=== PATIENT | male | born 1960 | race Caucasian/White ===

== ENCOUNTER 2024-07-18 11:30 | Inpatient (IN) ==
--- NOTE | 2024-07-18 11:46 | Emergency Department Note ---
Impression & Plan Syncope, Alcohol abuse, Bed bug bite, Troponin I above reference range, Rhabdomyolysis, Symptomatic anemia, High anion gap metabolic acidosis, Elevated lactic acid level ED Provider Note NAME: BLANCA CLAIRE AGE: 64 SEX: M : 1960 ARRIVES VIA: Ambulance INFORMANT: Patient ED PROVIDER(S): Remigio Atkinson MD CHIEF COMPLAINT: Syncope PLAN: Disposition: Home MEDICAL DECISION MAKING: The patient is a 64 year-old gentleman with a past medical history of alcoholism who presents to the emergency department via EMS after being found down by his friend/roommate was a elderly gentleman where the patient reports she rolled out of bed last night and stepped in between the ground and could not get out. Patient reports he was in his normal state of health until last night and was in an awkward position where he could not get up. EMS was called to the scene for a lift assist but upon getting up the patient became acutely diaphoretic and had syncopized and was noted to have a heart rate in the 160s-170s in suspected a flutter/A-fib versus SVT blood pressure was noted to be 120/70's. Patient has any cough, congestion. Denies any chest pain or shortness of breath. He denies nausea or vomiting. The patient was given 500 cc of normal saline by EMS and 10 mg of diltiazem following my discussion with EMS on medical command consultation. There was some suspicion that there could have been some infiltration of the line but upon arrival emergency department his heart rate had improved to the 100s-120s and sinus tachycardia. Patient admits to drinking hard liquor heavily on a daily basis. He reports he has had no alcohol here over the past several days. He acknowledges he likely is at high risk for withdrawal but has not felt "shaky" in his past several days. On evaluation the patient is ill-appearing, diaphoretic but no distress, afebrile heart rate in the 100s-120s and vital signs otherwise stable. He appears pale, clinically dry. He is moving extremities equally without focal deficit. Of note, bedbugs were identified on the patient and he did go through decontamination. EKG without overt acute ischemia. CXR negative for acute cardiopulmonary process per my personal preliminary review/interpretation. WBC 6.6K w without neutrophil elevation or left shift. H/H is 5.1/16.9 with macrocytic MCV of 105. Platelets normal limits. INR is 1.2. VBG with pH of 7.3 and pCO2 of 31. Chemistry demonstrates metabolic acidosis with bicarbonate of 17 and anion gap of 22 with lactic acid initially 11 subsequently downtrending to 6.2 following initial IV fluid resuscitation. Creatinine is within normal limits however BUN is elevated at 45 consistent patient is clinically dry appearance. Iron is low at 29. Total area within normal limits with AST mildly above normal at 67 and LFTs otherwise unremarkable. Initial CPK is 1078. Initial high sensitive troponin is 50.7 with repeat downtrending to 43.4. Lipase is mildly above normal at 103, nonspecific. Procalcitonin is elevated at 1.1. TSH within normal limits. Medical alcohol was undetectable. Respiratory BioFire was negative. CTA chest negative for PE. Bronchial wall thickening is described which may reflect infectious/inflammatory airway disease. Distal esophageal thickening also is present. Otherwise, CT of the head and C-spine negative for acute normalities. CT of the ab pelvis negative for acute abnormalities. Patient was treated with IV hydration with 2 L of normal saline. He was also consented for blood products and transfused 2 units of PRBCs. 4 mg of IV Protonix also provided the patient denies melena. Given elevated pro calcitonin he was treated empirically with IV ceftriaxone. He is additionally provided with banana bag and IV thiamine and given 2 mg of IV Ativan for prophylaxis against alcohol withdrawal. Case was discussed with Dr. Shen, [facility] hospitalist, who will evaluate the patient for admission. Triage Nursing notes reviewed and agree them. Prior/external medical records reviewed Vital Signs: reviewed Differential diagnosis: Infection, dehydration, metabolic abnormality, hypo/hyperglycemia, electrolyte disturbance, anemia, hypoxia, cardiac sources, intracerebral event, toxicologic, neurologic, as well as other pathologies. ER treatment provided: See below. Diagnostics interpreted by me: ECG: Normal sinus rhythm, 97 bpm, no ectopy, no overt ST elevation or depression, QTc 439, QRS 80. Cardiac Monitoring: An order for continuous cardiac monitoring was placed and demonstrated Normal sinus rhythm, 97 bpm, no ectopy. Laboratory studies: See below Imaging studies: See below Consultation(s): Case was discussed with Dr. Shen, [facility] hospitalist, who will evaluate the patient for admission. HPI: The patient is a 64 year-old gentleman with a past medical history of alcoholism who presents to the emergency department via EMS after being found down by his friend/roommate was a elderly gentleman where the patient reports she rolled out of bed last night and stepped in between the ground and could not get out. Patient reports he was in his normal state of health until last night and was in an awkward position where he could not get up. EMS was called to the scene for a lift assist but upon getting up the patient became acutely diaphoretic and had syncopized and was noted to have a heart rate in the 160s- 170s in suspected a flutter/A-fib versus SVT blood pressure was noted to be 120/70's. Patient has any cough, congestion. Denies any chest pain or shortness of breath. He denies nausea or vomiting. The patient was given 500 cc of normal saline by EMS and 10 mg of diltiazem following my discussion with EMS on medical command consultation. There was some suspicion that there could have been some infiltration of the line but upon arrival emergency department his heart rate had improved to the 100s-120s and sinus tachycardia. Patient admits to drinking hard liquor heavily on a daily basis. He reports he has had no alcohol here over the past several days. He acknowledges he likely is at high risk for withdrawal but has not felt "shaky" in his past several days. ROS: See above HPI for pertinent positives & negatives. A total of 10 systems reviewed and were otherwise negative. VITALS:See Below PHYSICAL EXAMINATION: GENERAL: Awake, alert, ill-appearing, unkempt, in no distress HENT: Normocephalic, atraumatic. Oropharynx with dry mucous membranes and otherwise unremarkable. EYES: Normal conjunctiva. Sclera non-icteric. EOMI. No nystamgus. PEARRL. NECK: Supple. No nuchal rigidity. FROM. No JVD. RESPIRATORY: Clear to auscultation. CARDIAC: Tachycardic rate, normal rhythm. Extremities warm and well perfused. Pulses equal. ABDOMEN: Soft, non-distended. No tenderness to palpation. No rebound or guarding. No masses. MUSCULOSKELETAL: Chest examination reveals no tenderness. The back is symmetrical on inspection without obvious abnormality. There is no CVA tenderness to palpation. No joint edema. LOWER EXTREMITIES: Calves are equal size bilaterally and non-tender. No edema. No discoloration. NEURO: No focal sensory or motor deficits noted. 5/5 strength and SILT x 4 extremities. SKIN: Moderate pallor. Cool and clammy. No rash or jaundice noted. ED COURSE: Critical Care: I have personally spent greater than 115 minutes of critical care time in the direct management of this patient. This includes bedside care, interpretation of diagnostic studies, and testing, discussion with consultants, patient, and family members, and other required patient management activities. This 115 minutes is in excess of all separately billable procedures. Remigio Atkinson MD Past Med/Surg History Problem List (Updated 07/18/24 @ 23:33 by Remigio Atkinson MD) Elevated lactic acid level (Acute) High anion gap metabolic acidosis (Acute) Symptomatic anemia (Acute) Bed bug bite (Acute) Alcohol abuse (Acute) COPD (chronic obstructive pulmonary disease) Macrocytic anemia Transaminitis Coagulopathy Rhabdomyolysis (Acute) Hypotension Troponin I above reference range (Acute) Bedbug bite Alcohol abuse Anemia Syncope (Acute) Medical History Alcohol dependence Social History Smoking Status: Current every day smoker Tobacco Type: Cigarettes Cigarettes Per Day: 20; Do You Dip or Chew Tobacco: No; Tobacco Cessation Education Requested by Patient: Yes Hx Alcohol Use: Yes Alcohol type: hard liquor Hx Substance Use: No (unknown) Preferred Language: [place] Beliefs That Will Affect Care: None Current Living Situation: Other Current Living Situation Comment: pt states lives in home with roommate provided by [employer] Other Information That Helps Us Care for You: No Feels Safe at Home: Yes Safety Concerns: Feels Safe At This Time Assistive Devices: None Allergies Allergies Allergy/AdvReac Type Severity Reaction Status Date / Time [id number] Allergy Unknown Uncoded 09/21/05 12:32 Home Meds Home Medications Medication Instructions Recorded Confirmed No Known Home Medications 07/18/24 07/18/24 Results & Data (ED) Vital Signs Vital Signs - 24 hr 07/18/24 11:50 07/18/24 12:30 07/18/24 12:32 Temperature 37.4 C Temperature Source Oral Pulse Rate 101 H 97 H Pulse Rate [Finger] 113 H Pulse Rate from SpO2 Sensor Respiratory Rate 26 H 24 Respiratory Effort / Characteristics Non-Labored Spontaneous Respiratory Depth Normal Blood Pressure 134/7 L Blood Pressure [Left Arm] 121/57 L Blood Pressure Mean 49 Blood Pressure Mean [Left Arm] 78 Pulse Oximetry 100 99 Oxygen Delivery Method Room Air Room Air Oxygen Flow Rate Sepsis Recent Fever Within 48 Hours No Sepsis New/Unexplained Change in Mental Status No Sepsis Action Taken by Nursing Physician Notified Oxygen Flow Rate - Titration Pulse Oximetry Post Tiitration 07/18/24 13:27 07/18/24 14:00 07/18/24 14:00 Temperature Temperature Source Pulse Rate 234 H 174 H Pulse Rate [Finger] 104 H Pulse Rate from SpO2 Sensor Respiratory Rate 20 25 H Respiratory Effort / Characteristics Respiratory Depth Blood Pressure Blood Pressure [Left Arm] 111/63 Blood Pressure Mean Blood Pressure Mean [Left Arm] 79 Pulse Oximetry 99 Oxygen Delivery Method Room Air Oxygen Flow Rate Sepsis Recent Fever Within 48 Hours Sepsis New/Unexplained Change in Mental Status Sepsis Action Taken by Nursing Oxygen Flow Rate - Titration Pulse Oximetry Post Tiitration 07/18/24 14:00 07/18/24 14:00 07/18/24 14:00 Temperature Temperature Source Pulse Rate Pulse Rate [Finger] Pulse Rate from SpO2 Sensor Respiratory Rate Respiratory Effort / Characteristics Respiratory Depth Blood Pressure 99/70 L 99/70 L 99/70 L Blood Pressure [Left Arm] Blood Pressure Mean 98 98 98 Blood Pressure Mean [Left Arm] Pulse Oximetry Oxygen Delivery Method Oxygen Flow Rate Sepsis Recent Fever Within 48 Hours Sepsis New/Unexplained Change in Mental Status Sepsis Action Taken by Nursing Oxygen Flow Rate - Titration Pulse Oximetry Post Tiitration 07/18/24 14:03 07/18/24 14:04 07/18/24 14:04 Temperature Temperature Source Pulse Rate 113 H Pulse Rate [Finger] Pulse Rate from SpO2 Sensor 116 H Respiratory Rate 24 Respiratory Effort / Characteristics Respiratory Depth Blood Pressure 111/63 111/63 Blood Pressure [Left Arm] Blood Pressure Mean 79 79 Blood Pressure Mean [Left Arm] Pulse Oximetry 94 Oxygen Delivery Method Oxygen Flow Rate Sepsis Recent Fever Within 48 Hours Sepsis New/Unexplained Change in Mental Status Sepsis Action Taken by Nursing Oxygen Flow Rate - Titration Pulse Oximetry Post Tiitration 07/18/24 14:04 07/18/24 14:06 07/18/24 14:07 Temperature Temperature Source Pulse Rate 103 H 96 H Pulse Rate [Finger] Pulse Rate from SpO2 Sensor 103 H Respiratory Rate 23 Respiratory Effort / Characteristics Respiratory Depth Blood Pressure 111/63 Blood Pressure [Left Arm] Blood Pressure Mean 79 Blood Pressure Mean [Left Arm] Pulse Oximetry 100 Oxygen Delivery Method Oxygen Flow Rate Sepsis Recent Fever Within 48 Hours Sepsis New/Unexplained Change in Mental Status Sepsis Action Taken by Nursing Oxygen Flow Rate - Titration Pulse Oximetry Post Tiitration 07/18/24 14:28 07/18/24 14:30 07/18/24 14:30 Temperature Temperature Source Pulse Rate Pulse Rate [Finger] 101 H Pulse Rate from SpO2 Sensor Respiratory Rate 24 Respiratory Effort / Characteristics Respiratory Depth Blood Pressure 113/64 111/71 Blood Pressure [Left Arm] 111/71 Blood Pressure Mean 69 80 Blood Pressure Mean [Left Arm] 84 Pulse Oximetry 99 Oxygen Delivery Method Room Air Oxygen Flow Rate Sepsis Recent Fever Within 48 Hours Sepsis New/Unexplained Change in Mental Status Sepsis Action Taken by Nursing Oxygen Flow Rate - Titration Pulse Oximetry Post Tiitration 07/18/24 14:30 07/18/24 14:45 07/18/24 14:45 Temperature Temperature Source Pulse Rate 101 H Pulse Rate [Finger] Pulse Rate from SpO2 Sensor 96 H Respiratory Rate 18 Respiratory Effort / Characteristics Respiratory Depth Blood Pressure 115/60 115/60 Blood Pressure [Left Arm] Blood Pressure Mean 94 94 Blood Pressure Mean [Left Arm] Pulse Oximetry 97 Oxygen Delivery Method Oxygen Flow Rate Sepsis Recent Fever Within 48 Hours Sepsis New/Unexplained Change in Mental Status Sepsis Action Taken by Nursing Oxygen Flow Rate - Titration Pulse Oximetry Post Tiitration 07/18/24 14:48 07/18/24 14:57 07/18/24 14:59 Temperature Temperature Source Pulse Rate 85 99 H Pulse Rate [Finger] Pulse Rate from SpO2 Sensor 89 100 H Respiratory Rate 23 24 Respiratory Effort / Characteristics Respiratory Depth Blood Pressure 105/65 Blood Pressure [Left Arm] Blood Pressure Mean 67 Blood Pressure Mean [Left Arm] Pulse Oximetry 93 92 Oxygen Delivery Method Oxygen Flow Rate Sepsis Recent Fever Within 48 Hours Sepsis New/Unexplained Change in Mental Status Sepsis Action Taken by Nursing Oxygen Flow Rate - Titration Pulse Oximetry Post Tiitration 07/18/24 15:00 07/18/24 15:00 07/18/24 15:03 Temperature Temperature Source Pulse Rate 98 H Pulse Rate [Finger] Pulse Rate from SpO2 Sensor 97 H Respiratory Rate 25 H Respiratory Effort / Characteristics Respiratory Depth Blood Pressure 106/48 L 106/48 L Blood Pressure [Left Arm] Blood Pressure Mean 71 71 Blood Pressure Mean [Left Arm] Pulse Oximetry 77 L Oxygen Delivery Method Oxygen Flow Rate Sepsis Recent Fever Within 48 Hours Sepsis New/Unexplained Change in Mental Status Sepsis Action Taken by Nursing Oxygen Flow Rate - Titration Pulse Oximetry Post Tiitration 07/18/24 15:04 07/18/24 15:06 07/18/24 15:08 Temperature Temperature Source Pulse Rate 96 H Pulse Rate [Finger] Pulse Rate from SpO2 Sensor 84 Respiratory Rate 27 H Respiratory Effort / Characteristics Respiratory Depth Blood Pressure 115/54 L Blood Pressure [Left Arm] Blood Pressure Mean 83 Blood Pressure Mean [Left Arm] Pulse Oximetry 80 L 94 Oxygen Delivery Method Room Air Nasal Cannula Oxygen Flow Rate 0 Sepsis Recent Fever Within 48 Hours Sepsis New/Unexplained Change in Mental Status Sepsis Action Taken by Nursing Oxygen Flow Rate - Titration 3 Pulse Oximetry Post Tiitration 94 07/18/24 15:08 07/18/24 15:08 07/18/24 15:15 Temperature Temperature Source Pulse Rate 90 Pulse Rate [Finger] Pulse Rate from SpO2 Sensor 93 H Respiratory Rate 28 H Respiratory Effort / Characteristics Respiratory Depth Blood Pressure 115/54 L 115/54 L Blood Pressure [Left Arm] Blood Pressure Mean 83 83 Blood Pressure Mean [Left Arm] Pulse Oximetry 94 Oxygen Delivery Method Oxygen Flow Rate Sepsis Recent Fever Within 48 Hours Sepsis New/Unexplained Change in Mental Status Sepsis Action Taken by Nursing Oxygen Flow Rate - Titration Pulse Oximetry Post Tiitration 07/18/24 15:15 07/18/24 15:15 07/18/24 15:15 Temperature Temperature Source Pulse Rate Pulse Rate [Finger] Pulse Rate from SpO2 Sensor Respiratory Rate Respiratory Effort / Characteristics Respiratory Depth Blood Pressure 120/61 120/61 120/61 Blood Pressure [Left Arm] Blood Pressure Mean 77 77 77 Blood Pressure Mean [Left Arm] Pulse Oximetry Oxygen Delivery Method Oxygen Flow Rate Sepsis Recent Fever Within 48 Hours Sepsis New/Unexplained Change in Mental Status Sepsis Action Taken by Nursing Oxygen Flow Rate - Titration Pulse Oximetry Post Tiitration Laboratory Data 07/18/24 20:54 07/18/24 11:45 Lab Results 07/18/24 07/18/24 07/18/24 Range/Units 11:45 11:47 11:54 WBC 6.69 (4.8-10.8) K/ul RBC 1.61 L (4.70-6.10) M/uL Hgb 5.1 L* (14.0-18.0) g/dl POC Hgb 5.4 L* (14.0-18.0) g/dl Hct 16.9 L* (42.0-52.0) % POC Hct 16 L* (42-52) % MCV 105.0 H (80.0-100.0) fL MCH 31.7 (25.0-34.0) pg MCHC 30.2 L (32.0-36.0) g/dL RDW Std Deviation 52.4 H (36.4-46.3) fL RDW Coeff of Jourdan 14.0 (11.5-14.5) % Plt Count 296 (130-400) K/uL MPV 10.1 (9.4-12.4) fL Immature Gran % (Auto) 1.2 % Neut % (Auto) 68.8 % Lymph % (Auto) 17.9 % Huntington % (Auto) 12.0 % Eos % (Auto) 0.0 % Baso % (Auto) 0.1 % Reticulocyte % (Auto) 6.12 H (0.50-2.00) % Neut # (Auto) 4.60 (1.40-6.50) K/uL Lymph # (Auto) 1.20 (1.20-3.40) K/uL Huntington # (Auto) 0.80 H (0.11-0.59) K/uL Eos # (Auto) 0.00 (0.00-0.50) K/uL Baso # (Auto) 0.01 (0.00-0.20) K/uL Reticulocyte # 0.100 (0.020-0.100) 10^6/uL Immature Gran # (Auto) 0.08 (0.01-0.20) K/uL Absolute Nucleated RBC 0.15 H (0.00-0.12) K/uL Nucleated RBC % (auto) 2.2 % Polychromasia 1+ Peripher Smr Path Cons PT 13.0 H (9.0-12.0) Seconds INR 1.2 H (0.9-1.1) VBG pH (7.36-7.41) VBG pCO2 (38-50) mmHg VBG pO2 mmHg VBG HCO3 mmol/L VBG O2 Saturation % VBG Base Excess mEq/L POC Sodium 134 L (135-144) mmol/L Sodium 136 (136-145) mmol/L POC Potassium 3.0 L (3.3-5.0) mmol/L Potassium 3.1 L (3.5-5.1) mmol/L POC Chloride 98 L (101-112) mmol/L Chloride 97 L (98-107) mmol/L Carbon Dioxide 17 L (21-32) mmol/L POC Total CO2 15 L (24-31) mmol/L Anion Gap 22 H (3-11) POC Anion Gap 25.0 (16-25) mmol/L POC BUN 38 H (7-18) mg/dl BUN 45 H (6-23) mg/dl Creatinine 1.08 (0.6-1.4) mg/dl POC Creatinine 1.0 (0.6-1.3) mg/dl Est Cr Clr Drug Dosing 56.1 ml/min Est GFR ( Amer) 84.8 ml/min Est GFR (Non-Af Amer) 73.2 ml/min BUN/Creatinine Ratio 41.7 H (10-20) Glucose 190 H (70-99(Fasting)) mg/dl POC Glucose (other) 182 H (70-99) mg/dl Osmolality 301 H (280-300) mOsm/kg Lactate 11.0 H* (0.4-2.0) mmol/L Calcium 8.7 (8.6-10.3) mg/dl POC Ioniz Calcium Dorie 1.17 (1.12-1.32) mmol/l Phosphorus 2.7 (2.5-4.9) mg/dl Magnesium 2.3 (1.7-2.4) mg/dl Iron 29 L (35-175) mcg/dl Unsaturated IBC 227 (155-355) mcg/dl Transferrin 201 (200-360) mg/dl Ferritin 134.7 (8-388) ng/ml Total Bilirubin 0.6 (0.2-1.0) mg/dl AST 67 H (13-39) U/L ALT 37 (7-52) U/L Alkaline Phosphatase 33 L (34-104) U/L Total Creatine Kinase 1078 H (30-223) U/L Troponin I High Sens 58.7 H* (0-20) pg/ml Total Protein 5.0 L (6.0-8.3) gm/dl Albumin 3.1 L (3.4-5.0) gm/dl Globulin 1.9 L (2.5-4.0) gm/dl Albumin/Globulin Ratio 1.6 (0.9-2) Lipase 103 H (11-82) U/L Vitamin B12 352 (180-914) pg/ml Folate 3.05 L (>5.38) ng/ml Procalcitonin 1.19 H (0-0.5) ng/ml TSH (0.300-4.500) uIu/ml Salicylates (3.0-30) mg/dl Acetaminophen (10-30) ug/ml Ethyl Alcohol mg/dL < 10.0 (<10.0) mg/dl Adenovirus (PCR) Not Detected (NotDetected) Anaplasma Smear Babesia Smear B. pertussis DNA (PCR) Not Detected (NotDetected) B.parapertussis DNA PCR Not Detected (NotDetected) Lyme Disease Screen (Negative) C. pneumoniae DNA (PCR) Not Detected (NotDetected) Coronavirus OC43 (PCR) Not Detected (NotDetected) Coronavirus HKU1 (PCR) Not Detected (NotDetected) Coronavirus 229E (PCR) Not Detected (NotDetected) SARS-CoV-2 (PCR) Not Detected (NotDetected) Coronavirus NL63 (PCR) Not Detected (NotDetected) HIV 1&2 Ab/P24 Ag 4thGn (Negative) Human Metapneumovir PCR Not Detected (NotDetected) Influenza Type A (PCR) Not Detected (NotDetected) Influenza Type B (PCR) Not Detected (NotDetected) M. pneumoniae (PCR) Not Detected (NotDetected) Parainfluenza 1 (PCR) Not Detected (NotDetected) Parainfluenza 2 (PCR) Not Detected (NotDetected) Parainfluenza 3 (PCR) Not Detected (NotDetected) Parainfluenza 4 (PCR) Not Detected (NotDetected) RSV (PCR) Not Detected (NotDetected) Entero/Rhino (PCR) Not Detected (NotDetected) Blood Type Blood Type Recheck Antibody Screen Crossmatch 07/18/24 07/18/24 07/18/24 Range/Units 11:58 12:18 12:53 WBC (4.8-10.8) K/ul RBC (4.70-6.10) M/uL Hgb (14.0-18.0) g/dl POC Hgb (14.0-18.0) g/dl Hct (42.0-52.0) % POC Hct (42-52) % MCV (80.0-100.0) fL MCH (25.0-34.0) pg MCHC (32.0-36.0) g/dL RDW Std Deviation (36.4-46.3) fL RDW Coeff of Jourdan (11.5-14.5) % Plt Count (130-400) K/uL MPV (9.4-12.4) fL Immature Gran % (Auto) % Neut % (Auto) % Lymph % (Auto) % Huntington % (Auto) % Eos % (Auto) % Baso % (Auto) % Reticulocyte % (Auto) (0.50-2.00) % Neut # (Auto) (1.40-6.50) K/uL Lymph # (Auto) (1.20-3.40) K/uL Huntington # (Auto) (0.11-0.59) K/uL Eos # (Auto) (0.00-0.50) K/uL Baso # (Auto) (0.00-0.20) K/uL Reticulocyte # (0.020-0.100) 10^6/uL Immature Gran # (Auto) (0.01-0.20) K/uL Absolute Nucleated RBC (0.00-0.12) K/uL Nucleated RBC % (auto) % Polychromasia Peripher Smr Path Cons Cancelled PT (9.0-12.0) Seconds INR (0.9-1.1) VBG pH 7.30 L (7.36-7.41) VBG pCO2 31 L (38-50) mmHg VBG pO2 39 mmHg VBG HCO3 15 mmol/L VBG O2 Saturation < 60.0 % VBG Base Excess -9.9 mEq/L POC Sodium (135-144) mmol/L Sodium (136-145) mmol/L POC Potassium (3.3-5.0) mmol/L Potassium (3.5-5.1) mmol/L POC Chloride (101-112) mmol/L Chloride (98-107) mmol/L Carbon Dioxide (21-32) mmol/L POC Total CO2 (24-31) mmol/L Anion Gap (3-11) POC Anion Gap (16-25) mmol/L POC BUN (7-18) mg/dl BUN (6-23) mg/dl Creatinine (0.6-1.4) mg/dl POC Creatinine (0.6-1.3) mg/dl Est Cr Clr Drug Dosing ml/min Est GFR ( Amer) ml/min Est GFR (Non-Af Amer) ml/min BUN/Creatinine Ratio (10-20) Glucose (70-99(Fasting)) mg/dl POC Glucose (other) (70-99) mg/dl Osmolality (280-300) mOsm/kg Lactate (0.4-2.0) mmol/L Calcium (8.6-10.3) mg/dl POC Ioniz Calcium Dorie (1.12-1.32) mmol/l Phosphorus (2.5-4.9) mg/dl Magnesium (1.7-2.4) mg/dl Iron (35-175) mcg/dl Unsaturated IBC (155-355) mcg/dl Transferrin (200-360) mg/dl Ferritin (8-388) ng/ml Total Bilirubin (0.2-1.0) mg/dl AST (13-39) U/L ALT (7-52) U/L Alkaline Phosphatase (34-104) U/L Total Creatine Kinase (30-223) U/L Troponin I High Sens (0-20) pg/ml Total Protein (6.0-8.3) gm/dl Albumin (3.4-5.0) gm/dl Globulin (2.5-4.0) gm/dl Albumin/Globulin Ratio (0.9-2) Lipase (11-82) U/L Vitamin B12 (180-914) pg/ml Folate (>5.38) ng/ml Procalcitonin (0-0.5) ng/ml TSH (0.300-4.500) uIu/ml Salicylates (3.0-30) mg/dl Acetaminophen (10-30) ug/ml Ethyl Alcohol mg/dL (<10.0) mg/dl Adenovirus (PCR) (NotDetected) Anaplasma Smear See Comment Babesia Smear See Comment B. pertussis DNA (PCR) (NotDetected) B.parapertussis DNA PCR (NotDetected) Lyme Disease Screen Negative (Negative) C. pneumoniae DNA (PCR) (NotDetected) Coronavirus OC43 (PCR) (NotDetected) Coronavirus HKU1 (PCR) (NotDetected) Coronavirus 229E (PCR) (NotDetected) SARS-CoV-2 (PCR) (NotDetected) Coronavirus NL63 (PCR) (NotDetected) HIV 1&2 Ab/P24 Ag 4thGn Negative (Negative) Human Metapneumovir PCR (NotDetected) Influenza Type A (PCR) (NotDetected) Influenza Type B (PCR) (NotDetected) M. pneumoniae (PCR) (NotDetected) Parainfluenza 1 (PCR) (NotDetected) Parainfluenza 2 (PCR) (NotDetected) Parainfluenza 3 (PCR) (NotDetected) Parainfluenza 4 (PCR) (NotDetected) RSV (PCR) (NotDetected) Entero/Rhino (PCR) (NotDetected) Blood Type O Positive Blood Type Recheck O Positive Antibody Screen NEGATIVE Crossmatch See Detail 07/18/24 Range/Units 14:59 WBC (4.8-10.8) K/ul RBC (4.70-6.10) M/uL Hgb 4.1 L* (14.0-18.0) g/dl POC Hgb (14.0-18.0) g/dl Hct 13.6 L* (42.0-52.0) % POC Hct (42-52) % MCV (80.0-100.0) fL MCH (25.0-34.0) pg MCHC (32.0-36.0) g/dL RDW Std Deviation (36.4-46.3) fL RDW Coeff of Jourdan (11.5-14.5) % Plt Count (130-400) K/uL MPV (9.4-12.4) fL Immature Gran % (Auto) % Neut % (Auto) % Lymph % (Auto) % Huntington % (Auto) % Eos % (Auto) % Baso % (Auto) % Reticulocyte % (Auto) (0.50-2.00) % Neut # (Auto) (1.40-6.50) K/uL Lymph # (Auto) (1.20-3.40) K/uL Huntington # (Auto) (0.11-0.59) K/uL Eos # (Auto) (0.00-0.50) K/uL Baso # (Auto) (0.00-0.20) K/uL Reticulocyte # (0.020-0.100) 10^6/uL Immature Gran # (Auto) (0.01-0.20) K/uL Absolute Nucleated RBC (0.00-0.12) K/uL Nucleated RBC % (auto) % Polychromasia Peripher Smr Path Cons PT (9.0-12.0) Seconds INR (0.9-1.1) VBG pH (7.36-7.41) VBG pCO2 (38-50) mmHg VBG pO2 mmHg VBG HCO3 mmol/L VBG O2 Saturation % VBG Base Excess mEq/L POC Sodium (135-144) mmol/L Sodium (136-145) mmol/L POC Potassium (3.3-5.0) mmol/L Potassium (3.5-5.1) mmol/L POC Chloride (101-112) mmol/L Chloride (98-107) mmol/L Carbon Dioxide (21-32) mmol/L POC Total CO2 (24-31) mmol/L Anion Gap (3-11) POC Anion Gap (16-25) mmol/L POC BUN (7-18) mg/dl BUN (6-23) mg/dl Creatinine (0.6-1.4) mg/dl POC Creatinine (0.6-1.3) mg/dl Est Cr Clr Drug Dosing ml/min Est GFR ( Amer) ml/min Est GFR (Non-Af Amer) ml/min BUN/Creatinine Ratio (10-20) Glucose (70-99(Fasting)) mg/dl POC Glucose (other) (70-99) mg/dl Osmolality (280-300) mOsm/kg Lactate 6.2 H* (0.4-2.0) mmol/L Calcium (8.6-10.3) mg/dl POC Ioniz Calcium Dorie (1.12-1.32) mmol/l Phosphorus (2.5-4.9) mg/dl Magnesium (1.7-2.4) mg/dl Iron (35-175) mcg/dl Unsaturated IBC (155-355) mcg/dl Transferrin (200-360) mg/dl Ferritin (8-388) ng/ml Total Bilirubin (0.2-1.0) mg/dl AST (13-39) U/L ALT (7-52) U/L Alkaline Phosphatase (34-104) U/L Total Creatine Kinase (30-223) U/L Troponin I High Sens 43.4 H D (0-20) pg/ml Total Protein (6.0-8.3) gm/dl Albumin (3.4-5.0) gm/dl Globulin (2.5-4.0) gm/dl Albumin/Globulin Ratio (0.9-2) Lipase (11-82) U/L Vitamin B12 (180-914) pg/ml Folate (>5.38) ng/ml Procalcitonin (0-0.5) ng/ml TSH 1.539 (0.300-4.500) uIu/ml Salicylates < 3.0 L (3.0-30) mg/dl Acetaminophen < 3 L (10-30) ug/ml Ethyl Alcohol mg/dL (<10.0) mg/dl Adenovirus (PCR) (NotDetected) Anaplasma Smear Babesia Smear B. pertussis DNA (PCR) (NotDetected) B.parapertussis DNA PCR (NotDetected) Lyme Disease Screen (Negative) C. pneumoniae DNA (PCR) (NotDetected) Coronavirus OC43 (PCR) (NotDetected) Coronavirus HKU1 (PCR) (NotDetected) Coronavirus 229E (PCR) (NotDetected) SARS-CoV-2 (PCR) (NotDetected) Coronavirus NL63 (PCR) (NotDetected) HIV 1&2 Ab/P24 Ag 4thGn (Negative) Human Metapneumovir PCR (NotDetected) Influenza Type A (PCR) (NotDetected) Influenza Type B (PCR) (NotDetected) M. pneumoniae (PCR) (NotDetected) Parainfluenza 1 (PCR) (NotDetected) Parainfluenza 2 (PCR) (NotDetected) Parainfluenza 3 (PCR) (NotDetected) Parainfluenza 4 (PCR) (NotDetected) RSV (PCR) (NotDetected) Entero/Rhino (PCR) (NotDetected) Blood Type Blood Type Recheck Antibody Screen Crossmatch Administered Medications Budesonide (Budesonide 0.25 Mg/2 Ml Vial (Pulmicort)) 0.25 mg NEB BIDR JARED Stop: 08/17/24 18:59 Last Admin: 07/18/24 20:14 Dose: 0.25 mg Documented By: ELIOT Formoterol Fumarate (Formoterol 20 Mcg/2 Ml Vial) 20 mcg INH BIDR JARED Stop: 08/17/24 18:59 Last Admin: 07/18/24 20:14 Dose: 20 mcg Documented By: ELIOT Folic Acid 1 mg/ Syringe 10 mls @ 5 mls/min IV QAM JARED Stop: 08/17/24 13:59 Last Admin: 07/18/24 15:23 Dose: 5 mls/min Documented By: GALI Parenteral Electrolytes (Plasma-Lyte A Ph 7.4) 1,000 mls @ 100 mls/hr IV .Q10H JARED Stop: 08/17/24 16:28 Last Infusion: 07/18/24 22:14 Dose: 0 mls/hr Documented By: Admin: 07/18/24 19:50 Dose: 100 mls/hr Documented By: Infusion: 07/18/24 19:50 Dose: Infused Documented By: Admin: 07/18/24 16:46 Dose: 100 mls/hr Documented By: MADELINE Miscellaneous (Icu Protocol For Hyperglycemia) 1 each N/A ACHS JARED Stop: 07/20/24 16:29 Last Admin: 07/18/24 19:52 Dose: 1 each Documented By: Admin: 07/18/24 16:46 Dose: Not Given Documented By: MADELINE Discontinued Medications Sodium Chloride (Nss) 1,000 mls @ 999 mls/hr IV .Q1H1M ONE Stop: 07/18/24 12:46 Last Infusion: 07/18/24 13:25 Dose: Infused Documented By: Admin: 07/18/24 12:20 Dose: 999 mls/hr Documented By: WILFREDO Multivitamins 10 ml/ Thiamine HCl 100 mg/ Folic Acid 1 mg/Sodium Chloride 1,011.2 mls @ 500 mls/hr IV .Q2H2M ONE Stop: 07/18/24 13:47 Last Infusion: 07/18/24 14:39 Dose: Infused Documented By: Admin: 07/18/24 12:20 Dose: 500 mls/hr Documented By: WILFREDO Thiamine HCl 200 mg/ Sodium (Chloride) 52 mls @ 210 mls/hr IV NOW STA Stop: 07/18/24 12:01 Last Infusion: 07/18/24 13:25 Dose: Infused Documented By: Admin: 07/18/24 12:20 Dose: 210 mls/hr Documented By: WILFREDO Pantoprazole Sodium 40 mg/ (Syringe) 10 mls @ 5 mls/min IV NOW ONE Stop: 07/18/24 12:03 Last Admin: 07/18/24 12:23 Dose: 5 mls/min Documented By: WILFREDO Ceftriaxone Sodium (Rocephin) 2,000 mg in 50 mls @ 100 mls/hr IV NOW STA Stop: 07/18/24 13:31 Last Infusion: 07/18/24 15:05 Dose: Infused Documented By: Admin: 07/18/24 14:35 Dose: 100 mls/hr Documented By: WILFREDO Potassium Chloride ([place] / Wtr) 10 meq in 100 mls @ 100 mls/hr IV Q1H JARED Stop: 07/18/24 19:28 Last Infusion: 07/18/24 22:04 Dose: Infused Documented By: Admin: 07/18/24 20:45 Dose: 100 mls/hr Documented By: Infusion: 07/18/24 20:19 Dose: Infused Documented By: Admin: 07/18/24 19:19 Dose: 100 mls/hr Documented By: Infusion: 07/18/24 19:08 Dose: Infused Documented By: Admin: 07/18/24 16:46 Dose: 100 mls/hr Documented By: MADELINE Phytonadione 5 mg/ Dextrose 50.5 mls @ 101 mls/hr IV NOW STA Stop: 07/18/24 17:25 Last Infusion: 07/18/24 19:00 Dose: Infused Documented By: Admin: 07/18/24 17:22 Dose: 101 mls/hr Documented By: MADELINE Ioversol (Optiray 320 100ml) 93 ml IV ONCE ONE Stop: 07/18/24 14:24 Last Admin: 07/18/24 14:23 Dose: 93 ml Documented By: RAMAN Lorazepam (Lorazepam 1 Mg/1 Ml Syr Ed Inj Use) 2 mg IV ONE STA Stop: 07/18/24 13:47 Last Admin: 07/18/24 14:35 Dose: 2 mg Documented By: WILFREDO Imaging Data Radiologist's Impression: Chest X-Ray 07/18/24 11:28 XR chest 1V portable CLINICAL HISTORY: Chest pain, nonspecific TECHNIQUE: Single frontal radiograph of the chest was obtained. Comparison: None available at the time of this dictation. FINDINGS: No lines and tubes are seen. The cardiomediastinal silhouette is normal. The lungs are clear. No evidence of pleural effusion or pneumothorax. IMPRESSION: No acute chest disease. ACT 112: Negative or not required by law. Electronically signed by: Corey Jiménez M.D. 07/18/2024 11:55 AM Abdomen/Pelvis CT 07/18/24 12:47 CT abd pelvis IV con only CLINICAL HISTORY: anemia, syncope, tachy TECHNIQUE: Helical axial images of the abdomen and pelvis were obtained and displayed. Automated dose lowering techniques and/or adjustment according to patient size were utilized for this exam. This exam was performed with intravenous contrast. CT DOSE: 2091.24 mGy.cm COMPARISON: None available at the time of this dictation. FINDINGS: Lower chest: For findings above the diaphragm, please see CT chest performed same day. Liver: Hepatic steatosis is noted. Gallbladder and biliary tree: No calcified gallstones. Normal caliber wall. No intra- or extrahepatic biliary ductal dilation. Pancreas: Unremarkable, no focal lesions. Spleen: Unremarkable. Adrenals: Unremarkable. Kidneys and ureters: Renal cysts are seen. Bladder: Unremarkable. Reproductive organs: Unremarkable. Bowel: Diverticulosis is seen without evidence of diverticulitis. A small hiatal hernia is seen. Lymph nodes Retroperitoneal: Unremarkable. Pelvic: Unremarkable. Mesenteric: Unremarkable. Peritoneum: Normal. Vessels: Atherosclerotic calcifications are seen. Infrarenal aortic aneurysm measures up to 30 mm. Abdominal wall: Unremarkable. Bones: Unremarkable. IMPRESSION: 1. No acute abnormalities and in particular no evidence of acute fracture. 2. Hepatic steatosis. 3. Diverticulosis is seen without diverticulitis. ACT 112: Negative or not required by law. Electronically signed by: Corey Jiménez M.D. 07/18/2024 3:[address] 07/18/24 12:[address] DOSE: HISTORY: fall TECHNIQUE: Multiaxial CT images of the cervical spine were performed and reformatted in the sagittal and coronal plane without the use of contrast. A dose lowering technique was utilized adhering to the principles of ALARA. COMPARISON: None. FINDINGS: No fractures. No subluxation. Prevertebral soft tissues and the C1-C2 interval are intact. No pneumothorax. IMPRESSION: No fractures within the cervical spine. ACT 112: Negative or not required by law. Electronically signed by: Mateus Taveras M.D. 07/18/2024 3:03 PM Chest CTA 07/18/24 12:47 CT angio chest PE protocol CLINICAL HISTORY: hypoxia, tachy, r/o PE TECHNIQUE: Multidetector row helical CT of the chest was performed with angiographic protocol. Coronal and sagittal reformations were obtained. Coronal and sagittal MIPS were obtained from the axial data set and were submitted for review. Automated dose lowering techniques and/or adjustment according to patient size were utilized for this exam. Comparison: Comparison is made to chest radiograph 07/08/2024 FINDINGS: Lungs and pleura: Diffuse centrilobular emphysema is seen most prominent in the upper lobes. Mild bronchial wall thickening is seen. Heart and pericardium: The pulmonary hypertrophy of the interatrial septum is seen. Vessels: No evidence of pulmonary embolism. Mediastinum and matthieu: Thickening of the distal esophagus is seen. Chest wall and lower neck: Unremarkable. Abdomen: For findings below the diaphragm, please refer to CT of the abdomen dated the same. Bones: Degenerative changes in the thoracic spine. IMPRESSION: 1. No acute abnormality and in particular no evidence of pulmonary embolus. 2. Bronchial wall thickening may represent infectious/inflammatory airways disease. 3. Distal esophageal thickening, clinical correlation for esophagitis is recommended. ACT 112: Negative or not required by law. Electronically signed by: Corey Jiménez M.D. 07/18/2024 2:[address] 07/18/24 12:47 CT SCAN OF THE BRAIN WITHOUT IV CONTRAST CLINICAL HISTORY: Fall. Change in mental status. COMPARISON STUDY: No priors. TECHNIQUE: Unenhanced axial CT scan of the brain is performed from the vertex to the skull base. A dose lowering technique was utilized adhering to the principles of ALARA. FINDINGS: Brain parenchyma: There is age-related involutional change noting mild subcortical and periventricular microangiopathic disease. There is no hemorrhage, mass effect, or evidence of acute territorial ischemia by CT criteria. Faith-white matter differentiation is preserved. No extra-axial fluid collection is seen. Ventricles, sulci, cisterns: Prominent secondary to involutional change. Intracranial vasculature: There is atherosclerotic calcification of the cavernous carotid arteries. Calvarium: Unremarkable. Sinuses and mastoids: The visualized paranasal sinuses are clear. The mastoid air cells are well pneumatized. Orbits: The bony orbits are grossly intact. IMPRESSION: No acute intracranial abnormality. ACT 112: Negative or not required by law. Electronically signed by: Vincent Meza M.D. 07/18/2024 2:45 PM Discharge Plan Visit Data Chief Complaint: Cardiac Assessment ED Provider: Remigio Atkinson Discharge Problem: Syncope, Alcohol abuse, Bed bug bite, Troponin I above reference range, Rhabdomyolysis, Symptomatic anemia, High anion gap metabolic acidosis, Elevated lactic acid level Patient Disposition: Admitted As Inpatient Discharge Instructions Interventions: ED Discharge Assessment Last Done: 07/18/24 16:04 Discharge Problem: Syncope Qualifiers: Syncope type: unspecified Qualified Code(s): R55 - Syncope and collapse Bed bug bite Qualifiers: Encounter type: initial encounter Qualified Code(s): W57.XXXA - Bitten or stung by nonvenomous insect and other nonvenomous arthropods, initial encounter Rhabdomyolysis Qualifiers: Rhabdomyolysis type: traumatic Encounter type: initial encounter Qualified Code(s): T79.6XXA - Traumatic ischemia of muscle, initial encounter
--- NOTE | 2024-07-18 11:57 | XRay Report ---
XR chest 1V portable CLINICAL HISTORY: Chest pain, nonspecific TECHNIQUE: Single frontal radiograph of the chest was obtained. Comparison: None available at the time of this dictation. FINDINGS: No lines and tubes are seen. The cardiomediastinal silhouette is normal. The lungs are clear. No evid ence of pleural effusion or pneumothorax. IMPRESSION: No acute chest disease. ACT 112: Negative or not required by law. Electronically signed by: Corey Jiménze M.D. 07/18/2024 11:55 AM
[2024-07-18] MEDS ORDERED: SODIUM CHLORIDE 0.9% 250 ML IV PRN ×3 (12:00→21:55)
[2024-07-18 12:07] LABS: iSTAT Hemoglobin 5.4 g/dl (14.0-18.0); iSTAT Ionized Calcium 1.17 mmol/l (1.12-1.32)
[2024-07-18] MEDS: SODIUM CHLORIDE 0.9% 1,000 ML IV ONE (12:20)
[2024-07-18] MEDS: MULTI-VITAMIN INFUSION 10 ML, THIAMINE HCL 100 MG, FOLIC ACID 1 MG in SODIUM CHLORIDE 0... IV ONE (12:20)
[2024-07-18] MEDS: THIAMINE HCL 200 MG in SODIUM CHLORIDE 0.9% 50 ML IV STA (12:20)
[2024-07-18] MEDS: PANTOprazole 40 MG in SYRINGE 0 ML IV ONE (12:23)
[2024-07-18 12:31] LABS: Base Excess VBG -9.9 mEq/L; HCO3 VBG 15 mmol/L; Oxygen Saturation VBG < 60.0 %; PCO2 VBG 31 mmHg (38-50); PO2 VBG 39 mmHg
[2024-07-18 12:38] LABS: Hematocrit (blood only) 16.9 % (42.0-52.0); Hemoglobin 5.1 g/dl (14.0-18.0); Mean Corpuscular Hemoglobin 31.7 pg (25.0-34.0); Mean Corpuscular Hgb Conc 30.2 g/dL (32.0-36.0); Mean Platelet Volume 10.1 fL (9.4-12.4); Nucleated RBC # (auto) 0.15 K/uL (0.00-0.12); Nucleated RBC % (auto) 2.2 %; Platelet Count 296 K/uL (130-400); RDW Standard Deviation 52.4 fL (36.4-46.3); Red Blood Count 1.61 M/uL (4.70-6.10); White Blood Count 6.69 K/ul (4.8-10.8)
[2024-07-18 12:39] LABS: Albumin Globulin Ratio 1.6 (0.9-2); Albumin Level 3.1 gm/dl (3.4-5.0); BUN Creatinine Ratio 41.7 (10-20); Bilirubin,Total 0.6 mg/dl (0.2-1.0); Calcium 8.7 mg/dl (8.6-10.3); Creatinine Clr Calc Pharmacy 56.1 ml/min; Est GFR (African American) 84.8 ml/min; Est GFR (Non-African American) 73.2 ml/min; Globulin 1.9 gm/dl (2.5-4.0); INR 1.2 (0.9-1.1); Magnesium 2.3 mg/dl (1.7-2.4); Phosphorus 2.7 mg/dl (2.5-4.9); Potassium 3.1 mmol/L (3.5-5.1)
[2024-07-18 12:42] LABS: Basophils # (auto) 0.01 K/uL (0.00-0.20); Basophils % (auto) 0.1 %; Immature Granulocytes # (auto) 0.08 K/uL (0.01-0.20); Immature Granulocytes % (auto) 1.2 %; Lymphocytes % (auto) 17.9 %; Neutrophils % (auto) 68.8 %; Polychromasia 1+
[2024-07-18 12:43] LABS: Reticulocyte % 6.12 % (0.50-2.00)
[2024-07-18 12:57] LABS: Ferritin 134.7 ng/ml (8-388); Troponin I High Sensitivity 58.7 pg/ml (0-20)
[2024-07-18 13:24] LABS: Adenovirus PCR Not Detected (NotDetected); Bordetella parapertussis PCR Not Detected (NotDetected); Bordetella pertussis PCR Not Detected (NotDetected); Chlamydia pneumoniae PCR Not Detected (NotDetected); Coronavirus 229E PCR Not Detected (NotDetected); Coronavirus CoV-2 (COVID19)PCR Not Detected (NotDetected); Coronavirus HKU1 PCR Not Detected (NotDetected); Coronavirus NL63 PCR Not Detected (NotDetected); Coronavirus OC43PCR Not Detected (NotDetected); Human Metapneumovirus PCR Not Detected (NotDetected); Influenza A PCR Not Detected (NotDetected); Influenza B PCR Not Detected (NotDetected); Mycoplasma pneumoniae PCR Not Detected (NotDetected); Parainfluenza Virus 1 PCR Not Detected (NotDetected); Parainfluenza Virus 2 PCR Not Detected (NotDetected); Parainfluenza Virus 3 PCR Not Detected (NotDetected); Parainfluenza Virus 4 PCR Not Detected (NotDetected); Respiratory Syncytial VirusPCR Not Detected (NotDetected); Rhinovirus/Enterovirus PCR Not Detected (NotDetected)
[2024-07-18 13:24] LABS: Folate (Folic Acid),Ser orPlas 3.05 ng/ml (>5.38)
[2024-07-18] MEDS ORDERED: LORazepam 3 MG in SYRINGE 1.5 ML IV PRN (13:46)
[2024-07-18] MEDS ORDERED: Ativan IV Alcohol Withdrawal--Active Protocol IV PRN (13:46)
[2024-07-18] MEDS ORDERED: LORazepam 2 MG in SYRINGE 1 ML IV PRN (13:46)
[2024-07-18] MEDS ORDERED: LORazepam 1 MG in SYRINGE 0.5 ML IV PRN (13:46)
--- NOTE | 2024-07-18 13:57 | History & Physical Report ---
Date of Service July 18, 2024 Assessment & Plan (1) Anemia: Plan: Anemia, hemoglobin 5.1 on admission With fluids patient is normotensive, and minimally tachycardic at bedside assessment. He denies GI bleeding. Likely chronic given relatively normal vitals and good mentation despite profound anemia. DDx includes AOCD, nutritional deficiency versus, alcohol toxic. Repeat H&H 4.1. 2 units transfusion, additional units on hold Ferritin 134, UIBC normal. Folate low at 3.05, B12 normal 352. Folate supplementation continued. Was given 40 mg Protonix IV empirically in the ER. Denies GI bleeding to admitting provider, will keep on daily prophylaxis. CTA of the chest, CTabdomen/pelvis w/ IV contrast, CT head/cervical spine pending CTA chest: No evidence of PE. Bronchial wall thickening. Distal esophageal thickening CThead, CTC-spine: No acute abnormalities CTA/P: No acute abnormalities, no fracture, hepatic steatosis. Diverticulosis without diverticulitis Transfuse to a threshold of 7.0. Repeat H&H after 2 units is pending (2) Alcohol abuse: Plan: Fifth of alcohol a day, last intake 2 days prior to admission (Thursday) Will admit to ICU for risk of accelerating withdrawal, high risk patient PETERSON S. Defer phenobarb load on admission No evidence of aspiration pneumonia on x-ray.? Elevated Pro-[place] from hypotension No evidence of aspiration on CT chest chest/x-ray Received 1 dose of empiric Rocephin (3) Bedbug bite: Plan: Patient taken to decontamination Isolation precautions (4) Troponin I above reference range: Plan: No chest pain Troponin 58.7 on admission, 2-hour repeat pending Clinically is without chest pain EKG sinus, lateral ST depressions Suspect demand ischemia with severe anemia and hypotension Echo pending Prehospital was with rapid rate, narrow suspected to be A-fib/flutter versus SVT versus sinus tach. Did receive 10 mg of diltiazem prehospital. (5) Rhabdomyolysis: Plan: Patient down for several hours. [id number] IV FM approximately 100 cc/h BMP daily, trend CK daily (6) COPD (chronic obstructive pulmonary disease): Plan: Longstanding history of tobacco use Patient reports he was previously on Spiriva, however has not followed up with a physician in a long time and has not been on any inhalers recently May follow-up for PFTs as outpatient BioFire negative Started on formoterol/budesonide inhaled, continued Plan DVT prophylaxis: Pharmacoprophylaxis deferred due to anemia Disposition: ICU CODE STATUS: DNR/DNI Diet: N.p.o. History of Present Illness Primary Care Provider: NO PCP Mich Castellano is a 64-year-old male patient with a past medical history of alcoholism who was found down in his home by his housemate. Per patient patient felt normal last night, but rolled out of bed last night and fell from bed and could not get back up. EMS at the scene helped patient attempted get into bed but was diaphoretic and with an episode of syncope, heart rate in the [id number]. Was brought to the hospital for emergent evaluation. On ER evaluation no leukocytosis, acute anemia with hemoglobin 5.1 macrocytic MCV 105. VBG 7 point 02/27/ Hypokalemic 3.0, creatinine is at its baseline of 1.0 Lactate markedly elevated at 11 CK elevated at 1078 High sensitive troponin 58.7 Procalcitonin elevated 1.19 BioFire pending INR 1.2 EKG: Normal sinus rhythm, nonspecific changes? Anterior lateral ischemia Mich is seen at the bedside. He reports he moved to [place] after he was previously homeless. Has been drinking 1/5 of liquor per day for "as long as I can remember". Reports he ran out of money to buy alcohol and stopped drinking over the weekend, last drink was Thursday evening. He reports he has felt progressively fatigued and shaky. Rolled out of bed last night and felt too weak to get back up. EMS was called, initially was refusing evaluation however had an episode of diaphoresis syncope and tachycardia and ultimately agreed and was brought to the hospital for evaluation. He reports he has had a productive cough in the last couple of days. He has a history of tobacco use at least a pack per day, and he thinks COPD but has not been on any inhaler since he was able to see a long-term physician many years ago. He thinks he was on Spiriva in the past. Denies other history of medical problems. He denies melena, bright red blood per rectum, hemoptysis. Did mention some possible bright red blood in the stool to ER provider however denies this to admitting provider. Denies abdominal pain. Denies fever/chills. Does feel shaky. Denies dysuria. Denies recreational drug use. Endorses alcohol intake as noted in tobacco intake as noted. He reports in the event of a cardiopulmonary arrest he would not want CPR resuscitation, confirms DNR/DNI admission. Reports he has not seen a doctor in "a very long time "and does not take any prescription medications. He denies any history of cardiac disease/TX/arrhythmia, denies history of strokes, denies history of diabetes. Denies history of immunosuppression and denies history of cancer. Allergies Allergy/AdvReac Type Severity Reaction Status Date / Time [id number] Allergy Unknown Uncoded 09/21/05 12:32 Home Medications Medication Instructions Recorded Confirmed Type No Known Home Medications 07/18/24 07/18/24 History Past Med/Surg History Problem List COPD (chronic obstructive pulmonary disease) Macrocytic anemia Transaminitis Coagulopathy Rhabdomyolysis Hypotension Troponin I above reference range Bedbug bite Alcohol abuse Anemia Syncope (Acute) Medical History Alcohol dependence Social History Smoking Status: Current every day smoker Tobacco Type: Cigarettes Preferred Language: French Feels Safe at Home: Yes Physical Exam Physical Exam: General: A&Ox3. NAD. Cooperative. Appears ill but nontoxic. +Pallor HEENT: Atraumatic, normocephalic. Vision and hearing grossly intact Pulm: Diminished, clear. No increase in work of breathing. No respiratory distress. Cardiac: Regular, tachycardic. Radial pulses intact and symmetrical. Abdominal: Nontender, nondistended, soft. BS present. Extremities: No edema Results & Data Results & Data Vital Signs (Past 12 Hours) Vital Signs Temp Pulse Pulse Resp BP BP Pulse Ox 07/18/24 12:32 97 H 07/18/24 12:30 113 H 24 121/57 L 99 07/18/24 11:50 37.4 C 101 H 26 H 134/7 L 100 O2 Del Method 07/18/24 12:32 07/18/24 12:30 Room Air 07/18/24 11:50 Room Air PG Care Time/CCT Total # of Minutes Spent Total Time Spent with Patient: Total time spent is greater than 50% in coordination of care (as documented) at patient's floor/unit and/or counseling patient: Coding Level of Care Code 45112 INT INP/OBS CARE MIN Diagnoses Anemia D64.9 Alcohol abuse F10.10 Bedbug bite W57.XXXA Troponin I above reference range R79.89 Rhabdomyolysis M62.82 COPD (chronic obstructive pulmonary disease) J44.9
--- NOTE | 2024-07-18 14:02 | Critical Care Consultation ---
Date of Consultation July 18, 2024 Assessment & Plan (1) Alcohol abuse: (2) Hypotension: (3) Troponin I above reference range: (4) Syncope: (5) Rhabdomyolysis: (6) Coagulopathy: (7) Transaminitis: (8) Macrocytic anemia: Plan Reason Critically Ill: 64-year-old male past medical history of alcoholism presented to the hospital being found down, also had syncopal episode when the EMS arrived. Transferred to the ICU for further management Neuro - [facility] ICU: Negative --History of alcoholism with alcohol withdrawal Continue with CIWA protocol with IV lorazepam Will consider phenobarbital IV. Precedex if patient gets really agitated Cardiac - -- Elevated troponin Likely type II [place] Continue to trend EKG 07/18/2024 11:38 AM: Sinus rhythm, low voltage QRS, no ST-T wave changes appreciated Respiratory - -- COPD with emphysema Not on any inhalers at home Chest x-ray does not show any pulmonary abnormality Will start the patient on nebulized treatment while in the hospital On discharge he could be given Spiriva or Stiolto to be used on a daily basis GI - -- Mild transaminitis Mild elevation of AST with elevated CPK Likely rhabdo Continue to monitor RENAL/LYTES - --Rhabdomyolysis Likely from laying on the floor for a while -- HAGMA Delta-delta: 1.6, as needed gap metabolic acidosis Likely sec to lactic acidosis Follow up serum osm, urine osm, urine lytes Follow up ABG Monitor Monitor BUNs/creatinine Avoid nephrotoxic medication ENDO - --ICU hypoglycemia protocol HEME - -- Acute blood loss anemia Hemoglobin 5.1 Will get 2 units of PRBC Keep normal globin greater than 7 --Coagulopathy Likely from alcoholism Monitor ID - -- No clear source of infection right now Follow-up CT chest abdomen pelvis Follow-up UA Continue with empiric antibiotics for the time being given elevated procalcitonin of 1.19 --Prophylaxis VTE: IPC GI: Pantoprazole Lines: Peripheral Diet: N.p.o. Plan: Strict in and out I will get pathology to review the peripheral smear Will also get anaplasmosis as well as babesiosis profile Start patient on Brovana and budesonide nebulized for underlying COPD with emphysema I have personally spent 56 minutes of critical care time in the direct management of this patient. This is a life/limb threatening event. This includes time spent evaluating patient, direct bedside care, chart review, placing orders, interpretation of diagnostic studies, discussion with consultants, patient, and family members, as well as other required patient management activities. This time is exclusive of all separately billable procedures, and teaching time and separate from and in addition to any other critical care service time. History of Present Illness History of Present Illness 64-year-old male was brought to the ER by EMS as he was found down Past medical history: Alcoholism Patient had a syncopal episode with change in position when the EMS arrived and lifted him up. Heart rate went up to 160-170s ICU was consulted because of anemia as well as probability of patient going into DTs At the time of examination patient was somnolent and lethargic He is a poor historian He is unkempt. Denies any abdominal pain,No nausea or vomiting No dysuria, no diarrhea. Questionable history of bright red blood in stool Denies any shortness of breath, no chest pain No dizziness while in the hospital Social history: Drinks alcohol on a regular basis, Every day smoker, greater than [id number] smoking history Allergies Allergy/AdvReac Type Severity Reaction Status Date / Time [id number] Allergy Unknown Uncoded 09/21/05 12:32 Home Medications Medication Instructions Recorded Confirmed Type No Known Home Medications 07/18/24 07/18/24 History Patient History Medical History Alcohol dependence Social History Smoking Status: Current every day smoker Tobacco Type: Cigarettes Cigarettes Per Day: 20; Do You Dip or Chew Tobacco: No; Tobacco Cessation Education Requested by Patient: Yes Hx Alcohol Use: Yes Alcohol type: hard liquor Hx Substance Use: No (unknown) Preferred Language: [place] Beliefs That Will Affect Care: None Current Living Situation: Other Current Living Situation Comment: pt states lives in home with roommate provided by [employer] Other Information That Helps Us Care for You: No Feels Safe at Home: Yes Safety Concerns: Feels Safe At This Time Assistive Devices: None Review of Systems 2 Review of Systems: All systems reviewed & are unremarkable except as noted in HPI & below Physical Exam 2 Physical Exam: Constitutional: No acute distress, unkempt, frail-appearing HEENT: EOMI, PERRLA Respiratory system: Decreased air entry laterally, no wheeze, no rhonchi, no crackles CVS: S1-S2 positive, no murmurs or gallops, tachycardia Abdomen: Soft, nontender, nondistended, positive bowel sounds x4 Extremities: +2 pulses bilaterally radialis/ dorsalis pedis, no cyanosis, no edema Neuro: Awake alert oriented self and place Psych: Normal mood and affect G/U: No Sheth Skin: no rashes, warm and dry Lymphatic: no cervical or axillary lymphadenopathy Results & Data Results & Data Vital Signs (Past 12 Hours) Vital Signs Temp Pulse Pulse Resp BP BP Pulse Ox 07/18/24 12:32 97 H 07/18/24 12:30 113 H 24 121/57 L 99 07/18/24 11:50 37.4 C 101 H 26 H 134/7 L 100 O2 Del Method 07/18/24 12:32 07/18/24 12:30 Room Air 07/18/24 11:50 Room Air Laboratory Results 07/18/24 11:45 07/18/24 11:45 Coding Level of Care Code 49125 CRITICAL CARE 1ST 30-74M Diagnoses Alcohol abuse F10.10 Hypotension I95.9 Troponin I above reference range R79.89 Syncope R55 Rhabdomyolysis M62.82 Coagulopathy D68.9 Transaminitis R74.01 Macrocytic anemia D53.9
[2024-07-18] MEDS: OPTIRAY 320 100ml IV ONE (14:23)
[2024-07-18] MEDS: cefTRIAXone SODIUM 2,000 MG/50 ML BAG IV STA (14:35)
[2024-07-18] MEDS: LORazepam 1 MG/1 ML SYR ED Inj Use IV STA (14:35)
--- NOTE | 2024-07-18 14:46 | CT Scan Report ---
CT SCAN OF THE BRAIN WITHOUT IV CONTRAST CLINICAL HISTORY: Fall. Change in mental status. COMPARISON STUDY: No priors. TECHNIQUE: Unenhanced axial CT scan of the brain is performed from the vertex to the skull base. A do se lowering technique was utilized adhering to the principles of ALARA. FINDINGS: Brain parenchyma: There is age-related involutional change noting mild subcortical and periventricula r microangiopathic disease. There is no hemorrhage, mass effect, or evidence of acute territorial isc hemia by CT criteria. Faith-white matter differentiation is preserved. No extra-axial fluid collection is seen. Ventricles, sulci, cisterns: Prominent secondary to involutional change. Intracranial vasculature: There is atherosclerotic calcification of the cavernous carotid arteries. Calvarium: Unremarkable. Sinuses and mastoids: The visualized paranasal sinuses are clear. The mastoid air cells are well pneu matized. Orbits: The bony orbits are grossly intact. IMPRESSION: No acute intracranial abnormality. ACT 112: Negative or not required by law. Electronically signed by: Vincent Meza M.D. 07/18/2024 2:45 PM
--- NOTE | 2024-07-18 14:59 | CT Scan Report ---
CT angio chest PE protocol CLINICAL HISTORY: hypoxia, tachy, r/o PE TECHNIQUE: Multidetector row helical CT of the chest was performed with angiographic protocol. Wilson l and sagittal reformations were obtained. Coronal and sagittal MIPS were obtained from the axial cirilo a set and were submitted for review. Automated dose lowering techniques and/or adjustment according to patient size were utilized for this exam. Comparison: Comparison is made to chest radiograph 07/08/2024 FINDINGS: Lungs and pleura: Diffuse centrilobular emphysema is seen most prominent in the upper lobes. Mild bro nchial wall thickening is seen. Heart and pericardium: The pulmonary hypertrophy of the interatrial septum is seen. Vessels: No evidence of pulmonary embolism. Mediastinum and matthieu: Thickening of the distal esophagus is seen. Chest wall and lower neck: Unremarkable. Abdomen: For findings below the diaphragm, please refer to CT of the abdomen dated the same. Bones: Degenerative changes in the thoracic spine. IMPRESSION: 1. No acute abnormality and in particular no evidence of pulmonary embolus. 2. Bronchial wall thickening may represent infectious/inflammatory airways disease. 3. Distal esophageal thickening, clinical correlation for esophagitis is recommended. ACT 112: Negative or not required by law. Electronically signed by: Corey Jiménez M.D. 07/18/2024 2:58 PM
--- NOTE | 2024-07-18 15:03 | CT Scan Report ---
CT abd pelvis IV con only CLINICAL HISTORY: anemia, syncope, tachy TECHNIQUE: Helical axial images of the abdomen and pelvis were obtained and displayed. Automated dose lowering techniques and/or adjustment according to patient size were utilized for this exam. This e xam was performed with intravenous contrast. CT DOSE: 2091.24 mGy.cm COMPARISON: None available at the time of this dictation. FINDINGS: Lower chest: For findings above the diaphragm, please see CT chest performed same day. Liver: Hepatic steatosis is noted. Gallbladder and biliary tree: No calcified gallstones. Normal caliber wall. No intra- or extrahepatic biliary ductal dilation. Pancreas: Unremarkable, no focal lesions. Spleen: Unremarkable. Adrenals: Unremarkable. Kidneys and ureters: Renal cysts are seen. Bladder: Unremarkable. Reproductive organs: Unremarkable. Bowel: Diverticulosis is seen without evidence of diverticulitis. A small hiatal hernia is seen. Lymph nodes Retroperitoneal: Unremarkable. Pelvic: Unremarkable. Mesenteric: Unremarkable. Peritoneum: Normal. Vessels: Atherosclerotic calcifications are seen. Infrarenal aortic aneurysm measures up to 30 mm. Abdominal wall: Unremarkable. Bones: Unremarkable. IMPRESSION: 1. No acute abnormalities and in particular no evidence of acute fracture. 2. Hepatic steatosis. 3. Diverticulosis is seen without diverticulitis. ACT 112: Negative or not required by law. Electronically signed by: Corey Jiménez M.D. 07/18/2024 3:01 PM
--- NOTE | 2024-07-18 15:04 | CT Scan Report ---
CERVICAL SPINE CT CT DOSE: HISTORY: fall TECHNIQUE: Multiaxial CT images of the cervical spine were performed and reformatted in the sagittal and coronal plane without the use of contrast. A dose lowering technique was utilized adhering to th e principles of ALARA. COMPARISON: None. FINDINGS: No fractures. No subluxation. Prevertebral soft tissues and the C1-C2 interval are intact. No pneumothorax. IMPRESSION: No fractures within the cervical spine. ACT 112: Negative or not required by law. Electronically signed by: Mateus Taveras M.D. 07/18/2024 3:03 PM
[2024-07-18] MEDS: FOLIC ACID 1 MG in SYRINGE 9.8 ML IV SCH (15:23)
[2024-07-18 15:25] LABS: Hematocrit (blood only) 13.6 % (42.0-52.0); Hemoglobin 4.1 g/dl (14.0-18.0)
--- NOTE | 2024-07-18 15:29 | Electrocardiogram Report ---
Test Reason : Blood Pressure : */* mmHG Vent. Rate : 97 BPM Atrial Rate : 97 BPM P-R Int : 146 ms QRS Dur : 80 ms QT Int : 346 ms P-R-T Axes : * -3 59 degrees QTcB Int : 439 ms Poor data quality, interpretation may be adversely affected Normal sinus rhythm Low voltage QRS Limb lead Nonspecific ST abnormality Anterolateral leads Abnormal ECG No previous ECGs available Confirmed by Kendall James ([id number]) on 07/18/2024 3:29:00 PM Referred By: REFERRED SELF Confirmed By: Kendall James
[2024-07-18 15:50] LABS: Acetaminophen < 3 ug/ml (10-30); Salicylate < 3.0 mg/dl (3.0-30); Troponin I High Sensitivity 43.4 pg/ml (0-20)
[2024-07-18 15:53] LABS: Thyroid Stimulating Hormone 1.539 uIu/ml (0.300-4.500)
[2024-07-18] MEDS: POTASSIUM CHLORIDE / WTR 10 MEQ/100 ML PLCT IV SCH (16:46)
[2024-07-18] MEDS: ICU Protocol for HYPERglycemia SCH (16:46)
[2024-07-18] MEDS: PLASMA-LYTE A 1,000 ML IV SCH (16:46)
[2024-07-18 17:08] LABS: Base Excess ABG -1.6 mEq/L (-9-1.8); HCO3 ABG 22 mmol/L (19-24); Oxygen Saturation ABG 99.1 % (90-95); PCO2 ABG 32 mmHg (35-46); PO2 ABG 155 mmHg (80-95); pH ABG 7.44 (7.35-7.45)
[2024-07-18 17:09] LABS: Allen Test Pos (Pos)
[2024-07-18] MEDS: PHYTONADIONE 5 MG in DEXTROSE 5% 50 ML IV STA (17:22)
[2024-07-18] MEDS: BUDESONIDE 0.25 MG/2 ML VIAL (PULMICORT) NEB SCH (20:14)
[2024-07-18] MEDS: FORMOTEROL 20 MCG/2 ML VIAL INH SCH (20:14)
[2024-07-18 21:15] LABS: Appearance Urine Clear (Clear); Bacteria Urine Automated None Seen (None Seen); Bilirubin Urine Negative (Negative); Blood Urine Negative (Negative); Color Urine Dark Yellow; Epithelial Cell Urine Auto 0-2 /hpf (0-2); Glucose Urine UA Negative (Negative); Hyaline Casts Urine Present /lpf (None Presnt); Ketones Urine 1+ (Negative); Leukocyte Esterase Urine Negative (Negative); Nitrite Urine Negative (Negative); Protein Urine 1+ (Negative); RBC Urine Automated 0-2 /hpf (0-2); Specific Gravity Urine > 1.045 (1.000-1.030); Urobilinogen Urine Negative (Negative); WBC Urine Automated 0-5 /hpf (0-5)
[2024-07-18 21:43] LABS: Creatinine Urine Random 97.1 mg/dl; Potassium Random Urine 35.2 mmol/L
[2024-07-18 21:44] LABS: Amphetamines+Metham, Urine Neg (Neg); Barbiturates, Urine Neg (Neg); Benzodiazepine, Urine Neg (Neg); Cocaine, Urine Neg (Neg); Fentanyl, Urine Neg (Neg); MDMA (Ecstacy), Urine Neg (Neg); Marijuana, Urine Neg (Neg); Methadone, Urine Neg (Neg); Opiate, Urine Neg (Neg); Phencyclidine, Urine Neg (Neg)
[2024-07-18 21:48] LABS: Hematocrit (blood only) 21.5 % (42.0-52.0)
[2024-07-19 04:59] LABS: Hematocrit (blood only) 27.4 % (42.0-52.0); Hemoglobin 9.2 g/dl (14.0-18.0); Mean Corpuscular Hemoglobin 30.7 pg (25.0-34.0); Mean Corpuscular Hgb Conc 33.6 g/dL (32.0-36.0); Mean Corpuscular Volume 91.3 fL (80.0-100.0); Mean Platelet Volume 10.1 fL (9.4-12.4); Nucleated RBC # (auto) 0.42 K/uL (0.00-0.12); Nucleated RBC % (auto) 5.6 %; Platelet Count 211 K/uL (130-400); RDW Coefficient of Variation 19.1 % (11.5-14.5); White Blood Count 7.46 K/ul (4.8-10.8)
[2024-07-19 05:23] LABS: Albumin Globulin Ratio 1.5 (0.9-2); Albumin Level 2.8 gm/dl (3.4-5.0); BUN Creatinine Ratio 60.7 (10-20); Bilirubin,Total 0.6 mg/dl (0.2-1.0); Creatinine Clr Calc Pharmacy 108.1 ml/min; Est GFR (African American) 128.5 ml/min; Est GFR (Non-African American) 110.9 ml/min; Globulin 1.9 gm/dl (2.5-4.0); Phosphorus 1.1 mg/dl (2.5-4.9); Potassium 3.1 mmol/L (3.5-5.1); Total Protein 4.7 gm/dl (6.0-8.3)
[2024-07-19 05:39] LABS: A calco-baum cmplx NotReported Not Detected (NotDetected); Bact fragilis Not Reported Not Detected (NotDetected); Blood Culture Id Panel See PCR Comment (NotDetected); C auris Not Reported Not Detected (NotDetected); Calbicans Not Reported Not Detected (NotDetected); Candida glabrata Not Reported Not Detected (NotDetected); Candida krusei Not Reported Not Detected (NotDetected); Cneoformans/gatti Not Reported Not Detected (NotDetected); Cparapsilosis Not Reported Not Detected (NotDetected); E cloacae compx Not Reported Not Detected (NotDetected); Efaecalis Not Reported Not Detected (NotDetected); Efaecium Not Reported Not Detected (NotDetected); Enterobacterales Not Reported Not Detected (NotDetected); Escherichia coli Not Reported Not Detected (NotDetected); H influenzae Not Reported Not Detected (NotDetected); K aerogenes Not Reported Not Detected (NotDetected); Koxytoca Not Reported Not Detected (NotDetected); Kpneumoniae grp Not Reported Not Detected (NotDetected); Lmonocyt Not Reported Not Detected (NotDetected); N meningitidis Not Reported Not Detected (NotDetected); P aeruginosa Not Reported Not Detected (NotDetected); Proteus spp Not Reported Not Detected (NotDetected); Salmonella spp Not Reported Not Detected (NotDetected); Staph lugdunensis Not Reported Not Detected (NotDetected); Staph spp. Not Reported DETECTED (NotDetected); Staphaureus Not Reported Not Detected (NotDetected); Staphepi Not Reported DETECTED (NotDetected); Stenmaltophilia Not Reported Not Detected (NotDetected); Strep agal(GrpB) Not Reported Not Detected (NotDetected); Strep pneum Not Reported Not Detected (NotDetected); Strep pyog (GrpA) Not Reported Not Detected (NotDetected); Strep spp Not Reported Not Detected (NotDetected)
[2024-07-19 05:41] LABS: Basophils # (auto) 0.01 K/uL (0.00-0.20); Basophils % (auto) 0.1 %; Eosinophils # (auto) 0.03 K/uL (0.00-0.50); Eosinophils % (auto) 0.4 %; Immature Granulocytes % (auto) 1.3 %; Lymphocytes # (auto) 1.46 K/uL (1.20-3.40); Lymphocytes % (auto) 19.6 %; Monocytes # (auto) 0.85 K/uL (0.11-0.59); Monocytes % (auto) 11.4 %; Neutrophils # (auto) 5.01 K/uL (1.40-6.50); Neutrophils % (auto) 67.2 %; Ovalocytes 1+; Polychromasia 2+
[2024-07-19] MEDS ORDERED: POTASSIUM PHOS 3 MMOL/1 ML INFUSION IV STA ×2 (05:43→14:33)
[2024-07-19 05:59] LABS: mecAC Resistant Gene DETECTED (NotDetected)
[2024-07-19 06:00] LABS: Staphylococcus epidermidis DETECTED (NotDetected); Staphylococcus spp. DETECTED (NotDetected)
[2024-07-19] MEDS: POTASSIUM PHOSPHATE 18 MMOL in SODIUM CHLORIDE 0.9% 500 ML IV ONE (06:40)
[2024-07-19] MEDS: MAGNESIUM SULFATE / D5W 1 GM/100 ML BAG IV SCH (07:49)
[2024-07-19] MEDS: DOXYCYCLINE HYCLATE 100 MG in DEXTROSE 5% MINI-B 100 ML IV SCH (07:50)
[2024-07-19] MEDS: THIAMINE HCL 100 MG in SYRINGE 9 ML IV SCH (07:50)
--- NOTE | 2024-07-19 08:52 | XCELERA ---
[id number] [id number]
--- NOTE | 2024-07-19 09:32 | Critical Care Progress Note ---
Date of Service July 19, 2024 Assessment & Plan (1) Alcohol abuse: (2) Hypotension: (3) Troponin I above reference range: (4) Syncope: (5) Rhabdomyolysis: (6) Coagulopathy: (7) Transaminitis: (8) Macrocytic anemia: Plan Reason Critically Ill: 64-year-old male past medical history of alcoholism presented to the hospital being found down, also had syncopal episode when the EMS arrived. Transferred to the ICU for further management Neuro - [facility] ICU: Negative --History of alcoholism with alcohol withdrawal Continue with CIWA protocol with IV lorazepam Precedex if patient gets really agitated Toxicology screen negative for everything Cardiac - -- Elevated troponin Likely type II [place] Continue to trend EKG 07/18/2024 11:38 AM: Sinus rhythm, low voltage QRS, no ST-T wave changes appreciated Respiratory - -- COPD with emphysema Not on any inhalers at home Chest x-ray does not show any pulmonary abnormality Will start the patient on nebulized treatment while in the hospital On discharge he could be given Spiriva or Stiolto to be used on a daily basis GI - -- Mild transaminitis Mild elevation of AST with elevated CPK Likely rhabdo Continue to monitor RENAL/LYTES - --Rhabdomyolysis Likely from laying on the floor for a while CPK trending down -- HAGMA --> improving Delta-delta: 1.6, as needed gap metabolic acidosis Likely sec to lactic acidosis Follow up serum osm, urine osm, urine lytes Follow up ABG Monitor Monitor BUNs/creatinine Avoid nephrotoxic medication ENDO - --ICU hypoglycemia protocol HEME - -- Acute blood loss anemia Hemoglobin 5.1 Will get 4 units of PRBC Keep normal globin greater than 7 Peripheral smear was negative for schistocytes, no intracellular bodies ruling out babesiosis as well as anaplasmosis --Coagulopathy Likely from alcoholism Monitor ID - -- Blood culture growing staph epi, MRSA Unsure if it is a contaminant Nasal MRSA negative CT abdomen pelvis does not show any clear signs of infection UA clean Continue with empiric antibiotics for the time being given elevated procalcitonin of 1.19 --Prophylaxis VTE: IPC GI: Pantoprazole Lines: Peripheral Diet: Clear liquid, advance as tolerated Plan: In/out: +3.4 L, urine output 709 Phosphorus, potassium as well as magnesium being replaced Repeat H&H around 12 Peripheral smear was negative. Possibility of patient having lice infestation along with bedbugs. Treatment as per protocol Blood culture is growing staph epi MRSA. Could be contaminant. Hemodynamically stable to be downgrade to the floor. Please note the above document was generated using voice recognition software. It may contain grammatical, syntax or spelling errors.Any formal questions or concerns about the content, text or information contained within the body of this dictation should be directly addressed to the provider for clarification. Admission and Anticipated Discharge Date Admission Date: July 18, 2024 Subjective Patient seen and examined at bedside. No acute distress, no adverse events overnight. Denied any headache, no nausea, no vomiting No abdominal pain He said he is feeling much better since coming to the hospital. Review of Systems Review of Systems: All systems reviewed & are unremarkable except as noted in Subjective Physical Exam Physical Exam: Constitutional: No acute distress, unkempt, frail-appearing HEENT: EOMI, PERRLA Respiratory system: Decreased air entry laterally, no wheeze, no rhonchi, no crackles CVS: S1-S2 positive, no murmurs or gallops Abdomen: Soft, nontender, nondistended, positive bowel sounds x4 Extremities: +2 pulses bilaterally radialis/ dorsalis pedis, no cyanosis, no edema Neuro: Awake alert oriented self and place Psych: Normal mood and affect G/U: No Sheth Skin: no rashes, warm and dry Lymphatic: no cervical or axillary lymphadenopathy Results & Data Results & Data Vital Signs (Past 12 Hours) Vital Signs Temp Pulse Resp BP Pulse Ox O2 Del Method 07/19/24 08:45 Room Air 07/19/24 08:31 36.6 C 07/19/24 08:09 99 H 24 99 07/19/24 08:00 145/77 H 07/19/24 08:00 69 07/19/24 07:57 72 24 100 07/19/24 07:30 83 07/19/24 07:30 136/87 07/19/24 07:00 73 25 H 100 07/19/24 07:00 140/74 07/19/24 06:30 145/84 H 07/19/24 06:27 67 23 100 Room Air 07/19/24 06:24 59 L 21 100 07/19/24 06:00 76 22 151/87 H 97 Room Air 07/19/24 05:00 76 20 141/70 H 99 Room Air 07/19/24 04:00 36.4 C 64 22 144/68 H 98 Room Air 07/19/24 03:00 94 H 22 147/78 H 100 Room Air 07/19/24 02:00 78 22 142/75 H 98 Room Air 07/19/24 01:00 75 20 134/78 99 Room Air 07/19/24 00:25 37.1 C 66 20 115/61 100 07/19/24 00:14 37.2 C 73 20 134/62 100 07/19/24 00:00 37.2 C 66 20 125/76 99 Room Air 07/18/24 23:14 36.8 C 75 20 118/69 97 07/18/24 23:00 72 22 119/69 98 Room Air 07/18/24 23:00 83 07/18/24 23:00 36.8 C 70 20 119/69 98 Room Air 07/18/24 22:45 115/59 L 07/18/24 22:44 78 22 115/59 L 98 07/18/24 22:30 80 121/68 07/18/24 22:29 36.8 C 78 22 121/68 99 07/18/24 22:13 36.6 C 75 20 126/61 99 07/18/24 22:00 79 22 112/59 L 98 Room Air 07/18/24 21:30 73 112/59 L Coding Level of Care Code 57143 SUB INP/OBS CARE 3/50MIN Diagnoses Alcohol abuse F10.10 Hypotension I95.9 Troponin I above reference range R79.89 Syncope R55 Syncope type: unspecified Rhabdomyolysis T79.6XXA Encounter type: initial encounter Rhabdomyolysis type: traumatic Coagulopathy D68.9 Transaminitis R74.01 Macrocytic anemia D53.9 (4) Syncope Syncope type: unspecified Qualified Code(s): R55 - Syncope and collapse (5) Rhabdomyolysis Encounter type: initial encounter Rhabdomyolysis type: traumatic Qualified Code(s): T79.6XXA - Traumatic ischemia of muscle, initial encounter
[2024-07-19] MEDS: PANTOprazole 40 MG in SYRINGE 0 ML IV SCH (09:41)
[2024-07-19] MEDS: PERMETHRIN 59 ML LIQUID BTL TOP ONE (09:41)
[2024-07-19 13:20] LABS: Hematocrit (blood only) 24.7 % (42.0-52.0); Hemoglobin 8.3 g/dl (14.0-18.0)
[2024-07-19 13:40] LABS: Calcium 7.1 mg/dl (8.6-10.3); Creatinine Clr Calc Pharmacy 134.5 ml/min; Est GFR (African American) 139.3 ml/min; Est GFR (Non-African American) 120.2 ml/min; Phosphorus 2.2 mg/dl (2.5-4.9); Potassium 3.1 mmol/L (3.5-5.1)
[2024-07-19] MEDS ORDERED: VANCOMYCIN CONSULT ACTIVE PRN (13:46)
--- NOTE | 2024-07-19 14:21 | Pharmacy Report ---
Pharmacy PK ABX Note - Date of Service July 19, 2024 - Assessment and Plan Assessment 64 year old M receiving Vancomycin for treatment of bacteremia. Pertinent microbiologic data includes: blood culture growing gram positive cocci, + Staphylococcus sp PCR, + mecA/C-Methicil Resistant gene, and + Staph epidermic PCR. Day # 1 of antimicrobial therapy. Plan Vancomycin * Loading dose: 1500 mg IV x 1 * Maintenance dose: 1000 mg IV every 8 hours * Regimen is predicted to achieve target AUC/KELLEN of 400-600 mg/L.hr * Random level ordered for: 07/20/24 @0330 Pharmacy will continue to follow and will adjust dose/frequency as necessary. Thank you. Pharmacy has transitioned to AUC monitoring for vancomycin. AUC/KELLEN is the preferred PK/PD target and is associated with decreased risk of nephrotoxicity compared to traditional trough targets.
[2024-07-19] MEDS ORDERED: cefTRIAXone SODIUM 1,000 MG/50 ML BAG IV SCH (14:30)
[2024-07-19] MEDS: VANCOMYCIN HCL 1,500 MG in SODIUM CHLORIDE 0.9% 500 ML IV ONE (15:07)
[2024-07-19] MEDS: POTASSIUM PHOSPHATE 21 MMOL in SODIUM CHLORIDE 0.9% 500 ML IV ONE (15:07)
--- NOTE | 2024-07-19 15:28 | Hospitalist Progress Note ---
Date of Service July 19, 2024 Assessment & Plan (1) Anemia: Plan: No overt GI blood loss seen. He is iron deficient and parenteral iron replacement will commence. He received 2 units of packed red blood cells for hemoglobin of 5.1 on admission. Hemoglobin improved to 9.2 and has drifted down now to 8.3 today. Will follow. (2) Alcohol abuse: Plan: He apparently consumes 1/5 of hard liquor daily. PETERSON S protocol has been ordered. As needed IV Ativan. Continue folate and thiamine supplementation. (3) Bacteremia: Plan: Gram-positive cocci isolated in the blood. He is now on intravenous vancomycin, day 1. Will await final blood culture results and sensitivities. Hopefully this is just a contaminant (4) Bedbug bite: Plan: He has gone through the decontamination progress. Isolation precautions (5) Troponin I above reference range: Plan: This appears to be demand ischemia. No evidence of acute coronary syndrome. No chest pain. No acute EKG changes. (6) Rhabdomyolysis: Plan: Mild on admission. CK is now down to 596. Will follow (7) COPD (chronic obstructive pulmonary disease): Plan: Longstanding history of tobacco use. Stable. Continue inhalers and as needed nebulizer treatments Plan To be determined. CODE STATUS: DNR/DNI Admission and Anticipated Discharge Date Admission Date: July 18, 2024 Subjective The patient is awake and able to converse. He is somewhat lethargic however. He has received 2 units packed red blood cells and hemoglobin improved to 9.2 and has drifted down to 8.3. Iron levels are low and he will receive parenteral Venofer. Potassium and phosphorus replacement continue. Doxycycline has been switched to vancomycin due to positive blood cultures which are showing gram- positive cocci in clusters which could be MRSA. Chest CTA was negative for PE on admission. Abdomen CT scan reveals evidence of hepatic steatosis. CK has decreased to 596. He has been treated for suspected lice and bedbugs Review of Systems 2 Review of Systems: Constitutionalno fever or chills ENTno blurred vision, no double vision, no epistaxis, no sore throat Respiratoryno cough, no wheezing, no shortness of breath Cardiacno palpitations, no chest pain, no syncope Ermias nausea, vomiting, diarrhea, melena, hematochezia GUno urinary retention, no urinary incontinence, no dysuria, no hematuria Musculoskeletalno joint pain, no muscle tenderness Skinno bruising, no rashes, no pruritus Neurono isolated weakness, no paresthesia. Generalized weakness Psychflat affect Physical Exam 2 Physical Exam: General-awake but lethargic. No fever HEENT-head atraumatic and normocephalic, pupils equal and reactive to light, extraocular muscles intact Neck-no lymphadenopathy or thyromegaly, trachea midline Chest-clear to auscultation anteriorly. No rales, wheezing or rhonchi Cardiac-regular rate and rhythm, normal S1 and S2 Abdomen-normal bowel sounds, no hepatosplenomegaly Extremities-no cyanosis, clubbing, or edema Neuro-cranial nerves II through XII intact, motor and sensory function within normal limits, strength symmetrical with generalized weakness, no focal deficits Psych-flat affect Results & Data Results & Data Vital Signs (Past 12 Hours) Vital Signs Temp Pulse Resp BP Pulse Ox O2 Del Method 07/19/24 11:27 74 21 99 07/19/24 11:27 143/83 H 07/19/24 11:12 69 25 H 99 Room Air 07/19/24 10:00 138/82 07/19/24 09:54 87 26 H 100 07/19/24 09:27 63 19 99 07/19/24 08:45 Room Air 07/19/24 08:31 36.6 C 07/19/24 08:09 99 H 24 99 07/19/24 08:00 145/77 H 07/19/24 08:00 69 07/19/24 07:57 72 24 100 07/19/24 07:30 83 07/19/24 07:30 136/87 07/19/24 07:00 73 25 H 100 07/19/24 07:00 140/74 07/19/24 06:30 145/84 H 07/19/24 06:27 67 23 100 Room Air 07/19/24 06:24 59 L 21 100 07/19/24 06:00 76 22 151/87 H 97 Room Air 07/19/24 05:00 76 20 141/70 H 99 Room Air 07/19/24 04:00 36.4 C 64 22 144/68 H 98 Room Air Laboratory Results 07/19/24 13:02 07/19/24 13:02 PG Care Time/CCT Total # of Minutes Spent Total Time Spent with Patient: Total time spent is greater than 50% in coordination of care (as documented) at patient's floor/unit and/or counseling patient: Coding Level of Care Code 48000 SUB INP/OBS CARE 350MIN Diagnoses Anemia D64.9 Alcohol abuse F10.10 Bacteremia R78.81 Bedbug bite W57.XXXA Troponin I above reference range R79.89 Rhabdomyolysis T79.6XXA Encounter type: initial encounter Rhabdomyolysis type: traumatic COPD (chronic obstructive pulmonary disease) J44.9 (6) Rhabdomyolysis Encounter type: initial encounter Rhabdomyolysis type: traumatic Qualified Code(s): T79.6XXA - Traumatic ischemia of muscle, initial encounter
[2024-07-19] MEDS: IRON SUCROSE 200 MG in 0.9 % SODIUM CHLORIDE 100 ML IV ONE (20:33)
[2024-07-19] MEDS: VANCOMYCIN HCL 1,000 MG in SODIUM CHLORIDE 0.9% 250 ML IV SCH (21:13)
[2024-07-20 04:39] LABS: Cdiff Antigen Positive; Cdiff Toxin A+B Negative Cdiff Toxin (Negative); Cdiff Toxin B Gene (2yr or >) Positive Cdiff Gene (Neg)
[2024-07-20 05:01] LABS: Basophils # (auto) 0.04 K/uL (0.00-0.20); Basophils % (auto) 0.5 %; Eosinophils # (auto) 0.18 K/uL (0.00-0.50); Eosinophils % (auto) 2.3 %; Hematocrit (blood only) 27.6 % (42.0-52.0); Hemoglobin 9.5 g/dl (14.0-18.0); Immature Granulocytes # (auto) 0.31 K/uL (0.01-0.20); Immature Granulocytes % (auto) 3.9 %; Lymphocytes # (auto) 1.52 K/uL (1.20-3.40); Mean Corpuscular Hemoglobin 30.9 pg (25.0-34.0); Mean Corpuscular Hgb Conc 34.4 g/dL (32.0-36.0); Mean Corpuscular Volume 89.9 fL (80.0-100.0); Mean Platelet Volume 9.8 fL (9.4-12.4); Monocytes # (auto) 1.19 K/uL (0.11-0.59); Monocytes % (auto) 14.9 %; Neutrophils # (auto) 4.74 K/uL (1.40-6.50); Neutrophils % (auto) 59.4 %; Nucleated RBC # (auto) 0.71 K/uL (0.00-0.12); Nucleated RBC % (auto) 8.9 %; Platelet Count 218 K/uL (130-400); RDW Coefficient of Variation 19.2 % (11.5-14.5); RDW Standard Deviation 61.9 fL (36.4-46.3); Red Blood Count 3.07 M/uL (4.70-6.10); White Blood Count 7.98 K/ul (4.8-10.8)
[2024-07-20 05:24] LABS: Pappenheimer Bodies 1+; Polychromasia 2+
[2024-07-20 05:27] LABS: BUN Creatinine Ratio 25.5 (10-20); Calcium 6.9 mg/dl (8.6-10.3); Creatinine Clr Calc Pharmacy 131.6 ml/min; Est GFR (African American) 138.1 ml/min; Est GFR (Non-African American) 119.1 ml/min; Potassium 2.5 mmol/L (3.5-5.1)
[2024-07-20] MEDS: VANCOMYCIN LEVEL ONE (05:35)
[2024-07-20] MEDS: POTASSIUM CHLORIDE / WTR 10 MEQ/100 ML PLCT IV SCH (05:48)
[2024-07-20] MEDS: LOPERAMIDE HCL 2 MG CAP PO STA (05:49)
[2024-07-20] MEDS: POTASSIUM CHLORIDE CRTAB 20 MEQ TABCR PO STA (05:49)
[2024-07-20 06:00] LABS: Magnesium 1.7 mg/dl (1.7-2.4); Phosphorus 1.2 mg/dl (2.5-4.9)
[2024-07-20] MEDS ORDERED: POTASSIUM PHOS 3 MMOL/1 ML INFUSION IV STA ×2 (06:08→09:15)
[2024-07-20] MEDS: MAGNESIUM SULFATE / D5W 1 GM/100 ML BAG IV ONE (06:46)
[2024-07-20] MEDS: POTASSIUM PHOSPHATE 21 MMOL in SODIUM CHLORIDE 0.9% 500 ML IV ONE (06:48)
[2024-07-20] MEDS: VANCOMYCIN HCL 750 MG in SODIUM CHLORIDE 0.9% 250 ML IV SCH (08:29)
[2024-07-20] MEDS: POTASSIUM CHLORIDE CRTAB 20 MEQ TABCR PO SCH (09:30)
--- NOTE | 2024-07-20 09:43 | Pharmacy Report ---
Pharmacy PK ABX Note - Date of Service July 20, 2024 - Assessment and Plan Assessment 64 year old M receiving Vancomycin for concern of bacteremia vs. contamination of blood culture. Pertinent microbiologic data includes: blood culture growing gram positive cocci (Staphylococcus epidermidis w/ + mecA/C-Methicil Resistant gene per [employer]). Patient is afebrile, hemodynamically stable, w/ no leukocytosis. May be reasonable to d/c vancomycin and monitor clinically given [employer] results w/ no clear source of infection. Discussed with hospitalist and will await final identification of blood culture. Day #2 of antimicrobial therapy. Plan Vancomycin * Current regimen: 1000 mg IV every 8 hours * Random level obtained 07/20/24 resulted as 21.5 mcg/mL. * Change to 750 mg IV every 8 hours * Predicted AUC at steady state: 512 mg/L.hr * Will repeat level in the next 48-72 hours if therapy is continued and/or change in patient clinical status Pharmacy will continue to follow and will adjust dose/frequency as necessary. Thank you. Pharmacy has transitioned to AUC monitoring for vancomycin. AUC/KELLEN is the preferred PK/PD target and is associated with decreased risk of nephrotoxicity compared to traditional trough targets.
[2024-07-20] MEDS: IRON SUCROSE 200 MG in 0.9 % SODIUM CHLORIDE 100 ML IV ONE (10:32)
[2024-07-20] MEDS: D5NSS + 20MEQ KCL 20 MEQ/1,000 ML BAG IV SCH (11:18)
--- NOTE | 2024-07-20 15:46 | Hospitalist Progress Note ---
Date of Service July 20, 2024 Assessment & Plan (1) Anemia: Plan: No overt GI blood loss seen. He is iron deficient and receiving parenteral iron replacement therapy. Currently day 2 of 3. He received 2 units of packed red blood cells for hemoglobin of 5.1 on admission. Hemoglobin has improved. Will follow. (2) Alcohol abuse: Plan: He apparently consumes a fifth of hard liquor daily. AWSS protocol has been ordered. As needed IV Ativan. Continue folate and thiamine supplementation. (3) Bacteremia: Plan: Gram-positive cocci isolated in the blood. Final identification pending. [employer] has indicated that this is Staph epidermidis however. Continue vancomycin, day 2, until blood culture results are finalized. (4) Bedbug bite: Plan: He has gone through the decontamination progress. Isolation precautions (5) Troponin I above reference range: Plan: This appears to be demand ischemia. No evidence of acute coronary syndrome. No chest pain. No acute EKG changes. (6) Rhabdomyolysis: Plan: Mild on admission. CK downtrending. Will follow (7) COPD (chronic obstructive pulmonary disease): Plan: Longstanding history of tobacco use. Stable. Continue inhalers and as needed nebulizer treatments Plan It appears he will need placement at the time of discharge within the next 24 to 48 hours. CODE STATUS: DNR/DNI Admission and Anticipated Discharge Date Admission Date: July 18, 2024 Subjective Alert and oriented. He appears depressed. Blood cultures growing gram-positive cocci which probably are contaminant. Will continue vancomycin until final blood culture results are known. [employer] however seems to indicate that this is Staph epidermidis contaminant. Potassium and phosphorus replacement continue. Venofer, day 2 for iron deficiency anemia. Review of Systems 2 Review of Systems: Constitutionalno fever or chills ENTno blurred vision, no double vision, no epistaxis, no sore throat Respiratoryno cough, no wheezing, no shortness of breath Cardiacno palpitations, no chest pain, no syncope Ermias nausea, vomiting, diarrhea, melena, hematochezia GUno urinary retention, no urinary incontinence, no dysuria, no hematuria Musculoskeletalno joint pain, no muscle tenderness Skinno bruising, no rashes, no pruritus Neurono isolated weakness, no paresthesia. Generalized weakness Psychdepressed affect Physical Exam 2 Physical Exam: General-awake. He appears to be oriented x 3. No fever HEENT-head atraumatic and normocephalic, pupils equal and reactive to light, extraocular muscles intact Neck-no lymphadenopathy or thyromegaly, trachea midline Chest-clear to auscultation anteriorly. No rales, wheezing or rhonchi Cardiac-regular rate and rhythm, normal S1 and S2 Abdomen-normal bowel sounds, no hepatosplenomegaly Extremities-no cyanosis, clubbing, or edema Neuro-cranial nerves II through XII intact, motor and sensory function within normal limits, strength symmetrical with generalized weakness, no focal deficits Psych-depressed affect Results & Data Results & Data Vital Signs (Past 12 Hours) Vital Signs Temp Pulse Pulse Resp BP Pulse Ox O2 Del Method 07/20/24 14:53 80 07/20/24 12:36 36.7 C 87 18 126/74 94 Room Air 07/20/24 08:35 36.7 C 86 18 144/73 H 98 Room Air 07/20/24 07:35 Room Air 07/20/24 07:26 83 Laboratory Results 07/20/24 04:32 07/20/24 04:32 PG Care Time/CCT Total # of Minutes Spent Total Time Spent with Patient: Total time spent is greater than 50% in coordination of care (as documented) at patient's floor/unit and/or counseling patient: Coding Level of Care Code 69630 SUB INP/OBS CARE 3/50MIN Diagnoses Anemia D64.9 Alcohol abuse F10.10 Bacteremia R78.81 Bedbug bite W57.XXXA Troponin I above reference range R79.89 Rhabdomyolysis T79.6XXA Encounter type: initial encounter Rhabdomyolysis type: traumatic COPD (chronic obstructive pulmonary disease) J44.9 (6) Rhabdomyolysis Encounter type: initial encounter Rhabdomyolysis type: traumatic Qualified Code(s): T79.6XXA - Traumatic ischemia of muscle, initial encounter
[2024-07-21 08:30] LABS: Basophils # (auto) 0.02 K/uL (0.00-0.20); Basophils % (auto) 0.3 %; Eosinophils # (auto) 0.18 K/uL (0.00-0.50); Eosinophils % (auto) 2.4 %; Hemoglobin 8.9 g/dl (14.0-18.0); Immature Granulocytes # (auto) 0.17 K/uL (0.01-0.20); Immature Granulocytes % (auto) 2.3 %; Lymphocytes # (auto) 1.96 K/uL (1.20-3.40); Lymphocytes % (auto) 26.4 %; Mean Corpuscular Hemoglobin 30.5 pg (25.0-34.0); Mean Corpuscular Volume 92.5 fL (80.0-100.0); Monocytes # (auto) 1.62 K/uL (0.11-0.59); Monocytes % (auto) 21.8 %; Neutrophils # (auto) 3.48 K/uL (1.40-6.50); Neutrophils % (auto) 46.8 %; Nucleated RBC # (auto) 0.19 K/uL (0.00-0.12); Nucleated RBC % (auto) 2.6 %; Platelet Count 208 K/uL (130-400); RDW Coefficient of Variation 18.9 % (11.5-14.5); RDW Standard Deviation 61.1 fL (36.4-46.3); Red Blood Count 2.92 M/uL (4.70-6.10); White Blood Count 7.43 K/ul (4.8-10.8)
[2024-07-21 08:49] LABS: Anion Gap 3 (3-11); BUN Creatinine Ratio 12.9 (10-20); Blood Urea Nitrogen 4 mg/dl (6-23); Calcium 6.4 mg/dl (8.6-10.3); Carbon Dioxide 28 mmol/L (21-32); Chloride 105 mmol/L (98-107); Creatine Kinase 205 U/L (30-223); Creatinine Clr Calc Pharmacy 198.8 ml/min; Est GFR (African American) > 150.0 ml/min; Est GFR (Non-African American) 141.4 ml/min; Glucose 285 mg/dl (70-99(Fasting)); Magnesium 1.3 mg/dl (1.7-2.4); Phosphorus 1.7 mg/dl (2.5-4.9); Potassium 4.3 mmol/L (3.5-5.1); Sodium 136 mmol/L (136-145)
[2024-07-21 08:50] LABS: Polychromasia 2+
[2024-07-21] MEDS: IRON SUCROSE 200 MG in 0.9 % SODIUM CHLORIDE 100 ML IV ONE (10:14)
[2024-07-21] MEDS: MAGNESIUM SULFATE / D5W 1 GM/100 ML BAG IV SCH (10:16)
[2024-07-21] MEDS: MAGNESIUM OXIDE 400 MG TAB PO SCH (11:11)
--- NOTE | 2024-07-21 15:08 | Hospitalist Progress Note ---
Date of Service July 21, 2024 Assessment & Plan (1) Anemia: Plan: No overt GI blood loss seen. He is iron deficient and receiving parenteral iron replacement therapy. Currently day 3 of 3. Will start oral ferrous sulfate tomorrow, July 22. He received 2 units of packed red blood cells for hemoglobin of 5.1 on admission. Hemoglobin has improved. Will follow. (2) Alcohol abuse: Plan: He apparently consumes a fifth of hard liquor daily. AWSS protocol has been ordered. As needed IV Ativan. Continue folate and thiamine supplementation. (3) Bacteremia: Plan: Gram-positive cocci isolated in the blood. Appears to be contaminant. Vancomycin has been discontinued. (4) Bedbug bite: Plan: He has gone through the decontamination progress. Isolation precautions (5) Troponin I above reference range: Plan: This appears to be demand ischemia. No evidence of acute coronary syndrome. No chest pain. No acute EKG changes. (6) Rhabdomyolysis: Plan: Mild on admission. CK now normalized. Resolved (7) COPD (chronic obstructive pulmonary disease): Plan: Longstanding history of tobacco use. Stable. Continue inhalers and as needed nebulizer treatments Plan Hopeful discharge to [facility] within the next 24 to 48 hours Admission and Anticipated Discharge Date Admission Date: July 18, 2024 Subjective Awake and alert. Positive blood cultures appear to be contaminant. Vancomycin has been discontinued. Today will be day 3 of parenteral iron replacement. Oral potassium supplementation has been decreased. Potassium is now 4.3. Magnesium is low and oral and IV replacement ordered. Phosphorus is improved but still a little on the low side. Review of Systems 2 Review of Systems: Constitutionalno fever or chills ENTno blurred vision, no double vision, no epistaxis, no sore throat Respiratoryno cough, no wheezing, no shortness of breath Cardiacno palpitations, no chest pain, no syncope Ermias nausea, vomiting, diarrhea, melena, hematochezia GUno urinary retention, no urinary incontinence, no dysuria, no hematuria Musculoskeletalno joint pain, no muscle tenderness Skinno bruising, no rashes, no pruritus Neurono isolated weakness, no paresthesia. Generalized weakness Psychdepressed affect Physical Exam 2 Physical Exam: General-awake. He appears to be oriented x 3. No fever HEENT-head atraumatic and normocephalic, pupils equal and reactive to light, extraocular muscles intact Neck-no lymphadenopathy or thyromegaly, trachea midline Chest-clear to auscultation anteriorly. No rales, wheezing or rhonchi Cardiac-regular rate and rhythm, normal S1 and S2 Abdomen-normal bowel sounds, no hepatosplenomegaly Extremities-no cyanosis, clubbing, or edema Neuro-cranial nerves II through XII intact, motor and sensory function within normal limits, strength symmetrical with generalized weakness, no focal deficits Psych-depressed affect Results & Data Results & Data Vital Signs (Past 12 Hours) Vital Signs Temp Pulse Pulse Resp BP Pulse Ox O2 Del Method 07/21/24 15:06 36.8 C 84 15 126/73 94 Room Air 07/21/24 14:02 78 07/21/24 11:14 36.7 C 88 16 122/72 95 Room Air 07/21/24 08:20 36.7 C 86 16 151/84 H 94 Room Air 07/21/24 08:11 Room Air 07/21/24 07:26 88 16 95 Room Air 07/21/24 07:05 87 Laboratory Results 07/21/24 08:08 07/21/24 08:08 PG Care Time/CCT Total # of Minutes Spent Total Time Spent with Patient: Total time spent is greater than 50% in coordination of care (as documented) at patient's floor/unit and/or counseling patient: Coding Level of Care Code 57993 SUB INP/OBS CARE 3/50MIN Diagnoses Anemia D64.9 Alcohol abuse F10.10 Bacteremia R78.81 Bedbug bite W57.XXXA Troponin I above reference range R79.89 Rhabdomyolysis T79.6XXA Encounter type: initial encounter Rhabdomyolysis type: traumatic COPD (chronic obstructive pulmonary disease) J44.9 (6) Rhabdomyolysis Encounter type: initial encounter Rhabdomyolysis type: traumatic Qualified Code(s): T79.6XXA - Traumatic ischemia of muscle, initial encounter
[2024-07-21] MEDS: POTASSIUM CHLORIDE 10 MEQ TABCR PO SCH (22:19)
[2024-07-22 09:31] LABS: Basophils # (auto) 0.03 K/uL (0.00-0.20); Basophils % (auto) 0.4 %; Eosinophils # (auto) 0.12 K/uL (0.00-0.50); Eosinophils % (auto) 1.4 %; Hematocrit (blood only) 32.5 % (42.0-52.0); Hemoglobin 10.5 g/dl (14.0-18.0); Immature Granulocytes # (auto) 0.15 K/uL (0.01-0.20); Immature Granulocytes % (auto) 1.8 %; Lymphocytes # (auto) 1.51 K/uL (1.20-3.40); Lymphocytes % (auto) 18.1 %; Mean Corpuscular Hemoglobin 30.4 pg (25.0-34.0); Mean Corpuscular Hgb Conc 32.3 g/dL (32.0-36.0); Mean Corpuscular Volume 94.2 fL (80.0-100.0); Mean Platelet Volume 10.6 fL (9.4-12.4); Monocytes # (auto) 2.08 K/uL (0.11-0.59); Monocytes % (auto) 24.9 %; Neutrophils # (auto) 4.45 K/uL (1.40-6.50); Neutrophils % (auto) 53.4 %; Nucleated RBC # (auto) 0.09 K/uL (0.00-0.12); Nucleated RBC % (auto) 1.1 %; Platelet Count 235 K/uL (130-400); RDW Coefficient of Variation 19.3 % (11.5-14.5); RDW Standard Deviation 62.7 fL (36.4-46.3); Red Blood Count 3.45 M/uL (4.70-6.10); White Blood Count 8.34 K/ul (4.8-10.8)
[2024-07-22 09:49] LABS: Anion Gap 7 (3-11); Calcium 7.6 mg/dl (8.6-10.3); Carbon Dioxide 25 mmol/L (21-32); Chloride 100 mmol/L (98-107); Magnesium 1.8 mg/dl (1.7-2.4); Potassium 3.9 mmol/L (3.5-5.1); Sodium 132 mmol/L (136-145)
[2024-07-22 09:55] LABS: BUN Creatinine Ratio 16.1 (10-20); Blood Urea Nitrogen 5 mg/dl (6-23); Creatinine Clr Calc Pharmacy 199.2 ml/min; Est GFR (African American) > 150.0 ml/min; Est GFR (Non-African American) 141.4 ml/min; Glucose 90 mg/dl (70-99(Fasting)); Phosphorus 2.3 mg/dl (2.5-4.9)
[2024-07-22] MEDS: FERROUS SULFATE 325 MG TAB PO SCH (10:09)
--- NOTE | 2024-07-22 12:39 | Discharge Summary ---
Discharge Summary Date of Service July 22, 2024 Principal Dx & Hospital Course #1 = Principal Diagnosis (1) Anemia: No overt GI blood loss seen. He is iron deficient and received 3 days of parenteral iron replacement therapy. He is now on oral iron replacement. He received 2 units of packed red blood cells for hemoglobin of 5.1 on admission. Hemoglobin has improved. Will follow. (2) Alcohol abuse: He apparently consumes a fifth of hard liquor daily. He was treated with the AWSS protocol while hospitalized. Alcohol cessation has been recommended. (3) Bacteremia: Gram-positive cocci isolated in the blood. This appears to be Staph epidermidis contaminant. Vancomycin has been discontinued. (4) Bedbug bite: He has gone through the decontamination progress. Isolation precautions while hospitalized (5) Troponin I above reference range: This appears to be demand ischemia. No evidence of acute coronary syndrome. No chest pain. No acute EKG changes. (6) Rhabdomyolysis: Mild on admission. CK now normalized. Resolved (7) COPD (chronic obstructive pulmonary disease): Longstanding history of tobacco use. Stable. Continue inhalers and as needed nebulizer treatments Plan Home today, July 22. He will follow-up with a physician in the residents clinic Admission HPI Per Admitting Provider Mich Castellano is a 64-year-old male patient with a past medical history of alcoholism who was found down in his home by his housemate. Per patient patient felt normal last night, but rolled out of bed last night and fell from bed and could not get back up. EMS at the scene helped patient attempted get into bed but was diaphoretic and with an episode of syncope, heart rate in the [id number]. Was brought to the hospital for emergent evaluation. On ER evaluation no leukocytosis, acute anemia with hemoglobin 5.1 macrocytic MCV 105. VBG 7 point 02/27/39/15 Hypokalemic 3.0, creatinine is at its baseline of 1.0 Lactate markedly elevated at 11 CK elevated at 1078 High sensitive troponin 58.7 Procalcitonin elevated 1.19 [employer] pending INR 1.2 EKG: Normal sinus rhythm, nonspecific changes? Anterior lateral ischemia Mich is seen at the bedside. He reports he moved to [place] after he was previously homeless. Has been drinking 1/5 of liquor per day for "as long as I can remember". Reports he ran out of money to buy alcohol and stopped drinking over the weekend, last drink was Thursday evening. He reports he has felt progressively fatigued and shaky. Rolled out of bed last night and felt too weak to get back up. EMS was called, initially was refusing evaluation however had an episode of diaphoresis syncope and tachycardia and ultimately agreed and was brought to the hospital for evaluation. He reports he has had a productive cough in the last couple of days. He has a history of tobacco use at least a pack per day, and he thinks COPD but has not been on any inhaler since he was able to see a [facility] physician many years ago. He thinks he was on Spiriva in the past. Denies other history of medical problems. He denies melena, bright red blood per rectum, hemoptysis. Did mention some possible bright red blood in the stool to ER provider however denies this to admitting provider. Denies abdominal pain. Denies fever/chills. Does feel shaky. Denies dysuria. Denies recreational drug use. Endorses alcohol intake as noted in tobacco intake as noted. He reports in the event of a cardiopulmonary arrest he would not want CPR resuscitation, confirms DNR/DNI admission. Reports he has not seen a doctor in "a very long time "and does not take any prescription medications. He denies any history of cardiac disease/TX/arrhythmia, denies history of strokes, denies history of diabetes. Denies history of immunosuppression and denies history of cancer. Discharge Exam General-awake. He appears to be oriented x 3. No fever HEENT-head atraumatic and normocephalic, pupils equal and reactive to light, extraocular muscles intact Neck-no lymphadenopathy or thyromegaly, trachea midline Chest-clear to auscultation anteriorly. No rales, wheezing or rhonchi Cardiac-regular rate and rhythm, normal S1 and S2 Abdomen-normal bowel sounds, no hepatosplenomegaly Extremities-no cyanosis, clubbing, or edema Neuro-cranial nerves II through XII intact, motor and sensory function within normal limits, strength symmetrical with generalized weakness, no focal deficits Psych-depressed affect Discharge Plan Discharge Items Patient Disposition: Home - Self-Care Reason For Visit: ANEMIA, ETOH WITHDRAWAL Discharge Diagnosis: Acute alcohol intoxication with syncope, infestation with lice and bedbugs, iron deficiency anemia Activity: Resume your previous activity Non-emergency contact: Primary Care Provider Call non-emergency contact if: your symptoms worsen Follow-up/Referrals: PCP,NO [Primary Care Provider] - Diet: Regular Addtl Attending Provider Instructions: Continue to take magnesium, iron, and potassium supplementation. Prescriptions have been sent to [facility] on [facility] Pending Studies at Discharge: No Stand-Alone Forms: My [facility], Smoking Cessation Medications and DC Order Prescriptions: New magnesium oxide 400 mg (241.3 mg magnesium) Tablet 400 mg PO BID Qty: 60 0RF ferrous sulfate 325 mg (65 mg iron) Tablet,Delayed Release (Dr/Ec) 325 mg PO BIDM Qty: 60 0RF potassium chloride 10 mEq Tablet,Er Particles/Crystals 10 meq PO BID Qty: 60 0RF Discharge Orders: Discharge Order (Routine); Ordered 07/22/24 Ordered By: Osvaldo Holliday Admission Data Admit Date/Time: 07/18/24 15:21 Attending Provider: Osvaldo Holliday Admit Provider: Ricardo Shen Primary Care Provider: PCP,NO Other Providers: Ricardo Shen Hospital Stay Data Consultations 07/18/24 14:17 ED Decision to Admit Stat Diagnostic Imagining Performed 07/18/24 12:47 CT abd pelvis IV con only Stat CT angio chest PE protocol Stat CT cervical spine wo con Stat CT head/brain wo con Stat Pending Results Patient Have Any Pending Studies at Discharge: No Discharge Instructions Given to Patient (Per Discharging Provider) Continue to take magnesium, iron, and potassium supplementation. Prescriptions have been sent to [facility] on [address] Total Time Total Time Spent Total Time Spent (In Minutes): 45 minutes Coding Level of Care Code 18870 INP/OBS DISCH >30 MIN Diagnoses Anemia D64.9 Alcohol abuse F10.10 Bacteremia R78.81 Bedbug bite W57.XXXA Troponin I above reference range R79.89 Rhabdomyolysis T79.6XXA Encounter type: initial encounter Rhabdomyolysis type: traumatic COPD (chronic obstructive pulmonary disease) J44.9
[2024-07-22 13:17] LABS: Babesia microti DNA Not Detected (Not Detected)
--- NOTE | 2024-07-22 16:06 | Hospitalist Progress Note ---
Date of Service July 22, 2024 Assessment & Plan (1) Aspiration into lower respiratory tract: Plan: Suspected. Resulting in code purple situation. Fortunately, he is not hypotensive and oxygen saturation is satisfactory. Nevertheless, he will be placed on 2 L of fluid and kept n.p.o. with IV fluids ordered. Stat portable chest x-ray is pending. (2) Anemia: Plan: No overt GI blood loss seen. He is iron deficient and received 3 days of parenteral iron replacement therapy. He is now on oral iron replacement. He received 2 units of packed red blood cells for hemoglobin of 5.1 on admission. Hemoglobin has improved. Will follow. (3) Alcohol abuse: Plan: He apparently consumes a fifth of hard liquor daily. He was treated with the AWSS protocol while hospitalized. Alcohol cessation has been recommended. (4) Bacteremia: Plan: Gram-positive cocci isolated in the blood. This appears to be Staph epidermidis contaminant. Vancomycin has been discontinued. (5) Bedbug bite: Plan: He has gone through the decontamination progress. Isolation precautions while hospitalized (6) Troponin I above reference range: Plan: This appears to be demand ischemia. No evidence of acute coronary syndrome. No chest pain. No acute EKG changes. (7) Rhabdomyolysis: Plan: Mild on admission. CK now normalized. Resolved (8) COPD (chronic obstructive pulmonary disease): Plan: Longstanding history of tobacco use. Stable. Continue inhalers and as needed nebulizer treatments Plan Anticipated discharge today has been canceled due to suspected aspiration of gastric contents resulting in code purple situation. Admission and Anticipated Discharge Date Admission Date: July 18, 2024 Subjective The patient was ready for discharge when he was found to be unresponsive. Code purple was called. Blood pressure stable and oxygen saturation are stable but he appears to have aspirated. He is moving all 4 extremities so I do not think he had a CVA. Glucose is greater than 100. Blood pressure satisfactory. Anticipated discharge has been canceled. He is a DNR patient Review of Systems 2 Review of Systems: The patient is unable to answer any questions regarding review of systems at this time Physical Exam 2 Physical Exam: General-semiconscious. Nonverbal. He is able to squeeze upon command with both hands and move both lower extremities randomly. HEENT-head atraumatic and normocephalic, pupils equal and reactive to light, extraocular muscles intact Neck-no lymphadenopathy or thyromegaly, trachea midline Chest-bilateral rhonchi from anterior approach. No wheezing. Breath sounds are equal Cardiac-regular rate and rhythm, normal S1 and S2 Abdomen-normal bowel sounds, no hepatosplenomegaly Extremities-no cyanosis, clubbing, or edema Skindiaphoretic Neuro-he is able to grasp with both hands and is moving both lower extremities equally. Psych-cannot assess Results & Data Results & Data Vital Signs (Past 12 Hours) Vital Signs Temp Pulse Pulse Resp BP BP Pulse Ox 07/22/24 13:39 36.6 C 85 16 144/76 H 127/65 98 07/22/24 11:25 36.6 C 85 16 127/65 98 07/22/24 09:09 07/22/24 08:19 76 07/22/24 08:04 36.8 C 87 16 158/82 H 97 07/22/24 07:31 77 14 98 O2 Del Method 07/22/24 13:39 07/22/24 11:25 Room Air 07/22/24 09:09 Room Air 07/22/24 08:19 07/22/24 08:04 Room Air 07/22/24 07:31 Room Air Laboratory Results 07/22/24 08:45 07/22/24 08:45 PG Care Time/CCT Total # of Minutes Spent Total Time Spent with Patient: Total time spent is greater than 50% in coordination of care (as documented) at patient's floor/unit and/or counseling patient: Coding Level of Care Code 00414 SUB INP/OBS CARE 3/50MIN Diagnoses Aspiration into lower respiratory tract T17.800A Anemia D64.9 Alcohol abuse F10.10 Bacteremia R78.81 Bedbug bite W57.XXXA Troponin I above reference range R79.89 Rhabdomyolysis T79.6XXA Encounter type: initial encounter Rhabdomyolysis type: traumatic COPD (chronic obstructive pulmonary disease) J44.9 (7) Rhabdomyolysis Encounter type: initial encounter Rhabdomyolysis type: traumatic Qualified Code(s): T79.6XXA - Traumatic ischemia of muscle, initial encounter
[2024-07-22] MEDS ORDERED: methylPREDNISolone 10 mg/mL (For Ped Dose < 7mg) IV SCH (16:15)
[2024-07-22] MEDS: SODIUM CHLORIDE 0.9% 1,000 ML IV SCH (16:18)
--- NOTE | 2024-07-22 16:28 | XRay Report ---
SINGLE VIEW CHEST CLINICAL HISTORY: Dyspnea. "Rapid response". FINDINGS: 2 AP, portable, upright chest radiographs are compared to chest x-ray and chest CT dated . The examination is degraded by portable technique and patient rotation. The cardiomediastina l silhouette is top normal for projection. Emphysema and chronic interstitial thickening is similar t o previous. There is airspace consolidation at the left lung base and a small left pleural effusion. This is new from 07/18/2024. The right lung appears clear. No pneumothorax is seen. The skeletal struc tures appear osteopenic. The bony thorax is grossly intact. IMPRESSION: 1. There is airspace consolidation and a small left pleural effusion. This is new from 07/18/2024, and typical for pneumonia/aspiration pneumonitis. Clinical correlation will be required and radiographic follow-up to resolution is recommended. 2. Emphysema. 3. The right lung appears clear. ACT 112: Negative or not required by law. Electronically signed by: Vincent Meza M.D. 07/22/2024 4:26 PM
--- NOTE | 2024-07-22 16:33 | Electrocardiogram Report ---
Test Reason : Blood Pressure : */* mmHG Vent. Rate : 95 BPM Atrial Rate : 95 BPM P-R Int : 136 ms QRS Dur : 78 ms QT Int : 360 ms P-R-T Axes : 79 67 87 degrees QTcB Int : 452 ms Poor data quality, interpretation may be adversely affected Normal sinus rhythm Minor Nonspecific ST abnormality Abnormal ECG When compared with ECG of 18-Jul-2024 11:38, No significant change Confirmed by Kendall James ([id number]) on 07/22/2024 4:33:05 PM Referred By: REFERRED SELF Confirmed By: Kendall James
[2024-07-22] MEDS: AMPICILLIN/SULBACTAM SOD 3,000 MG/100 ML BAG IV SCH (16:34)
[2024-07-22] MEDS: methylPREDNISolone 40 MG in SYRINGE 0 ML IV SCH (17:30)
[2024-07-22] MEDS: ALBUT/IPRATROP 3MG/0.5MG NEB 3 ML VIAL NEB SCH (20:32)
[2024-07-23 06:42] LABS: Basophils # (auto) 0.01 K/uL (0.00-0.20); Basophils % (auto) 0.1 %; Hemoglobin 9.1 g/dl (14.0-18.0); Immature Granulocytes # (auto) 0.11 K/uL (0.01-0.20); Immature Granulocytes % (auto) 1.5 %; Lymphocytes # (auto) 0.41 K/uL (1.20-3.40); Lymphocytes % (auto) 5.7 %; Mean Corpuscular Hemoglobin 30.3 pg (25.0-34.0); Mean Corpuscular Hgb Conc 32.5 g/dL (32.0-36.0); Mean Corpuscular Volume 93.3 fL (80.0-100.0); Monocytes # (auto) 0.45 K/uL (0.11-0.59); Monocytes % (auto) 6.3 %; Neutrophils # (auto) 6.16 K/uL (1.40-6.50); Neutrophils % (auto) 86.4 %; Nucleated RBC # (auto) 0.02 K/uL (0.00-0.12); Nucleated RBC % (auto) 0.3 %; Platelet Count 329 K/uL (130-400); RDW Coefficient of Variation 18.6 % (11.5-14.5); RDW Standard Deviation 61.6 fL (36.4-46.3); White Blood Count 7.14 K/ul (4.8-10.8)
[2024-07-23 06:57] LABS: Anion Gap 8 (3-11); BUN Creatinine Ratio 19.4 (10-20); Blood Urea Nitrogen 6 mg/dl (6-23); Calcium 7.4 mg/dl (8.6-10.3); Carbon Dioxide 22 mmol/L (21-32); Chloride 103 mmol/L (98-107); Creatinine Clr Calc Pharmacy 199.2 ml/min; Est GFR (African American) > 150.0 ml/min; Est GFR (Non-African American) 141.4 ml/min; Glucose 138 mg/dl (70-99(Fasting)); Magnesium 1.7 mg/dl (1.7-2.4); Phosphorus 2.4 mg/dl (2.5-4.9); Potassium 3.9 mmol/L (3.5-5.1); Sodium 133 mmol/L (136-145)
--- NOTE | 2024-07-23 10:40 | XRay Report ---
SINGLE VIEW CHEST CLINICAL HISTORY: Follow-up pleural effusion. FINDINGS: An AP, portable, upright chest radiograph is compared to study dated 07/22/2024 and correlat ed with chest CT dated 07/18/2024. . The cardiomediastinal silhouette is top normal for projection. Em physema and chronic interstitial thickening is similar to previous. There is airspace consolidation a t the left lung base and a small left pleural effusion. The right lung appears clear. No pneumothorax is seen. The skeletal structures appear osteopenic. The bony thorax is grossly intact. IMPRESSION: 1. A small left pleural effusion with left basilar consolidation is unchanged from yesterday. 2. Emphysema. ACT 112: Negative or not required by law. Electronically signed by: Vincent Meza M.D. 07/23/2024 10:38 AM
--- NOTE | 2024-07-23 12:08 | Hospitalist Progress Note ---
Date of Service July 23, 2024 Assessment & Plan (1) Aspiration into lower respiratory tract: Plan: Suspected. Result an code purple situation July 22 in the afternoon right before he was going to be discharged. He is back on room air and his chest x- ray done today, July 23, looks better to me. He remains on Solu-Medrol, Unasyn, and DuoNebs. (2) Anemia: Plan: No overt GI blood loss seen. He is iron deficient and received 3 days of parenteral iron replacement therapy. He is now on oral iron replacement. He received 2 units of packed red blood cells for hemoglobin of 5.1 on admission. Hemoglobin has improved. Will follow. (3) Alcohol abuse: Plan: He apparently consumes a fifth of hard liquor daily. He was treated with the AWSS protocol while hospitalized. Alcohol cessation has been recommended. (4) Bacteremia: Plan: Gram-positive cocci isolated in the blood. This appears to be Staph epidermidis contaminant. Vancomycin has been discontinued. (5) Bedbug bite: Plan: He has gone through the decontamination progress. Isolation precautions while hospitalized (6) Troponin I above reference range: Plan: This appears to be demand ischemia. No evidence of acute coronary syndrome. No chest pain. No acute EKG changes. (7) Rhabdomyolysis: Plan: Mild on admission. CK now normalized. Resolved (8) COPD (chronic obstructive pulmonary disease): Plan: Longstanding history of tobacco use. Stable. Continue inhalers and as needed nebulizer treatments Plan Hopeful discharge back to his previous living arrangements on July 25 Admission and Anticipated Discharge Date Admission Date: July 18, 2024 Subjective Alert and oriented. No recurrent episodes of aspiration. Portable chest x-ray done today, July 23, looks better to me despite radiology report. Phosphorus corrected to 2.4 and magnesium 1.7. He remains on intravenous Solu-Medrol, Unasyn, and is receiving DuoNebs. Hemoglobin low but acceptable at 9.1. Potassium stable at 3.9. Positive blood culture appears to be a contaminant. He states he will simply go back home to his previous living arrangements probably on Thursday if he remains stable over the weekend. Review of Systems 2 Review of Systems: Constitutionalno fever or chills ENTno blurred vision, no double vision, no epistaxis, no sore throat Respiratoryno cough, no wheezing, no shortness of breath Cardiacno palpitations, no chest pain, no syncope Ermias nausea, vomiting, diarrhea, melena, hematochezia GUno urinary retention, no urinary incontinence, no dysuria, no hematuria Musculoskeletalno joint pain, no muscle tenderness Skinno bruising, no rashes, no pruritus Neurono isolated weakness, no paresthesia, no weakness Psychno depression, no anxiety Physical Exam 2 Physical Exam: General-alert and oriented x3, no fever, no chills HEENT-head atraumatic and normocephalic, pupils equal and reactive to light, extraocular muscles intact Neck-no lymphadenopathy or thyromegaly, trachea midline Chest-clear to auscultation. No rales, wheezing or rhonchi Cardiac-regular rate and rhythm, normal S1 and S2 Abdomen-normal bowel sounds, no hepatosplenomegaly Extremities-no cyanosis, clubbing, or edema Neuro-cranial nerves II through XII intact, motor and sensory function within normal limits, strength symmetrical, no focal deficits Psych-depressed affect Results & Data Results & Data Vital Signs (Past 12 Hours) Vital Signs Temp Pulse Pulse Resp BP BP Pulse Ox 07/23/24 11:22 83 18 96 07/23/24 10:10 07/23/24 08:25 36.8 C 85 20 145/75 H 93 07/23/24 07:38 68 07/23/24 07:18 79 18 96 07/23/24 02:43 36.7 C 83 16 159/87 H 94 O2 Del Method 07/23/24 11:22 Room Air 07/23/24 10:10 Room Air 07/23/24 08:25 Room Air 07/23/24 07:38 07/23/24 07:18 Room Air 07/23/24 02:43 Room Air Laboratory Results 07/23/24 05:57 07/23/24 05:57 PG Care Time/CCT Total # of Minutes Spent Total Time Spent with Patient: Total time spent is greater than 50% in coordination of care (as documented) at patient's floor/unit and/or counseling patient: Coding Level of Care Code 79852 SUB INP/OBS CARE 3/50MIN Diagnoses Aspiration into lower respiratory tract T17.800A Anemia D64.9 Alcohol abuse F10.10 Bacteremia R78.81 Bedbug bite W57.XXXA Troponin I above reference range R79.89 Rhabdomyolysis T79.6XXA Encounter type: initial encounter Rhabdomyolysis type: traumatic COPD (chronic obstructive pulmonary disease) J44.9 (7) Rhabdomyolysis Encounter type: initial encounter Rhabdomyolysis type: traumatic Qualified Code(s): T79.6XXA - Traumatic ischemia of muscle, initial encounter
[2024-07-23] MEDS: MAGNESIUM SULFATE / D5W 1 GM/100 ML BAG IV SCH (21:35)
[2024-07-24 08:17] LABS: Basophils # (auto) 0.02 K/uL (0.00-0.20); Basophils % (auto) 0.1 %; Hematocrit (blood only) 29.5 % (42.0-52.0); Hemoglobin 9.5 g/dl (14.0-18.0); Immature Granulocytes % (auto) 0.7 %; Lymphocytes # (auto) 0.97 K/uL (1.20-3.40); Lymphocytes % (auto) 7.1 %; Mean Corpuscular Hemoglobin 30.5 pg (25.0-34.0); Mean Corpuscular Hgb Conc 32.2 g/dL (32.0-36.0); Mean Corpuscular Volume 94.9 fL (80.0-100.0); Mean Platelet Volume 9.9 fL (9.4-12.4); Monocytes % (auto) 14.6 %; Neutrophils # (auto) 10.63 K/uL (1.40-6.50); Neutrophils % (auto) 77.5 %; Platelet Count 441 K/uL (130-400); RDW Coefficient of Variation 18.7 % (11.5-14.5); RDW Standard Deviation 63.7 fL (36.4-46.3); Red Blood Count 3.11 M/uL (4.70-6.10); White Blood Count 13.72 K/ul (4.8-10.8)
[2024-07-24 10:44] LABS: Anion Gap 11 (3-11); BUN Creatinine Ratio 17.1 (10-20); Blood Urea Nitrogen 7 mg/dl (6-23); Calcium 7.7 mg/dl (8.6-10.3); Carbon Dioxide 18 mmol/L (21-32); Chloride 104 mmol/L (98-107); Creatinine Clr Calc Pharmacy 150.6 ml/min; Est GFR (African American) 146.1 ml/min; Glucose 157 mg/dl (70-99(Fasting)); Sodium 133 mmol/L (136-145)
[2024-07-24] MEDS: dilTIAZem HCl 60 MG TAB PO SCH (13:59)
--- NOTE | 2024-07-24 14:37 | Hospitalist Progress Note ---
Date of Service July 24, 2024 Assessment & Plan (1) Aspiration into lower respiratory tract: Plan: Suspected. Result an code purple situation July 22 in the afternoon right before he was going to be discharged. Now stable. Solu-Medrol discontinued. Unasyn switched to Augmentin today, July 24. He is now on room air. (2) Anemia: Plan: No overt GI blood loss seen. He is iron deficient and received 3 days of parenteral iron replacement therapy. He is now on oral iron replacement. He received 2 units of packed red blood cells for hemoglobin of 5.1 on admission. Hemoglobin has improved. Will follow. (3) Alcohol abuse: Plan: He apparently consumes a fifth of hard liquor daily. He was treated with the AWSS protocol while hospitalized. Alcohol cessation has been recommended. (4) PSVT (paroxysmal supraventricular tachycardia): Plan: Asymptomatic and recurrent. Diltiazem has been started. Telemetry. This can be switched to the long-acting CD formulation tomorrow, July 25 (5) Bacteremia: Plan: Gram-positive cocci isolated in the blood. This appears to be Staph epidermidis contaminant. Vancomycin has been discontinued. (6) Bedbug bite: Plan: And lice. He has gone through the decontamination progress. Resolved (7) Troponin I above reference range: Plan: This appears to be demand ischemia. No evidence of acute coronary syndrome. No chest pain. No acute EKG changes. (8) Rhabdomyolysis: Plan: Mild on admission. CK now normalized. Resolved (9) COPD (chronic obstructive pulmonary disease): Plan: Longstanding history of tobacco use. Stable. Continue inhalers and as needed nebulizer treatments Plan Hopeful discharge back to his previous living arrangements on July 25 Admission and Anticipated Discharge Date Admission Date: July 18, 2024 Subjective Alert and oriented. No complaints. He had another episode of nonsustained asymptomatic SVT last evening. Diltiazem has been started 60 mg 3 times a day. This can be switched to the long-acting formulation tomorrow, July 25, if well-tolerated. Unasyn has been switched to oral Augmentin. Solu-Medrol discontinued. IV fluids discontinued. Will repeat portable chest x-ray again tomorrow, July 25. Review of Systems 2 Review of Systems: Constitutionalno fever or chills ENTno blurred vision, no double vision, no epistaxis, no sore throat Respiratoryno cough, no wheezing, no shortness of breath Cardiacno palpitations, no chest pain, no syncope Ermias nausea, vomiting, diarrhea, melena, hematochezia GUno urinary retention, no urinary incontinence, no dysuria, no hematuria Musculoskeletalno joint pain, no muscle tenderness Skinno bruising, no rashes, no pruritus Neurono isolated weakness, no paresthesia, no weakness Psychno depression, no anxiety Physical Exam 2 Physical Exam: General-alert and oriented x3, no fever, no chills HEENT-head atraumatic and normocephalic, pupils equal and reactive to light, extraocular muscles intact Neck-no lymphadenopathy or thyromegaly, trachea midline Chest-clear to auscultation. No rales, wheezing or rhonchi Cardiac-regular rate and rhythm, normal S1 and S2 Abdomen-normal bowel sounds, no hepatosplenomegaly Extremities-no cyanosis, clubbing, or edema Neuro-cranial nerves II through XII intact, motor and sensory function within normal limits, strength symmetrical, no focal deficits Psych-depressed affect Results & Data Results & Data Vital Signs (Past 12 Hours) Vital Signs Temp Pulse Pulse Resp BP BP Pulse Ox 07/24/24 14:13 106 H 07/24/24 11:44 90 18 97 07/24/24 08:04 36.8 C 79 16 173/75 H 97 07/24/24 07:26 80 07/24/24 07:24 78 18 95 07/24/24 04:17 36.8 C 81 18 173/74 H 97 O2 Del Method 07/24/24 14:13 07/24/24 11:44 Room Air 07/24/24 08:04 Room Air 07/24/24 07:26 07/24/24 07:24 Room Air 07/24/24 04:17 Room Air Laboratory Results 07/24/24 07:36 07/24/24 11:24 PG Care Time/CCT Total # of Minutes Spent Total Time Spent with Patient: Total time spent is greater than 50% in coordination of care (as documented) at patient's floor/unit and/or counseling patient: Coding Level of Care Code 99715 SUB INP/OBS CARE 3/50MIN Diagnoses Aspiration into lower respiratory tract T17.800A Anemia D64.9 Alcohol abuse F10.10 PSVT (paroxysmal supraventricular tachycardia) I47.10 Bacteremia R78.81 Bedbug bite W57.XXXA Troponin I above reference range R79.89 Rhabdomyolysis T79.6XXA Encounter type: initial encounter Rhabdomyolysis type: traumatic COPD (chronic obstructive pulmonary disease) J44.9 (8) Rhabdomyolysis Encounter type: initial encounter Rhabdomyolysis type: traumatic Qualified Code(s): T79.6XXA - Traumatic ischemia of muscle, initial encounter
[2024-07-24] MEDS: AMOXICILLIN/CLAVULANATE 875 MG TAB PO SCH (16:32)
[2024-07-25 06:35] LABS: Basophils # (auto) 0.02 K/uL (0.00-0.20); Basophils % (auto) 0.1 %; Eosinophils # (auto) 0.08 K/uL (0.00-0.50); Eosinophils % (auto) 0.5 %; Hematocrit (blood only) 28.9 % (42.0-52.0); Hemoglobin 9.2 g/dl (14.0-18.0); Immature Granulocytes # (auto) 0.17 K/uL (0.01-0.20); Lymphocytes % (auto) 11.6 %; Mean Corpuscular Hemoglobin 30.6 pg (25.0-34.0); Mean Corpuscular Hgb Conc 31.8 g/dL (32.0-36.0); Mean Platelet Volume 9.7 fL (9.4-12.4); Monocytes # (auto) 2.29 K/uL (0.11-0.59); Neutrophils # (auto) 11.91 K/uL (1.40-6.50); Neutrophils % (auto) 72.8 %; Platelet Count 540 K/uL (130-400); RDW Coefficient of Variation 18.3 % (11.5-14.5); RDW Standard Deviation 63.5 fL (36.4-46.3); Red Blood Count 3.01 M/uL (4.70-6.10); White Blood Count 16.37 K/ul (4.8-10.8)
[2024-07-25 06:37] LABS: BUN Creatinine Ratio 20.8 (10-20); Creatinine Clr Calc Pharmacy 116.5 ml/min; Est GFR (African American) 131.4 ml/min; Est GFR (Non-African American) 113.4 ml/min; Phosphorus 1.8 mg/dl (2.5-4.9); Potassium 3.9 mmol/L (3.5-5.1)
--- NOTE | 2024-07-25 07:13 | XRay Report ---
SINGLE VIEW CHEST CLINICAL HISTORY: Aspiration FINDINGS: An AP, portable, upright chest radiograph is compared to study dated 07/23/2024 and correlat ed with chest CT dated 07/18/2024. . The cardiomediastinal silhouette is top normal for projection. Em physema and chronic interstitial thickening is similar to previous. Airspace consolidation and pleura l effusion at the left lung base seen previously have almost completely resolved. Scarring/atelectasi s is noted at both lung bases. No pneumothorax is seen. The skeletal structures appear osteopenic. Th e bony thorax is grossly intact. IMPRESSION: 1. Left pleural effusion and left basilar consolidation seen on 07/23/2024 have almost completely reso lved. 2. Emphysema. ACT 112: Negative or not required by law. Electronically signed by: Vincent Meza M.D. 07/25/2024 7:11 AM
[2024-07-25] MEDS: dilTIAZem HCL 180 MG CAPCR PO SCH (08:25)
[2024-07-25] MEDS: POT PHOSPHATE MONOBASIC W/ SOD TAB PO SCH (08:25)
[2024-07-25] MEDS ORDERED: ALBUT/IPRATROP 3MG/0.5MG NEB 3 ML VIAL NEB PRN (10:23)
--- NOTE | 2024-07-25 14:11 | Hospitalist Progress Note ---
Date of Service July 25, 2024 Assessment & Plan (1) Aspiration into lower respiratory tract: Plan: -Suspected. -Result an code purple July 22 -Improving -Solu-Medrol now discontinued. -Unasyn switched to Augmentin July 24- will complete course of oral abx -He is now on room air. -Continue to monitor closely -Repeat CXR 07/25: Almost complete resolution of left pleural effusion and left basilar consolidation (2) Anemia: Plan: -No overt GI blood loss seen. -Patient is iron deficient and received 3 days of parenteral iron replacement therapy. He is now on oral iron replacement. -He received 2 units of packed red blood cells for hemoglobin of 5.1 on admission. -Folic acid- slightly decreased will start supplementation -B12- normal but in low normal range, given hx of alcohol use will start po supplementation -Continue to monitor (3) Alcohol abuse: Plan: -He apparently consumes hard liquor daily. -He was treated with the AWSS protocol while hospitalized. -Alcohol cessation has been counseled (4) PSVT (paroxysmal supraventricular tachycardia): Plan: -Asymptomatic and recurrent. -Diltiazem has been started. -Monitor on Telemetry. -Cardizem switched to long acting formulation this AM -Echo: interpretation as normal -Patient will require outpatient cardiology follow up- we discussed the importance of this at length (5) Bacteremia: Plan: -Gram-positive cocci isolated in the blood earlier on admission. -This appears to be Staph epidermidis contaminant. -Vancomycin has been discontinued. -Monitor for signs of infection (6) Bedbug bite: Plan: -And lice. -He has gone through the decontamination progress -Continue isolation protocol (7) Troponin I above reference range: Plan: -Likely demand ischemia. -No evidence of acute coronary syndrome. No chest pain. No acute EKG changes. (8) Rhabdomyolysis: Plan: -Mild on admission. -CK now normalized. -Resolved (9) COPD (chronic obstructive pulmonary disease): Plan: -Longstanding history of tobacco use. -Continue inhalers and as needed nebulizer treatments Plan Planning possible Dc to prior living arrangement in the AM Admission and Anticipated Discharge Date Admission Date: July 18, 2024 Subjective Patient seen and evaluated bedside Patient is currently in NAD Reports continuing to improve HR better controlled now- now on long acting Cardizem CXR improved this AM- this was discussed at length Review of Systems Review of Systems: As indicated in HPI Physical Exam Physical Exam: General-alert and oriented x3, no fever, no chills HEENT-head atraumatic and normocephalic, extraocular muscles intact Neck-no lymphadenopathy or thyromegaly, trachea midline Chest-clear to auscultation. No rales, wheezing or rhonchi Cardiac-regular rate and rhythm, normal S1 and S2 Abdomen-normal bowel sounds, no hepatosplenomegaly Extremities-no cyanosis, clubbing, or edema Neuro-cranial nerves II through XII intact, motor and sensory function within normal limits, strength symmetrical, no focal deficits Psych-depressed affect Results & Data Results & Data Vital Signs (Past 12 Hours) Vital Signs Temp Pulse Pulse Resp BP BP Pulse Ox 07/25/24 11:47 36.6 C 89 16 149/72 H 98 07/25/24 07:46 36.9 C 70 16 187/77 H 100 07/25/24 07:25 77 18 97 07/25/24 06:16 78 07/25/24 02:20 36.8 C 87 16 180/81 H 95 O2 Del Method 07/25/24 11:47 Room Air 07/25/24 07:46 Nebulizer 07/25/24 07:25 Room Air 07/25/24 06:16 07/25/24 02:20 Room Air PG Care Time/CCT Total # of Minutes Spent Total Time Spent with Patient: Total time spent is greater than 50% in coordination of care (as documented) at patient's floor/unit and/or counseling patient: Coding Level of Care Code 06861 SUB INP/OBS CARE 2/35MIN Diagnoses Aspiration into lower respiratory tract T17.800A Anemia D64.9 Alcohol abuse F10.10 PSVT (paroxysmal supraventricular tachycardia) I47.10 Bacteremia R78.81 Bedbug bite W57.XXXA Troponin I above reference range R79.89 Rhabdomyolysis T79.6XXA Encounter type: initial encounter Rhabdomyolysis type: traumatic COPD (chronic obstructive pulmonary disease) J44.9 (8) Rhabdomyolysis Encounter type: initial encounter Rhabdomyolysis type: traumatic Qualified Code(s): T79.6XXA - Traumatic ischemia of muscle, initial encounter
[2024-07-25] MEDS: CYANOCOBALAMIN (B-12) 100 MCG TABLET PO SCH (16:05)
[2024-07-25] MEDS: FOLIC ACID 1 MG TAB PO SCH (16:05)
[2024-07-25 20:36] VITALS: RESP 18
[2024-07-26 08:54] VITALS: PULSE 95; TEMP 98.7; O2SAT 94
--- NOTE | 2024-07-26 11:00 | Discharge Summary ---
Discharge Summary Date of Service July 26, 2024 Principal Dx & Hospital Course #1 = Principal Diagnosis (1) Aspiration into lower respiratory tract: -Suspected. -Resulted in a code purple July 22 -Improved -Solu-Medrol now discontinued. -Unasyn switched to Augmentin July 24- will complete course of oral abx- discharged on 3 more days of po antibiotics. -He is now on room air. -Continue to monitor closely -Repeat CXR 07/25: Almost complete resolution of left pleural effusion and left basilar consolidation (2) Anemia: -No overt GI blood loss seen. -Patient is iron deficient and received 3 days of parenteral iron replacement therapy. He is now on oral iron replacement- this was continued at discharge. -He received 2 units of packed red blood cells for hemoglobin of 5.1 on admission. -Folic acid- slightly decreased will start supplementation -B12- normal but in low normal range, given hx of alcohol use will start po supplementation -Patient is aware that he needs to continue supplements at home- discussed picking up over the counter for cost purposes for some of the vitamins. -Continue to monitor (3) Alcohol abuse: -He apparently consumes hard liquor daily. -He was treated with the AWSS protocol while hospitalized. -Alcohol cessation has been counseled (4) PSVT (paroxysmal supraventricular tachycardia): -Asymptomatic and recurrent. -Diltiazem has been started. -Monitor on Telemetry. -Cardizem switched to long acting formulation- tolerating well. -Echo: interpretation as normal -Patient will require outpatient cardiology follow up- we discussed the importance of this at length (5) Bacteremia: -Gram-positive cocci isolated in the blood earlier on admission. -This appears to be Staph epidermidis contaminant. -Vancomycin has been discontinued. -Monitor for signs of infection (6) Bedbug bite: -And lice. -He has gone through the decontamination progress -Continue isolation protocol (7) Troponin I above reference range: -Likely demand ischemia. -No evidence of acute coronary syndrome. No chest pain. No acute EKG changes. (8) Rhabdomyolysis: -Mild on admission. -CK now normalized. -Resolved (9) COPD (chronic obstructive pulmonary disease): -Longstanding history of tobacco use. -Continue inhalers and as needed nebulizer treatments Plan Planning possible Dc to prior living arrangement in the AM Notes For Next Care Provider Patient presenting with alcohol use disorder. Treated inpatient with [facility] protocol. Was nearing discharge but then had an aspiration event. Improved with IV abx and steroids. Transitioned to po abx upon DC. Patient also found to have anemia on presentation. Received 2 units of PRBCs, started on Iron IV and then transitioned to po. Patient also given folic acid repletion. Patient noted to have episodes of paroxysmal-VT improved with cardizem. Medication Changes From Visit Cardizem, Augmentin-3 more days, Po iron, po folic acid Admission HPI Per Admitting Provider Mich Castellano is a 64-year-old male patient with a past medical history of alcoholism who was found down in his home by his housemate. Per patient patient felt normal last night, but rolled out of bed last night and fell from bed and could not get back up. EMS at the scene helped patient attempted get into bed but was diaphoretic and with an episode of syncope, heart rate in the [id number]. Was brought to the hospital for emergent evaluation. On ER evaluation no leukocytosis, acute anemia with hemoglobin 5.1 macrocytic MCV 105. VBG 7 point 02/27//15 Hypokalemic 3.0, creatinine is at its baseline of 1.0 Lactate markedly elevated at 11 CK elevated at 1078 High sensitive troponin 58.7 Procalcitonin elevated 1.19 Bio[employer] pending INR 1.2 EKG: Normal sinus rhythm, nonspecific changes? Anterior lateral ischemia Mich is seen at the bedside. He reports he moved to [place] after he was previously homeless. Has been drinking 1/5 of liquor per day for "as long as I can remember". Reports he ran out of money to buy alcohol and stopped drinking over the weekend, last drink was Thursday evening. He reports he has felt progressively fatigued and shaky. Rolled out of bed last night and felt too weak to get back up. EMS was called, initially was refusing evaluation however had an episode of diaphoresis syncope and tachycardia and ultimately agreed and was brought to the hospital for evaluation. He reports he has had a productive cough in the last couple of days. He has a history of tobacco use at least a pack per day, and he thinks COPD but has not been on any inhaler since he was able to see a [facility] physician many years ago. He thinks he was on Spiriva in the past. Denies other history of medical problems. He denies melena, bright red blood per rectum, hemoptysis. Did mention some possible bright red blood in the stool to ER provider however denies this to admitting provider. Denies abdominal pain. Denies fever/chills. Does feel shaky. Denies dysuria. Denies recreational drug use. Endorses alcohol intake as noted in tobacco intake as noted. He reports in the event of a cardiopulmonary arrest he would not want CPR resuscitation, confirms DNR/DNI admission. Reports he has not seen a doctor in "a very long time "and does not take any prescription medications. He denies any history of cardiac disease/[place]/arrhythmia, denies history of strokes, denies history of diabetes. Denies history of immunosuppression and denies history of cancer. Discharge Exam General-alert and oriented x3, no fever, no chills HEENT-head atraumatic and normocephalic, extraocular muscles intact Neck-no lymphadenopathy or thyromegaly, trachea midline Chest-clear to auscultation. No rales, wheezing or rhonchi Cardiac-regular rate and rhythm, normal S1 and S2 Abdomen-normal bowel sounds, no hepatosplenomegaly Extremities-no cyanosis, clubbing, or edema Neuro-cranial nerves II through XII intact, motor and sensory function within normal limits, strength symmetrical, no focal deficits Psych-depressed affect Discharge Plan Discharge Items Patient Disposition: Home - Self-Care Reason For Visit: ANEMIA, ETOH WITHDRAWAL Discharge Diagnosis: Acute alcohol intoxication with syncope, infestation with lice and bedbugs, iron deficiency anemia Activity: Resume your previous activity Non-emergency contact: Primary Care Provider and Accounting Consultant Call non-emergency contact if: your symptoms worsen Follow-up/Referrals: PCP,NO [Primary Care Provider] - Diet: Regular Addtl Attending Provider Instructions: Continue to take magnesium, iron, folic acid and potassium supplementation. Prescriptions have been sent to [facility] on [address] Pending Studies at Discharge: No Stand-Alone Forms: My [employer], Smoking Cessation Medications and DC Order Prescriptions: New magnesium oxide 400 mg (241.3 mg magnesium) Tablet 400 mg PO BID Qty: 60 0RF ferrous sulfate 325 mg (65 mg iron) Tablet,Delayed Release (Dr/Ec) 325 mg PO BIDM Qty: 60 0RF potassium chloride 10 mEq Tablet,Er Particles/Crystals 10 meq PO BID Qty: 60 0RF amoxicillin-pot clavulanate 875-125 mg tablet 1 tab PO BID Qty: 6 0RF diltiazem HCl [Cardizem LA] 180 mg tablet extended release 24 hr 180 mg PO DAILY Qty: 30 0RF folic acid 1 mg tablet 1 mg PO DAILY Qty: 30 0RF Discharge Orders: Discharge Order (Routine); Ordered 07/26/24 Ordered By: Sheldon Trujillo/Other Patient Handouts: Supraventricular Tachycardia, Anemia, Alcohol Addiction, Alcoholism: Getting Help, Supraventricular Tachycardia Tx Admission Data Admit Date/Time: 07/18/24 15:21 Attending Provider: Sheldon Linton Admit Provider: Ricardo Shen Primary Care Provider: PCP,NO Other Providers: Ricardo Shen Other Interventions: Discharge Summary Assessment (RN) Last Done: 07/26/24 12:47 Hospital Stay Data Consultations 07/18/24 14:17 ED Decision to Admit Stat Diagnostic Imagining Performed 07/18/24 12:47 CT abd pelvis IV con only Stat CT angio chest PE protocol Stat CT cervical spine wo con Stat CT head/brain wo con Stat Pending Results Patient Have Any Pending Studies at Discharge: No Discharge Instructions Given to Patient (Per Discharging Provider) Continue to take magnesium, iron, folic acid and potassium supplementation. Prescriptions have been sent to [facility] on [address] Total Time Total Time Spent Total Time Spent (In Minutes): >45 minutes Coding Level of Care Code 73296 INP/OBS DISCH >30 MIN Diagnoses Aspiration into lower respiratory tract T17.800A Anemia D64.9 Alcohol abuse F10.10 PSVT (paroxysmal supraventricular tachycardia) I47.10 Bacteremia R78.81 Bedbug bite W57.XXXA Troponin I above reference range R79.89 Rhabdomyolysis T79.6XXA Encounter type: initial encounter Rhabdomyolysis type: traumatic COPD (chronic obstructive pulmonary disease) J44.9
[2024-07-26 11:04] VITALS: BP 160/71
[2024-07-26] MEDS ORDERED: LORazepam 2 MG/1 ML VIAL IV PRN ×2 (14:10→14:13)
== END 2024-07-26 15:47 | disposition home or self-care (01) | DRG 813 ==
LOC: ED 11:30 → SUATTDRO 15:21 → 1E 15:21 → 2W 07-19 18:29

== ENCOUNTER 2024-11-27 13:35 | Inpatient (IN) ==
--- NOTE | 2024-11-27 14:11 | Emergency Department Note ---
Impression & Plan Anemia, Alcohol abuse, Bed bug bite, Abdominal pain, GIB (gastrointestinal bleeding), Pleural effusion, Abdominal ascites, Hypoxia ED Provider Note NAME: BLANCA CLAIRE AGE: 64 SEX: M : 1960 ARRIVES VIA: Ambulance INFORMANT: Patient, EMS ED PROVIDER(S): Mario Randall DO CHIEF COMPLAINT: Abdominal pain HPI: The patient is a 64-year-old male who presented to the emergency department by ambulance for an evaluation of abdominal pain. The patient denies having any nausea or vomiting. The patient denies having any back pain or chest pain. He has a history of alcohol abuse. He also has a history of bedbug bites causing anemia. The patient states he continues to use tobacco as well as alcohol products. He arrived via ambulance. The prehospital personnel noted the patient as well as the household was very unkempt. The patient's been having diarrhea and not changing his close. ROS: See above HPI for pertinent positives & negatives. A total of 10 systems reviewed and were otherwise negative. PAST MEDICAL HISTORY: See Below PAST SURGICAL HISTORY: See Below FAMILY HISTORY: See Below SOCIAL HISTORY: See Below HOME MEDICATIONS: See Below ALLERGIES: See Below VITALS: See Below PHYSICAL EXAMINATION: GENERAL: The patient is awake and alert. The patient is anxious.. EYES: The conjunctivae are clear. The pupils are round and reactive. EARS, NOSE, MOUTH AND THROAT: The nose is without any evidence of any deformity. Mucous membranes are dry. NECK: The neck is nontender and supple. RESPIRATORY: Diminished breath sounds are noted throughout. There is no tachypnea or conversational dyspnea. CARDIOVASCULAR: Regular rate and rhythm noted there no murmurs rubs or gallops normal S1 normal S2. GASTROINTESTINAL: The abdomen is distended. The abdomen is diffusely tender. Rectal exam revealed light brown stool that was strongly heme positive. MUSCULOSKELETAL/EXTREMITIES: There is no evidence of gross deformity full range of motion is noted in the hips and shoulders. SKIN: Pedal edema was noted bilaterally. Skin is warm and dry. They were insect bites noted on both lower and upper extremities. NEUROLOGIC: Patient is awake alert and oriented x3 MEDICAL DECISION MAKING: The patient is a 64-year-old male who presented to the emergency department. The patient called 911. He was having trouble with extreme weakness. He has a history of alcohol abuse. He also has a history of tobacco abuse. The patient was describing diarrhea. The diarrhea was light brown but on exam he was heme positive. I discussed the patient's laboratory and radiographic studies with him. He was treated with IV fluids as well as blood transfusion. The patient was reevaluated multiple times. The patient's vital signs did show episodes of hypotension. He was also tachycardic. Given the patient's amount of pleural effusion as well as ascites it is possible that he is starting the third space. I discussed his condition with the on-call [facility] hospitalist. They have agreed to evaluate the patient in the emergency department for further management and disposition. I did consent the patient for blood products. Triage Nursing notes reviewed. Prior medical records reviewed Vital Signs: reviewed and remarkable for tachycardia and episodes of hypotension. Differential diagnosis: Etiologies such as appendicitis, diverticulitis, obstruction, inflammatory bowel disease, renal colic, PUD, biliary pathology, pancreatitis, mesenteric ischemia, aortic pathology, infections, genitourinary, UTI, perforated viscus, as well as others were entertained. ER treatment provided: See below Diagnostics interpreted by me: ECG: EKG was obtained in the emergency department. My interpretation is sinus tachycardia at 105 bpm. There is no ectopy. Nonspecific T wave abnormalities were noted. This was compared to a tracing from July 22, 2024. The T wave flattening is new compared to the previous tracing otherwise no significant changes were noted. A second EKG was obtained in the emergency department. My interpretation is sinus tachycardia at 151 bpm. No PVCs were noted. Poor R wave progression was noted. Compared to the earlier tracing the rate has increased. Cardiac Monitoring: An order was placed for continuous cardiac monitoring. The monitor shows a rate of 130 bpm with sinus tachycardia. Laboratory studies: As stated above and show below. Imaging studies: See below. Radiographic imaging was reviewed by myself Consultation(s): I discussed this case with Dr. Pandya who is on-call for the [facility]ist group. ED COURSE: Procedures: none Critical Care: I have personally spent greater than 45 minutes of critical care time in the direct management of this patient. This includes bedside care, interpretation of diagnostic studies, and testing, discussion with consultants, patient, and family members, and other required patient management activities. This 45 minutes is in excess of all separately billable procedures. Past Med/Surg History Problem List (Updated 11/27/24 @ 16:16 by Mario Randall DO) Hypoxia (Acute) Abdominal ascites (Acute) Pleural effusion (Acute) GIB (gastrointestinal bleeding) (Acute) Abdominal pain (Acute) Anemia (Acute) PSVT (paroxysmal supraventricular tachycardia) Aspiration into lower respiratory tract Symptomatic anemia (Acute) Bed bug bite (Acute) Alcohol abuse (Acute) Transaminitis Rhabdomyolysis (Acute) Hypotension Troponin I above reference range (Acute) Bedbug bite Alcohol abuse Syncope (Acute) Medical History COPD (chronic obstructive pulmonary disease) Macrocytic anemia Coagulopathy Anemia Alcohol dependence Social History Smoking Status: Current every day smoker Tobacco Type: Cigarettes Cigarettes Per Day: 20; Do You Dip or Chew Tobacco: No; Hx Alcohol Use: Yes Alcohol type: hard liquor Hx Substance Use: No (unknown) Preferred Language: Malay Communication Ability: Unable Beliefs That Will Affect Care: None Current Living Situation: Other Current Living Situation Comment: pt states lives in home with roommate provided by [employer] Feels Safe at Home: Yes Assistive Devices: None Allergies Allergies Allergy/AdvReac Type Severity Reaction Status Date / Time No Known Drug Allergies Allergy Unknown Verified 07/19/24 18:46 Home Meds Previous Rx's Medication Instructions Recorded ferrous sulfate 325 mg (65 mg 325 mg PO BIDM #60 tabs 07/22/24 iron) tablet,delayed release magnesium oxide 400 mg (241.3 mg 400 mg PO BID #60 tabs 07/22/24 magnesium) tablet potassium chloride 10 mEq 10 meq PO BID #60 tabs 07/22/24 tablet,extended release(part/cryst) amoxicillin 875 mg-potassium 1 tab PO BID #6 tabs 07/26/24 clavulanate 125 mg tablet diltiazem HCl 180 mg 180 mg PO DAILY #30 tabs 07/26/24 tablet,extended release 24 hr (Cardizem LA) folic acid 1 mg tablet 1 mg PO DAILY #30 tabs 07/26/24 Results & Data (ED) Vital Signs Vital Signs - 24 hr 11/27/24 14:08 11/27/24 14:13 11/27/24 14:13 Temperature 36.5 C Temperature Source Oral Pulse Rate 111 H 108 H Respiratory Rate 23 Blood Pressure 110/55 L Blood Pressure Mean 73 Pulse Oximetry 99 99 Oxygen Delivery Method Room Air Room Air Oxygen Flow Rate Sepsis Recent Fever Within 48 Hours No Sepsis New/Unexplained Change in Mental Status N/A Sepsis Action Taken by Nursing Physician Notified Oxygen Flow Rate - Titration Pulse Oximetry Post Tiitration 11/27/24 15:51 11/27/24 16:25 11/27/24 16:45 Temperature 36.6 C 36.6 C Temperature Source Oral Oral Pulse Rate 146 H 106 H Respiratory Rate 26 H 20 Blood Pressure 105/63 86/54 L Blood Pressure Mean 77 64 Pulse Oximetry 86 L 94 100 Oxygen Delivery Method Room Air Oxygen Flow Rate 0 3 3 Sepsis Recent Fever Within 48 Hours Sepsis New/Unexplained Change in Mental Status Sepsis Action Taken by Nursing Oxygen Flow Rate - Titration 2 Pulse Oximetry Post Tiitration 94 11/27/24 17:00 11/27/24 17:15 Temperature 36.6 C Temperature Source Oral Pulse Rate 93 H 149 H Respiratory Rate 10 L 16 Blood Pressure 83/43 L 116/64 Blood Pressure Mean 56 81 Pulse Oximetry 99 100 Oxygen Delivery Method Oxygen Flow Rate 3 3 Sepsis Recent Fever Within 48 Hours Sepsis New/Unexplained Change in Mental Status Sepsis Action Taken by Nursing Oxygen Flow Rate - Titration Pulse Oximetry Post Tiitration Home Medications Current Medication List: was personally reviewed by me Laboratory Data Attestation: I reviewed the patient's lab results. 11/27/24 14:33 11/27/24 14:33 Lab Results 11/27/24 11/27/24 11/27/24 Range/Units 14:33 14:36 14:38 WBC 2.46 L (4.8-10.8) K/ul RBC 3.69 L (4.70-6.10) M/uL Hgb 5.8 L* (14.0-18.0) g/dl POC Hgb 8.5 L (14.0-18.0) g/dl Hct 23.7 L (42.0-52.0) % POC Hct 25 L (42-52) % MCV 64.2 L (80.0-100.0) fL MCH 15.7 L (25.0-34.0) pg MCHC 24.5 L (32.0-36.0) g/dL RDW Std Deviation 55.1 H (36.4-46.3) fL RDW Coeff of Jourdan 26.3 H (11.5-14.5) % Plt Count 540 H (130-400) K/uL MPV 9.6 (9.4-12.4) fL Immature Gran % (Auto) 0.4 % Neut % (Auto) 83.3 % Lymph % (Auto) 11.8 % Schoolcraft % (Auto) 4.1 % Eos % (Auto) 0.0 % Baso % (Auto) 0.4 % Neut # (Auto) 2.05 (1.40-6.50) K/uL Lymph # (Auto) 0.29 L (1.20-3.40) K/uL Schoolcraft # (Auto) 0.10 L (0.11-0.59) K/uL Eos # (Auto) 0.00 (0.00-0.50) K/uL Baso # (Auto) 0.01 (0.00-0.20) K/uL Immature Gran # (Auto) 0.01 (0.01-0.20) K/uL Absolute Nucleated RBC 1.04 H (0.00-0.12) K/uL Nucleated RBC % (auto) 42.3 % Polychromasia 1+ Poikilocytosis Present Anisocytosis Present Microcytosis Present Ovalocytes 1+ PT 14.9 H (9.0-12.0) Seconds INR 1.4 H (0.9-1.1) APTT 21 (21-31) Seconds PTT Ratio 0.8 POC Sodium 148 H (135-144) mmol/L Sodium 146 H (136-145) mmol/L POC Potassium 3.7 (3.3-5.0) mmol/L Potassium 3.8 (3.5-5.1) mmol/L POC Chloride 112 (101-112) mmol/L Chloride 115 H (98-107) mmol/L Carbon Dioxide 22 (21-32) mmol/L POC Total CO2 21 L (24-31) mmol/L Anion Gap 9 (3-11) POC Anion Gap 20.0 (16-25) mmol/L POC BUN 30 H (7-18) mg/dl BUN 33 H (6-23) mg/dl Creatinine 0.93 (0.6-1.4) mg/dl POC Creatinine 1.0 (0.6-1.3) mg/dl Est Cr Clr Drug Dosing 78.5 ml/min eGFR 92.84 BUN/Creatinine Ratio 35.5 H (10-20) Glucose 128 H (70-99(Fasting)) mg/dl POC Glucose (other) 119 H (70-99) mg/dl Calcium 8.0 L (8.6-10.3) mg/dl POC Ioniz Calcium Dorie 1.17 (1.12-1.32) mmol/l Magnesium 1.9 (1.7-2.4) mg/dl Total Bilirubin 1.2 H (0.2-1.0) mg/dl AST 14 (13-39) U/L ALT 58 H (7-52) U/L Alkaline Phosphatase 67 (34-104) U/L Troponin I High Sens 20.7 H (0-20) pg/ml Total Protein 5.5 L (6.0-8.3) gm/dl Albumin 3.0 L (3.4-5.0) gm/dl Globulin 2.5 (2.5-4.0) gm/dl Albumin/Globulin Ratio 1.2 (0.9-2) Lipase 34 (11-82) U/L Ethyl Alcohol mg/dL < 10.0 (<10.0) mg/dl Blood Type O Positive Antibody Screen NEGATIVE Crossmatch See Detail 11/27/24 Range/Units 16:17 WBC (4.8-10.8) K/ul RBC (4.70-6.10) M/uL Hgb (14.0-18.0) g/dl POC Hgb (14.0-18.0) g/dl Hct (42.0-52.0) % POC Hct (42-52) % MCV (80.0-100.0) fL MCH (25.0-34.0) pg MCHC (32.0-36.0) g/dL RDW Std Deviation (36.4-46.3) fL RDW Coeff of Jourdan (11.5-14.5) % Plt Count (130-400) K/uL MPV (9.4-12.4) fL Immature Gran % (Auto) % Neut % (Auto) % Lymph % (Auto) % Schoolcraft % (Auto) % Eos % (Auto) % Baso % (Auto) % Neut # (Auto) (1.40-6.50) K/uL Lymph # (Auto) (1.20-3.40) K/uL Schoolcraft # (Auto) (0.11-0.59) K/uL Eos # (Auto) (0.00-0.50) K/uL Baso # (Auto) (0.00-0.20) K/uL Immature Gran # (Auto) (0.01-0.20) K/uL Absolute Nucleated RBC (0.00-0.12) K/uL Nucleated RBC % (auto) % Polychromasia Poikilocytosis Anisocytosis Microcytosis Ovalocytes PT (9.0-12.0) Seconds INR (0.9-1.1) APTT (21-31) Seconds PTT Ratio POC Sodium (135-144) mmol/L Sodium (136-145) mmol/L POC Potassium (3.3-5.0) mmol/L Potassium (3.5-5.1) mmol/L POC Chloride (101-112) mmol/L Chloride (98-107) mmol/L Carbon Dioxide (21-32) mmol/L POC Total CO2 (24-31) mmol/L Anion Gap (3-11) POC Anion Gap (16-25) mmol/L POC BUN (7-18) mg/dl BUN (6-23) mg/dl Creatinine (0.6-1.4) mg/dl POC Creatinine (0.6-1.3) mg/dl Est Cr Clr Drug Dosing ml/min eGFR BUN/Creatinine Ratio (10-20) Glucose (70-99(Fasting)) mg/dl POC Glucose (other) (70-99) mg/dl Calcium (8.6-10.3) mg/dl POC Ioniz Calcium Dorie (1.12-1.32) mmol/l Magnesium (1.7-2.4) mg/dl Total Bilirubin (0.2-1.0) mg/dl AST (13-39) U/L ALT (7-52) U/L Alkaline Phosphatase (34-104) U/L Troponin I High Sens 20.5 H (0-20) pg/ml Total Protein (6.0-8.3) gm/dl Albumin (3.4-5.0) gm/dl Globulin (2.5-4.0) gm/dl Albumin/Globulin Ratio (0.9-2) Lipase (11-82) U/L Ethyl Alcohol mg/dL (<10.0) mg/dl Blood Type Antibody Screen Crossmatch Administered Medications Hydromorphone HCl (Hydromorphone Inj 0.5 Mg/0.5 Ml Syr) 0.5 mg IV Q15M PRN PRN Reason: Pain Stop: 12/11/24 15:12 Last Admin: 11/27/24 15:29 Dose: 0.5 mg Documented By: EVA Sodium Chloride (Nss) 500 mls @ 999 mls/hr IV .Q31M ONE Stop: 11/27/24 17:37 Last Admin: 11/27/24 17:09 Dose: 999 mls/hr Documented By: EVA Discontinued Medications Thiamine HCl 200 mg/ Sodium (Chloride) 52 mls @ 210 mls/hr IV NOW STA Stop: 11/27/24 14:15 Last Infusion: 11/27/24 15:00 Dose: Infused Documented By: Admin: 11/27/24 14:43 Dose: 210 mls/hr Documented By: KAREN Pantoprazole Sodium (Protonix) 40 mg in 10 mls @ 5 mls/min IV NOW ONE Stop: 11/27/24 15:14 Last Admin: 11/27/24 15:29 Dose: 5 mls/min Documented By: EVA Sodium Chloride (Nss) 500 mls @ 999 mls/hr IV .Q31M ONE Stop: 11/27/24 15:43 Last Infusion: 11/27/24 16:35 Dose: Infused Documented By: Admin: 11/27/24 15:30 Dose: 999 mls/hr Documented By: EVA Sodium Chloride (Nss) 500 mls @ 999 mls/hr IV .Q31M ONE Stop: 11/27/24 15:46 Last Infusion: 11/27/24 16:35 Dose: Infused Documented By: Admin: 11/27/24 15:30 Dose: 999 mls/hr Documented By: EVA Ioversol (Optiray 320 125ml) 117 ml IV ONCE ONE Stop: 11/27/24 14:59 Last Admin: 11/27/24 14:59 Dose: 117 ml Documented By: LEÓN Ondansetron HCl (Ondansetron Inj 2 Mg/Ml 2 Ml Vial) 4 mg IV NOW STA Stop: 11/27/24 15:14 Last Admin: 11/27/24 15:29 Dose: 4 mg Documented By: EVA Imaging Data Attestation: I personally reviewed and interpreted this imaging study as follows: My Impression: CT of the chest was obtained in the emergency department. My interpretation is large right pleural effusion, final report below. CT of the abdomen and pelvis was obtained in the emergency department. My interpretation is ascites, no free air, final report below. Radiologist's Impression: Abdomen/Pelvis CT 11/27/24 14:09 EXAM: CT Abdomen and Pelvis With Intravenous Contrast INDICATION: Abdominal pain and diarrhea. TECHNIQUE: Axial computed tomography images of the abdomen and pelvis with intravenous contrast. Sagittal and coronal reformatted images were created and reviewed. This CT exam was performed using one or more of the following dose reduction techniques: automated exposure control, adjustment of the mA and/or kV according to patient size, and/or use of iterative reconstruction technique. CONTRAST: 117ml of Optiray 320 was administered intravenously. COMPARISON: 07/18/2024 FINDINGS: Limitations: None. Lung bases: There is airway thickening and atelectasis in the right middle and lower lobes. Pleural space: Small to moderate right pleural effusion layers posteriorly. No pneumothorax. Heart: No abnormality noted. Mediastinum: No abnormality noted. ABDOMEN: Liver: Significantly improved hypodensity of the liver which now is similar in density to the spleen. Smooth contour. No ductal dilatation or mass. Gallbladder and bile ducts: No calcified stones or surrounding fluid. Pancreas: Homogeneous enhancement. No mass, inflammation or ductal dilation. Spleen: Normal size. Adrenals: No significant abnormality noted. Kidneys and ureters: Bilateral renal scarring stable. Simple left renal cyst unchanged for which no further assessment required. No hydronephrosis or stone. Stomach and bowel: Scattered segments of thickened small bowel as well as the duodenal C-loop noted without obstruction. PELVIS: Appendix: No findings to suggest acute appendicitis. Bladder: No filling defects to suggest mass or large stone. No inflammation. Reproductive: No abnormalities noted. ABDOMEN and PELVIS: Intraperitoneal space: There is now a moderate amount of ascitic fluid throughout the abdomen and pelvis. No loculation. No free air. Bones/joints: No acute changes. Soft tissues: Bilateral inguinal hernias containing fat and ascites. Diffuse moderate body wall edema noted. Vasculature: Atherosclerotic calcification of the aorta and branches. No aneurysm. Lymph nodes: No pathologically enlarged lymph nodes. IMPRESSION: 1. Anasarca with moderate ascites and right pleural effusion. Impression duodenal and scattered segments of small bowel thickening. Consider gastroenteritis. Thickening secondary to chronic ascites is also considered. 2. Right middle and lower lobe bronchitis and atelectasis. ACT 112: Negative or not required by law. Electronically signed by Quiana Isidro 11-27-2024 3:41 PM Chest CTA 11/27/24 14:09 EXAM: CT Angiography Chest With Intravenous Contrast INDICATION: Upper abdominal pain and diarrhea. TECHNIQUE: Axial computed tomographic angiography images of the chest with intravenous contrast. Sagittal and coronal reformatted images were created and reviewed. This CT exam was performed using one or more of the following dose reduction techniques: automated exposure control, adjustment of the mA and/or kV according to patient size, and/or use of iterative reconstruction technique. MIP reconstructed images were created and reviewed. CONTRAST: 117 ml of Optiray 320 was administered intravenously. COMPARISON: 07/18/2024 FINDINGS: Pulmonary arteries: No abnormality noted. No pulmonary embolism. Aorta: No acute change noted. No thoracic aortic aneurysm or dissection. Superior mesenteric artery: There is predominantly soft plaque at the origin of the superior mesenteric artery with roughly 75% stenosis. Lungs and pleural spaces: There is a small to moderate layering right pleural effusion. Centrilobular emphysematous changes stable. Airway thickening and atelectasis noted in the right middle and lower lobes. No bronchiectasis or honeycombing. No pneumothorax. No mass. Heart: Cardiomegaly. Small pericardial effusion. No evidence of right heart strain. Bones/joints: No acute or atypical chronic changes. Soft tissues: No abnormality noted. Lymph nodes: No abnormality noted. No enlarged lymph nodes. Intraperitoneal space: Small amounts of free fluid noted in the upper abdomen. IMPRESSION: 1. No pulmonary embolus or aortic dissection. 2. Bronchitis and atelectasis in the right middle and lower lobes. 3. Small to moderate right pleural effusion. 4. Mild ascites. 5. 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 ACT 112: Negative or not required by law. Electronically signed by Quiana Isidro 11-27-2024 3:35 PM Discharge Plan Visit Data Chief Complaint: Abdominal Pain Stated Complaint: ABD PAIN ED Provider: Mario Randall Discharge Problem: Anemia, Alcohol abuse, Bed bug bite, Abdominal pain, GIB (gastrointestinal bleeding), Pleural effusion, Abdominal ascites, Hypoxia Patient Disposition: Being Evaluated by Hospitalist Forms Stand Alone Forms: [facility] Prescriptions Prescriptions: No Action magnesium oxide 400 mg (241.3 mg magnesium) Tablet 400 mg PO BID Qty: 60 0RF ferrous sulfate 325 mg (65 mg iron) Tablet,Delayed Release (Dr/Ec) 325 mg PO BIDM Qty: 60 0RF potassium chloride 10 mEq Tablet,Er Particles/Crystals 10 meq PO BID Qty: 60 0RF amoxicillin-pot clavulanate 875-125 mg tablet 1 tab PO BID Qty: 6 0RF diltiazem HCl [Cardizem LA] 180 mg tablet extended release 24 hr 180 mg PO DAILY Qty: 30 0RF folic acid 1 mg tablet 1 mg PO DAILY Qty: 30 0RF Referrals Referrals: PCP,NO [Primary Care Provider] - Discharge Problem: Anemia Qualifiers: Anemia type: unspecified type Qualified Code(s): D64.9 - Anemia, unspecified Bed bug bite Qualifiers: Encounter type: initial encounter Qualified Code(s): W57.XXXA - Bitten or stung by nonvenomous insect and other nonvenomous arthropods, initial encounter Abdominal pain Qualifiers: Abdominal location: generalized Qualified Code(s): R10.84 - Generalized abdominal pain GIB (gastrointestinal bleeding) Qualifiers: GI bleed type/associated pathology: unspecified gastrointestinal hemorrhage type Qualified Code(s): K92.2 - Gastrointestinal hemorrhage, unspecified Abdominal ascites Qualifiers: Ascites type: due to alcoholic cirrhosis Qualified Code(s): K70.31 - Alcoholic cirrhosis of liver with ascites
[2024-11-27] MEDS: THIAMINE HCL 200 MG in SODIUM CHLORIDE 0.9% 50 ML IV STA (14:43)
[2024-11-27 14:52] LABS: Hematocrit (blood only) 23.7 % (42.0-52.0); Hemoglobin 5.8 g/dl (14.0-18.0); Mean Corpuscular Hemoglobin 15.7 pg (25.0-34.0); Mean Corpuscular Hgb Conc 24.5 g/dL (32.0-36.0); Mean Corpuscular Volume 64.2 fL (80.0-100.0); Mean Platelet Volume 9.6 fL (9.4-12.4); Nucleated RBC # (auto) 1.04 K/uL (0.00-0.12); Nucleated RBC % (auto) 42.3 %; Platelet Count 540 K/uL (130-400); RDW Coefficient of Variation 26.3 % (11.5-14.5); RDW Standard Deviation 55.1 fL (36.4-46.3); Red Blood Count 3.69 M/uL (4.70-6.10); White Blood Count 2.46 K/ul (4.8-10.8)
[2024-11-27] MEDS: OPTIRAY 320 125ml IV ONE (14:59)
[2024-11-27 15:03] LABS: Alanine Aminotransferase 58 U/L (7-52); Albumin Globulin Ratio 1.2 (0.9-2); Alkaline Phosphatase 67 U/L (34-104); Anion Gap 9 (3-11); Aspartate Aminotransferase 14 U/L (13-39); BUN Creatinine Ratio 35.5 (10-20); Bilirubin,Total 1.2 mg/dl (0.2-1.0); Blood Urea Nitrogen 33 mg/dl (6-23); Carbon Dioxide 22 mmol/L (21-32); Chloride 115 mmol/L (98-107); Creatinine Clr Calc Pharmacy 78.5 ml/min; Globulin 2.5 gm/dl (2.5-4.0); Glucose 128 mg/dl (70-99(Fasting)); Lipase 34 U/L (11-82); Magnesium 1.9 mg/dl (1.7-2.4); Potassium 3.8 mmol/L (3.5-5.1); Sodium 146 mmol/L (136-145); Total Protein 5.5 gm/dl (6.0-8.3)
[2024-11-27 15:09] LABS: Troponin I High Sensitivity 20.7 pg/ml (0-20)
[2024-11-27] MEDS ORDERED: SODIUM CHLORIDE 0.9% 50 ML IV PRN (15:13)
[2024-11-27] MEDS ORDERED: SODIUM CHLORIDE 0.9% 100 ML IV PRN (15:13)
[2024-11-27 15:17] LABS: Anisocytosis Present; Basophils # (auto) 0.01 K/uL (0.00-0.20); Basophils % (auto) 0.4 %; INR 1.4 (0.9-1.1); Immature Granulocytes # (auto) 0.01 K/uL (0.01-0.20); Immature Granulocytes % (auto) 0.4 %; Lymphocytes # (auto) 0.29 K/uL (1.20-3.40); Lymphocytes % (auto) 11.8 %; Microcytosis Present; Monocytes % (auto) 4.1 %; Neutrophils # (auto) 2.05 K/uL (1.40-6.50); Neutrophils % (auto) 83.3 %; Ovalocytes 1+; Partial Thromboplastin Ratio 0.8; Partial Thromboplastin Time 21 Seconds (21-31); Poikilocytosis Present; Polychromasia 1+; Prothrombin Time 14.9 Seconds (9.0-12.0)
[2024-11-27] MEDS: ONDANSETRON INJ 2 MG/ML 2 ML VIAL IV STA (15:29)
[2024-11-27] MEDS: HYDROmorphone INJ 0.5 MG/0.5 ML SYR IV PRN (15:29)
[2024-11-27] MEDS: PANTOprazole 40 MG/10 ML SYR IV ONE (15:29)
[2024-11-27] MEDS: SODIUM CHLORIDE 0.9% 500 ML IV ONE ×4 (15:30→18:50)
--- NOTE | 2024-11-27 15:40 | CT Scan Report ---
EXAM: CT Angiography Chest With Intravenous Contrast INDICATION: Upper abdominal pain and diarrhea. TECHNIQUE: Axial computed tomographic angiography images of the chest with intravenous contrast. Sagittal and coronal reformatted images were created and reviewed. This CT exam was performed using one or more of the following dose reduction techniques: automated exposure control, adjustment of the mA and/or kV according to patient size, and/or use of iterative reconstruction technique. MIP reconstructed images were created and reviewed. CONTRAST: 117 ml of Optiray 320 was administered intravenously. COMPARISON: 07/18/2024 FINDINGS: Pulmonary arteries: No abnormality noted. No pulmonary embolism. Aorta: No acute change noted. No thoracic aortic aneurysm or dissection. Superior mesenteric artery: There is predominantly soft plaque at the origin of the superior mesenteric artery with roughly 75% stenosis. Lungs and pleural spaces: There is a small to moderate layering right pleural effusion. Centrilobular emphysematous changes stable. Airway thickening and atelectasis noted in the right middle and lower lobes. No bronchiectasis or honeycombing. No pneumothorax. No mass. Heart: Cardiomegaly. Small pericardial effusion. No evidence of right heart strain. Bones/joints: No acute or atypical chronic changes. Soft tissues: No abnormality noted. Lymph nodes: No abnormality noted. No enlarged lymph nodes. Intraperitoneal space: Small amounts of free fluid noted in the upper abdomen. IMPRESSION: 1. No pulmonary embolus or aortic dissection. 2. Bronchitis and atelectasis in the right middle and lower lobes. 3. Small to moderate right pleural effusion. 4. Mild ascites. 5. 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 ACT 112: Negative or not required by law. Electronically signed by Quiana Isidro 11-27-2024 3:35 PM
--- NOTE | 2024-11-27 15:41 | CT Scan Report ---
EXAM: CT Abdomen and Pelvis With Intravenous Contrast INDICATION: Abdominal pain and diarrhea. TECHNIQUE: Axial computed tomography images of the abdomen and pelvis with intravenous contrast. Sagittal and coronal reformatted images were created and reviewed. This CT exam was performed using one or more of the following dose reduction techniques: automated exposure control, adjustment of the mA and/or kV according to patient size, and/or use of iterative reconstruction technique. CONTRAST: 117ml of Optiray 320 was administered intravenously. COMPARISON: 07/18/2024 FINDINGS: Limitations: None. Lung bases: There is airway thickening and atelectasis in the right middle and lower lobes. Pleural space: Small to moderate right pleural effusion layers posteriorly. No pneumothorax. Heart: No abnormality noted. Mediastinum: No abnormality noted. ABDOMEN: Liver: Significantly improved hypodensity of the liver which now is similar in density to the spleen. Smooth contour. No ductal dilatation or mass. Gallbladder and bile ducts: No calcified stones or surrounding fluid. Pancreas: Homogeneous enhancement. No mass, inflammation or ductal dilation. Spleen: Normal size. Adrenals: No significant abnormality noted. Kidneys and ureters: Bilateral renal scarring stable. Simple left renal cyst unchanged for which no further assessment required. No hydronephrosis or stone. Stomach and bowel: Scattered segments of thickened small bowel as well as the duodenal C-loop noted without obstruction. PELVIS: Appendix: No findings to suggest acute appendicitis. Bladder: No filling defects to suggest mass or large stone. No inflammation. Reproductive: No abnormalities noted. ABDOMEN and PELVIS: Intraperitoneal space: There is now a moderate amount of ascitic fluid throughout the abdomen and pelvis. No loculation. No free air. Bones/joints: No acute changes. Soft tissues: Bilateral inguinal hernias containing fat and ascites. Diffuse moderate body wall edema noted. Vasculature: Atherosclerotic calcification of the aorta and branches. No aneurysm. Lymph nodes: No pathologically enlarged lymph nodes. IMPRESSION: 1. Anasarca with moderate ascites and right pleural effusion. Impression duodenal and scattered segments of small bowel thickening. Consider gastroenteritis. Thickening secondary to chronic ascites is also considered. 2. Right middle and lower lobe bronchitis and atelectasis. ACT 112: Negative or not required by law. Electronically signed by Quiana Isidro 11-27-2024 3:41 PM
[2024-11-27 17:07] LABS: iSTAT Hemoglobin 8.5 g/dl (14.0-18.0); iSTAT Ionized Calcium 1.17 mmol/l (1.12-1.32); iSTAT Potassium 3.7 mmol/L (3.3-5.0)
--- NOTE | 2024-11-27 18:00 | History & Physical Report ---
Date of Service November 27, 2024 Assessment & Plan (1) Anemia: (2) GIB (gastrointestinal bleeding): (3) Alcohol abuse: (4) Abdominal ascites: Plan This patient is a 64-year-old male with a history of alcohol use disorder, severe anemia, bedbug infestation, COPD, and SVT who does not follow regularly with a physician who presents via ambulance with abdominal pain. The prehospital personnel noted that the patient was lying in filthy clothing with diarrhea around him likely for days and there were bedbugs infested throughout the house. The patient denies N/V, but reports he has had very poor appetite for a couple of weeks. His abdominal pain is mostly mid and left sided and is mild in nature. He denies any blood in the stool or black tarry stools. He reports being extremely weak and lightheaded and he called 911. He was found to have brown stool but it was heme positive on exam. He had severe anemia with a hemoglobin of 5.8. He had hypernatremia, mild non anion gap metabolic acidosis, mildly elevated LFTs, mildly elevated troponin, was hypotensive and tachycardic. His alcohol level was undetectable and he reports that he is only been drinking 1 beer a day for the last couple of months. 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 A CT abdomen/pelvis showed moderate ascites, moderate body wall edema, bilateral inguinal hernias and scattered small bowel thickening consistent with gastroenteritis or secondary to chronic ascites. In the ER, he was given IV fluid resuscitation, IV Protonix, IV thiamine, and started on a blood transfusion. #Abdominal pain/diarrhea/dehydration/mesenteric artery stenosis/ascites Likely secondary to ascites, enteritis, not likely due to mesenteric artery stenosis of the SMA. Pain is not severe, no leukocytosis, fever, low suspicion for SBP but is possible. Could be infectious diarrhea versus loose stools from poor absorption from gut wall edema from anasarca. With hypotension and tachycardia-intravascularly volume depleted despite anasarca -Admit to telemetry for arrhythmia monitoring given dehydration and SVT -Consult gastroenterology for severe anemia and heme positive stool-will keep n. p.o. after midnight in case of need for EGD on Thursday -Check stool PCR and C. difficile -Give gentle normal saline bolus, albumin low-consider IV albumin if persistent hypotension -Will order for paracentesis on Thursday for diagnostic purposes given new onset ascites in the absence of cirrhosis and treat empirically for SBP with ceftriaxone and add Flagyl in case of infectious enteritis as well -Follow CBC, CMP, magnesium #Severe anemia/Hemoccult positive stool Hemoglobin has been as low as 4.1 in 06/2024 and he was admitted that time for blood and iron transfusions. He has not had a GI evaluation. Hemoglobin here low at 5.8 and Hemoccult positive stool but no gross melena or hematochezia. He is an alcohol abuser and could very well have PUD versus gastritis. Could have GI malignancy as well. No obvious tumor or bleeding on CT A/P. He could also have anemia from chronic bedbug bites WBC count low and platelets elevated in the 500s secondary to reactive thrombocytosis. Severely microcytic with MCV 64-iron panel shows severe iron deficiency -Transfused 2 units PRBCs in the ER, transfuse further to get hemoglobin above 7 -Follow CBC in the morning after 2 units transfused -Consult GI for possible EGD and will keep n.p.o. after midnight -Consider IV iron infusions after PRBC transfusion completed -Check folate, B12 in the morning as well #Alcohol use disorder/elevated LFTs/ascites Previously drank 1/5 of liquor every day but now states that he is only drinking 1 beer per day-unclear if this is true. Denies history of previous withdrawal or seizures. LFTs mildly elevated here and with moderate ascites which is new. No obvious cirrhosis on CT A/P. -Consult to GI appreciated, paracentesis to be performed -AWSS protocol and IV Ativan as needed withdrawal -Start multivitamin, p.o. thiamine and folate daily and encourage cessation #Pleural effusions/acute respiratory failure with hypoxemia/COPD/current smoker Pleural effusions likely secondary to hypoalbuminemia and possibly cirrhosis. Requiring 3L NC O2 here but also with known COPD and chronic cough, not currently on maintenance inhalers -Start Incruse Ellipta, give Xopenex nebs as needed given paroxysmal SVT -Continue supplemental O2 to keep pulse ox greater than 90% -Cannot give diuresis at this time due to hypotension and volume depletion intravascularly -Encourage smoking cessation #Paroxysmal SVT With a history of such during previous admission and was started on diltiazem however he never filled this after discharge. -Give 1 g IV magnesium to keep magnesium optimal at 2.0 -Giving volume resuscitation and IV albumin, add on IV Lopressor low-dose if needed for persistent tachycardia -Treating possible underlying infection as above -Monitor on telemetry #Bedbug infestation-decontaminated in the ER DVT prophylaxis-SCDs only due to heme positive stool and severe anemia Disposition-admit to PCU, will need to get established with PCP after discharge. History of Present Illness Chief Complaint: Abdominal pain, diarrhea Primary Care Provider: NO PCP This patient is a 64-year-old male with a history of alcohol use disorder, severe anemia, bedbug infestation, COPD, and SVT who does not follow regularly with a physician who presents via ambulance with abdominal pain. The prehospital personnel noted that the patient was lying in filthy clothing with diarrhea around him likely for days and there were bedbugs infested throughout the house. The patient denies N/V, but reports he has had very poor appetite for a couple of weeks. His abdominal pain is mostly mid and left sided and is mild in nature. He denies any blood in the stool or black tarry stools. He reports being extremely weak and lightheaded and he called 911. In the ER, he was found to have brown stool but it was heme positive on exam. He had severe anemia with a hemoglobin of 5.8. He had hypernatremia, mild non anion gap metabolic acidosis, mildly elevated LFTs, mildly elevated troponin, was hypotensive and tachycardic. His alcohol level was undetectable and he reports that he is only been drinking 1 beer a day for the last couple of months. 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 A CT abdomen/pelvis showed moderate ascites, moderate body wall edema, bilateral inguinal hernias and scattered small bowel thickening consistent with gastroenteritis or secondary to chronic ascites. In the ER, he was given IV fluid resuscitation, IV Protonix, IV thiamine, and started on a blood transfusion. Allergies Allergy/AdvReac Type Severity Reaction Status Date / Time No Known Drug Allergies Allergy Unknown Verified 07/19/24 18:46 Past Med/Surg History Problem List (Updated 11/27/24 @ 16:16 by Mario Randall DO) Hypoxia (Acute) Abdominal ascites (Acute) Pleural effusion (Acute) GIB (gastrointestinal bleeding) (Acute) Abdominal pain (Acute) Anemia (Acute) PSVT (paroxysmal supraventricular tachycardia) Aspiration into lower respiratory tract Symptomatic anemia (Acute) Bed bug bite (Acute) Alcohol abuse (Acute) Transaminitis Rhabdomyolysis (Acute) Hypotension Troponin I above reference range (Acute) Bedbug bite Alcohol abuse Syncope (Acute) Medical History COPD (chronic obstructive pulmonary disease) Macrocytic anemia Coagulopathy Anemia Alcohol dependence Social History Smoking Status: Current every day smoker Tobacco Type: Cigarettes Cigarettes Per Day: 20; Do You Dip or Chew Tobacco: No; Hx Alcohol Use: Yes Alcohol type: hard liquor Hx Substance Use: No (unknown) Preferred Language: Mohawk Communication Ability: Unable Beliefs That Will Affect Care: None Current Living Situation: Other Current Living Situation Comment: pt states lives in home with roommate provided by [employer] Feels Safe at Home: Yes Assistive Devices: None Review of Systems Review of Systems: All systems reviewed & are unremarkable except as noted in HPI & below Physical Exam Constitutional: + ill appearing and + disheveled Eyes: + anicteric sclerae Neck: trachea midline, no thyromegaly Respiratory: normal respiratory effort and + cough (Frequent) Auscultation: + diminished lung sounds (At bases bilaterally); no crackles, no rhonchi and no wheezes Cardiovascular: Rate/Rhythm: regular rhythm and + tachycardic Heart Sounds: no murmur Extremities: + edema (2+ pitting edema bilateral LEs to the abdomen, 1+ edema hands and arms) Gastrointestinal (Abdomen): Inspection/Auscultation: abdomen normal to inspection, normal bowel sounds and + abdominal edema (Pitting edema of abdomen) Percussion/Palpation: abdomen soft; abdomen nontender and no guarding Musculoskeletal: Extremities: no cyanosis Skin: Multiple 2 to 3 mm circular scabs on arms, legs, scalp and sides of face Erythema in groin folds Neurologic: moves all extremities and awake; no focal motor deficits Psychiatric: Orientation: oriented x 3 and cooperative; + not alert (Drowsy after receiving Dilaudid but wakes up easily) Genitourinary: no penis abnormality and no scrotum abnormality Results & Data Results & Data Vital Signs (Past 12 Hours) Vital Signs Temp Pulse Resp BP Pulse Ox O2 Del Method O2 Flow Rate 11/27/24 17:45 145 H 18 112/54 L 100 Nasal Cannula 3 11/27/24 17:36 146 H 10 L 90/74 L 100 Nasal Cannula 3 11/27/24 17:30 36.5 C 148 H 16 90/74 L 100 3 11/27/24 17:15 149 H 16 116/64 100 3 11/27/24 17:00 36.6 C 93 H 10 L 83/43 L 99 3 11/27/24 16:45 36.6 C 106 H 20 86/54 L 100 3 11/27/24 16:30 147 H 28 H 78/53 L 93 11/27/24 16:25 36.6 C 146 H 26 H 105/63 94 3 11/27/24 16:21 148 H 32 H 95 11/27/24 16:12 148 H 30 H 105/63 98 11/27/24 16:09 148 H 32 H 99 11/27/24 16:00 148 H 32 H 124/76 99 11/27/24 16:00 124/76 11/27/24 15:57 149 H 40 H 94 11/27/24 15:51 152 H 33 H 95 11/27/24 15:51 86 L Room Air 0 11/27/24 15:30 150 H 22 123/74 94 11/27/24 15:24 155 H 25 H 94 11/27/24 15:18 152 H 28 H 95 11/27/24 15:06 151 H 22 96 11/27/24 14:45 97 H 22 99 11/27/24 14:13 99 Room Air 11/27/24 14:13 36.5 C 108 H 23 110/55 L 99 Room Air 11/27/24 14:08 111 H Laboratory Results CBC, CMP, troponin, coags, ionized calcium, magnesium, lipase, alcohol level reviewed Diagnostic Findings CT A/P, CTA chest reviewed ECG Additional Comments: ECG on 11/27/2024 at 1413 with sinus tachycardia, rate 105, flattening of T waves in lateral leads which is slightly different from previous Telemetry with SVT in the 140s briefly while I was seeing him Code Status & VTE Plan Code Status DNR/DNI VTE Prophylaxis Plan VTE Prophylaxis will be ordered: Yes PG Care Time/CCT Total # of Minutes Spent Total Time Spent with Patient: Total time spent is greater than 50% in coordination of care (as documented) at patient's floor/unit and/or counseling patient: Coding Level of Care Code 55595 INT INP/OBS CARE 3/75MIN Diagnoses Anemia D64.9 Anemia type: unspecified type GIB (gastrointestinal bleeding) K92.2 GI bleed type/associated pathology: unspecified gastrointestinal hemorrhage type Alcohol abuse F10.10 Abdominal ascites K70.31 Ascites type: due to alcoholic cirrhosis (1) Anemia Anemia type: unspecified type Qualified Code(s): D64.9 - Anemia, unspecified (2) GIB (gastrointestinal bleeding) GI bleed type/associated pathology: unspecified gastrointestinal hemorrhage type Qualified Code(s): K92.2 - Gastrointestinal hemorrhage, unspecified (4) Abdominal ascites Ascites type: due to alcoholic cirrhosis Qualified Code(s): K70.31 - Alcoholic cirrhosis of liver with ascites
[2024-11-27 18:33] LABS: Iron < 10 mcg/dl (35-175); Total Iron Binding Cap Calc 477 mcg/dl (250-450); Transferrin 341 mg/dl (200-360)
[2024-11-27] MEDS ORDERED: ONDANSETRON INJ 2 MG/ML 2 ML VIAL IV PRN (19:22)
[2024-11-27] MEDS ORDERED: ACETAMINOPHEN 325 MG TAB PO PRN (19:22)
[2024-11-27] MEDS: PANTOprazole 40 MG/10 ML SYR IV SCH (20:19)
[2024-11-27] MEDS: ALBUMIN 25% 25 GM/100 ML VIAL IV SCH (20:20)
[2024-11-27] MEDS ORDERED: LEVALBUTEROL HCL 0.63 MG/3 ML NEB NEB PRN (20:25)
[2024-11-27] MEDS: cefTRIAXone SODIUM 2,000 MG/50 ML BAG IV SCH (22:20)
[2024-11-27] MEDS: metroNIDAZOLE 500 MG/100 ML BAG IV SCH (22:25)
[2024-11-27] MEDS: MAGNESIUM SULFATE / D5W 1 GM/100 ML BAG IV ONE (23:11)
[2024-11-27 23:16] LABS: Hematocrit (blood only) 28.5 % (42.0-52.0); Hemoglobin 7.6 g/dl (14.0-18.0); Mean Corpuscular Hgb Conc 26.7 g/dL (32.0-36.0); Mean Corpuscular Volume 71.4 fL (80.0-100.0); Mean Platelet Volume 9.2 fL (9.4-12.4); Nucleated RBC # (auto) 1.08 K/uL (0.00-0.12); Nucleated RBC % (auto) 26.5 %; Platelet Count 331 K/uL (130-400); RDW Coefficient of Variation 29.2 % (11.5-14.5); RDW Standard Deviation 70.7 fL (36.4-46.3); Red Blood Count 3.99 M/uL (4.70-6.10); White Blood Count 4.08 K/ul (4.8-10.8)
[2024-11-27] MEDS: METOPROLOL TARTRATE 1 MG/ML VIAL IV STA (23:40)
[2024-11-28 01:31] LABS: Adenovirus PCR Not Detected (NotDetected); Bordetella parapertussis PCR Not Detected (NotDetected); Bordetella pertussis PCR Not Detected (NotDetected); Chlamydia pneumoniae PCR Not Detected (NotDetected); Coronavirus 229E PCR Not Detected (NotDetected); Coronavirus CoV-2 (COVID19)PCR Not Detected (NotDetected); Coronavirus HKU1 PCR Not Detected (NotDetected); Coronavirus NL63 PCR Not Detected (NotDetected); Coronavirus OC43PCR Not Detected (NotDetected); Human Metapneumovirus PCR Not Detected (NotDetected); Influenza A PCR Not Detected (NotDetected); Influenza B PCR Not Detected (NotDetected); Mycoplasma pneumoniae PCR Not Detected (NotDetected); Parainfluenza Virus 1 PCR Not Detected (NotDetected); Parainfluenza Virus 2 PCR Not Detected (NotDetected); Parainfluenza Virus 3 PCR Not Detected (NotDetected); Parainfluenza Virus 4 PCR Not Detected (NotDetected); Respiratory Syncytial VirusPCR Not Detected (NotDetected); Rhinovirus/Enterovirus PCR Not Detected (NotDetected)
[2024-11-28 01:45] LABS: Appearance Urine Clear (Clear); Bacteria Urine Automated None Seen (None Seen); Bilirubin Urine Negative (Negative); Blood Urine Negative (Negative); Color Urine Yellow; Epithelial Cell Urine Auto 0-2 /hpf (0-2); Glucose Urine UA Negative (Negative); Ketones Urine Trace (Negative); Leukocyte Esterase Urine Negative (Negative); Nitrite Urine Negative (Negative); Protein Urine 1+ (Negative); RBC Urine Automated 0-2 /hpf (0-2); Urobilinogen Urine Negative (Negative); WBC Urine Automated 0-5 /hpf (0-5); pH Urine 5.5 (4.5-7.5)
[2024-11-28] MEDS: SODIUM CHLORIDE 0.9% 250 ML IV ONE (02:53)
[2024-11-28] MEDS: ALBUMIN 25% 25 GM/100 ML VIAL IV SCH ×2 (02:53→20:00)
[2024-11-28 06:27] LABS: Hemoglobin 6.8 g/dl (14.0-18.0); Mean Corpuscular Hemoglobin 19.4 pg (25.0-34.0); Mean Corpuscular Hgb Conc 27.2 g/dL (32.0-36.0); Mean Corpuscular Volume 71.4 fL (80.0-100.0); Mean Platelet Volume 9.4 fL (9.4-12.4); Nucleated RBC # (auto) 0.73 K/uL (0.00-0.12); Nucleated RBC % (auto) 11.8 %; Platelet Count 280 K/uL (130-400); RDW Coefficient of Variation 28.5 % (11.5-14.5); RDW Standard Deviation 68.7 fL (36.4-46.3); White Blood Count 6.18 K/ul (4.8-10.8)
[2024-11-28] MEDS ORDERED: SODIUM CHLORIDE 0.9% 100 ML IV PRN ×3 (06:30→09:00)
[2024-11-28] MEDS ORDERED: SODIUM CHLORIDE 0.9% 50 ML IV PRN ×3 (06:30→09:00)
[2024-11-28 06:49] LABS: Albumin Globulin Ratio 2.1 (0.9-2); Albumin Level 3.6 gm/dl (3.4-5.0); BUN Creatinine Ratio 28.7 (10-20); Bilirubin,Total 2.1 mg/dl (0.2-1.0); Calcium 7.9 mg/dl (8.6-10.3); Creatinine Clr Calc Pharmacy 59.1 ml/min; Globulin 1.7 gm/dl (2.5-4.0); Magnesium 2.1 mg/dl (1.7-2.4); Potassium 3.8 mmol/L (3.5-5.1); Total Protein 5.3 gm/dl (6.0-8.3)
[2024-11-28 06:55] LABS: INR 1.6 (0.9-1.1); Prothrombin Time 16.8 Seconds (9.0-12.0)
[2024-11-28 07:03] LABS: Folate (Folic Acid),Ser orPlas 6.95 ng/ml (>5.38)
[2024-11-28 07:25] LABS: ANC (manual) 4.64 K/uL (1.4-6.5); Anisocytosis Present; Basophils # (manual) 0.06 K/uL (0-0.2); Basophils % (manual) 1 %; Hypochromasia Present; Lymphocytes % (manual) 13 %; Metamyelocytes # (manual) 0.43 K/uL (0-0); Metamyelocytes % (manual) 7 %; Microcytosis Present; Monocytes # (manual) 0.19 K/uL (0.11-0.59); Monocytes % (manual) 3 %; Myelocytes # (manual) 0.06 K/uL (0-0); Myelocytes % (manual) 1 %; Neutrophils # (manual) 4.64 K/uL (1.40-6.50); Neutrophils % (manual) 75 %; Ovalocytes 1+; Polychromasia 1+; Tear Drop Cells 1+; Toxic Vacuolation 1+
[2024-11-28] MEDS: UMECLIDINIUM BROMIDE 62.5MCG/BLISTER 7 PUFFS/INHALER INH SCH (08:25)
[2024-11-28] MEDS: FOLIC ACID 1 MG TAB PO SCH (08:25)
[2024-11-28] MEDS: THIAMINE HCL 100 MG TAB PO SCH (08:25)
[2024-11-28] MEDS: MULTIVITAMIN TAB PO SCH (08:25)
--- NOTE | 2024-11-28 09:13 | Electrocardiogram Report ---
Test Reason : Blood Pressure : */* mmHG Vent. Rate : 105 BPM Atrial Rate : 105 BPM P-R Int : 168 ms QRS Dur : 76 ms QT Int : 312 ms P-R-T Axes : * 79 139 degrees QTcB Int : 412 ms Sinus tachycardia Nonspecific ST and T wave abnormality Abnormal ECG When compared with ECG of 22-Jul-2024 15:59, Nonspecific T wave abnormality, worse in Inferior leads Nonspecific T wave abnormality now evident in Anterior leads Confirmed by Jacqueline Marshall (Diana) on 11/28/2024 9:12:56 AM Referred By: REFERRED SELF Confirmed By: Jacqueline Marshall
[2024-11-28] MEDS: CALCIUM GLUCONATE 1,000 MG/60 ML BAG IV ONE (10:24)
[2024-11-28 10:31] LABS: Albumin Peritoneal Fluid < 1.5 gm/dl
[2024-11-28 10:36] LABS: LDH Peritoneal Fluid 501 U/L; Total Protein Peritoneal Fluid < 3.0 gm/dl
[2024-11-28 10:40] LABS: Appearance Peritoneal Fluid Turbid; Color Peritoneal Fluid Yellow; RBC Peritoneal Fluid Auto 2000 /uL; WBC Peritoneal Fluid Auto 14635 /ul (0-300)
[2024-11-28 11:06] LABS: Lymphocytes, Fluid 1 %; Mono,Macrophage,Mesothelial 1 %; Neutrophils, Fluid 98 %
[2024-11-28] MEDS: SODIUM CHLORIDE 0.9% 1,000 ML IV ONE (12:25)
--- NOTE | 2024-11-28 12:25 | Gastrointestinal Consultation ---
Date of Consultation November 28, 2024 Assessment & Plan (1) Anemia: -Continue to monitor H/H. -Treatment of anemia per primary team. -Continue to monitor for overt GI bleeding -Continue to optimize from pulm standpoint and plan for eventual endoscopic evaluation when able. Can have diet today if no other plans from other services. Supervising Physician Co-Signing Physician Notes Severe iron deficiency no active GI hemorrhage. Patient receiving blood transfusions and iron. Similar episode about a year ago I do not believe he had endoscopic evaluation. Patient would benefit from that once stabilized. Patient also has ascites and abdominal tenderness. Potential SBP. Paracentesis results not available. He is covered with ceftriaxone at present.. Patient has a history of nicotine and alcohol abuse. Was found at home in feces and bedbugs. He has normal platelets and a normal INR. Suspect that he does not have cirrhosis of the liver however he does have ascites which could be nutritional. Cardiac ascites also could be considered. Analyze ascitic fluid results when available. Patient is currently NPO. I think he can have liquids we will keep him n.p.o. after midnight in case there is evidence of hemorrhage or persistent following H&H which case he might benefit from EGD pulmonary and respiratory status allowing. Agree with nurse practitioners assessment History of Present Illness Reason for Consultation: Anemia Attending Physician: Oswald Hough, DO History of Present Illness Patient is a 64 yo male with alcohol abuse, severe anemia, COPD, SVT, and bedbug infestation. He presented via ambulance to the ED due to abdominal pain. He was reportedly found lying in feces and bedbugs were throughout the house. He is a poor historian. He notes that he has had a bad appetite for several weeks and noticed LLQ pain. No GI bleeding. He had a hemoglobin of 5.8 upon presentation to the ED. H/H now 6.8/25.0. He is being transfused supportively. He had heme positive stool in the ED. He was hypernatremic with mild non anion gap metabolic acidosis, elevated LFTs, elevated troponin, hypotension and tachycardia. Alcohol level negative. He notes he has been drinking 1 beer per day for months at this point. 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 CT abdomen/pelvis indicated moderate ascites, moderate body wall edema, bilateral inguinal hernias and scattered small bowel thickening consistent with gastroenteritis vs chronic ascites. CT abdomen showed a smooth contour of the liver without notable ascites. He has been initiated on IV Thiamine in the ED with daily supplementation thereafter. INR 1.6. He underwent an US paracentesis this AM and results are pending from that. Patient decontaminated in the ED due to bed bugs. Patient notes to me that he is feeling very short of breath and has a cough that is persistent. He is currently on 2L O2 via NC saturating at 100%. 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: No Beliefs That Will Affect Care: None Current Living Situation: Other Current Living Situation Comment: with a friend/owner/operator of home Other Information That Helps Us Care for You: No Feels Safe at Home: Yes Safety Concerns: Feels Safe At This Time Assistive Devices: None Review of Systems Constitutional: no fever and no chills Gastrointestinal: no abdominal pain Psychiatric: + substance abuse Physical Exam Constitutional: well developed Respiratory: coughing throughout exam Gastrointestinal (Abdomen): Inspection/Auscultation: + abdomen distended and normal bowel sounds Percussion/Palpation: + abdomen tender Psychiatric: Orientation: alert and oriented x 3 Results & Data Vital Signs (Past 12 Hours) Vital Signs Temp Pulse Pulse Resp BP BP BP 11/28/24 11:06 37 C 130 H 16 88/52 L 11/28/24 10:37 36.8 C 129 H 18 86/49 L 11/28/24 07:40 36.9 C 132 H 18 91/57 L 11/28/24 06:03 140 H 11/28/24 05:00 11/28/24 03:00 36.3 C L 131 H 16 96/66 L 11/28/24 01:28 99/67 L 12/30/24 01:05 11/28/24 00:51 84/57 L 11/28/24 00:24 79/51 L 11/27/24 23:59 127 H 88/60 L 11/27/24 23:50 90/57 L 92/63 L 11/27/24 23:35 108/71 11/27/24 23:22 Pulse Ox Pulse Ox O2 Del Method O2 Del Method O2 Flow Rate O2 Flow Rate 11/28/24 11:06 96 11/28/24 10:37 97 2 11/28/24 07:40 96 Nasal Cannula 2.0 11/28/24 06:03 11/28/24 05:00 96 Nasal Cannula 2 11/28/24 03:00 11/28/24 01:28 11/28/24 01:05 97 Oxymask 2 11/28/24 00:51 11/28/24 00:24 11/27/24 23:59 11/27/24 23:50 11/27/24 23:35 11/27/24 23:22 Nasal Cannula 2 PG Care Time/CCT Total # of Minutes Spent Total Time Spent with Patient: Total time spent is greater than 50% in coordination of care (as documented) at patient's floor/unit and/or counseling patient: Coding Level of Care Code 06447 IN/OBS CONSULT LVL 4,60M Diagnoses Anemia D64.9 Anemia type: unspecified type (1) Anemia Anemia type: unspecified type Qualified Code(s): D64.9 - Anemia, unspecified
--- NOTE | 2024-11-28 12:40 | Hospitalist Progress Note ---
Date of Service November 28, 2024 Assessment & Plan (1) Anemia: (2) GIB (gastrointestinal bleeding): (3) Alcohol abuse: (4) Abdominal ascites: (5) History of Clostridioides difficile infection: Plan SBP/Ascites/Hx of C. diff - Pain not severe, no leukocytosis initially, now WBC: 12.70 - Hypotensive with tachycardia, BP steady but soft after 3rd unit of PRBC and 1L NSS bolus; 99/61 - CT abdomen/pelvis showed moderate ascites, moderate body wall edema, potential gastritis vs chronic ascites - GI consult placed, recs appreciated - IV protonix, IV thiamine - Vancomycin prophylaxis pre-treat for C.diff coverage - IV Ceftriaxone, IV Metronidazole for SBP coverage - random cortisol, EKG, albumin ordered for potential hepatorenal syndrome - CBC/CMP/Mg QAM Severe anemia/Hemoccult positive stool - Hemoglobin has been as low as 4.1 in 06/2024 admitted for blood and iron transfusions - GI consult placed, overt GI bleed unlikely - Hemoccult stool pending, no gross melena or hematochezia. - No obvious bleeding on CT AP, potential anemia from chronic bedbug bites - 3 units PRBC given since admit, Hgb: 8.2 - Severe iron deficiency anemia, consider iron infusions - Folate/B12 wnl - CBC QAM, transfuse <7 #Alcohol use disorder/elevated LFTs Previously drank 1/5 of liquor every day but now states that he is only drinking 1 beer per day-unclear if this is true. Denies history of previous withdrawal or seizures. LFTs mildly elevated here and with moderate ascites which is new. -AWSS protocol and IV Ativan as needed withdrawal #Pleural effusions/acute respiratory failure with hypoxemia/COPD/current smoker Pleural effusions likely secondary to hypoalbuminemia and possibly cirrhosis. Requiring 3L NC O2 here but also with known COPD and chronic cough, not currently on maintenance inhalers -Start Incruse Ellipta, give Xopenex nebs as needed given paroxysmal SVT -Continue supplemental O2 to keep pulse ox greater than 90% -Cannot give diuresis at this time due to hypotension and volume depletion intravascularly -Encourage smoking cessation #Paroxysmal SVT With a history of such during previous admission and was started on diltiazem however he never filled this after discharge. -Give 1 g IV magnesium to keep magnesium optimal at 2.0 -Giving volume resuscitation and IV albumin, add on IV Lopressor low-dose if needed for persistent tachycardia -Treating possible underlying infection as above -Monitor on telemetry #Bedbug infestation-decontaminated in the ER DVT prophylaxis-SCDs only due to heme positive stool and severe anemia Disposition-admit to PCU, will need to get established with PCP after discharge. Admission and Anticipated Discharge Date Admission Date: November 27, 2024 Supervising Physician Co-Signing Physician Notes I personally examined the patient and verified all vásquez points of history and exam, discussed case, and agree with decision making with Dr Rizzo seen multiple times today. Generally his only complaint is feeling tired. Denies any weak or lightheadedness of any significance (although he is in bed every time I see him), denies palpitations/chest tightness or pain. Minimal abdominal pain. Feels hungry. No diarrhea. Vitals noted, in general he is very fatigued appears mildly pale. No distress. He is quite tachycardic. Lungs are unlabored without accessory muscle use good effort. Abdomen is soft very mild diffuse tenderness no guarding rebound or rigidity. Diffuse edema. Bite junior consistent with bedbug bites noted. Hypotensionprobably a combination of hypovolemia and sepsis (hypovolemia from malnutrition/dehydration as well as anemia, sepsis from SBP)has been given 3 units of blood as well as isotonic fluidshis blood pressure now has a much more reasonable mean arterial pressure, but he is still quite tachycardic. Reassuringly he is mentating and relatively asymptomatic outside of fatigue. At the same time, case discussed with ICU given how much fluids/antibiotics he has been givencurrently they are recommending albumin. Anemiatransfused. Concerning for GI blood losses/occult malignancy, could also be peptic ulcer disease or angioectasia. No overt bleeding. No coagulopathy or meds to reverse. Continue to follow. Has been transfused 3 units of packed red cells. SBP with probable sepsis present on admissionshock is probably multifactorial, but at least to a degree septic in addition to hypovolemic. paracentesis donequite significant white count. On ceftriaxone. Prior positive C. difficilegiven how frail he is and being on antibiotics for other causesinitiated vancomycin for prophylaxis EtOH abuse - thiamine/folate, no significant signs of withdrawal pharmacologic DVT prophylaxis relative contraindication due to anemia with uncertain source and concern on GI bleeding. SCDs have been ordered. Subjective Mich Castellano is a 64 y/o M with a past medical history of alcohol use disorder, severe anemia, COPD, and SVT admitted to [facility] due to abdominal pain. Patient was found by EMS lying in dirty clothing and stool, likely there for days with a bed bug infestation throughout the house. Patient's hemoglobin was found to be 5.8 and was transfused with 2x PRBCs in ED and 1x PRBC in morning by admitting team as Hgb was still low at 6.8. This morning patient is endorsing 6-7/10 abdominal pain at rest; however his abdomen was non-tender on palpation aside from mild abdominal soreness. Patient was alert and oriented on exam and his main concern was to be given a diet. Patient denies chest pain, palpitations, SOB, cough, wheeze, nausea, or vomiting. Physical Exam Physical Exam: General: patient resting comfortably, NAD, non-toxic in appearance, answers questions appropriately. Skin: warm, dry, intact HEENT: NC/AT, anicteric sclera, conjunctiva without injection, moist mucus membranes. Heart: +S1/S2, regular, no m/r/g Lungs: equal air entry bilaterally, no rales/rhonchi/wheezes Abd: +BS, soft, NT/ND Ext: warm, no clubbing/cyanosis or edema Neuro: nonfocal, speech intact, no facial droop, moving all extremities. Results & Data Results & Data Vital Signs (Past 12 Hours) Vital Signs Temp Pulse Pulse Resp BP BP BP 11/28/24 12:23 91/56 L 11/28/24 11:54 11/28/24 11:51 36.9 C 132 H 16 78/45 L 11/28/24 11:21 36.9 C 131 H 16 80/45 L 11/28/24 11:06 37 C 130 H 16 88/52 L 11/28/24 10:37 36.8 C 129 H 18 86/49 L 11/28/24 07:40 36.9 C 132 H 18 91/57 L 11/28/24 06:03 140 H 11/28/24 05:00 11/28/24 03:00 36.3 C L 131 H 16 96/66 L 11/28/24 01:28 99/67 L 11/28/24 01:05 11/28/24 00:51 84/57 L Pulse Ox Pulse Ox O2 Del Method O2 Del Method O2 Flow Rate O2 Flow Rate 11/28/24 12:23 11/28/24 11:54 Nasal Cannula 2 11/28/24 11:51 100 11/28/24 11:21 100 2 11/28/24 11:06 96 11/28/24 10:37 97 2 11/28/24 07:40 96 Nasal Cannula 2.0 11/28/24 06:03 11/28/24 05:00 96 Nasal Cannula 2 11/28/24 03:00 11/28/24 01:28 11/28/24 01:05 97 Oxymask 2 11/28/24 00:51 (1) Anemia Anemia type: unspecified type Qualified Code(s): D64.9 - Anemia, unspecified (2) GIB (gastrointestinal bleeding) GI bleed type/associated pathology: unspecified gastrointestinal hemorrhage type Qualified Code(s): K92.2 - Gastrointestinal hemorrhage, unspecified (4) Abdominal ascites Ascites type: due to alcoholic cirrhosis Qualified Code(s): K70.31 - Alcoholic cirrhosis of liver with ascites
[2024-11-28] MEDS: CHERRY SYRUP 5 ML UDP PO ONE (13:53)
[2024-11-28] MEDS: VANCOMYCIN HCL 125 MG/2.5ML SOLN PO ONE (13:54)
--- NOTE | 2024-11-28 17:06 | Ultrasound Report ---
ULTRASOUND-GUIDED PARACENTESIS CLINICAL HISTORY: Ascites PROCEDURE: Procedure and risks were explained. Informed consent was obtained. A final timeout was com pleted. The abdomen was prepped and draped in sterile fashion. 1% lidocaine was utilized for skin ane sthesia. Utilizing ultrasound guidance, a 5 Yoruba safety centesis catheter was advanced into the left lower q uadrant pocket of ascites. Ultrasound images were obtained. 2.8 L of ascites fluid was removed with 1 L sent to lab for analysis. The catheter was removed and Band-Aid applied. The patient tolerated the procedure well. Vital signs will be monitored postprocedure. IMPRESSION: Ultrasound-guided paracentesis as above. Performed, dictated, and signed by Henrik Arellano PA-C; to be co-signed by Dr. German Perkins. Electronically signed by: German Perkins M.D. 11/29/2024 7:42 AM
[2024-11-28 17:09] LABS: Hematocrit (blood only) 29.5 % (42.0-52.0); Hemoglobin 8.2 g/dl (14.0-18.0); Mean Corpuscular Hemoglobin 20.7 pg (25.0-34.0); Mean Corpuscular Hgb Conc 27.8 g/dL (32.0-36.0); Mean Corpuscular Volume 74.3 fL (80.0-100.0); Mean Platelet Volume 9.8 fL (9.4-12.4); Nucleated RBC # (auto) 0.74 K/uL (0.00-0.12); Nucleated RBC % (auto) 5.8 %; Platelet Count 265 K/uL (130-400); RDW Coefficient of Variation 28.5 % (11.5-14.5); RDW Standard Deviation 73.2 fL (36.4-46.3); Red Blood Count 3.97 M/uL (4.70-6.10)
--- NOTE | 2024-11-28 18:12 | Billing Data ---
Date of Service November 28, 2024 Coding Level of Care Code 55770 SUB INP/OBS CARE MIN
[2024-11-28 21:05] LABS: Hematocrit (blood only) 26.5 % (42.0-52.0); Hemoglobin 7.6 g/dl (14.0-18.0); Mean Corpuscular Hemoglobin 21.9 pg (25.0-34.0); Mean Corpuscular Hgb Conc 28.7 g/dL (32.0-36.0); Mean Corpuscular Volume 76.4 fL (80.0-100.0); Mean Platelet Volume 10.2 fL (9.4-12.4); Nucleated RBC # (auto) 0.96 K/uL (0.00-0.12); Nucleated RBC % (auto) 6.5 %; Platelet Count 254 K/uL (130-400); Red Blood Count 3.47 M/uL (4.70-6.10); White Blood Count 14.88 K/ul (4.8-10.8)
[2024-11-29 01:16] LABS: Hematocrit (blood only) 25.7 % (42.0-52.0); Hemoglobin 7.3 g/dl (14.0-18.0); Mean Corpuscular Hemoglobin 21.7 pg (25.0-34.0); Mean Corpuscular Hgb Conc 28.4 g/dL (32.0-36.0); Mean Corpuscular Volume 76.3 fL (80.0-100.0); Mean Platelet Volume 9.8 fL (9.4-12.4); Platelet Count 229 K/uL (130-400); RDW Coefficient of Variation 29.1 % (11.5-14.5); RDW Standard Deviation 76.1 fL (36.4-46.3); Red Blood Count 3.37 M/uL (4.70-6.10)
[2024-11-29 01:33] LABS: Nucleated RBC # (auto) 4.05 K/uL (0.00-0.12); Nucleated RBC % (auto) 23.5 %; White Blood Count 17.23 K/ul (4.8-10.8)
[2024-11-29 04:54] LABS: BUN Creatinine Ratio 23.4 (10-20); Calcium 7.9 mg/dl (8.6-10.3); Creatinine Clr Calc Pharmacy 35.8 ml/min; Potassium 4.8 mmol/L (3.5-5.1)
[2024-11-29 04:58] LABS: Anisocytosis Present; Basophils # (auto) 0.14 K/uL (0.00-0.20); Basophils % (auto) 0.7 %; Hematocrit (blood only) 26.3 % (42.0-52.0); Hemoglobin 7.3 g/dl (14.0-18.0); Hypochromasia Present; Immature Granulocytes # (auto) 0.41 K/uL (0.01-0.20); Immature Granulocytes % (auto) 2.2 %; Lymphocytes % (auto) 6.9 %; Mean Corpuscular Hemoglobin 20.9 pg (25.0-34.0); Mean Corpuscular Hgb Conc 27.8 g/dL (32.0-36.0); Mean Corpuscular Volume 75.1 fL (80.0-100.0); Mean Platelet Volume 10.3 fL (9.4-12.4); Monocytes # (auto) 0.89 K/uL (0.11-0.59); Monocytes % (auto) 4.7 %; Neutrophils # (auto) 16.05 K/uL (1.40-6.50); Neutrophils % (auto) 85.5 %; Nucleated RBC # (auto) 2.99 K/uL (0.00-0.12); Nucleated RBC % (auto) 15.9 %; Platelet Count 236 K/uL (130-400); Poikilocytosis Present; Polychromasia 1+; RDW Coefficient of Variation 28.8 % (11.5-14.5); RDW Standard Deviation 74.9 fL (36.4-46.3); White Blood Count 18.79 K/ul (4.8-10.8)
[2024-11-29] MEDS ORDERED: SODIUM CHLORIDE 0.9% 100 ML IV PRN (08:13)
[2024-11-29] MEDS ORDERED: SODIUM CHLORIDE 0.9% 50 ML IV PRN (08:13)
[2024-11-29 09:34] LABS: Hematocrit (blood only) 29.9 % (42.0-52.0); Hemoglobin 8.3 g/dl (14.0-18.0); Mean Corpuscular Hemoglobin 20.8 pg (25.0-34.0); Mean Corpuscular Hgb Conc 27.8 g/dL (32.0-36.0); Mean Corpuscular Volume 74.8 fL (80.0-100.0); Mean Platelet Volume 10.1 fL (9.4-12.4); Nucleated RBC % (auto) 6.3 %; Platelet Count 220 K/uL (130-400); RDW Coefficient of Variation 29.2 % (11.5-14.5); RDW Standard Deviation 76.1 fL (36.4-46.3); White Blood Count 25.54 K/ul (4.8-10.8)
[2024-11-29] MEDS: CALCIUM GLUCONATE 1,000 MG/60 ML BAG IV ONE (09:36)
--- NOTE | 2024-11-29 10:01 | Electrocardiogram Report ---
Test Reason : Blood Pressure : */* mmHG Vent. Rate : 137 BPM Atrial Rate : 137 BPM P-R Int : 122 ms QRS Dur : 84 ms QT Int : 290 ms P-R-T Axes : * 74 64 degrees QTcB Int : 437 ms Sinus tachycardia Low voltage QRS Nonspecific ST and T wave abnormality Abnormal ECG When compared with ECG of 27-Nov-2024 15:22, (unconfirmed) ST no longer depressed in Inferior leads Confirmed by Mario Lemos ([id number]) on 11/29/2024 10:01:25 AM Referred By: REFERRED SELF Confirmed By: Mario Lemos
--- NOTE | 2024-11-29 10:04 | Electrocardiogram Report ---
Test Reason : Blood Pressure : */* mmHG Vent. Rate : 136 BPM Atrial Rate : 136 BPM P-R Int : 120 ms QRS Dur : 84 ms QT Int : 304 ms P-R-T Axes : * 74 73 degrees QTcB Int : 457 ms Sinus tachycardia Low voltage QRS in limb leads Nonspecific ST and T wave abnormality Abnormal ECG When compared with ECG of 28-Nov-2024 18:02, (unconfirmed) No significant change was found Confirmed by Mario Lemos ([id number]) on 11/29/2024 10:04:30 AM Referred By: REFERRED SELF Confirmed By: Mario Lemos
--- NOTE | 2024-11-29 11:24 | Gastroenterology Progress Note ---
Date of Service November 29, 2024 Assessment & Plan (1) Anemia: Plan: -Agree with treatment of chronic iron deficiency anemia as per primary team -Continue to treat underlying bronchitis -Continue to monitor H/H -Discussed with primary team that given stability of H/H and lack of overt GI bleeding, would optimize his respiratory status prior to considering endoscopic evaluation. Admission and Anticipated Discharge Date Admission Date: November 27, 2024 Supervising Physician Co-Signing Physician Notes Patient with iron deficiency anasarca, ascitic fluid today comes back with white count of 14,000. Follow-up CT scan shows probably perforated viscus. I suspect this accounts for his elevated white count. Patient scheduled for OR. He is on broad-spectrum antibiotics we will follow-up postoperation Subjective Patient is a 64 yo male with anemia. H/H this AM 8.3/29.9. He is currently receiving blood products. He has no overt GI bleeding. He denies abdominal pain. He notes persistent cough and difficulty clearing his chest. No new complaints at present. Review of Systems Gastrointestinal: no abdominal pain, no coffee ground emesis, no hematemesis and no melena Physical Exam Constitutional: well developed Respiratory: + cough Gastrointestinal (Abdomen): normal bowel sounds, soft, nontender, no hepatosplenomegaly Psychiatric: Orientation: alert and oriented x 3 Results & Data Results & Data Vital Signs (Past 12 Hours) Vital Signs Temp Pulse Pulse Resp BP BP Pulse Ox 11/29/24 10:29 36.7 C 108 H 18 108/70 93 11/29/24 09:59 36.6 C 105 H 18 116/69 95 11/29/24 09:44 36.6 C 103 H 18 113/70 94 11/29/24 09:24 36.6 C 138 H 18 102/60 92 11/29/24 08:13 36.7 C 107 H 18 93/56 L 95 11/29/24 07:30 136 H 11/29/24 03:18 36.5 C 129 H 16 107/68 92 11/28/24 23:36 36.7 C 132 H 20 105/69 94 11/28/24 23:33 130 H O2 Del Method O2 Flow Rate 11/29/24 10:29 3 11/29/24 09:59 3 11/29/24 09:44 3 11/29/24 09:24 3 11/29/24 08:13 Nasal Cannula 3 11/29/24 07:30 11/29/24 03:18 Nasal Cannula 3 11/28/24 23:36 Nasal Cannula 3 11/28/24 23:33 PG Care Time/CCT Total # of Minutes Spent Total Time Spent with Patient: Total time spent is greater than 50% in coordination of care (as documented) at patient's floor/unit and/or counseling patient: Coding Level of Care Code 13845 SUB INP/OBS CARE 3/50MIN Diagnoses Anemia D64.9 Anemia type: unspecified type (1) Anemia Anemia type: unspecified type Qualified Code(s): D64.9 - Anemia, unspecified
[2024-11-29] MEDS: CHERRY SYRUP 5 ML UDP PO SCH (11:33)
[2024-11-29] MEDS: VANCOMYCIN HCL 125 MG/2.5ML SOLN PO SCH (11:34)
[2024-11-29 11:59] LABS: Bilirubin Direct 1.6 mg/dl (0-0.2); Bilirubin,Total 2.5 mg/dl (0.2-1.0); Total Protein 5.8 gm/dl (6.0-8.3)
--- NOTE | 2024-11-29 12:52 | Hospitalist Progress Note ---
Date of Service November 29, 2024 Assessment & Plan (1) Anemia: (2) GIB (gastrointestinal bleeding): (3) Alcohol abuse: (4) Abdominal ascites: (5) History of Clostridioides difficile infection: (6) Pneumoperitoneum: Plan SBP/Ascites/Hx of C. diff - Pain not severe, no leukocytosis initially, now WBC: 12.70 - Hypotensive with tachycardia, BP steady but soft after 3rd unit of PRBC and 1L NSS bolus; 99/61 - CT abdomen/pelvis showed moderate ascites, moderate body wall edema, potential gastritis vs chronic ascites - GI consult placed, recs appreciated - IV protonix, IV thiamine - Vancomycin prophylaxis pre-treat for C.diff coverage - IV Ceftriaxone, IV Metronidazole for SBP coverage - random cortisol, EKG, albumin ordered for potential hepatorenal syndrome - CBC/CMP/ QAM Pneumoperitoneum/BL pleural effusions - CT AP: pneumoperitoneum and ascites significantly increased - CT chest: Moderately sized L. and R. pleural effusions, increased in size - Surgery consult placed, and ICU transfer - Large 2 cm perforation in proximal jejunum, resected small bowel and primary anastomosis; 3 liters of feculent ascites removed - NGT, Giancarlo drain, Intubated Severe anemia/Hemoccult positive stool - Hemoglobin has been as low as 4.1 in 06/2024 admitted for blood and iron transfusions - GI consult placed, overt GI bleed unlikely - Hemoccult stool pending, no gross melena or hematochezia. - No obvious bleeding on CT AP, potential anemia from chronic bedbug bites - 4 units PRBC given since admit, Hgb: 8.3 - Severe iron deficiency anemia, consider iron infusions - Folate/B12 wnl - CBC QAM, transfuse <7 #Alcohol use disorder/elevated LFTs Previously drank 1/5 of liquor every day but now states that he is only drinking 1 beer per day-unclear if this is true. Denies history of previous withdrawal or seizures. LFTs mildly elevated here and with moderate ascites which is new. -AWSS protocol and IV Ativan as needed withdrawal #Pleural effusions/acute respiratory failure with hypoxemia/COPD/current smoker Pleural effusions likely secondary to hypoalbuminemia and possibly cirrhosis. Requiring 3L NC O2 here but also with known COPD and chronic cough, not currently on maintenance inhalers -Start Incruse Ellipta, give Xopenex nebs as needed given paroxysmal SVT -Continue supplemental O2 to keep pulse ox greater than 90% -Cannot give diuresis at this time due to hypotension and volume depletion intravascularly -Encourage smoking cessation #Paroxysmal SVT With a history of such during previous admission and was started on diltiazem however he never filled this after discharge. -Give 1 g IV magnesium to keep magnesium optimal at 2.0 -Giving volume resuscitation and IV albumin, add on IV Lopressor low-dose if needed for persistent tachycardia -Treating possible underlying infection as above -Monitor on telemetry #Bedbug infestation-decontaminated in the ER DVT prophylaxis-SCDs only due to heme positive stool and severe anemia Disposition-admit to PCU, will need to get established with PCP after discharge. Admission and Anticipated Discharge Date Admission Date: November 27, 2024 Supervising Physician Co-Signing Physician Notes I personally examined the patient and verified all vásquez points of history and ex am, discussed case, and agree with decision making with Dr Rizzo feeling vaguely worse, may be worse abdominal pain. No shortness of breath. No overt bleeding. Later did have some blood in his urine. Some difficulties with Arana.Vitals noted, in general he is very fatigued appears mildly pale. Technically oriented x 3, but pulling at Arana catheter some and seems to be mildly confused. No distress. Still tachycardic but a little less than yesterday. Lungs are coarse and diminished without focal findings but diffusely rhonchorous. Abdomen is moderately distendedand certainly more so than yesterday, diffusely vaguely tender and mildly firm but without true guarding/rebound/rigidity. Hypotensionprobably a combination of hypovolemia and sepsis (hypovolemia from malnutrition/dehydration as well as anemia, sepsis from SBP)has been given 3 units of blood as well as isotonic [id number] unit ordered this AM. his blood pressure showing overall better/more stable mean arterial pressure, still tachycardic but less so. continue to manage hemodynamics and follow closely Anemiatransfused. Concerning for GI blood losses/occult malignancy, could also be peptic ulcer disease or angioectasia. No overt bleeding. At the same time, he seems to not be responding as well as would be expected for the transfusionscould possibly all be prior anemia combined with dilution from IV fluidsbut at the same time concerned that there is an occult process such as retroperitoneal bleed at playrepeat CT abdomen pelvis SBP with probable sepsis present on admissionshock is probably multifactorial, but at least to a degree septic in addition to hypovolemic. paracentesis donequite significant white count. On ceftriaxone. his sepsis also seems disproportionate to what we are seeing with his SBPCT abdomen pelvis as above, and given his lung exam findings, CT chest as well Prior positive C. difficile (carrier)given how frail he is and being on antibiotics for other causesinitiated vancomycin for prophylaxis EtOH abuse - thiamine/folate, no significant signs of withdrawal pharmacologic DVT prophylaxis relative contraindication due to anemia with uncertain source and concern on GI bleeding. SCDs have been ordered. as a late addendum, CT abdomen pelvis surprisingly came back with a large amount of pneumoperitoneum, concern on perforated viscusmoving to ICU, surgery consulted/contacted. Fortunately he is actually more hemodynamically stable than he has been since assuming his care. Subjective Patient was seen resting this morning. Endorses increased abdominal pain 7-8/10, and very tender on palpation. Patient also reports that his arana is not draining properly and notes lower abdominal and groin pain. Patient notes that his SOB has remained constant, but in general he feels worse than the day before post PRBC transfusions. Patient has received 4 units of PRBCs and his Hgb has gone from 5.8 on admission to 8.3 and has been holding steady. Patient denies hematochezia or melena. Patient denies palpitations, cough, wheeze, nausea, and vomiting. Physical Exam Physical Exam: General: patient resting comfortably, NAD, non-toxic in appearance, answers questions appropriately. Skin: warm, dry, intact HEENT: NC/AT, anicteric sclera, conjunctiva without injection, moist mucus membranes. Heart: +S1/S2, regular, no m/r/g Lungs: equal air entry bilaterally, no rales/rhonchi/wheezes Abd: +BS, distended, diffuse abdominal tenderness Ext: warm, no clubbing/cyanosis or edema Neuro: nonfocal, speech intact, no facial droop, moving all extremities. Results & Data Results & Data Vital Signs (Past 12 Hours) Vital Signs Temp Pulse Pulse Resp BP BP Pulse Ox 11/29/24 11:29 36.7 C 110 H 18 111/68 92 11/29/24 10:29 36.7 C 108 H 18 108/70 93 11/29/24 09:59 36.6 C 105 H 18 116/69 95 11/29/24 09:44 36.6 C 103 H 18 113/70 94 11/29/24 09:24 36.6 C 138 H 18 102/60 92 11/29/24 08:13 36.7 C 107 H 18 93/56 L 95 11/29/24 07:30 136 H 11/29/24 03:18 36.5 C 129 H 16 107/68 92 O2 Del Method O2 Flow Rate 11/29/24 11:29 3 11/29/24 10:29 3 11/29/24 09:59 3 11/29/24 09:44 3 11/29/24 09:24 3 11/29/24 08:13 Nasal Cannula 3 11/29/24 07:30 11/29/24 03:18 Nasal Cannula 3 Resident Activity Tracking Resident Involvement: Resident Care Provided Care Provided: Adult Hospital Medicine (1) Anemia Anemia type: unspecified type Qualified Code(s): D64.9 - Anemia, unspecified (2) GIB (gastrointestinal bleeding) GI bleed type/associated pathology: unspecified gastrointestinal hemorrhage type Qualified Code(s): K92.2 - Gastrointestinal hemorrhage, unspecified (4) Abdominal ascites Ascites type: due to alcoholic cirrhosis Qualified Code(s): K70.31 - Alcoholic cirrhosis of liver with ascites
--- NOTE | 2024-11-29 13:58 | CT Scan Report ---
CT OF THE CHEST WITHOUT IV CONTRAST CLINICAL HISTORY: Rhonchi/rales. COMPARISON STUDY: Chest radiograph July 25, 2024. Chest CT November 27, 2024. TECHNIQUE: Axial images of the chest were obtained without IV contrast. Images were reviewed in the axial, sagittal, and coronal planes. IV contrast was not administered for this examination. Automat ed exposure control was utilized for the study. A dose lowering technique was utilized adhering to t he principles of ALARA. FINDINGS: Moderate right and small left pleural effusions have increased in size since chest CT of D ec2023. Extensive right lower lobe airspace opacity with volume loss favors compressive ate lectasis. There is also segmental atelectasis within the right upper and right lower lobes. There are secretions within the airways. There is no pneumothorax. Lungs are suboptimally assessed due to resp iratory motion. Severe emphysema. The heart is moderately enlarged. There is no pericardial effusion. There is no thoracic lymphadenopathy. The abdomen and pelvis CT will be reported separately. Large v olume pneumoperitoneum and upper abdominal ascites is present. There is body wall anasarca. IMPRESSION: 1. Large volume pneumoperitoneum consistent with a perforated hollow viscus. Findings better depicted on CT of the abdomen and pelvis which will be reported separately. Surgical consultation is recommen ded. Findings discussed with Dr. Almonte at time of dictation. 2. Ascites and anasarca. 3. Moderate right and small left pleural effusions which have increased in size since prior exam. Pos sible mild interstitial pulmonary edema. Extensive right lower lobe airspace opacities with volume lo ss favors compressive atelectasis. 4. Emphysema. 5. Cardiomegaly. ACT 112: Negative or not required by law. Electronically signed by: German Perkins M.D. 11/29/2024 1:56 PM
--- NOTE | 2024-11-29 14:10 | Billing Data ---
Date of Service November 29, 2024 Coding Level of Care Code 99060 SUB INP/OBS CARE
--- NOTE | 2024-11-29 14:37 | CT Scan Report ---
CT abd pelvis wo con CLINICAL HISTORY: r/o retroperitoneal bleed, increased TTP TECHNIQUE: Helical axial images of the abdomen and pelvis were obtained. Automated dose lowering tech niques and/or adjustment according to patient size were utilized for this exam. This exam was perfor med without intravenous contrast. CT DOSE: 814.09 mGy.cm COMPARISON: Comparison is made to CT abdomen pelvis 11/27/2024 FINDINGS: Lower chest: For findings above the diaphragm, please see CT chest performed same day. Liver: Unremarkable. No focal lesions are seen. Gallbladder and biliary tree: Cholelithiasis is seen without evidence of cholecystitis. No intra- or extrahepatic biliary ductal dilation. Pancreas: Unremarkable, no focal lesions. Spleen: Unremarkable. Adrenals: Unremarkable. Kidneys and ureters: Left renal cyst is seen. Bladder: Sheth catheter is seen. Reproductive organs: Unremarkable. Bowel: Diverticulosis is seen without evidence of diverticulitis. There is a small hiatal hernia. Dif fuse small bowel wall thickening may be reactive however enteritis cannot be excluded. Lymph nodes Retroperitoneal: Unremarkable. Pelvic: Unremarkable. Mesenteric: Unremarkable. Peritoneum: There is prominent ascites and pneumoperitoneum, both of which have increased from the pr ior exam. Vessels: Atherosclerotic calcifications are seen. Abdominal wall: Unremarkable. Bones: Degenerative changes in the visualized spine. IMPRESSION: 1. Significant increase in ascites and pneumoperitoneum from the prior exam. This may represent an u nderlying bowel perforation. 2. Bilateral pleural effusions, the left is significantly enlarged from prior exam. ACT 112: Negative or not required by law. Electronically signed by: Corey Jiménez M.D. 11/29/2024 2:36 PM
--- NOTE | 2024-11-29 15:03 | Critical Care Consultation ---
Date of Consultation November 29, 2024 Assessment & Plan (1) Pneumoperitoneum: (2) History of Clostridioides difficile infection: (3) Abdominal ascites: (4) Pleural effusion: (5) GIB (gastrointestinal bleeding): (6) PSVT (paroxysmal supraventricular tachycardia): (7) Aspiration into lower respiratory tract: (8) Bed bug bite: (9) Alcohol abuse: (10) Transaminitis: (11) ISA (acute kidney injury): (12) COPD (chronic obstructive pulmonary disease): (13) High anion gap metabolic acidosis: Plan Reason Critically Ill: 64-year-old male was admitted to the hospital for GI bleed. Patient was found to have pneumoperitoneum as well as ISA and was transferred to ICU for further management Past medical history: Alcohol abuse, COPD, ascites Neuro - [facility] ICU: Unable to assess Sedation with fentanyl Given the history of liver cirrhosis avoid benzodiazepines Cardiac - -- Shock Likely combination of sepsis as well as anesthesia Continue vasopressor support to keep MAP greater than 65 Respiratory - --Intubated for the OR Aspiration episode during intubation Continue with ventilatory support Keep RASS -1 Daily sedation holidays and SBT's Chlorhexidine mouthwash -- Bilateral pleural effusion R>L Etiology is likely ascitic fluid Will try to diurese if possible if no improvement then thoracentesis will be considered --Active smoker with probable COPD Does not seem to be bronchospastic GI - -- Pneumoperitoneum secondary to jejunal perforation Patient did have paracentesis done 11/28/2024 S/p surgery 11/29/2024, surgery following Continue with antibiotics -- History of C. difficile On prophylactic vancomycin RENAL/LYTES - -- ISA Probability of hepatorenal syndrome Also was hypotensive on 11/28/2024 Urine sodium 34 - -Continue with Sheth catheter- ENDO - -- ICU hypoglycemia protocol HEME - -- Acute blood loss anemia S/p 2 units PRBC Monitor H&H GI on board ID - -- SBP with perforation of jejunum Continue with antibiotics for anaerobic as well as gram-negative coverage --Prophylaxis VTE: IPC GI: Pantoprazole Lines: Right IJ, right radial, positive ETT, positive Sheth Diet: N.p.o. Plan: ABG 7.21/45/274 on 100% FiO2 PEEP of 8 Chest x-ray to be done now to look at the positioning of the ET tube Try to keep the MAP around 70 Fentanyl for sedation Given that the sodium in the urine is >20 the probability of patient having hepatorenal syndrome is high. Given that he is already on vasopressor support. No need to start octreotide or midodrine. I will give him albumin 37.5 g on a daily basis for the next 5 days Overall prognosis is guarded If there is no improvement in the next 24-48 hours then palliative approach would be appropriate I have personally spent 63 minutes of critical care time in the direct management of this patient. This is a life/limb threatening event. This includes time spent evaluating patient, direct bedside care, chart review, placing orders, interpretation of diagnostic studies, discussion with consultants, patient, and family members, as well as other required patient management activities. This time is exclusive of all separately billable procedures, and teaching time and separate from and in addition to any other critical care service time. History of Present Illness Attending Physician: Oswald Hough DO History of Present Illness 64-year-old male was admitted to the hospital for GI bleed. Patient was found to have pneumoperitoneum as well as ISA and was transferred to ICU for further management Past medical history: Alcohol abuse, COPD, ascites At the time of examination patient just came back from the OR He was intubated but he was on 0.14 of Levophed MAP was in the 90s. We gradually titrated down to 0.10. As per the signout from anesthesia, patient aspirated during intubation > 2 L IV fluid was drained and the OR which was replaced by 750 cc of albumin and 1.5 L of LR The pH in the OR was 7.2 for which she was given 1 amp of bicarb and 1 g of calcium He was breathing with the vent. Afebrile Saturation was 100% on the forehead. It did fluctuate and went into 65-66%. Likely falsely low as the ABG showed PaO2 of 274 Patient had perforation of the jejunum as per the OR note. History was obtained from the previous chart Social history: Greater than [id number] smoking history, current smoker, heavy alcohol use Allergies Allergy/AdvReac Type Severity Reaction Status Date / Time No Known Drug Allergies Allergy Unknown Verified 07/19/24 18:46 Patient History Medical History COPD (chronic obstructive pulmonary disease) Macrocytic anemia Coagulopathy Anemia Alcohol dependence Social History Smoking Status: Current every day smoker Tobacco Type: Cigarettes Cigarettes Per Day: 20; Do You Dip or Chew Tobacco: No; Hx Alcohol Use: Yes Alcohol type: beer Hx Substance Use: No Preferred Language: Albanian Communication Ability: Effective Card Player Required: No Beliefs That Will Affect Care: None Current Living Situation: Other Current Living Situation Comment: with a friend/jailer/training officer of home Feels Safe at Home: Yes Assistive Devices: None Review of Systems 2 Review of Systems: All systems reviewed & are unremarkable except as noted in HPI & below and Unobtainable due to endotracheal tube Physical Exam 2 Physical Exam: Constitutional: No acute distress, frail-appearing HEENT: PERRLA Respiratory system: Decreased air entry bilaterally, more decreased on the right side, no wheeze, no rhonchi, positive crackles bilaterally CVS: S1-S2 positive, no murmurs or gallops, tachycardia Abdomen: Soft, nontender, nondistended, decreased bowel sounds x4, dressing with ESTRELLITA drain in place Extremities: +2 pulses bilaterally radialis/ dorsalis pedis, no cyanosis, +2 pitting edema bilateral lower extremity Neuro: Intubated and sedated Psych: Unable to assess G/U: Positive Sheth Skin: no rashes, warm and dry Lymphatic: no cervical or axillary lymphadenopathy Results & Data Results & Data Vital Signs (Past 12 Hours) Vital Signs Temp Pulse Pulse Resp BP BP Pulse Ox 11/29/24 14:52 142 H 11/29/24 12:55 36.6 C 105 H 18 134/76 94 11/29/24 12:55 36.6 C 110 H 18 134/76 94 11/29/24 11:29 36.7 C 110 H 18 111/68 92 11/29/24 10:29 36.7 C 108 H 18 108/70 93 11/29/24 09:59 36.6 C 105 H 18 116/69 95 11/29/24 09:44 36.6 C 103 H 18 113/70 94 11/29/24 09:24 36.6 C 138 H 18 102/60 92 11/29/24 08:13 36.7 C 107 H 18 93/56 L 95 11/29/24 08:10 11/29/24 07:30 136 H 11/29/24 03:18 36.5 C 129 H 16 107/68 92 O2 Del Method O2 Flow Rate 11/29/24 14:52 11/29/24 12:55 3 11/29/24 12:55 3 11/29/24 11:29 3 11/29/24 10:29 3 11/29/24 09:59 3 11/29/24 09:44 3 11/29/24 09:24 3 11/29/24 08:13 Nasal Cannula 3 11/29/24 08:10 Nasal Cannula 3 11/29/24 07:30 11/29/24 03:18 Nasal Cannula 3 Laboratory Results 11/29/24 09:03 11/29/24 03:36 Coding Level of Care Code 39560 CRITICAL CARE 1ST 30-74M Diagnoses Pneumoperitoneum K66.8 History of Clostridioides difficile infection Z86.19 Abdominal ascites K70.31 Ascites type: due to alcoholic cirrhosis Pleural effusion J90 GIB (gastrointestinal bleeding) K92.2 GI bleed type/associated pathology: unspecified gastrointestinal hemorrhage type PSVT (paroxysmal supraventricular tachycardia) I47.10 Aspiration into lower respiratory tract T17.800A Bed bug bite W57.XXXA Encounter type: initial encounter Alcohol abuse F10.10 Transaminitis R74.01 ISA (acute kidney injury) N17.9 COPD (chronic obstructive pulmonary disease) J44.9 High anion gap metabolic acidosis E87.29 (3) Abdominal ascites Ascites type: due to alcoholic cirrhosis Qualified Code(s): K70.31 - Alcoholic cirrhosis of liver with ascites (5) GIB (gastrointestinal bleeding) GI bleed type/associated pathology: unspecified gastrointestinal hemorrhage type Qualified Code(s): K92.2 - Gastrointestinal hemorrhage, unspecified (8) Bed bug bite Encounter type: initial encounter Qualified Code(s): W57.XXXA - Bitten or stung by nonvenomous insect and other nonvenomous arthropods, initial encounter
--- NOTE | 2024-11-29 15:12 | Surgery Consultation ---
Date of Consultation November 29, 2024 Assessment & Plan (1) Abdominal ascites: (2) Pneumoperitoneum: (3) Symptomatic anemia: Plan This patient is a 64-year-old male with a history of alcohol use disorder, severe anemia, bedbug infestation, COPD, and SVT who does not follow regularly with a physician who presents via ambulance with abdominal pain, found to have ascites and severe anemia s/p transfusion and paracentesis yesterday 11/28/2024 now with increasing abdominal pain, distention and repeat CT scan of abd/pelvis with pneumoperitoneum and ascites consistent with perforated viscous. Exam with distention and peritonitis. Leukocytosis of 25k and now tachycardic. Creatin ine up to 2 with minimal urine output. Plan: Will need to proceed to operating room for exploratory laparotomy possible bowel resection possible ostomy. Will need to go to ICU postoperatively. No family or friends available to provide consent and patient is confused. Will need to obtain doctor to doctor consent for OR and anesthesia. Proceed to OR emergently for ex lap. Dr. Caal has seen and examined patient, agrees with above. History of Present Illness Reason for Consultation: Pneumoperitoneum Requesting Physician: Oswald Hough DO Attending Physician: Oswald Hough DO History of Present Illness HISTORY OBTAINED FROM CHART AND NURSING STAFF PATIENT IS CONFUSED AND UNABLE TO GIVE HISTORY This patient is a 64-year-old male with a history of alcohol use disorder, severe anemia, bedbug infestation, COPD, and SVT who does not follow regularly with a physician who presents via ambulance with abdominal pain. The prehospital personnel noted that the patient was lying in filthy clothing with diarrhea around him likely for days and there were bedbugs infested throughout the house. The patient denies N/V, but reports he has had very poor appetite for a couple of weeks. His abdominal pain is mostly mid and left sided and is mild in nature. He denies any blood in the stool or black tarry stools. He reports being extremely weak and lightheaded and he called 911. He was found to have brown stool but it was heme positive on exam. He had severe anemia with a hemoglobin of 5.8. He had hypernatremia, mild non anion gap metabolic acidosis, mildly elevated LFTs, mildly elevated troponin, was hypotensive and tachycardic. His alcohol level was undetectable and he reports that he is only been drinking 1 beer a day for the last couple of months. 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 A CT abdomen/pelvis showed moderate ascites, moderate body wall edema, bilateral inguinal hernias and scattered small bowel thickening consistent with gastroenteritis or secondary to chronic ascites. He underwent paracentesis yesterday in which 2.1 liters of fluid was removed. Per nurse he started complaining of more abdominal pain with distention today and repeat imaging showing signficant pneumoperitoneum and increased ascites concerning for perforated viscous. Allergies Allergy/AdvReac Type Severity Reaction Status Date / Time No Known Drug Allergies Allergy Unknown Verified 07/19/24 18:46 Patient History Medical History COPD (chronic obstructive pulmonary disease) Macrocytic anemia Coagulopathy Anemia Alcohol dependence Social History Smoking Status: Current every day smoker Tobacco Type: Cigarettes Cigarettes Per Day: 20; Do You Dip or Chew Tobacco: No; Hx Alcohol Use: Yes Alcohol type: beer Hx Substance Use: No Preferred Language: Venezuelan Communication Ability: Effective Dye Weigher Helper Required: No Beliefs That Will Affect Care: None Current Living Situation: Other Current Living Situation Comment: with a friend/manometer technician of home Feels Safe at Home: Yes Assistive Devices: None Physical Exam Constitutional: + ill appearing, + frail appearing, + le thargic and + malnourished; + not well developed, + not well nourished and no acute distress Respiratory: normal respiratory effort; no respiratory distress and no retractions Cardiovascular: Rate/Rhythm: + tachycardic Heart Sounds: normal S1 and normal S2 Gastrointestinal (Abdomen): Inspection/Auscultation: + abdomen distended; + abdomen abnormal to inspection Percussion/Palpation: + abdomen tender, + guarding, + abdomen rigid and + tympanic to percussion; + abdomen not soft + peritonitis Skin: no rashes, warm and dry Psychiatric: Orientation: + not alert and + not oriented x 3 Results & Data Vital Signs (Past 12 Hours) Vital Signs Temp Pulse Pulse Resp BP BP Pulse Ox 11/29/24 14:52 142 H 11/29/24 12:55 36.6 C 105 H 18 134/76 94 11/29/24 12:55 36.6 C 110 H 18 134/76 94 11/29/24 11:29 36.7 C 110 H 18 111/68 92 11/29/24 10:29 36.7 C 108 H 18 108/70 93 11/29/24 09:59 36.6 C 105 H 18 116/69 95 11/29/24 09:44 36.6 C 103 H 18 113/70 94 11/29/24 09:24 36.6 C 138 H 18 102/60 92 11/29/24 08:13 36.7 C 107 H 18 93/56 L 95 11/29/24 08:10 11/29/24 07:30 136 H 11/29/24 03:18 36.5 C 129 H 16 107/68 92 O2 Del Method O2 Flow Rate 11/29/24 14:52 11/29/24 12:55 3 11/29/24 12:55 3 11/29/24 11:29 3 11/29/24 10:29 3 11/29/24 09:59 3 11/29/24 09:44 3 11/29/24 09:24 3 11/29/24 08:13 Nasal Cannula 3 11/29/24 08:10 Nasal Cannula 3 11/29/24 07:30 11/29/24 03:18 Nasal Cannula 3 Laboratory Results 11/29/24 11/29/24 11/29/24 Range/Units 09:03 03:36 03:36 WBC 25.54 H (4.8-10.8) K/ul RBC 4.00 L (4.70-6.10) M/uL Hgb 8.3 L (14.0-18.0) g/dl Hct 29.9 L (42.0-52.0) % MCV 74.8 L (80.0-100.0) fL MCH 20.8 L (25.0-34.0) pg MCHC 27.8 L (32.0-36.0) g/dL RDW Std Deviation 76.1 H (36.4-46.3) fL RDW Coeff of Jourdan 29.2 H (11.5-14.5) % Plt Count 220 (130-400) K/uL MPV 10.1 (9.4-12.4) fL Immature Gran % (Auto) % Neut % (Auto) % Lymph % (Auto) % [place] % (Auto) % Eos % (Auto) % Baso % (Auto) % Neut # (Auto) (1.40-6.50) K/uL Lymph # (Auto) (1.20-3.40) K/uL [place] # (Auto) (0.11-0.59) K/uL Eos # (Auto) (0.00-0.50) K/uL Baso # (Auto) (0.00-0.20) K/uL Immature Gran # (Auto) (0.01-0.20) K/uL Absolute Nucleated RBC 1.60 H (0.00-0.12) K/uL Nucleated RBC % (auto) 6.3 % Polychromasia Hypochromasia Poikilocytosis Anisocytosis Sodium (136-145) mmol/L Potassium (3.5-5.1) mmol/L Chloride (98-107) mmol/L Carbon Dioxide (21-32) mmol/L Anion Gap (3-11) BUN (6-23) mg/dl Creatinine (0.6-1.4) mg/dl Est Cr Clr Drug Dosing ml/min eGFR BUN/Creatinine Ratio (10-20) Glucose (70-99(Fasting)) mg/dl Calcium (8.6-10.3) mg/dl Total Bilirubin (0.2-1.0) mg/dl Direct Bilirubin (0-0.2) mg/dl AST (13-39) U/L ALT (7-52) U/L Alkaline Phosphatase (34-104) U/L Total Protein Cancelled (6.0-8.3) gm/dl Albumin Cancelled 4.0 (3.4-5.0) gm/dl Random Cortisol mcg/dl Blood Type Antibody Screen Crossmatch 11/29/24 11/29/24 11/29/24 Range/Units 03:36 03:36 03:36 WBC (4.8-10.8) K/ul RBC (4.70-6.10) M/uL Hgb (14.0-18.0) g/dl Hct (42.0-52.0) % MCV (80.0-100.0) fL MCH (25.0-34.0) pg MCHC (32.0-36.0) g/dL RDW Std Deviation (36.4-46.3) fL RDW Coeff of Jourdan (11.5-14.5) % Plt Count (130-400) K/uL MPV (9.4-12.4) fL Immature Gran % (Auto) % Neut % (Auto) % Lymph % (Auto) % [place] % (Auto) % Eos % (Auto) % Baso % (Auto) % Neut # (Auto) (1.40-6.50) K/uL Lymph # (Auto) (1.20-3.40) K/uL [place] # (Auto) (0.11-0.59) K/uL Eos # (Auto) (0.00-0.50) K/uL Baso # (Auto) (0.00-0.20) K/uL Immature Gran # (Auto) (0.01-0.20) K/uL Absolute Nucleated RBC (0.00-0.12) K/uL Nucleated RBC % (auto) % Polychromasia Hypochromasia Poikilocytosis Anisocytosis Sodium (136-145) mmol/L Potassium (3.5-5.1) mmol/L Chloride (98-107) mmol/L Carbon Dioxide (21-32) mmol/L Anion Gap (3-11) BUN (6-23) mg/dl Creatinine (0.6-1.4) mg/dl Est Cr Clr Drug Dosing ml/min eGFR BUN/Creatinine Ratio (10-20) Glucose (70-99(Fasting)) mg/dl Calcium (8.6-10.3) mg/dl Total Bilirubin (0.2-1.0) mg/dl Direct Bilirubin (0-0.2) mg/dl AST Cancelled (13-39) U/L ALT Cancelled 28 (7-52) U/L Alkaline Phosphatase Cancelled 30 L (34-104) U/L Total Protein 5.8 L (6.0-8.3) gm/dl Albumin (3.4-5.0) gm/dl Random Cortisol mcg/dl Blood Type Antibody Screen Crossmatch 11/29/24 11/29/24 11/29/24 Range/Units 03:36 03:36 03:36 WBC 18.79 H (4.8-10.8) K/ul RBC 3.50 L (4.70-6.10) M/uL Hgb 7.3 L (14.0-18.0) g/dl Hct 26.3 L (42.0-52.0) % MCV 75.1 L (80.0-100.0) fL MCH 20.9 L (25.0-34.0) pg MCHC 27.8 L (32.0-36.0) g/dL RDW Std Deviation 74.9 H (36.4-46.3) fL RDW Coeff of Jourdan 28.8 H (11.5-14.5) % Plt Count 236 (130-400) K/uL MPV 10.3 (9.4-12.4) fL Immature Gran % (Auto) 2.2 % Neut % (Auto) 85.5 % Lymph % (Auto) 6.9 % [place] % (Auto) 4.7 % Eos % (Auto) 0.0 % Baso % (Auto) 0.7 % Neut # (Auto) 16.05 H (1.40-6.50) K/uL Lymph # (Auto) 1.30 (1.20-3.40) K/uL [place] # (Auto) 0.89 H (0.11-0.59) K/uL Eos # (Auto) 0.00 (0.00-0.50) K/uL Baso # (Auto) 0.14 (0.00-0.20) K/uL Immature Gran # (Auto) 0.41 H (0.01-0.20) K/uL Absolute Nucleated RBC 2.99 H (0.00-0.12) K/uL Nucleated RBC % (auto) 15.9 % Polychromasia 1+ Hypochromasia Present Poikilocytosis Present Anisocytosis Present Sodium 144 (136-145) mmol/L Potassium 4.8 D (3.5-5.1) mmol/L Chloride 115 H (98-107) mmol/L Carbon Dioxide 19 L (21-32) mmol/L Anion Gap 10 (3-11) BUN 47 H (6-23) mg/dl Creatinine 2.01 H D (0.6-1.4) mg/dl Est Cr Clr Drug Dosing 35.8 ml/min eGFR 36.82 BUN/Creatinine Ratio 23.4 H (10-20) Glucose 88 (70-99(Fasting)) mg/dl Calcium 7.9 L (8.6-10.3) mg/dl Total Bilirubin Cancelled 2.5 H (0.2-1.0) mg/dl Direct Bilirubin Cancelled 1.6 H (0-0.2) mg/dl AST 33 (13-39) U/L ALT (7-52) U/L Alkaline Phosphatase (34-104) U/L Total Protein (6.0-8.3) gm/dl Albumin (3.4-5.0) gm/dl Random Cortisol mcg/dl Blood Type Antibody Screen Crossmatch 11/29/24 11/28/24 11/28/24 Range/Units 01:01 20:29 16:29 WBC 17.23 H 14.88 H 12.70 H (4.8-10.8) K/ul RBC 3.37 L 3.47 L 3.97 L (4.70-6.10) M/uL Hgb 7.3 L 7.6 L 8.2 L (14.0-18.0) g/dl Hct 25.7 L 26.5 L 29.5 L (42.0-52.0) % MCV 76.3 L 76.4 L 74.3 L (80.0-100.0) fL MCH 21.7 L 21.9 L 20.7 L (25.0-34.0) pg MCHC 28.4 L 28.7 L 27.8 L (32.0-36.0) g/dL RDW Std Deviation 76.1 H 73.2 H (36.4-46.3) fL RDW Coeff of Jourdan 29.1 H 28.5 H (11.5-14.5) % Plt Count 229 254 265 (130-400) K/uL MPV 9.8 10.2 9.8 (9.4-12.4) fL Immature Gran % (Auto) % Neut % (Auto) % Lymph % (Auto) % [place] % (Auto) % Eos % (Auto) % Baso % (Auto) % Neut # (Auto) (1.40-6.50) K/uL Lymph # (Auto) (1.20-3.40) K/uL [place] # (Auto) (0.11-0.59) K/uL Eos # (Auto) (0.00-0.50) K/uL Baso # (Auto) (0.00-0.20) K/uL Immature Gran # (Auto) (0.01-0.20) K/uL Absolute Nucleated RBC 4.05 H 0.96 H 0.74 H (0.00-0.12) K/uL Nucleated RBC % (auto) 23.5 6.5 5.8 % Polychromasia Hypochromasia Poikilocytosis Anisocytosis Sodium (136-145) mmol/L Potassium (3.5-5.1) mmol/L Chloride (98-107) mmol/L Carbon Dioxide (21-32) mmol/L Anion Gap (3-11) BUN (6-23) mg/dl Creatinine (0.6-1.4) mg/dl Est Cr Clr Drug Dosing ml/min eGFR BUN/Creatinine Ratio (10-20) Glucose (70-99(Fasting)) mg/dl Calcium (8.6-10.3) mg/dl Total Bilirubin (0.2-1.0) mg/dl Direct Bilirubin (0-0.2) mg/dl AST (13-39) U/L ALT (7-52) U/L Alkaline Phosphatase (34-104) U/L Total Protein (6.0-8.3) gm/dl Albumin (3.4-5.0) gm/dl Random Cortisol > 60.00 mcg/dl Blood Type Antibody Screen Crossmatch 11/27/24 Range/Units 14:38 WBC (4.8-10.8) K/ul RBC (4.70-6.10) M/uL Hgb (14.0-18.0) g/dl Hct (42.0-52.0) % MCV (80.0-100.0) fL MCH (25.0-34.0) pg MCHC (32.0-36.0) g/dL RDW Std Deviation (36.4-46.3) fL RDW Coeff of Jourdan (11.5-14.5) % Plt Count (130-400) K/uL MPV (9.4-12.4) fL Immature Gran % (Auto) % Neut % (Auto) % Lymph % (Auto) % [place] % (Auto) % Eos % (Auto) % Baso % (Auto) % Neut # (Auto) (1.40-6.50) K/uL Lymph # (Auto) (1.20-3.40) K/uL [place] # (Auto) (0.11-0.59) K/uL Eos # (Auto) (0.00-0.50) K/uL Baso # (Auto) (0.00-0.20) K/uL Immature Gran # (Auto) (0.01-0.20) K/uL Absolute Nucleated RBC (0.00-0.12) K/uL Nucleated RBC % (auto) % Polychromasia Hypochromasia Poikilocytosis Anisocytosis Sodium (136-145) mmol/L Potassium (3.5-5.1) mmol/L Chloride (98-107) mmol/L Carbon Dioxide (21-32) mmol/L Anion Gap (3-11) BUN (6-23) mg/dl Creatinine (0.6-1.4) mg/dl Est Cr Clr Drug Dosing ml/min eGFR BUN/Creatinine Ratio (10-20) Glucose (70-99(Fasting)) mg/dl Calcium (8.6-10.3) mg/dl Total Bilirubin (0.2-1.0) mg/dl Direct Bilirubin (0-0.2) mg/dl AST (13-39) U/L ALT (7-52) U/L Alkaline Phosphatase (34-104) U/L Total Protein (6.0-8.3) gm/dl Albumin (3.4-5.0) gm/dl Random Cortisol mcg/dl Blood Type O Positive Antibody Screen NEGATIVE Crossmatch See Detail Diagnostic Findings CT abd pelvis wo con CLINICAL HISTORY: r/o retroperitoneal bleed, increased TTP TECHNIQUE: Helical axial images of the abdomen and pelvis were obtained. Automated dose lowering techniques and/or adjustment according to patient size were utilized for this exam. This exam was performed without intravenous contrast. CT DOSE: 814.09 mGy.cm COMPARISON: Comparison is made to CT abdomen pelvis 11/27/2024 FINDINGS: Lower chest: For findings above the diaphragm, please see CT chest performed same day. Liver: Unremarkable. No focal lesions are seen. Gallbladder and biliary tree: Cholelithiasis is seen without evidence of cholecystitis. No intra- or extrahepatic biliary ductal dilation. Pancreas: Unremarkable, no focal lesions. Spleen: Unremarkable. Adrenals: Unremarkable. Kidneys and ureters: Left renal cyst is seen. Bladder: Sheth catheter is seen. Reproductive organs: Unremarkable. Bowel: Diverticulosis is seen without evidence of diverticulitis. There is a small hiatal hernia. Diffuse small bowel wall thickening may be reactive however enteritis cannot be excluded. Lymph nodes Retroperitoneal: Unremarkable. Pelvic: Unremarkable. Mesenteric: Unremarkable. Peritoneum: There is prominent ascites and pneumoperitoneum, both of which have increased from the prior exam. Vessels: Atherosclerotic calcifications are seen. Abdominal wall: Unremarkable. Bones: Degenerative changes in the visualized spine. IMPRESSION: 1. Significant increase in ascites and pneumoperitoneum from the prior exam. This may represent an underlying bowel perforation. 2. Bilateral pleural effusions, the left is significantly enlarged from prior exam. CT OF THE CHEST WITHOUT IV CONTRAST CLINICAL HISTORY: Rhonchi/rales. COMPARISON STUDY: Chest radiograph July 25, 2024. Chest CT November 27, 2024. TECHNIQUE: Axial images of the chest were obtained without IV contrast. Images were reviewed in the axial, sagittal, and coronal planes. IV contrast was not administered for this examination. Automated exposure control was utilized for the study. A dose lowering technique was utilized adhering to the principles of ALARA. FINDINGS: Moderate right and small left pleural effusions have increased in size since chest CT of November 27, 2024. Extensive right lower lobe airspace opacity with volume loss favors compressive atelectasis. There is also segmental atelectasis within the right upper and right lower lobes. There are secretions within the airways. There is no pneumothorax. Lungs are suboptimally assessed due to respiratory motion. Severe emphysema. The heart is moderately enlarged. There is no pericardial effusion. There is no thoracic lymphadenopathy. The abdomen and pelvis CT will be reported separately. Large volume pneumoperitoneum and upper abdominal ascites is present. There is body wall anasarca. IMPRESSION: 1. Large volume pneumoperitoneum consistent with a perforated hollow viscus. Findings better depicted on CT of the abdomen and pelvis which will be reported separately. Surgical consultation is recommended. Findings discussed with Dr. Almonte at time of dictation. 2. Ascites and anasarca. 3. Moderate right and small left pleural effusions which have increased in size since prior exam. Possible mild interstitial pulmonary edema. Extensive right lower lobe airspace opacities with volume loss favors compressive atelectasis. 4. Emphysema. 5. Cardiomegaly. ACT 112: Negative or not required by law. Electronically signed by: German Perkins M.D. 11/29/2024 1:56 PM (1) Abdominal ascites Ascites type: due to alcoholic cirrhosis Qualified Code(s): K70.31 - Alcoholic cirrhosis of liver with ascites
[2024-11-29 15:16] LABS: Appearance Urine Cloudy (Clear); Color Urine Orange; Protein Urine 1+ (Negative); Specific Gravity Urine 1.004 (1.000-1.030); pH Urine 5.5 (4.5-7.5)
[2024-11-29] MEDS ORDERED: PROPOFOL IV EMULSION 10 MG/ML 20 ML VIAL IV ONE (15:16)
[2024-11-29] MEDS ORDERED: ROCURONIUM BROMIDE 10 MG/ML 5 ML VIAL IV ONE ×3 (15:16→17:09)
[2024-11-29] MEDS ORDERED: LIDOCAINE 2% 2 ML VIAL/AMP(20MG/ML) INFIL ONE (15:16)
[2024-11-29 15:17] LABS: Bacteria Urine Automated None Seen (None Seen); Bilirubin Urine Negative (Negative); Blood Urine 3+ (Negative); Glucose Urine UA Negative (Negative); Ketones Urine Negative (Negative); Leukocyte Esterase Urine 1+ (Negative); Nitrite Urine Negative (Negative); Urobilinogen Urine Negative (Negative)
[2024-11-29] MEDS ORDERED: PHENYLEPHRINE HCL 10 MG/ML VIAL ONE (15:17)
[2024-11-29] MEDS ORDERED: fentaNYL citrate PF 100 MCG/2 ML VIAL ONE (15:17)
[2024-11-29] MEDS ORDERED: PHENYLEPHRINE 100MCG/ML 5ML SYR ONE (15:18)
[2024-11-29] MEDS ORDERED: ALBUMIN HUMAN 5% 12.5 GM/250 ML VIAL IV ONE (15:23)
[2024-11-29] MEDS ORDERED: NOREPINEPHRINE BITARTRATE 1 MG/ML 4 ML VIAL IV ONE ×2 (15:23→17:40)
--- NOTE | 2024-11-29 15:39 | Communication Note ---
Date of Service: November 29, 2024 emergency consent pt delirious due to medical illness/does not have capacity to consent no contacts listed no family has been present no friends/family at bedside since i assumed his care; when he was more lucid yesterday he did not mention any family/give any contact information/ask for contact with anyone perforation requiring emergency surgery case d/w dr estes (general surgery) dr navarro (anesthesia) and myself -all in agreement that proceeding is best risk/benefit option -pt himself unable to consent but in our discussions yesterday he seemed to want all done to manage his medical conditions (when we discussed possible ICU transfer he was more than willing) and seems to have no clearly known terminal conditions/was not hospice-palliative or end of life goals - therefore risk/benefit/prudent decision making all line up that surgery and emergency consent are best option (autonomy - he is unable to speak for himself, but seems to have been in a position where he would want to proceed given risk /high mortality without proceeding; beneficence / nonmaleficence both suggest risk/benefit obviously worrisome either way but much higher risk without surgery) proceed with surgery, ICU after
[2024-11-29] MEDS ORDERED: ETOMIDATE 2 MG/ML 20 ML VIAL IV ONE (15:45)
--- NOTE | 2024-11-29 15:50 | Anesthesiology Consultation ---
Date of Service November 29, 2024 Assessment & Plan Chart Review Chart Review: Acceptable Risk for Surgery and Patient NOT seen in Pre Admission Testing Consults Requested none ASA [id number] Proposed Anesthesia Anesthesia Type: General Anesthesia Line Insertion: Arterial line and Central Venous Catheter Risk / Benefits Reviewed With: PT / POA / Parent / Guardian, Accepts Plan and Informed Consent Obtained Additional Comments: doc to doc consent obtained for emergency surgery under GA with central line and a-line. s/p 4u rbc. clinical picture worsening. normal blood pressure and tachycardic on presentation. History Surgery Operation Date: 11/29/24 15:50 Proposed Procedures p Exploratory Laparotomy, Free Air - Winston Caal MD Height/Weight Height: 5 ft 8 in Weight: 66 kg Allergies Allergy/AdvReac Type Severity Reaction Status Date / Time No Known Drug Allergies Allergy Unknown Verified 07/19/24 18:46 Medications Active Medications Generic Name Dose Route Start Last Admin Trade Name Freq PRN Reason Stop Dose Admin Stout Syrup 5 ml 11/29/24 09:00 11/29/24 11:33 Stout Syrup 5 Ml Udp PO 12/09/24 08:59 5 ml DAILY JARED Administration Folic Acid 1 mg 11/28/24 09:00 11/29/24 11:32 Folic Acid 1 Mg Tab PO 12/28/24 08:59 1 mg DAILY JARED Administration Pantoprazole Sodium 40 mg in 10 mls @ 5 mls/min 11/27/24 21:00 11/29/24 08:07 Protonix IV 12/27/24 20:59 5 mls/min BID JARED Administration Ceftriaxone Sodium 2,000 mg in 50 mls @ 100 mls/hr 11/27/24 21:00 11/28/24 20:55 Rocephin IV 12/07/24 20:59 Infused Q24H JARED Infusion Metronidazole 500 mg in 100 mls @ 100 mls/hr 11/27/24 21:00 11/29/24 14:23 Flagyl IV 12/07/24 20:59 Infused Q8H JARED Infusion Protocol Multivitamins 1 tab 11/28/24 09:00 11/29/24 11:32 Multivitamin Tab PO 12/28/24 08:59 1 tab QAM JARED Administration Thiamine HCl 100 mg 11/28/24 09:00 11/29/24 11:32 Thiamine Hcl 100 Mg Tab PO 12/28/24 08:59 100 mg QAM JARED Administration Umeclidinium [place] 1 puffs 11/28/24 09:00 11/29/24 08:04 Umeclidinium [place] 62.5mcg/Blister 7 Puffs/Inhaler INH 12/28/24 08:59 1 puffs DAILY JARED Administration Vancomycin HCl 125 mg 11/29/24 09:00 11/29/24 11:34 Vancomycin Hcl 125 Mg/2.5ml Soln PO 12/09/24 08:59 125 mg DAILY JARED Administration NPO Date Last Intake of Fluids: 11/28/24 Time Last Intake of Fluids: 08:00 Date Last Intake of Solids: 11/27/24 Time Last Intake of Solids: 08:00 Past Medical History Medical History COPD (chronic obstructive pulmonary disease) Macrocytic anemia Coagulopathy Anemia Alcohol dependence Exercise / Class Metabolic Activity III < 4 Walking/Shop/Light housework Past Anesthesia History Other (No known issues, patient obtunded) History of PONV No Hx of PONV Social History Smoking Status: Current every day smoker Smoking cigarettes per day: 20 Do You Dip or Chew Tobacco: No Hx Alcohol Use: Yes Alcohol type: beer alcohol intake frequency: 0-2 drinks per day Alcohol Intake Frequency Comment: last drink 11/26/2024 Hx Substance Use: No substance use type: does not use Last Used Substance Other:: pt will not answer questions Review of Systems ROS Unobtainable: All systems reviewed & are unremarkable except as noted in HPI & below Physical Exam Vital Signs Last Vital Signs Temp 37 C 11/29/24 15:30 Pulse 140 H 11/29/24 15:30 Resp 24 11/29/24 15:30 BP 126/84 11/29/24 15:30 Pulse Ox 92 11/29/24 15:30 O2 Del Method Nasal Cannula 11/29/24 15:30 O2 Flow Rate 3 11/29/24 15:30 ENMT Mouth: no TMJ abnormality Thyromental Distance: > or= 3.5 Finger Breadths Mallampati Class: II Neck normal visual inspection and trachea midline; neck extension not limited Respiratory normal respiratory effort Auscultation: lungs clear to auscultation bilaterally Cardiovascular Rate/Rhythm: regular rate and regular rhythm Heart Sounds: no murmur Musculoskeletal Spine: normal cervical ROM Extremities: full ROM of extremities Neurologic moves all extremities Psychiatric Orientation: alert and oriented x 3 Testing Laboratory Results 11/29/24 09:03 11/29/24 03:36 PT 16.8 Seconds (9.0-12.0) H 11/28/24 05:47 INR 1.6 (0.9-1.1) H 11/28/24 05:47 APTT 21 Seconds (21-31) 11/27/24 14:33 Urine Color [place] 11/29/24 15:01 Urine Appearance Cloudy (Clear) A 11/29/24 15:01 Urine pH 5.5 (4.5-7.5) 11/29/24 15:01 Ur Specific [place] 1.004 (1.000-1.030) 11/29/24 15:01 Urine Protein 1+ (Negative) H 11/29/24 15:01 Urine Glucose (UA) Negative (Negative) 11/29/24 15:01 Urine Ketones Negative (Negative) 11/29/24 15:01 Urine Nitrite Negative (Negative) 11/29/24 15:01 Ur Leukocyte Esterase 1+ (Negative) H 11/29/24 15:01 Urine WBC (Auto) 11-20 /hpf (0-5) H 11/29/24 15:01 Urine RBC (Auto) 6-10 /hpf (0-2) H 11/29/24 15:01 U Hyaline Cast (Auto) 3-5 /lpf (0-2) H 11/29/24 15:01 U Epithel Cells (Auto) 6-10 /hpf (0-2) H 11/29/24 15:01 Urine Bacteria (Auto) None Seen (None Seen) 11/29/24 15:01 Blood Type O Positive 11/27/24 14:38 Antibody Screen NEGATIVE 11/27/24 14:38 11/28/24 Unknown Gram Stain - Final Peritoneal Fluid Aerobic and Anaerobic Culture - Preliminary No growth to date.
--- NOTE | 2024-11-29 15:54 | Urology Consultation ---
<Statement entered by Efe Garcia MD - 11/29/24 16:31> I agree with the documentation by MEI Hou. Maintain arana catheter for now and monitor output. Would avoid bladder scan as it is going to be unreliable in the setting of ascites. Urology will follow along. Date of Consultation November 29, 2024 Assessment & Plan (1) Arana catheter in place: (2) Abdominal ascites: Plan 64 yo/M with a history of alcohol use disorder, severe anemia, bedbug infestation, and COPD who presented via ambulance for evaluation of abdominal pain. He was found to have ascites and severe anemia s/p transfusion and paracentesis yesterday 11/28/2024. He developed worsening abdominal pain and distention today, leukocytosis of 25.[address] scan of abd/pelvis showed pneumoperitoneum and ascites consistent with perforated bowel and is pending exploratory laparotomy with general surgery. Urology consulted for minimal urinary output. Arana catheter was irrigated by nursing and then exchanged. CT imaging shows catheter within the bladder, no significant bladder distention or clot. Creatinine increased to 2.01 today. Bladder scan will not be accurate in the setting of ascites. Suspect that he may have low urine output at present in the setting of acute abdomen. Maintain Arana catheter and continue to monitor. Patient is uncircumcised and did have a paraphimosis on exam which was reduced at bedside. Continue to monitor and ensure that his foreskin is replaced after catheter care. will follow, please contact our service with any additional questions or concerns. History of Present Illness Attending Physician: Oswald Hough DO History of Present Illness This is a 64-year-old male with history of alcohol use disorder, severe anemia, bedbug infestation, and COPD who presented to the emergency department on 11/27/2024 via ambulance for evaluation of abdominal pain. He was reportedly found lying in feces and bedbugs infestation throughout the house. Hemoglobin on arrival was 5.8, stool was heme positive. He had hypernatremia, mildly elevated LFTs, mildly elevated troponin and he was hypotensive and tachycardic. CT abdomen pelvis showed moderate ascites, moderate body wall edema, bilateral inguinal hernias and scattered small bowel thickening consistent with gastroenteritis or secondary to chronic ascites. He has been transfused since arrival and underwent paracentesis on 11/28. Per nursing, he had increased abdominal pain with distention today and repeat CT imaging showed significant pneumoperitoneum and increased ascites concerning for bowel perforation. General surgery is proceeding to the operating room for exploratory laparotomy and possible bowel resection, possible ostomy. Urology is consulted today for Arana catheter not draining. History obtained from chart and nursing due to patient confusion. Per RN, patient's Arana catheter has had low output today. He had small amount of mariel urine this morning. Catheter was irrigated. Bladder scan was ~300mL. Catheter was then exchanged. Bladder scan ~350 mL. Mild pink tinged urine after catheter exchange. No significant hematuria or clots with irrigation. CT imaging today was obtained after catheter exchange per RN. Lab work todaycreatinine 2.01 (previously 1.22) see, WBC 25.54, hemoglobin 8.3. Urinalysis /301+ protein, trace ketones. Urinalysis /311+ protein, 3+ blood, 1+ LE, 11-20 WBC, 6-10 RBC, 6-10 epithelial cells and negative for bacteria. Urine culture pending. Allergies Allergy/AdvReac Type Severity Reaction Status Date / Time No Known Drug Allergies Allergy Unknown Verified 07/19/24 18:46 Patient History Medical History COPD (chronic obstructive pulmonary disease) Macrocytic anemia Coagulopathy Anemia Alcohol dependence Social History Smoking Status: Current every day smoker Tobacco Type: Cigarettes Cigarettes Per Day: 20; Do You Dip or Chew Tobacco: No; Hx Alcohol Use: Yes Alcohol type: beer Hx Substance Use: No Preferred Language: [place] Communication Ability: Effective Resident Service Coordinator Required: No Beliefs That Will Affect Care: None Current Living Situation: Other Current Living Situation Comment: with a friend/civil engineer in training of home Feels Safe at Home: Yes Assistive Devices: None Review of Systems Review of Systems: Unobtainable due to cognitive status Physical Exam Constitutional: + ill appearing and + lethargic; no acut e distress Respiratory: + cough; no respiratory distress supplemental oxygen Gastrointestinal (Abdomen): Inspection/Auscultation: + abdomen distended Percussion/Palpation: + abdomen tender and + abdomen rigid Neurologic: moves all extremities Psychiatric: Orientation: oriented to person Genitourinary: Arana draining small amount of yellow urine in tubing. On exam, patient has penile swelling distal to the glans consistent with paraphimosis. Patient reports he is uncircumcised. Circumferential pressure applied to penis to reduce swelling. Foreskin was replaced to anatomic position. Erythema noted to bilateral inguinal folds. Results & Data Vital Signs (Past 12 Hours) Vital Signs Temp Pulse Pulse Resp BP BP Pulse Ox 11/29/24 15:30 37 C 140 H 24 126/84 92 11/29/24 14:52 142 H 11/29/24 12:55 36.6 C 105 H 18 134/76 94 11/29/24 12:55 36.6 C 110 H 18 134/76 94 11/29/24 11:29 36.7 C 110 H 18 111/68 92 11/29/24 10:29 36.7 C 108 H 18 108/70 93 11/29/24 09:59 36.6 C 105 H 18 116/69 95 11/29/24 09:44 36.6 C 103 H 18 113/70 94 11/29/24 09:24 36.6 C 138 H 18 102/60 92 11/29/24 08:13 36.7 C 107 H 18 93/56 L 95 11/29/24 08:10 11/29/24 07:30 136 H O2 Del Method O2 Flow Rate 11/29/24 15:30 Nasal Cannula 3 11/29/24 14:52 11/29/24 12:55 3 11/29/24 12:55 3 11/29/24 11:29 3 11/29/24 10:29 3 11/29/24 09:59 3 11/29/24 09:44 3 11/29/24 09:24 3 11/29/24 08:13 Nasal Cannula 3 11/29/24 08:10 Nasal Cannula 3 11/29/24 07:30 PG Care Time/CCT Total # of Minutes Spent Total Time Spent with Patient: Total time spent is greater than 50% in coordination of care (as documented) at patient's floor/unit and/or counseling patient: Coding Level of Care Code 70114 IN/OBS CONSULT LVL 5,80M Diagnoses Arana catheter in place Z97.8 Abdominal ascites K70.31 Ascites type: due to alcoholic cirrhosis (2) Abdominal ascites Ascites type: due to alcoholic cirrhosis Qualified Code(s): K70.31 - Alcoholic cirrhosis of liver with ascites
[2024-11-29 16:31] LABS: Chloride Random Urine 36 mmol/L; Creatinine Urine Random 3.9 mg/dl; Potassium Random Urine < 2.0 mmol/L; Sodium Random Urine 36 mmol/L
[2024-11-29] MEDS ORDERED: SODIUM BICARB 8.4% INJ 50 MEQ/50 ML SYR IV ONE (16:43)
[2024-11-29] MEDS ORDERED: CALCIUM CHLORIDE 10% 10 ML SYR IV ONE (16:43)
[2024-11-29] MEDS ORDERED: MIDAZOLAM HCL 1 MG/ML 2ML VIAL ONE (17:07)
--- NOTE | 2024-11-29 17:24 | Operative Report ---
Post Operative Report Pre & Post Diagnosis Operation Date: 11/29/24 15:50 Perforated proximal jejunum I identified the patient and participated in the time-out.: Yes Procedure Operation Date: 11/29/24 15:50 Exploratory laparotomy with proximal jejunal resection and primary side to side anastomosis Surgeon Winston Caal MD Vegetable Picker Lilia Oquendo PA-C Estimated Blood Loss 50 Findings Consistent with Post-Op Diagnosis Proximal jejunal perforation, 2 cm in diameter Specimens Proximal jejunum Drains Giancarlo drain placed near the anastomosis Anesthesia Type General Complications None Indications This is a 64-year-old left-handed male who is seen to recall about a CT scan which showed free air and marginal fluid in his abdomen. On exam he had peritoneal signs he was not communicative. We were able to discuss options with him. We had a discussion with anesthesia, hospitalist and me; it was determined to proceed with exploratory laparotomy. Description of Procedure The patient was taken to the OR and underwent excellent general endotracheal anesthesia. They received antibiotics preoperatively. Their abdomen was then prepped and draped normal sterile fashion. A midline incision was made and dissection was taken down to identify the fascia. The fascia was excised in the midline. The peritoneal cavity was entered easily and a large amount of turbid green fluid was suctioned, approximately 3L was suctioned. Exploration was done and there was a large 2 cm perforation of the proximal jejunum just distal to the Ligament of Treitz. The ligament was mobilized sharply and bleeding controlled with clips. A SIM stapler was used to transect the ulcer proximally and distally. The mesentery was clamped with ties. The distal and proximal ends were approximated and a [id number] stapled anastomosis was created with a SIM stapler. The defect was also closed with a SIM stapler. Suture lines were reinforced with silks. The ileocecal valve was then identified and the bowel was run from the ileocecal valve to the ligament of Treitz with no adhesive bands and no sign no obstructive issues. The abdomen was then irrigated out and suctioned to clear. Small bowel was once again run from ileocecal valve to ligament of Treitz with no bands or issues. The colon was normal and the stomach and duodenum was also normal. An NG tube was placed into the distal stomach under guidance. Small bowel was replaced and the omentum was placed on top of the small bowel. A Giancarlo drain was placed near the anastomosis. The fascia was then closed with a running PDS suture. Ashley used to close the skin. A sterile dressing was applied. Patient tolerated the procedure without complications. They will remain intubated and taken to ICU for his care. Lilia Oquendo PA-C was present and participated in the entire procedure. She was integral in skin closure, retraction, and the performance of the operation. There was no qualified resident available to assist. I attest to the content of the Intraoperative Record and any orders documented therein. Any exceptions are noted below.
[2024-11-29] MEDS ORDERED: VASOPRESSIN 20 UNIT/ML VIAL ONE (17:40)
[2024-11-29] MEDS ORDERED: STAT IV Infusion **Titration per Protocol STA (17:43)
[2024-11-29 17:55] LABS: iSTAT Arterial Blood Gas HCO3 16 meg/L (19-24); iSTAT Arterial Blood Gas pCO2 41 mmHg (35-46); iSTAT Arterial Blood Gas pO2 132 mmHg (80-95); iSTAT Carbon Dioxide 17 mmol/L (24-31); iSTAT Hematocrit 31 % (42-52); iSTAT Hemoglobin 10.5 g/dl (14.0-18.0); iSTAT Potassium 4.7 mmol/L (3.3-5.0); iSTAT Sample Type Arterial; iSTAT Sodium 145 mmol/L (135-144)
[2024-11-29 18:00] LABS: iSTAT Art Bld Gas pCO2 Correct 44 mmHg (35-46); iSTAT Art Bld Gas pH Corrected 7.222 (7.35-7.45); iSTAT Arterial Blood Gas HCO3 18 meg/L (19-24); iSTAT Arterial Blood Gas pCO2 46 mmHg (35-46); iSTAT Arterial Blood Gas pH 7.21 (7.35-7.45); iSTAT Arterial Blood Gas pO2 274 mmHg (80-95); iSTAT Arterial Blood Gas pO2 C 270; iSTAT Carbon Dioxide 20 mmol/L (24-31); iSTAT FiO2 100 %; iSTAT Hematocrit 27 % (42-52); iSTAT Hemoglobin 9.2 g/dl (14.0-18.0); iSTAT Potassium 4.3 mmol/L (3.3-5.0); iSTAT Sample Type Arterial; iSTAT Site Art Line; iSTAT Sodium 147 mmol/L (135-144)
--- NOTE | 2024-11-29 18:00 | Anesthesiology Progress Note ---
Date of Service November 29, 2024 Anesthesia Post Procedure Vital Signs Vital Signs: Temp Pulse Pulse Resp BP BP Pulse Ox 11/29/24 17:42 36.3 C L 133 H 16 150/78 H 100 11/29/24 17:39 11/29/24 17:32 126 H 11/29/24 17:32 36.8 C 135 H 16 167/62 H 96 11/29/24 17:22 36.7 C 133 H 16 134/63 69 L 11/29/24 15:30 37 C 140 H 24 126/84 92 11/29/24 14:52 142 H 11/29/24 12:55 36.6 C 105 H 18 134/76 94 11/29/24 12:55 36.6 C 110 H 18 134/76 94 11/29/24 11:29 36.7 C 110 H 18 111/68 92 11/29/24 10:29 36.7 C 108 H 18 108/70 93 11/29/24 09:59 36.6 C 105 H 18 116/69 95 11/29/24 09:44 36.6 C 103 H 18 113/70 94 11/29/24 09:24 36.6 C 138 H 18 102/60 92 11/29/24 08:13 36.7 C 107 H 18 93/56 L 95 11/29/24 08:10 11/29/24 07:30 136 H 11/29/24 03:18 36.5 C 129 H 16 107/68 92 11/28/24 23:36 36.7 C 132 H 20 105/69 94 11/28/24 23:33 130 H 11/28/24 21:18 11/28/24 19:55 36.8 C 135 H 20 102/66 97 O2 Del Method O2 Flow Rate FiO2 11/29/24 17:42 Mechanical Vent 100 11/29/24 17:39 100 11/29/24 17:32 11/29/24 17:32 Mechanical Vent 100 11/29/24 17:22 Mechanical Vent 50 11/29/24 15:30 Nasal Cannula 3 11/29/24 14:52 11/29/24 12:55 3 11/29/24 12:55 3 11/29/24 11:29 3 11/29/24 10:29 3 11/29/24 09:59 3 11/29/24 09:44 3 11/29/24 09:24 3 11/29/24 08:13 Nasal Cannula 3 11/29/24 08:10 Nasal Cannula 3 11/29/24 07:30 11/29/24 03:18 Nasal Cannula 3 11/28/24 23:36 Nasal Cannula 3 11/28/24 23:33 11/28/24 21:18 Nasal Cannula 3 11/28/24 19:55 Nasal Cannula 3 Pain Intensity Upper Abdomen: Pain Intensity: 8 Transfer of Care Handoff Completed per policy Notes Mental Status: alert / awake / arousable Patient Amnestic to Procedure: Yes Nausea / Vomiting: adequately controlled Pain: adequately controlled Airway Patency, RR, SpO2: see Notes below BP & HR: see Notes below Hydration State: see Notes below Anesthetic Complications: no major complications apparent and see Notes below Notes: Patient was emergently taken to OR. Pre induction right radial a-line placed. Upon induction of anesthesia, emesis noted in oropharynx. Immediate suction applied and patient subsequently intubated. Bilateral breath sounds, rhonchorus on left. Patient hemodynamics required vasopressor support post-induction, Right IJ and left EJ placed. Upon incision, >2L ascitic fluid drained. Replaced with 750 cc of albumin as well as 1.5 L LR total in case. Surgeon resected bowel in s/o small bowel perforation. i-Stat intraop revealed pH 7.2, treated with bicarb. 1 g calcium given. Hb stable at 10. Patient transported to ICU intubated and on 0.2 mcg/kg/min norepi. Handoff to ICU and signed off care.
--- NOTE | 2024-11-29 18:03 | Anesthesia Procedure Note ---
Anesthesia Procedure Note Arterial Line Note Patient medical history, medications, allergies and vitals reviewed Date of procedure: 11/29/24 Consent: Risk / Benefits Reviewed With: Emergency Monitors attached: Blood Pressure, CO2, EKG and Pulse Oximetry Oxygen delivery method: Mask Time out completed: Yes Premedication: Fentanyl (mcg) Hand hygeine: Soap and water and Alcohol based hand rub Equipment/Supplies: Cap, Mask, Sterile gown, Sterile gloves, Sterile drapes and Sterile procedures used Skin prep: Chloraprep Local medication: 1% Lidocaine (ml) Ultrasound used: Yes Attempts: 1 Procedure Summary: 20 gauge angiocath advanced until return of bright red blood and needle was advanced beyond the artery using a through and through technique. Needle was removed and catheter withdrawn until return of pulsatile red blood. An arterial wire was advanced through the catheter and into the artery and the catheter was then treaded into place over the wire. The wire was removed and the catheter secured with tape and covered with occlusive dressing. Waveform consistent with correct arterial placement. After placement, normal perfusion was observed distal to the site of catheter placement. Post-Procedure: Pt hemodynamically stable, Pt tolerates well and No complication Central Line Note Last set of vitals: Patient medical history, medications, allergies and vitals reviewed. Indication: Central intravenous access Consent: Risk / Benefits Reviewed With: Emergency Monitors attached: Blood Pressure, CO2, EKG and Pulse Oximetry Time out completed: Yes Premedication: General anesthesia Laterality: Right Location: Internal Jugular Surgical Prep: Hand hygeine: Soap and water and Alcohol based hand rub Equipment/Supplies: Cap, Mask, Sterile gown, Sterile gloves, Sterile drapes and Sterile procedures used Skin prep: Chloraprep Ultrasound Guidance: Ultrasound used: Yes US equipment and supplies: Sterile Gel and Sterile Probe Cover Central line lumen: Triple Catheter sutured at: CM (16) Attempts: 1 Procedure Summary: Patient was positioned with cannulated vein in dependent position. Good return of dark, nonpulsatile blood after needle placement. Guidewire threaded easily and was verified in the vein by ultrasound. Accessed vessel was transduced prior to dilation. After dilation, the catheter advanced easily over the guide wire. Guide wire was removed and the catheter was sutured in place. Antibiotic disc placed and site covered with occlusive dressing. All ports aspirated and flushed. Post-Procedure: Pt hemodynamically stable, Pt tolerates well, No complication and Post placement CXR ordered
[2024-11-29] MEDS ORDERED: MoRPHine SULFATE 2 MG/ML CARP IV PRN (18:05)
[2024-11-29] MEDS ORDERED: MoRPHine SULFATE 4 MG/ML 1 ML CARP\\VIAL IV PRN (18:05)
[2024-11-29] MEDS: fentaNYL citrate 2,500 MCG/250 ML BAG IV SCH (18:07)
[2024-11-29] MEDS: fentaNYL citrate 2,500 MCG/250 ML BAG IV ONE (18:07)
--- NOTE | 2024-11-29 18:07 | XRay Report ---
EXAM: Radiograph of the Chest 1 View INDICATION: Intubation. TECHNIQUE: Frontal view of the chest. COMPARISON: 11/27/2024 FINDINGS: Lungs and pleural spaces: Small bilateral pleural effusions present. No definite pneumothorax. Increased bilateral basilar airspace consolidation. Mild pulmonary edema present. Heart: Stable large cardiac shadow. Mediastinum: Normal contour. Bones/joints: No fracture, erosion or dislocation. Soft tissues: Moderate christiano of free air noted in the upper abdomen with recent laparotomy skin manjit present. Tubes, lines and devices: The endotracheal tube terminates 6.7 cm above the aurea. Right internal jugular central venous catheter tip in the mid superior vena cava. Nasogastric tube tip in the gastric fundus. There is a catheter projecting in the left upper quadrant. Upper abdomen: No abnormality noted. IMPRESSION: 1. Bilateral pleural effusions and bilateral airspace consolidation. Consider mucous plugging. Component of CHF not excluded. 2. Moderate christiano of free air noted in the upper abdomen with recent laparotomy skin manjit present. Free air is not unusual following laparotomy. Correlate clinically. 3. Lines and tubes as above. ACT 112: Negative or not required by law. Electronically signed by Quiana Isidro 11-29-2024 6:06 PM
[2024-11-29] MEDS: SODIUM BICARB 8.4% INJ 50 MEQ/50 ML SYR IV STA (18:13)
[2024-11-29] MEDS: SODIUM BICARB 8.4% INJ 50 MEQ/50 ML SYR IV ONE (18:15)
[2024-11-29] MEDS: ALBUMIN 25% 12.5 GM/50 ML VIAL IV SCH (18:34)
[2024-11-29] MEDS: INFLUENZA VACC TS2024-25(6m+)/PF (IIV3) 0.5mL Syr IM ONE (18:40)
[2024-11-29 18:45] LABS: Hematocrit (blood only) 29.3 % (42.0-52.0); Hemoglobin 8.4 g/dl (14.0-18.0); Mean Corpuscular Hemoglobin 22.1 pg (25.0-34.0); Mean Corpuscular Hgb Conc 28.7 g/dL (32.0-36.0); Mean Corpuscular Volume 77.1 fL (80.0-100.0); Nucleated RBC # (auto) 0.66 K/uL (0.00-0.12); Nucleated RBC % (auto) 3.1 %; Platelet Count 169 K/uL (130-400); RDW Coefficient of Variation 28.4 % (11.5-14.5); RDW Standard Deviation 76.4 fL (36.4-46.3); White Blood Count 20.99 K/ul (4.8-10.8)
[2024-11-29 18:50] LABS: Albumin Globulin Ratio 2.6 (0.9-2); Albumin Level 3.4 gm/dl (3.4-5.0); BUN Creatinine Ratio 23.6 (10-20); Bilirubin,Total 2.6 mg/dl (0.2-1.0); Calcium 8.2 mg/dl (8.6-10.3); Creatinine Clr Calc Pharmacy 30.2 ml/min; Globulin 1.3 gm/dl (2.5-4.0); Potassium 4.5 mmol/L (3.5-5.1); Total Protein 4.7 gm/dl (6.0-8.3)
--- NOTE | 2024-11-29 20:17 | Electrocardiogram Report ---
Test Reason : Blood Pressure : */* mmHG Vent. Rate : 151 BPM Atrial Rate : * BPM P-R Int : * ms QRS Dur : 76 ms QT Int : 298 ms P-R-T Axes : * 90 73 degrees QTcB Int : 472 ms Supraventricular tachycardia vs sinus tachycardia Rightward axis Septal infarct , age undetermined Abnormal ECG When compared with ECG of 27-Nov-2024 14:13, Nonspecific T wave abnormality, improved in Lateral leads Confirmed by Gregorio Landrum ([id number]) on 11/29/2024 8:16:50 PM Referred By: REFERRED SELF Confirmed By: Gregorio Landrum
[2024-11-29 20:53] LABS: Hematocrit (blood only) 27.4 % (42.0-52.0); Hemoglobin 8.2 g/dl (14.0-18.0); Mean Corpuscular Hemoglobin 22.4 pg (25.0-34.0); Mean Corpuscular Hgb Conc 29.9 g/dL (32.0-36.0); Mean Corpuscular Volume 74.9 fL (80.0-100.0); Nucleated RBC # (auto) 0.46 K/uL (0.00-0.12); Nucleated RBC % (auto) 2.6 %; Platelet Count 146 K/uL (130-400); RDW Coefficient of Variation 28.8 % (11.5-14.5); RDW Standard Deviation 74.7 fL (36.4-46.3); Red Blood Count 3.66 M/uL (4.70-6.10); White Blood Count 17.69 K/ul (4.8-10.8)
[2024-11-29] MEDS: ICU Protocol for HYPERglycemia SCH (22:39)
[2024-11-30] MEDS: NOREPINEPHRINE/D5W 4 MG/250 ML IV ONE (03:48)
[2024-11-30] MEDS: MIDAZOLAM HCL 5 MG/ML 2ML VIAL IV STA (04:25)
[2024-11-30] MEDS: NOREPINEPHRINE/D5W 4 MG/250 ML PLCT IV SCH (04:30)
[2024-11-30 04:32] LABS: Hematocrit (blood only) 26.5 % (42.0-52.0); Hemoglobin 7.7 g/dl (14.0-18.0); Mean Corpuscular Hemoglobin 21.8 pg (25.0-34.0); Mean Corpuscular Hgb Conc 29.1 g/dL (32.0-36.0); Mean Corpuscular Volume 75.1 fL (80.0-100.0); Nucleated RBC # (auto) 0.31 K/uL (0.00-0.12); Nucleated RBC % (auto) 1.7 %; Platelet Count 118 K/uL (130-400); Red Blood Count 3.53 M/uL (4.70-6.10); White Blood Count 18.39 K/ul (4.8-10.8)
[2024-11-30 04:40] LABS: BUN Creatinine Ratio 25.3 (10-20); Creatinine Clr Calc Pharmacy 30.7 ml/min; Magnesium 2.3 mg/dl (1.7-2.4); Phosphorus 5.8 mg/dl (2.5-4.9); Potassium 4.1 mmol/L (3.5-5.1)
[2024-11-30 04:41] LABS: iSTAT Allen Test Pass; iSTAT Art Bld Gas pCO2 Correct 41 mmHg (35-46); iSTAT Art Bld Gas pH Corrected 7.311 (7.35-7.45); iSTAT Arterial Blood Gas HCO3 21 meg/L (19-24); iSTAT Arterial Blood Gas pCO2 41 mmHg (35-46); iSTAT Arterial Blood Gas pH 7.31 (7.35-7.45); iSTAT Arterial Blood Gas pO2 110 mmHg (80-95); iSTAT Arterial Blood Gas pO2 C 109; iSTAT Carbon Dioxide 22 mmol/L (24-31); iSTAT FiO2 45 %; iSTAT Hematocrit 25 % (42-52); iSTAT Hemoglobin 8.5 g/dl (14.0-18.0); iSTAT Sample Type Arterial; iSTAT Site L Radial; iSTAT Sodium 150 mmol/L (135-144); iSTAT SpO2 99
[2024-11-30 04:47] LABS: Anisocytosis Present; Basophils # (auto) 0.12 K/uL (0.00-0.20); Basophils % (auto) 0.7 %; Hypochromasia Present; Immature Granulocytes # (auto) 0.12 K/uL (0.01-0.20); Immature Granulocytes % (auto) 0.7 %; Lymphocytes # (auto) 1.19 K/uL (1.20-3.40); Lymphocytes % (auto) 6.5 %; Monocytes # (auto) 0.79 K/uL (0.11-0.59); Monocytes % (auto) 4.3 %; Neutrophils # (auto) 16.17 K/uL (1.40-6.50); Neutrophils % (auto) 87.8 %; Poikilocytosis Present; Polychromasia 2+
[2024-11-30 04:56] LABS: INR 1.8 (0.9-1.1); Prothrombin Time 18.3 Seconds (9.0-12.0)
[2024-11-30] MEDS ORDERED: STAT IV Infusion **Titration per Protocol STA ×2 (06:24→18:38)
--- NOTE | 2024-11-30 07:45 | XRay Report ---
EXAM: XR chest 1V portable CLINICAL HISTORY: RESPIRATORY FAILURE. TECHNIQUE: An X-ray image of the chest was obtained in 1 view: AP projection. COMPARISON: X-ray dated 11/29/2024. FINDINGS: Rotated patient. Pulmonary Parenchyma: Redemonstration of inhomogeneous airspace opacification of right lung lower zone with obscuration of costophrenic angle, suggestion of small pleural effusion with subsegmental collapse/consolidation. Bilateral prominent bronchovascular markings (unchanged). Heart and Mediastinum: Cardiomegaly. No hilar lymphadenopathy Bony Thorax: Bony thorax appears intact without fractures or deformities. Soft Tissues: Soft tissues overlying the chest wall are unremarkable. Lines: ETT in situ with distal tip 5.8 cm above aurea (satisfactory). Right subclavian approach venous line in place with distal tip seen in superior vena cava (satisfactory). NG tube in place with the distal tip not seen, however below hemidiaphragm. IMPRESSION: 1. Redemonstration of inhomogeneous airspace opacification of right lung lower zone with obscuration of costophrenic angle, suggestion of small pleural effusion with subsegmental collapse/consolidation. 2. Cardiomegaly. 3. ETT in situ with distal tip 5.8 cm above aurea (satisfactory).. 4. Right subclavian approach venous line in place with distal tip seen in superior vena cava (satisfactory). 5. NG tube in place with the distal tip not seen, however below hemidiaphragm. Electronically signed by Fifi Mace 11-30-2024 07:45 AM
--- NOTE | 2024-11-30 08:15 | Critical Care Progress Note ---
Date of Service November 30, 2024 Assessment & Plan (1) Pneumoperitoneum: (2) History of Clostridioides difficile infection: (3) Abdominal ascites: (4) Pleural effusion: (5) GIB (gastrointestinal bleeding): (6) PSVT (paroxysmal supraventricular tachycardia): (7) Aspiration into lower respiratory tract: (8) Bed bug bite: (9) Alcohol abuse: (10) Transaminitis: (11) ISA (acute kidney injury): (12) COPD (chronic obstructive pulmonary disease): (13) High anion gap metabolic acidosis: Plan Reason Critically Ill: 64-year-old male was admitted to the hospital for GI bleed. Patient was found to have pneumoperitoneum as well as ISA and was transferred to ICU for further management Past medical history: Alcohol abuse, COPD, ascites Neuro - [facility] ICU: Unable to assess Sedation with fentanyl Given the history of liver cirrhosis avoid benzodiazepines Cardiac - -- Shock Likely combination of sepsis as well as anesthesia Continue vasopressor support to keep MAP greater than 65 Respiratory - --Intubated for the OR Aspiration episode during intubation Continue with ventilatory support Keep RASS -1 Daily sedation holidays and SBT's Chlorhexidine mouthwash -- Bilateral pleural effusion R>L Etiology is likely ascitic fluid Will try to diurese if possible if no improvement then thoracentesis will be considered --Active smoker with probable COPD Does not seem to be bronchospastic GI - -- Pneumoperitoneum secondary to jejunal perforation Patient did have paracentesis done 11/28/2024 S/p surgery 11/29/2024, surgery following Continue with antibiotics -- History of C. difficile On prophylactic vancomycin RENAL/LYTES - -- ISA Probability of hepatorenal syndrome Also was hypotensive on 11/28/2024 Urine sodium 34 Nephrology on board --Hypernatremia Free water deficit around 3.2 L on 11/30/2024 - -Continue with Sheth catheter- ENDO - -- ICU hypoglycemia protocol HEME - -- Acute blood loss anemia S/p 2 units PRBC Monitor H&H GI on board ID - -- SBP with perforation of jejunum Continue with antibiotics for anaerobic as well as gram-negative coverage --Prophylaxis VTE: IPC GI: Pantoprazole Lines: Right IJ, right radial, positive ETT, positive Sheth Diet: N.p.o. Plan: In/out: +556, urine output 400 mL ABG 7.31/41/110 on 60% FiO2 PEEP of 8 Free water deficit is 3.2 L, I will start the patient on D5 water 125 mL an hour for total of 3 L Try to keep the MAP around 70 Given that he is already on vasopressor support. No need to start octreotide or midodrine. Continue with albumin 37.5 g on a daily basis for the next 4 days Will try to do thoracentesis today Overall prognosis is guarded If there is no improvement in the next 24-48 hours then palliative approach would be appropriate I have personally spent 46 minutes of critical care time in the direct management of this patient. This is a life/limb threatening event. This includes time spent evaluating patient, direct bedside care, chart review, placing orders, interpretation of diagnostic studies, discussion with consultants, patient, and family members, as well as other required patient management activities. This time is exclusive of all separately billable procedures, and teaching time and separate from and in addition to any other critical care service time. Admission and Anticipated Discharge Date Admission Date: November 27, 2024 Subjective Patient seen and examined at bedside. No acute distress, no adverse events overnight He was on 75 cm at time of examination, 0.09 on Levophed Saturating well on 35% FiO2 He was not following any commands, he was breathing with the vent. Has been afebrile Review of Systems 2 Review of Systems: Unobtainable due to endotracheal tube Physical Exam 2 Physical Exam: Constitutional: No acute distress, frail-appearing HEENT: PERRLA Respiratory system: Decreased air entry bilaterally, more decreased on the right side, no wheeze, no rhonchi, positive crackles bilaterally CVS: S1-S2 positive, no murmurs or gallops, tachycardia Abdomen: Soft, nontender, nondistended, decreased bowel sounds x4, dressing with ESTRELLITA drain in place Extremities: +2 pulses bilaterally radialis/ dorsalis pedis, no cyanosis, +2 pitting edema bilateral lower extremity Neuro: Intubated and sedated, breathing with the vent Psych: Unable to assess G/U: Positive Sheth Skin: no rashes, warm and dry Lymphatic: no cervical or axillary lymphadenopathy Results & Data Results & Data Vital Signs (Past 12 Hours) Vital Signs Pulse Resp BP Pulse Ox FiO2 11/30/24 07:10 130 H 24 96 35 11/30/24 06:15 134 H 24 97 11/30/24 06:15 110/58 L 11/30/24 06:15 110/58 L 11/30/24 06:15 110/58 L 11/30/24 06:09 130 H 24 98 11/30/24 05:30 108/58 L 11/30/24 05:21 137 H 24 95 11/30/24 05:03 137 H 24 94 11/30/24 05:00 104/56 L 11/30/24 05:00 104/56 L 11/30/24 04:54 135 H 24 95 11/30/24 04:45 137 H 24 95 11/30/24 04:45 99/54 L 11/30/24 04:45 99/54 L 11/30/24 04:36 84/49 L 11/30/24 04:36 139 H 24 95 11/30/24 04:35 75/47 L 11/30/24 04:05 89 22 96 45 11/30/24 04:00 60 11/30/24 03:54 83 22 97 11/30/24 03:45 96/53 L 11/30/24 03:45 96/53 L 11/30/24 03:45 88 22 94 11/30/24 03:15 94/55 L 11/30/24 03:15 94/55 L 11/30/24 03:00 86 22 95 11/30/24 03:00 89/51 L 11/30/24 03:00 89/51 L 11/30/24 02:45 87 22 94 11/30/24 02:45 92/55 L 11/30/24 02:45 92/55 L 11/30/24 02:45 92/55 L 11/30/24 02:30 85 22 93 11/30/24 02:30 95/52 L 11/30/24 02:15 131 H 22 97 11/30/24 02:15 99/55 L 11/30/24 02:15 99/55 L 11/30/24 02:15 99/55 L 11/30/24 02:09 132 H 22 98 11/30/24 02:00 100/57 L 11/30/24 01:45 102/58 L 11/30/24 01:39 131 H 22 98 11/30/24 01:30 106/59 L 11/30/24 01:30 106/59 L 11/30/24 01:18 132 H 22 96 11/30/24 01:15 130 H 22 96 11/30/24 01:15 107/57 L 11/30/24 01:15 107/57 L 11/30/24 01:15 107/57 L 11/30/24 01:00 133 H 22 97 11/30/24 01:00 101/57 L 11/30/24 01:00 101/57 L 11/30/24 00:00 60 11/29/24 23:38 73 22 100 60 Laboratory Results 11/30/24 03:53 11/30/24 03:53 Coding Level of Care Code 93478 CRITICAL CARE 1ST 30-74M Diagnoses Pneumoperitoneum K66.8 History of Clostridioides difficile infection Z86.19 Abdominal ascites K70.31 Ascites type: due to alcoholic cirrhosis Pleural effusion J90 GIB (gastrointestinal bleeding) K92.2 GI bleed type/associated pathology: unspecified gastrointestinal hemorrhage type PSVT (paroxysmal supraventricular tachycardia) I47.10 Aspiration into lower respiratory tract T17.800A Bed bug bite W57.XXXA Encounter type: initial encounter Alcohol abuse F10.10 Transaminitis R74.01 ISA (acute kidney injury) N17.9 COPD (chronic obstructive pulmonary disease) J44.9 High anion gap metabolic acidosis E87.29 (3) Abdominal ascites Ascites type: due to alcoholic cirrhosis Qualified Code(s): K70.31 - Alcoholic cirrhosis of liver with ascites (5) GIB (gastrointestinal bleeding) GI bleed type/associated pathology: unspecified gastrointestinal hemorrhage type Qualified Code(s): K92.2 - Gastrointestinal hemorrhage, unspecified (8) Bed bug bite Encounter type: initial encounter Qualified Code(s): W57.XXXA - Bitten or stung by nonvenomous insect and other nonvenomous arthropods, initial encounter
--- NOTE | 2024-11-30 09:07 | Surgery Progress Note ---
Date of Service November 30, 2024 Assessment & Plan (1) Small bowel perforation: Plan: con't NG await bowel function prior to tube feeds, 2-3 days IV abx wean vent per ICU team Admission and Anticipated Discharge Date Admission Date: November 27, 2024 Subjective POD#1 ex lap with large proximal jejunal perforation requiring resection intubated, sedated Review of Systems Constitutional: no fever and no chills Psychiatric: + behavioral changes Physical Exam Constitutional: WD/WN, vitals as above Eyes: + anicteric sclerae Respiratory: no labored breathing Cardiovascular: Rate/Rhythm: + tachycardic Gastrointestinal (Abdomen): Inspection/Auscultation: abdomen normal to inspection, + abdomen distended and + abdominal surgical incision; + abnormal bowel sounds Percussion/Palpation: + abdomen tender and abdomen soft; no guarding and abdomen not rigid Giancarlo with serosanguinous drainage Musculoskeletal: Head/Neck/Chest: normocephalic and head atraumatic Skin: no rashes, warm and dry Results & Data Vital Signs (Past 12 Hours) Vital Signs Pulse Resp BP Pulse Ox FiO2 11/30/24 08:00 35 11/30/24 08:00 140 H 11/30/24 07:10 130 H 24 96 35 11/30/24 06:15 134 H 24 97 11/30/24 06:15 110/58 L 11/30/24 06:15 110/58 L 11/30/24 06:15 110/58 L 11/30/24 06:09 130 H 24 98 11/30/24 05:30 108/58 L 11/30/24 05:21 137 H 24 95 11/30/24 05:03 137 H 24 94 11/30/24 05:00 104/56 L 11/30/24 05:00 104/56 L 11/30/24 04:54 135 H 24 95 11/30/24 04:45 137 H 24 95 11/30/24 04:45 99/54 L 11/30/24 04:45 99/54 L 11/30/24 04:36 84/49 L 11/30/24 04:36 139 H 24 95 11/30/24 04:35 75/47 L 11/30/24 04:05 89 22 96 45 11/30/24 04:00 60 11/30/24 03:54 83 22 97 11/30/24 03:45 96/53 L 11/30/24 03:45 96/53 L 11/30/24 03:45 88 22 94 11/30/24 03:15 94/55 L 11/30/24 03:15 94/55 L 11/30/24 03:00 86 22 95 11/30/24 03:00 89/51 L 11/30/24 03:00 89/51 L 11/30/24 02:45 87 22 94 11/30/24 02:45 92/55 L 11/30/24 02:45 92/55 L 11/30/24 02:45 92/55 L 11/30/24 02:30 85 22 93 11/30/24 02:30 95/52 L 11/30/24 02:15 131 H 22 97 11/30/24 02:15 99/55 L 11/30/24 02:15 99/55 L 11/30/24 02:15 99/55 L 11/30/24 02:09 132 H 22 98 11/30/24 02:00 100/57 L 11/30/24 01:45 102/58 L 11/30/24 01:39 131 H 22 98 11/30/24 01:30 106/59 L 11/30/24 01:30 106/59 L 11/30/24 01:18 132 H 22 96 11/30/24 01:15 130 H 22 96 11/30/24 01:15 107/57 L 11/30/24 01:15 107/57 L 11/30/24 01:15 107/57 L 11/30/24 01:00 133 H 22 97 11/30/24 01:00 101/57 L 11/30/24 01:00 101/57 L 11/30/24 00:00 60 11/29/24 23:38 73 22 100 60
[2024-11-30] MEDS: DEXTROSE 5% 1,000 ML IV SCH (09:50)
[2024-11-30] MEDS: 4.5GM X1 IV SCH (10:05)
--- NOTE | 2024-11-30 10:41 | Urology Progress Note ---
Date of Service November 30, 2024 Assessment & Plan (1) Sheth catheter in place: Plan: Sheth catheter appears to be in good position and is draining well without any hematuria. Would continue this in place until he is extubated and more alert. Voiding trial could be attempted at that point. With history of ascites, bladder scan will be unreliable. Continue to monitor urine output. No plan for further urologic intervention at this point. Would defer to primary team and ICU team for ongoing care. Urology will sign off, please call with any questions or concerns. Admission and Anticipated Discharge Date Admission Date: November 27, 2024 Subjective Patient intubated, unable to provide any additional history this morning No issues with Sheth catheter overnight, has been draining well although output may be somewhat low. No hematuria. Underwent surgical exploration/exploratory laparotomy and found to have perforated jejunum on 11/29 Physical Exam Physical Exam: Intubated, sedated Sheth catheter in place draining concentrated appearing urine Results & Data Vital Signs (Past 12 Hours) Vital Signs Pulse Resp BP Pulse Ox FiO2 11/30/24 08:00 35 11/30/24 08:00 140 H 11/30/24 07:10 130 H 24 96 35 11/30/24 06:15 134 H 24 97 11/30/24 06:15 110/58 L 11/30/24 06:15 110/58 L 11/30/24 06:15 110/58 L 11/30/24 06:09 130 H 24 98 11/30/24 05:30 108/58 L 11/30/24 05:21 137 H 24 95 11/30/24 05:03 137 H 24 94 11/30/24 05:00 104/56 L 11/30/24 05:00 104/56 L 11/30/24 04:54 135 H 24 95 11/30/24 04:45 137 H 24 95 11/30/24 04:45 99/54 L 11/30/24 04:45 99/54 L 11/30/24 04:36 84/49 L 11/30/24 04:36 139 H 24 95 11/30/24 04:35 75/47 L 11/30/24 04:05 89 22 96 45 11/30/24 04:00 60 11/30/24 03:54 83 22 97 11/30/24 03:45 96/53 L 11/30/24 03:45 96/53 L 11/30/24 03:45 88 22 94 11/30/24 03:15 94/55 L 11/30/24 03:15 94/55 L 11/30/24 03:00 86 22 95 11/30/24 03:00 89/51 L 11/30/24 03:00 89/51 L 11/30/24 02:45 87 22 94 11/30/24 02:45 92/55 L 11/30/24 02:45 92/55 L 11/30/24 02:45 92/55 L 11/30/24 02:30 85 22 93 11/30/24 02:30 95/52 L 11/30/24 02:15 131 H 22 97 11/30/24 02:15 99/55 L 11/30/24 02:15 99/55 L 11/30/24 02:15 99/55 L 11/30/24 02:09 132 H 22 98 11/30/24 02:00 100/57 L 11/30/24 01:45 102/58 L 11/30/24 01:39 131 H 22 98 11/30/24 01:30 106/59 L 11/30/24 01:30 106/59 L 11/30/24 01:18 132 H 22 96 11/30/24 01:15 130 H 22 96 11/30/24 01:15 107/57 L 11/30/24 01:15 107/57 L 11/30/24 01:15 107/57 L 11/30/24 01:00 133 H 22 97 11/30/24 01:00 101/57 L 11/30/24 01:00 101/57 L 11/30/24 00:00 60 11/29/24 23:38 73 22 100 60 PG Care Time/CCT Total # of Minutes Spent Total Time Spent with Patient: Total time spent is greater than 50% in coordination of care (as documented) at patient's floor/unit and/or counseling patient: Coding Level of Care Code 83785 SUB INP/OBS CARE 12/24MIN Diagnoses Sheth catheter in place Z97.8
--- NOTE | 2024-11-30 11:28 | Nephrology Consultation ---
Date of Consultation November 30, 2024 Assessment & Plan (1) ISA (acute kidney injury): * ISA, likely ATN due to septic shock * Volume status and electrolyte balance are acceptable (SaO2 97% on FiO2 35%). UO was 400 cc last shift. No acute indication for HD at this time * Monitor BMP, UO (2) Hypernatremia: * Free water deficit is 3.2 L * Agree w/ starting D5W at 125 cc/hr (3) Small bowel perforation: * s/p proximal jejunal resection w/ primary side to side anastomosis 11/29/24 (4) Septic shock: * Levophed to maintain MAP 65-70 (5) Anemia: * Consider transfusion to maintain Hgb > 8.0 History of Present Illness Reason for Consultation: ISA Attending Physician: Callie Pandya MD History of Present Illness Mr. Castellano is a 64 year old white male who is seen at the request of [facility] ICU staff for evaluation of ISA. Patient is currently sedated, mechanically ventilated and unable to provide any medical history. History is obtained from discussion w/ ICU staff and review of the medical record. Mr. Castellano has a known h/o alcohol use disorder, COPD and SVT. He has not maintained regular outpatient follow up w/ a PCP. He called EMS 11/27/24 due to weakness and abdominal pain. He was found to be disheveled and infested w/ bed bugs. EMD evaluation revealed SBP 70's, Hgb 5.8 and guaiac + stool, Cr 0.93. He was transfused 2 units PRBC. 11/29/24 chest, abdomen & pelvis CT without IV contrast revealed ascites and pneumoperitoneum. No hydronephrosis/stone or renal mass. Exploratory laparotomy 11/29/24 revealed perforated jejunum. Patient underwent proximal jejunal resection w/ primary side to side anastomosis. Post-op Mr. Castellano has been admitted to the ICU. He remains on levophed for pressor support. Broad spectrum antibiotics have been started for treatment of peritonitis and probable aspiration pneumonia. Allergies Allergy/AdvReac Type Severity Reaction Status Date / Time No Known Drug Allergies Allergy Unknown Verified 07/19/24 18:46 Patient History Medical History COPD (chronic obstructive pulmonary disease) Macrocytic anemia Coagulopathy Anemia Alcohol dependence Social History Smoking Status: Current every day smoker Tobacco Type: Cigarettes Cigarettes Per Day: 20; Do You Dip or Chew Tobacco: No; Hx Alcohol Use: Yes Alcohol type: beer Hx Substance Use: No Preferred Language: Korean Communication Ability: Effective Private Branch Exchange Operator Required: No Beliefs That Will Affect Care: None Current Living Situation: Other Current Living Situation Comment: with a friend/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 Collection bag w/ 200 cc yellow urine Results & Data Vital Signs (Past 12 Hours) Vital Signs Pulse Resp BP Pulse Ox FiO2 11/30/24 10:38 86 24 97 35 11/30/24 08:00 35 11/30/24 08:00 140 H 11/30/24 07:10 130 H 24 96 35 11/30/24 06:15 134 H 24 97 11/30/24 06:15 110/58 L 11/30/24 06:15 110/58 L 11/30/24 06:15 110/58 L 11/30/24 06:09 130 H 24 98 11/30/24 05:30 108/58 L 11/30/24 05:21 137 H 24 95 11/30/24 05:03 137 H 24 94 11/30/24 05:00 104/56 L 11/30/24 05:00 104/56 L 11/30/24 04:54 135 H 24 95 11/30/24 04:45 137 H 24 95 11/30/24 04:45 99/54 L 11/30/24 04:45 99/54 L 11/30/24 04:36 84/49 L 11/30/24 04:36 139 H 24 95 11/30/24 04:35 75/47 L 11/30/24 04:05 89 22 96 45 11/30/24 04:00 60 11/30/24 03:54 83 22 97 11/30/24 03:45 96/53 L 11/30/24 03:45 96/53 L 11/30/24 03:45 88 22 94 11/30/24 03:15 94/55 L 11/30/24 03:15 94/55 L 11/30/24 03:00 86 22 95 11/30/24 03:00 89/51 L 11/30/24 03:00 89/51 L 11/30/24 02:45 87 22 94 11/30/24 02:45 92/55 L 11/30/24 02:45 92/55 L 11/30/24 02:45 92/55 L 11/30/24 02:30 85 22 93 11/30/24 02:30 95/52 L 11/30/24 02:15 131 H 22 97 11/30/24 02:15 99/55 L 11/30/24 02:15 99/55 L 11/30/24 02:15 99/55 L 11/30/24 02:09 132 H 22 98 11/30/24 02:00 100/57 L 11/30/24 01:45 102/58 L 11/30/24 01:39 131 H 22 98 11/30/24 01:30 106/59 L 11/30/24 01:30 106/59 L 11/30/24 01:18 132 H 22 96 11/30/24 01:15 130 H 22 96 11/30/24 01:15 107/57 L 11/30/24 01:15 107/57 L 11/30/24 01:15 107/57 L 11/30/24 01:00 133 H 22 97 11/30/24 01:00 101/57 L 11/30/24 01:00 101/57 L 11/30/24 00:00 60 11/29/24 23:38 73 22 100 60 Laboratory Results Laboratory Results WBC 18.39 K/ul (4.8-10.8) H 11/30/24 03:53 RBC 3.53 M/uL (4.70-6.10) L 11/30/24 03:53 Hgb 7.7 g/dl (14.0-18.0) L 11/30/24 03:53 POC Hgb 8.5 g/dl (14.0-18.0) L 11/30/24 04:26 Hct 26.5 % (42.0-52.0) L 11/30/24 03:53 POC Hct 25 % (42-52) L 11/30/24 04:26 MCV 75.1 fL (80.0-100.0) L 11/30/24 03:53 MCH 21.8 pg (25.0-34.0) L 11/30/24 03:53 MCHC 29.1 g/dL (32.0-36.0) L 11/30/24 03:53 RDW Std Deviation 74.7 fL (36.4-46.3) H 11/29/24 20:24 RDW Coeff of Jourdan 28.8 % (11.5-14.5) H 11/29/24 20:24 Plt Count 118 K/uL (130-400) L 11/30/24 03:53 MPV 10.1 fL (9.4-12.4) 11/29/24 09:03 Immature Gran % (Auto) 0.7 % 11/30/24 03:53 Neut % (Auto) 87.8 % 11/30/24 03:53 Lymph % (Auto) 6.5 % 11/30/24 03:53 [place] % (Auto) 4.3 % 11/30/24 03:53 Eos % (Auto) 0.0 % 11/30/24 03:53 Baso % (Auto) 0.7 % 11/30/24 03:53 Neut # (Auto) 16.17 K/uL (1.40-6.50) H 11/30/24 03:53 Lymph # (Auto) 1.19 K/uL (1.20-3.40) L 11/30/24 03:53 [place] # (Auto) 0.79 K/uL (0.11-0.59) H 11/30/24 03:53 Eos # (Auto) 0.00 K/uL (0.00-0.50) 11/30/24 03:53 Baso # (Auto) 0.12 K/uL (0.00-0.20) 11/30/24 03:53 Immature Gran # (Auto) 0.12 K/uL (0.01-0.20) 11/30/24 03:53 Absolute Nucleated RBC 0.31 K/uL (0.00-0.12) H 11/30/24 03:53 Nucleated RBC % (auto) 1.7 % 11/30/24 03:53 Neutrophils % (Manual) 75 % 11/28/24 05:47 Lymphocytes % (Manual) 13 % 11/28/24 05:47 Monocytes % (Manual) 3 % 11/28/24 05:47 Basophils % (Manual) 1 % 11/28/24 05:47 Metamyelocytes % (Man) 7 % 11/28/24 05:47 Myelocytes % (Man) 1 % 11/28/24 05:47 Neutrophils # (Manual) 4.64 K/uL (1.40-6.50) 11/28/24 05:47 Total Absolute Neuts 4.64 K/uL (1.4-6.5) 11/28/24 05:47 Lymphocytes # (Manual) 0.80 K/uL (1.2-3.4) L 11/28/24 05:47 Total Abs Lymphocytes 0.80 K/uL (1.2-3.4) L 11/28/24 05:47 Monocytes # (Manual) 0.19 K/uL (0.11-0.59) 11/28/24 05:47 Basophils # (Manual) 0.06 K/uL (0-0.2) 11/28/24 05:47 Metamyelocytes # (Man) 0.43 K/uL (0-0) H 11/28/24 05:47 Myelocytes # (Manual) 0.06 K/uL (0-0) H 11/28/24 05:47 Toxic Vacuolation 1+ 11/28/24 05:47 Polychromasia 2+ 11/30/24 03:53 Hypochromasia Present 11/30/24 03:53 Poikilocytosis Present 11/30/24 03:53 Anisocytosis Present 11/30/24 03:53 Microcytosis Present 11/28/24 05:47 Tear Drop Cells 1+ 11/28/24 05:47 Ovalocytes 1+ 11/28/24 05:47 PT 18.3 Seconds (9.0-12.0) H 11/30/24 03:53 INR 1.8 (0.9-1.1) H 11/30/24 03:53 APTT 21 Seconds (21-31) 11/27/24 14:33 PTT Ratio 0.8 11/27/24 14:33 Specimen Type Arterial 11/30/24 04:26 Sample Site L Radial 11/30/24 04:26 POC pH 7.31 (7.35-7.45) L 11/30/24 04:26 POC pCO2 41 mmHg (35-46) 11/30/24 04:26 POC pO2 110 mmHg (80-95) H 11/30/24 04:26 POC HCO3 21 deidra/L (19-24) 11/30/24 04:26 POC Total CO2 22 mmol/L (24-31) L 11/30/24 04:26 POC Base Excess -5.0 deidra/L (-9-1.8) 11/30/24 04:26 O2 Sat Pulse Oximetry 99 11/30/24 04:26 ABG pH (Temp Correct) 7.311 (7.35-7.45) L 11/30/24 04:26 ABG pCO2 (Temp Corrct 41 mmHg (35-46) 11/30/24 04:26 POC ABG pO2 at Pt Temp 109 11/30/24 04:26 POC ABG O2 Sat 98.0 % (90-95) H 11/30/24 04:26 Rocael Test Pass 11/30/24 04:26 O2 Delivery Device Ventilator 11/30/24 04:26 Vent Mode AC 11/30/24 04:26 POC FiO2 45 % 11/30/24 04:26 End Tidal CO2 27 11/30/24 04:26 POC Sodium 150 mmol/L (135-144) H 11/30/24 04:26 Sodium 150 mmol/L (136-145) H 11/30/24 03:53 POC Potassium 4.0 mmol/L (3.3-5.0) 11/30/24 04:26 Potassium 4.1 mmol/L (3.5-5.1) 11/30/24 03:53 POC Chloride 112 mmol/L (101-112) 11/27/24 14:36 Chloride 118 mmol/L (98-107) H 11/30/24 03:53 Carbon Dioxide 22 mmol/L (21-32) 11/30/24 03:53 POC Total CO2 21 mmol/L (24-31) L 11/27/24 14:36 Anion Gap 10 (3-11) 11/30/24 03:53 POC Anion Gap 20.0 mmol/L (16-25) 11/27/24 14:36 POC BUN 30 mg/dl (7-18) H 11/27/24 14:36 BUN 59 mg/dl (6-23) H 11/30/24 03:53 Creatinine 2.33 mg/dl (0.6-1.4) H 11/30/24 03:53 POC Creatinine 1.0 mg/dl (0.6-1.3) 11/27/24 14:36 Est Cr Clr Drug Dosing 30.7 ml/min 11/30/24 03:53 eGFR 30.84 11/30/24 03:53 BUN/Creatinine Ratio 25.3 (10-20) H 11/30/24 03:53 Glucose 96 mg/dl (70-99(Fasting)) 11/30/24 03:53 POC Glucose (other) 119 mg/dl (70-99) H 11/27/24 14:36 Lactate 1.3 mmol/L (0.4-2.0) 11/29/24 18:14 Calcium 8.0 mg/dl (8.6-10.3) L 11/30/24 03:53 POC Ioniz Calcium Dorie 1.17 mmol/l (1.12-1.32) 11/27/24 14:36 Phosphorus 5.8 mg/dl (2.5-4.9) H 11/30/24 03:53 Magnesium 2.3 mg/dl (1.7-2.4) 11/30/24 03:53 Iron < 10 mcg/dl (35-175) L 11/27/24 14:33 TIBC 477 mcg/dl (250-450) H 11/27/24 14:33 Transferrin 341 mg/dl (200-360) 11/27/24 14:33 Transferrin % Sat TNP 11/27/24 14:33 Total Bilirubin 2.6 mg/dl (0.2-1.0) H 11/29/24 17:48 Direct Bilirubin 1.6 mg/dl (0-0.2) H 11/29/24 03:36 Direct Bilirubin Cancelled 11/29/24 03:36 AST 25 U/L (13-39) 11/29/24 17:48 ALT 22 U/L (7-52) 11/29/24 17:48 Alkaline Phosphatase 32 U/L (34-104) L 11/29/24 17:48 Ammonia 35.0 umol/L (18-72) 11/29/24 18:14 Troponin I High Sens 20.5 pg/ml (0-20) H 11/27/24 16:17 Total Protein 4.7 gm/dl (6.0-8.3) L D 11/29/24 17:48 Albumin 3.4 gm/dl (3.4-5.0) 11/29/24 17:48 Globulin 1.3 gm/dl (2.5-4.0) L 11/29/24 17:48 Albumin/Globulin Ratio 2.6 (0.9-2) H 11/29/24 17:48 Lipase 34 U/L (11-82) 11/27/24 14:33 Vitamin B12 880 pg/ml (180-914) 11/28/24 05:47 Folate 6.95 ng/ml (>5.38) 11/28/24 05:47 Random Cortisol > 60.00 mcg/dl 11/28/24 20:29 Urine Color [place] 11/29/24 15:01 Urine Appearance Cloudy (Clear) A 11/29/24 15:01 Urine pH 5.5 (4.5-7.5) 11/29/24 15:01 Ur Specific [place] 1.004 (1.000-1.030) 11/29/24 15:01 Urine Protein 1+ (Negative) H 11/29/24 15:01 Urine Glucose (UA) Negative (Negative) 11/29/24 15:01 Urine Ketones Negative (Negative) 11/29/24 15:01 Urine Blood 3+ (Negative) H 11/29/24 15:01 Urine Nitrite Negative (Negative) 11/29/24 15:01 Urine Bilirubin Negative (Negative) 11/29/24 15:01 Urine Urobilinogen Negative (Negative) 11/29/24 15:01 Ur Leukocyte Esterase 1+ (Negative) H 11/29/24 15:01 Urine WBC (Auto) 11-20 /hpf (0-5) H 11/29/24 15:01 Urine RBC (Auto) 6-10 /hpf (0-2) H 11/29/24 15:01 U Hyaline Cast (Auto) 3-5 /lpf (0-2) H 11/29/24 15:01 U Epithel Cells (Auto) 6-10 /hpf (0-2) H 11/29/24 15:01 Urine Bacteria (Auto) None Seen (None Seen) 11/29/24 15:01 Urine Osmolality 83 mOsm/kg (500-800) L 11/29/24 15:01 Ur Random Creatinine 3.9 mg/dl 11/29/24 15:01 Ur Random Sodium 36 mmol/L 11/29/24 15:01 Ur Random Potassium < 2.0 mmol/L 11/29/24 15:01 Ur Random Chloride 36 mmol/L 11/29/24 15:01 Fluid Neutrophils % 98 % 11/28/24 Unknown Fluid Lymphocytes % 1 % 11/28/24 Unknown Fluid [place] % 1 % 11/28/24 Unknown Fluid Comment 11/28/24 Unknown Peritoneal Color Yellow 11/28/24 Unknown Peritoneal Appearance Turbid 11/28/24 Unknown Peritoneal WBC (Auto) 75137 /ul (0-300) H 11/28/24 Unknown Peritoneal RBC (Auto) 2000 /uL 11/28/24 Unknown Peritoneal Tot Protein < 3.0 gm/dl 11/28/24 Unknown Peritoneal Albumin < 1.5 gm/dl 11/28/24 Unknown Peritoneal LDH 501 U/L 11/28/24 Unknown Nasal Screen MRSA (PCR) Uninterpretable (Negative) 11/29/24 Unknown Ethyl Alcohol mg/dL < 10.0 mg/dl (<10.0) 11/27/24 14:33 Adenovirus (PCR) Not Detected (NotDetected) 11/28/24 Unknown B. pertussis DNA (PCR) Not Detected (NotDetected) 11/28/24 Unknown B.parapertussis DNA PCR Not Detected (NotDetected) 11/28/24 Unknown C. pneumoniae DNA (PCR) Not Detected (NotDetected) 11/28/24 Unknown Coronavirus OC43 (PCR) Not Detected (NotDetected) 11/28/24 Unknown Coronavirus HKU1 (PCR) Not Detected (NotDetected) 11/28/24 Unknown Coronavirus 229E (PCR) Not Detected (NotDetected) 11/28/24 Unknown SARS-CoV-2 (PCR) Not Detected (NotDetected) 11/28/24 Unknown Coronavirus NL63 (PCR) Not Detected (NotDetected) 11/28/24 Unknown Human Metapneumovir PCR Not Detected (NotDetected) 11/28/24 Unknown Influenza Type A (PCR) Not Detected (NotDetected) 11/28/24 Unknown Influenza Type B (PCR) Not Detected (NotDetected) 11/28/24 Unknown M. pneumoniae (PCR) Not Detected (NotDetected) 11/28/24 Unknown Parainfluenza 1 (PCR) Not Detected (NotDetected) 11/28/24 Unknown Parainfluenza 2 (PCR) Not Detected (NotDetected) 11/28/24 Unknown Parainfluenza 3 (PCR) Not Detected (NotDetected) 11/28/24 Unknown Parainfluenza 4 (PCR) Not Detected (NotDetected) 11/28/24 Unknown RSV (PCR) Not Detected (NotDetected) 11/28/24 Unknown Entero/Rhino (PCR) Not Detected (NotDetected) 11/28/24 Unknown Blood Type O Positive 11/27/24 14:38 Antibody Screen NEGATIVE 11/27/24 14:38 Crossmatch See Detail 11/27/24 14:38 Impressions Chest CTA 11/27/24 14:09 EXAM: CT Angiography Chest With Intravenous Contrast INDICATION: Upper abdominal pain and diarrhea. TECHNIQUE: Axial computed tomographic angiography images of the chest with intravenous contrast. Sagittal and coronal reformatted images were created and reviewed. This CT exam was performed using one or more of the following dose reduction techniques: automated exposure control, adjustment of the mA and/or kV according to patient size, and/or use of iterative reconstruction technique. MIP reconstructed images were created and reviewed. CONTRAST: 117 ml of Optiray 320 was administered intravenously. COMPARISON: 07/18/2024 FINDINGS: Pulmonary arteries: No abnormality noted. No pulmonary embolism. Aorta: No acute change noted. No thoracic aortic aneurysm or dissection. Superior mesenteric artery: There is predominantly soft plaque at the origin of the superior mesenteric artery with roughly 75% stenosis. Lungs and pleural spaces: There is a small to moderate layering right pleural effusion. Centrilobular emphysematous changes stable. Airway thickening and atelectasis noted in the right middle and lower lobes. No bronchiectasis or honeycombing. No pneumothorax. No mass. Heart: Cardiomegaly. Small pericardial effusion. No evidence of right heart strain. Bones/joints: No acute or atypical chronic changes. Soft tissues: No abnormality noted. Lymph nodes: No abnormality noted. No enlarged lymph nodes. Intraperitoneal space: Small amounts of free fluid noted in the upper abdomen. IMPRESSION: 1. No pulmonary embolus or aortic dissection. 2. Bronchitis and atelectasis in the right middle and lower lobes. 3. Small to moderate right pleural effusion. 4. Mild ascites. 5. 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 ACT 112: Negative or not required by law. Electronically signed by Quiana Isidro 11-27-2024 3:35 PM Paracentesis Ultrasound 11/28/24 07:00 ULTRASOUND-GUIDED PARACENTESIS CLINICAL HISTORY: Ascites PROCEDURE: Procedure and risks were explained. Informed consent was obtained. A final timeout was completed. The abdomen was prepped and draped in sterile fashion. 1% lidocaine was utilized for skin anesthesia. Utilizing ultrasound guidance, a 5 [place] safety centesis catheter was advanced into the left lower quadrant pocket of ascites. Ultrasound images were obtained. 2.8 L of ascites fluid was removed with 1 L sent to lab for analysis. The catheter was removed and Band-Aid applied. The patient tolerated the procedure well. Vital signs will be monitored postprocedure. IMPRESSION: Ultrasound-guided paracentesis as above. Performed, dictated, and signed by Henrik Arellano PA-C; to be co-signed by Dr. German Perkins. Electronically signed by: German Perkins M.D. 11/29/2024 7:42 AM Abdomen/Pelvis CT 11/29/24 12:05 CT abd pelvis wo con CLINICAL HISTORY: r/o retroperitoneal bleed, increased TTP TECHNIQUE: Helical axial images of the abdomen and pelvis were obtained. Automated dose lowering techniques and/or adjustment according to patient size were utilized for this exam. This exam was performed without intravenous contrast. CT DOSE: 814.09 mGy.cm COMPARISON: Comparison is made to CT abdomen pelvis 11/27/2024 FINDINGS: Lower chest: For findings above the diaphragm, please see CT chest performed same day. Liver: Unremarkable. No focal lesions are seen. Gallbladder and biliary tree: Cholelithiasis is seen without evidence of cholecystitis. No intra- or extrahepatic biliary ductal dilation. Pancreas: Unremarkable, no focal lesions. Spleen: Unremarkable. Adrenals: Unremarkable. Kidneys and ureters: Left renal cyst is seen. Bladder: Sheth catheter is seen. Reproductive organs: Unremarkable. Bowel: Diverticulosis is seen without evidence of diverticulitis. There is a small hiatal hernia. Diffuse small bowel wall thickening may be reactive however enteritis cannot be excluded. Lymph nodes Retroperitoneal: Unremarkable. Pelvic: Unremarkable. Mesenteric: Unremarkable. Peritoneum: There is prominent ascites and pneumoperitoneum, both of which have increased from the prior exam. Vessels: Atherosclerotic calcifications are seen. Abdominal wall: Unremarkable. Bones: Degenerative changes in the visualized spine. IMPRESSION: 1. Significant increase in ascites and pneumoperitoneum from the prior exam. This may represent an underlying bowel perforation. 2. Bilateral pleural effusions, the left is significantly enlarged from prior exam. ACT 112: Negative or not required by law. Electronically signed by: Corey Jiménez M.D. 11/29/2024 2:[address] 11/29/24 12:05 CT OF THE CHEST WITHOUT IV CONTRAST CLINICAL HISTORY: Rhonchi/rales. COMPARISON STUDY: Chest radiograph July 25, 2024. Chest CT November 27, 2024. TECHNIQUE: Axial images of the chest were obtained without IV contrast. Images were reviewed in the axial, sagittal, and coronal planes. IV contrast was not administered for this examination. Automated exposure control was utilized for the study. A dose lowering technique was utilized adhering to the principles of ALARA. FINDINGS: Moderate right and small left pleural effusions have increased in size since chest CT of November 27, 2024. Extensive right lower lobe airspace opacity with volume loss favors compressive atelectasis. There is also segmental atelectasis within the right upper and right lower lobes. There are secretions within the airways. There is no pneumothorax. Lungs are suboptimally assessed due to respiratory motion. Severe emphysema. The heart is moderately enlarged. There is no pericardial effusion. There is no thoracic lymphadenopathy. The abdomen and pelvis CT will be reported separately. Large volume pneumoperitoneum and upper abdominal ascites is present. There is body wall anasarca. IMPRESSION: 1. Large volume pneumoperitoneum consistent with a perforated hollow viscus. Findings better depicted on CT of the abdomen and pelvis which will be reported separately. Surgical consultation is recommended. Findings discussed with Dr. Almonte at time of dictation. 2. Ascites and anasarca. 3. Moderate right and small left pleural effusions which have increased in size since prior exam. Possible mild interstitial pulmonary edema. Extensive right lower lobe airspace opacities with volume loss favors compressive atelectasis. 4. Emphysema. 5. Cardiomegaly. ACT 112: Negative or not required by law. Electronically signed by: German Perkins M.D. 11/29/2024 1:56 PM Chest X-Ray 11/30/24 07:00 EXAM: XR chest 1V portable CLINICAL HISTORY: RESPIRATORY FAILURE. TECHNIQUE: An X-ray image of the chest was obtained in 1 view: AP projection. COMPARISON: X-ray dated 11/29/2024. FINDINGS: Rotated patient. Pulmonary Parenchyma: Redemonstration of inhomogeneous airspace opacification of right lung lower zone with obscuration of costophrenic angle, suggestion of small pleural effusion with subsegmental collapse/consolidation. Bilateral prominent bronchovascular markings (unchanged). Heart and Mediastinum: Cardiomegaly. No hilar lymphadenopathy Bony Thorax: Bony thorax appears intact without fractures or deformities. Soft Tissues: Soft tissues overlying the chest wall are unremarkable. Lines: ETT in situ with distal tip 5.8 cm above aurea (satisfactory). Right subclavian approach venous line in place with distal tip seen in superior vena cava (satisfactory). NG tube in place with the distal tip not seen, however below hemidiaphragm. IMPRESSION: 1. Redemonstration of inhomogeneous airspace opacification of right lung lower zone with obscuration of costophrenic angle, suggestion of small pleural effusion with subsegmental collapse/consolidation. 2. Cardiomegaly. 3. ETT in situ with distal tip 5.8 cm above aurea (satisfactory).. 4. Right subclavian approach venous line in place with distal tip seen in superior vena cava (satisfactory). 5. NG tube in place with the distal tip not seen, however below hemidiaphragm. Electronically signed by Fifi Mace 11-30-2024 07:45 AM PG Care Time/CCT Total # of Minutes Spent Total Time Spent with Patient: Total time spent is greater than 50% in coordination of care (as documented) at patient's floor/unit and/or counseling patient: Coding Level of Care Code 32594 IN/OBS CONSULT LVL 5,80M Diagnoses ISA (acute kidney injury) N17.9 Hypernatremia E87.0 Small bowel perforation K63.1 Septic shock A41.9; R65.21 Anemia D64.9 Anemia type: unspecified type (5) Anemia Anemia type: unspecified type Qualified Code(s): D64.9 - Anemia, unspecified
--- NOTE | 2024-11-30 11:49 | Hospitalist Progress Note ---
Date of Service November 30, 2024 Assessment & Plan (1) Anemia: (2) GIB (gastrointestinal bleeding): (3) Alcohol abuse: (4) Abdominal ascites: (5) History of Clostridioides difficile infection: (6) Pneumoperitoneum: (7) Septic shock: (8) Small bowel perforation: (9) ISA (acute kidney injury): Plan Septic Shock/Pneumoperitoneum/Bowel Perforation - Pain not severe, no leukocytosis initially, now WBC: 18 - Hypotensive with tachycardia, BP steady but soft after 4th unit of PRBC and 1L NSS bolus; 99/61 - CT abdomen/pelvis showed moderate ascites, moderate body wall edema, potential gastritis vs chronic ascites - Repeat CT: pneumoperitoneum and ascites significantly increased - Large 2 cm perforation in proximal jejunum, resected small bowel and primary anastomosis; 3 liters of feculent ascites removed - NGT, Giancarlo drain, Intubated - Abx regimen modified to IV Zosyn for broad coverage - Random cortisol > 60 - Continue pressor support with Levophed - Follow blood, urine, and peritoneal cultures - CBC/CMP/ QAM BL pleural effusions - CT AP: pneumoperitoneum and ascites significantly increased - CT chest: Moderately sized L. and R. pleural effusions, increased in size - CXR 11/30: Right sided small pleural effusion - Plan for R. thoracocentesis today -Check echo Severe anemia/Hemoccult positive stool - Hemoglobin has been as low as 4.1 in 06/2024 admitted for blood and iron transfusions - GI consult placed - Hemoccult stool pending, no gross melena or hematochezia. - No obvious bleeding on CT AP, potential anemia from chronic bedbug bites versus GI malignancy or PUD/gastritis from alcohol use - 4 units PRBC given since admit, Hgb: 8.3 - Severe iron deficiency anemia, consider iron infusions after stabilizes and if no bacteremia - Folate/B12 wnl, Iron <10 - Consider EGD/colonoscopy once stable - CBC QAM, transfuse <7 ISA/ATN/Hypernatremia - Nephrology consulted: urine output 400 last shift, acute HD not necessary at this time - Na: 146 Free water deficit 1.7L - Continue D5W; received 2L - Monitor BMP, urine output DVT prophylaxis- SCDs only due to anemia Disposition- ICU Admission and Anticipated Discharge Date Admission Date: November 27, 2024 Supervising Physician Co-Signing Physician Notes I personally examined the patient and verified all vásquez points of history and exam, discussed case, and agree with decision making with Dr. Rizzo with the following additions/exceptions: S-patient remains intubated and sedated, on Levophed, no bowel movement, postop day #1 s/p exploratory laparotomy with proximal jejunal resection and anastomosis after bowel perforation Telemetry with sinus tachycardia in the 120s 130s and normal sinus rhythm in the 70s, occasional tachycardia in the 150s that may be atrial tachycardia O- Vitals Reviewed Gen: Sedated, mechanically ventilated, NAD HEENT: Anicteric sclerae CV: Regular rhythm, tachycardic, no mgr nl S1S2 Pulm: CTAB no wcr Abd: Hypoactive bowel sounds, laparotomy wound covered with dressing clean dry and intact, abdomen soft Ext: 1+ pitting edema all 4 extremities Skin: Multiple 2 to 3 mm macular erythematous excoriated lesions on extremities CBC, BMP, LFTs, UA, blood cultures reviewed A/P: This patient is a 64-year-old male with a history of alcohol use disorder, severe anemia, bedbug infestation, COPD, and SVT who does not follow regularly with a physician who presents with abdominal pain, ascites, and severe anemia. Developed into worsening abdominal pain and found to have perforated viscus. Here with septic shock and peritonitis. Status post exploratory laparotomy and remains intubated and on vasopressors in the ICU -Continue broad-spectrum antibiotics with changed to Zosyn today, continue vasopressors, IV albumin, follow peritoneal ascites cultures, blood cultures drawn, urine culture -Acute kidney injury but urine output is picking up-expect this will improve- this is secondary to ATN from sepsis. Giving D5W for hyper natremia --With ongoing severe anemia but improved from previous now s/p 4 units PRBCs- continue to follow CBC, transfuse as needed and eventually could give IV iron -EGD and colonoscopy when stabilized is recommended and needs nut packer for severe bedbug infestation in house Appreciate ICU management At the time of admission, the patient told me that he would want his sister, Marcy Buitrago to be his decision-maker if he could make decisions. We have searched for her name online and he told me she lives in [place]. We think we have located her as she is a fiscal agent-will attempt to call Subjective Patient was seen this morning after recent transfer to the ICU. Patient is intubated and sedated, thus unable to get complete history from patient. Patient was recently transferred after a jejunal bowel perforation was found and corrected s/p exploratory laparotomy and jejunal resection/anastomoses by surgery. Patient was initially admitted due to septic shock, severe anemia, and dehydration/poor oral intake. Patient will continue to receive critical care in the ICU. Physical Exam Physical Exam: General: patient resting comfortably, NAD, non-toxic in appearance, answers questions appropriately. Skin: warm, dry, intact HEENT: NC/AT, anicteric sclera, conjunctiva without injection, moist mucus membranes. Heart: +S1/S2, regular, no m/r/g Lungs: equal air entry bilaterally, no rales/rhonchi/wheezes Abd: +BS, distended Ext: warm, no clubbing/cyanosis or edema Neuro: nonfocal, speech intact, no facial droop, moving all extremities. Results & Data Results & Data Vital Signs (Past 12 Hours) Vital Signs Pulse Resp BP Pulse Ox FiO2 11/30/24 10:38 86 24 97 35 11/30/24 08:00 35 11/30/24 08:00 140 H 11/30/24 07:10 130 H 24 96 35 11/30/24 06:15 134 H 24 97 11/30/24 06:15 110/58 L 11/30/24 06:15 110/58 L 11/30/24 06:15 110/58 L 11/30/24 06:09 130 H 24 98 11/30/24 05:30 108/58 L 11/30/24 05:21 137 H 24 95 11/30/24 05:03 137 H 24 94 11/30/24 05:00 104/56 L 11/30/24 05:00 104/56 L 11/30/24 04:54 135 H 24 95 11/30/24 04:45 137 H 24 95 11/30/24 04:45 99/54 L 11/30/24 04:45 99/54 L 11/30/24 04:36 84/49 L 11/30/24 04:36 139 H 24 95 11/30/24 04:35 75/47 L 11/30/24 04:05 89 22 96 45 11/30/24 04:00 60 11/30/24 03:54 83 22 97 11/30/24 03:45 96/53 L 11/30/24 03:45 96/53 L 11/30/24 03:45 88 22 94 11/30/24 03:15 94/55 L 11/30/24 03:15 94/55 L 11/30/24 03:00 86 22 95 11/30/24 03:00 89/51 L 11/30/24 03:00 89/51 L 11/30/24 02:45 87 22 94 11/30/24 02:45 92/55 L 11/30/24 02:45 92/55 L 11/30/24 02:45 92/55 L 11/30/24 02:30 85 22 93 11/30/24 02:30 95/52 L 11/30/24 02:15 131 H 22 97 11/30/24 02:15 99/55 L 11/30/24 02:15 99/55 L 11/30/24 02:15 99/55 L 11/30/24 02:09 132 H 22 98 11/30/24 02:00 100/57 L 11/30/24 01:45 102/58 L 11/30/24 01:39 131 H 22 98 11/30/24 01:30 106/59 L 11/30/24 01:30 106/59 L 11/30/24 01:18 132 H 22 96 11/30/24 01:15 130 H 22 96 11/30/24 01:15 107/57 L 11/30/24 01:15 107/57 L 11/30/24 01:15 107/57 L 11/30/24 01:00 133 H 22 97 11/30/24 01:00 101/57 L 11/30/24 01:00 101/57 L 11/30/24 00:00 60 Resident Activity Tracking Resident Involvement: Resident Care Provided Care Provided: Adult Hospital Medicine (1) Anemia Anemia type: unspecified type Qualified Code(s): D64.9 - Anemia, unspecified (2) GIB (gastrointestinal bleeding) GI bleed type/associated pathology: unspecified gastrointestinal hemorrhage type Qualified Code(s): K92.2 - Gastrointestinal hemorrhage, unspecified (4) Abdominal ascites Ascites type: due to alcoholic cirrhosis Qualified Code(s): K70.31 - Alcoholic cirrhosis of liver with ascites
[2024-11-30] MEDS: fentaNYL BOLUS from BAG IV PRN (12:06)
[2024-11-30] MEDS: 4.5GM EXT INFUSION IV SCH (14:17)
[2024-11-30 14:44] LABS: Hematocrit (blood only) 24.7 % (42.0-52.0); Hemoglobin 7.4 g/dl (14.0-18.0)
[2024-11-30 14:50] LABS: BUN Creatinine Ratio 26.9 (10-20); Calcium 7.6 mg/dl (8.6-10.3); Creatinine Clr Calc Pharmacy 32.2 ml/min; Potassium 3.8 mmol/L (3.5-5.1)
[2024-11-30] MEDS ORDERED: GLUCOSE 10 TAB/TUBE PO PRN (18:01)
[2024-11-30] MEDS ORDERED: GLUCAGON FOR INJ 1 MG VIAL SQ PRN (18:01)
[2024-11-30] MEDS ORDERED: DEXTROSE 50% 50 ML SYRINGE IV PRN (18:01)
[2024-11-30] MEDS ORDERED: CARBOHYDRATES FOR HYPOGLYCEMIA PO PRN (18:01)
[2024-11-30] MEDS ORDERED: GLUCOSE 40% GEL 15 GM TUBE PO PRN (18:01)
--- NOTE | 2024-11-30 18:36 | Billing Data ---
Date of Service November 30, 2024 Coding Level of Care Code 40708 SUB INP/OBS CARE MIN
--- NOTE | 2024-11-30 18:40 | Procedure Note ---
Procedure Note Date of Service November 30, 2024 Procedure: Diagnostic therapeutic ultrasound-guided catheter thoracentesis Cancer Registry Manager: Dr. Man Bullard Indication: Right-sided pleural effusion Consent: Emergent consent was applied as patient is not able to consent and there is no family member Anesthesia: 1% lidocaine without epinephrine local. Procedure: Consent was verified and timeout performed. Appropriate imaging studies were reviewed prior to the procedure. Patient was placed in a seated position and limited thoracic ultrasound was performed of the right chest. See separate imaging. Appropriate site above the diaphragm for thoracentesis was selected. The skin was prepped and draped in no rmal sterile fashion. Lidocaine was used for local analgesia. Fluid was aspirated via the finder needle. A small skin eligio was made with the scalpel and the catheter over the needle apparatus was advanced over the rib into the pleural space. Using the syringe one-way valve system, a total of 1250 mL's of serous fluid was removed. The catheter was removed and observed to be intact. A sterile dressing was applied. Post procedure chest x-ray was ordered. Fluid was sent for labs, culture and cytology. Complications: None Blood loss: Less than 1 cc [facility] [place] Procedure Codes (Charges) Pulmonary/Thoracic Procedure 1: Pulmonary and Thoracic: 28972 Thoracentesis w imaging Coding CPT Codes Pulmonary/Thoracic - Pulmonary and Thoracic: 98891 Thoracentesis w imaging ([id number]) Additional Codes Date of Service ([facility].SURGERY)
[2024-11-30 19:49] LABS: Albumin Level 2.8 gm/dl (3.4-5.0); Bilirubin,Total 1.6 mg/dl (0.2-1.0); Total Protein 4.3 gm/dl (6.0-8.3)
[2024-11-30 19:52] LABS: Amylase Pleural Fluid 168 U/L; Glucose Pleural Fluid 167 mg/dl; LDH Pleural Fluid 132 U/L; Total Protein Pleural Fluid < 3.0 gm/dl
[2024-11-30 20:06] LABS: Appearance Pleural Fluid Clear; Basophils, Fluid 5 %; Color Pleural Fluid Yellow; Lymphocytes, Fluid 9 %; Mono,Macrophage,Mesothelial 42 %; Neutrophils, Fluid 44 %; RBC Pleural Fluid Auto < 2000 /uL; Source Pleural Fluid Right Lung; WBC Pleural Fluid Auto 73 /uL
[2024-11-30] MEDS: VASOPRESSIN 20 UNITS in SODIUM CHLORIDE 0.9% 100 ML IV SCH (20:09)
--- NOTE | 2024-11-30 21:43 | Electrocardiogram Report ---
Test Reason : Blood Pressure : */* mmHG Vent. Rate : 133 BPM Atrial Rate : 133 BPM P-R Int : 142 ms QRS Dur : 82 ms QT Int : 302 ms P-R-T Axes : -16 57 66 degrees QTcB Int : 449 ms Sinus tachycardia Nonspecific T wave abnormality Abnormal ECG When compared with ECG of 29-Nov-2024 04:28, T wave amplitude has decreased in Anterior leads Confirmed by Gregorio Landrum ([id number]) on 11/30/2024 9:43:26 PM Referred By: REFERRED SELF Confirmed By: Gregorio Landrum
--- NOTE | 2024-11-30 23:48 | XRay Report ---
Exam(s): XR CXR 1 VIEW EXAM: XR Chest, 1 View CLINICAL HISTORY: Reason for exam: S/P Thoracentesis. TECHNIQUE: Frontal view of the chest. COMPARISON: Chest x-ray November 30, 2024 at 6:40 AM FINDINGS: Lungs: Basilar atelectasis. Pleural space: Status post thoracentesis on the right. Decreased size of the pleural effusion. No radiographically evident pneumothorax. Heart: Unremarkable. No cardiomegaly. Tubes, lines and devices: Endotracheal tube terminates 6.9 cm above the aurea. Right IJ central line terminates within the SVC. Esophagogastric tube terminates within the stomach. IMPRESSION: Status post thoracentesis on the right. Decreased size of the pleural effusion. No radiographically evident pneumothorax. Electronically signed by: Donnie Romeo MD 11/30/24 23:47 PM
[2024-12-01] MEDS: INSULIN ASPART PER UNIT CHARGE SC SCH (01:11)
[2024-12-01] MEDS: LORazepam 2 MG/1 ML VIAL IV PRN (01:13)
[2024-12-01 03:34] LABS: iSTAT Allen Test Pass; iSTAT Art Bld Gas pCO2 Correct 31 mmHg (35-46); iSTAT Art Bld Gas pH Corrected 7.399 (7.35-7.45); iSTAT Arterial Blood Gas HCO3 19 meg/L (19-24); iSTAT Arterial Blood Gas pCO2 31 mmHg (35-46); iSTAT Arterial Blood Gas pO2 102 mmHg (80-95); iSTAT Arterial Blood Gas pO2 C 102; iSTAT Carbon Dioxide 20 mmol/L (24-31); iSTAT FiO2 30 %; iSTAT Hematocrit 22 % (42-52); iSTAT Hemoglobin 7.5 g/dl (14.0-18.0); iSTAT Potassium 3.3 mmol/L (3.3-5.0); iSTAT Sample Type Arterial; iSTAT Site L Radial; iSTAT Sodium 141 mmol/L (135-144); iSTAT SpO2 91
[2024-12-01 04:47] LABS: Hematocrit (blood only) 22.5 % (42.0-52.0); Hemoglobin 6.8 g/dl (14.0-18.0); Mean Corpuscular Hgb Conc 30.2 g/dL (32.0-36.0); Mean Corpuscular Volume 72.8 fL (80.0-100.0); Nucleated RBC # (auto) 0.25 K/uL (0.00-0.12); Nucleated RBC % (auto) 1.4 %; Platelet Count 60 K/uL (130-400); Red Blood Count 3.09 M/uL (4.70-6.10); White Blood Count 17.45 K/ul (4.8-10.8)
[2024-12-01] MEDS ORDERED: SODIUM CHLORIDE 0.9% 50 ML IV PRN (04:47)
[2024-12-01] MEDS ORDERED: SODIUM CHLORIDE 0.9% 100 ML IV PRN (04:47)
[2024-12-01 04:50] LABS: Basophils # (auto) 0.04 K/uL (0.00-0.20); Basophils % (auto) 0.2 %; Dohle Bodies 1+; Eosinophils # (auto) 0.05 K/uL (0.00-0.50); Eosinophils % (auto) 0.3 %; Hypochromasia Present; Immature Granulocytes # (auto) 0.16 K/uL (0.01-0.20); Immature Granulocytes % (auto) 0.9 %; Lymphocytes # (auto) 1.48 K/uL (1.20-3.40); Lymphocytes % (auto) 8.5 %; Monocytes # (auto) 1.22 K/uL (0.11-0.59); Neutrophils % (auto) 83.1 %; Target Cells 1+; Tear Drop Cells 1+
[2024-12-01 04:55] LABS: INR 1.8 (0.9-1.1); Prothrombin Time 18.1 Seconds (9.0-12.0)
[2024-12-01 04:58] LABS: BUN Creatinine Ratio 29.8 (10-20); Calcium 7.3 mg/dl (8.6-10.3); Creatinine Clr Calc Pharmacy 37.5 ml/min; Phosphorus 3.2 mg/dl (2.5-4.9); Potassium 3.5 mmol/L (3.5-5.1)
--- NOTE | 2024-12-01 08:18 | XRay Report ---
EXAM: XR chest 1V portable CLINICAL HISTORY: Follow up TECHNIQUE: An X-ray image of the chest is obtained in 1 AP projection. COMPARISON: 11/30/2024 CR. FINDINGS: Pulmonary Parenchyma: Near resolved the previously noted inhomogeneous airspace opacification of right lung lower zone with still noted obscuration of costophrenic angle, suggestion of small pleural effusion. Bilateral prominent bronchovascular markings (unchanged). Heart and Mediastinum: Cardiomegaly. No hilar lymphadenopathy Bony Thorax: Bony thorax appears intact without fractures or deformities. Soft Tissues: Soft tissues overlying the chest wall are unremarkable. Lines: ETT in situ with distal tip 6.1 cm above aurea (satisfactory). Right subclavian approach venous line in place with distal tip seen in superior vena cava (satisfactory). NG tube in place with the distal tip not seen, however below hemidiaphragm. IMPRESSION: 1. Near resolved the previously noted inhomogeneous airspace opacification of right lung lower zone with still noted obscuration of right costophrenic angle, suggestion of small right pleural effusion. 2. Cardiomegaly. 3. ETT in situ with distal tip 6.1 cm above aurea (satisfactory). 4. Right subclavian approach venous line in place with distal tip seen in superior vena cava (satisfactory). 5. NG tube in place with the distal tip not seen, however below hemidiaphragm. 6. No other time interval changes. Electronically signed by Fifi Mace 12-01-2024 08:18 AM
--- NOTE | 2024-12-01 08:27 | Nephrology Progress Note ---
Date of Service December 01, 2024 Assessment & Plan (1) ISA (acute kidney injury): Plan: * ISA, likely ATN due to septic shock * Volume status and electrolyte balance are acceptable (SaO2 99% on FiO2 30%). Patient is nonoliguric. UO was 1455 yesterday. No acute indication for HD at this time * Monitor BMP, UO (2) Hypernatremia: Plan: * Corrected. D5W stopped. Monitor BMP. Will likely have 1 L insensible losses/day (3) Small bowel perforation: Plan: * s/p proximal jejunal resection w/ primary side to side anastomosis 11/29/24 (4) Septic shock: Plan: * Levophed to maintain MAP 65-70 (5) Anemia: Plan: * Recommend transfusion to maintain Hgb > 8.0 Admission and Anticipated Discharge Date Admission Date: November 27, 2024 Subjective Sedated, mechanically ventillated Review of Systems Review of Systems: Unobtainable due to endotracheal tube Physical Exam Constitutional: + ill appearing Eyes: PERRL, conjunctivae normal, anicteric sclerae Neck: trachea midline, no thyromegaly Cardiovascular: RRR, no murmur, no edema Gastrointestinal (Abdomen): Inspection/Auscultation: + hypoactive bowel sounds (ESTRELLITA drain in place) Results & Data Vital Signs (Past 12 Hours) Vital Signs Temp Pulse Resp BP BP Pulse Ox FiO2 12/01/24 08:00 30 12/01/24 08:00 125 H 106/61 12/01/24 08:00 88 12/01/24 07:28 92/44 L 12/01/24 07:23 92/43 L 12/01/24 06:51 94/48 L 12/01/24 06:22 36.7 C 125 H 20 106/61 97 12/01/24 04:00 114/72 12/01/24 04:00 35 12/01/24 04:00 92/44 L 12/01/24 03:48 123 H 20 90 12/01/24 03:45 86 24 92 30 12/01/24 03:30 95/58 L 12/01/24 03:18 87 24 90 12/01/24 02:30 92/62 L 12/01/24 02:24 83 24 93 12/01/24 02:00 83 24 92 12/01/24 02:00 105/12/01/24 02:00 105/62 12/01/24 02:00 105/62 12/01/24 02:00 10512/01/24 01:00 10612/01/24 01:00 106/62 12/01/24 01:00 10612/01/24 01:00 106/62 12/01/24 01:00 83 24 96 12/01/24 00:33 82 24 96 12/01/24 00:30 113/65 12/01/24 00:30 113/65 12/01/24 00:30 113/65 12/01/24 00:00 109/65 12/01/24 00:00 35 12/01/24 00:00 115/51 L 11/30/24 23:45 84 24 96 11/30/24 23:30 115/64 11/30/24 23:30 115/64 11/30/24 23:30 115/64 11/30/24 23:27 85 24 97 11/30/24 23:15 85 24 99 30 11/30/24 23:03 86 24 97 11/30/24 23:00 121/69 11/30/24 23:00 121/69 11/30/24 22:42 86 24 97 11/30/24 22:30 106/64 11/30/24 22:30 106/64 11/30/24 22:30 106/64 11/30/24 22:18 87 24 98 11/30/24 22:00 87 24 96 11/30/24 22:00 117/66 11/30/24 21:37 95/51 L 11/30/24 21:37 95/51 L 11/30/24 21:35 92/52 L 11/30/24 21:27 135 H 24 95 11/30/24 21:25 91/67 L 11/30/24 21:24 142 H 24 95 11/30/24 21:22 111/55 L 11/30/24 21:20 103/64 11/30/24 21:15 89 24 100 11/30/24 21:15 101/57 L 11/30/24 21:15 101/57 L 11/30/24 21:10 109/56 L 11/30/24 21:10 109/56 L 11/30/24 21:07 99/58 L Laboratory Results Laboratory Results - last 24 hr 11/27/24 11/30/24 11/30/24 14:38 12:20 14:15 WBC RBC Hgb 7.4 L POC Hgb Hct 24.7 L POC Hct MCV MCH MCHC Plt Count Immature Gran % (Auto) Neut % (Auto) Lymph % (Auto) [place] % (Auto) Eos % (Auto) Baso % (Auto) Neut # (Auto) Lymph # (Auto) [place] # (Auto) Eos # (Auto) Baso # (Auto) Immature Gran # (Auto) Absolute Nucleated RBC Nucleated RBC % (auto) Dohle Bodies Hypochromasia Target Cells Tear Drop Cells PT INR Specimen Type Sample Site POC pH POC pCO2 POC pO2 POC HCO3 POC Total CO2 POC Base Excess O2 Sat Pulse Oximetry ABG pH (Temp Correct) ABG pCO2 (Temp Corrct POC ABG pO2 at Pt Temp POC ABG O2 Sat Rocael Test O2 Delivery Device Vent Mode POC FiO2 End Tidal CO2 POC Sodium Sodium 146 H POC Potassium Potassium 3.8 Chloride 116 H Carbon Dioxide 23 Anion Gap 7 BUN 59 H Creatinine 2.19 H Est Cr Clr Drug Dosing 32.2 eGFR 33.22 BUN/Creatinine Ratio 26.9 H Glucose 173 H POC Glucose (other) 140 H Calcium 7.6 L Phosphorus Magnesium Total Bilirubin Lactate Dehydrogenase Total Protein Albumin Fluid Neutrophils % Fluid Lymphocytes % Fluid Basophils % Fluid Meso/Macro/[place] % Fluid Comment Pleural Fluid Source Pleural Color Pleural Appearance Pleural pH Pleural WBC (Auto) Pleural RBC (Auto) Pleural Total Protein Pleural LDH Pleural Glucose Pleural Amylase Blood Type O Positive Antibody Screen NEGATIVE Crossmatch See Detail 11/30/24 11/30/24 11/30/24 17:29 18:20 19:01 WBC RBC Hgb POC Hgb Hct POC Hct MCV MCH MCHC Plt Count Immature Gran % (Auto) Neut % (Auto) Lymph % (Auto) [place] % (Auto) Eos % (Auto) Baso % (Auto) Neut # (Auto) Lymph # (Auto) [place] # (Auto) Eos # (Auto) Baso # (Auto) Immature Gran # (Auto) Absolute Nucleated RBC Nucleated RBC % (auto) Dohle Bodies Hypochromasia Target Cells Tear Drop Cells PT INR Specimen Type Sample Site POC pH POC pCO2 POC pO2 POC HCO3 POC Total CO2 POC Base Excess O2 Sat Pulse Oximetry ABG pH (Temp Correct) ABG pCO2 (Temp Corrct POC ABG pO2 at Pt Temp POC ABG O2 Sat Rocael Test O2 Delivery Device Vent Mode POC FiO2 End Tidal CO2 POC Sodium Sodium POC Potassium Potassium Chloride Carbon Dioxide Anion Gap BUN Creatinine Est Cr Clr Drug Dosing eGFR BUN/Creatinine Ratio Glucose POC Glucose (other) 184 H Calcium Phosphorus Magnesium Total Bilirubin 1.6 H Lactate Dehydrogenase 156 Total Protein 4.3 L Albumin 2.8 L Fluid Neutrophils % 44 Fluid Lymphocytes % 9 Fluid Basophils % 5 Fluid Meso/Macro/[place] % 42 Fluid Comment Pleural Fluid Source Right Lung Pleural Color Yellow Pleural Appearance Clear Pleural pH 7.41 H Pleural WBC (Auto) 73 Pleural RBC (Auto) < 2000 Pleural Total Protein < 3.0 Pleural LDH 132 Pleural Glucose 167 Pleural Amylase 168 Blood Type Antibody Screen Crossmatch 12/01/24 12/01/24 12/01/24 00:53 03:21 04:05 WBC 17.45 H RBC 3.09 L Hgb 6.8 L* POC Hgb 7.5 L Hct 22.5 L POC Hct 22 L MCV 72.8 L MCH 22.0 L MCHC 30.2 L Plt Count 60 L Immature Gran % (Auto) 0.9 Neut % (Auto) 83.1 Lymph % (Auto) 8.5 [place] % (Auto) 7.0 Eos % (Auto) 0.3 Baso % (Auto) 0.2 Neut # (Auto) 14.50 H Lymph # (Auto) 1.48 [place] # (Auto) 1.22 H Eos # (Auto) 0.05 Baso # (Auto) 0.04 Immature Gran # (Auto) 0.16 Absolute Nucleated RBC 0.25 H Nucleated RBC % (auto) 1.4 Dohle Bodies 1+ Hypochromasia Present Target Cells 1+ Tear Drop Cells 1+ PT 18.1 H INR 1.8 H Specimen Type Arterial Sample Site L Radial POC pH 7.40 POC pCO2 31 L POC pO2 102 H POC HCO3 19 POC Total CO2 20 L POC Base Excess -6.0 O2 Sat Pulse Oximetry 91 ABG pH (Temp Correct) 7.399 ABG pCO2 (Temp Corrct 31 L POC ABG pO2 at Pt Temp 102 POC ABG O2 Sat 98.0 H Rocael Test Pass O2 Delivery Device Ventilator Vent Mode AC POC FiO2 30 End Tidal CO2 24 POC Sodium 141 Sodium 140 POC Potassium 3.3 Potassium 3.5 Chloride 110 H Carbon Dioxide 22 Anion Gap 8 BUN 56 H Creatinine 1.88 H D Est Cr Clr Drug Dosing 37.5 eGFR 39.90 BUN/Creatinine Ratio 29.8 H Glucose 207 H POC Glucose (other) 232 H Calcium 7.3 L Phosphorus 3.2 D Magnesium 2.0 Total Bilirubin Lactate Dehydrogenase Total Protein Albumin Fluid Neutrophils % Fluid Lymphocytes % Fluid Basophils % Fluid Meso/Macro/[place] % Fluid Comment Pleural Fluid Source Pleural Color Pleural Appearance Pleural pH Pleural WBC (Auto) Pleural RBC (Auto) Pleural Total Protein Pleural LDH Pleural Glucose Pleural Amylase Blood Type O Positive Antibody Screen NEGATIVE Crossmatch See Detail PG Care Time/CCT Total # of Minutes Spent Total Time Spent with Patient: Total time spent is greater than 50% in coordination of care (as documented) at patient's floor/unit and/or counseling patient: Coding Level of Care Code 48213 SUB INP/OBS CARE 3/50MIN Diagnoses ISA (acute kidney injury) N17.9 Hypernatremia E87.0 Small bowel perforation K63.1 Septic shock A41.9; R65.21 Anemia D64.9 Anemia type: unspecified type (5) Anemia Anemia type: unspecified type Qualified Code(s): D64.9 - Anemia, unspecified
--- NOTE | 2024-12-01 08:28 | Critical Care Progress Note ---
Date of Service December 01, 2024 Assessment & Plan (1) Pneumoperitoneum: (2) History of Clostridioides difficile infection: (3) Abdominal ascites: (4) Pleural effusion: (5) GIB (gastrointestinal bleeding): (6) PSVT (paroxysmal supraventricular tachycardia): (7) Aspiration into lower respiratory tract: (8) Bed bug bite: (9) Alcohol abuse: (10) Transaminitis: (11) ISA (acute kidney injury): (12) COPD (chronic obstructive pulmonary disease): (13) High anion gap metabolic acidosis: (14) CHF (congestive heart failure): Plan Reason Critically Ill: 64-year-old male was admitted to the hospital for GI bleed. Patient was found to have pneumoperitoneum as well as ISA and was transferred to ICU for further management Past medical history: Alcohol abuse, COPD, ascites Neuro - [facility] ICU: Unable to assess Sedation with fentanyl Given the history of liver problems avoid benzodiazepines Cardiac - -- Shock Likely combination of sepsis as well as anesthesia Continue vasopressor support to keep MAP greater than 65 Random cortisol 21, 12/01/2024 -- New onset CHF Will get cardiology involved Ascites could have been because of new onset CHF 2D echo 12/01/2024: EF 25-30%, moderate to severe global hypokinesis Respiratory - --Intubated for the OR Aspiration episode during intubation Continue with ventilatory support Keep RASS -1 Daily sedation holidays and SBT's Chlorhexidine mouthwash -- Bilateral pleural effusion R>L Etiology is likely ascitic fluid Status post right-sided thoracentesis 11/30/2024, 1250 serous fluid removed Culture negative to date --Active smoker with probable COPD Does not seem to be bronchospastic GI - -- Pneumoperitoneum secondary to jejunal perforation Patient did have paracentesis done 11/28/2024 S/p surgery 11/29/2024, surgery following Continue with antibiotics -- History of C. difficile On prophylactic vancomycin RENAL/LYTES - -- ISA Probability of hepatorenal syndrome Also was hypotensive on 11/28/2024 Urine sodium 34 Nephrology on board --S/p hypernatremia Reason she came - -Continue with Sheth catheter- ENDO - -- ICU hypoglycemia protocol HEME - -- Acute blood loss anemia S/p 2 units PRBC, another 1 unit given 12/01/2024 Monitor H&H GI on board ID - -- SBP with perforation of jejunum Continue with antibiotics for anaerobic as well as gram-negative coverage --Prophylaxis VTE: IPC GI: Pantoprazole Lines: Right IJ, right radial, positive ETT, positive Sheth Diet: N.p.o. Plan: In/out: +2.4 L, urine output 875, ESTRELLITA drain output 740 mL 2D echo shows EF of only 25-30%, which is new compared to previous echo done in 06/2024 That could be one of the reason why patient came in with ascites on top of the perforation Cardiology will be consulted and patient will be started on dobutamine Will try to wean off Levophed Complete the course of albumin 37.5 g on a daily basis Patient is still requiring very high vasopressor support. Overall prognosis is guarded I have personally spent 42 minutes of critical care time in the direct management of this patient. This is a life/limb threatening event. This includes time spent evaluating patient, direct bedside care, chart review, placing orders, interpretation of diagnostic studies, discussion with consultants, patient, and family members, as well as other required patient management activities. This time is exclusive of all separately billable procedures, and teaching time and separate from and in addition to any other critical care service time. Admission and Anticipated Discharge Date Admission Date: November 27, 2024 Subjective Patient seen and examined at bedside. No acute distress, no adverse events overnight He was on 50 of fentanyl, 0.22 of Levophed and 0.04 of vasopressin at the time of examination He was RASS -1, he did open his eyes on calling his name but does not follow any commands Has been breathing over the vent. Urine output unfortunately is not that good. Review of Systems 2 Review of Systems: All systems reviewed & are unremarkable except as noted in Subjective and Unobtainable due to endotracheal tube Physical Exam 2 Physical Exam: Constitutional: No acute distress, frail-appearing HEENT: PERRLA Respiratory system: Decreased air entry bilaterally, more decreased on the right side, no wheeze, no rhonchi, positive crackles bilaterally CVS: S1-S2 positive, no murmurs or gallops, tachycardia Abdomen: Soft, nontender, nondistended, decreased bowel sounds x4, dressing with ESTRELLITA drain in place Extremities: +2 pulses bilaterally radialis/ dorsalis pedis, no cyanosis, +2 pitting edema bilateral lower extremity Neuro: Intubated and sedated, breathing with the vent Psych: Unable to assess G/U: Positive Sheth Skin: no rashes, warm and dry Lymphatic: no cervical or axillary lymphadenopathy Results & Data Results & Data Vital Signs (Past 12 Hours) Vital Signs Temp Pulse Resp BP BP Pulse Ox FiO2 12/01/24 08:00 30 12/01/24 08:00 125 H 106/61 12/01/24 08:00 88 12/01/24 07:28 92/44 L 12/01/24 07:23 92/43 L 12/01/24 06:51 94/48 L 12/01/24 06:22 36.7 C 125 H 20 106/61 97 12/01/24 04:00 114/72 12/01/24 04:00 35 12/01/24 04:00 92/44 L 12/01/24 03:48 123 H 20 90 12/01/24 03:45 86 24 92 30 12/01/24 03:30 95/58 L 12/01/24 03:18 87 24 90 12/01/24 02:30 92/62 L 12/01/24 02:24 83 24 93 12/01/24 02:00 83 24 92 12/01/24 02:00 105/62 12/01/24 02:00 105/62 12/01/24 02:00 105/62 12/01/24 02:00 105/62 12/01/24 01:00 106/62 12/01/24 01:00 106/62 12/01/24 01:00 106/62 12/01/24 01:00 106/62 12/01/24 01:00 83 24 96 12/01/24 00:33 82 24 96 12/01/24 00:30 113/65 12/01/24 00:30 113/65 12/01/24 00:30 113/65 12/01/24 00:00 109/65 12/01/24 00:00 35 12/01/24 00:00 115/51 L 11/30/24 23:45 84 24 96 11/30/24 23:30 115/64 11/30/24 23:30 115/64 11/30/24 23:30 115/64 11/30/24 23:27 85 24 97 11/30/24 23:15 85 24 99 30 11/30/24 23:03 86 24 97 11/30/24 23:00 121/69 11/30/24 23:00 121/69 11/30/24 22:42 86 24 97 11/30/24 22:30 106/64 11/30/24 22:30 106/64 11/30/24 22:30 106/64 11/30/24 22:18 87 24 98 11/30/24 22:00 87 24 96 11/30/24 22:00 117/66 11/30/24 21:37 95/51 L 11/30/24 21:37 95/51 L 11/30/24 21:35 92/52 L 11/30/24 21:27 135 H 24 95 11/30/24 21:25 91/67 L 11/30/24 21:24 142 H 24 95 11/30/24 21:22 111/55 L 11/30/24 21:20 103/64 11/30/24 21:15 89 24 100 11/30/24 21:15 101/57 L 11/30/24 21:15 101/57 L 11/30/24 21:10 109/56 L 11/30/24 21:10 109/56 L 11/30/24 21:07 99/58 L Laboratory Results 12/01/24 04:05 12/01/24 04:05 Coding Level of Care Code 56426 CRITICAL CARE 1ST 30-74M Diagnoses Pneumoperitoneum K66.8 History of Clostridioides difficile infection Z86.19 Abdominal ascites K70.31 Ascites type: due to alcoholic cirrhosis Pleural effusion J90 GIB (gastrointestinal bleeding) K92.2 GI bleed type/associated pathology: unspecified gastrointestinal hemorrhage type PSVT (paroxysmal supraventricular tachycardia) I47.10 Aspiration into lower respiratory tract T17.800A Bed bug bite W57.XXXA Encounter type: initial encounter Alcohol abuse F10.10 Transaminitis R74.01 ISA (acute kidney injury) N17.9 COPD (chronic obstructive pulmonary disease) J44.9 High anion gap metabolic acidosis E87.29 CHF (congestive heart failure) I50.9 (3) Abdominal ascites Ascites type: due to alcoholic cirrhosis Qualified Code(s): K70.31 - Alcoholic cirrhosis of liver with ascites (5) GIB (gastrointestinal bleeding) GI bleed type/associated pathology: unspecified gastrointestinal hemorrhage type Qualified Code(s): K92.2 - Gastrointestinal hemorrhage, unspecified (8) Bed bug bite Encounter type: initial encounter Qualified Code(s): W57.XXXA - Bitten or stung by nonvenomous insect and other nonvenomous arthropods, initial encounter
--- NOTE | 2024-12-01 10:36 | Communication Note ---
Date of Service: December 01, 2024 GI has been following this patient due to anemia, however do note that he has had other medical issues arise since initial consult. No current plan for e ndoscopic evaluation given his overall medical status. Continue to monitor for GI bleeding. Consider vitamin K given his INR is increasing, however would defer this decision to hospitalist/CC team as they are currently managing his global plan of care.
--- NOTE | 2024-12-01 10:43 | Surgery Progress Note ---
Date of Service December 01, 2024 Assessment & Plan (1) Small bowel perforation: Plan: poor prognosis poor reserve and may not be able extubate wait at least 2-3 days prior to tube feeds con't abx Admission and Anticipated Discharge Date Admission Date: November 27, 2024 Subjective intubated and sedated Review of Systems Constitutional: + chills; no fever Physical Exam Constitutional: WD/WN, vitals as above Respiratory: Auscultation: + diminished lung sounds Cardiovascular: Rate/Rhythm: + tachycardic Gastrointestinal (Abdomen): Inspection/Auscultation: + abdominal surgical incision; abdomen not distended and + abnormal bowel sounds Percussion/Palpation: + abdomen tender and abdomen soft; no guarding and abdomen not rigid Musculoskeletal: Head/Neck/Chest: normocephalic and head atraumatic Results & Data Vital Signs (Past 12 Hours) Vital Signs Temp Pulse Resp BP BP Pulse Ox O2 Del Method 12/01/24 09:00 89 20 99 12/01/24 09:00 118/61 12/01/24 08:12 90 20 100 12/01/24 08:00 109/59 L 12/01/24 08:00 37.0 C 91 H 20 109/59 L 97 12/01/24 08:00 Mechanical Vent 12/01/24 08:00 12/01/24 08:00 125 H 106/61 12/01/24 08:00 88 12/01/24 07:57 93 H 20 96 12/01/24 07:28 92/44 L 12/01/24 07:26 37.0 C 86 20 98/56 L 99 12/01/24 07:23 92/43 L 12/01/24 07:00 122 H 20 99 Mechanical Vent 12/01/24 07:00 111/64 12/01/24 06:56 37.0 C 122 H 20 111/64 99 12/01/24 06:51 94/48 L 12/01/24 06:41 37.0 C 20 99/55 L 98 12/01/24 06:22 36.7 C 125 H 20 106/61 97 12/01/24 04:00 114/72 12/01/24 04:00 12/01/24 04:00 92/44 L 12/01/24 03:48 123 H 20 90 12/01/24 03:45 86 24 92 12/01/24 03:30 95/58 L 12/01/24 03:18 87 24 90 12/01/24 02:30 92/62 L 12/01/24 02:24 83 24 93 12/01/24 02:00 83 24 92 12/01/24 02:00 12/01/24 02:00 12/01/24 02:00 12/01/24 02:00 12/01/24 01:00 12/01/24 01:00 10612/01/24 01:00 10612/01/24 01:00 10612/01/24 01:00 83 24 96 12/01/24 00:33 82 24 96 12/01/24 00:30 113/65 12/01/24 00:30 113/65 12/01/24 00:30 113/65 12/01/24 00:00 109/65 12/01/24 00:00 12/01/24 00:00 115/51 L 11/30/24 23:45 84 24 96 11/30/24 23:30 115/64 11/30/24 23:30 115/64 11/30/24 23:30 115/64 11/30/24 23:27 85 24 97 11/30/24 23:15 85 24 99 11/30/24 23:03 86 24 97 11/30/24 23:00 121/69 11/30/24 23:00 121/69 11/30/24 22:42 86 24 97 FiO2 12/01/24 09:00 12/01/24 09:00 12/01/24 08:12 30 12/01/24 08:00 12/01/24 08:00 12/01/24 08:00 30 12/01/24 08:00 12/01/24 08:00 12/01/24 08:00 12/01/24 07:57 12/01/24 07:28 12/01/24 07:26 12/01/24 07:23 12/01/24 07:00 30 12/01/24 07:00 12/01/24 06:56 12/01/24 06:51 12/01/24 06:41 12/01/24 06:22 12/01/24 04:00 12/01/24 04:00 35 12/01/24 04:00 12/01/24 03:48 12/01/24 03:45 30 12/01/24 03:30 12/01/24 03:18 12/01/24 02:30 12/01/24 02:24 12/01/24 02:00 12/01/24 02:00 12/01/24 02:00 12/01/24 02:00 12/01/24 02:00 12/01/24 01:00 12/01/24 01:00 12/01/24 01:00 12/01/24 01:00 12/01/24 01:00 12/01/24 00:33 12/01/24 00:30 12/01/24 00:30 12/01/24 00:30 12/01/24 00:00 12/01/24 00:00 35 12/01/24 00:00 11/30/24 23:45 11/30/24 23:30 11/30/24 23:30 11/30/24 23:30 11/30/24 23:27 11/30/24 23:15 30 11/30/24 23:03 11/30/24 23:00 11/30/24 23:00 11/30/24 22:42
--- NOTE | 2024-12-01 11:00 | XCELERA ---
[id number] [id number].[email or web address]
--- NOTE | 2024-12-01 13:11 | Hospitalist Progress Note ---
Date of Service December 01, 2024 Assessment & Plan (1) Anemia: (2) GIB (gastrointestinal bleeding): (3) Alcohol abuse: (4) Abdominal ascites: (5) History of Clostridioides difficile infection: (6) Pneumoperitoneum: (7) Septic shock: (8) Small bowel perforation: (9) ISA (acute kidney injury): Plan Septic Shock/Pneumoperitoneum/Bowel Perforation - Pain not severe, no leukocytosis initially, now WBC: 12.70 - Hypotensive with tachycardia, BP steady but soft after 4th unit of PRBC and 1L NSS bolus; 99/61 - CT abdomen/pelvis showed moderate ascites, moderate body wall edema, potential gastritis vs chronic ascites - Repeat CT: pneumoperitoneum and ascites significantly increased - Large 2 cm perforation in proximal jejunum, resected small bowel and primary anastomosis; 3 liters of feculent ascites removed - NGT, Giancarlo drain, Intubated - Abx regimen modified to IV Zosyn for broad coverage - Random cortisol > 60 - Continue pressor support with Levophed - Follow blood, urine, and peritoneal cultures - Appreciate coat padder recs BL pleural effusions - CT AP: pneumoperitoneum and ascites significantly increased - CT chest: Moderately sized L. and R. pleural effusions, increased in size - CXR 11/30: Right sided small pleural effusion - R. thoracocentesis completed; 1.5 L drained - Echo (12/01/24): EF: 25-30%, previous echo (06/2024) largely unremarkable - Cardiology consult placed Severe anemia/Hemoccult positive stool - Hemoglobin has been as low as 4.1 in 06/2024 admitted for blood and iron transfusions - GI consult placed - Hemoccult stool pending, no gross melena or hematochezia. - No obvious bleeding on CT AP, potential anemia from chronic bedbug bites - 4 units PRBC given since admit, Hgb: 8.3 - Severe iron deficiency anemia, consider iron infusions - Folate/B12 wnl, Iron <10 - Consider EGD/colonoscopy once stable - CBC QAM, transfuse <8 ISA/ATN/Hypernatremia - Nephrology consulted: urine output 400 last shift, acute HD not necessary at this time - Na: 146 Free water deficit 1.7L - Continue D5W; received 2L - Monitor BMP, urine output DVT prophylaxis- SCDs only due to anemia Disposition- ICU Admission and Anticipated Discharge Date Admission Date: November 27, 2024 Supervising Physician Co-Signing Physician Notes I personally examined the patient and verified all vásquez points of history and exam, discussed case, and agree with decision making with Dr. Rizzo intubated, sedated, ICU management appreciated, echo noted vitals noted sedated on vent ETT in place no focal neuro deficits, skin with excoriations as before A/P: This patient is a 64-year-old male with a history of alcohol use disorder, severe anemia, bedbug infestation, COPD, and SVT who does not follow regularly with a physician who presents with abdominal pain, ascites, and severe anemia. Developed into worsening abdominal pain and found to have perforated viscus. Here with septic shock and peritonitis. Status post exploratory laparotomy and remains intubated and on vasopressors in the ICU -Continue broad-spectrum antibiotics, continue vasopressors, IV albumin, follow peritoneal ascites cultures, blood cultures drawn, urine culture -Acute kidney injury -this is secondary to ATN from sepsis. --With ongoing severe anemia but improved from previous now s/p 4 units PRBCs- continue to follow CBC, transfuse as needed and eventually could give IV iron -EGD and colonoscopy when stabilized is recommended and needs furnace repairer helper for severe bedbug infestation in house Appreciate ICU management attempting to reach out to family Subjective Sedated, mechanically ventilated. Physical Exam Physical Exam: General: patient resting comfortably, NAD, non-toxic in appearance, answers questions appropriately. Skin: warm, dry, intact HEENT: NC/AT, anicteric sclera, conjunctiva without injection, moist mucus membranes. Heart: +S1/S2, regular, no m/r/g Lungs: equal air entry bilaterally, no rales/rhonchi/wheezes Abd: +BS, distended Ext: warm, no clubbing/cyanosis or edema Neuro: nonfocal, speech intact, no facial droop, moving all extremities. Results & Data Results & Data Vital Signs (Past 12 Hours) Vital Signs Temp Pulse Resp BP BP Pulse Ox O2 Del Method 12/01/24 12:00 12/01/24 12:00 88 12/01/24 10:49 88 20 100 12/01/24 09:00 89 20 99 12/01/24 09:00 118/61 12/01/24 08:12 90 20 100 12/01/24 08:00 109/59 L 12/01/24 08:00 37.0 C 91 H 20 109/59 L 97 12/01/24 08:00 Mechanical Vent 12/01/24 08:00 12/01/24 08:00 125 H 106/61 12/01/24 08:00 88 12/01/24 07:57 93 H 20 96 12/01/24 07:28 92/44 L 12/01/24 07:26 37.0 C 86 20 98/56 L 99 12/01/24 07:23 92/43 L 12/01/24 07:00 122 H 20 99 Mechanical Vent 12/01/24 07:00 111/64 12/01/24 06:56 37.0 C 122 H 20 111/64 99 12/01/24 06:51 94/48 L 12/01/24 06:41 37.0 C 20 99/55 L 98 12/01/24 06:22 36.7 C 125 H 20 106/61 97 12/01/24 04:00 114/72 12/01/24 04:00 12/01/24 04:00 92/44 L 12/01/24 03:48 123 H 20 90 12/01/24 03:45 86 24 92 12/01/24 03:30 95/58 L 12/01/24 03:18 87 24 90 12/01/24 02:30 92/62 L 12/01/24 02:24 83 24 93 12/01/24 02:00 83 24 92 12/01/24 02:00 105/62 12/01/24 02:00 105/62 12/01/24 02:00 105/62 12/01/24 02:00 105/62 FiO2 12/01/24 12:00 30 12/01/24 12:00 12/01/24 10:49 30 12/01/24 09:00 12/01/24 09:00 12/01/24 08:12 30 12/01/24 08:00 12/01/24 08:00 12/01/24 08:00 30 12/01/24 08:00 30 12/01/24 08:00 12/01/24 08:00 12/01/24 07:57 12/01/24 07:28 12/01/24 07:26 12/01/24 07:23 12/01/24 07:00 30 12/01/24 07:00 12/01/24 06:56 12/01/24 06:51 12/01/24 06:41 12/01/24 06:22 12/01/24 04:00 12/01/24 04:00 35 12/01/24 04:00 12/01/24 03:48 12/01/24 03:45 30 12/01/24 03:30 12/01/24 03:18 12/01/24 02:30 12/01/24 02:24 12/01/24 02:00 12/01/24 02:00 12/01/24 02:00 12/01/24 02:00 12/01/24 02:00 Resident Activity Tracking Resident Involvement: Resident Care Provided Care Provided: Adult Hospital Medicine (1) Anemia Anemia type: unspecified type Qualified Code(s): D64.9 - Anemia, unspecified (2) GIB (gastrointestinal bleeding) GI bleed type/associated pathology: unspecified gastrointestinal hemorrhage type Qualified Code(s): K92.2 - Gastrointestinal hemorrhage, unspecified (4) Abdominal ascites Ascites type: due to alcoholic cirrhosis Qualified Code(s): K70.31 - Alcoholic cirrhosis of liver with ascites
[2024-12-01 14:15] LABS: Hematocrit (blood only) 27.3 % (42.0-52.0); Hemoglobin 8.5 g/dl (14.0-18.0)
[2024-12-01] MEDS ORDERED: STAT IV Infusion **Titration per Protocol STA (15:00)
[2024-12-01] MEDS: DOBUTamine / D5W 1,000 MG/250 ML BAG IV SCH (15:23)
--- NOTE | 2024-12-01 16:41 | Billing Data ---
Date of Service December 01, 2024 Coding Level of Care Code 12928 SUB INP/OBS CARE
[2024-12-02 05:50] LABS: BUN Creatinine Ratio 31.6 (10-20); Calcium 7.6 mg/dl (8.6-10.3); Creatinine Clr Calc Pharmacy 46.9 ml/min; Phosphorus 3.2 mg/dl (2.5-4.9); Potassium 3.8 mmol/L (3.5-5.1)
[2024-12-02 06:07] LABS: INR 1.8 (0.9-1.1); Prothrombin Time 18.1 Seconds (9.0-12.0)
[2024-12-02 06:09] LABS: Basophils # (auto) 0.03 K/uL (0.00-0.20); Basophils % (auto) 0.2 %; Eosinophils # (auto) 0.03 K/uL (0.00-0.50); Eosinophils % (auto) 0.2 %; Hematocrit (blood only) 24.8 % (42.0-52.0); Hemoglobin 7.3 g/dl (14.0-18.0); Hypochromasia Present; Immature Granulocytes # (auto) 0.15 K/uL (0.01-0.20); Lymphocytes # (auto) 1.31 K/uL (1.20-3.40); Lymphocytes % (auto) 8.4 %; Mean Corpuscular Hemoglobin 22.4 pg (25.0-34.0); Mean Corpuscular Hgb Conc 29.4 g/dL (32.0-36.0); Mean Corpuscular Volume 76.1 fL (80.0-100.0); Monocytes # (auto) 1.48 K/uL (0.11-0.59); Monocytes % (auto) 9.5 %; Neutrophils # (auto) 12.51 K/uL (1.40-6.50); Neutrophils % (auto) 80.7 %; Nucleated RBC # (auto) 0.24 K/uL (0.00-0.12); Nucleated RBC % (auto) 1.5 %; Platelet Count 42 K/uL (130-400); Polychromasia 1+; Red Blood Count 3.26 M/uL (4.70-6.10); White Blood Count 15.51 K/ul (4.8-10.8)
[2024-12-02 07:12] LABS: Estimated Average Glucose 111 mg/dl; Hemoglobin A1C 5.5 % (4.5-5.6)
--- NOTE | 2024-12-02 08:36 | Nephrology Progress Note ---
Date of Service December 02, 2024 Assessment & Plan (1) ISA (acute kidney injury): Plan: * ISA, likely ATN due to septic shock * Nonoliguric. UO 605 cc yesterday * 685 cc drainage from ESTRELLITA drain yesterday * Patient is net 8.5 L volume + but remains on dobutamine and pressor support * CXR 12/01/24 without significant pulmonary edema, SaO2 99% on FiO2 30% * Creatinine has improved from 1.88 to 1.58 * staff development educator plans transfusion 1 unit PRBC and wean dobutamine to off * Will start furosemide 40 mg IV BID to promote diuresis * Monitor BMP, UO (2) Hypernatremia: Plan: * Corrected. D5W stopped. Monitor BMP. Will likely have 1 L insensible losses/day (3) Small bowel perforation: Plan: * s/p proximal jejunal resection w/ primary side to side anastomosis 11/29/24 (4) Septic shock: Plan: * Levophed to maintain MAP 65-70 (5) Anemia: Plan: * Recommend transfusion to maintain Hgb > 8.0 Admission and Anticipated Discharge Date Admission Date: November 27, 2024 Subjective Mr. Castellano was evaluated in the ICU this morning. He remains sedated, mechanically ventilated. Review of Systems Review of Systems: Unobtainable due to endotracheal tube Physical Exam Constitutional: + ill appearing Eyes: PERRL, conjunctivae normal, anicteric sclerae Neck: trachea midline, no thyromegaly Cardiovascular: RRR, no murmur, no edema Gastrointestinal (Abdomen): Inspection/Auscultation: + hypoactive bowel sounds (ESTRELLITA drain in place) Results & Data Vital Signs (Past 12 Hours) Vital Signs Temp Pulse Resp BP Pulse Ox FiO2 12/02/24 08:00 87 20 99 30 12/02/24 06:00 107/60 12/02/24 06:00 37.7 C H 79 20 100 12/02/24 05:30 102/57 L 12/02/24 05:27 37.8 C H 77 20 100 12/02/24 05:06 37.8 C H 95 H 20 98 12/02/24 05:01 104/49 L 12/02/24 04:48 37.9 C H 85 20 98 12/02/24 04:32 117/66 12/02/24 04:24 138 H 20 98 12/02/24 04:18 132 H 23 100 12/02/24 04:00 120/64 12/02/24 04:00 30 12/02/24 03:57 79 20 100 12/02/24 03:50 80 20 100 30 12/02/24 03:30 81 20 100 12/02/24 03:30 110/58 L 12/02/24 03:06 92 H 20 98 12/02/24 03:00 124/65 12/02/24 03:00 124/65 12/02/24 03:00 124/65 12/02/24 02:48 80 20 100 12/02/24 02:30 117/66 12/02/24 02:21 80 20 100 12/02/24 02:15 103 H 18 99 12/02/24 01:45 80 20 100 12/02/24 01:30 114/66 12/02/24 01:27 80 20 100 12/02/24 01:03 83 24 100 12/02/24 01:00 106/57 L 12/02/24 00:36 82 20 100 12/02/24 00:30 117/65 12/02/24 00:30 117/65 12/02/24 00:30 117/65 12/02/24 00:21 79 20 100 12/02/24 00:09 80 20 100 12/02/24 00:00 30 12/02/24 00:00 80 109/60 12/02/24 00:00 87 12/01/24 23:30 105/55 L 12/01/24 23:30 82 20 100 12/01/24 23:00 36.9 C 80 20 100 12/01/24 23:00 111/63 12/01/24 22:40 78 22 98 30 12/01/24 22:30 110/62 12/01/24 22:21 85 20 100 12/01/24 22:12 94 H 21 95 12/01/24 21:30 93 H 29 H 100 12/01/24 21:30 96/64 L 12/01/24 21:06 78 20 100 12/01/24 21:00 114/64 12/01/24 21:00 114/64 12/01/24 20:48 82 20 100 Laboratory Results Laboratory Results - last 24 hr 12/01/24 12/01/24 12/01/24 04:05 13:07 13:56 WBC RBC Hgb 8.5 L Hct 27.3 L MCV MCH MCHC Plt Count Immature Gran % (Auto) Neut % (Auto) Lymph % (Auto) [place] % (Auto) Eos % (Auto) Baso % (Auto) Neut # (Auto) Lymph # (Auto) [place] # (Auto) Eos # (Auto) Baso # (Auto) Immature Gran # (Auto) Absolute Nucleated RBC Nucleated RBC % (auto) Polychromasia Hypochromasia PT INR Sodium Potassium Chloride Carbon Dioxide Anion Gap BUN Creatinine Est Cr Clr Drug Dosing eGFR BUN/Creatinine Ratio Glucose POC Glucose POC Glucose (other) 72 Estimat Average Glucose Hemoglobin A1c Calcium Phosphorus Magnesium Unsaturated IBC 116 L Random Cortisol 20.60 Crossmatch See Detail 12/01/24 12/02/24 12/02/24 18:24 00:41 05:09 WBC RBC Hgb Hct MCV MCH MCHC Plt Count Immature Gran % (Auto) Neut % (Auto) Lymph % (Auto) [place] % (Auto) Eos % (Auto) Baso % (Auto) Neut # (Auto) Lymph # (Auto) [place] # (Auto) Eos # (Auto) Baso # (Auto) Immature Gran # (Auto) Absolute Nucleated RBC Nucleated RBC % (auto) Polychromasia Hypochromasia PT INR Sodium Potassium Chloride Carbon Dioxide Anion Gap BUN Creatinine Est Cr Clr Drug Dosing eGFR BUN/Creatinine Ratio Glucose POC Glucose 129 H POC Glucose (other) 98 107 H Estimat Average Glucose Hemoglobin A1c Calcium Phosphorus Magnesium Unsaturated IBC Random Cortisol Crossmatch 12/02/24 05:18 WBC 15.51 H RBC 3.26 L Hgb 7.3 L Hct 24.8 L MCV 76.1 L MCH 22.4 L MCHC 29.4 L Plt Count 42 L Immature Gran % (Auto) 1.0 Neut % (Auto) 80.7 Lymph % (Auto) 8.4 [place] % (Auto) 9.5 Eos % (Auto) 0.2 Baso % (Auto) 0.2 Neut # (Auto) 12.51 H Lymph # (Auto) 1.31 [place] # (Auto) 1.48 H Eos # (Auto) 0.03 Baso # (Auto) 0.03 Immature Gran # (Auto) 0.15 Absolute Nucleated RBC 0.24 H Nucleated RBC % (auto) 1.5 Polychromasia 1+ Hypochromasia Present PT 18.1 H INR 1.8 H Sodium 136 Potassium 3.8 Chloride 106 Carbon Dioxide 23 Anion Gap 7 BUN 50 H Creatinine 1.58 H D Est Cr Clr Drug Dosing 46.9 eGFR 49.15 BUN/Creatinine Ratio 31.6 H Glucose 121 H POC Glucose POC Glucose (other) Estimat Average Glucose 111 Hemoglobin A1c 5.5 Calcium 7.6 L Phosphorus 3.2 Magnesium 2.0 Unsaturated IBC Random Cortisol Crossmatch PG Care Time/CCT Total # of Minutes Spent Total Time Spent with Patient: Total time spent is greater than 50% in coordination of care (as documented) at patient's floor/unit and/or counseling patient: Coding Level of Care Code 27191 SUB INP/OBS CARE 3/50MIN Diagnoses ISA (acute kidney injury) N17.9 Hypernatremia E87.0 Small bowel perforation K63.1 Septic shock A41.9; R65.21 Anemia D64.9 Anemia type: unspecified type (5) Anemia Anemia type: unspecified type Qualified Code(s): D64.9 - Anemia, unspecified
[2024-12-02] MEDS ORDERED: SODIUM CHLORIDE 0.9% 100 ML IV PRN (08:42)
[2024-12-02] MEDS ORDERED: SODIUM CHLORIDE 0.9% 50 ML IV PRN (08:42)
--- NOTE | 2024-12-02 08:42 | Critical Care Progress Note ---
Date of Service December 02, 2024 Assessment & Plan (1) Pneumoperitoneum: (2) History of Clostridioides difficile infection: (3) Abdominal ascites: (4) Pleural effusion: (5) GIB (gastrointestinal bleeding): (6) PSVT (paroxysmal supraventricular tachycardia): (7) Aspiration into lower respiratory tract: (8) Bed bug bite: (9) Alcohol abuse: (10) Transaminitis: (11) ISA (acute kidney injury): (12) COPD (chronic obstructive pulmonary disease): (13) High anion gap metabolic acidosis: (14) CHF (congestive heart failure): Plan Reason Critically Ill: 64-year-old male was admitted to the hospital for GI bleed. Patient was found to have pneumoperitoneum as well as ISA and was transferred to ICU for further management Past medical history: Alcohol abuse, COPD, ascites Neuro - [facility] ICU: Unable to assess Sedation with fentanyl Given the history of liver problems avoid benzodiazepines Cardiac - -- Shock Likely combination of sepsis as well as anesthesia Continue vasopressor support to keep MAP greater than 65 Random cortisol 21, 12/01/2024 -- New onset CHF Cardiology has been consulted Ascites could have been because of new onset CHF 2D echo 12/01/2024: EF 25-30%, moderate to severe global hypokinesis Respiratory - --Intubated for the OR Aspiration episode during intubation Continue with ventilatory support Keep RASS -1 Daily sedation holidays and SBT's Chlorhexidine mouthwash -- Bilateral pleural effusion R>L Etiology is likely ascitic fluid Status post right-sided thoracentesis 11/30/2024, 1250 serous fluid removed Culture negative to date --Active smoker with probable COPD Does not seem to be bronchospastic GI - -- Pneumoperitoneum secondary to jejunal perforation Patient did have paracentesis done 11/28/2024 S/p surgery 11/29/2024, surgery following Continue with antibiotics -- History of C. difficile On prophylactic vancomycin RENAL/LYTES - -- ISA Probability of hepatorenal syndrome Also was hypotensive on 11/28/2024 Urine sodium 34 Nephrology on board --S/p hypernatremia Reason she came - -Continue with Sheth catheter- ENDO - -- ICU hypoglycemia protocol HEME - -- Acute blood loss anemia S/p 2 units PRBC, another 1 unit given 12/01/2024 Monitor H&H GI on board --Thrombocytopenia Could be secondary to sepsis DIC cannot be ruled out ID - -- SBP with perforation of jejunum Continue with antibiotics for anaerobic as well as gram-negative coverage --Prophylaxis VTE: IPC GI: Pantoprazole Lines: Right IJ, right radial, positive ETT, positive Sheth Diet: N.p.o. Plan: In/out: +682, urine output 555, ESTRELLITA drain output 585 mL Continue with dobutamine, try to titrate down Levophed and Tylenol vasopressin if feasible If you are not able to go down on the vasopressor support then I will add hydrocortisone to the regimen as his repeat random cortisol was only 21 Will give another unit of PRBC today. I will also order autoimmune workup Vitamin K will be given to the patient as his INR is 1.8 today. The patient's platelets are trending down, INR is increasing. DIC is in the differential. I will order fibrinogen level and if it is low then I will give him cryo. Complete the course of albumin 37.5 g on a daily basis Overall prognosis is guarded Patient's sister Marcy Buitrago [phone], was updated regarding patient's critical condition I have personally spent 42 minutes of critical care time in the direct management of this patient. This is a life/limb threatening event. This includes time spent evaluating patient, direct bedside care, chart review, placing orders, interpretation of diagnostic studies, discussion with consultants, patient, and family members, as well as other required patient management activities. This time is exclusive of all separately billable procedures, and teaching time and separate from and in addition to any other critical care service time. Admission and Anticipated Discharge Date Admission Date: November 27, 2024 Subjective Patient seen and examined at bedside. No acute distress, no adverse events overnight He was on 200 of fentanyl MAP was in the 80s while being on 2.5 of dobutamine, 0.07 of Levophed and 0.04 of vasopressin He has been starting to make urine. He wakes up on voice but is not follow any commands Review of Systems 2 Review of Systems: All systems reviewed & are unremarkable except as noted in Subjective Physical Exam 2 Physical Exam: Constitutional: No acute distress, frail-appearing HEENT: PERRLA Respiratory system: Decreased air entry bilaterally, more decreased on the right side, no wheeze, no rhonchi, positive crackles bilaterally CVS: S1-S2 positive, no murmurs or gallops, tachycardia Abdomen: Soft, nontender, nondistended, decreased bowel sounds x4, dressing with ESTRELLITA drain in place Extremities: +2 pulses bilaterally radialis/ dorsalis pedis, no cyanosis, +2 pitting edema bilateral lower extremity Neuro: Intubated and sedated, breathing with the vent Psych: Unable to assess G/U: Positive Sheth Skin: no rashes, warm and dry Lymphatic: no cervical or axillary lymphadenopathy Results & Data Results & Data Vital Signs (Past 12 Hours) Vital Signs Temp Pulse Resp BP Pulse Ox FiO2 12/02/24 08:00 87 20 99 30 12/02/24 06:00 107/60 12/02/24 06:00 37.7 C H 79 20 100 12/02/24 05:30 102/57 L 12/02/24 05:27 37.8 C H 77 20 100 12/02/24 05:06 37.8 C H 95 H 20 98 12/02/24 05:01 104/49 L 12/02/24 04:48 37.9 C H 85 20 98 12/02/24 04:32 117/66 12/02/24 04:24 138 H 20 98 12/02/24 04:18 132 H 23 100 12/02/24 04:00 120/64 12/02/24 04:00 30 12/02/24 03:57 79 20 100 12/02/24 03:50 80 20 100 30 12/02/24 03:30 81 20 100 12/02/24 03:30 110/58 L 12/02/24 03:06 92 H 20 98 12/02/24 03:00 124/65 12/02/24 03:00 124/65 12/02/24 03:00 124/65 12/02/24 02:48 80 20 100 12/02/24 02:30 117/66 12/02/24 02:21 80 20 100 12/02/24 02:15 103 H 18 99 12/02/24 01:45 80 20 100 12/02/24 01:30 114/66 12/02/24 01:27 80 20 100 12/02/24 01:03 83 24 100 12/02/24 01:00 106/57 L 12/02/24 00:36 82 20 100 12/02/24 00:30 117/65 12/02/24 00:30 117/65 12/02/24 00:30 117/65 12/02/24 00:21 79 20 100 12/02/24 00:09 80 20 100 12/02/24 00:00 30 12/02/24 00:00 80 109/60 12/02/24 00:00 87 12/01/24 23:30 105/55 L 12/01/24 23:30 82 20 100 12/01/24 23:00 36.9 C 80 20 100 12/01/24 23:00 111/63 12/01/24 22:40 78 22 98 30 12/01/24 22:30 110/62 12/01/24 22:21 85 20 100 12/01/24 22:12 94 H 21 95 12/01/24 21:30 93 H 29 H 100 12/01/24 21:30 96/64 L 12/01/24 21:06 78 20 100 12/01/24 21:00 114/64 12/01/24 21:00 114/64 12/01/24 20:48 82 20 100 Laboratory Results 12/02/24 05:18 12/02/24 05:18 Coding Level of Care Code 55988 CRITICAL CARE 1ST 30-74M Diagnoses Pneumoperitoneum K66.8 History of Clostridioides difficile infection Z86.19 Abdominal ascites K70.31 Ascites type: due to alcoholic cirrhosis Pleural effusion J90 GIB (gastrointestinal bleeding) K92.2 GI bleed type/associated pathology: unspecified gastrointestinal hemorrhage type PSVT (paroxysmal supraventricular tachycardia) I47.10 Aspiration into lower respiratory tract T17.800A Bed bug bite W57.XXXA Encounter type: initial encounter Alcohol abuse F10.10 Transaminitis R74.01 ISA (acute kidney injury) N17.9 COPD (chronic obstructive pulmonary disease) J44.9 High anion gap metabolic acidosis E87.29 CHF (congestive heart failure) I50.9 (3) Abdominal ascites Ascites type: due to alcoholic cirrhosis Qualified Code(s): K70.31 - Alcoholic cirrhosis of liver with ascites (5) GIB (gastrointestinal bleeding) GI bleed type/associated pathology: unspecified gastrointestinal hemorrhage type Qualified Code(s): K92.2 - Gastrointestinal hemorrhage, unspecified (8) Bed bug bite Encounter type: initial encounter Qualified Code(s): W57.XXXA - Bitten or stung by nonvenomous insect and other nonvenomous arthropods, initial encounter
[2024-12-02 09:44] LABS: Fibrinogen 282 mg/dl (184-400)
--- NOTE | 2024-12-02 11:02 | Surgery Progress Note ---
Date of Service December 02, 2024 Assessment & Plan (1) Small bowel perforation: Plan: POD # 3 ex lap small bowel resection with primary anastomosis for large proximal jejunal perforation poor prognosis wait at least 2 days prior to tube feeds con't abx continue benito drain to bulb suction continue ICU management [facility] covering weekend Dr. Caal has seen and examined patient, agrees with above Admission and Anticipated Discharge Date Admission Date: November 27, 2024 Subjective unable to obtain due to mechanical vent opens eyes but does not follow commands Physical Exam Constitutional: + ill appearing; no acute distress ENMT: + ETT Neck: trachea midline Respiratory: no respiratory distress Gastrointestinal (Abdomen): Inspection/Auscultation: abdomen normal to inspection, + abdominal surgical incision (dressing c/d/i), + abdominal surgical drain present (serosanguineous) and + hypoactive bowel sounds; abdomen not distended and + abnormal bowel sounds Percussion/Palpation: abdomen soft; abdomen nontender and abdomen not firm Skin: no jaundice Results & Data Vital Signs (Past 12 Hours) Vital Signs Temp Pulse Resp BP Pulse Ox O2 Del Method FiO2 12/02/24 10:34 Mechanical Vent 30 12/02/24 10:15 37.9 C H 96 H 21 106/51 L 99 12/02/24 09:45 37.9 C H 76 20 118/64 99 12/02/24 09:30 37.9 C H 82 20 118/60 99 12/02/24 09:30 37.9 C H 109 H 20 100 12/02/24 09:30 114/60 12/02/24 09:30 114/60 12/02/24 09:25 37.9 C H 86 24 100/55 L 99 12/02/24 09:15 37.9 C H 82 20 100 12/02/24 09:15 100/55 L 12/02/24 09:15 100/55 L 12/02/24 09:13 37.9 C H 83 20 110/59 L 99 12/02/24 09:00 37.9 C H 82 20 100 12/02/24 09:00 110/59 L 12/02/24 08:48 37.9 C H 75 20 100 12/02/24 08:45 103/58 L 12/02/24 08:42 37.9 C H 79 20 100 12/02/24 08:36 37.9 C H 79 20 100 12/02/24 08:18 37.9 C H 78 20 100 12/02/24 08:15 109/56 L 12/02/24 08:15 109/56 L 12/02/24 08:06 37.9 C H 125 H 20 94 12/02/24 08:00 101/72 12/02/24 08:00 37.9 C H 88 20 97 12/02/24 08:00 30 12/02/24 08:00 86 12/02/24 08:00 87 20 99 30 12/02/24 07:45 37.9 C H 95 H 23 97 12/02/24 07:45 94/51 L 12/02/24 07:45 94/51 L 12/02/24 07:45 94/51 L 12/02/24 07:45 94/51 L 12/02/24 07:30 37.8 C H 102 H 20 94 12/02/24 07:27 98/56 L 12/02/24 07:27 98/56 L 12/02/24 07:27 98/56 L 12/02/24 07:09 37.8 C H 82 17 100 12/02/24 07:01 102/56 L 12/02/24 07:00 37.8 C H 95 H 22 94 12/02/24 06:51 37.8 C H 83 18 100 12/02/24 06:33 37.8 C H 78 20 100 12/02/24 06:30 112/63 12/02/24 06:30 112/63 12/02/24 06:30 112/63 12/02/24 06:27 37.8 C H 78 20 100 12/02/24 06:15 37.8 C H 81 20 100 12/02/24 06:00 107/60 12/02/24 06:00 37.7 C H 79 20 100 12/02/24 05:30 102/57 L 12/02/24 05:27 37.8 C H 77 20 100 12/02/24 05:06 37.8 C H 95 H 20 98 12/02/24 05:01 104/49 L 12/02/24 04:48 37.9 C H 85 20 98 12/02/24 04:32 117/66 12/02/24 04:24 138 H 20 98 12/02/24 04:18 132 H 23 100 12/02/24 04:00 120/64 12/02/24 04:00 30 12/02/24 03:57 79 20 100 12/02/24 03:50 80 20 100 30 12/02/24 03:30 81 20 100 12/02/24 03:30 110/58 L 12/02/24 03:06 92 H 20 98 12/02/24 03:00 12465 12/02/24 03:00 124/65 12/02/24 03:00 12412/02/24 02:48 80 20 100 12/02/24 02:30 117/66 12/02/24 02:21 80 20 100 12/02/24 02:15 103 H 18 99 12/02/24 01:45 80 20 100 12/02/24 01:30 114/66 12/02/24 01:27 80 20 100 12/02/24 01:03 83 24 100 12/02/24 01:00 106/57 L 12/02/24 00:36 82 20 100 12/02/24 00:30 117/65 12/02/24 00:30 117/65 12/02/24 00:30 117/65 12/02/24 00:21 79 20 100 12/02/24 00:09 80 20 100 12/02/24 00:00 30 12/02/24 00:00 80 109/60 12/02/24 00:00 87 12/01/24 23:30 105/55 L 12/01/24 23:30 82 20 100 12/01/24 23:00 36.9 C 80 20 100 12/01/24 23:00 111/63 Laboratory Results 12/02/24 12/02/24 12/02/24 Range/Units 09:00 08:51 05:18 WBC 15.51 H (4.8-10.8) K/ul RBC 3.26 L (4.70-6.10) M/uL Hgb 7.3 L (14.0-18.0) g/dl Hct 24.8 L (42.0-52.0) % MCV 76.1 L (80.0-100.0) fL MCH 22.4 L (25.0-34.0) pg MCHC 29.4 L (32.0-36.0) g/dL Plt Count 42 L (130-400) K/uL Immature Gran % (Auto) 1.0 % Neut % (Auto) 80.7 % Lymph % (Auto) 8.4 % Daggett % (Auto) 9.5 % Eos % (Auto) 0.2 % Baso % (Auto) 0.2 % Neut # (Auto) 12.51 H (1.40-6.50) K/uL Lymph # (Auto) 1.31 (1.20-3.40) K/uL Daggett # (Auto) 1.48 H (0.11-0.59) K/uL Eos # (Auto) 0.03 (0.00-0.50) K/uL Baso # (Auto) 0.03 (0.00-0.20) K/uL Immature Gran # (Auto) 0.15 (0.01-0.20) K/uL Absolute Nucleated RBC 0.24 H (0.00-0.12) K/uL Nucleated RBC % (auto) 1.5 % Polychromasia 1+ Hypochromasia Present Haptoglobin Pending PT 18.1 H (9.0-12.0) Seconds INR 1.8 H (0.9-1.1) Fibrinogen 282 (184-400) mg/dl Factor VIII Activity Pending Sodium 136 (136-145) mmol/L Potassium 3.8 (3.5-5.1) mmol/L Chloride 106 (98-107) mmol/L Carbon Dioxide 23 (21-32) mmol/L Anion Gap 7 (3-11) BUN 50 H (6-23) mg/dl Creatinine 1.58 H D (0.6-1.4) mg/dl Est Cr Clr Drug Dosing 46.9 ml/min eGFR 49.15 BUN/Creatinine Ratio 31.6 H (10-20) Glucose 121 H (70-99(Fasting)) mg/dl POC Glucose (70-99) mg/dl POC Glucose (other) (70-99) mg/dl Estimat Average Glucose 111 mg/dl Hemoglobin A1c 5.5 (4.5-5.6) % Calcium 7.6 L (8.6-10.3) mg/dl Phosphorus 3.2 (2.5-4.9) mg/dl Magnesium 2.0 (1.7-2.4) mg/dl Unsaturated IBC (155-355) mcg/dl Lactate Dehydrogenase 120 (86-244) U/L Random Cortisol mcg/dl YAQUELIN Screen Pending SS-A/Ro Antibody Pending SS-B/La Antibody Pending Sm ([place]) Antibody Pending PR[employer]OR Antibody Pending Scl-70 Scleroderma Ab Pending Anti-ds DNA (Crithidia) Pending Chromatin Antibody Pending Anti-Centromere Ab Pending Thyroid Antimicrosomal Pending Anti-Cardiolipin IgG Ab Pending Anti-Cardiolipin IgA Ab Pending Anti-Cardiolipin IgM Ab Pending Complement C3 Pending Complement C4 Pending Blood Type Antibody Screen Crossmatch 12/02/24 12/02/24 12/01/24 Range/Units 05:09 00:41 18:24 WBC (4.8-10.8) K/ul RBC (4.70-6.10) M/uL Hgb (14.0-18.0) g/dl Hct (42.0-52.0) % MCV (80.0-100.0) fL MCH (25.0-34.0) pg MCHC (32.0-36.0) g/dL Plt Count (130-400) K/uL Immature Gran % (Auto) % Neut % (Auto) % Lymph % (Auto) % Daggett % (Auto) % Eos % (Auto) % Baso % (Auto) % Neut # (Auto) (1.40-6.50) K/uL Lymph # (Auto) (1.20-3.40) K/uL Daggett # (Auto) (0.11-0.59) K/uL Eos # (Auto) (0.00-0.50) K/uL Baso # (Auto) (0.00-0.20) K/uL Immature Gran # (Auto) (0.01-0.20) K/uL Absolute Nucleated RBC (0.00-0.12) K/uL Nucleated RBC % (auto) % Polychromasia Hypochromasia Haptoglobin PT (9.0-12.0) Seconds INR (0.9-1.1) Fibrinogen (184-400) mg/dl Factor VIII Activity Sodium (136-145) mmol/L Potassium (3.5-5.1) mmol/L Chloride (98-107) mmol/L Carbon Dioxide (21-32) mmol/L Anion Gap (3-11) BUN (6-23) mg/dl Creatinine (0.6-1.4) mg/dl Est Cr Clr Drug Dosing ml/min eGFR BUN/Creatinine Ratio (10-20) Glucose (70-99(Fasting)) mg/dl POC Glucose 129 H (70-99) mg/dl POC Glucose (other) 107 H 98 (70-99) mg/dl Estimat Average Glucose mg/dl Hemoglobin A1c (4.5-5.6) % Calcium (8.6-10.3) mg/dl Phosphorus (2.5-4.9) mg/dl Magnesium (1.7-2.4) mg/dl Unsaturated IBC (155-355) mcg/dl Lactate Dehydrogenase (86-244) U/L Random Cortisol mcg/dl YAQUELIN Screen SS-A/Ro Antibody SS-B/La Antibody Sm ([place]) Antibody [employer]OR Antibody Scl-70 Scleroderma Ab Anti-ds DNA (Crithidia) Chromatin Antibody Anti-Centromere Ab Thyroid Antimicrosomal Anti-Cardiolipin IgG Ab Anti-Cardiolipin IgA Ab Anti-Cardiolipin IgM Ab Complement C3 Complement C4 Blood Type Antibody Screen Crossmatch 12/01/24 12/01/24 12/01/24 Range/Units 13:56 13:07 04:05 WBC (4.8-10.8) K/ul RBC (4.70-6.10) M/uL Hgb 8.5 L (14.0-18.0) g/dl Hct 27.3 L (42.0-52.0) % MCV (80.0-100.0) fL MCH (25.0-34.0) pg MCHC (32.0-36.0) g/dL Plt Count (130-400) K/uL Immature Gran % (Auto) % Neut % (Auto) % Lymph % (Auto) % Daggett % (Auto) % Eos % (Auto) % Baso % (Auto) % Neut # (Auto) (1.40-6.50) K/uL Lymph # (Auto) (1.20-3.40) K/uL Daggett # (Auto) (0.11-0.59) K/uL Eos # (Auto) (0.00-0.50) K/uL Baso # (Auto) (0.00-0.20) K/uL Immature Gran # (Auto) (0.01-0.20) K/uL Absolute Nucleated RBC (0.00-0.12) K/uL Nucleated RBC % (auto) % Polychromasia Hypochromasia Haptoglobin PT (9.0-12.0) Seconds INR (0.9-1.1) Fibrinogen (184-400) mg/dl Factor VIII Activity Sodium (136-145) mmol/L Potassium (3.5-5.1) mmol/L Chloride (98-107) mmol/L Carbon Dioxide (21-32) mmol/L Anion Gap (3-11) BUN (6-23) mg/dl Creatinine (0.6-1.4) mg/dl Est Cr Clr Drug Dosing ml/min eGFR BUN/Creatinine Ratio (10-20) Glucose (70-99(Fasting)) mg/dl POC Glucose (70-99) mg/dl POC Glucose (other) 72 (70-99) mg/dl Estimat Average Glucose mg/dl Hemoglobin A1c (4.5-5.6) % Calcium (8.6-10.3) mg/dl Phosphorus (2.5-4.9) mg/dl Magnesium (1.7-2.4) mg/dl Unsaturated IBC 116 L (155-355) mcg/dl Lactate Dehydrogenase (86-244) U/L Random Cortisol 20.60 mcg/dl YAQUELIN Screen SS-A/Ro Antibody SS-B/La Antibody Sm ([place]) Antibody [employer]OR Antibody Scl-70 Scleroderma Ab Anti-ds DNA (Crithidia) Chromatin Antibody Anti-Centromere Ab Thyroid Antimicrosomal Anti-Cardiolipin IgG Ab Anti-Cardiolipin IgA Ab Anti-Cardiolipin IgM Ab Complement C3 Complement C4 Blood Type O Positive Antibody Screen NEGATIVE Crossmatch See Detail
[2024-12-02] MEDS: FUROSEMIDE 40 MG/4 ML VIAL IV SCH (11:23)
[2024-12-02] MEDS: CASPOFUNGIN 70 MG in SODIUM CHLORIDE 0.9% 250 ML IV ONE (11:23)
--- NOTE | 2024-12-02 11:40 | Cardiology Consultation ---
Date of Consultation December 02, 2024 Assessment & Plan (1) Left ventricular dysfunction: -Moderate to severe with an ejection fraction of 25 to 30%. -Suspect this is secondary to his acute presentation and resultant septic shock. -Essentially normal high-sensitivity troponins makes coronary ischemia unlikely. -Continues to require pressor support. -s/p right sided thoracentesis, transudate. -Further recommendations depending on his clinical course. (2) Septic shock: -Likely from acute peritonitis. -Continues antibiotic support. -Continues on norepinephrine and dobutamine. (3) PSVT (paroxysmal supraventricular tachycardia): -Continue to monitor. History of Present Illness Attending Physician: Oswald Hough DO History of Present Illness Mr. Castellano is a 64-year-old male admitted on November 27 with abdominal pain, ascites, and a severe anemia (5.8 g/dl). The patient was found to have new onset left ventricular dysfunction, and therefore, this consultation was ordered. Of note, the patient has never seen a public health physician previously. The patient called 911 on the day of presentation as he felt extremely weak and lightheaded. The rail equipment operator found the patient to be lying in filthy clothes with diarrhea all around him. There was also an infestation of bedbugs throughout the house. On arrival here, his hemoglobin was 5.8. He was hypotensive and tachycardic. He was eventually found to have a perforated proximal jejunum at the time of an exploratory laparotomy. He was also found to have pneumoperitoneum and feculent ascites. This resulted in peritonitis and septic shock. He has been in the ICU on the ventilator and has required pressor support. His hemoglobin has dropped as low as 4.1 and he has experienced acute renal failure. His prognosis is guarded. An echocardiogram performed yesterday noted moderate to severe left ventricular dysfunction with an ejection fraction of 25 to 30%. There was moderate to severe global hypokinesis. There is mild mitral regurgitation. Compared with an echocardiogram performed on July 19, 2024, moderate to severe left ventricular dysfunction now present. He was also found to bilateral pleural effusions with the right side much larger than the left. He had a thoracentesis performed which removed 1.5 L of pleural fluid. The patient remains sedated and intubated in the ICU. Past medical and surgical history 1. Paroxysmal SVT 2. COPD 3. Chronic anemia 4. Chronic bedbug bites Social history Single, lives with a roommate. Smokes 1 pack of cigarettes daily according to the record. Apparently an alcoholic. Family history Unobtainable Review of systems A 10 point review of systems was undertaken and negative except that described above. Allergies Allergy/AdvReac Type Severity Reaction Status Date / Time No Known Drug Allergies Allergy Unknown Verified 07/19/24 18:46 Patient History Medical History (Updated 12/02/24 @ 11:34 by Mario Lemos MD) Septic shock COPD (chronic obstructive pulmonary disease) Macrocytic anemia Coagulopathy Anemia Alcohol dependence Social History Smoking Status: Current every day smoker Tobacco Type: Cigarettes Cigarettes Per Day: 20; Do You Dip or Chew Tobacco: No; Hx Alcohol Use: Yes Alcohol type: beer Hx Substance Use: No Preferred Language: [place] Communication Ability: Effective Scribing Machine Operator Required: No Beliefs That Will Affect Care: None Current Living Situation: Other Current Living Situation Comment: with a friend/pharmacist in charge owner of home Feels Safe at Home: Yes Assistive Devices: None Physical Exam Physical Exam: In general is a thin male lying supine in bed. HEENT exam notes an ET tube in place. Neck is supple with full carotid upstrokes. Could not assess jugular venous pressure. Cardiovascular exam reveals a regular rhythm with distant heart sounds. No obvious murmurs. Lungs no coarse breath sounds anteriorly. Abdomen is soft without bowel sounds. Extremities reveal intact radial artery pulses bilaterally. No peripheral edema. Results & Data Vital Signs (Past 12 Hours) Vital Signs Temp Pulse Resp BP Pulse Ox O2 Del Method FiO2 12/02/24 11:15 37.9 C H 91 H 22 102/45 L 95 12/02/24 10:34 Mechanical Vent 30 12/02/24 10:15 37.9 C H 96 H 21 106/51 L 99 12/02/24 09:45 37.9 C H 76 20 118/64 99 12/02/24 09:30 37.9 C H 82 20 118/60 99 12/02/24 09:30 37.9 C H 109 H 20 100 12/02/24 09:30 114/60 12/02/24 09:30 114/60 12/02/24 09:25 37.9 C H 86 24 100/55 L 99 12/02/24 09:15 37.9 C H 82 20 100 12/02/24 09:15 100/55 L 12/02/24 09:15 100/55 L 12/02/24 09:13 37.9 C H 83 20 110/59 L 99 12/02/24 09:00 37.9 C H 82 20 100 12/02/24 09:00 110/59 L 12/02/24 08:48 37.9 C H 75 20 100 12/02/24 08:45 103/58 L 12/02/24 08:42 37.9 C H 79 20 100 12/02/24 08:36 37.9 C H 79 20 100 12/02/24 08:18 37.9 C H 78 20 100 12/02/24 08:15 109/56 L 12/02/24 08:15 109/56 L 12/02/24 08:06 37.9 C H 125 H 20 94 12/02/24 08:00 101/72 12/02/24 08:00 37.9 C H 88 20 97 12/02/24 08:00 30 12/02/24 08:00 86 12/02/24 08:00 87 20 99 30 12/02/24 07:45 37.9 C H 95 H 23 97 12/02/24 07:45 94/51 L 12/02/24 07:45 94/51 L 12/02/24 07:45 94/51 L 12/02/24 07:45 94/51 L 12/02/24 07:30 37.8 C H 102 H 20 94 12/02/24 07:27 98/56 L 12/02/24 07:27 98/56 L 12/02/24 07:27 98/56 L 12/02/24 07:09 37.8 C H 82 17 100 12/02/24 07:01 102/56 L 12/02/24 07:00 37.8 C H 95 H 22 94 12/02/24 06:51 37.8 C H 83 18 100 12/02/24 06:33 37.8 C H 78 20 100 12/02/24 06:30 112/63 12/02/24 06:30 112/63 12/02/24 06:30 112/63 12/02/24 06:27 37.8 C H 78 20 100 12/02/24 06:15 37.8 C H 81 20 100 12/02/24 06:00 107/60 12/02/24 06:00 37.7 C H 79 20 100 12/02/24 05:30 102/57 L 12/02/24 05:27 37.8 C H 77 20 100 12/02/24 05:06 37.8 C H 95 H 20 98 12/02/24 05:01 104/49 L 12/02/24 04:48 37.9 C H 85 20 98 12/02/24 04:32 117/66 12/02/24 04:24 138 H 20 98 12/02/24 04:18 132 H 23 100 12/02/24 04:00 120/64 12/02/24 04:00 30 12/02/24 03:57 79 20 100 12/02/24 03:50 80 20 100 30 12/02/24 03:30 81 20 100 12/02/24 03:30 110/58 L 12/02/24 03:06 92 H 20 98 12/02/24 03:00 124/65 12/02/24 03:00 124/65 12/02/24 03:00 124/65 12/02/24 02:48 80 20 100 12/02/24 02:30 117/66 12/02/24 02:21 80 20 100 12/02/24 02:15 103 H 18 99 12/02/24 01:45 80 20 100 12/02/24 01:30 114/66 12/02/24 01:27 80 20 100 12/02/24 01:03 83 24 100 12/02/24 01:00 106/57 L 12/02/24 00:36 82 20 100 12/02/24 00:30 117/65 12/02/24 00:30 117/65 12/02/24 00:30 117/65 12/02/24 00:21 79 20 100 12/02/24 00:09 80 20 100 12/02/24 00:00 30 12/02/24 00:00 80 109/60 12/02/24 00:00 87 12/01/24 23:30 105/55 L 12/01/24 23:30 82 20 100 Laboratory Results CBC notes hemoglobin of 7.3, hematocrit 24.8, white count 15.5, and platelet count of 42,000. Electrolytes noted sodium of 136, potassium 3.8, chloride 106, bicarb 23, BUN 50, creatinine 1.58, and a glucose of 121. High-sensitivity troponins essentially normal at 20.7, and 28.5. Diagnostic Findings Echocardiogram described above. EKG notes sinus tachycardia with nonspecific T wave abnormality. Chest x-ray notes cardiomegaly and bilateral pleural effusions, right greater than left. PG Care Time/CCT Total # of Minutes Spent Total Time Spent with Patient: Total time spent is greater than 50% in coordination of care (as documented) at patient's floor/unit and/or counseling patient: Coding Level of Care Code 54801 IN/OBS CONSULT LVL 4,60M Diagnoses Left ventricular dysfunction I51.9 Septic shock A41.9; R65.21 PSVT (paroxysmal supraventricular tachycardia) I47.10
[2024-12-02] MEDS: PHYTONADIONE 5 MG in DEXTROSE 5% 50 ML IV ONE (11:44)
--- NOTE | 2024-12-02 12:01 | Hospitalist Progress Note ---
Date of Service December 02, 2024 Assessment & Plan (1) Anemia: (2) GIB (gastrointestinal bleeding): (3) Alcohol abuse: (4) Abdominal ascites: (5) History of Clostridioides difficile infection: (6) Pneumoperitoneum: (7) Septic shock: (8) Small bowel perforation: (9) ISA (acute kidney injury): Plan Septic Shock/Pneumoperitoneum/Bowel Perforation - Pain not severe, no leukocytosis initially, now WBC: 12.70 - Hypotensive with tachycardia, BP steady but soft after 4th unit of PRBC and 1L NSS bolus; 99/61 - CT abdomen/pelvis showed moderate ascites, moderate body wall edema, potential gastritis vs chronic ascites - Repeat CT: pneumoperitoneum and ascites significantly increased - Large 2 cm perforation in proximal jejunum, resected small bowel and primary anastomosis; 3 liters of feculent ascites removed - NGT, Giancarlo drain, Intubated - Abx regimen modified to IV Zosyn for broad coverage - Random cortisol > 60 - Continue pressor support with Levophed - Follow blood, urine, and peritoneal cultures - Appreciate medical care manager recs BL pleural effusions - CT AP: pneumoperitoneum and ascites significantly increased - CT chest: Moderately sized L. and R. pleural effusions, increased in size - CXR 11/30: Right sided small pleural effusion - R. thoracocentesis completed; 1.5 L drained - Echo (12/01/24): EF: 25-30%, previous echo (06/2024) largely unremarkable - Cardiology consult placed Severe anemia/Hemoccult positive stool - Hemoglobin has been as low as 4.1 in 06/2024 admitted for blood and iron transfusions - GI consult placed - Hemoccult stool pending, no gross melena or hematochezia. - No obvious bleeding on CT AP, potential anemia from chronic bedbug bites - 6 units PRBC given since admit, Hgb continues to drop: 7.3 - Severe iron deficiency anemia, consider iron infusions - Folate/B12 wnl, Iron <10 - Consider EGD/colonoscopy once stable - CBC QAM, transfuse <8 ISA/ATN/Hypernatremia - Nephrology consulted: urine output 400 last shift, acute HD not necessary at this time - Na: 146 Free water deficit 1.7L - Continue D5W; received 2L - Monitor BMP, urine output DVT prophylaxis- SCDs only due to anemia Disposition- ICU Admission and Anticipated Discharge Date Admission Date: November 27, 2024 Supervising Physician Co-Signing Physician Notes I personally examined the patient and verified all vásquez points of history and exam, discussed case, and agree with decision making with Dr. Rizzo intubated, sedated, ICU management and gis consultant input appreciated vitals noted sedated on vent ETT in place no focal neuro deficits, skin with excoriations as before A/P: This patient is a 64-year-old male with a history of alcohol use disorder, severe anemia, bedbug infestation, COPD, and SVT who does not follow regularly with a physician who presents with abdominal pain, ascites, and severe anemia. Developed into worsening abdominal pain and found to have perforated viscus. Here with septic shock and peritonitis. Status post exploratory laparotomy and remains intubated and on vasopressors in the ICU -ongoing abx, supportive care -Acute kidney injury -this is secondary to ATN from sepsis. --With ongoing severe anemia but improved from previous now s/p 6 units PRBCs- continue to follow CBC, transfuse as needed and eventually could give IV iron -EGD and colonoscopy when stabilized is recommended and needs wood room hand for severe bedbug infestation in house Appreciate ICU management While we had been unable to reach family, ICU apparently was, appreciated. Subjective Patient sedated and mechanically ventilated. Physical Exam Physical Exam: General: patient resting comfortably, NAD, non-toxic in appearance, answers questions appropriately. Skin: warm, dry, intact HEENT: NC/AT, anicteric sclera, conjunctiva without injection, moist mucus membranes. Heart: +S1/S2, regular, no m/r/g Lungs: equal air entry bilaterally, no rales/rhonchi/wheezes Abd: +BS, distended Ext: warm, no clubbing/cyanosis or edema Neuro: nonfocal, speech intact, no facial droop, moving all extremities. Results & Data Results & Data Vital Signs (Past 12 Hours) Vital Signs Temp Pulse Resp BP Pulse Ox O2 Del Method FiO2 12/02/24 11:33 83 20 99 30 12/02/24 11:15 37.9 C H 91 H 22 102/45 L 95 12/02/24 10:34 Mechanical Vent 30 12/02/24 10:15 37.9 C H 96 H 21 106/51 L 99 12/02/24 09:45 37.9 C H 76 20 118/64 99 12/02/24 09:30 37.9 C H 82 20 118/60 99 12/02/24 09:30 37.9 C H 109 H 20 100 12/02/24 09:30 114/60 12/02/24 09:30 114/60 12/02/24 09:25 37.9 C H 86 24 100/55 L 99 12/02/24 09:15 37.9 C H 82 20 100 12/02/24 09:15 100/55 L 12/02/24 09:15 100/55 L 12/02/24 09:13 37.9 C H 83 20 110/59 L 99 12/02/24 09:00 37.9 C H 82 20 100 12/02/24 09:00 110/59 L 12/02/24 08:48 37.9 C H 75 20 100 12/02/24 08:45 103/58 L 12/02/24 08:42 37.9 C H 79 20 100 12/02/24 08:36 37.9 C H 79 20 100 12/02/24 08:18 37.9 C H 78 20 100 12/02/24 08:15 109/56 L 12/02/24 08:15 109/56 L 12/02/24 08:06 37.9 C H 125 H 20 94 12/02/24 08:00 101/72 12/02/24 08:00 37.9 C H 88 20 97 12/02/24 08:00 30 12/02/24 08:00 86 12/02/24 08:00 87 20 99 30 12/02/24 07:45 37.9 C H 95 H 23 97 12/02/24 07:45 94/51 L 12/02/24 07:45 94/51 L 12/02/24 07:45 94/51 L 12/02/24 07:45 94/51 L 12/02/24 07:30 37.8 C H 102 H 20 94 12/02/24 07:27 98/56 L 12/02/24 07:27 98/56 L 12/02/24 07:27 98/56 L 12/02/24 07:09 37.8 C H 82 17 100 12/02/24 07:01 102/56 L 12/02/24 07:00 37.8 C H 95 H 22 94 12/02/24 06:51 37.8 C H 83 18 100 12/02/24 06:33 37.8 C H 78 20 100 12/02/24 06:30 112/63 12/02/24 06:30 112/63 12/02/24 06:30 112/63 12/02/24 06:27 37.8 C H 78 20 100 12/02/24 06:15 37.8 C H 81 20 100 12/02/24 06:00 107/60 12/02/24 06:00 37.7 C H 79 20 100 12/02/24 05:30 102/57 L 12/02/24 05:27 37.8 C H 77 20 100 12/02/24 05:06 37.8 C H 95 H 20 98 12/02/24 05:01 104/49 L 12/02/24 04:48 37.9 C H 85 20 98 12/02/24 04:32 117/66 12/02/24 04:24 138 H 20 98 12/02/24 04:18 132 H 23 100 12/02/24 04:00 120/64 12/02/24 04:00 30 12/02/24 03:57 79 20 100 12/02/24 03:50 80 20 100 30 12/02/24 03:30 81 20 100 12/02/24 03:30 110/58 L 12/02/24 03:06 92 H 20 98 12/02/24 03:00 124/65 12/02/24 03:00 124/65 12/02/24 03:00 124/65 12/02/24 02:48 80 20 100 12/02/24 02:30 117/66 12/02/24 02:21 80 20 100 12/02/24 02:15 103 H 18 99 12/02/24 01:45 80 20 100 12/02/24 01:30 114/66 12/02/24 01:27 80 20 100 12/02/24 01:03 83 24 100 12/02/24 01:00 106/57 L 12/02/24 00:36 82 20 100 12/02/24 00:30 117/65 12/02/24 00:30 117/65 12/02/24 00:30 117/65 12/02/24 00:21 79 20 100 12/02/24 00:09 80 20 100 Resident Activity Tracking Resident Involvement: Resident Care Provided Care Provided: Adult Hospital Medicine (1) Anemia Anemia type: unspecified type Qualified Code(s): D64.9 - Anemia, unspecified (2) GIB (gastrointestinal bleeding) GI bleed type/associated pathology: unspecified gastrointestinal hemorrhage type Qualified Code(s): K92.2 - Gastrointestinal hemorrhage, unspecified (4) Abdominal ascites Ascites type: due to alcoholic cirrhosis Qualified Code(s): K70.31 - Alcoholic cirrhosis of liver with ascites
[2024-12-02] MEDS: ACETAMINOPHEN 1,000 MG/100 ML VIAL IV PRN (16:45)
--- NOTE | 2024-12-02 17:02 | Billing Data ---
Date of Service December 02, 2024 Coding Level of Care Code 67482 SUB INP/OBS CARE
[2024-12-02] MEDS: HYDROCORTISONE SOD 100 MG in SYRINGE 0 ML IV STA (19:35)
[2024-12-03] MEDS: HYDROCORTISONE SOD 50 MG in SYRINGE 0 ML IV SCH (01:00)
[2024-12-03 05:23] LABS: BUN Creatinine Ratio 31.6 (10-20); Calcium 7.5 mg/dl (8.6-10.3); Creatinine Clr Calc Pharmacy 48.8 ml/min; Potassium 3.5 mmol/L (3.5-5.1)
[2024-12-03 05:25] LABS: Hematocrit (blood only) 26.6 % (42.0-52.0); Mean Corpuscular Hemoglobin 23.1 pg (25.0-34.0); Mean Corpuscular Hgb Conc 30.1 g/dL (32.0-36.0); Mean Corpuscular Volume 76.9 fL (80.0-100.0); Nucleated RBC # (auto) 0.23 K/uL (0.00-0.12); Nucleated RBC % (auto) 1.3 %; Platelet Count 48 K/uL (130-400); Red Blood Count 3.46 M/uL (4.70-6.10); White Blood Count 17.58 K/ul (4.8-10.8)
[2024-12-03] MEDS ORDERED: STAT IV Infusion **Titration per Protocol STA (07:18)
--- NOTE | 2024-12-03 07:25 | Hospitalist Progress Note ---
Date of Service December 03, 2024 Assessment & Plan (1) Anemia: (2) GIB (gastrointestinal bleeding): (3) Alcohol abuse: (4) Abdominal ascites: (5) History of Clostridioides difficile infection: (6) Pneumoperitoneum: (7) Septic shock: (8) Small bowel perforation: (9) ISA (acute kidney injury): Plan This patient is a 64-year-old male with a history of alcohol use disorder, severe anemia, bedbug infestation, COPD, and SVT who does not follow regularly with a physician who presents with abdominal pain, ascites, and severe anemia. Developed into worsening abdominal pain and found to have perforated viscus. Here with septic shock and peritonitis. Status post exploratory laparotomy and remains intubated and on vasopressors in the ICU Septic Shock/Pneumoperitoneum/Bowel Perforation s/p exploratory laparotomy -WBC (12/03)- 17.58 - CT abdomen/pelvis (11/19) showed moderate ascites, moderate body wall edema, potential gastritis vs chronic ascites - Repeat CT(11/29): pneumoperitoneum and ascites significantly increased. Suspect bowel perforation - Underwent Exploratory laparotomy with small bowel resection with primary anastomosis for large proximal jejunal perforation on 11/29. POD #4 . Has poor prognosis. -Mechanical Ventilation with ETT. -Continue Zosyn for broad spectrum antibiotics coverage - Large 2 cm perforation in proximal jejunum, resected small bowel and primary anastomosis; 3 liters of feculent ascites removed - Random cortisol : 21(12/01/2024) - Continue pressor support with Levophed to maintain MAP>65 - Follow blood, urine, and peritoneal cultures - Appreciate house moving supervisor recs BL pleural effusions - CT chest: Moderately sized L. and R. pleural effusions, increased in size - CXR (11/30): Right sided small pleural effusion - R. thoracocentesis completed; 1.5 L drained - Echo (12/01/24): EF: 25-30%, previous echo (06/2024) largely unremarkable - Cardiology onboard -Etiology is likely ascitic fluid Severe anemia/Hemoccult positive stool - Hemoglobin has been as low as 4.1 in 06/2024 admitted for blood and iron transfusions - no gross melena or hematochezia. - No obvious bleeding on CT AP, potential anemia from chronic bedbug bites - 6 units PRBC given since admit, Hgb continues to drop: 7.3 - Severe iron deficiency anemia, consider iron infusions - Folate/B12 wnl, Iron <10 - Consider EGD/colonoscopy once stable -GI on board - CBC QAM, transfuse <8 ISA/ATN/Hypernatremia - Nephrology on board: urine output 400 last shift, acute HD not necessary at this time - Na: 146 Free water deficit 1.7L - Continue D5W; received 2L - Monitor BMP, urine output -Continue diuretics as per nephrology H/O clostridium Difficile - Vancomycin prophylactic given Thrombocytopenia -Could be secondary to sepsis -Fibrinogen within normal limit, unlikely to be DIC -Doppler bilateral lower extremity-negative for DVT DVT prophylaxis- SCDs only due to anemia Disposition- ICU Admission and Anticipated Discharge Date Admission Date: November 27, 2024 Supervising Physician Co-Signing Physician Notes I personally examined the patient and verified all vásquez points of history and exam, discussed case, and agree with decision making with Dr. Pastor still intubated, sedated. ICU management and wellness consultant input appreciated vitals noted sedated on vent ETT in place no focal neuro deficits, skin with excoriations as before A/P: This patient is a 64-year-old male with a history of alcohol use disorder, severe anemia, bedbug infestation, COPD, and SVT who does not follow regularly with a physician who presents with abdominal pain, ascites, and severe anemia. Developed into worsening abdominal pain and found to have perforated viscus. Here with septic shock and peritonitis. Status post exploratory laparotomy and remains intubated and on vasopressors in the ICU -ongoing abx, supportive care -Acute kidney injury -this is secondary to ATN from sepsis. --With ongoing severe anemia but improved from previous now s/p 6 units PRBCs-continue to follow CBC, vitals, clinical status -EGD and colonoscopy when stabilized is recommended and needs lockstitch front edge tape sewer for severe bedbug infestation in house otherwise as above / as per ICU and consultants Subjective Patient seen and examined at bedside. No acute distress, no adverse events overnight He was on 200 of fentanyl MAP was in the 80s while being on 2.5 of dobutamine, 0.07 of Levophed and 0.04 of vasopressin He has been starting to make urine. He wakes up on voice but is not follow any commands Physical Exam Constitutional: Febrile o/n, decreasing pressor requirement Respiratory: Mechanical ventillation Cardiovascular: b/l pedal edema Gastrointestinal (Abdomen): Distended somewhat firm Midline incision with manjit is c/d/i No drainage from incision Intermittent non-obstructive bowel sounds present RLQ ESTRELLITA drain present with serous drainage that is decreasing. NGT with scant green bilious drainage. Sheth catheter with good urine output Results & Data Results & Data Vital Signs (Past 12 Hours) Vital Signs Temp Pulse Resp BP Pulse Ox O2 Del Method FiO2 12/03/24 05:30 37.7 C H 92 H 20 95 12/03/24 05:24 37.7 C H 96 H 20 93 12/03/24 05:00 117/63 12/03/24 05:00 117/63 12/03/24 05:00 37.6 C H 118 H 20 95 12/03/24 04:51 37.6 C H 128 H 21 95 12/03/24 04:45 107/54 L 12/03/24 04:45 107/54 L 12/03/24 04:30 110/54 L 12/03/24 04:30 110/54 L 12/03/24 04:30 37.6 C H 98 H 25 H 92 12/03/24 04:21 37.7 C H 88 20 91 12/03/24 04:15 108/55 L 12/03/24 04:12 37.6 C H 95 H 20 93 12/03/24 04:09 37.6 C H 96 H 20 98 12/03/24 04:00 30 12/03/24 03:48 37.6 C H 93 H 21 97 12/03/24 03:45 100/54 L 12/03/24 03:45 100/54 L 12/03/24 03:44 92 H 20 93 30 12/03/24 03:42 37.6 C H 95 H 20 92 12/03/24 03:30 119/57 L 12/03/24 03:30 37.6 C H 127 H 17 92 12/03/24 03:15 116/59 L 12/03/24 03:15 116/59 L 12/03/24 03:15 116/59 L 12/03/24 03:15 37.5 C 79 20 100 12/03/24 03:00 126/62 12/03/24 03:00 126/62 12/03/24 03:00 126/62 12/03/24 03:00 37.5 C 94 H 20 100 12/03/24 02:45 115/60 12/03/24 02:45 37.6 C H 81 20 100 12/03/24 02:30 113/59 L 12/03/24 02:30 37.6 C H 79 20 100 12/03/24 02:18 37.7 C H 79 20 98 12/03/24 02:15 106/57 L 12/03/24 02:15 106/57 L 12/03/24 02:12 37.7 C H 79 20 99 12/03/24 02:03 37.7 C H 85 20 97 12/03/24 02:00 109/55 L 12/03/24 02:00 109/55 L 12/03/24 01:48 37.7 C H 124 H 20 93 12/03/24 01:45 98/52 L 12/03/24 01:45 98/52 L 12/03/24 01:39 37.7 C H 95 H 20 94 12/03/24 01:30 37.7 C H 124 H 20 97 12/03/24 01:30 110/56 L 12/03/24 01:30 110/56 L 12/03/24 01:15 95/53 L 12/03/24 01:15 95/53 L 12/03/24 01:15 37.7 C H 85 20 95 12/03/24 01:06 37.7 C H 78 20 99 12/03/24 01:00 133/65 12/03/24 01:00 133/65 12/03/24 01:00 133/65 12/03/24 00:45 96/56 L 12/03/24 00:45 37.7 C H 87 20 97 12/03/24 00:40 Mechanical Vent 30 12/03/24 00:36 37.7 C H 86 20 97 12/03/24 00:35 88 20 95 30 12/03/24 00:30 93/56 L 12/03/24 00:30 93/56 L 12/03/24 00:30 93/56 L 12/03/24 00:27 37.6 C H 83 20 96 12/03/24 00:24 37.6 C H 119 H 20 95 12/03/24 00:00 104/53 L 12/03/24 00:00 104/53 L 12/03/24 00:00 30 12/03/24 00:00 93 H 12/02/24 23:57 37.6 C H 81 21 100 12/02/24 23:45 101/52 L 12/02/24 23:45 101/52 L 12/02/24 23:45 101/52 L 12/02/24 23:45 37.6 C H 78 21 100 12/02/24 23:30 37.7 C H 78 21 100 12/02/24 23:15 37.7 C H 120 H 20 100 12/02/24 23:15 116/57 L 12/02/24 23:15 116/57 L 12/02/24 23:06 37.8 C H 87 20 99 12/02/24 22:30 97/52 L 12/02/24 22:27 37.9 C H 90 20 94 12/02/24 22:18 37.8 C H 86 20 89 L 12/02/24 22:15 100/52 L 12/02/24 22:15 100/52 L 12/02/24 22:15 100/52 L 12/02/24 22:12 37.9 C H 80 20 92 12/02/24 22:00 116/67 12/02/24 21:51 37.8 C H 85 20 88 L 12/02/24 21:45 101/55 L 12/02/24 21:42 37.8 C H 89 20 87 L 12/02/24 21:30 37.7 C H 77 20 95 12/02/24 21:30 101/59 L 12/02/24 21:30 101/59 L 12/02/24 21:18 37.7 C H 76 20 100 12/02/24 21:15 104/54 L 12/02/24 21:15 104/54 L 12/02/24 21:00 111 H 20 94 30 12/02/24 20:45 37.7 C H 76 20 100 12/02/24 20:30 37.7 C H 83 20 100 12/02/24 20:18 37.8 C H 85 20 98 12/02/24 20:15 99/78 L 12/02/24 20:15 99/78 L 12/02/24 20:15 99/78 L 12/02/24 20:03 37.9 C H 84 20 96 12/02/24 20:00 30 12/02/24 20:00 87/60 L 12/02/24 19:45 97/46 L 12/02/24 19:45 37.9 C H 85 20 93 12/02/24 19:31 96/69 L 12/02/24 19:31 96/69 L 12/02/24 19:31 96/69 L 12/02/24 19:31 96/69 L 12/02/24 19:30 37.9 C H 96 H 20 90 12/02/24 19:24 37.8 C H 92 H 21 100 (1) Anemia Anemia type: unspecified type Qualified Code(s): D64.9 - Anemia, unspecified (2) GIB (gastrointestinal bleeding) GI bleed type/associated pathology: unspecified gastrointestinal hemorrhage type Qualified Code(s): K92.2 - Gastrointestinal hemorrhage, unspecified (4) Abdominal ascites Ascites type: due to alcoholic cirrhosis Qualified Code(s): K70.31 - Alcoholic cirrhosis of liver with ascites
[2024-12-03] MEDS: dexMEDEtomidine 200 MCG/50 ML BAG IV SCH (08:04)
[2024-12-03] MEDS: MULTI VIT W/MINERALS LIQUID 15 ML UDC PO SCH (08:05)
--- NOTE | 2024-12-03 08:24 | XRay Report ---
XR chest 1V portable CLINICAL HISTORY: eval lines/tubes/lung garcia COMPARISON STUDY: Chest CT November 29, 2024. Chest radiograph December 01, 2024. FINDINGS: The tip of the endotracheal tube is 3.8 cm above the aurea. Tip of nasogastric tube is bel ow the lower aspect of this image but at least within the proximal stomach. Right subclavian central line remains in place. There is no pneumothorax. Cardiomegaly is again noted. Mediastinal contours ar e stable. Interstitial thickening has progressed. Moderate right and small left pleural effusions hav e also progressed. There are associated airspace opacities. IMPRESSION: 1. Satisfactory positioning of lines and tubes. 2. No pneumothorax. 3. Progression of pulmonary edema and bilateral pleural effusions, right larger left. Associated airs pace opacities could reflect atelectasis or pneumonia. ACT 112: Negative or not required by law. Electronically signed by: German Perkins M.D. 12/03/2024 8:23 AM
--- NOTE | 2024-12-03 08:59 | Critical Care Progress Note ---
Date of Service December 03, 2024 Assessment & Plan (1) Pneumoperitoneum: (2) History of Clostridioides difficile infection: (3) Abdominal ascites: (4) Pleural effusion: (5) GIB (gastrointestinal bleeding): (6) PSVT (paroxysmal supraventricular tachycardia): (7) Aspiration into lower respiratory tract: (8) Bed bug bite: (9) Alcohol abuse: (10) Transaminitis: (11) ISA (acute kidney injury): (12) COPD (chronic obstructive pulmonary disease): (13) High anion gap metabolic acidosis: (14) CHF (congestive heart failure): Plan Reason Critically Ill: 64-year-old male was admitted to the hospital for GI bleed. Patient was found to have pneumoperitoneum as well as ISA and was transferred to ICU for further management Past medical history: Alcohol abuse, COPD, ascites Neuro - [facility] ICU: Unable to assess Sedation with fentanyl Given the history of liver problems avoid benzodiazepines Cardiac - -- Shock Likely combination of sepsis as well as anesthesia Continue vasopressor support to keep MAP greater than 65 Random cortisol 21, 12/01/2024 -- New onset CHF Cardiology has been consulted Ascites could have been because of new onset CHF 2D echo 12/01/2024: EF 25-30%, moderate to severe global hypokinesis Respiratory - --Intubated for the OR Aspiration episode during intubation Continue with ventilatory support Keep RASS -1 Daily sedation holidays and SBT's Chlorhexidine mouthwash -- Bilateral pleural effusion R>L Etiology is likely ascitic fluid Status post right-sided thoracentesis 11/30/2024, 1250 serous fluid removed Culture negative to date --Active smoker with probable COPD Does not seem to be bronchospastic GI - -- Pneumoperitoneum secondary to jejunal perforation Patient did have paracentesis done 11/28/2024 S/p surgery 11/29/2024, surgery following Continue with antibiotics -- History of C. difficile On prophylactic vancomycin RENAL/LYTES - -- ISA Probability of hepatorenal syndrome Also was hypotensive on 11/28/2024 Urine sodium 34 Nephrology on board --S/p hypernatremia Reason she came - -Continue with Sheth catheter- ENDO - -- ICU hypoglycemia protocol HEME - -- Acute blood loss anemia S/p 2 units PRBC, another 1 unit given 12/01/2024 Monitor H&H GI on board --Thrombocytopenia Could be secondary to sepsis Fibrinogen within normal limit, unlikely to be DIC Doppler bilateral lower extremity negative for DVT on 12/03/2024 ID - -- SBP with perforation of jejunum Continue with antibiotics for anaerobic as well as gram-negative coverage --Prophylaxis VTE: IPC GI: Pantoprazole Lines: Right IJ, right radial, positive ETT, positive Sheth Diet: N.p.o. Plan: In/out: -134, urine output 2165 Chest x-ray from today does show reaccumulation of pleural effusion on the right side with pulmonary vascular congestion. His thrombocytopenia is getting worse, I did order Doppler bilateral lower extremity rule out DVT and it was negative. I will try to transition off fentanyl and put the patient on Precedex. Continue with dobutamine, try to titrate down Levophed and Tylenol vasopressin if feasible Continue with diuretics as per nephrology Patient's sister Marcy Buitrago [phone], was updated regarding patient's critical condition I have personally spent 36 minutes of critical care time in the direct management of this patient. This is a life/limb threatening event. This includes time spent evaluating patient, direct bedside care, chart review, placing orders, interpretation of diagnostic studies, discussion with consultants, patient, and family members, as well as other required patient management activities. This time is exclusive of all separately billable procedures, and teaching time and separate from and in addition to any other critical care service time. Admission and Anticipated Discharge Date Admission Date: November 27, 2024 Subjective Patient seen and examined at bedside. No acute distress, no adverse events overnight He was on 100 of fentanyl and 0.9 on Precedex at the time of examination He was RASS -2 MAP was 82, 2.5 dobutamine Afebrile Review of Systems 2 Review of Systems: All systems reviewed & are unremarkable except as noted in Subjective Physical Exam 2 Physical Exam: Constitutional: No acute distress, frail-appearing HEENT: PERRLA Respiratory system: Decreased air entry bilaterally, more decreased on the right side, no wheeze, no rhonchi, positive crackles bilaterally CVS: S1-S2 positive, no murmurs or gallops, tachycardia Abdomen: Soft, nontender, nondistended, decreased bowel sounds x4, dressing with ESTRELLITA drain in place Extremities: +2 pulses bilaterally radialis/ dorsalis pedis, no cyanosis, +2 pitting edema bilateral lower extremity Neuro: Intubated and sedated, breathing with the vent Psych: Unable to assess G/U: Positive Sheth Skin: no rashes, warm and dry Lymphatic: no cervical or axillary lymphadenopathy Results & Data Results & Data Vital Signs (Past 12 Hours) Vital Signs Temp Pulse Resp BP Pulse Ox O2 Del Method FiO2 12/03/24 08:03 135 H 20 92 30 12/03/24 05:30 37.7 C H 92 H 20 95 12/03/24 05:24 37.7 C H 96 H 20 93 12/03/24 05:00 117/63 12/03/24 05:00 117/63 12/03/24 05:00 37.6 C H 118 H 20 12/03/24 04:51 37.6 C H 128 H 21 95 12/03/24 04:45 107/54 L 12/03/24 04:45 107/54 L 12/03/24 04:30 110/54 L 12/03/24 04:30 110/54 L 12/03/24 04:30 37.6 C H 98 H 25 H 92 12/03/24 04:21 37.7 C H 88 20 91 12/03/24 04:15 108/55 L 12/03/24 04:12 37.6 C H 95 H 20 93 12/03/24 04:09 37.6 C H 96 H 20 98 12/03/24 04:00 30 12/03/24 03:48 37.6 C H 93 H 21 97 12/03/24 03:45 100/54 L 12/03/24 03:45 100/54 L 12/03/24 03:44 92 H 20 93 30 12/03/24 03:42 37.6 C H 95 H 20 92 12/03/24 03:30 119/57 L 12/03/24 03:30 37.6 C H 127 H 17 92 12/03/24 03:15 116/59 L 12/03/24 03:15 116/59 L 12/03/24 03:15 116/59 L 12/03/24 03:15 37.5 C 79 20 100 12/03/24 03:00 126/62 12/03/24 03:00 126/62 12/03/24 03:00 126/62 12/03/24 03:00 37.5 C 94 H 20 100 12/03/24 02:45 115/60 12/03/24 02:45 37.6 C H 81 20 100 12/03/24 02:30 113/59 L 12/03/24 02:30 37.6 C H 79 20 100 12/03/24 02:18 37.7 C H 79 20 98 12/03/24 02:15 106/57 L 12/03/24 02:15 106/57 L 12/03/24 02:12 37.7 C H 79 20 99 12/03/24 02:03 37.7 C H 85 20 97 12/03/24 02:00 109/55 L 12/03/24 02:00 109/55 L 12/03/24 01:48 37.7 C H 124 H 20 93 12/03/24 01:45 98/52 L 12/03/24 01:45 98/52 L 12/03/24 01:39 37.7 C H 95 H 20 94 12/03/24 01:30 37.7 C H 124 H 20 97 12/03/24 01:30 110/56 L 12/03/24 01:30 110/56 L 12/03/24 01:15 95/53 L 12/03/24 01:15 95/53 L 12/03/24 01:15 37.7 C H 85 20 95 12/03/24 01:06 37.7 C H 78 20 99 12/03/24 01:00 133/65 12/03/24 01:00 133/65 12/03/24 01:00 133/65 12/03/24 00:45 96/56 L 12/03/24 00:45 37.7 C H 87 20 97 12/03/24 00:40 Mechanical Vent 30 12/03/24 00:36 37.7 C H 86 20 97 12/03/24 00:35 88 20 95 30 12/03/24 00:30 93/56 L 12/03/24 00:30 93/56 L 12/03/24 00:30 93/56 L 12/03/24 00:27 37.6 C H 83 20 96 12/03/24 00:24 37.6 C H 119 H 20 95 12/03/24 00:00 104/53 L 01/04/25 00:00 104/53 L 12/03/24 00:00 30 12/03/24 00:00 93 H 12/02/24 23:57 37.6 C H 81 21 100 12/02/24 23:45 101/52 L 12/02/24 23:45 101/52 L 12/02/24 23:45 101/52 L 12/02/24 23:45 37.6 C H 78 21 100 12/02/24 23:30 37.7 C H 78 21 100 12/02/24 23:15 37.7 C H 120 H 20 100 12/02/24 23:15 116/57 L 12/02/24 23:15 116/57 L 12/02/24 23:06 37.8 C H 87 20 99 12/02/24 22:30 97/52 L 12/02/24 22:27 37.9 C H 90 20 94 12/02/24 22:18 37.8 C H 86 20 89 L 12/02/24 22:15 100/52 L 12/02/24 22:15 100/52 L 12/02/24 22:15 100/52 L 12/02/24 22:12 37.9 C H 80 20 92 12/02/24 22:00 116/67 12/02/24 21:51 37.8 C H 85 20 88 L 12/02/24 21:45 101/55 L 12/02/24 21:42 37.8 C H 89 20 87 L 12/02/24 21:30 37.7 C H 77 20 95 12/02/24 21:30 101/59 L 12/02/24 21:30 101/59 L 12/02/24 21:18 37.7 C H 76 20 100 12/02/24 21:15 104/54 L 12/02/24 21:15 104/54 L 12/02/24 21:00 111 H 20 94 30 Laboratory Results 12/03/24 04:16 12/03/24 04:16 Coding Level of Care Code 00781 CRITICAL CARE 1ST 30-74M Diagnoses Pneumoperitoneum K66.8 History of Clostridioides difficile infection Z86.19 Abdominal ascites K70.31 Ascites type: due to alcoholic cirrhosis Pleural effusion J90 GIB (gastrointestinal bleeding) K92.2 GI bleed type/associated pathology: unspecified gastrointestinal hemorrhage type PSVT (paroxysmal supraventricular tachycardia) I47.10 Aspiration into lower respiratory tract T17.800A Bed bug bite W57.XXXA Encounter type: initial encounter Alcohol abuse F10.10 Transaminitis R74.01 ISA (acute kidney injury) N17.9 COPD (chronic obstructive pulmonary disease) J44.9 High anion gap metabolic acidosis E87.29 CHF (congestive heart failure) I50.9 (3) Abdominal ascites Ascites type: due to alcoholic cirrhosis Qualified Code(s): K70.31 - Alcoholic cirrhosis of liver with ascites (5) GIB (gastrointestinal bleeding) GI bleed type/associated pathology: unspecified gastrointestinal hemorrhage type Qualified Code(s): K92.2 - Gastrointestinal hemorrhage, unspecified (8) Bed bug bite Encounter type: initial encounter Qualified Code(s): W57.XXXA - Bitten or stung by nonvenomous insect and other nonvenomous arthropods, initial encounter
--- NOTE | 2024-12-03 09:00 | Nephrology Progress Note ---
Date of Service December 03, 2024 Assessment & Plan (1) ISA (acute kidney injury): Plan: * ISA, likely ATN due to septic shock * Nonoliguric. UO 1720 cc yesterday * 685 cc drainage from ESTRELLITA drain yesterday * Patient is net 8.5 L volume + but remains on dobutamine and pressor support * CXR 12/03/24 shows mild pulmonary edema * Creatinine is stable at 1.52 * Will increase furosemide to 40 mg IV TID to promote diuresis * Monitor BMP, UO (2) Hypernatremia: Plan: * Corrected. D5W stopped. Monitor BMP. Will likely have 1 L insensible losses/day (3) Small bowel perforation: Plan: * s/p proximal jejunal resection w/ primary side to side anastomosis 11/29/24 (4) Septic shock: Plan: * Levophed to maintain MAP 65-70 (5) Anemia: Plan: * Hgb has improved to 8.0 * s/p 6 units PRBC this hospitalization. Last transfused 1 unit PRBC 12/02/24 Admission and Anticipated Discharge Date Admission Date: November 27, 2024 Subjective Mr. Castellano was evaluated in the ICU this morning. He remains sedated, mechanically ventilated. Review of Systems Review of Systems: Unobtainable due to endotracheal tube Physical Exam Constitutional: + ill appearing Eyes: PERRL, conjunctivae normal, anicteric sclerae Neck: trachea midline, no thyromegaly Respiratory: coarse BS bilaterally Cardiovascular: RRR, no murmur, no edema Gastrointestinal (Abdomen): Inspection/Auscultation: + hypoactive bowel sounds (ESTRELLITA drain in place) Skin: no rashes, warm and dry Neurologic: sedated Results & Data Vital Signs (Past 12 Hours) Vital Signs Temp Pulse Resp BP Pulse Ox O2 Del Method FiO2 12/03/24 08:03 135 H 20 92 30 12/03/24 05:30 37.7 C H 92 H 20 95 12/03/24 05:24 37.7 C H 96 H 20 93 12/03/24 05:00 117/63 12/03/24 05:00 117/63 12/03/24 05:00 37.6 C H 118 H 20 95 12/03/24 04:51 37.6 C H 128 H 21 95 12/03/24 04:45 107/54 L 12/03/24 04:45 107/54 L 12/03/24 04:30 110/54 L 12/03/24 04:30 110/54 L 12/03/24 04:30 37.6 C H 98 H 25 H 92 12/03/24 04:21 37.7 C H 88 20 91 12/03/24 04:15 108/55 L 12/03/24 04:12 37.6 C H 95 H 20 93 12/03/24 04:09 37.6 C H 96 H 20 98 12/03/24 04:00 30 12/03/24 03:48 37.6 C H 93 H 21 97 12/03/24 03:45 100/54 L 12/03/24 03:45 100/54 L 12/03/24 03:44 92 H 20 93 30 12/03/24 03:42 37.6 C H 95 H 20 92 12/03/24 03:30 119/57 L 12/03/24 03:30 37.6 C H 127 H 17 92 12/03/24 03:15 116/59 L 12/03/24 03:15 116/59 L 12/03/24 03:15 116/59 L 12/03/24 03:15 37.5 C 79 20 100 12/03/24 03:00 126/62 12/03/24 03:00 126/62 12/03/24 03:00 126/62 12/03/24 03:00 37.5 C 94 H 20 100 12/03/24 02:45 115/60 12/03/24 02:45 37.6 C H 81 20 100 12/03/24 02:30 113/59 L 12/03/24 02:30 37.6 C H 79 20 100 12/03/24 02:18 37.7 C H 79 20 98 12/03/24 02:15 106/57 L 12/03/24 02:15 106/57 L 12/03/24 02:12 37.7 C H 79 20 99 12/03/24 02:03 37.7 C H 85 20 97 12/03/24 02:00 109/55 L 12/03/24 02:00 109/55 L 12/03/24 01:48 37.7 C H 124 H 20 93 12/03/24 01:45 98/52 L 12/03/24 01:45 98/52 L 12/03/24 01:39 37.7 C H 95 H 20 94 12/03/24 01:30 37.7 C H 124 H 20 97 12/03/24 01:30 110/56 L 12/03/24 01:30 110/56 L 12/03/24 01:15 95/53 L 12/03/24 01:15 95/53 L 12/03/24 01:15 37.7 C H 85 20 95 12/03/24 01:06 37.7 C H 78 20 99 12/03/24 01:00 133/65 12/03/24 01:00 133/65 12/03/24 01:00 133/65 12/03/24 00:45 96/56 L 12/03/24 00:45 37.7 C H 87 20 97 12/03/24 00:40 Mechanical Vent 30 12/03/24 00:36 37.7 C H 86 20 97 12/03/24 00:35 88 20 95 30 12/03/24 00:30 93/56 L 12/03/24 00:30 93/56 L 12/03/24 00:30 93/56 L 12/03/24 00:27 37.6 C H 83 20 96 12/03/24 00:24 37.6 C H 119 H 20 95 12/03/24 00:00 104/53 L 12/03/24 00:00 104/53 L 12/03/24 00:00 30 12/03/24 00:00 93 H 12/02/24 23:57 37.6 C H 81 21 100 12/02/24 23:45 101/52 L 12/02/24 23:45 101/52 L 12/02/24 23:45 101/52 L 12/02/24 23:45 37.6 C H 78 21 100 12/02/24 23:30 37.7 C H 78 21 100 12/02/24 23:15 37.7 C H 120 H 20 100 12/02/24 23:15 116/57 L 12/02/24 23:15 116/57 L 12/02/24 23:06 37.8 C H 87 20 99 12/02/24 22:30 97/52 L 12/02/24 22:27 37.9 C H 90 20 94 12/02/24 22:18 37.8 C H 86 20 89 L 12/02/24 22:15 100/52 L 12/02/24 22:15 100/52 L 12/02/24 22:15 100/52 L 12/02/24 22:12 37.9 C H 80 20 92 12/02/24 22:00 116/67 12/02/24 21:51 37.8 C H 85 20 88 L 12/02/24 21:45 101/55 L 12/02/24 21:42 37.8 C H 89 20 87 L 12/02/24 21:30 37.7 C H 77 20 95 12/02/24 21:30 101/59 L 12/02/24 21:30 101/59 L 12/02/24 21:18 37.7 C H 76 20 100 12/02/24 21:15 104/54 L 12/02/24 21:15 104/54 L 12/02/24 21:00 111 H 20 94 30 Laboratory Results Laboratory Results - last 24 hr 12/01/24 12/02/24 12/02/24 04:05 08:51 09:00 WBC RBC Hgb Hct MCV MCH MCHC Plt Count Absolute Nucleated RBC Nucleated RBC % (auto) Haptoglobin Pending Fibrinogen 282 Factor VIII Activity Pending Sodium Potassium Chloride Carbon Dioxide Anion Gap BUN Creatinine Est Cr Clr Drug Dosing eGFR BUN/Creatinine Ratio Glucose POC Glucose Calcium Lactate Dehydrogenase 120 YAQUELIN Screen Pending SS-A/Ro Antibody Pending SS-B/La Antibody Pending Sm ([place]) Antibody Pending GANG MINER Antibody Pending Scl-70 Scleroderma Ab Pending Anti-ds DNA (Crithidia) Pending Chromatin Antibody Pending Anti-Centromere Ab Pending Thyroid Antimicrosomal Pending Anti-Cardiolipin IgG Ab Pending Anti-Cardiolipin IgA Ab Pending Anti-Cardiolipin IgM Ab Pending Complement C3 Pending Complement C4 Pending Blood Type O Positive Antibody Screen NEGATIVE Crossmatch See Detail 12/02/24 12/02/24 12/03/24 11:51 16:51 00:57 WBC RBC Hgb Hct MCV MCH MCHC Plt Count Absolute Nucleated RBC Nucleated RBC % (auto) Haptoglobin Fibrinogen Factor VIII Activity Sodium Potassium Chloride Carbon Dioxide Anion Gap BUN Creatinine Est Cr Clr Drug Dosing eGFR BUN/Creatinine Ratio Glucose POC Glucose 149 H 105 H 95 Calcium Lactate Dehydrogenase YAQUELIN Screen SS-A/Ro Antibody SS-B/La Antibody Sm ([place]) Antibody GANG MINER Antibody Scl-70 Scleroderma Ab Anti-ds DNA (Crithidia) Chromatin Antibody Anti-Centromere Ab Thyroid Antimicrosomal Anti-Cardiolipin IgG Ab Anti-Cardiolipin IgA Ab Anti-Cardiolipin IgM Ab Complement C3 Complement C4 Blood Type Antibody Screen Crossmatch 12/03/24 04:16 WBC 17.58 H RBC 3.46 L Hgb 8.0 L Hct 26.6 L MCV 76.9 L MCH 23.1 L MCHC 30.1 L Plt Count 48 L Absolute Nucleated RBC 0.23 H Nucleated RBC % (auto) 1.3 Haptoglobin Fibrinogen Factor VIII Activity Sodium 141 Potassium 3.5 Chloride 109 H Carbon Dioxide 24 Anion Gap 8 BUN 48 H Creatinine 1.52 H Est Cr Clr Drug Dosing 48.8 eGFR 51.49 BUN/Creatinine Ratio 31.6 H Glucose 91 POC Glucose Calcium 7.5 L Lactate Dehydrogenase YAQUELIN Screen SS-A/Ro Antibody SS-B/La Antibody Sm ([place]) Antibody GANG MINER Antibody Scl-70 Scleroderma Ab Anti-ds DNA (Crithidia) Chromatin Antibody Anti-Centromere Ab Thyroid Antimicrosomal Anti-Cardiolipin IgG Ab Anti-Cardiolipin IgA Ab Anti-Cardiolipin IgM Ab Complement C3 Complement C4 Blood Type Antibody Screen Crossmatch PG Care Time/CCT Total # of Minutes Spent Total Time Spent with Patient: Total time spent is greater than 50% in coordination of care (as documented) at patient's floor/unit and/or counseling patient: Coding Level of Care Code 55986 SUB INP/OBS CARE 3/50MIN Diagnoses ISA (acute kidney injury) N17.9 Hypernatremia E87.0 Small bowel perforation K63.1 Septic shock A41.9; R65.21 Anemia D64.9 Anemia type: unspecified type (5) Anemia Anemia type: unspecified type Qualified Code(s): D64.9 - Anemia, unspecified
--- NOTE | 2024-12-03 09:25 | Surgery Progress Note ---
Date of Service December 03, 2024 Assessment & Plan (1) Small bowel perforation: (2) CHF (congestive heart failure): (3) Abdominal ascites: (4) Alcohol abuse: Plan 64-year-old male with PMHx of alcohol abuse, COPD and liver disease was admitted to the hospital for GI bleed. Patient was found to have pneumoperitoneum as well as ISA and was transferred to ICU for further management POD 4 from exploratory laparotomy with partial jejunal resection and and anastomosis. Persistent and increased leukocytosis, sepsis seems to be improving with improving hemodynamics. Febrile o/n with a normal temp this am. Continues on Caspofungin, Zosyn and Vancomycin. CHF with EF 25-30%, cardiology on board. H/H drifted down to 7.3/24.8 yesterday, patient is s/p 1U PRBCs and follow up H/H this am 07/25.6. Patient with minimal pressor requirement, remains on mechanical ventilation this am and ICU team with plans for trial extubation. May leave midline incision open to air. There are no signs of infection involving the surgical site. Would not begin feeds as of yet. Surgery will follow up in the am. Admission and Anticipated Discharge Date Admission Date: November 27, 2024 Subjective Patient is intubated, awake and agitated. Physical Exam Constitutional: Febrile o/n, decreasing pressor requirement Respiratory: Mechanical ventillation Cardiovascular: b/l pedal edema Gastrointestinal (Abdomen): Distended somewhat firm Midline incision with manjit is c/d/i No drainage from incision Intermittent non-obstructive bowel sounds present RLQ ESTRELLITA drain present with serous drainage that is decreasing. NGT with scant green bilious drainage. Sheth catheter with good urine output Results & Data Vital Signs (Past 12 Hours) Vital Signs Temp Pulse Resp BP Pulse Ox O2 Del Method FiO2 12/03/24 08:30 37.5 C 92 H 21 93 12/03/24 08:15 110/56 L 12/03/24 08:15 37.6 C H 96 H 20 89 L 12/03/24 08:03 135 H 20 92 30 12/03/24 07:45 111/58 L 12/03/24 07:39 37.6 C H 103 H 26 H 94 12/03/24 07:33 37.6 C H 101 H 24 94 12/03/24 07:30 111/58 L 12/03/24 07:21 37.6 C H 122 H 20 92 12/03/24 07:15 102/80 12/03/24 07:12 37.6 C H 124 H 17 90 12/03/24 07:06 37.6 C H 88 20 90 12/03/24 07:00 114/60 12/03/24 05:30 37.7 C H 92 H 20 95 12/03/24 05:24 37.7 C H 96 H 20 93 12/03/24 05:00 117/63 12/03/24 05:00 117/63 12/03/24 05:00 37.6 C H 118 H 20 95 12/03/24 04:51 37.6 C H 128 H 21 95 12/03/24 04:45 107/54 L 12/03/24 04:45 107/54 L 12/03/24 04:30 110/54 L 12/03/24 04:30 110/54 L 12/03/24 04:30 37.6 C H 98 H 25 H 92 12/03/24 04:21 37.7 C H 88 20 91 12/03/24 04:15 108/55 L 12/03/24 04:12 37.6 C H 95 H 20 93 12/03/24 04:09 37.6 C H 96 H 20 98 12/03/24 04:00 30 12/03/24 03:48 37.6 C H 93 H 21 97 12/03/24 03:45 100/54 L 12/03/24 03:45 100/54 L 12/03/24 03:44 92 H 20 93 30 12/03/24 03:42 37.6 C H 95 H 20 92 12/03/24 03:30 119/57 L 12/03/24 03:30 37.6 C H 127 H 17 92 12/03/24 03:15 116/59 L 12/03/24 03:15 116/59 L 12/03/24 03:15 116/59 L 12/03/24 03:15 37.5 C 79 20 100 12/03/24 03:00 126/62 12/03/24 03:00 126/62 12/03/24 03:00 126/62 12/03/24 03:00 37.5 C 94 H 20 100 12/03/24 02:45 115/60 12/03/24 02:45 37.6 C H 81 20 100 12/03/24 02:30 113/59 L 12/03/24 02:30 37.6 C H 79 20 100 12/03/24 02:18 37.7 C H 79 20 98 12/03/24 02:15 106/57 L 12/03/24 02:15 106/57 L 12/03/24 02:12 37.7 C H 79 20 99 12/03/24 02:03 37.7 C H 85 20 97 12/03/24 02:00 109/55 L 12/03/24 02:00 109/55 L 12/03/24 01:48 37.7 C H 124 H 20 93 12/03/24 01:45 98/52 L 12/03/24 01:45 98/52 L 12/03/24 01:39 37.7 C H 95 H 20 94 12/03/24 01:30 37.7 C H 124 H 20 97 12/03/24 01:30 110/56 L 12/03/24 01:30 110/56 L 12/03/24 01:15 95/53 L 12/03/24 01:15 95/53 L 12/03/24 01:15 37.7 C H 85 20 95 12/03/24 01:06 37.7 C H 78 20 99 12/03/24 01:00 133/65 12/03/24 01:00 133/65 12/03/24 01:00 133/65 12/03/24 00:45 96/56 L 12/03/24 00:45 37.7 C H 87 20 97 12/03/24 00:40 Mechanical Vent 30 12/03/24 00:36 37.7 C H 86 20 97 12/03/24 00:35 88 20 95 30 12/03/24 00:30 93/56 L 12/03/24 00:30 93/56 L 12/03/24 00:30 93/56 L 12/03/24 00:27 37.6 C H 83 20 96 12/03/24 00:24 37.6 C H 119 H 20 95 12/03/24 00:00 104/53 L 12/03/24 00:00 104/53 L 12/03/24 00:00 30 12/03/24 00:00 93 H 12/02/24 23:57 37.6 C H 81 21 100 12/02/24 23:45 101/52 L 12/02/24 23:45 101/52 L 12/02/24 23:45 101/52 L 12/02/24 23:45 37.6 C H 78 21 100 12/02/24 23:30 37.7 C H 78 21 100 12/02/24 23:15 37.7 C H 120 H 20 100 12/02/24 23:15 116/57 L 12/02/24 23:15 116/57 L 12/02/24 23:06 37.8 C H 87 20 99 12/02/24 22:30 97/52 L 12/02/24 22:27 37.9 C H 90 20 94 12/02/24 22:18 37.8 C H 86 20 89 L 12/02/24 22:15 100/52 L 12/02/24 22:15 100/52 L 12/02/24 22:15 100/52 L 12/02/24 22:12 37.9 C H 80 20 92 12/02/24 22:00 116/67 12/02/24 21:51 37.8 C H 85 20 88 L 12/02/24 21:45 101/55 L 12/02/24 21:42 37.8 C H 89 20 87 L 12/02/24 21:30 37.7 C H 77 20 95 12/02/24 21:30 101/59 L 12/02/24 21:30 101/59 L 12/02/24 21:18 37.7 C H 76 20 100 12/02/24 21:15 104/54 L 12/02/24 21:15 104/54 L PG Care Time/CCT Total # of Minutes Spent Total Time Spent with Patient: Total time spent is greater than 50% in coordination of care (as documented) at patient's floor/unit and/or counseling patient: Coding Level of Care Code 70250 Post Operative Follow-Up Diagnoses Small bowel perforation K63.1 CHF (congestive heart failure) I50.9 Abdominal ascites K70.31 Ascites type: due to alcoholic cirrhosis Alcohol abuse F10.10 (3) Abdominal ascites Ascites type: due to alcoholic cirrhosis Qualified Code(s): K70.31 - Alcoholic cirrhosis of liver with ascites
[2024-12-03 09:28] LABS: Phosphorus 2.9 mg/dl (2.5-4.9)
--- NOTE | 2024-12-03 12:02 | Ultrasound Report ---
BILATERAL LOWER EXTREMITY VENOUS DOPPLER CLINICAL HISTORY: Recent surgery. Lower extremity edema. Evaluate for deep venous thrombus. COMPARISON STUDY: No previous studies for comparison. TECHNIQUE: Sonography of the deep venous system of the bilateral lower extremities was performed. Co mpression and augmentation were evaluated. FINDINGS: The bilateral common femoral, superficial femoral and popliteal veins were compressible. A ugmentation was normal. Flow was shown within the deep calf vessels. IMPRESSION: No evidence of deep venous thrombus within the bilateral lower extremities. ACT 112: Negative or not required by law. Electronically signed by: German Perkins M.D. 12/03/2024 12:01 PM
[2024-12-03] MEDS: CASPOFUNGIN 50 MG in SODIUM CHLORIDE 0.9% 250 ML IV SCH (12:14)
[2024-12-03] MEDS: FUROSEMIDE 40 MG/4 ML VIAL IV SCH (12:14)
--- NOTE | 2024-12-03 12:33 | Billing Data ---
Date of Service December 03, 2024 Coding Level of Care Code 59890 SUB INP/OBS CARE
--- NOTE | 2024-12-03 22:41 | Communication Note ---
Date of Service: December 03, 2024 Patient pulled out NGT, attempt was made by nursing staff to replace however secondary to patient's agitation as well as inability to follow commands, we were unsuccessful at replacing this. He does have some bleeding from his nares. As he is with platelet count in the 40s, will hold on other attempts at replacing as to not cause any further trauma and risk a brisk nose bleed that could compromise his respiratory status at this time. May require sedation for replacement if the NGT remains pertinent. Follow clinically overnight. Db HURLEY ([facility]-)
[2024-12-04 05:29] LABS: BUN Creatinine Ratio 31.7 (10-20); Calcium 8.1 mg/dl (8.6-10.3); Creatinine Clr Calc Pharmacy 60.2 ml/min; Potassium 2.4 mmol/L (3.5-5.1)
[2024-12-04] MEDS: POTASSIUM CHLORIDE / WTR 10 MEQ/100 ML PLCT IV SCH ×2 (05:44→17:46)
[2024-12-04 06:04] LABS: Hematocrit (blood only) 31.2 % (42.0-52.0); Hemoglobin 9.7 g/dl (14.0-18.0); Mean Corpuscular Hemoglobin 23.8 pg (25.0-34.0); Mean Corpuscular Hgb Conc 31.1 g/dL (32.0-36.0); Mean Corpuscular Volume 76.5 fL (80.0-100.0); Nucleated RBC # (auto) 0.12 K/uL (0.00-0.12); Nucleated RBC % (auto) 0.5 %; Platelet Count 68 K/uL (130-400); Red Blood Count 4.08 M/uL (4.70-6.10); White Blood Count 24.01 K/ul (4.8-10.8)
--- NOTE | 2024-12-04 09:07 | Critical Care Progress Note ---
Date of Service December 04, 2024 Assessment & Plan (1) Pneumoperitoneum: (2) History of Clostridioides difficile infection: (3) Abdominal ascites: (4) Pleural effusion: (5) GIB (gastrointestinal bleeding): (6) PSVT (paroxysmal supraventricular tachycardia): (7) Aspiration into lower respiratory tract: (8) Bed bug bite: (9) Alcohol abuse: (10) Transaminitis: (11) ISA (acute kidney injury): (12) COPD (chronic obstructive pulmonary disease): (13) High anion gap metabolic acidosis: (14) CHF (congestive heart failure): Plan Reason Critically Ill: 64-year-old male was admitted to the hospital for GI bleed. Patient was found to have pneumoperitoneum as well as ISA and was transferred to ICU for further management Past medical history: Alcohol abuse, COPD, ascites Neuro - [facility] ICU: Unable to assess Sedation with fentanyl Given the history of liver problems avoid benzodiazepines Cardiac - -- S/p shock Likely combination of sepsis as well as anesthesia Off vasopressors as of 12/03/2024 Random cortisol 21, 12/01/2024 -- New onset CHF Cardiology has been consulted Ascites could have been because of new onset CHF 2D echo 12/01/2024: EF 25-30%, moderate to severe global hypokinesis Respiratory - --Intubated for the OR Aspiration episode during intubation Extubated 12/03/2024 Continue with ventilatory support Keep RASS -1 Daily sedation holidays and SBT's Chlorhexidine mouthwash -- Bilateral pleural effusion R>L Etiology is likely ascitic fluid Status post right-sided thoracentesis 11/30/2024, 1250 serous fluid removed Culture negative to date Cytology negative --Active smoker with probable COPD Does not seem to be bronchospastic GI - -- Pneumoperitoneum secondary to jejunal perforation Patient did have paracentesis done 11/28/2024 S/p surgery 11/29/2024, surgery following Continue with antibiotics -- History of C. difficile On prophylactic vancomycin RENAL/LYTES - -- ISA Probability of hepatorenal syndrome Also was hypotensive on 11/28/2024 Urine sodium 34 Nephrology on board --S/p hypernatremia Reason she came - -Continue with Sheth catheter- ENDO - -- ICU hypoglycemia protocol HEME - -- Acute blood loss anemia S/p 2 units PRBC, another 1 unit given 12/01/2024 Monitor H&H GI on board --Thrombocytopenia Could be secondary to sepsis Fibrinogen within normal limit, unlikely to be DIC Doppler bilateral lower extremity negative for DVT on 12/03/2024 ID - -- SBP with perforation of jejunum Continue with antibiotics for anaerobic as well as gram-negative coverage --Prophylaxis VTE: IPC GI: Pantoprazole Lines: Peripheral, positive Sheth Diet: N.p.o. Plan: In/out: Negative 2 L, urine output 3481 Potassium being replaced Chest x-ray from today still shows bilateral pleural effusion, right>L. He is making good amount of urine. He is hyponatremic and hyperchloremic today. Likely from diuresis. Will give him D5 water total for 100 mL. Repeat BMP later today Potassium being replaced Has been off vasopressors. Goal is to get the patient off Precedex, I will give him morphine and Ativan as needed. Haloperidol could also be thought of Patient's sister Marcy Buitrago [phone] I have personally spent 33 minutes of critical care time in the direct management of this patient. This is a life/limb threatening event. This includes time spent evaluating patient, direct bedside care, chart review, placing orders, interpretation of diagnostic studies, discussion with consultants, patient, and family members, as well as other required patient management activities. This time is exclusive of all separately billable procedures, and teaching time and separate from and in addition to any other critical care service time. Admission and Anticipated Discharge Date Admission Date: November 27, 2024 Subjective Patient seen and examined at bedside. Overnight patient was restless and he pulled his NGT out They tried to put it back in but there was resistance and he started to bleed so they stopped trying it. He was on 0.8 of Precedex at the time of examination. He was oriented to self but he was restless and moaning. Denied any chest pain, no abdominal pain but on palpation he was grimacing. Systolic blood pressure was in the 120s with MAP in the low 70s Has been afebrile Review of Systems 2 Review of Systems: All systems reviewed & are unremarkable except as noted in Subjective Physical Exam 2 Physical Exam: Constitutional: No acute distress, frail-appearing HEENT: PERRLA, EOMI Respiratory system: Decreased air entry bilaterally, more decreased on the right side, no wheeze, no rhonchi, positive crackles bilaterally CVS: S1-S2 positive, no murmurs or gallops Abdomen: Soft, nontender, nondistended, decreased bowel sounds x4, dressing with ESTRELLITA drain in place Extremities: +2 pulses bilaterally radialis/ dorsalis pedis, no cyanosis, +2 pitting edema bilateral lower extremity Neuro: Awake alert oriented to only self Psych: Restless G/U: Positive Sheth Skin: no rashes, warm and dry Lymphatic: no cervical or axillary lymphadenopathy Results & Data Results & Data Vital Signs (Past 12 Hours) Vital Signs Temp Pulse Pulse Resp BP Pulse Ox O2 Del Method 12/04/24 06:00 36.4 C L 84 24 100 12/04/24 06:00 142/73 H 12/04/24 06:00 142/73 H 12/04/24 06:00 142/73 H 12/04/24 05:48 36.4 C L 87 30 H 100 12/04/24 05:42 36.4 C L 66 17 96 12/04/24 05:30 138/74 12/04/24 05:21 36.4 C L 86 25 H 100 12/04/24 05:15 36.4 C L 85 20 100 12/04/24 05:00 36.4 C L 87 28 H 99 12/04/24 05:00 132/79 12/04/24 05:00 132/79 12/04/24 04:33 36.4 C L 84 23 100 12/04/24 04:30 128/72 12/04/24 04:30 128/72 12/04/24 04:30 128/72 12/04/24 04:21 36.4 C L 79 20 98 12/04/24 04:15 36.4 C L 74 18 100 12/04/24 04:10 71 15 98 Oxymask 12/04/24 04:09 36.4 C L 75 19 99 12/04/24 03:51 36.5 C 77 17 100 12/04/24 03:42 36.2 C L 77 22 100 12/04/24 03:30 127/61 12/04/24 03:30 127/61 12/04/24 03:00 132/64 12/04/24 02:57 36.9 C 74 18 100 12/04/24 02:54 36.9 C 01/05/25 02:30 36.8 C 86 19 100 12/04/24 02:30 131/77 12/04/24 02:06 37.0 C 74 15 100 12/04/24 01:45 36.9 C 81 25 H 93 12/04/24 01:30 130/61 12/04/24 01:30 130/61 12/04/24 01:12 37.0 C 85 35 H 98 12/04/24 01:00 127/61 12/04/24 01:00 127/61 12/04/24 01:00 37.0 C 79 19 88 L 12/04/24 00:51 37.0 C 85 19 84 L 12/04/24 00:33 37.1 C 85 22 95 12/04/24 00:30 129/62 12/04/24 00:30 129/62 12/04/24 00:09 36.9 C 106 H 25 H 97 12/04/24 00:03 37.0 C 105 H 18 91 12/04/24 00:00 132/70 12/04/24 00:00 132/70 12/03/24 23:57 37.0 C 102 H 25 H 88 L 12/03/24 23:48 37.0 C 95 12/03/24 23:35 108 H 12/03/24 23:34 100 H 26 H 99 Oxymask 12/03/24 23:33 37.0 C 104 H 24 98 12/03/24 23:30 141/71 H 12/03/24 23:30 141/71 H 12/03/24 23:30 141/71 H 12/03/24 23:24 37.0 C 102 H 25 H 89 L 12/03/24 23:15 36.9 C 101 H 21 12/03/24 23:03 36.9 C 102 H 22 97 12/03/24 23:01 142/73 H 12/03/24 23:01 142/73 H 12/03/24 22:54 36.9 C 111 H 25 H 99 12/03/24 22:45 36.8 C 111 H 22 99 12/03/24 22:15 36.7 C 102 H 24 95 12/03/24 22:00 36.7 C 130 H 24 97 12/03/24 21:45 36.7 C 102 H 23 96 12/03/24 21:36 36.7 C 109 H 21 100 12/03/24 21:18 36.6 C 104 H 19 91 O2 Flow Rate 12/04/24 06:00 12/04/24 06:00 12/04/24 06:00 12/04/24 06:00 12/04/24 05:48 12/04/24 05:42 12/04/24 05:30 12/04/24 05:21 12/04/24 05:15 12/04/24 05:00 12/04/24 05:00 12/04/24 05:00 12/04/24 04:33 12/04/24 04:30 12/04/24 04:30 12/04/24 04:30 12/04/24 04:21 12/04/24 04:15 12/04/24 04:10 2 12/04/24 04:09 12/04/24 03:51 12/04/24 03:42 12/04/24 03:30 12/04/24 03:30 12/04/24 03:00 12/04/24 02:57 12/04/24 02:54 12/04/24 02:30 12/04/24 02:30 12/04/24 02:06 12/04/24 01:45 12/04/24 01:30 12/04/24 01:30 12/04/24 01:12 12/04/24 01:00 12/04/24 01:00 12/04/24 01:00 12/04/24 00:51 12/04/24 00:33 12/04/24 00:30 12/04/24 00:30 12/04/24 00:09 12/04/24 00:03 12/04/24 00:00 12/04/24 00:00 12/03/24 23:57 12/03/24 23:48 12/03/24 23:35 12/03/24 23:34 2 12/03/24 23:33 12/03/24 23:30 12/03/24 23:30 12/03/24 23:30 12/03/24 23:24 12/03/24 23:15 12/03/24 23:03 12/03/24 23:01 12/03/24 23:01 12/03/24 22:54 12/03/24 22:45 12/03/24 22:15 12/03/24 22:00 12/03/24 21:45 12/03/24 21:36 12/03/24 21:18 Laboratory Results 12/04/24 04:46 12/04/24 04:46 Coding Level of Care Code 35243 CRITICAL CARE 1ST 30-74M Diagnoses Pneumoperitoneum K66.8 History of Clostridioides difficile infection Z86.19 Abdominal ascites K70.31 Ascites type: due to alcoholic cirrhosis Pleural effusion J90 GIB (gastrointestinal bleeding) K92.2 GI bleed type/associated pathology: unspecified gastrointestinal hemorrhage type PSVT (paroxysmal supraventricular tachycardia) I47.10 Aspiration into lower respiratory tract T17.800A Bed bug bite W57.XXXA Encounter type: initial encounter Alcohol abuse F10.10 Transaminitis R74.01 ISA (acute kidney injury) N17.9 COPD (chronic obstructive pulmonary disease) J44.9 High anion gap metabolic acidosis E87.29 CHF (congestive heart failure) I50.9 (3) Abdominal ascites Ascites type: due to alcoholic cirrhosis Qualified Code(s): K70.31 - Alcoholic cirrhosis of liver with ascites (5) GIB (gastrointestinal bleeding) GI bleed type/associated pathology: unspecified gastrointestinal hemorrhage type Qualified Code(s): K92.2 - Gastrointestinal hemorrhage, unspecified (8) Bed bug bite Encounter type: initial encounter Qualified Code(s): W57.XXXA - Bitten or stung by nonvenomous insect and other nonvenomous arthropods, initial encounter
--- NOTE | 2024-12-04 09:25 | Nephrology Progress Note ---
Date of Service December 04, 2024 Assessment & Plan (1) ISA (acute kidney injury): Plan: * ISA, likely ATN due to septic shock * Brisk diuresis in response to scheduled furosemide yesterday. Neg 3.5 L last 24 hours * Now with mild hypernatremia and moderate hypokalemia * Primary service has provided IV KCl replacement * Will hold diuretics today and reassess in am * Levophed has been weaned off. Patient remains on dobutamine (LVEF 25-30%) * CXR 12/04/24 shows persistent pulmonary edema w/ bilateral pleural effusion, R>L and possible pneumonia * Creatinine improved to 1.2. Baseline 0.5-0.8. * Monitor BMP, UO. Will obtain serum Mg w/ am labs (2) Hypernatremia: Plan: * Free water deficit ~1.6 L * ICU service has ordered IV D5W * Patient pulled out NGT unable to give enteral free water at this time (3) Small bowel perforation: Plan: * s/p proximal jejunal resection w/ primary side to side anastomosis 11/29/24 (4) Septic shock: Plan: * Now off levophed * Remains on dobutamine therapy (5) Anemia: Plan: * Hgb has improved to 9.7 * s/p 6 units PRBC this hospitalization. Last transfused 1 unit PRBC 12/02/24 Admission and Anticipated Discharge Date Admission Date: November 27, 2024 Subjective Mr. Castellano was evaluated in the ICU this morning. He remains has been extubated and receiving oxygen via 2 L/min oxymask. Mr. Castellano is lethargic and did not answer questions Review of Systems Review of Systems: Unobtainable due to cognitive status Physical Exam Constitutional: + ill appearing Eyes: PERRL, conjunctivae normal, anicteric sclerae ENMT: not examined due to oxymask Neck: trachea midline, no thyromegaly Respiratory: diminished BS at R base Cardiovascular: Rate/Rhythm: regular rate and regular rhythm Extremities: + edema (1+ pretibial edema) Gastrointestinal (Abdomen): Inspection/Auscultation: + hypoactive bowel sounds (ESTRELLITA drain in place) Skin: no rashes, warm and dry Results & Data Vital Signs (Past 12 Hours) Vital Signs Temp Pulse Pulse Resp BP Pulse Ox O2 Del Method 12/04/24 09:00 128/69 12/04/24 08:57 36.7 C 75 23 100 12/04/24 08:30 131/66 12/04/24 08:06 36.7 C 76 19 100 12/04/24 08:03 36.7 C 72 16 100 12/04/24 08:00 131/70 12/04/24 08:00 Oxymask 12/04/24 07:51 36.7 C 79 15 100 12/04/24 07:21 36.6 C 80 21 100 12/04/24 07:00 134/76 12/04/24 06:00 36.4 C L 84 24 100 12/04/24 06:00 142/73 H 12/04/24 06:00 142/73 H 12/04/24 06:00 142/73 H 12/04/24 05:48 36.4 C L 87 30 H 100 12/04/24 05:42 36.4 C L 66 17 96 12/04/24 05:30 138/74 12/04/24 05:21 36.4 C L 86 25 H 100 12/04/24 05:15 36.4 C L 85 20 100 12/04/24 05:00 36.4 C L 87 28 H 99 12/04/24 05:00 132/79 12/04/24 05:00 132/79 12/04/24 04:33 36.4 C L 84 23 100 12/04/24 04:30 128/72 12/04/24 04:30 128/72 12/04/24 04:30 128/72 12/04/24 04:21 36.4 C L 79 20 98 12/04/24 04:15 36.4 C L 74 18 100 12/04/24 04:10 71 15 98 Oxymask 12/04/24 04:09 36.4 C L 75 19 99 12/04/24 03:51 36.5 C 77 17 100 12/04/24 03:42 36.2 C L 77 22 100 12/04/24 03:30 127/61 12/04/24 03:30 127/61 12/04/24 03:00 132/64 12/04/24 02:57 36.9 C 74 18 100 12/04/24 02:54 36.9 C 12/04/24 02:30 36.8 C 86 19 100 01/05/25 02:30 131/77 12/04/24 02:06 37.0 C 74 15 100 12/04/24 01:45 36.9 C 81 25 H 93 12/04/24 01:30 130/61 12/04/24 01:30 130/61 12/04/24 01:12 37.0 C 85 35 H 98 12/04/24 01:00 127/61 12/04/24 01:00 127/61 12/04/24 01:00 37.0 C 79 19 88 L 12/04/24 00:51 37.0 C 85 19 84 L 12/04/24 00:33 37.1 C 85 22 95 12/04/24 00:30 129/62 12/04/24 00:30 129/62 12/04/24 00:09 36.9 C 106 H 25 H 97 12/04/24 00:03 37.0 C 105 H 18 91 12/04/24 00:00 132/70 12/04/24 00:00 132/70 12/03/24 23:57 37.0 C 102 H 25 H 88 L 12/03/24 23:48 37.0 C 95 12/03/24 23:35 108 H 12/03/24 23:34 100 H 26 H 99 Oxymask 12/03/24 23:33 37.0 C 104 H 24 98 12/03/24 23:30 141/71 H 12/03/24 23:30 141/71 H 12/03/24 23:30 141/71 H 12/03/24 23:24 37.0 C 102 H 25 H 89 L 12/03/24 23:15 36.9 C 101 H 21 12/03/24 23:03 36.9 C 102 H 22 97 12/03/24 23:01 142/73 H 12/03/24 23:01 142/73 H 12/03/24 22:54 36.9 C 111 H 25 H 99 12/03/24 22:45 36.8 C 111 H 22 99 12/03/24 22:15 36.7 C 102 H 24 95 12/03/24 22:00 36.7 C 130 H 24 97 12/03/24 21:45 36.7 C 102 H 23 96 12/03/24 21:36 36.7 C 109 H 21 100 O2 Flow Rate 12/04/24 09:00 12/04/24 08:57 12/04/24 08:30 12/04/24 08:06 12/04/24 08:03 12/04/24 08:00 12/04/24 08:00 2 12/04/24 07:51 12/04/24 07:21 12/04/24 07:00 12/04/24 06:00 12/04/24 06:00 12/04/24 06:00 12/04/24 06:00 12/04/24 05:48 12/04/24 05:42 12/04/24 05:30 12/04/24 05:21 12/04/24 05:15 12/04/24 05:00 12/04/24 05:00 12/04/24 05:00 12/04/24 04:33 12/04/24 04:30 12/04/24 04:30 12/04/24 04:30 12/04/24 04:21 12/04/24 04:15 12/04/24 04:10 2 12/04/24 04:09 12/04/24 03:51 12/04/24 03:42 12/04/24 03:30 12/04/24 03:30 12/04/24 03:00 12/04/24 02:57 12/04/24 02:54 12/04/24 02:30 12/04/24 02:30 12/04/24 02:06 12/04/24 01:45 12/04/24 01:30 12/04/24 01:30 12/04/24 01:12 12/04/24 01:00 12/04/24 01:00 12/04/24 01:00 12/04/24 00:51 12/04/24 00:33 12/04/24 00:30 12/04/24 00:30 12/04/24 00:09 12/04/24 00:03 12/04/24 00:00 12/04/24 00:00 12/03/24 23:57 12/03/24 23:48 12/03/24 23:35 12/03/24 23:34 2 12/03/24 23:33 12/03/24 23:30 12/03/24 23:30 12/03/24 23:30 12/03/24 23:24 12/03/24 23:15 12/03/24 23:03 12/03/24 23:01 12/03/24 23:01 12/03/24 22:54 12/03/24 22:45 12/03/24 22:15 12/03/24 22:00 12/03/24 21:45 12/03/24 21:36 Laboratory Results Laboratory Results - last 24 hr 12/03/24 12/03/24 12/03/24 04:16 11:09 17:51 WBC RBC Hgb Hct MCV MCH MCHC Plt Count Absolute Nucleated RBC Nucleated RBC % (auto) Sodium Potassium Chloride Carbon Dioxide Anion Gap BUN Creatinine Est Cr Clr Drug Dosing eGFR BUN/Creatinine Ratio Glucose POC Glucose 104 H 140 H Calcium Phosphorus 2.9 Magnesium 2.0 12/03/24 12/04/24 23:41 04:46 WBC 24.01 H RBC 4.08 L Hgb 9.7 L Hct 31.2 L MCV 76.5 L MCH 23.8 L MCHC 31.1 L Plt Count 68 L Absolute Nucleated RBC 0.12 Nucleated RBC % (auto) 0.5 Sodium 146 H Potassium 2.4 L* D Chloride 109 H Carbon Dioxide 26 Anion Gap 11 BUN 39 H Creatinine 1.23 Est Cr Clr Drug Dosing 60.2 eGFR 66.38 BUN/Creatinine Ratio 31.7 H Glucose 137 H POC Glucose 152 H Calcium 8.1 L Phosphorus Pending Magnesium Pending PG Care Time/CCT Total # of Minutes Spent Total Time Spent with Patient: Total time spent is greater than 50% in coordination of care (as documented) at patient's floor/unit and/or counseling patient: Coding Level of Care Code 54879 SUB INP/OBS CARE 3/50MIN Diagnoses ISA (acute kidney injury) N17.9 Hypernatremia E87.0 Small bowel perforation K63.1 Septic shock A41.9; R65.21 Anemia D64.9 Anemia type: unspecified type (5) Anemia Anemia type: unspecified type Qualified Code(s): D64.9 - Anemia, unspecified
[2024-12-04 09:28] LABS: Magnesium 1.8 mg/dl (1.7-2.4); Phosphorus 3.4 mg/dl (2.5-4.9)
--- NOTE | 2024-12-04 09:35 | XRay Report ---
XR chest 1V portable CLINICAL HISTORY: f/u COMPARISON STUDY: Chest CT November 29, 2024. Chest radiograph December 03, 2024. FINDINGS: The lines and tubes have been removed. There is no pneumothorax. Moderate right and small l eft pleural effusions with associated airspace opacities are unchanged. Pulmonary edema persists. Car diomediastinal silhouette is stable. IMPRESSION: 1. Interval removal of lines and tubes. 2. Persistent pulmonary edema with bilateral pleural effusions, right larger left, with associated ai rspace opacities which could reflect atelectasis or pneumonia. ACT 112: Negative or not required by law. Electronically signed by: German Perkins M.D. 12/04/2024 9:34 AM
[2024-12-04] MEDS: DEXTROSE 5% 500 ML IV SCH (10:54)
--- NOTE | 2024-12-04 11:25 | Hospitalist Progress Note ---
Date of Service December 04, 2024 Assessment & Plan (1) Anemia: (2) GIB (gastrointestinal bleeding): (3) Alcohol abuse: (4) Abdominal ascites: (5) History of Clostridioides difficile infection: (6) Pneumoperitoneum: (7) Septic shock: (8) Small bowel perforation: (9) ISA (acute kidney injury): Plan This patient is a 64-year-old male with a history of alcohol use disorder, severe anemia, bedbug infestation, COPD, and SVT who does not follow regularly with a physician who presents with abdominal pain, ascites, and severe anemia. Developed into worsening abdominal pain and found to have perforated viscus. Here with septic shock and peritonitis. Status post exploratory laparotomy for bowel perforation. Was on MV with ETT. Patient tolerated well and Extubated on12/03/2024. Septic Shock/Pneumoperitoneum/ S/P exploratory laparotomy for bowel perforation - CT abdomen/pelvis (11/19) showed moderate ascites, moderate body wall edema, potential gastritis vs chronic ascites - Repeat CT(11/29): pneumoperitoneum and ascites significantly increased. Suspect bowel perforation - Underwent Exploratory laparotomy with small bowel resection with primary anastomosis for large proximal jejunal perforation on 11/29. POD #5 .Large 2 cm perforation in proximal jejunum, resected small bowel and primary anastomosis; 3 liters of feculent ascites removed Has poor prognosis. -Continue Zosyn for broad spectrum antibiotics coverage - Random cortisol : 21(12/01/2024) -Patient was under mechanical ventilation with ETT. Extubated on 12/03/2024 -Weaned off from Levophed. Patient remains on Dobutamine(LVEF:25 to 30%) -Blood culture(11/30/2023)- Shows no growth of organism after 24 hour -Peritonela culture- Many WBCs seen, no organism seen -WBC (12/03)- 17.58 (12/04)- 24.01 BL pleural effusions - R. thoracocentesis completed(11/30/24) ; 1.5 L drained; Pleural fluid culture negative; Cytology negative - Chest Xray(12/04): significant pulmonary edema with bilateral pleural effusion R>L and possible pneumonia - Echo (12/01/24): EF: 25-30%, previous echo (06/2024) largely unremarkable - Cardiology onboard -Etiology is likely ascitic fluid Severe anemia/Hemoccult positive stool - Hemoglobin has been as low as 4.1 in 06/2024 admitted for blood and iron transfusions - no gross melena or hematochezia. - No obvious bleeding on CT AP, potential anemia from chronic bedbug bites - 6 units PRBC given since admit,last infusion was on 12/02/2024, Hgb today:9.7 - Folate/B12 wnl, Iron <10 - Consider EGD/colonoscopy once stable -GI on board - CBC QAM, transfuse <8 ISA/ATN/Hypernatremia - Nephrology on board -Na >143 -Free water deficit~1.6 L -Patient pulled out NGT . Unable to give him enteral free water this time H/O clostridium Difficile - Vancomycin prophylactic given Thrombocytopenia -Could be secondary to sepsis -Fibrinogen within normal limit, unlikely to be DIC -Doppler bilateral lower extremity-negative for DVT DVT prophylaxis- SCDs only due to anemia Disposition- ICU Admission and Anticipated Discharge Date Admission Date: November 27, 2024 Supervising Physician Co-Signing Physician Notes I personally examined the patient and verified all vásquez points of history and exam, discussed case, and agree with decision making with Dr. Pastor Extubated. Still not really much meaningful HPI review of systems. Rim Turning Machine Operator and color consultant input appreciated. vitals noted Fatigued but on mask oxygen. Breathing unlabored no accessory muscle use. exam otherwise as above A/P: This patient is a 64-year-old male with a history of alcohol use disorder, severe anemia, bedbug infestation, COPD, and SVT who does not follow regularly with a physician who presents with abdominal pain, ascites, and severe anemia. Developed into worsening abdominal pain and found to have perforated viscus. Here with septic shock and peritonitis. Status post exploratory laparotomy now extubated and off pressors -ongoing abx, supportive care - appears to be slowly improving. Continue aggressive medical management and aggressive supportive care --With ongoing severe anemia but improved from previous now s/p 6 units PRBCs- continue to follow CBC, vitals, clinical status -EGD and colonoscopy when stabilized is recommended and needs thermostat machine tender for severe bedbug infestation in house otherwise as above / as per ICU and consultants Subjective Mr. Castellano was evaluated in the ICU this morning. He remains has been extubated and receiving oxygen via 2 L/min oxymask. Mr. Castellano is lethargic and did not answer questions Review of Systems Review of Systems: As per HPI Physical Exam Constitutional: + ill appearing Eyes: PERRL, conjunctivae normal, anicteric sclerae ENMT: not examined due to oxymask Neck: trachea midline, no thyromegaly Respiratory: diminished BS at R base Cardiovascular: Rate/Rhythm: regular rate and regular rhythm Extremities: + edema (1+ pretibial edema) Gastrointestinal (Abdomen): Inspection/Auscultation: + hypoactive bowel sounds (ESTRELLITA drain in place) Skin: no rashes, warm and dry Results & Data Results & Data Vital Signs (Past 12 Hours) Vital Signs Temp Pulse Pulse Resp BP Pulse Ox O2 Del Method 12/04/24 09:00 128/69 12/04/24 08:57 36.7 C 75 23 100 12/04/24 08:30 131/66 12/04/24 08:06 36.7 C 76 19 100 12/04/24 08:03 36.7 C 72 16 100 12/04/24 08:00 131/70 12/04/24 08:00 Oxymask 12/04/24 07:51 36.7 C 79 15 100 12/04/24 07:21 36.6 C 80 21 100 12/04/24 07:00 134/76 12/04/24 06:00 36.4 C L 84 24 100 12/04/24 06:00 142/73 H 12/04/24 06:00 142/73 H 12/04/24 06:00 142/73 H 12/04/24 05:48 36.4 C L 87 30 H 100 12/04/24 05:42 36.4 C L 66 17 96 12/04/24 05:30 138/74 12/04/24 05:21 36.4 C L 86 25 H 100 12/04/24 05:15 36.4 C L 85 20 100 12/04/24 05:00 36.4 C L 87 28 H 99 12/04/24 05:00 132/79 12/04/24 05:00 132/79 12/04/24 04:33 36.4 C L 84 23 100 12/04/24 04:30 128/72 12/04/24 04:30 128/72 12/04/24 04:30 128/72 12/04/24 04:21 36.4 C L 79 20 98 12/04/24 04:15 36.4 C L 74 18 100 12/04/24 04:10 71 15 98 Oxymask 12/04/24 04:09 36.4 C L 75 19 99 12/04/24 03:51 36.5 C 77 17 100 12/04/24 03:42 36.2 C L 77 22 100 12/04/24 03:30 127/61 12/04/24 03:30 127/61 12/04/24 03:00 132/64 12/04/24 02:57 36.9 C 74 18 100 12/04/24 02:54 36.9 C 12/04/24 02:30 36.8 C 86 19 100 12/04/24 02:30 131/77 12/04/24 02:06 37.0 C 74 15 100 12/04/24 01:45 36.9 C 81 25 H 93 12/04/24 01:30 130/61 12/04/24 01:30 130/61 12/04/24 01:12 37.0 C 85 35 H 98 12/04/24 01:00 127/61 12/04/24 01:00 127/61 12/04/24 01:00 37.0 C 79 19 88 L 12/04/24 00:51 37.0 C 85 19 84 L 12/04/24 00:33 37.1 C 85 22 95 12/04/24 00:30 129/62 12/04/24 00:30 129/62 12/04/24 00:09 36.9 C 106 H 25 H 97 12/04/24 00:03 37.0 C 105 H 18 91 12/04/24 00:00 132/70 12/04/24 00:00 132/70 12/03/24 23:57 37.0 C 102 H 25 H 88 L 12/03/24 23:48 37.0 C 95 12/03/24 23:35 108 H 12/03/24 23:34 100 H 26 H 99 Oxymask 12/03/24 23:33 37.0 C 104 H 24 98 12/03/24 23:30 141/71 H 12/03/24 23:30 141/71 H 12/03/24 23:30 141/71 H 12/03/24 23:24 37.0 C 102 H 25 H 89 L O2 Flow Rate 12/04/24 09:00 12/04/24 08:57 12/04/24 08:30 12/04/24 08:06 12/04/24 08:03 12/04/24 08:00 12/04/24 08:00 2 12/04/24 07:51 12/04/24 07:21 12/04/24 07:00 12/04/24 06:00 12/04/24 06:00 12/04/24 06:00 12/04/24 06:00 12/04/24 05:48 12/04/24 05:42 12/04/24 05:30 12/04/24 05:21 12/04/24 05:15 12/04/24 05:00 12/04/24 05:00 12/04/24 05:00 12/04/24 04:33 12/04/24 04:30 12/04/24 04:30 12/04/24 04:30 12/04/24 04:21 12/04/24 04:15 12/04/24 04:10 2 12/04/24 04:09 12/04/24 03:51 12/04/24 03:42 12/04/24 03:30 12/04/24 03:30 12/04/24 03:00 12/04/24 02:57 12/04/24 02:54 12/04/24 02:30 12/04/24 02:30 12/04/24 02:06 12/04/24 01:45 12/04/24 01:30 12/04/24 01:30 12/04/24 01:12 12/04/24 01:00 12/04/24 01:00 12/04/24 01:00 12/04/24 00:51 12/04/24 00:33 12/04/24 00:30 12/04/24 00:30 12/04/24 00:09 12/04/24 00:03 12/04/24 00:00 12/04/24 00:00 12/03/24 23:57 12/03/24 23:48 12/03/24 23:35 12/03/24 23:34 2 12/03/24 23:33 12/03/24 23:30 12/03/24 23:30 12/03/24 23:30 12/03/24 23:24 (1) Anemia Anemia type: unspecified type Qualified Code(s): D64.9 - Anemia, unspecified (2) GIB (gastrointestinal bleeding) GI bleed type/associated pathology: unspecified gastrointestinal hemorrhage type Qualified Code(s): K92.2 - Gastrointestinal hemorrhage, unspecified (4) Abdominal ascites Ascites type: due to alcoholic cirrhosis Qualified Code(s): K70.31 - Alcoholic cirrhosis of liver with ascites
[2024-12-04] MEDS: MAGNESIUM SULFATE / D5W 1 GM/100 ML BAG IV SCH ×2 (11:50→19:08)
[2024-12-04] MEDS: MoRPHine SULFATE 2 MG/ML CARP IV PRN (12:01)
--- NOTE | 2024-12-04 13:04 | Surgery Progress Note ---
Date of Service December 04, 2024 Assessment & Plan (1) CHF (congestive heart failure): (2) Small bowel perforation: (3) Abdominal pain: (4) Alcohol abuse: Plan 64-year-old male with PMHx of alcohol abuse, COPD and liver disease was admitted to the hospital for GI bleed. Patient was found to have pneumoperitoneum as well as ISA and was transferred to ICU for further management POD 5 from exploratory laparotomy with partial jejunal resection and and anastomosis. Persistent and increased leukocytosis, sepsis seems to be improving with improving hemodynamics. Febrile o/n with a normal temp this am. Continues on Caspofungin, Zosyn and Vancomycin. CHF with EF 25-30%, cardiology on board. H/H drifted down to 7.3/24.8 yesterday, patient is s/p 1U PRBCs and follow up H/H this am 07/25.6. Patient was extubated, on facemask, tachypnic this am. Critical care management per ICU team. May leave midline incision open to air. There are no signs of infection involving the surgical site. Surgery will follow up in the am. Admission and Anticipated Discharge Date Admission Date: November 27, 2024 Subjective Patient pulled out his NGT o/n. Was extubated, awake but lethargic. BM reported by nursing o/n without mention of flatus. Physical Exam Respiratory: Facemask in place Appears with difficulty breathing while SpO2 is 100% Gastrointestinal (Abdomen): Abdomen appears less distended than yesterday Midline manjit at incision remain intact and clean/dry without evidence for infection NGT removed by patient o/n RLQ ESTRELLITA with murky robledo tinged sediment in mostly serous fluid Sheth catheter in place, dark urine with good urine output Results & Data Vital Signs (Past 12 Hours) Vital Signs Temp Pulse Pulse Resp BP Pulse Ox O2 Del Method 12/04/24 11:00 127/68 12/04/24 10:45 36.8 C 94 H 30 H 100 12/04/24 10:00 129/83 12/04/24 10:00 36.7 C 87 20 100 12/04/24 09:39 36.7 C 87 32 H 99 12/04/24 09:00 128/69 12/04/24 08:57 36.7 C 75 23 100 12/04/24 08:30 131/66 12/04/24 08:06 36.7 C 76 19 100 12/04/24 08:03 36.7 C 72 16 100 12/04/24 08:00 131/70 12/04/24 08:00 Oxymask 12/04/24 07:51 36.7 C 79 15 100 12/04/24 07:21 36.6 C 80 21 100 12/04/24 07:00 134/76 12/04/24 06:00 36.4 C L 84 24 100 12/04/24 06:00 142/73 H 12/04/24 06:00 142/73 H 12/04/24 06:00 142/73 H 12/04/24 05:48 36.4 C L 87 30 H 100 12/04/24 05:42 36.4 C L 66 17 96 12/04/24 05:30 138/74 12/04/24 05:21 36.4 C L 86 25 H 100 12/04/24 05:15 36.4 C L 85 20 100 12/04/24 05:00 36.4 C L 87 28 H 99 12/04/24 05:00 132/79 12/04/24 05:00 132/79 12/04/24 04:33 36.4 C L 84 23 100 12/04/24 04:30 128/72 12/04/24 04:30 128/72 12/04/24 04:30 128/72 12/04/24 04:21 36.4 C L 79 20 98 12/04/24 04:15 36.4 C L 74 18 100 12/04/24 04:10 71 15 98 Oxymask 12/04/24 04:09 36.4 C L 75 19 99 12/04/24 03:51 36.5 C 77 17 100 12/04/24 03:42 36.2 C L 77 22 100 12/04/24 03:30 127/61 12/04/24 03:30 127/61 12/04/24 03:00 132/64 12/04/24 02:57 36.9 C 74 18 100 12/04/24 02:54 36.9 C 12/04/24 02:30 36.8 C 86 19 100 12/04/24 02:30 131/77 12/04/24 02:06 37.0 C 74 15 100 12/04/24 01:45 36.9 C 81 25 H 93 12/04/24 01:30 130/61 12/04/24 01:30 130/61 12/04/24 01:12 37.0 C 85 35 H 98 O2 Flow Rate 12/04/24 11:00 12/04/24 10:45 12/04/24 10:00 12/04/24 10:00 12/04/24 09:39 12/04/24 09:00 12/04/24 08:57 12/04/24 08:30 12/04/24 08:06 12/04/24 08:03 12/04/24 08:00 12/04/24 08:00 2 12/04/24 07:51 12/04/24 07:21 12/04/24 07:00 12/04/24 06:00 12/04/24 06:00 12/04/24 06:00 12/04/24 06:00 12/04/24 05:48 12/04/24 05:42 12/04/24 05:30 12/04/24 05:21 12/04/24 05:15 12/04/24 05:00 12/04/24 05:00 12/04/24 05:00 12/04/24 04:33 12/04/24 04:30 12/04/24 04:30 12/04/24 04:30 12/04/24 04:21 12/04/24 04:15 12/04/24 04:10 2 12/04/24 04:09 12/04/24 03:51 12/04/24 03:42 12/04/24 03:30 12/04/24 03:30 12/04/24 03:00 12/04/24 02:57 12/04/24 02:54 12/04/24 02:30 12/04/24 02:30 12/04/24 02:06 12/04/24 01:45 12/04/24 01:30 12/04/24 01:30 12/04/24 01:12 PG Care Time/CCT Total # of Minutes Spent Total Time Spent with Patient: Total time spent is greater than 50% in coordination of care (as documented) at patient's floor/unit and/or counseling patient: Coding Level of Care Code 47440 Post Operative Follow-Up Diagnoses CHF (congestive heart failure) I50.9 Small bowel perforation K63.1 Abdominal pain R10.84 Abdominal location: generalized Alcohol abuse F10.10 (3) Abdominal pain Abdominal location: generalized Qualified Code(s): R10.84 - Generalized abdominal pain
[2024-12-04 13:15] LABS: Anion Gap 9 (3-11); Calcium 7.5 mg/dl (8.6-10.3); Carbon Dioxide 26 mmol/L (21-32); Chloride 108 mmol/L (98-107); Sodium 143 mmol/L (136-145)
[2024-12-04 13:20] LABS: BUN Creatinine Ratio 34.2 (10-20); Blood Urea Nitrogen 38 mg/dl (6-23); Creatinine Clr Calc Pharmacy 62.4 ml/min; Glucose 179 mg/dl (70-99(Fasting))
[2024-12-04] MEDS: LORazepam 2 MG/1 ML VIAL IV PRN (13:46)
--- NOTE | 2024-12-04 16:51 | Billing Data ---
Date of Service December 04, 2024 Coding Level of Care Code 70448 SUB INP/OBS CARE
[2024-12-04] MEDS ORDERED: POTASSIUM CHLORIDE / WTR 10 MEQ/100 ML PLCT IV SCH (17:00)
[2024-12-04] MEDS: HYDROCORTISONE SOD 50 MG in SYRINGE 0 ML IV SCH (17:47)
[2024-12-05 05:10] LABS: BUN Creatinine Ratio 34.9 (10-20); Creatinine Clr Calc Pharmacy 65.3 ml/min; Magnesium 2.1 mg/dl (1.7-2.4); Potassium 2.8 mmol/L (3.5-5.1)
[2024-12-05 05:16] LABS: Hematocrit (blood only) 31.6 % (42.0-52.0); Hemoglobin 9.5 g/dl (14.0-18.0); Mean Corpuscular Hemoglobin 23.5 pg (25.0-34.0); Mean Corpuscular Hgb Conc 30.1 g/dL (32.0-36.0); Mean Corpuscular Volume 78.2 fL (80.0-100.0); Nucleated RBC # (auto) 0.13 K/uL (0.00-0.12); Nucleated RBC % (auto) 0.4 %; Platelet Count 105 K/uL (130-400); Red Blood Count 4.04 M/uL (4.70-6.10); White Blood Count 33.08 K/ul (4.8-10.8)
[2024-12-05] MEDS: POTASSIUM CHLORIDE / WTR 10 MEQ/100 ML PLCT IV SCH (06:28)
--- NOTE | 2024-12-05 06:28 | Communication Note ---
<Statement entered by Ivette Hankins, DO - 12/05/24 13:28> This information has been communicated to the operating surgical team who has begun further evaluation and assessment of the patient. Date of Service: December 05, 2024 This patient underwent an exploratory laparotomy with proximal jejunum resection with primary anastomosis on 11/29/2024. He has been in the intensive care unit since his surgery. Patient previously had a ESTRELLITA drain placed at time of surgery which was draining serous fluid. This morning I was notified by nursing staff the patient had his ESTRELLITA drain emptied for greenish colored fluid. The patient has been febrile throughout the night with a Tmax of 38.0. He is receiving antibiotics in form of intravenous Zosyn as well as oral vancomycin. He is also on intravenous caspofungin. A.m. labs this morning show white blood cell count of 33.8 (this is increased from 24.0). His hemoglobin and hematocrit are 9.5 and 31.6 (these values are stable from yesterday's levels). Platelet count is 105,000. Chemistry profile shows sodium is 145 with a potassium of 2.8. BUN and creatinine are 37 and 1.0. I discussed with the general office dispatcher service and they are in the process of repleating patient's electrolytes. The change in characteristic of patient's ESTRELLITA drain output raises concern for possible anastomotic leak or intra-abdominal abscess. I discussed with my attending physician, Dr. Slater. She notes that she will discuss with primary surgical team to determine next best course of action.
--- NOTE | 2024-12-05 06:50 | Hospitalist Progress Note ---
Date of Service December 05, 2024 Assessment & Plan (1) Anemia: (2) GIB (gastrointestinal bleeding): (3) Alcohol abuse: (4) Abdominal ascites: (5) History of Clostridioides difficile infection: (6) Pneumoperitoneum: (7) Septic shock: (8) Small bowel perforation: (9) ISA (acute kidney injury): Plan This patient is a 64-year-old male with a history of alcohol use disorder, severe anemia, bedbug infestation, COPD, and SVT who does not follow regularly with a physician who presents with abdominal pain, ascites, and severe anemia. He developed into worsening abdominal pain and found to have perforated viscus on 11/29/24. This was complicated by septic shock and peritonitis. Status post exploratory laparotomy with small bowel resection and primary anastomosis of large proximal jejunum for bowel perforation. He remained intubated and has a ESTRELLITA tube. Was on MV with ETT. Patient tolerated well and extubated on 12/03/2024. Septic Shock/Pneumoperitoneum/ S/P exploratory laparotomy for bowel perforation - CT abdomen/pelvis (11/19) showed moderate ascites, moderate body wall edema, potential gastritis vs chronic ascites - Repeat CT (11/29): pneumoperitoneum and ascites significantly increased. Suspect bowel perforation - Underwent exploratory laparotomy with small bowel resection with primary anastomosis for large proximal jejunal perforation on 11/29. POD #5 Large 2 cm perforation in proximal jejunum, resected small bowel and primary anastomosis; 3 liters of feculent ascites removed. Has poor prognosis. - Continue Piperacillin-Tazobactam for broad spectrum antibiotics coverage - Random cortisol : 21 (12/01/2024) - Patient was under mechanical ventilation with ETT. Extubated on 12/03/2024 - Weaned off Norepinephrine - Patient discontinued Dobutamine (LVEF:25 to 30%) on 12/04/2024 - Blood culture (11/30/2023): Shows no growth of organism after 24 hour - Peritoneal culture- Many WBCs seen, no organism seen - WBC (12/03)- 17.58 (12/04)- 24.01----33.8 - Repeat CT Abd/Pelvic (12/05/24) indicated ascititc fluid, small pneumoperitoneum, and a possible anastomotic leak Drainage from ESTRELLITA drain - Serosanguineous with green colored drainage since (12/04) - Plan for CT AP repeat - Surgery consulted and following - WBC elevated from 24 to 33.8 during evaluation BL pleural effusions - R. thoracocentesis completed (11/30/24); 1.5 L drained; Pleural fluid culture negative; Cytology negative - Chest Xray(12/04): significant pulmonary edema with bilateral pleural effusion R>L and possible pneumonia - Echo (12/01/24): EF: 25-30%, previous echo (06/2024) largely unremarkable - Cardiology onboard - Etiology is likely ascitic fluid Severe anemia/Hemoccult positive stool - Hemoglobin has been as low as 4.1 in 06/2024 admitted for blood and iron t ransfusions - No gross melena or hematochezia. - No obvious bleeding on CT AP, potential anemia from chronic bedbug bites - 6 units PRBC given since admit,last infusion was on 12/02/2024, Hgb today: 9.7--9.5 - Folate/B12 wnl, Iron <10 - Consider EGD and colonoscopy once stable (GI on board) - CBC QAM, transfuse <8 - Needs buffing line set up worker for severe bedbug infestation in house ISA/ATN/Hypernatremia resolved - Nephrology on board -- Requested D5 12/05/24 - Na >143---145 - Cr: 2.88---1.06 - Free water deficit~1.6 L - Patient pulled out NGT. Unable to give him enteral free water this time. Soft hand restraints in place. H/O clostridium Difficile - Vancomycin prophylactic given -- Held for now (12/05/24) Thrombocytopenia - Could be secondary to sepsis, Plt: 105 today (as low as 42 before) - Fibrinogen within normal limit, unlikely to be DIC - Doppler bilateral lower extremity-negative for DVT Hypokalemia: - Ongoing KCL supplementation. 20 MeQ in 1000 ml; 60 ml/ hour. DVT prophylaxis- SCDs only due to anemia Disposition- ICU Admission and Anticipated Discharge Date Admission Date: November 27, 2024 Supervising Physician Co-Signing Physician Notes Attending Physician Supervision Note: I independently interviewed and examined the patient and verified the vásquez history and physical, reviewed labs and image studies and agree with findings and care plan noted above. Restless in bed. Sister at bedside. Due to bilious ESTRELLITA drainage - CT abdomen done today. Patient unable to provide any history. On oxymask. Restless, No resp distress. RRR, CTA, no BS, abdomen distended. Sheth in place. A/P: This patient is a 64-year-old male with a history of alcohol use disorder, severe anemia, bedbug infestation, COPD, and SVT who does not follow regularly with a physician who presents with abdominal pain, ascites, and severe anemia. Developed into worsening abdominal pain and found to have perforated viscus. Here with septic shock and peritonitis. Status post exploratory laparotomy now extubated and off pressors Septic shock/peritonitis - now with ileus. Off pressors. -ESTRELLITA drainage bilious - CT abdomen with post-op changes/ileus. -ID consult placed. -Palliative care consulted. -weaning hydrocortisone. Delirum - supportive care. High risk of alc withdrawal. Prn BZD. Thiamine +. New onset - HFrEF - 25%. Per cardio- secondary to septic shock. Bilateral pleural effusion - s/p thoracentesis 11/30. Effusion persistent on today's imaging - unable to do repeat thoracentesis due to patient being restless. Presumed copd - continue bronchodilators. Severe anemia on admission - s/p 6 U PRBC. h/h stable. ISA on CKD - per nephro HyperNa- resolved otherwise as above / as per ICU and consultants Subjective Mr. Castellano was seen at bedside this morning. He was unresponsive and unable to give an HPI. Nursing indicated his ESTRELLITA drain was producing a greenish fluid with a 10K WBC bump with a max temperature overnight of 38 C. Surgery is aware and following. His next of kin is his sister who was contacted over the weekend indicating she did not want escalating treatment, but did not define the parameters of this. Palliative was consulted and is following - she will be contacted - to determine continued care vs. withdrawal of care vs. comfort measure, and the parameters of no escalation of treatment. Possibly need to correct the caspofungin dosage due to liver insufficiency. He has not been given PO vancomycin as he is non- responsive and is held. Met his sister at bedside this afternoon (12/05/24) and updated her on the medical expectations and management. She has also been given the contact information for Palliative. She expressed understanding and will ask questions as needed. She traveled from the [facility] and will be returning 12/06/24. She provided social history indicating that Mr. Castellano has been staying with his friend Elmer for the past few years, and he struggled with stable housing and maintaining careers. She also indicated that he used alcohol and tobacco excessively throughout his life, and does not know the last time he had preventative/primary health care. Review of Systems Review of Systems: Per HPI Physical Exam Constitutional: Patient was seen lying in bed Eyes: Eyes were closed for the entire examination ENMT: Oxygen mask in place. Neck: Trachea midline. No thyromegaly. Respiratory: Lungs are clear to ascultation in the anterior lung garcia Cardiovascular: Regular rate and rhythm. No mumurs, rubs, or gallops. S1 and S2 appreciated. Gastrointestinal (Abdomen): Normal bowel sounds. ESTRELLITA tube in place draining a serosanguinis/greenish fluid. Musculoskeletal: Right forearm size > Left form arm size. Soft bilaterally. Hands are in soft braces and positioned on the abdomen. Forelegs wrapped in compression stockings. Feet are cool to the touch. Results & Data Results & Data Vital Signs (Past 12 Hours) Vital Signs Temp Pulse Resp BP Pulse Ox O2 Del Method O2 Flow Rate 12/05/24 05:03 37.9 C H 107 H 22 96 12/05/24 05:00 133/69 12/05/24 05:00 133/69 12/05/24 04:42 38.0 C H 113 H 22 95 12/05/24 04:12 38.0 C H 133 H 22 96 12/05/24 04:00 139/81 12/05/24 03:51 38.0 C H 137 H 22 95 12/05/24 03:11 37.7 C H 137 H 22 94 12/05/24 02:29 37.3 C 116 H 22 94 12/05/24 02:00 147/87 H 12/05/24 02:00 147/87 H 12/05/24 01:44 37.1 C 115 H 22 94 12/05/24 01:02 37.0 C 108 H 22 87 L 12/05/24 01:00 151/79 H 12/05/24 01:00 151/79 H 12/05/24 01:00 151/79 H 12/05/24 01:00 151/79 H 12/05/24 01:00 151/79 H 12/05/24 00:50 36.9 C 108 H 22 90 12/05/24 00:06 36.9 C 104 H 22 94 12/05/24 00:01 140/81 12/05/24 00:01 140/81 12/05/24 00:01 140/81 12/04/24 23:57 36.8 C 105 H 22 99 12/04/24 23:49 102 H 12/04/24 23:00 36.6 C 103 H 29 H 99 12/04/24 23:00 145/78 H 12/04/24 23:00 145/78 H 12/04/24 23:00 145/78 H 12/04/24 22:12 36.5 C 99 H 28 H 98 12/04/24 22:00 132/86 12/04/24 21:54 36.4 C L 97 H 26 H 100 12/04/24 21:09 36.4 C L 92 H 32 H 97 12/04/24 21:00 133/69 12/04/24 21:00 133/69 12/04/24 20:57 36.4 C L 94 H 28 H 97 12/04/24 20:09 36.3 C L 92 H 25 H 100 12/04/24 20:00 Oxymask 2 12/04/24 20:00 121/72 12/04/24 20:00 121/72 12/04/24 20:00 121/72 12/04/24 19:48 36.3 C L 83 23 98 12/04/24 19:03 36.3 C L 87 28 H 98 12/04/24 19:00 120/64 12/04/24 19:00 120/64 12/04/24 19:00 120/64 12/04/24 19:00 120/64 12/04/24 18:51 36.3 C L 83 27 H 97 (1) Anemia Anemia type: unspecified type Qualified Code(s): D64.9 - Anemia, unspecified (2) GIB (gastrointestinal bleeding) GI bleed type/associated pathology: unspecified gastrointestinal hemorrhage type Qualified Code(s): K92.2 - Gastrointestinal hemorrhage, unspecified (4) Abdominal ascites Ascites type: due to alcoholic cirrhosis Qualified Code(s): K70.31 - Alcoholic cirrhosis of liver with ascites
--- NOTE | 2024-12-05 09:35 | Nephrology Progress Note ---
Date of Service December 05, 2024 Assessment & Plan (1) ISA (acute kidney injury): (2) Hypernatremia: Plan 64 year old M white male admitted on 11/27/24 due to weakness and abdominal pain. In ER SBP 70's, Hgb 5.8 and guaiac + stool, Cr 0.93. He was transfused [address] A/P without IV contrast revealed ascites and pneumoperitoneum. No hydronephrosis/stone or renal mass. Exploratory laparotomy 11/29/24 revealed perforated jejunum s/p proximal jejunal resection w/ primary side to side anastomosis. has PMH of alcohol use disorder, COPD and SVT. Kidney function normal but has multiple electrolyte abnormality including hypokalemia and mild hyponatremia with n.p.o., poor p.o. intake. --recommend starting on D5W @75 ml/h for hypernatremia with free wtaer deficit while NPO --Has been getting IV potassium replacement. Admission and Anticipated Discharge Date Admission Date: November 27, 2024 Marylou Epps was seen and evaluated this morning. He was noted to be lethargic, did not answer any question. Has been NPO. Lab was notable for mild hyponatremia, sodium 145 and potassium was 2.8. Kidney function normal. Urine output decent, Sheth catheter dark-colored urine. Review of Systems Review of Systems: Detailed review of system was not possible due to reduced responsiveness. Physical Exam Constitutional: WD/WN, vitals as above Respiratory: Auscultation: lungs clear to auscultation bilaterally Cardiovascular: Rate/Rhythm: regular rate and regular rhythm Heart Sounds: normal S1 and normal S2 Extremities: no edema Results & Data Vital Signs (Past 12 Hours) Vital Signs Temp Pulse Resp BP Pulse Ox 12/05/24 05:03 37.9 C H 107 H 22 96 12/05/24 05:00 133/69 12/05/24 05:00 133/69 12/05/24 04:42 38.0 C H 113 H 22 95 12/05/24 04:12 38.0 C H 133 H 22 96 12/05/24 04:00 139/81 12/05/24 03:51 38.0 C H 137 H 22 95 12/05/24 03:11 37.7 C H 137 H 22 94 12/05/24 02:29 37.3 C 116 H 22 94 12/05/24 02:00 147/87 H 12/05/24 02:00 147/87 H 12/05/24 01:44 37.1 C 115 H 22 94 12/05/24 01:02 37.0 C 108 H 22 87 L 12/05/24 01:00 151/79 H 12/05/24 01:00 151/79 H 12/05/24 01:00 151/79 H 12/05/24 01:00 151/79 H 12/05/24 01:00 151/79 H 12/05/24 00:50 36.9 C 108 H 22 90 12/05/24 00:06 36.9 C 104 H 22 94 12/05/24 00:01 140/81 12/05/24 00:01 140/81 12/05/24 00:01 140/81 12/04/24 23:57 36.8 C 105 H 22 99 12/04/24 23:49 102 H 12/04/24 23:00 36.6 C 103 H 29 H 99 12/04/24 23:00 145/78 H 12/04/24 23:00 145/78 H 12/04/24 23:00 145/78 H 12/04/24 22:12 36.5 C 99 H 28 H 98 12/04/24 22:00 132/86 12/04/24 21:54 36.4 C L 97 H 26 H 100 PG Care Time/CCT Total # of Minutes Spent Total Time Spent with Patient: Total time spent is greater than 50% in coordination of care (as documented) at patient's floor/unit and/or counseling patient: Coding Level of Care Code 08213 SUB INP/OBS CARE 2/35MIN Diagnoses ISA (acute kidney injury) N17.9 Hypernatremia E87.0
--- NOTE | 2024-12-05 11:33 | Surgery Progress Note ---
Date of Service December 05, 2024 Assessment & Plan (1) Small bowel perforation: Plan: POD # 6 ex lap small bowel resection with primary anastomosis for large proximal jejunal perforation now extubated off pressors febrile tmax 38 overnight leukocytosis of 33K today ritesh drain with greenish/light brown output overnight, more serosanguineous after ritesh drain stripped multiple times, abdomen is soft nondistended, no rigidity or peritonitis but patient unable to verbalize if having pain Plan: will order CT scan abd/pelvis with IV contrast to eval given elevated wbc to 33 (18k two days ago) and now febrile and tachycardic. Could be more intra- abdominal abscess vs leak as drain is right near anastomosis and no ancelmo bile on stripping ritesh drain multiple times. continue IV abx and drain to bulb suction con't abx continue benito drain to bulb suction continue ICU management await palliative consult and discussion with sister on goals of care. Discussed with Dr. Caal who agrees with above will evaluate patient later today. Admission and Anticipated Discharge Date Admission Date: November 27, 2024 Subjective unable to obtain as patient lethargic Updated by nurse on overnight events, ritesh drain looked more green/light brown output last evening tachycardic febrile not on pressors and on IV zosyn and capsofungin palliative care consulted for goals of care, sister Marcy Buitrago to be contacted today for palliative consult and goals of care Physical Exam Constitutional: + ill appearing, + frail appearing and + lethargic; not in distress and not diaphoretic Respiratory: normal respiratory effort; no respiratory distress, no labored breathing and no retractions oxymask present Cardiovascular: Rate/Rhythm: + tachycardic Gastrointestinal (Abdomen): Inspection/Auscultation: abdomen normal to inspection, + abdominal surgical incision (c/d/i with manjit) and + abdominal surgical drain present (greenish tinged tubing with serosanguineous slight green tinge); abdomen not distended Percussion/Palpation: abdomen soft; abdomen nontender, no guarding, abdomen not rigid and abdomen not firm RITESH drain was striped multiple times, more serosanguineous with slight green tinge after striping Psychiatric: Orientation: + not alert and + not oriented x 3 Results & Data Vital Signs (Past 12 Hours) Vital Signs Temp Pulse Resp BP Pulse Ox 12/05/24 08:00 103 H 12/05/24 05:03 37.9 C H 107 H 22 96 12/05/24 05:00 133/69 12/05/24 05:00 133/69 12/05/24 04:42 38.0 C H 113 H 22 95 12/05/24 04:12 38.0 C H 133 H 22 96 12/05/24 04:00 139/81 12/05/24 03:51 38.0 C H 137 H 22 95 12/05/24 03:11 37.7 C H 137 H 22 94 12/05/24 02:29 37.3 C 116 H 22 94 12/05/24 02:00 147/87 H 12/05/24 02:00 147/87 H 12/05/24 01:44 37.1 C 115 H 22 94 12/05/24 01:02 37.0 C 108 H 22 87 L 12/05/24 01:00 151/79 H 12/05/24 01:00 151/79 H 12/05/24 01:00 151/79 H 12/05/24 01:00 151/79 H 12/05/24 01:00 151/79 H 12/05/24 00:50 36.9 C 108 H 22 90 12/05/24 00:06 36.9 C 104 H 22 94 12/05/24 00:01 140/81 12/05/24 00:01 140/81 12/05/24 00:01 140/81 12/04/24 23:57 36.8 C 105 H 22 99 12/04/24 23:49 102 H Laboratory Results 12/05/24 12/05/24 12/04/24 Range/Units 06:07 04:37 23:19 WBC 33.08 H* (4.8-10.8) K/ul RBC 4.04 L (4.70-6.10) M/uL Hgb 9.5 L (14.0-18.0) g/dl Hct 31.6 L (42.0-52.0) % MCV 78.2 L (80.0-100.0) fL MCH 23.5 L (25.0-34.0) pg MCHC 30.1 L (32.0-36.0) g/dL Plt Count 105 L D (130-400) K/uL Absolute Nucleated RBC 0.13 H (0.00-0.12) K/uL Nucleated RBC % (auto) 0.4 % Sodium 145 (136-145) mmol/L Potassium 2.8 L Chloride 107 (98-107) mmol/L Carbon Dioxide 29 (21-32) mmol/L Anion Gap 9 (3-11) BUN 37 H (6-23) mg/dl Creatinine 1.06 (0.6-1.4) mg/dl Est Cr Clr Drug Dosing 65.3 ml/min eGFR 79.35 BUN/Creatinine Ratio 34.9 H (10-20) Glucose 163 H (70-99(Fasting)) mg/dl POC Glucose 158 H 170 H (70-99) mg/dl Calcium 8.0 L (8.6-10.3) mg/dl Magnesium 2.1 (1.7-2.4) mg/dl 12/04/24 12/04/24 12/04/24 Range/Units 17:53 15:17 14:28 WBC (4.8-10.8) K/ul RBC (4.70-6.10) M/uL Hgb (14.0-18.0) g/dl Hct (42.0-52.0) % MCV (80.0-100.0) fL MCH (25.0-34.0) pg MCHC (32.0-36.0) g/dL Plt Count (130-400) K/uL Absolute Nucleated RBC (0.00-0.12) K/uL Nucleated RBC % (auto) % Sodium (136-145) mmol/L Potassium 2.9 L D TNP Chloride (98-107) mmol/L Carbon Dioxide (21-32) mmol/L Anion Gap (3-11) BUN (6-23) mg/dl Creatinine (0.6-1.4) mg/dl Est Cr Clr Drug Dosing ml/min eGFR BUN/Creatinine Ratio (10-20) Glucose (70-99(Fasting)) mg/dl POC Glucose 171 H (70-99) mg/dl Calcium (8.6-10.3) mg/dl Magnesium (1.7-2.4) mg/dl 12/04/24 12/04/24 12/04/24 Range/Units 13:32 12:51 11:45 WBC (4.8-10.8) K/ul RBC (4.70-6.10) M/uL Hgb (14.0-18.0) g/dl Hct (42.0-52.0) % MCV (80.0-100.0) fL MCH (25.0-34.0) pg MCHC (32.0-36.0) g/dL Plt Count (130-400) K/uL Absolute Nucleated RBC (0.00-0.12) K/uL Nucleated RBC % (auto) % Sodium 143 (136-145) mmol/L Potassium Cancelled TNP Chloride 108 H (98-107) mmol/L Carbon Dioxide 26 (21-32) mmol/L Anion Gap 9 (3-11) BUN 38 H (6-23) mg/dl Creatinine 1.11 (0.6-1.4) mg/dl Est Cr Clr Drug Dosing 62.4 ml/min eGFR 75.08 BUN/Creatinine Ratio 34.2 H (10-20) Glucose 179 H (70-99(Fasting)) mg/dl POC Glucose 157 H (70-99) mg/dl Calcium 7.5 L (8.6-10.3) mg/dl Magnesium (1.7-2.4) mg/dl
[2024-12-05] MEDS: OPTIRAY 320 100ml IV ONE (12:57)
[2024-12-05] MEDS: DEXTROSE 5% 500 ML IV SCH (13:29)
--- NOTE | 2024-12-05 13:54 | CT Scan Report ---
ABDOMEN AND PELVIS CT WITH IV CONTRAST CT DOSE: 1278.62 mGy.cm HISTORY: febrile, wbc 33k, eval intra-abd abscess vs leak TECHNIQUE: Multiaxial CT images of the abdomen and pelvis were performed following the IV administrat ion of 93 cc of Optiray, A dose lowering technique was utilized adhering to the principles of ALARA. COMPARISON STUDY: 11/29/2024 FINDINGS: There are moderate bilateral pleural effusions with adjacent lung base consolidation, stabl e. ABDOMEN: Stable lobular contour of the liver, normal variation versus early cirrhosis.. No focal live r abnormality seen. There is a possible small amount of gallbladder sludge. No evidence of acute chol ecystitis. Spleen, pancreas, and adrenal glands are unremarkable. Kidneys show no hydronephrosis or c alculi. There is an interval well positioned jejunostomy tube. There are scattered atherosclerotic ca lcifications. No abdominal aortic aneurysm. Pelvis: Sheth catheter is present. Urinary bladder is decompressed. There is interval partial small b owel resection with anastomosis at the proximal jejunum. There is a small to moderate amount of diffu se free fluid in the abdomen and pelvis with thin enhancing rim at the fluid adjacent to the inferior right liver and in the right paracolic gutter. There is a small amount of free air. There are multip le dilated small bowel loops at the central and upper abdomen measuring up to 4 cm. No colonic disten tion. Osseous structures: No acute osseous findings. IMPRESSION: 1. Small to moderate amount of free fluid at the abdomen and pelvis with thin enhancing rim at the fl uid adjacent to the liver and in the right paracolic gutter, could represent infected fluid. There is a small amount of free air which could be due to the prior surgery. However, anastomotic leak is als o a possibility. 2. Mildly dilated small bowel loops at the central and upper abdomen, ileus versus early small bowel obstruction. 3. Otherwise as described. ACT 112: Positive. There are findings on this exam that require communication between the performing entity and the patient following Patient Test Result Information Act ([place] Act 112) guidelines. The above report was generated using voice recognition software. It may contain grammatical, syntax o r spelling errors. Electronically signed by: Sravan Garcia M.D. 12/05/2024 1:52 PM
--- NOTE | 2024-12-05 15:05 | Critical Care Progress Note ---
Date of Service December 05, 2024 Assessment & Plan (1) Pneumoperitoneum: (2) History of Clostridioides difficile infection: (3) Abdominal ascites: (4) Pleural effusion: (5) GIB (gastrointestinal bleeding): (6) PSVT (paroxysmal supraventricular tachycardia): (7) Aspiration into lower respiratory tract: (8) Bed bug bite: (9) Alcohol abuse: (10) Transaminitis: (11) ISA (acute kidney injury): (12) COPD (chronic obstructive pulmonary disease): (13) High anion gap metabolic acidosis: (14) CHF (congestive heart failure): Plan Reason Critically Ill: 64-year-old male was admitted to the hospital for GI bleed. Patient was found to have pneumoperitoneum as well as ISA and was transferred to ICU for further management Past medical history: Alcohol abuse, COPD, ascites 24-hour events: Patient developed increasing encephalopathy. ESTRELLITA drain changed to is somewhat bilious. Surgery obtained repeat CT scan which demonstrated a fluid collection with an air-fluid level possibly postoperative but cannot exclude infection. Infectious disease consultation has been requested. Palliative care meeting with family. Recommendations: Neuro -encephalopathy likely secondary to underlying medical issues. At risk for alcohol withdrawal. Holding benzodiazepines currently. Cardiac -septic shock now off vasopressor agents. Remains tachycardic. Cardiology consultation noted. Depressed EF with moderate to severe global hypokinesis of unclear etiology although alcoholic cardiomyopathy would be on the differential. Appears adequately fluid resuscitated currently Respiratory - Liberated from the ventilator but now with poor pulmonary toilet. According to the patient's sister, the patient is not going to participate in activities designed to improve his functional status to include deep breathing, exercising, or adhering to a medical regiment. She definitely states that he does not want to be reintubated and would not want tracheostomy. Would not want PEG tube. Bilateral pleural effusions noted on CT of the abdomen and pelvis today. Could consider thoracentesis but the patient is not able to be compliant with sitting still for invasive procedures. Continue to wean oxygen as tolerated. No indication for steroids. Continue bronchodilators as needed for presumed COPD GI -jejunal perforation status post abdominal surgery. Discussed extensively with surgical PA and reviewed imaging. Fluid collection certainly concerning for potential infectious etiology but surgery does not feel reexploration warranted currently. The patient is at high risk for surgical complications. These were discussed extensively with the family at bedside. See comments below. Keep n.p.o. for now. See below regarding antibiotics RENAL/LYTES -acute on chronic kidney injury. Creatinine now improving and back to baseline. Electrolytes and acid-base status are acceptable. Appears mildly fluid overloaded. Judicious diuretics as tolerated. Additional management per nephrology. -Sheth catheter in place ENDO - glycemic control per protocol. Random cortisol appropriate HEME -marked leukocytosis today. See comments under ID. Hemoglobin and hematocrit are stable and platelet count is improving. Continue to follow currently ID -secondary peritonitis secondary to bowel perforation. Currently on broad- spectrum antibiotics with antifungals added. Day #6 Zosyn after 3 days of Flagyl. Day #4 caspofungin. Given use of antifungals, will obtain infectious disease consultation. Discussed extensively with the family. Ideally would like to sample the fluid collection which may require additional sedation. Family is unclear whether they want to pursue additional interventions at this point in time and have taken it under advisement. They are meeting with palliative care today to discuss options moving forward. --Prophylaxis VTE: IPC GI: Pantoprazole Lines: Peripheral, positive Sheth Diet: N.p.o. Patient is critically ill with multiorgan system dysfunction. Total of 57 mi nutes in critical care time was spent in evaluation management and coordination of care for this patient including end-of-life discussions with patient's family. The patient reportedly had a longstanding history of avoiding medical care and medical noncompliance. Family is quite sure he would not participate in rehab necessary to recover from this acute illness. Advised them that in light of that, it may make sense to not pursue aggressive interventions if the patient is not going to be willing to participate in care leading to his recovery. They confirm DNR/DNI status and no ACLS in the event of cardiopulmonary arrest. They will discuss amongst themselves as well as with palliative care and make a decision regarding future care. Admission and Anticipated Discharge Date Admission Date: November 27, 2024 Subjective Patient seen and examined. EMR reviewed. Discussed with surgery at bedside as well as with the off going automotive brake specialist and overnight critical care AMITA. Discussed on multidisciplinary rounds and with bedside critical care nurse. The patient is obtunded and encephalopathic. Review of Systems Review of Systems: Unobtainable due to reduced consciousness Physical Exam Constitutional: + ill appearing and + disheveled Neck: trachea midline, no thyromegaly Respiratory: no respiratory distress Auscultation: + rhonchi Cardiovascular: RRR, no murmur, no edema Gastrointestinal (Abdomen): normal bowel sounds, soft, nontender, no hepatosplenomegaly Musculoskeletal: Extremities: extremities normal to inspection Skin: no rashes, warm and dry Neurologic: Obtunded Lymphatic: no cervical lymphadenopathy Results & Data Results & Data Vital Signs (Past 12 Hours) Vital Signs Temp Pulse Resp BP Pulse Ox 12/05/24 08:00 103 H 12/05/24 05:03 37.9 C H 107 H 22 96 12/05/24 05:00 133/69 12/05/24 05:00 133/69 12/05/24 04:42 38.0 C H 113 H 22 95 12/05/24 04:12 38.0 C H 133 H 22 96 12/05/24 04:00 139/81 12/05/24 03:51 38.0 C H 137 H 22 95 12/05/24 03:11 37.7 C H 137 H 22 94 Critical Care Results & Data Vital Signs (Past 12 Hours) Vital Signs Temp Pulse Resp BP Pulse Ox 12/05/24 08:00 103 H 12/05/24 05:03 37.9 C H 107 H 22 96 12/05/24 05:00 133/69 12/05/24 05:00 133/69 12/05/24 04:42 38.0 C H 113 H 22 95 12/05/24 04:12 38.0 C H 133 H 22 96 12/05/24 04:00 139/81 12/05/24 03:51 38.0 C H 137 H 22 95 Lab & Micro Results (Past 24 Hours) RBC 4.04 M/uL (4.70-6.10) L 12/05/24 WBC 33.08 K/ul (4.8-10.8) H* 12/05/24 Hgb 9.5 g/dl (14.0-18.0) L 12/05/24 Hct 31.6 % (42.0-52.0) L 12/05/24 MCV 78.2 fL (80.0-100.0) L 12/05/24 MCH 23.5 pg (25.0-34.0) L 12/05/24 MCHC 30.1 g/dL (32.0-36.0) L 12/05/24 Plt Count 105 K/uL (130-400) L 12/05/24 Nucleated Red Blood Cells % (auto) 0.4 % 12/05 Nucleated RBC Absolute Count (auto) 0.13 K/uL (0.00-0.12) H 12/05/24 Na 145 mmol/L (136-145) 12/05/24 K 2.8 mmol/L (3.5-5.1) L 12/05/24 Cl 107 mmol/L (98-107) 12/05/24 CO2 29 mmol/L (21-32) 12/05/24 Anion Gap 9 (3-11) 12/05/24 BUN 37 mg/dl (6-23) H 12/05/24 Creatinine 1.06 mg/dl (0.6-1.4) 12/05/24 BUN/Creatinine Ratio 34.9 (10-20) H 12/05/24 Glu 163 mg/dl (70-99(Fasting)) H 12/05/24 Ca 8.0 mg/dl (8.6-10.3) L 12/05/24 Mg 2.1 mg/dl (1.7-2.4) 12/05/24 04:37 Calcium Level 8.0 mg/dl (8.6-10.3) L 12/05/24 04:37 Microbiology 11/30/24 09:57 Aerobic Blood Culture - Final Blood No growth in Aerobic bottle after 5 days. Anaerobic Blood Culture - Final No growth in Anaerobic bottle after 5 days. 11/30/24 09:48 Aerobic Blood Culture - Final Blood No growth in Aerobic bottle after 5 days. Anaerobic Blood Culture - Final No growth in Anaerobic bottle after 5 days. 11/30/24 18:20 Gram Stain - Final Pleural Fluid Aerobic and Anaerobic Culture - Final No growth Diagnostic Findings (Past 24 Hours) Abdomen/Pelvis CT 12/05/24 11:[address] WITH IV CONTRAST CT DOSE: 1278.62 mGy.cm HISTORY: febrile, wbc 33k, eval intra-abd abscess vs leak TECHNIQUE: Multiaxial CT images of the abdomen and pelvis were performed following the IV administration of 93 cc of Optiray, A dose lowering technique was utilized adhering to the principles of ALARA. COMPARISON STUDY: 11/29/2024 FINDINGS: There are moderate bilateral pleural effusions with adjacent lung base consolidation, stable. ABDOMEN: Stable lobular contour of the liver, normal variation versus early cirrhosis.. No focal liver abnormality seen. There is a possible small amount of gallbladder sludge. No evidence of acute cholecystitis. Spleen, pancreas, and adrenal glands are unremarkable. Kidneys show no hydronephrosis or calculi. There is an interval well positioned jejunostomy tube. There are scattered atherosclerotic calcifications. No abdominal aortic aneurysm. Pelvis: Sheth catheter is present. Urinary bladder is decompressed. There is interval partial small bowel resection with anastomosis at the proximal jejunum. There is a small to moderate amount of diffuse free fluid in the abdomen and pelvis with thin enhancing rim at the fluid adjacent to the inferior right liver and in the right paracolic gutter. There is a small amount of free air. There are multiple dilated small bowel loops at the central and upper abdomen measuring up to 4 cm. No colonic distention. Osseous structures: No acute osseous findings. IMPRESSION: 1. Small to moderate amount of free fluid at the abdomen and pelvis with thin enhancing rim at the fluid adjacent to the liver and in the right paracolic gutter, could represent infected fluid. There is a small amount of free air which could be due to the prior surgery. However, anastomotic leak is also a possibility. 2. Mildly dilated small bowel loops at the central and upper abdomen, ileus versus early small bowel obstruction. 3. Otherwise as described. ACT 112: Positive. There are findings on this exam that require communication between the performing entity and the patient following Patient Test Result Information Act ([place] Act 112) guidelines. The above report was generated using voice recognition software. It may contain grammatical, syntax or spelling errors. Electronically signed by: Sravan Garcia M.D. 12/05/2024 1:52 PM I & O Totals 24 Hours 12/04/24 12/05/24 12/06/24 06:59 06:59 06:59 Intake Total 1223.354 / 7932.442 3086.320 / 2701.320 760 / 760 Output Total 3711 / 3711 3251 / 3251 Balance -2487.646 / -2487.646 -549.680 / -549.680 760 / 760 Cumulative 11/27/24 13:27 thru 12/05/24 13:31 Intake Total 01722.697 Output Total 13964 Balance 6307.697 RT Ventilator Mngmt (Last Documented) Ventilator Ordered Settings Ventilator Support Mode Assist Control 12/03/24 16:00 Respiratory Rate 22 12/05/24 05:03 Ventilator Tidal Volume 410 12/03/24 16:00 Setting Minute Ventilation 8 12/03/24 12:03 Positive End Expiratory 5 12/03/24 16:00 Pressure Fraction of Inspired Oxygen 30 12/03/24 20:04 Peak Inspiratory Flow 47 12/01/24 15:48 Machine Comment fio2 titrated to 45% 11/29/24 23:38 Ventilator - PT Measurements Respiratory Rate 22 Exhaled Tidal Volume 412 Minute Ventilation 8 Peak Inspiratory Airway 22 Pressure Plateau Pressure 12 Respiratory Cycle Inspiratory: 1:3.3 Expiratory Ratio Inspiratory Phase Time 0.7 End-Tidal CO2 32 Static Lung Compliance 58.86 Dynamic Lung Compliance 24.24 Normal Static Lung Compliance 46.00 Patient Measurements Comment RR turned to 20 after [facility] Coding Level of Care Code 95926 CRITICAL CARE 1ST 30-74M Diagnoses Pneumoperitoneum K66.8 History of Clostridioides difficile infection Z86.19 Abdominal ascites K70.31 Ascites type: due to alcoholic cirrhosis Pleural effusion J90 GIB (gastrointestinal bleeding) K92.2 GI bleed type/associated pathology: unspecified gastrointestinal hemorrhage type PSVT (paroxysmal supraventricular tachycardia) I47.10 Aspiration into lower respiratory tract T17.800A Bed bug bite W57.XXXA Encounter type: initial encounter Alcohol abuse F10.10 Transaminitis R74.01 ISA (acute kidney injury) N17.9 COPD (chronic obstructive pulmonary disease) J44.9 High anion gap metabolic acidosis E87.29 CHF (congestive heart failure) I50.9 (3) Abdominal ascites Ascites type: due to alcoholic cirrhosis Qualified Code(s): K70.31 - Alcoholic cirrhosis of liver with ascites (5) GIB (gastrointestinal bleeding) GI bleed type/associated pathology: unspecified gastrointestinal hemorrhage type Qualified Code(s): K92.2 - Gastrointestinal hemorrhage, unspecified (8) Bed bug bite Encounter type: initial encounter Qualified Code(s): W57.XXXA - Bitten or stung by nonvenomous insect and other nonvenomous arthropods, initial encounter
--- NOTE | 2024-12-05 18:43 | Palliative Care Consultation ---
Date of Consultation December 05, 2024 Assessment & Plan (1) Altered mental status: (2) Weakness generalized: (3) Discussion about advance care planning held with family member: A 30 min ACP discussion was held with sister of Mr Castellano. She and have to head back to [place] tomorrow afternoon, and we agreed to meet in person, at bedside tomorrow at 10am. After discussion tonight and review of his overall situation, his known preferences and prior expressed wishes, we agreed on the following plan: continue current care for another 48hr, NO escalation of care beyond current. Code status reaffirmed DNR/DNI. If he has any acute worsening, transition to comfort care and assure relief of suffering. We agreed I would write some PRN orders for symptom mgt needs, to be used if needed. Nursing and medical teams updated. (4) Palliative care by specialist: Introduced Palliative Medicine and explained our role in patient's care. Patient and/or family were receptive to palliative services for goals of care discussions. Reviewed we are different from hospice, a home health nurse visiti service. (5) MSOF (multiple systems organ failure): Plan As above Thank you for allowing us to participate in the ongoing care of this patient. Please page with any additional concerns. Leila Smiley DNP Director, Palliative Medicine History of Present Illness Reason for Consultation: sx mgt, goals of care, worsening esld, sister is POA and does not want escalation Attending Physician: Laure Flores MD History of Present Illness Mich is a 64yo male with cirrhosis, [facility]D [facility]p surgery now complicated by rising WBC and worsening AMS. Discussed at AM ICU huddle CT today: 1. Small to moderate amount of free fluid at the abdomen and pelvis with thin enhancing rim at the fluid adjacent to the liver and in the right paracolic gutter, could represent infected fluid. There is a small amount of free air which could be due to the prior surgery. However, anastomotic leak is also a possibility. 2. Mildly dilated small bowel loops at the central and upper abdomen, ileus versus early small bowel obstruction. 3. Otherwise as described. Allergies Allergy/AdvReac Type Severity Reaction Status Date / Time No Known Drug Allergies Allergy Unknown Verified 07/19/24 18:46 Patient History Medical History (Updated 12/05/24 @ 19:17 by Tammy Smiley DNP) Septic shock COPD (chronic obstructive pulmonary disease) Macrocytic anemia Coagulopathy Anemia Alcohol dependence Social History Smoking Status: Current every day smoker Tobacco Type: Cigarettes Cigarettes Per Day: 20; Do You Dip or Chew Tobacco: No; Hx Alcohol Use: Yes Alcohol type: beer Hx Substance Use: No Preferred Language: Ukrainian Communication Ability: Effective Student Services Counselor Required: No Beliefs That Will Affect Care: None Current Living Situation: Other Current Living Situation Comment: 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 Feels Safe at Home: Yes Assistive Devices: None Review of Systems Review of Systems: Unobtainable due to cognitive status Physical Exam Physical Exam: critically ill appearing male +AMS, lethargy, unable to participate in exam Bitemp wasting tachy diaphoretic inc resp effort at times with use of accessory muscles abd distended surgical drain in place gen weakness pallor+ unable to follow commands Results & Data Vital Signs (Past 12 Hours) Vital Signs Pulse O2 Del Method O2 Flow Rate 12/05/24 08:00 Oxymask 2 12/05/24 08:00 103 H Laboratory Results 12/05/24 12/05/24 12/05/24 Range/Units 12:16 06:07 04:37 WBC 33.08 H* (4.8-10.8) K/ul RBC 4.04 L (4.70-6.10) M/uL Hgb 9.5 L (14.0-18.0) g/dl POC Hgb (14.0-18.0) g/dl Hct 31.6 L (42.0-52.0) % POC Hct (42-52) % MCV 78.2 L (80.0-100.0) fL MCH 23.5 L (25.0-34.0) pg MCHC 30.1 L (32.0-36.0) g/dL RDW Std Deviation (36.4-46.3) fL RDW Coeff of Jourdan (11.5-14.5) % Plt Count 105 L D (130-400) K/uL MPV (9.4-12.4) fL Immature Gran % (Auto) % Neut % (Auto) % Lymph % (Auto) % Gregg % (Auto) % Eos % (Auto) % Baso % (Auto) % Neut # (Auto) (1.40-6.50) K/uL Lymph # (Auto) (1.20-3.40) K/uL Gregg # (Auto) (0.11-0.59) K/uL Eos # (Auto) (0.00-0.50) K/uL Baso # (Auto) (0.00-0.20) K/uL Immature Gran # (Auto) (0.01-0.20) K/uL Absolute Nucleated RBC 0.13 H (0.00-0.12) K/uL Nucleated RBC % (auto) 0.4 % Dohle Bodies Polychromasia Hypochromasia Poikilocytosis Anisocytosis Target Cells Tear Drop Cells Haptoglobin PT (9.0-12.0) Seconds INR (0.9-1.1) Fibrinogen (184-400) mg/dl Factor VIII Activity (55 - 145) % Specimen Type Sample Site POC pH (7.35-7.45) POC pCO2 (35-46) mmHg POC pO2 (80-95) mmHg POC HCO3 (19-24) deidra/L POC Total CO2 (24-31) mmol/L POC Base Excess (-9-1.8) deidra/L O2 Sat Pulse Oximetry ABG pH (Temp Correct) (7.35-7.45) ABG pCO2 (Temp Corrct (35-46) mmHg POC ABG pO2 at Pt Temp POC ABG O2 Sat (90-95) % Rocael Test O2 Delivery Device Vent Mode POC FiO2 % End Tidal CO2 POC Sodium (135-144) mmol/L Sodium 145 (136-145) mmol/L POC Potassium (3.3-5.0) mmol/L Potassium 2.8 L (3.5-5.1) mmol/L Chloride 107 (98-107) mmol/L Carbon Dioxide 29 (21-32) mmol/L Anion Gap 9 (3-11) BUN 37 H (6-23) mg/dl Creatinine 1.06 (0.6-1.4) mg/dl Est Cr Clr Drug Dosing 65.3 ml/min eGFR 79.35 BUN/Creatinine Ratio 34.9 H (10-20) Glucose 163 H (70-99(Fasting)) mg/dl POC Glucose 145 H 158 H (70-99) mg/dl POC Glucose (other) (70-99) mg/dl Estimat Average Glucose mg/dl Hemoglobin A1c (4.5-5.6) % Lactate (0.4-2.0) mmol/L Calcium 8.0 L (8.6-10.3) mg/dl Phosphorus (2.5-4.9) mg/dl Magnesium 2.1 (1.7-2.4) mg/dl Unsaturated IBC (155-355) mcg/dl Total Bilirubin (0.2-1.0) mg/dl Direct Bilirubin (0-0.2) mg/dl AST (13-39) U/L ALT (7-52) U/L Alkaline Phosphatase (34-104) U/L Ammonia (18-72) umol/L Lactate Dehydrogenase (86-244) U/L Total Protein (6.0-8.3) gm/dl Albumin (3.4-5.0) gm/dl Globulin (2.5-4.0) gm/dl Albumin/Globulin Ratio (0.9-2) Random Cortisol mcg/dl Urine Color Urine Appearance (Clear) Urine pH (4.5-7.5) Ur Specific [place] (1.000-1.030) Urine Protein (Negative) Urine Glucose (UA) (Negative) Urine Ketones (Negative) Urine Blood (Negative) Urine Nitrite (Negative) Urine Bilirubin (Negative) Urine Urobilinogen (Negative) Ur Leukocyte Esterase (Negative) Urine WBC (Auto) (0-5) /hpf Urine RBC (Auto) (0-2) /hpf U Hyaline Cast (Auto) (0-2) /lpf U Epithel Cells (Auto) (0-2) /hpf Urine Bacteria (Auto) (None Seen) Urine Osmolality (500-800) mOsm/kg Ur Random Creatinine mg/dl Ur Random Sodium mmol/L Ur Random Potassium mmol/L Ur Random Chloride mmol/L Fluid Neutrophils % % Fluid Lymphocytes % % Fluid Basophils % % Fluid Meso/Macro/Gregg % % Fluid Comment Pleural Fluid Source Pleural Color Pleural Appearance Pleural pH (7.3-7.4) Pleural WBC (Auto) /uL Pleural RBC (Auto) /uL Pleural Total Protein gm/dl Pleural LDH U/L Pleural Glucose mg/dl Pleural Amylase U/L Nasal Screen MRSA (PCR) (Negative) YAQUELIN Screen SS-A/Ro Antibody SS-B/La Antibody Sm ([place]) Antibody EMPLOYEE RELATIONS REPRESENTATIVE Antibody Scl-70 Scleroderma Ab Anti-ds DNA (Crithidia) Chromatin Antibody Anti-Centromere Ab Thyroid Antimicrosomal Anti-Cardiolipin IgG Ab Anti-Cardiolipin IgA Ab Anti-Cardiolipin IgM Ab Complement C3 Complement C4 Blood Type Antibody Screen Crossmatch 12/04/24 12/04/24 12/04/24 Range/Units 23:19 17:53 15:17 WBC (4.8-10.8) K/ul RBC (4.70-6.10) M/uL Hgb (14.0-18.0) g/dl POC Hgb (14.0-18.0) g/dl Hct (42.0-52.0) % POC Hct (42-52) % MCV (80.0-100.0) fL MCH (25.0-34.0) pg MCHC (32.0-36.0) g/dL RDW Std Deviation (36.4-46.3) fL RDW Coeff of Jourdan (11.5-14.5) % Plt Count (130-400) K/uL MPV (9.4-12.4) fL Immature Gran % (Auto) % Neut % (Auto) % Lymph % (Auto) % Gregg % (Auto) % Eos % (Auto) % Baso % (Auto) % Neut # (Auto) (1.40-6.50) K/uL Lymph # (Auto) (1.20-3.40) K/uL Gregg # (Auto) (0.11-0.59) K/uL Eos # (Auto) (0.00-0.50) K/uL Baso # (Auto) (0.00-0.20) K/uL Immature Gran # (Auto) (0.01-0.20) K/uL Absolute Nucleated RBC (0.00-0.12) K/uL Nucleated RBC % (auto) % Dohle Bodies Polychromasia Hypochromasia Poikilocytosis Anisocytosis Target Cells Tear Drop Cells Haptoglobin PT (9.0-12.0) Seconds INR (0.9-1.1) Fibrinogen (184-400) mg/dl Factor VIII Activity (55 - 145) % Specimen Type Sample Site POC pH (7.35-7.45) POC pCO2 (35-46) mmHg POC pO2 (80-95) mmHg POC HCO3 (19-24) deidra/L POC Total CO2 (24-31) mmol/L POC Base Excess (-9-1.8) deidra/L O2 Sat Pulse Oximetry ABG pH (Temp Correct) (7.35-7.45) ABG pCO2 (Temp Corrct (35-46) mmHg POC ABG pO2 at Pt Temp POC ABG O2 Sat (90-95) % Rocael Test O2 Delivery Device Vent Mode POC FiO2 % End Tidal CO2 POC Sodium (135-144) mmol/L Sodium (136-145) mmol/L POC Potassium (3.3-5.0) mmol/L Potassium 2.9 L D (3.5-5.1) mmol/L Chloride (98-107) mmol/L Carbon Dioxide (21-32) mmol/L Anion Gap (3-11) BUN (6-23) mg/dl Creatinine (0.6-1.4) mg/dl Est Cr Clr Drug Dosing ml/min eGFR BUN/Creatinine Ratio (10-20) Glucose (70-99(Fasting)) mg/dl POC Glucose 170 H 171 H (70-99) mg/dl POC Glucose (other) (70-99) mg/dl Estimat Average Glucose mg/dl Hemoglobin A1c (4.5-5.6) % Lactate (0.4-2.0) mmol/L Calcium (8.6-10.3) mg/dl Phosphorus (2.5-4.9) mg/dl Magnesium (1.7-2.4) mg/dl Unsaturated IBC (155-355) mcg/dl Total Bilirubin (0.2-1.0) mg/dl Direct Bilirubin (0-0.2) mg/dl AST (13-39) U/L ALT (7-52) U/L Alkaline Phosphatase (34-104) U/L Ammonia (18-72) umol/L Lactate Dehydrogenase (86-244) U/L Total Protein (6.0-8.3) gm/dl Albumin (3.4-5.0) gm/dl Globulin (2.5-4.0) gm/dl Albumin/Globulin Ratio (0.9-2) Random Cortisol mcg/dl Urine Color Urine Appearance (Clear) Urine pH (4.5-7.5) Ur Specific [place] (1.000-1.030) Urine Protein (Negative) Urine Glucose (UA) (Negative) Urine Ketones (Negative) Urine Blood (Negative) Urine Nitrite (Negative) Urine Bilirubin (Negative) Urine Urobilinogen (Negative) Ur Leukocyte Esterase (Negative) Urine WBC (Auto) (0-5) /hpf Urine RBC (Auto) (0-2) /hpf U Hyaline Cast (Auto) (0-2) /lpf U Epithel Cells (Auto) (0-2) /hpf Urine Bacteria (Auto) (None Seen) Urine Osmolality (500-800) mOsm/kg Ur Random Creatinine mg/dl Ur Random Sodium mmol/L Ur Random Potassium mmol/L Ur Random Chloride mmol/L Fluid Neutrophils % % Fluid Lymphocytes % % Fluid Basophils % % Fluid Meso/Macro/Gregg % % Fluid Comment Pleural Fluid Source Pleural Color Pleural Appearance Pleural pH (7.3-7.4) Pleural WBC (Auto) /uL Pleural RBC (Auto) /uL Pleural Total Protein gm/dl Pleural LDH U/L Pleural Glucose mg/dl Pleural Amylase U/L Nasal Screen MRSA (PCR) (Negative) YAQUELIN Screen SS-A/Ro Antibody SS-B/La Antibody Sm ([place]) Antibody EMPLOYEE RELATIONS REPRESENTATIVE Antibody Scl-70 Scleroderma Ab Anti-ds DNA (Crithidia) Chromatin Antibody Anti-Centromere Ab Thyroid Antimicrosomal Anti-Cardiolipin IgG Ab Anti-Cardiolipin IgA Ab Anti-Cardiolipin IgM Ab Complement C3 Complement C4 Blood Type Antibody Screen Crossmatch 12/04/24 12/04/24 12/04/24 Range/Units 14:28 13:32 12:51 WBC (4.8-10.8) K/ul RBC (4.70-6.10) M/uL Hgb (14.0-18.0) g/dl POC Hgb (14.0-18.0) g/dl Hct (42.0-52.0) % POC Hct (42-52) % MCV (80.0-100.0) fL MCH (25.0-34.0) pg MCHC (32.0-36.0) g/dL RDW Std Deviation (36.4-46.3) fL RDW Coeff of Jourdan (11.5-14.5) % Plt Count (130-400) K/uL MPV (9.4-12.4) fL Immature Gran % (Auto) % Neut % (Auto) % Lymph % (Auto) % Gregg % (Auto) % Eos % (Auto) % Baso % (Auto) % Neut # (Auto) (1.40-6.50) K/uL Lymph # (Auto) (1.20-3.40) K/uL Gregg # (Auto) (0.11-0.59) K/uL Eos # (Auto) (0.00-0.50) K/uL Baso # (Auto) (0.00-0.20) K/uL Immature Gran # (Auto) (0.01-0.20) K/uL Absolute Nucleated RBC (0.00-0.12) K/uL Nucleated RBC % (auto) % Dohle Bodies Polychromasia Hypochromasia Poikilocytosis Anisocytosis Target Cells Tear Drop Cells Haptoglobin PT (9.0-12.0) Seconds INR (0.9-1.1) Fibrinogen (184-400) mg/dl Factor VIII Activity (55 - 145) % Specimen Type Sample Site POC pH (7.35-7.45) POC pCO2 (35-46) mmHg POC pO2 (80-95) mmHg POC HCO3 (19-24) deidra/L POC Total CO2 (24-31) mmol/L POC Base Excess (-9-1.8) deidra/L O2 Sat Pulse Oximetry ABG pH (Temp Correct) (7.35-7.45) ABG pCO2 (Temp Corrct (35-46) mmHg POC ABG pO2 at Pt Temp POC ABG O2 Sat (90-95) % Rocael Test O2 Delivery Device Vent Mode POC FiO2 % End Tidal CO2 POC Sodium (135-144) mmol/L Sodium 143 (136-145) mmol/L POC Potassium (3.3-5.0) mmol/L Potassium TNP Cancelled TNP (3.5-5.1) mmol/L Chloride 108 H (98-107) mmol/L Carbon Dioxide 26 (21-32) mmol/L Anion Gap 9 (3-11) BUN 38 H (6-23) mg/dl Creatinine 1.11 (0.6-1.4) mg/dl Est Cr Clr Drug Dosing 62.4 ml/min eGFR 75.08 BUN/Creatinine Ratio 34.2 H (10-20) Glucose 179 H (70-99(Fasting)) mg/dl POC Glucose (70-99) mg/dl POC Glucose (other) (70-99) mg/dl Estimat Average Glucose mg/dl Hemoglobin A1c (4.5-5.6) % Lactate (0.4-2.0) mmol/L Calcium 7.5 L (8.6-10.3) mg/dl Phosphorus (2.5-4.9) mg/dl Magnesium (1.7-2.4) mg/dl Unsaturated IBC (155-355) mcg/dl Total Bilirubin (0.2-1.0) mg/dl Direct Bilirubin (0-0.2) mg/dl AST (13-39) U/L ALT (7-52) U/L Alkaline Phosphatase (34-104) U/L Ammonia (18-72) umol/L Lactate Dehydrogenase (86-244) U/L Total Protein (6.0-8.3) gm/dl Albumin (3.4-5.0) gm/dl Globulin (2.5-4.0) gm/dl Albumin/Globulin Ratio (0.9-2) Random Cortisol mcg/dl Urine Color Urine Appearance (Clear) Urine pH (4.5-7.5) Ur Specific [place] (1.000-1.030) Urine Protein (Negative) Urine Glucose (UA) (Negative) Urine Ketones (Negative) Urine Blood (Negative) Urine Nitrite (Negative) Urine Bilirubin (Negative) Urine Urobilinogen (Negative) Ur Leukocyte Esterase (Negative) Urine WBC (Auto) (0-5) /hpf Urine RBC (Auto) (0-2) /hpf U Hyaline Cast (Auto) (0-2) /lpf U Epithel Cells (Auto) (0-2) /hpf Urine Bacteria (Auto) (None Seen) Urine Osmolality (500-800) mOsm/kg Ur Random Creatinine mg/dl Ur Random Sodium mmol/L Ur Random Potassium mmol/L Ur Random Chloride mmol/L Fluid Neutrophils % % Fluid Lymphocytes % % Fluid Basophils % % Fluid Meso/Macro/Gregg % % Fluid Comment Pleural Fluid Source Pleural Color Pleural Appearance Pleural pH (7.3-7.4) Pleural WBC (Auto) /uL Pleural RBC (Auto) /uL Pleural Total Protein gm/dl Pleural LDH U/L Pleural Glucose mg/dl Pleural Amylase U/L Nasal Screen MRSA (PCR) (Negative) YAQUELIN Screen SS-A/Ro Antibody SS-B/La Antibody Sm ([place]) Antibody EMPLOYEE RELATIONS REPRESENTATIVE Antibody Scl-70 Scleroderma Ab Anti-ds DNA (Crithidia) Chromatin Antibody Anti-Centromere Ab Thyroid Antimicrosomal Anti-Cardiolipin IgG Ab Anti-Cardiolipin IgA Ab Anti-Cardiolipin IgM Ab Complement C3 Complement C4 Blood Type Antibody Screen Crossmatch 12/04/24 12/04/24 12/03/24 Range/Units 11:45 04:46 23:41 WBC 24.01 H (4.8-10.8) K/ul RBC 4.08 L (4.70-6.10) M/uL Hgb 9.7 L (14.0-18.0) g/dl POC Hgb (14.0-18.0) g/dl Hct 31.2 L (42.0-52.0) % POC Hct (42-52) % MCV 76.5 L (80.0-100.0) fL MCH 23.8 L (25.0-34.0) pg MCHC 31.1 L (32.0-36.0) g/dL RDW Std Deviation (36.4-46.3) fL RDW Coeff of Jourdan (11.5-14.5) % Plt Count 68 L (130-400) K/uL MPV (9.4-12.4) fL Immature Gran % (Auto) % Neut % (Auto) % Lymph % (Auto) % Gregg % (Auto) % Eos % (Auto) % Baso % (Auto) % Neut # (Auto) (1.40-6.50) K/uL Lymph # (Auto) (1.20-3.40) K/uL Gregg # (Auto) (0.11-0.59) K/uL Eos # (Auto) (0.00-0.50) K/uL Baso # (Auto) (0.00-0.20) K/uL Immature Gran # (Auto) (0.01-0.20) K/uL Absolute Nucleated RBC 0.12 (0.00-0.12) K/uL Nucleated RBC % (auto) 0.5 % Dohle Bodies Polychromasia Hypochromasia Poikilocytosis Anisocytosis Target Cells Tear Drop Cells Haptoglobin PT (9.0-12.0) Seconds INR (0.9-1.1) Fibrinogen (184-400) mg/dl Factor VIII Activity (55 - 145) % Specimen Type Sample Site POC pH (7.35-7.45) POC pCO2 (35-46) mmHg POC pO2 (80-95) mmHg POC HCO3 (19-24) deidra/L POC Total CO2 (24-31) mmol/L POC Base Excess (-9-1.8) deidra/L O2 Sat Pulse Oximetry ABG pH (Temp Correct) (7.35-7.45) ABG pCO2 (Temp Corrct (35-46) mmHg POC ABG pO2 at Pt Temp POC ABG O2 Sat (90-95) % Rocael Test O2 Delivery Device Vent Mode POC FiO2 % End Tidal CO2 POC Sodium (135-144) mmol/L Sodium 146 H (136-145) mmol/L POC Potassium (3.3-5.0) mmol/L Potassium 2.4 L* D (3.5-5.1) mmol/L Chloride 109 H (98-107) mmol/L Carbon Dioxide 26 (21-32) mmol/L Anion Gap 11 (3-11) BUN 39 H (6-23) mg/dl Creatinine 1.23 (0.6-1.4) mg/dl Est Cr Clr Drug Dosing 60.2 ml/min eGFR 66.38 BUN/Creatinine Ratio 31.7 H (10-20) Glucose 137 H (70-99(Fasting)) mg/dl POC Glucose 157 H 152 H (70-99) mg/dl POC Glucose (other) (70-99) mg/dl Estimat Average Glucose mg/dl Hemoglobin A1c (4.5-5.6) % Lactate (0.4-2.0) mmol/L Calcium 8.1 L (8.6-10.3) mg/dl Phosphorus 3.4 (2.5-4.9) mg/dl Magnesium 1.8 (1.7-2.4) mg/dl Unsaturated IBC (155-355) mcg/dl Total Bilirubin (0.2-1.0) mg/dl Direct Bilirubin (0-0.2) mg/dl AST (13-39) U/L ALT (7-52) U/L Alkaline Phosphatase (34-104) U/L Ammonia (18-72) umol/L Lactate Dehydrogenase (86-244) U/L Total Protein (6.0-8.3) gm/dl Albumin (3.4-5.0) gm/dl Globulin (2.5-4.0) gm/dl Albumin/Globulin Ratio (0.9-2) Random Cortisol mcg/dl Urine Color Urine Appearance (Clear) Urine pH (4.5-7.5) Ur Specific [place] (1.000-1.030) Urine Protein (Negative) Urine Glucose (UA) (Negative) Urine Ketones (Negative) Urine Blood (Negative) Urine Nitrite (Negative) Urine Bilirubin (Negative) Urine Urobilinogen (Negative) Ur Leukocyte Esterase (Negative) Urine WBC (Auto) (0-5) /hpf Urine RBC (Auto) (0-2) /hpf U Hyaline Cast (Auto) (0-2) /lpf U Epithel Cells (Auto) (0-2) /hpf Urine Bacteria (Auto) (None Seen) Urine Osmolality (500-800) mOsm/kg Ur Random Creatinine mg/dl Ur Random Sodium mmol/L Ur Random Potassium mmol/L Ur Random Chloride mmol/L Fluid Neutrophils % % Fluid Lymphocytes % % Fluid Basophils % % Fluid Meso/Macro/Gregg % % Fluid Comment Pleural Fluid Source Pleural Color Pleural Appearance Pleural pH (7.3-7.4) Pleural WBC (Auto) /uL Pleural RBC (Auto) /uL Pleural Total Protein gm/dl Pleural LDH U/L Pleural Glucose mg/dl Pleural Amylase U/L Nasal Screen MRSA (PCR) (Negative) YAQUELIN Screen SS-A/Ro Antibody SS-B/La Antibody Sm ([place]) Antibody EMPLOYEE RELATIONS REPRESENTATIVE Antibody Scl-70 Scleroderma Ab Anti-ds DNA (Crithidia) Chromatin Antibody Anti-Centromere Ab Thyroid Antimicrosomal Anti-Cardiolipin IgG Ab Anti-Cardiolipin IgA Ab Anti-Cardiolipin IgM Ab Complement C3 Complement C4 Blood Type Antibody Screen Crossmatch 12/03/24 12/03/24 12/03/24 Range/Units 17:51 11:09 04:16 WBC 17.58 H (4.8-10.8) K/ul RBC 3.46 L (4.70-6.10) M/uL Hgb 8.0 L (14.0-18.0) g/dl POC Hgb (14.0-18.0) g/dl Hct 26.6 L (42.0-52.0) % POC Hct (42-52) % MCV 76.9 L (80.0-100.0) fL MCH 23.1 L (25.0-34.0) pg MCHC 30.1 L (32.0-36.0) g/dL RDW Std Deviation (36.4-46.3) fL RDW Coeff of Jourdan (11.5-14.5) % Plt Count 48 L (130-400) K/uL MPV (9.4-12.4) fL Immature Gran % (Auto) % Neut % (Auto) % Lymph % (Auto) % Gregg % (Auto) % Eos % (Auto) % Baso % (Auto) % Neut # (Auto) (1.40-6.50) K/uL Lymph # (Auto) (1.20-3.40) K/uL Gregg # (Auto) (0.11-0.59) K/uL Eos # (Auto) (0.00-0.50) K/uL Baso # (Auto) (0.00-0.20) K/uL Immature Gran # (Auto) (0.01-0.20) K/uL Absolute Nucleated RBC 0.23 H (0.00-0.12) K/uL Nucleated RBC % (auto) 1.3 % Dohle Bodies Polychromasia Hypochromasia Poikilocytosis Anisocytosis Target Cells Tear Drop Cells Haptoglobin PT (9.0-12.0) Seconds INR (0.9-1.1) Fibrinogen (184-400) mg/dl Factor VIII Activity (55 - 145) % Specimen Type Sample Site POC pH (7.35-7.45) POC pCO2 (35-46) mmHg POC pO2 (80-95) mmHg POC HCO3 (19-24) deidra/L POC Total CO2 (24-31) mmol/L POC Base Excess (-9-1.8) deidra/L O2 Sat Pulse Oximetry ABG pH (Temp Correct) (7.35-7.45) ABG pCO2 (Temp Corrct (35-46) mmHg POC ABG pO2 at Pt Temp POC ABG O2 Sat (90-95) % Rocael Test O2 Delivery Device Vent Mode POC FiO2 % End Tidal CO2 POC Sodium (135-144) mmol/L Sodium 141 (136-145) mmol/L POC Potassium (3.3-5.0) mmol/L Potassium 3.5 (3.5-5.1) mmol/L Chloride 109 H (98-107) mmol/L Carbon Dioxide 24 (21-32) mmol/L Anion Gap 8 (3-11) BUN 48 H (6-23) mg/dl Creatinine 1.52 H (0.6-1.4) mg/dl Est Cr Clr Drug Dosing 48.8 ml/min eGFR 51.49 BUN/Creatinine Ratio 31.6 H (10-20) Glucose 91 (70-99(Fasting)) mg/dl POC Glucose 140 H 104 H (70-99) mg/dl POC Glucose (other) (70-99) mg/dl Estimat Average Glucose mg/dl Hemoglobin A1c (4.5-5.6) % Lactate (0.4-2.0) mmol/L Calcium 7.5 L (8.6-10.3) mg/dl Phosphorus 2.9 (2.5-4.9) mg/dl Magnesium 2.0 (1.7-2.4) mg/dl Unsaturated IBC (155-355) mcg/dl Total Bilirubin (0.2-1.0) mg/dl Direct Bilirubin (0-0.2) mg/dl AST (13-39) U/L ALT (7-52) U/L Alkaline Phosphatase (34-104) U/L Ammonia (18-72) umol/L Lactate Dehydrogenase (86-244) U/L Total Protein (6.0-8.3) gm/dl Albumin (3.4-5.0) gm/dl Globulin (2.5-4.0) gm/dl Albumin/Globulin Ratio (0.9-2) Random Cortisol mcg/dl Urine Color Urine Appearance (Clear) Urine pH (4.5-7.5) Ur Specific [place] (1.000-1.030) Urine Protein (Negative) Urine Glucose (UA) (Negative) Urine Ketones (Negative) Urine Blood (Negative) Urine Nitrite (Negative) Urine Bilirubin (Negative) Urine Urobilinogen (Negative) Ur Leukocyte Esterase (Negative) Urine WBC (Auto) (0-5) /hpf Urine RBC (Auto) (0-2) /hpf U Hyaline Cast (Auto) (0-2) /lpf U Epithel Cells (Auto) (0-2) /hpf Urine Bacteria (Auto) (None Seen) Urine Osmolality (500-800) mOsm/kg Ur Random Creatinine mg/dl Ur Random Sodium mmol/L Ur Random Potassium mmol/L Ur Random Chloride mmol/L Fluid Neutrophils % % Fluid Lymphocytes % % Fluid Basophils % % Fluid Meso/Macro/Gregg % % Fluid Comment Pleural Fluid Source Pleural Color Pleural Appearance Pleural pH (7.3-7.4) Pleural WBC (Auto) /uL Pleural RBC (Auto) /uL Pleural Total Protein gm/dl Pleural LDH U/L Pleural Glucose mg/dl Pleural Amylase U/L Nasal Screen MRSA (PCR) (Negative) YAQUELIN Screen SS-A/Ro Antibody SS-B/La Antibody Sm ([place]) Antibody EMPLOYEE RELATIONS REPRESENTATIVE Antibody Scl-70 Scleroderma Ab Anti-ds DNA (Crithidia) Chromatin Antibody Anti-Centromere Ab Thyroid Antimicrosomal Anti-Cardiolipin IgG Ab Anti-Cardiolipin IgA Ab Anti-Cardiolipin IgM Ab Complement C3 Complement C4 Blood Type Antibody Screen Crossmatch 12/03/24 12/02/24 12/02/24 Range/Units 00:57 16:51 11:51 WBC (4.8-10.8) K/ul RBC (4.70-6.10) M/uL Hgb (14.0-18.0) g/dl POC Hgb (14.0-18.0) g/dl Hct (42.0-52.0) % POC Hct (42-52) % MCV (80.0-100.0) fL MCH (25.0-34.0) pg MCHC (32.0-36.0) g/dL RDW Std Deviation (36.4-46.3) fL RDW Coeff of Jourdan (11.5-14.5) % Plt Count (130-400) K/uL MPV (9.4-12.4) fL Immature Gran % (Auto) % Neut % (Auto) % Lymph % (Auto) % [place] % (Auto) % Eos % (Auto) % Baso % (Auto) % Neut # (Auto) (1.40-6.50) K/uL Lymph # (Auto) (1.20-3.40) K/uL [place]gg # (Auto) (0.11-0.59) K/uL Eos # (Auto) (0.00-0.50) K/uL Baso # (Auto) (0.00-0.20) K/uL Immature Gran # (Auto) (0.01-0.20) K/uL Absolute Nucleated RBC (0.00-0.12) K/uL Nucleated RBC % (auto) % Dohle Bodies Polychromasia Hypochromasia Poikilocytosis Anisocytosis Target Cells Tear Drop Cells Haptoglobin PT (9.0-12.0) Seconds INR (0.9-1.1) Fibrinogen (184-400) mg/dl Factor VIII Activity (55 - 145) % Specimen Type Sample Site POC pH (7.35-7.45) POC pCO2 (35-46) mmHg POC pO2 (80-95) mmHg POC HCO3 (19-24) deidra/L POC Total CO2 (24-31) mmol/L POC Base Excess (-9-1.8) deidra/L O2 Sat Pulse Oximetry ABG pH (Temp Correct) (7.35-7.45) ABG pCO2 (Temp Corrct (35-46) mmHg POC ABG pO2 at Pt Temp POC ABG O2 Sat (90-95) % Rocael Test O2 Delivery Device Vent Mode POC FiO2 % End Tidal CO2 POC Sodium (135-144) mmol/L Sodium (136-145) mmol/L POC Potassium (3.3-5.0) mmol/L Potassium (3.5-5.1) mmol/L Chloride (98-107) mmol/L Carbon Dioxide (21-32) mmol/L Anion Gap (3-11) BUN (6-23) mg/dl Creatinine (0.6-1.4) mg/dl Est Cr Clr Drug Dosing ml/min eGFR BUN/Creatinine Ratio (10-20) Glucose (70-99(Fasting)) mg/dl POC Glucose 95 105 H 149 H (70-99) mg/dl POC Glucose (other) (70-99) mg/dl Estimat Average Glucose mg/dl Hemoglobin A1c (4.5-5.6) % Lactate (0.4-2.0) mmol/L Calcium (8.6-10.3) mg/dl Phosphorus (2.5-4.9) mg/dl Magnesium (1.7-2.4) mg/dl Unsaturated IBC (155-355) mcg/dl Total Bilirubin (0.2-1.0) mg/dl Direct Bilirubin (0-0.2) mg/dl AST (13-39) U/L ALT (7-52) U/L Alkaline Phosphatase (34-104) U/L Ammonia (18-72) umol/L Lactate Dehydrogenase (86-244) U/L Total Protein (6.0-8.3) gm/dl Albumin (3.4-5.0) gm/dl Globulin (2.5-4.0) gm/dl Albumin/Globulin Ratio (0.9-2) Random Cortisol mcg/dl Urine Color Urine Appearance (Clear) Urine pH (4.5-7.5) Ur Specific [place] (1.000-1.030) Urine Protein (Negative) Urine Glucose (UA) (Negative) Urine Ketones (Negative) Urine Blood (Negative) Urine Nitrite (Negative) Urine Bilirubin (Negative) Urine Urobilinogen (Negative) Ur Leukocyte Esterase (Negative) Urine WBC (Auto) (0-5) /hpf Urine RBC (Auto) (0-2) /hpf U Hyaline Cast (Auto) (0-2) /lpf U Epithel Cells (Auto) (0-2) /hpf Urine Bacteria (Auto) (None Seen) Urine Osmolality (500-800) mOsm/kg Ur Random Creatinine mg/dl Ur Random Sodium mmol/L Ur Random Potassium mmol/L Ur Random Chloride mmol/L Fluid Neutrophils % % Fluid Lymphocytes % % Fluid Basophils % % Fluid Meso/Macro/Gregg % % Fluid Comment Pleural Fluid Source Pleural Color Pleural Appearance Pleural pH (7.3-7.4) Pleural WBC (Auto) /uL Pleural RBC (Auto) /uL Pleural Total Protein gm/dl Pleural LDH U/L Pleural Glucose mg/dl Pleural Amylase U/L Nasal Screen MRSA (PCR) (Negative) [place] Screen SS-A/Ro Antibody SS-B/La Antibody Sm ([place]) Antibody EMPLOYEE RELATIONS REPRESENTATIVE Antibody Scl-70 Scleroderma Ab Anti-ds DNA (Crithidia) Chromatin Antibody Anti-Centromere Ab Thyroid Antimicrosomal Anti-Cardiolipin IgG Ab Anti-Cardiolipin IgA Ab Anti-Cardiolipin IgM Ab Complement C3 Complement C4 Blood Type Antibody Screen Crossmatch 12/02/24 12/02/24 12/02/24 Range/Units 09:00 08:51 05:18 WBC 15.51 H (4.8-10.8) K/ul RBC 3.26 L (4.70-6.10) M/uL Hgb 7.3 L (14.0-18.0) g/dl POC Hgb (14.0-18.0) g/dl Hct 24.8 L (42.0-52.0) % POC Hct (42-52) % MCV 76.1 L (80.0-100.0) fL MCH 22.4 L (25.0-34.0) pg MCHC 29.4 L (32.0-36.0) g/dL RDW Std Deviation (36.4-46.3) fL RDW Coeff of Jourdan (11.5-14.5) % Plt Count 42 L (130-400) K/uL MPV (9.4-12.4) fL Immature Gran % (Auto) 1.0 % Neut % (Auto) 80.7 % Lymph % (Auto) 8.4 % Gregg % (Auto) 9.5 % Eos % (Auto) 0.2 % Baso % (Auto) 0.2 % Neut # (Auto) 12.51 H (1.40-6.50) K/uL Lymph # (Auto) 1.31 (1.20-3.40) K/uL Gregg # (Auto) 1.48 H (0.11-0.59) K/uL Eos # (Auto) 0.03 (0.00-0.50) K/uL Baso # (Auto) 0.03 (0.00-0.20) K/uL Immature Gran # (Auto) 0.15 (0.01-0.20) K/uL Absolute Nucleated RBC 0.24 H (0.00-0.12) K/uL Nucleated RBC % (auto) 1.5 % Dohle Bodies Polychromasia 1+ Hypochromasia Present Poikilocytosis Anisocytosis Target Cells Tear Drop Cells Haptoglobin Pending PT 18.1 H (9.0-12.0) Seconds INR 1.8 H (0.9-1.1) Fibrinogen 282 (184-400) mg/dl Factor VIII Activity See Scanned Report (55 - 145) % Specimen Type Sample Site POC pH (7.35-7.45) POC pCO2 (35-46) mmHg POC pO2 (80-95) mmHg POC HCO3 (19-24) deidra/L POC Total CO2 (24-31) mmol/L POC Base Excess (-9-1.8) deidra/L O2 Sat Pulse Oximetry ABG pH (Temp Correct) (7.35-7.45) ABG pCO2 (Temp Corrct (35-46) mmHg POC ABG pO2 at Pt Temp POC ABG O2 Sat (90-95) % Rocael Test O2 Delivery Device Vent Mode POC FiO2 % End Tidal CO2 POC Sodium (135-144) mmol/L Sodium 136 (136-145) mmol/L POC Potassium (3.3-5.0) mmol/L Potassium 3.8 (3.5-5.1) mmol/L Chloride 106 (98-107) mmol/L Carbon Dioxide 23 (21-32) mmol/L Anion Gap 7 (3-11) BUN 50 H (6-23) mg/dl Creatinine 1.58 H D (0.6-1.4) mg/dl Est Cr Clr Drug Dosing 46.9 ml/min eGFR 49.15 BUN/Creatinine Ratio 31.6 H (10-20) Glucose 121 H (70-99(Fasting)) mg/dl POC Glucose (70-99) mg/dl POC Glucose (other) (70-99) mg/dl Estimat Average Glucose 111 mg/dl Hemoglobin A1c 5.5 (4.5-5.6) % Lactate (0.4-2.0) mmol/L Calcium 7.6 L (8.6-10.3) mg/dl Phosphorus 3.2 (2.5-4.9) mg/dl Magnesium 2.0 (1.7-2.4) mg/dl Unsaturated IBC (155-355) mcg/dl Total Bilirubin (0.2-1.0) mg/dl Direct Bilirubin (0-0.2) mg/dl AST (13-39) U/L ALT (7-52) U/L Alkaline Phosphatase (34-104) U/L Ammonia (18-72) umol/L Lactate Dehydrogenase 120 (86-244) U/L Total Protein (6.0-8.3) gm/dl Albumin (3.4-5.0) gm/dl Globulin (2.5-4.0) gm/dl Albumin/Globulin Ratio (0.9-2) Random Cortisol mcg/dl Urine Color Urine Appearance (Clear) Urine pH (4.5-7.5) Ur Specific [place] (1.000-1.030) Urine Protein (Negative) Urine Glucose (UA) (Negative) Urine Ketones (Negative) Urine Blood (Negative) Urine Nitrite (Negative) Urine Bilirubin (Negative) Urine Urobilinogen (Negative) Ur Leukocyte Esterase (Negative) Urine WBC (Auto) (0-5) /hpf Urine RBC (Auto) (0-2) /hpf U Hyaline Cast (Auto) (0-2) /lpf U Epithel Cells (Auto) (0-2) /hpf Urine Bacteria (Auto) (None Seen) Urine Osmolality (500-800) mOsm/kg Ur Random Creatinine mg/dl Ur Random Sodium mmol/L Ur Random Potassium mmol/L Ur Random Chloride mmol/L Fluid Neutrophils % % Fluid Lymphocytes % % Fluid Basophils % % Fluid Meso/Macro/Gregg % % Fluid Comment Pleural Fluid Source Pleural Color Pleural Appearance Pleural pH (7.3-7.4) Pleural WBC (Auto) /uL Pleural RBC (Auto) /uL Pleural Total Protein gm/dl Pleural LDH U/L Pleural Glucose mg/dl Pleural Amylase U/L Nasal Screen MRSA (PCR) (Negative) [place] Screen Pending SS-A/Ro Antibody Pending SS-B/La Antibody Pending Sm ([place]) Antibody Pending EMPLOYEE RELATIONS REPRESENTATIVE Antibody Pending Scl-70 Scleroderma Ab Pending Anti-ds DNA (Crithidia) Pending Chromatin Antibody Pending Anti-Centromere Ab Pending Thyroid Antimicrosomal Pending Anti-Cardiolipin IgG Ab Pending Anti-Cardiolipin IgA Ab Pending Anti-Cardiolipin IgM Ab Pending Complement C3 Pending Complement C4 Pending Blood Type Antibody Screen Crossmatch 12/02/24 12/02/24 12/01/24 Range/Units 05:09 00:41 18:24 WBC (4.8-10.8) K/ul RBC (4.70-6.10) M/uL Hgb (14.0-18.0) g/dl POC Hgb (14.0-18.0) g/dl Hct (42.0-52.0) % POC Hct (42-52) % MCV (80.0-100.0) fL MCH (25.0-34.0) pg MCHC (32.0-36.0) g/dL RDW Std Deviation (36.4-46.3) fL RDW Coeff of Jourdan (11.5-14.5) % Plt Count (130-400) K/uL MPV (9.4-12.4) fL Immature Gran % (Auto) % Neut % (Auto) % Lymph % (Auto) % Gregg % (Auto) % Eos % (Auto) % Baso % (Auto) % Neut # (Auto) (1.40-6.50) K/uL Lymph # (Auto) (1.20-3.40) K/uL Gregg # (Auto) (0.11-0.59) K/uL Eos # (Auto) (0.00-0.50) K/uL Baso # (Auto) (0.00-0.20) K/uL Immature Gran # (Auto) (0.01-0.20) K/uL Absolute Nucleated RBC (0.00-0.12) K/uL Nucleated RBC % (auto) % Dohle Bodies Polychromasia Hypochromasia Poikilocytosis Anisocytosis Target Cells Tear Drop Cells Haptoglobin PT (9.0-12.0) Seconds INR (0.9-1.1) Fibrinogen (184-400) mg/dl Factor VIII Activity (55 - 145) % Specimen Type Sample Site POC pH (7.35-7.45) POC pCO2 (35-46) mmHg POC pO2 (80-95) mmHg POC HCO3 (19-24) deidra/L POC Total CO2 (24-31) mmol/L POC Base Excess (-9-1.8) deidra/L O2 Sat Pulse Oximetry ABG pH (Temp Correct) (7.35-7.45) ABG pCO2 (Temp Corrct (35-46) mmHg POC ABG pO2 at Pt Temp POC ABG O2 Sat (90-95) % Rocael Test O2 Delivery Device Vent Mode POC FiO2 % End Tidal CO2 POC Sodium (135-144) mmol/L Sodium (136-145) mmol/L POC Potassium (3.3-5.0) mmol/L Potassium (3.5-5.1) mmol/L Chloride (98-107) mmol/L Carbon Dioxide (21-32) mmol/L Anion Gap (3-11) BUN (6-23) mg/dl Creatinine (0.6-1.4) mg/dl Est Cr Clr Drug Dosing ml/min eGFR BUN/Creatinine Ratio (10-20) Glucose (70-99(Fasting)) mg/dl POC Glucose 129 H (70-99) mg/dl POC Glucose (other) 107 H 98 (70-99) mg/dl Estimat Average Glucose mg/dl Hemoglobin A1c (4.5-5.6) % Lactate (0.4-2.0) mmol/L Calcium (8.6-10.3) mg/dl Phosphorus (2.5-4.9) mg/dl Magnesium (1.7-2.4) mg/dl Unsaturated IBC (155-355) mcg/dl Total Bilirubin (0.2-1.0) mg/dl Direct Bilirubin (0-0.2) mg/dl AST (13-39) U/L ALT (7-52) U/L Alkaline Phosphatase (34-104) U/L Ammonia (18-72) umol/L Lactate Dehydrogenase (86-244) U/L Total Protein (6.0-8.3) gm/dl Albumin (3.4-5.0) gm/dl Globulin (2.5-4.0) gm/dl Albumin/Globulin Ratio (0.9-2) Random Cortisol mcg/dl Urine Color Urine Appearance (Clear) Urine pH (4.5-7.5) Ur Specific [place] (1.000-1.030) Urine Protein (Negative) Urine Glucose (UA) (Negative) Urine Ketones (Negative) Urine Blood (Negative) Urine Nitrite (Negative) Urine Bilirubin (Negative) Urine Urobilinogen (Negative) Ur Leukocyte Esterase (Negative) Urine WBC (Auto) (0-5) /hpf Urine RBC (Auto) (0-2) /hpf U Hyaline Cast (Auto) (0-2) /lpf U Epithel Cells (Auto) (0-2) /hpf Urine Bacteria (Auto) (None Seen) Urine Osmolality (500-800) mOsm/kg Ur Random Creatinine mg/dl Ur Random Sodium mmol/L Ur Random Potassium mmol/L Ur Random Chloride mmol/L Fluid Neutrophils % % Fluid Lymphocytes % % Fluid Basophils % % Fluid Meso/Macro/Gregg % % Fluid Comment Pleural Fluid Source Pleural Color Pleural Appearance Pleural pH (7.3-7.4) Pleural WBC (Auto) /uL Pleural RBC (Auto) /uL Pleural Total Protein gm/dl Pleural LDH U/L Pleural Glucose mg/dl Pleural Amylase U/L Nasal Screen MRSA (PCR) (Negative) [place] Screen SS-A/Ro Antibody SS-B/La Antibody Sm ([place]) Antibody EMPLOYEE RELATIONS REPRESENTATIVE Antibody Scl-70 Scleroderma Ab Anti-ds DNA (Crithidia) Chromatin Antibody Anti-Centromere Ab Thyroid Antimicrosomal Anti-Cardiolipin IgG Ab Anti-Cardiolipin IgA Ab Anti-Cardiolipin IgM Ab Complement C3 Complement C4 Blood Type Antibody Screen Crossmatch 12/01/24 12/01/24 12/01/24 Range/Units 13:56 13:07 04:05 WBC 17.45 H (4.8-10.8) K/ul RBC 3.09 L (4.70-6.10) M/uL Hgb 8.5 L 6.8 L* (14.0-18.0) g/dl POC Hgb (14.0-18.0) g/dl Hct 27.3 L 22.5 L (42.0-52.0) % POC Hct (42-52) % MCV 72.8 L (80.0-100.0) fL MCH 22.0 L (25.0-34.0) pg MCHC 30.2 L (32.0-36.0) g/dL RDW Std Deviation (36.4-46.3) fL RDW Coeff of Jourdan (11.5-14.5) % Plt Count 60 L (130-400) K/uL MPV (9.4-12.4) fL Immature Gran % (Auto) 0.9 % Neut % (Auto) 83.1 % Lymph % (Auto) 8.5 % Gregg % (Auto) 7.0 % Eos % (Auto) 0.3 % Baso % (Auto) 0.2 % Neut # (Auto) 14.50 H (1.40-6.50) K/uL Lymph # (Auto) 1.48 (1.20-3.40) K/uL Gregg # (Auto) 1.22 H (0.11-0.59) K/uL Eos # (Auto) 0.05 (0.00-0.50) K/uL Baso # (Auto) 0.04 (0.00-0.20) K/uL Immature Gran # (Auto) 0.16 (0.01-0.20) K/uL Absolute Nucleated RBC 0.25 H (0.00-0.12) K/uL Nucleated RBC % (auto) 1.4 % Dohle Bodies 1+ Polychromasia Hypochromasia Present Poikilocytosis Anisocytosis Target Cells 1+ Tear Drop Cells 1+ Haptoglobin PT 18.1 H (9.0-12.0) Seconds INR 1.8 H (0.9-1.1) Fibrinogen (184-400) mg/dl Factor VIII Activity (55 - 145) % Specimen Type Sample Site POC pH (7.35-7.45) POC pCO2 (35-46) mmHg POC pO2 (80-95) mmHg POC HCO3 (19-24) deidra/L POC Total CO2 (24-31) mmol/L POC Base Excess (-9-1.8) deidra/L O2 Sat Pulse Oximetry ABG pH (Temp Correct) (7.35-7.45) ABG pCO2 (Temp Corrct (35-46) mmHg POC ABG pO2 at Pt Temp POC ABG O2 Sat (90-95) % Rocael Test O2 Delivery Device Vent Mode POC FiO2 % End Tidal CO2 POC Sodium (135-144) mmol/L Sodium 140 (136-145) mmol/L POC Potassium (3.3-5.0) mmol/L Potassium 3.5 (3.5-5.1) mmol/L Chloride 110 H (98-107) mmol/L Carbon Dioxide 22 (21-32) mmol/L Anion Gap 8 (3-11) BUN 56 H (6-23) mg/dl Creatinine 1.88 H D (0.6-1.4) mg/dl Est Cr Clr Drug Dosing 37.5 ml/min eGFR 39.90 BUN/Creatinine Ratio 29.8 H (10-20) Glucose 207 H (70-99(Fasting)) mg/dl POC Glucose (70-99) mg/dl POC Glucose (other) 72 (70-99) mg/dl Estimat Average Glucose mg/dl Hemoglobin A1c (4.5-5.6) % Lactate (0.4-2.0) mmol/L Calcium 7.3 L (8.6-10.3) mg/dl Phosphorus 3.2 D (2.5-4.9) mg/dl Magnesium 2.0 (1.7-2.4) mg/dl Unsaturated IBC 116 L (155-355) mcg/dl Total Bilirubin (0.2-1.0) mg/dl Direct Bilirubin (0-0.2) mg/dl AST (13-39) U/L ALT (7-52) U/L Alkaline Phosphatase (34-104) U/L Ammonia (18-72) umol/L Lactate Dehydrogenase (86-244) U/L Total Protein (6.0-8.3) gm/dl Albumin (3.4-5.0) gm/dl Globulin (2.5-4.0) gm/dl Albumin/Globulin Ratio (0.9-2) Random Cortisol 20.60 mcg/dl Urine Color Urine Appearance (Clear) Urine pH (4.5-7.5) Ur Specific [place] (1.000-1.030) Urine Protein (Negative) Urine Glucose (UA) (Negative) Urine Ketones (Negative) Urine Blood (Negative) Urine Nitrite (Negative) Urine Bilirubin (Negative) Urine Urobilinogen (Negative) Ur Leukocyte Esterase (Negative) Urine WBC (Auto) (0-5) /hpf Urine RBC (Auto) (0-2) /hpf U Hyaline Cast (Auto) (0-2) /lpf U Epithel Cells (Auto) (0-2) /hpf Urine Bacteria (Auto) (None Seen) Urine Osmolality (500-800) mOsm/kg Ur Random Creatinine mg/dl Ur Random Sodium mmol/L Ur Random Potassium mmol/L Ur Random Chloride mmol/L Fluid Neutrophils % % Fluid Lymphocytes % % Fluid Basophils % % Fluid Meso/Macro/Gregg % % Fluid Comment Pleural Fluid Source Pleural Color Pleural Appearance Pleural pH (7.3-7.4) Pleural WBC (Auto) /uL Pleural RBC (Auto) /uL Pleural Total Protein gm/dl Pleural LDH U/L Pleural Glucose mg/dl Pleural Amylase U/L Nasal Screen MRSA (PCR) (Negative) [place] Screen SS-A/Ro Antibody SS-B/La Antibody Sm ([place]) Antibody EMPLOYEE RELATIONS REPRESENTATIVE Antibody Scl-70 Scleroderma Ab Anti-ds DNA (Crithidia) Chromatin Antibody Anti-Centromere Ab Thyroid Antimicrosomal Anti-Cardiolipin IgG Ab Anti-Cardiolipin IgA Ab Anti-Cardiolipin IgM Ab Complement C3 Complement C4 Blood Type O Positive Antibody Screen NEGATIVE Crossmatch See Detail 12/01/24 12/01/24 11/30/24 Range/Units 03:21 00:53 19:01 WBC (4.8-10.8) K/ul RBC (4.70-6.10) M/uL Hgb (14.0-18.0) g/dl POC Hgb 7.5 L (14.0-18.0) g/dl Hct (42.0-52.0) % POC Hct 22 L (42-52) % MCV (80.0-100.0) fL MCH (25.0-34.0) pg MCHC (32.0-36.0) g/dL RDW Std Deviation (36.4-46.3) fL RDW Coeff of Jourdan (11.5-14.5) % Plt Count (130-400) K/uL MPV (9.4-12.4) fL Immature Gran % (Auto) % Neut % (Auto) % Lymph % (Auto) % Gregg % (Auto) % Eos % (Auto) % Baso % (Auto) % Neut # (Auto) (1.40-6.50) K/uL Lymph # (Auto) (1.20-3.40) K/uL Gregg # (Auto) (0.11-0.59) K/uL Eos # (Auto) (0.00-0.50) K/uL Baso # (Auto) (0.00-0.20) K/uL Immature Gran # (Auto) (0.01-0.20) K/uL Absolute Nucleated RBC (0.00-0.12) K/uL Nucleated RBC % (auto) % Dohle Bodies Polychromasia Hypochromasia Poikilocytosis Anisocytosis Target Cells Tear Drop Cells Haptoglobin PT (9.0-12.0) Seconds INR (0.9-1.1) Fibrinogen (184-400) mg/dl Factor VIII Activity (55 - 145) % Specimen Type Arterial Sample Site L Radial POC pH 7.40 (7.35-7.45) POC pCO2 31 L (35-46) mmHg POC pO2 102 H (80-95) mmHg POC HCO3 19 (19-24) deidra/L POC Total CO2 20 L (24-31) mmol/L POC Base Excess -6.0 (-9-1.8) deidra/L O2 Sat Pulse Oximetry 91 ABG pH (Temp Correct) 7.399 (7.35-7.45) ABG pCO2 (Temp Corrct 31 L (35-46) mmHg POC ABG pO2 at Pt Temp 102 POC ABG O2 Sat 98.0 H (90-95) % Rocael Test Pass O2 Delivery Device Ventilator Vent Mode AC POC FiO2 30 % End Tidal CO2 24 POC Sodium 141 (135-144) mmol/L Sodium (136-145) mmol/L POC Potassium 3.3 (3.3-5.0) mmol/L Potassium (3.5-5.1) mmol/L Chloride (98-107) mmol/L Carbon Dioxide (21-32) mmol/L Anion Gap (3-11) BUN (6-23) mg/dl Creatinine (0.6-1.4) mg/dl Est Cr Clr Drug Dosing ml/min eGFR BUN/Creatinine Ratio (10-20) Glucose (70-99(Fasting)) mg/dl POC Glucose (70-99) mg/dl POC Glucose (other) 232 H (70-99) mg/dl Estimat Average Glucose mg/dl Hemoglobin A1c (4.5-5.6) % Lactate (0.4-2.0) mmol/L Calcium (8.6-10.3) mg/dl Phosphorus (2.5-4.9) mg/dl Magnesium (1.7-2.4) mg/dl Unsaturated IBC (155-355) mcg/dl Total Bilirubin 1.6 H (0.2-1.0) mg/dl Direct Bilirubin (0-0.2) mg/dl AST (13-39) U/L ALT (7-52) U/L Alkaline Phosphatase (34-104) U/L Ammonia (18-72) umol/L Lactate Dehydrogenase 156 (86-244) U/L Total Protein 4.3 L (6.0-8.3) gm/dl Albumin 2.8 L (3.4-5.0) gm/dl Globulin (2.5-4.0) gm/dl Albumin/Globulin Ratio (0.9-2) Random Cortisol mcg/dl Urine Color Urine Appearance (Clear) Urine pH (4.5-7.5) Ur Specific [place] (1.000-1.030) Urine Protein (Negative) Urine Glucose (UA) (Negative) Urine Ketones (Negative) Urine Blood (Negative) Urine Nitrite (Negative) Urine Bilirubin (Negative) Urine Urobilinogen (Negative) Ur Leukocyte Esterase (Negative) Urine WBC (Auto) (0-5) /hpf Urine RBC (Auto) (0-2) /hpf U Hyaline Cast (Auto) (0-2) /lpf U Epithel Cells (Auto) (0-2) /hpf Urine Bacteria (Auto) (None Seen) Urine Osmolality (500-800) mOsm/kg Ur Random Creatinine mg/dl Ur Random Sodium mmol/L Ur Random Potassium mmol/L Ur Random Chloride mmol/L Fluid Neutrophils % % Fluid Lymphocytes % % Fluid Basophils % % Fluid Meso/Macro/Gregg % % Fluid Comment Pleural Fluid Source Pleural Color Pleural Appearance Pleural pH (7.3-7.4) Pleural WBC (Auto) /uL Pleural RBC (Auto) /uL Pleural Total Protein gm/dl Pleural LDH U/L Pleural Glucose mg/dl Pleural Amylase U/L Nasal Screen MRSA (PCR) (Negative) [place] Screen SS-A/Ro Antibody SS-B/La Antibody Sm ([place]) Antibody EMPLOYEE RELATIONS REPRESENTATIVE Antibody Scl-70 Scleroderma Ab Anti-ds DNA (Crithidia) Chromatin Antibody Anti-Centromere Ab Thyroid Antimicrosomal Anti-Cardiolipin IgG Ab Anti-Cardiolipin IgA Ab Anti-Cardiolipin IgM Ab Complement C3 Complement C4 Blood Type Antibody Screen Crossmatch 11/30/24 11/30/24 11/30/24 Range/Units 18:20 17:29 14:15 WBC (4.8-10.8) K/ul RBC (4.70-6.10) M/uL Hgb 7.4 L (14.0-18.0) g/dl POC Hgb (14.0-18.0) g/dl Hct 24.7 L (42.0-52.0) % POC Hct (42-52) % MCV (80.0-100.0) fL MCH (25.0-34.0) pg MCHC (32.0-36.0) g/dL RDW Std Deviation (36.4-46.3) fL RDW Coeff of Jourdan (11.5-14.5) % Plt Count (130-400) K/uL MPV (9.4-12.4) fL Immature Gran % (Auto) % Neut % (Auto) % Lymph % (Auto) % Gregg % (Auto) % Eos % (Auto) % Baso % (Auto) % Neut # (Auto) (1.40-6.50) K/uL Lymph # (Auto) (1.20-3.40) K/uL Gregg # (Auto) (0.11-0.59) K/uL Eos # (Auto) (0.00-0.50) K/uL Baso # (Auto) (0.00-0.20) K/uL Immature Gran # (Auto) (0.01-0.20) K/uL Absolute Nucleated RBC (0.00-0.12) K/uL Nucleated RBC % (auto) % Dohle Bodies Polychromasia Hypochromasia Poikilocytosis Anisocytosis Target Cells Tear Drop Cells Haptoglobin PT (9.0-12.0) Seconds INR (0.9-1.1) Fibrinogen (184-400) mg/dl Factor VIII Activity (55 - 145) % Specimen Type Sample Site POC pH (7.35-7.45) POC pCO2 (35-46) mmHg POC pO2 (80-95) mmHg POC HCO3 (19-24) deidra/L POC Total CO2 (24-31) mmol/L POC Base Excess (-9-1.8) deidra/L O2 Sat Pulse Oximetry ABG pH (Temp Correct) (7.35-7.45) ABG pCO2 (Temp Corrct (35-46) mmHg POC ABG pO2 at Pt Temp POC ABG O2 Sat (90-95) % Rocael Test O2 Delivery Device Vent Mode POC FiO2 % End Tidal CO2 POC Sodium (135-144) mmol/L Sodium 146 H (136-145) mmol/L POC Potassium (3.3-5.0) mmol/L Potassium 3.8 (3.5-5.1) mmol/L Chloride 116 H (98-107) mmol/L Carbon Dioxide 23 (21-32) mmol/L Anion Gap 7 (3-11) BUN 59 H (6-23) mg/dl Creatinine 2.19 H (0.6-1.4) mg/dl Est Cr Clr Drug Dosing 32.2 ml/min eGFR 33.22 BUN/Creatinine Ratio 26.9 H (10-20) Glucose 173 H (70-99(Fasting)) mg/dl POC Glucose (70-99) mg/dl POC Glucose (other) 184 H (70-99) mg/dl Estimat Average Glucose mg/dl Hemoglobin A1c (4.5-5.6) % Lactate (0.4-2.0) mmol/L Calcium 7.6 L (8.6-10.3) mg/dl Phosphorus (2.5-4.9) mg/dl Magnesium (1.7-2.4) mg/dl Unsaturated IBC (155-355) mcg/dl Total Bilirubin (0.2-1.0) mg/dl Direct Bilirubin (0-0.2) mg/dl AST (13-39) U/L ALT (7-52) U/L Alkaline Phosphatase (34-104) U/L Ammonia (18-72) umol/L Lactate Dehydrogenase (86-244) U/L Total Protein (6.0-8.3) gm/dl Albumin (3.4-5.0) gm/dl Globulin (2.5-4.0) gm/dl Albumin/Globulin Ratio (0.9-2) Random Cortisol mcg/dl Urine Color Urine Appearance (Clear) Urine pH (4.5-7.5) Ur Specific [place] (1.000-1.030) Urine Protein (Negative) Urine Glucose (UA) (Negative) Urine Ketones (Negative) Urine Blood (Negative) Urine Nitrite (Negative) Urine Bilirubin (Negative) Urine Urobilinogen (Negative) Ur Leukocyte Esterase (Negative) Urine WBC (Auto) (0-5) /hpf Urine RBC (Auto) (0-2) /hpf U Hyaline Cast (Auto) (0-2) /lpf U Epithel Cells (Auto) (0-2) /hpf Urine Bacteria (Auto) (None Seen) Urine Osmolality (500-800) mOsm/kg Ur Random Creatinine mg/dl Ur Random Sodium mmol/L Ur Random Potassium mmol/L Ur Random Chloride mmol/L Fluid Neutrophils % 44 % Fluid Lymphocytes % 9 % Fluid Basophils % 5 % Fluid Meso/Macro/Gregg % 42 % Fluid Comment Pleural Fluid Source Right Lung Pleural Color Yellow Pleural Appearance Clear Pleural pH 7.41 H (7.3-7.4) Pleural WBC (Auto) 73 /uL Pleural RBC (Auto) < 2000 /uL Pleural Total Protein < 3.0 gm/dl Pleural LDH 132 U/L Pleural Glucose 167 mg/dl Pleural Amylase 168 U/L Nasal Screen MRSA (PCR) (Negative) Y[place]QUELIN Screen SS-A/Ro Antibody SS-B/La Antibody Sm ([place]) Antibody EMPLOYEE RELATIONS REPRESENTATIVE Antibody Scl-70 Scleroderma Ab Anti-ds DNA (Crithidia) Chromatin Antibody Anti-Centromere Ab Thyroid Antimicrosomal Anti-Cardiolipin IgG Ab Anti-Cardiolipin IgA Ab Anti-Cardiolipin IgM Ab Complement C3 Complement C4 Blood Type Antibody Screen Crossmatch 11/30/24 11/30/24 11/30/24 Range/Units 12:20 04:26 03:53 WBC 18.39 H (4.8-10.8) K/ul RBC 3.53 L (4.70-6.10) M/uL Hgb 7.7 L (14.0-18.0) g/dl POC Hgb 8.5 L (14.0-18.0) g/dl Hct 26.5 L (42.0-52.0) % POC Hct 25 L (42-52) % MCV 75.1 L (80.0-100.0) fL MCH 21.8 L (25.0-34.0) pg MCHC 29.1 L (32.0-36.0) g/dL RDW Std Deviation (36.4-46.3) fL RDW Coeff of Jourdan (11.5-14.5) % Plt Count 118 L (130-400) K/uL MPV (9.4-12.4) fL Immature Gran % (Auto) 0.7 % Neut % (Auto) 87.8 % Lymph % (Auto) 6.5 % Gregg % (Auto) 4.3 % Eos % (Auto) 0.0 % Baso % (Auto) 0.7 % Neut # (Auto) 16.17 H (1.40-6.50) K/uL Lymph # (Auto) 1.19 L (1.20-3.40) K/uL Gregg # (Auto) 0.79 H (0.11-0.59) K/uL Eos # (Auto) 0.00 (0.00-0.50) K/uL Baso # (Auto) 0.12 (0.00-0.20) K/uL Immature Gran # (Auto) 0.12 (0.01-0.20) K/uL Absolute Nucleated RBC 0.31 H (0.00-0.12) K/uL Nucleated RBC % (auto) 1.7 % Dohle Bodies Polychromasia 2+ Hypochromasia Present Poikilocytosis Present Anisocytosis Present Target Cells Tear Drop Cells Haptoglobin PT 18.3 H (9.0-12.0) Seconds INR 1.8 H (0.9-1.1) Fibrinogen (184-400) mg/dl Factor VIII Activity (55 - 145) % Specimen Type Arterial Sample Site L Radial POC pH 7.31 L (7.35-7.45) POC pCO2 41 (35-46) mmHg POC pO2 110 H (80-95) mmHg POC HCO3 21 (19-24) deidra/L POC Total CO2 22 L (24-31) mmol/L POC Base Excess -5.0 (-9-1.8) deidra/L O2 Sat Pulse Oximetry 99 ABG pH (Temp Correct) 7.311 L (7.35-7.45) ABG pCO2 (Temp Corrct 41 (35-46) mmHg POC ABG pO2 at Pt Temp 109 POC ABG O2 Sat 98.0 H (90-95) % Rocael Test Pass O2 Delivery Device Ventilator Vent Mode AC POC FiO2 45 % End Tidal CO2 27 POC Sodium 150 H (135-144) mmol/L Sodium 150 H (136-145) mmol/L POC Potassium 4.0 (3.3-5.0) mmol/L Potassium 4.1 (3.5-5.1) mmol/L Chloride 118 H (98-107) mmol/L Carbon Dioxide 22 (21-32) mmol/L Anion Gap 10 (3-11) BUN 59 H (6-23) mg/dl Creatinine 2.33 H (0.6-1.4) mg/dl Est Cr Clr Drug Dosing 30.7 ml/min eGFR 30.84 BUN/Creatinine Ratio 25.3 H (10-20) Glucose 96 (70-99(Fasting)) mg/dl POC Glucose (70-99) mg/dl POC Glucose (other) 140 H (70-99) mg/dl Estimat Average Glucose mg/dl Hemoglobin A1c (4.5-5.6) % Lactate (0.4-2.0) mmol/L Calcium 8.0 L (8.6-10.3) mg/dl Phosphorus 5.8 H (2.5-4.9) mg/dl Magnesium 2.3 (1.7-2.4) mg/dl Unsaturated IBC (155-355) mcg/dl Total Bilirubin (0.2-1.0) mg/dl Direct Bilirubin (0-0.2) mg/dl AST (13-39) U/L ALT (7-52) U/L Alkaline Phosphatase (34-104) U/L Ammonia (18-72) umol/L Lactate Dehydrogenase (86-244) U/L Total Protein (6.0-8.3) gm/dl Albumin (3.4-5.0) gm/dl Globulin (2.5-4.0) gm/dl Albumin/Globulin Ratio (0.9-2) Random Cortisol mcg/dl Urine Color Urine Appearance (Clear) Urine pH (4.5-7.5) Ur Specific [place] (1.000-1.030) Urine Protein (Negative) Urine Glucose (UA) (Negative) Urine Ketones (Negative) Urine Blood (Negative) Urine Nitrite (Negative) Urine Bilirubin (Negative) Urine Urobilinogen (Negative) Ur Leukocyte Esterase (Negative) Urine WBC (Auto) (0-5) /hpf Urine RBC (Auto) (0-2) /hpf U Hyaline Cast (Auto) (0-2) /lpf U Epithel Cells (Auto) (0-2) /hpf Urine Bacteria (Auto) (None Seen) Urine Osmolality (500-800) mOsm/kg Ur Random Creatinine mg/dl Ur Random Sodium mmol/L Ur Random Potassium mmol/L Ur Random Chloride mmol/L Fluid Neutrophils % % Fluid Lymphocytes % % Fluid Basophils % % Fluid Meso/Macro/Gregg % % Fluid Comment Pleural Fluid Source Pleural Color Pleural Appearance Pleural pH (7.3-7.4) Pleural WBC (Auto) /uL Pleural RBC (Auto) /uL Pleural Total Protein gm/dl Pleural LDH U/L Pleural Glucose mg/dl Pleural Amylase U/L Nasal Screen MRSA (PCR) (Negative) [place] Screen SS-A/Ro Antibody SS-B/La Antibody Sm ([place]) Antibody EMPLOYEE RELATIONS REPRESENTATIVE Antibody Scl-70 Scleroderma Ab Anti-ds DNA (Crithidia) Chromatin Antibody Anti-Centromere Ab Thyroid Antimicrosomal Anti-Cardiolipin IgG Ab Anti-Cardiolipin IgA Ab Anti-Cardiolipin IgM Ab Complement C3 Complement C4 Blood Type Antibody Screen Crossmatch 11/29/24 11/29/24 11/29/24 Range/Units Unknown 20:24 18:14 WBC 17.69 H (4.8-10.8) K/ul RBC 3.66 L (4.70-6.10) M/uL Hgb 8.2 L (14.0-18.0) g/dl POC Hgb (14.0-18.0) g/dl Hct 27.4 L (42.0-52.0) % POC Hct (42-52) % MCV 74.9 L (80.0-100.0) fL MCH 22.4 L (25.0-34.0) pg MCHC 29.9 L (32.0-36.0) g/dL RDW Std Deviation 74.7 H (36.4-46.3) fL RDW Coeff of Jourdan 28.8 H (11.5-14.5) % Plt Count 146 (130-400) K/uL MPV (9.4-12.4) fL Immature Gran % (Auto) % Neut % (Auto) % Lymph % (Auto) % Gregg % (Auto) % Eos % (Auto) % Baso % (Auto) % Neut # (Auto) (1.40-6.50) K/uL Lymph # (Auto) (1.20-3.40) K/uL Gregg # (Auto) (0.11-0.59) K/uL Eos # (Auto) (0.00-0.50) K/uL Baso # (Auto) (0.00-0.20) K/uL Immature Gran # (Auto) (0.01-0.20) K/uL Absolute Nucleated RBC 0.46 H (0.00-0.12) K/uL Nucleated RBC % (auto) 2.6 % Dohle Bodies Polychromasia Hypochromasia Poikilocytosis Anisocytosis Target Cells Tear Drop Cells Haptoglobin PT (9.0-12.0) Seconds INR (0.9-1.1) Fibrinogen (184-400) mg/dl Factor VIII Activity (55 - 145) % Specimen Type Sample Site POC pH (7.35-7.45) POC pCO2 (35-46) mmHg POC pO2 (80-95) mmHg POC HCO3 (19-24) deidra/L POC Total CO2 (24-31) mmol/L POC Base Excess (-9-1.8) deidra/L O2 Sat Pulse Oximetry ABG pH (Temp Correct) (7.35-7.45) ABG pCO2 (Temp Corrct (35-46) mmHg POC ABG pO2 at Pt Temp POC ABG O2 Sat (90-95) % Rocael Test O2 Delivery Device Vent Mode POC FiO2 % End Tidal CO2 POC Sodium (135-144) mmol/L Sodium (136-145) mmol/L POC Potassium (3.3-5.0) mmol/L Potassium (3.5-5.1) mmol/L Chloride (98-107) mmol/L Carbon Dioxide (21-32) mmol/L Anion Gap (3-11) BUN (6-23) mg/dl Creatinine (0.6-1.4) mg/dl Est Cr Clr Drug Dosing ml/min eGFR BUN/Creatinine Ratio (10-20) Glucose (70-99(Fasting)) mg/dl POC Glucose (70-99) mg/dl POC Glucose (other) (70-99) mg/dl Estimat Average Glucose mg/dl Hemoglobin A1c (4.5-5.6) % Lactate 1.3 (0.4-2.0) mmol/L Calcium (8.6-10.3) mg/dl Phosphorus (2.5-4.9) mg/dl Magnesium (1.7-2.4) mg/dl Unsaturated IBC (155-355) mcg/dl Total Bilirubin (0.2-1.0) mg/dl Direct Bilirubin (0-0.2) mg/dl AST (13-39) U/L ALT (7-52) U/L Alkaline Phosphatase (34-104) U/L Ammonia 35.0 (18-72) umol/L Lactate Dehydrogenase (86-244) U/L Total Protein (6.0-8.3) gm/dl Albumin (3.4-5.0) gm/dl Globulin (2.5-4.0) gm/dl Albumin/Globulin Ratio (0.9-2) Random Cortisol mcg/dl Urine Color Urine Appearance (Clear) Urine pH (4.5-7.5) Ur Specific [place] (1.000-1.030) Urine Protein (Negative) Urine Glucose (UA) (Negative) Urine Ketones (Negative) Urine Blood (Negative) Urine Nitrite (Negative) Urine Bilirubin (Negative) Urine Urobilinogen (Negative) Ur Leukocyte Esterase (Negative) Urine WBC (Auto) (0-5) /hpf Urine RBC (Auto) (0-2) /hpf U Hyaline Cast (Auto) (0-2) /lpf U Epithel Cells (Auto) (0-2) /hpf Urine Bacteria (Auto) (None Seen) Urine Osmolality (500-800) mOsm/kg Ur Random Creatinine mg/dl Ur Random Sodium mmol/L Ur Random Potassium mmol/L Ur Random Chloride mmol/L Fluid Neutrophils % % Fluid Lymphocytes % % Fluid Basophils % % Fluid Meso/Macro/Gregg % % Fluid Comment Pleural Fluid Source Pleural Color Pleural Appearance Pleural pH (7.3-7.4) Pleural WBC (Auto) /uL Pleural RBC (Auto) /uL Pleural Total Protein gm/dl Pleural LDH U/L Pleural Glucose mg/dl Pleural Amylase U/L Nasal Screen MRSA (PCR) Uninterpretable (Negative) Y[place]QUELIN Screen SS-A/Ro Antibody SS-B/La Antibody Sm ([place]) Antibody EMPLOYEE RELATIONS REPRESENTATIVE Antibody Scl-70 Scleroderma Ab Anti-ds DNA (Crithidia) Chromatin Antibody Anti-Centromere Ab Thyroid Antimicrosomal Anti-Cardiolipin IgG Ab Anti-Cardiolipin IgA Ab Anti-Cardiolipin IgM Ab Complement C3 Complement C4 Blood Type Antibody Screen Crossmatch 11/29/24 11/29/24 11/29/24 Range/Units 17:48 17:45 16:27 WBC 20.99 H (4.8-10.8) K/ul RBC 3.80 L (4.70-6.10) M/uL Hgb 8.4 L (14.0-18.0) g/dl POC Hgb 9.2 L 10.5 L (14.0-18.0) g/dl Hct 29.3 L (42.0-52.0) % POC Hct 27 L 31 L (42-52) % MCV 77.1 L (80.0-100.0) fL MCH 22.1 L (25.0-34.0) pg MCHC 28.7 L (32.0-36.0) g/dL RDW Std Deviation 76.4 H (36.4-46.3) fL RDW Coeff of Jourdan 28.4 H (11.5-14.5) % Plt Count 169 (130-400) K/uL MPV (9.4-12.4) fL Immature Gran % (Auto) % Neut % (Auto) % Lymph % (Auto) % Gregg % (Auto) % Eos % (Auto) % Baso % (Auto) % Neut # (Auto) (1.40-6.50) K/uL Lymph # (Auto) (1.20-3.40) K/uL Gregg # (Auto) (0.11-0.59) K/uL Eos # (Auto) (0.00-0.50) K/uL Baso # (Auto) (0.00-0.20) K/uL Immature Gran # (Auto) (0.01-0.20) K/uL Absolute Nucleated RBC 0.66 H (0.00-0.12) K/uL Nucleated RBC % (auto) 3.1 % Dohle Bodies Polychromasia Hypochromasia Poikilocytosis Anisocytosis Target Cells Tear Drop Cells Haptoglobin PT (9.0-12.0) Seconds INR (0.9-1.1) Fibrinogen (184-400) mg/dl Factor VIII Activity (55 - 145) % Specimen Type Arterial Arterial Sample Site Art Line POC pH 7.21 L 7.20 L (7.35-7.45) POC pCO2 46 41 (35-46) mmHg POC pO2 274 H 132 H (80-95) mmHg POC HCO3 18 L 16 L (19-24) deidra/L POC Total CO2 20 L 17 L (24-31) mmol/L POC Base Excess -9.0 -12.0 L (-9-1.8) deidra/L O2 Sat Pulse Oximetry ABG pH (Temp Correct) 7.222 L (7.35-7.45) ABG pCO2 (Temp Corrct 44 (35-46) mmHg POC ABG pO2 at Pt Temp 270 POC ABG O2 Sat 100.0 H 98.0 H (90-95) % Rocael Test NA O2 Delivery Device Ventilator Vent Mode AC POC FiO2 100 % End Tidal CO2 31 POC Sodium 147 H 145 H (135-144) mmol/L Sodium 147 H (136-145) mmol/L POC Potassium 4.3 4.7 (3.3-5.0) mmol/L Potassium 4.5 (3.5-5.1) mmol/L Chloride 118 H (98-107) mmol/L Carbon Dioxide 18 L (21-32) mmol/L Anion Gap 11 (3-11) BUN 56 H (6-23) mg/dl Creatinine 2.37 H D (0.6-1.4) mg/dl Est Cr Clr Drug Dosing 30.2 ml/min eGFR 30.21 BUN/Creatinine Ratio 23.6 H (10-20) Glucose 109 H (70-99(Fasting)) mg/dl POC Glucose (70-99) mg/dl POC Glucose (other) (70-99) mg/dl Estimat Average Glucose mg/dl Hemoglobin A1c (4.5-5.6) % Lactate (0.4-2.0) mmol/L Calcium 8.2 L (8.6-10.3) mg/dl Phosphorus (2.5-4.9) mg/dl Magnesium (1.7-2.4) mg/dl Unsaturated IBC (155-355) mcg/dl Total Bilirubin 2.6 H (0.2-1.0) mg/dl Direct Bilirubin (0-0.2) mg/dl AST 25 (13-39) U/L ALT 22 (7-52) U/L Alkaline Phosphatase 32 L (34-104) U/L Ammonia (18-72) umol/L Lactate Dehydrogenase (86-244) U/L Total Protein 4.7 L D (6.0-8.3) gm/dl Albumin 3.4 (3.4-5.0) gm/dl Globulin 1.3 L (2.5-4.0) gm/dl Albumin/Globulin Ratio 2.6 H (0.9-2) Random Cortisol mcg/dl Urine Color Urine Appearance (Clear) Urine pH (4.5-7.5) Ur Specific [place] (1.000-1.030) Urine Protein (Negative) Urine Glucose (UA) (Negative) Urine Ketones (Negative) Urine Blood (Negative) Urine Nitrite (Negative) Urine Bilirubin (Negative) Urine Urobilinogen (Negative) Ur Leukocyte Esterase (Negative) Urine WBC (Auto) (0-5) /hpf Urine RBC (Auto) (0-2) /hpf U Hyaline Cast (Auto) (0-2) /lpf U Epithel Cells (Auto) (0-2) /hpf Urine Bacteria (Auto) (None Seen) Urine Osmolality (500-800) mOsm/kg Ur Random Creatinine mg/dl Ur Random Sodium mmol/L Ur Random Potassium mmol/L Ur Random Chloride mmol/L Fluid Neutrophils % % Fluid Lymphocytes % % Fluid Basophils % % Fluid Meso/Macro/Gregg % % Fluid Comment Pleural Fluid Source Pleural Color Pleural Appearance Pleural pH (7.3-7.4) Pleural WBC (Auto) /uL Pleural RBC (Auto) /uL Pleural Total Protein gm/dl Pleural LDH U/L Pleural Glucose mg/dl Pleural Amylase U/L Nasal Screen MRSA (PCR) (Negative) [place]QUELIN Screen SS-A/Ro Antibody SS-B/La Antibody Sm ([place]) Antibody EMPLOYEE RELATIONS REPRESENTATIVE Antibody Scl-70 Scleroderma Ab Anti-ds DNA (Crithidia) Chromatin Antibody Anti-Centromere Ab Thyroid Antimicrosomal Anti-Cardiolipin IgG Ab Anti-Cardiolipin IgA Ab Anti-Cardiolipin IgM Ab Complement C3 Complement C4 Blood Type Antibody Screen Crossmatch 11/29/24 11/29/24 11/29/24 Range/Units 15:01 09:03 03:36 WBC 25.54 H (4.8-10.8) K/ul RBC 4.00 L (4.70-6.10) M/uL Hgb 8.3 L (14.0-18.0) g/dl POC Hgb (14.0-18.0) g/dl Hct 29.9 L (42.0-52.0) % POC Hct (42-52) % MCV 74.8 L (80.0-100.0) fL MCH 20.8 L (25.0-34.0) pg MCHC 27.8 L (32.0-36.0) g/dL RDW Std Deviation 76.1 H (36.4-46.3) fL RDW Coeff of Jourdan 29.2 H (11.5-14.5) % Plt Count 220 (130-400) K/uL MPV 10.1 (9.4-12.4) fL Immature Gran % (Auto) % Neut % (Auto) % Lymph % (Auto) % Gregg % (Auto) % Eos % (Auto) % Baso % (Auto) % Neut # (Auto) (1.40-6.50) K/uL Lymph # (Auto) (1.20-3.40) K/uL Gregg # (Auto) (0.11-0.59) K/uL Eos # (Auto) (0.00-0.50) K/uL Baso # (Auto) (0.00-0.20) K/uL Immature Gran # (Auto) (0.01-0.20) K/uL Absolute Nucleated RBC 1.60 H (0.00-0.12) K/uL Nucleated RBC % (auto) 6.3 % Dohle Bodies Polychromasia Hypochromasia Poikilocytosis Anisocytosis Target Cells Tear Drop Cells Haptoglobin PT (9.0-12.0) Seconds INR (0.9-1.1) Fibrinogen (184-400) mg/dl Factor VIII Activity (55 - 145) % Specimen Type Sample Site POC pH (7.35-7.45) POC pCO2 (35-46) mmHg POC pO2 (80-95) mmHg POC HCO3 (19-24) deidra/L POC Total CO2 (24-31) mmol/L POC Base Excess (-9-1.8) deidra/L O2 Sat Pulse Oximetry ABG pH (Temp Correct) (7.35-7.45) ABG pCO2 (Temp Corrct (35-46) mmHg POC ABG pO2 at Pt Temp POC ABG O2 Sat (90-95) % Rocael Test O2 Delivery Device Vent Mode POC FiO2 % End Tidal CO2 POC Sodium (135-144) mmol/L Sodium (136-145) mmol/L POC Potassium (3.3-5.0) mmol/L Potassium (3.5-5.1) mmol/L Chloride (98-107) mmol/L Carbon Dioxide (21-32) mmol/L Anion Gap (3-11) BUN (6-23) mg/dl Creatinine (0.6-1.4) mg/dl Est Cr Clr Drug Dosing ml/min eGFR BUN/Creatinine Ratio (10-20) Glucose (70-99(Fasting)) mg/dl POC Glucose (70-99) mg/dl POC Glucose (other) (70-99) mg/dl Estimat Average Glucose mg/dl Hemoglobin A1c (4.5-5.6) % Lactate (0.4-2.0) mmol/L Calcium (8.6-10.3) mg/dl Phosphorus (2.5-4.9) mg/dl Magnesium (1.7-2.4) mg/dl Unsaturated IBC (155-355) mcg/dl Total Bilirubin (0.2-1.0) mg/dl Direct Bilirubin (0-0.2) mg/dl AST (13-39) U/L ALT (7-52) U/L Alkaline Phosphatase (34-104) U/L Ammonia (18-72) umol/L Lactate Dehydrogenase (86-244) U/L Total Protein (6.0-8.3) gm/dl Albumin Cancelled (3.4-5.0) gm/dl Globulin (2.5-4.0) gm/dl Albumin/Globulin Ratio (0.9-2) Random Cortisol mcg/dl Urine Color [place] Urine Appearance Cloudy A (Clear) Urine pH 5.5 (4.5-7.5) Ur Specific [place] 1.004 (1.000-1.030) Urine Protein 1+ H (Negative) Urine Glucose (UA) Negative (Negative) Urine Ketones Negative (Negative) Urine Blood 3+ H (Negative) Urine Nitrite Negative (Negative) Urine Bilirubin Negative (Negative) Urine Urobilinogen Negative (Negative) Ur Leukocyte Esterase 1+ H (Negative) Urine WBC (Auto) 11-20 H (0-5) /hpf Urine RBC (Auto) 6-10 H (0-2) /hpf U Hyaline Cast (Auto) 3-5 H (0-2) /lpf U Epithel Cells (Auto) 6-10 H (0-2) /hpf Urine Bacteria (Auto) None Seen (None Seen) Urine Osmolality 83 L (500-800) mOsm/kg Ur Random Creatinine 3.9 mg/dl Ur Random Sodium 36 mmol/L Ur Random Potassium < 2.0 mmol/L Ur Random Chloride 36 mmol/L Fluid Neutrophils % % Fluid Lymphocytes % % Fluid Basophils % % Fluid Meso/Macro/Gregg % % Fluid Comment Pleural Fluid Source Pleural Color Pleural Appearance Pleural pH (7.3-7.4) Pleural WBC (Auto) /uL Pleural RBC (Auto) /uL Pleural Total Protein gm/dl Pleural LDH U/L Pleural Glucose mg/dl Pleural Amylase U/L Nasal Screen MRSA (PCR) (Negative) [place] Screen SS-A/Ro Antibody SS-B/La Antibody Sm ([place]) Antibody EMPLOYEE RELATIONS REPRESENTATIVE Antibody Scl-70 Scleroderma Ab Anti-ds DNA (Crithidia) Chromatin Antibody Anti-Centromere Ab Thyroid Antimicrosomal Anti-Cardiolipin IgG Ab Anti-Cardiolipin IgA Ab Anti-Cardiolipin IgM Ab Complement C3 Complement C4 Blood Type Antibody Screen Crossmatch 11/29/24 11/29/24 11/29/24 Range/Units 03:36 03:36 03:36 WBC (4.8-10.8) K/ul RBC (4.70-6.10) M/uL Hgb (14.0-18.0) g/dl POC Hgb (14.0-18.0) g/dl Hct (42.0-52.0) % POC Hct (42-52) % MCV (80.0-100.0) fL MCH (25.0-34.0) pg MCHC (32.0-36.0) g/dL RDW Std Deviation (36.4-46.3) fL RDW Coeff of Jourdan (11.5-14.5) % Plt Count (130-400) K/uL MPV (9.4-12.4) fL Immature Gran % (Auto) % Neut % (Auto) % Lymph % (Auto) % Gregg % (Auto) % Eos % (Auto) % Baso % (Auto) % Neut # (Auto) (1.40-6.50) K/uL Lymph # (Auto) (1.20-3.40) K/uL Gregg # (Auto) (0.11-0.59) K/uL Eos # (Auto) (0.00-0.50) K/uL Baso # (Auto) (0.00-0.20) K/uL Immature Gran # (Auto) (0.01-0.20) K/uL Absolute Nucleated RBC (0.00-0.12) K/uL Nucleated RBC % (auto) % Dohle Bodies Polychromasia Hypochromasia Poikilocytosis Anisocytosis Target Cells Tear Drop Cells Haptoglobin PT (9.0-12.0) Seconds INR (0.9-1.1) Fibrinogen (184-400) mg/dl Factor VIII Activity (55 - 145) % Specimen Type Sample Site POC pH (7.35-7.45) POC pCO2 (35-46) mmHg POC pO2 (80-95) mmHg POC HCO3 (19-24) deidra/L POC Total CO2 (24-31) mmol/L POC Base Excess (-9-1.8) deidra/L O2 Sat Pulse Oximetry ABG pH (Temp Correct) (7.35-7.45) ABG pCO2 (Temp Corrct (35-46) mmHg POC ABG pO2 at Pt Temp POC ABG O2 Sat (90-95) % Rocael Test O2 Delivery Device Vent Mode POC FiO2 % End Tidal CO2 POC Sodium (135-144) mmol/L Sodium (136-145) mmol/L POC Potassium (3.3-5.0) mmol/L Potassium (3.5-5.1) mmol/L Chloride (98-107) mmol/L Carbon Dioxide (21-32) mmol/L Anion Gap (3-11) BUN (6-23) mg/dl Creatinine (0.6-1.4) mg/dl Est Cr Clr Drug Dosing ml/min eGFR BUN/Creatinine Ratio (10-20) Glucose (70-99(Fasting)) mg/dl POC Glucose (70-99) mg/dl POC Glucose (other) (70-99) mg/dl Estimat Average Glucose mg/dl Hemoglobin A1c (4.5-5.6) % Lactate (0.4-2.0) mmol/L Calcium (8.6-10.3) mg/dl Phosphorus (2.5-4.9) mg/dl Magnesium (1.7-2.4) mg/dl Unsaturated IBC (155-355) mcg/dl Total Bilirubin (0.2-1.0) mg/dl Direct Bilirubin (0-0.2) mg/dl AST (13-39) U/L ALT Cancelled (7-52) U/L Alkaline Phosphatase Cancelled 30 L (34-104) U/L Ammonia (18-72) umol/L Lactate Dehydrogenase (86-244) U/L Total Protein Cancelled 5.8 L (6.0-8.3) gm/dl Albumin 4.0 (3.4-5.0) gm/dl Globulin (2.5-4.0) gm/dl Albumin/Globulin Ratio (0.9-2) Random Cortisol mcg/dl Urine Color Urine Appearance (Clear) Urine pH (4.5-7.5) Ur Specific [place] (1.000-1.030) Urine Protein (Negative) Urine Glucose (UA) (Negative) Urine Ketones (Negative) Urine Blood (Negative) Urine Nitrite (Negative) Urine Bilirubin (Negative) Urine Urobilinogen (Negative) Ur Leukocyte Esterase (Negative) Urine WBC (Auto) (0-5) /hpf Urine RBC (Auto) (0-2) /hpf U Hyaline Cast (Auto) (0-2) /lpf U Epithel Cells (Auto) (0-2) /hpf Urine Bacteria (Auto) (None Seen) Urine Osmolality (500-800) mOsm/kg Ur Random Creatinine mg/dl Ur Random Sodium mmol/L Ur Random Potassium mmol/L Ur Random Chloride mmol/L Fluid Neutrophils % % Fluid Lymphocytes % % Fluid Basophils % % Fluid Meso/Macro/Gregg % % Fluid Comment Pleural Fluid Source Pleural Color Pleural Appearance Pleural pH (7.3-7.4) Pleural WBC (Auto) /uL Pleural RBC (Auto) /uL Pleural Total Protein gm/dl Pleural LDH U/L Pleural Glucose mg/dl Pleural Amylase U/L Nasal Screen MRSA (PCR) (Negative) [place]IN Screen SS-A/Ro Antibody SS-B/La Antibody Sm ([place]) Antibody EMPLOYEE RELATIONS REPRESENTATIVE Antibody Scl-70 Scleroderma Ab Anti-ds DNA (Crithidia) Chromatin Antibody Anti-Centromere Ab Thyroid Antimicrosomal Anti-Cardiolipin IgG Ab Anti-Cardiolipin IgA Ab Anti-Cardiolipin IgM Ab Complement C3 Complement C4 Blood Type Antibody Screen Crossmatch 11/29/24 11/29/24 11/29/24 Range/Units 03:36 03:36 03:36 WBC (4.8-10.8) K/ul RBC (4.70-6.10) M/uL Hgb (14.0-18.0) g/dl POC Hgb (14.0-18.0) g/dl Hct (42.0-52.0) % POC Hct (42-52) % MCV (80.0-100.0) fL MCH (25.0-34.0) pg MCHC (32.0-36.0) g/dL RDW Std Deviation (36.4-46.3) fL RDW Coeff of Jourdan (11.5-14.5) % Plt Count (130-400) K/uL MPV (9.4-12.4) fL Immature Gran % (Auto) % Neut % (Auto) % Lymph % (Auto) % Gregg % (Auto) % Eos % (Auto) % Baso % (Auto) % Neut # (Auto) (1.40-6.50) K/uL Lymph # (Auto) (1.20-3.40) K/uL Gregg # (Auto) (0.11-0.59) K/uL Eos # (Auto) (0.00-0.50) K/uL Baso # (Auto) (0.00-0.20) K/uL Immature Gran # (Auto) (0.01-0.20) K/uL Absolute Nucleated RBC (0.00-0.12) K/uL Nucleated RBC % (auto) % Dohle Bodies Polychromasia Hypochromasia Poikilocytosis Anisocytosis Target Cells Tear Drop Cells Haptoglobin PT (9.0-12.0) Seconds INR (0.9-1.1) Fibrinogen (184-400) mg/dl Factor VIII Activity (55 - 145) % Specimen Type Sample Site POC pH (7.35-7.45) POC pCO2 (35-46) mmHg POC pO2 (80-95) mmHg POC HCO3 (19-24) deidra/L POC Total CO2 (24-31) mmol/L POC Base Excess (-9-1.8) deidra/L O2 Sat Pulse Oximetry ABG pH (Temp Correct) (7.35-7.45) ABG pCO2 (Temp Corrct (35-46) mmHg POC ABG pO2 at Pt Temp POC ABG O2 Sat (90-95) % Rocael Test O2 Delivery Device Vent Mode POC FiO2 % End Tidal CO2 POC Sodium (135-144) mmol/L Sodium (136-145) mmol/L POC Potassium (3.3-5.0) mmol/L Potassium (3.5-5.1) mmol/L Chloride (98-107) mmol/L Carbon Dioxide (21-32) mmol/L Anion Gap (3-11) BUN (6-23) mg/dl Creatinine (0.6-1.4) mg/dl Est Cr Clr Drug Dosing ml/min eGFR BUN/Creatinine Ratio (10-20) Glucose (70-99(Fasting)) mg/dl POC Glucose (70-99) mg/dl POC Glucose (other) (70-99) mg/dl Estimat Average Glucose mg/dl Hemoglobin A1c (4.5-5.6) % Lactate (0.4-2.0) mmol/L Calcium (8.6-10.3) mg/dl Phosphorus (2.5-4.9) mg/dl Magnesium (1.7-2.4) mg/dl Unsaturated IBC (155-355) mcg/dl Total Bilirubin Cancelled (0.2-1.0) mg/dl Direct Bilirubin Cancelled 1.6 H (0-0.2) mg/dl AST Cancelled 33 (13-39) U/L ALT 28 (7-52) U/L Alkaline Phosphatase (34-104) U/L Ammonia (18-72) umol/L Lactate Dehydrogenase (86-244) U/L Total Protein (6.0-8.3) gm/dl Albumin (3.4-5.0) gm/dl Globulin (2.5-4.0) gm/dl Albumin/Globulin Ratio (0.9-2) Random Cortisol mcg/dl Urine Color Urine Appearance (Clear) Urine pH (4.5-7.5) Ur Specific [place] (1.000-1.030) Urine Protein (Negative) Urine Glucose (UA) (Negative) Urine Ketones (Negative) Urine Blood (Negative) Urine Nitrite (Negative) Urine Bilirubin (Negative) Urine Urobilinogen (Negative) Ur Leukocyte Esterase (Negative) Urine WBC (Auto) (0-5) /hpf Urine RBC (Auto) (0-2) /hpf U Hyaline Cast (Auto) (0-2) /lpf U Epithel Cells (Auto) (0-2) /hpf Urine Bacteria (Auto) (None Seen) Urine Osmolality (500-800) mOsm/kg Ur Random Creatinine mg/dl Ur Random Sodium mmol/L Ur Random Potassium mmol/L Ur Random Chloride mmol/L Fluid Neutrophils % % Fluid Lymphocytes % % Fluid Basophils % % Fluid Meso/Macro/Gregg % % Fluid Comment Pleural Fluid Source Pleural Color Pleural Appearance Pleural pH (7.3-7.4) Pleural WBC (Auto) /uL Pleural RBC (Auto) /uL Pleural Total Protein gm/dl Pleural LDH U/L Pleural Glucose mg/dl Pleural Amylase U/L Nasal Screen MRSA (PCR) (Negative) [place] Screen SS-A/Ro Antibody SS-B/La Antibody Sm ([place]) Antibody EMPLOYEE RELATIONS REPRESENTATIVE Antibody Scl-70 Scleroderma Ab Anti-ds DNA (Crithidia) Chromatin Antibody Anti-Centromere Ab Thyroid Antimicrosomal Anti-Cardiolipin IgG Ab Anti-Cardiolipin IgA Ab Anti-Cardiolipin IgM Ab Complement C3 Complement C4 Blood Type Antibody Screen Crossmatch 11/29/24 11/29/24 11/28/24 Range/Units 03:36 01:01 20:29 WBC 18.79 H 17.23 H 14.88 H (4.8-10.8) K/ul RBC 3.50 L 3.37 L 3.47 L (4.70-6.10) M/uL Hgb 7.3 L 7.3 L 7.6 L (14.0-18.0) g/dl POC Hgb (14.0-18.0) g/dl Hct 26.3 L 25.7 L 26.5 L (42.0-52.0) % POC Hct (42-52) % MCV 75.1 L 76.3 L 76.4 L (80.0-100.0) fL MCH 20.9 L 21.7 L 21.9 L (25.0-34.0) pg MCHC 27.8 L 28.4 L 28.7 L (32.0-36.0) g/dL RDW Std Deviation 74.9 H 76.1 H (36.4-46.3) fL RDW Coeff of Jourdan 28.8 H 29.1 H (11.5-14.5) % Plt Count 236 229 254 (130-400) K/uL MPV 10.3 9.8 10.2 (9.4-12.4) fL Immature Gran % (Auto) 2.2 % Neut % (Auto) 85.5 % Lymph % (Auto) 6.9 % [place]gg % (Auto) 4.7 % Eos % (Auto) 0.0 % Baso % (Auto) 0.7 % Neut # (Auto) 16.05 H (1.40-6.50) K/uL Lymph # (Auto) 1.30 (1.20-3.40) K/uL [place] # (Auto) 0.89 H (0.11-0.59) K/uL Eos # (Auto) 0.00 (0.00-0.50) K/uL Baso # (Auto) 0.14 (0.00-0.20) K/uL Immature Gran # (Auto) 0.41 H (0.01-0.20) K/uL Absolute Nucleated RBC 2.99 H 4.05 H 0.96 H (0.00-0.12) K/uL Nucleated RBC % (auto) 15.9 23.5 6.5 % Dohle Bodies Polychromasia 1+ Hypochromasia Present Poikilocytosis Present Anisocytosis Present Target Cells Tear Drop Cells Haptoglobin PT (9.0-12.0) Seconds INR (0.9-1.1) Fibrinogen (184-400) mg/dl Factor VIII Activity (55 - 145) % Specimen Type Sample Site POC pH (7.35-7.45) POC pCO2 (35-46) mmHg POC pO2 (80-95) mmHg POC HCO3 (19-24) deidra/L POC Total CO2 (24-31) mmol/L POC Base Excess (-9-1.8) deidra/L O2 Sat Pulse Oximetry ABG pH (Temp Correct) (7.35-7.45) ABG pCO2 (Temp Corrct (35-46) mmHg POC ABG pO2 at Pt Temp POC ABG O2 Sat (90-95) % Rocael Test O2 Delivery Device Vent Mode POC FiO2 % End Tidal CO2 POC Sodium (135-144) mmol/L Sodium 144 (136-145) mmol/L POC Potassium (3.3-5.0) mmol/L Potassium 4.8 D (3.5-5.1) mmol/L Chloride 115 H (98-107) mmol/L Carbon Dioxide 19 L (21-32) mmol/L Anion Gap 10 (3-11) BUN 47 H (6-23) mg/dl Creatinine 2.01 H D (0.6-1.4) mg/dl Est Cr Clr Drug Dosing 35.8 ml/min eGFR 36.82 BUN/Creatinine Ratio 23.4 H (10-20) Glucose 88 (70-99(Fasting)) mg/dl POC Glucose (70-99) mg/dl POC Glucose (other) (70-99) mg/dl Estimat Average Glucose mg/dl Hemoglobin A1c (4.5-5.6) % Lactate (0.4-2.0) mmol/L Calcium 7.9 L (8.6-10.3) mg/dl Phosphorus (2.5-4.9) mg/dl Magnesium (1.7-2.4) mg/dl Unsaturated IBC (155-355) mcg/dl Total Bilirubin 2.5 H (0.2-1.0) mg/dl Direct Bilirubin (0-0.2) mg/dl AST (13-39) U/L ALT (7-52) U/L Alkaline Phosphatase (34-104) U/L Ammonia (18-72) umol/L Lactate Dehydrogenase (86-244) U/L Total Protein (6.0-8.3) gm/dl Albumin (3.4-5.0) gm/dl Globulin (2.5-4.0) gm/dl Albumin/Globulin Ratio (0.9-2) Random Cortisol > 60.00 mcg/dl Urine Color Urine Appearance (Clear) Urine pH (4.5-7.5) Ur Specific [place] (1.000-1.030) Urine Protein (Negative) Urine Glucose (UA) (Negative) Urine Ketones (Negative) Urine Blood (Negative) Urine Nitrite (Negative) Urine Bilirubin (Negative) Urine Urobilinogen (Negative) Ur Leukocyte Esterase (Negative) Urine WBC (Auto) (0-5) /hpf Urine RBC (Auto) (0-2) /hpf U Hyaline Cast (Auto) (0-2) /lpf U Epithel Cells (Auto) (0-2) /hpf Urine Bacteria (Auto) (None Seen) Urine Osmolality (500-800) mOsm/kg Ur Random Creatinine mg/dl Ur Random Sodium mmol/L Ur Random Potassium mmol/L Ur Random Chloride mmol/L Fluid Neutrophils % % Fluid Lymphocytes % % Fluid Basophils % % Fluid Meso/Macro/Gregg % % Fluid Comment Pleural Fluid Source Pleural Color Pleural Appearance Pleural pH (7.3-7.4) Pleural WBC (Auto) /uL Pleural RBC (Auto) /uL Pleural Total Protein gm/dl Pleural LDH U/L Pleural Glucose mg/dl Pleural Amylase U/L Nasal Screen MRSA (PCR) (Negative) YAQUELIN Screen SS-A/Ro Antibody SS-B/La Antibody Sm ([place]) Antibody EMPLOYEE RELATIONS REPRESENTATIVE Antibody Scl-70 Scleroderma Ab Anti-ds DNA (Crithidia) Chromatin Antibody Anti-Centromere Ab Thyroid Antimicrosomal Anti-Cardiolipin IgG Ab Anti-Cardiolipin IgA Ab Anti-Cardiolipin IgM Ab Complement C3 Complement C4 Blood Type Antibody Screen Crossmatch 11/27/24 Range/Units 14:38 WBC (4.8-10.8) K/ul RBC (4.70-6.10) M/uL Hgb (14.0-18.0) g/dl POC Hgb (14.0-18.0) g/dl Hct (42.0-52.0) % POC Hct (42-52) % MCV (80.0-100.0) fL MCH (25.0-34.0) pg MCHC (32.0-36.0) g/dL RDW Std Deviation (36.4-46.3) fL RDW Coeff of Jourdan (11.5-14.5) % Plt Count (130-400) K/uL MPV (9.4-12.4) fL Immature Gran % (Auto) % Neut % (Auto) % Lymph % (Auto) % Gregg % (Auto) % Eos % (Auto) % Baso % (Auto) % Neut # (Auto) (1.40-6.50) K/uL Lymph # (Auto) (1.20-3.40) K/uL Gregg # (Auto) (0.11-0.59) K/uL Eos # (Auto) (0.00-0.50) K/uL Baso # (Auto) (0.00-0.20) K/uL Immature Gran # (Auto) (0.01-0.20) K/uL Absolute Nucleated RBC (0.00-0.12) K/uL Nucleated RBC % (auto) % Dohle Bodies Polychromasia Hypochromasia Poikilocytosis Anisocytosis Target Cells Tear Drop Cells Haptoglobin PT (9.0-12.0) Seconds INR (0.9-1.1) Fibrinogen (184-400) mg/dl Factor VIII Activity (55 - 145) % Specimen Type Sample Site POC pH (7.35-7.45) POC pCO2 (35-46) mmHg POC pO2 (80-95) mmHg POC HCO3 (19-24) deidra/L POC Total CO2 (24-31) mmol/L POC Base Excess (-9-1.8) deidra/L O2 Sat Pulse Oximetry ABG pH (Temp Correct) (7.35-7.45) ABG pCO2 (Temp Corrct (35-46) mmHg POC ABG pO2 at Pt Temp POC ABG O2 Sat (90-95) % Rocael Test O2 Delivery Device Vent Mode POC FiO2 % End Tidal CO2 POC Sodium (135-144) mmol/L Sodium (136-145) mmol/L POC Potassium (3.3-5.0) mmol/L Potassium (3.5-5.1) mmol/L Chloride (98-107) mmol/L Carbon Dioxide (21-32) mmol/L Anion Gap (3-11) BUN (6-23) mg/dl Creatinine (0.6-1.4) mg/dl Est Cr Clr Drug Dosing ml/min eGFR BUN/Creatinine Ratio (10-20) Glucose (70-99(Fasting)) mg/dl POC Glucose (70-99) mg/dl POC Glucose (other) (70-99) mg/dl Estimat Average Glucose mg/dl Hemoglobin A1c (4.5-5.6) % Lactate (0.4-2.0) mmol/L Calcium (8.6-10.3) mg/dl Phosphorus (2.5-4.9) mg/dl Magnesium (1.7-2.4) mg/dl Unsaturated IBC (155-355) mcg/dl Total Bilirubin (0.2-1.0) mg/dl Direct Bilirubin (0-0.2) mg/dl AST (13-39) U/L ALT (7-52) U/L Alkaline Phosphatase (34-104) U/L Ammonia (18-72) umol/L Lactate Dehydrogenase (86-244) U/L Total Protein (6.0-8.3) gm/dl Albumin (3.4-5.0) gm/dl Globulin (2.5-4.0) gm/dl Albumin/Globulin Ratio (0.9-2) Random Cortisol mcg/dl Urine Color Urine Appearance (Clear) Urine pH (4.5-7.5) Ur Specific [place] (1.000-1.030) Urine Protein (Negative) Urine Glucose (UA) (Negative) Urine Ketones (Negative) Urine Blood (Negative) Urine Nitrite (Negative) Urine Bilirubin (Negative) Urine Urobilinogen (Negative) Ur Leukocyte Esterase (Negative) Urine WBC (Auto) (0-5) /hpf Urine RBC (Auto) (0-2) /hpf U Hyaline Cast (Auto) (0-2) /lpf U Epithel Cells (Auto) (0-2) /hpf Urine Bacteria (Auto) (None Seen) Urine Osmolality (500-800) mOsm/kg Ur Random Creatinine mg/dl Ur Random Sodium mmol/L Ur Random Potassium mmol/L Ur Random Chloride mmol/L Fluid Neutrophils % % Fluid Lymphocytes % % Fluid Basophils % % Fluid Meso/Macro/Gregg % % Fluid Comment Pleural Fluid Source Pleural Color Pleural Appearance Pleural pH (7.3-7.4) Pleural WBC (Auto) /uL Pleural RBC (Auto) /uL Pleural Total Protein gm/dl Pleural LDH U/L Pleural Glucose mg/dl Pleural Amylase U/L Nasal Screen MRSA (PCR) (Negative) YAQUELIN Screen SS-A/Ro Antibody SS-B/La Antibody Sm ([place]) Antibody EMPLOYEE RELATIONS REPRESENTATIVE Antibody Scl-70 Scleroderma Ab Anti-ds DNA ([place]) Chromatin Antibody Anti-Centromere Ab Thyroid Antimicrosomal Anti-Cardiolipin IgG Ab Anti-Cardiolipin IgA Ab Anti-Cardiolipin IgM Ab Complement C3 Complement C4 Blood Type O Positive Antibody Screen NEGATIVE Crossmatch See Detail Diagnostic Findings Chest CTA 11/27/24 14:09 EXAM: CT Angiography Chest With Intravenous Contrast INDICATION: Upper abdominal pain and diarrhea. TECHNIQUE: Axial computed tomographic angiography images of the chest with intravenous contrast. Sagittal and coronal reformatted images were created and reviewed. This CT exam was performed using one or more of the following dose reduction techniques: automated exposure control, adjustment of the mA and/or kV according to patient size, and/or use of iterative reconstruction technique. MIP reconstructed images were created and reviewed. CONTRAST: 117 ml of Optiray 320 was administered intravenously. COMPARISON: 07/18/2024 FINDINGS: Pulmonary arteries: No abnormality noted. No pulmonary embolism. Aorta: No acute change noted. No thoracic aortic aneurysm or dissection. Superior mesenteric artery: There is predominantly soft plaque at the origin of the superior mesenteric artery with roughly 75% stenosis. Lungs and pleural spaces: There is a small to moderate layering right pleural effusion. Centrilobular emphysematous changes stable. Airway thickening and atelectasis noted in the right middle and lower lobes. No bronchiectasis or honeycombing. No pneumothorax. No mass. Heart: Cardiomegaly. Small pericardial effusion. No evidence of right heart strain. Bones/joints: No acute or atypical chronic changes. Soft tissues: No abnormality noted. Lymph nodes: No abnormality noted. No enlarged lymph nodes. Intraperitoneal space: Small amounts of free fluid noted in the upper abdomen. IMPRESSION: 1. No pulmonary embolus or aortic dissection. 2. Bronchitis and atelectasis in the right middle and lower lobes. 3. Small to moderate right pleural effusion. 4. Mild ascites. 5. 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 ACT 112: Negative or not required by law. Electronically signed by Quiana Isidro 11-27-2024 3:35 PM Paracentesis Ultrasound 11/28/24 07:00 ULTRASOUND-GUIDED PARACENTESIS CLINICAL HISTORY: Ascites PROCEDURE: Procedure and risks were explained. Informed consent was obtained. A final timeout was completed. The abdomen was prepped and draped in sterile fashion. 1% lidocaine was utilized for skin anesthesia. Utilizing ultrasound guidance, a 5 Egyptian safety centesis catheter was advanced into the left lower quadrant pocket of ascites. Ultrasound images were obtained. 2.8 L of ascites fluid was removed with 1 L sent to lab for analysis. The catheter was removed and Band-Aid applied. The patient tolerated the procedure well. Vital signs will be monitored postprocedure. IMPRESSION: Ultrasound-guided paracentesis as above. Performed, dictated, and signed by Henrik Arellano PA-C; to be co-signed by Dr. German Perkins. Electronically signed by: German Perkins M.D. 11/29/2024 7:[address] 11/29/24 12:05 CT OF THE CHEST WITHOUT IV CONTRAST CLINICAL HISTORY: Rhonchi/rales. COMPARISON STUDY: Chest radiograph July 25, 2024. Chest CT November 27, 2024. TECHNIQUE: Axial images of the chest were obtained without IV contrast. Images were reviewed in the axial, sagittal, and coronal planes. IV contrast was not administered for this examination. Automated exposure control was utilized for the study. A dose lowering technique was utilized adhering to the principles of ALARA. FINDINGS: Moderate right and small left pleural effusions have increased in size since chest CT of November 27, 2024. Extensive right lower lobe airspace opacity with volume loss favors compressive atelectasis. There is also segmental atelectasis within the right upper and right lower lobes. There are secretions within the airways. There is no pneumothorax. Lungs are suboptimally assessed due to respiratory motion. Severe emphysema. The heart is moderately enlarged. There is no pericardial effusion. There is no thoracic lymphadenopathy. The abdomen and pelvis CT will be reported separately. Large volume pneumoperitoneum and upper abdominal ascites is present. There is body wall anasarca. IMPRESSION: 1. Large volume pneumoperitoneum consistent with a perforated hollow viscus. Findings better depicted on CT of the abdomen and pelvis which will be reported separately. Surgical consultation is recommended. Findings discussed with Dr. Almonte at time of dictation. 2. Ascites and anasarca. 3. Moderate right and small left pleural effusions which have increased in size since prior exam. Possible mild interstitial pulmonary edema. Extensive right lower lobe airspace opacities with volume loss favors compressive atelectasis. 4. Emphysema. 5. Cardiomegaly. ACT 112: Negative or not required by law. Electronically signed by: German Perkins M.D. 11/29/2024 1:56 PM Venous Doppler Study 12/03/24 09:30 BILATERAL LOWER EXTREMITY VENOUS DOPPLER CLINICAL HISTORY: Recent surgery. Lower extremity edema. Evaluate for deep venous thrombus. COMPARISON STUDY: No previous studies for comparison. TECHNIQUE: Sonography of the deep venous system of the bilateral lower extremities was performed. Compression and augmentation were evaluated. FINDINGS: The bilateral common femoral, superficial femoral and popliteal veins were compressible. Augmentation was normal. Flow was shown within the deep calf vessels. IMPRESSION: No evidence of deep venous thrombus within the bilateral lower extremities. ACT 112: Negative or not required by law. Electronically signed by: German Perkins M.D. 12/03/2024 12:01 PM Chest X-Ray 12/04/24 09:05 XR chest 1V portable CLINICAL HISTORY: f/u COMPARISON STUDY: Chest CT November 29, 2024. Chest radiograph December 03, 2024. FINDINGS: The lines and tubes have been removed. There is no pneumothorax. Moderate right and small left pleural effusions with associated airspace opacities are unchanged. Pulmonary edema persists. Cardiomediastinal silhouette is stable. IMPRESSION: 1. Interval removal of lines and tubes. 2. Persistent pulmonary edema with bilateral pleural effusions, right larger left, with associated airspace opacities which could reflect atelectasis or pneumonia. ACT 112: Negative or not required by law. Electronically signed by: German Perkins M.D. 12/04/2024 9:34 AM Abdomen/Pelvis CT 12/05/24 11:[address] WITH IV CONTRAST CT DOSE: 1278.62 mGy.cm HISTORY: febrile, wbc 33k, eval intra-abd abscess vs leak TECHNIQUE: Multiaxial CT images of the abdomen and pelvis were performed following the IV administration of 93 cc of Optiray, A dose lowering technique was utilized adhering to the principles of ALARA. COMPARISON STUDY: 11/29/2024 FINDINGS: There are moderate bilateral pleural effusions with adjacent lung base consolidation, stable. ABDOMEN: Stable lobular contour of the liver, normal variation versus early cirrhosis.. No focal liver abnormality seen. There is a possible small amount of gallbladder sludge. No evidence of acute cholecystitis. Spleen, pancreas, and adrenal glands are unremarkable. Kidneys show no hydronephrosis or calculi. There is an interval well positioned jejunostomy tube. There are scattered atherosclerotic calcifications. No abdominal aortic aneurysm. Pelvis: Sheth catheter is present. Urinary bladder is decompressed. There is interval partial small bowel resection with anastomosis at the proximal jejunum. There is a small to moderate amount of diffuse free fluid in the abdomen and pelvis with thin enhancing rim at the fluid adjacent to the inferior right liver and in the right paracolic gutter. There is a small amount of free air. There are multiple dilated small bowel loops at the central and upper abdomen measuring up to 4 cm. No colonic distention. Osseous structures: No acute osseous findings. IMPRESSION: 1. Small to moderate amount of free fluid at the abdomen and pelvis with thin enhancing rim at the fluid adjacent to the liver and in the right paracolic gutter, could represent infected fluid. There is a small amount of free air which could be due to the prior surgery. However, anastomotic leak is also a possibility. 2. Mildly dilated small bowel loops at the central and upper abdomen, ileus versus early small bowel obstruction. 3. Otherwise as described. ACT 112: Positive. There are findings on this exam that require communication between the performing entity and the patient following Patient Test Result Information Act ([place] Act 112) guidelines. The above report was generated using voice recognition software. It may contain grammatical, syntax or spelling errors. Electronically signed by: Sravan Garcia M.D. 12/05/2024 1:52 PM PG Care Time/CCT Total # of Minutes Spent Total Time Spent with Patient: Total time spent is greater than 50% in coordination of care (as documented) at patient's floor/unit and/or counseling patient: Coding Diagnoses Altered mental status R41.82 Weakness generalized R53.1 Discussion about advance care planning held with family member Z71.0 Palliative care by specialist Z51.5 MSOF (multiple systems organ failure)
[2024-12-06] MEDS: MoRPHine SULFATE 2 MG/ML CARP IV PRN ×2 (02:12→13:55)
[2024-12-06] MEDS: LORazepam 2 MG/1 ML VIAL IV PRN (03:56)
[2024-12-06 05:25] LABS: Bilirubin Direct 1.9 mg/dl (0-0.2); Bilirubin,Total 3.4 mg/dl (0.2-1.0); Total Protein 4.9 gm/dl (6.0-8.3)
[2024-12-06 07:51] LABS: BUN Creatinine Ratio 49.4 (10-20); Calcium 7.8 mg/dl (8.6-10.3); Creatinine Clr Calc Pharmacy 88.7 ml/min; Magnesium 1.9 mg/dl (1.7-2.4); Phosphorus 2.5 mg/dl (2.5-4.9); Potassium 3.4 mmol/L (3.5-5.1)
[2024-12-06 08:44] LABS: Adenovirus F 40/41 PCR Not Detected (NotDetected); Astrovirus PCR Not Detected (NotDetected); Campylobacter PCR Not Detected (NotDetected); Cryptosporidium PCR Not Detected (NotDetected); Cyclospora cayetanensis PCR Not Detected (NotDetected); Entamoeba histolytica PCR Not Detected (NotDetected); Enteroaggregative E.coli(EAEC) Not Detected (NotDetected); Enteropathogenic E.coli (EPEC) Not Detected (NotDetected); Enterotoxigenic E.coli (ETEC) Not Detected (NotDetected); Giardia lamblia PCR Not Detected (NotDetected); Norovirus GI/GII PCR Not Detected (NotDetected); Plesiomonas shigelloides PCR Not Detected (NotDetected); Rotavirus A PCR Not Detected (NotDetected); Salmonella PCR Not Detected (NotDetected); Sapovirus PCR Not Detected (NotDetected); Shiga-like Toxin E.coli (STEC) Not Detected (NotDetected); Shigella/Enteroinvasive E.coli Not Detected (NotDetected); Vibrio cholerae PCR Not Detected (NotDetected); Vibrio species PCR Not Detected (NotDetected); Yersinia enterocolitica PCR Not Detected (NotDetected)
[2024-12-06] MEDS: DEXTROSE 5% 1,000 ML IV SCH (08:51)
[2024-12-06 08:54] LABS: Cdiff Toxin B Gene (2yr or >) Positive Cdiff Gene (Neg)
[2024-12-06 09:05] LABS: Hematocrit (blood only) 22.5 % (42.0-52.0); Hemoglobin 6.5 g/dl (14.0-18.0); Mean Corpuscular Hemoglobin 24.1 pg (25.0-34.0); Mean Corpuscular Hgb Conc 28.9 g/dL (32.0-36.0); Mean Corpuscular Volume 83.3 fL (80.0-100.0); Nucleated RBC # (auto) 0.08 K/uL (0.00-0.12); Nucleated RBC % (auto) 0.3 %; Platelet Count 114 K/uL (130-400)
[2024-12-06] MEDS ORDERED: SODIUM CHLORIDE 0.9% 50 ML IV PRN (09:18)
[2024-12-06] MEDS ORDERED: SODIUM CHLORIDE 0.9% 100 ML IV PRN (09:18)
[2024-12-06 09:25] LABS: Anisocytosis Present; Basophilic Stippling 1+; Basophils # (auto) 0.05 K/uL (0.00-0.20); Basophils % (auto) 0.2 %; Hypochromasia Present; Immature Granulocytes % (auto) 1.4 %; Lymphocytes # (auto) 0.54 K/uL (1.20-3.40); Lymphocytes % (auto) 1.9 %; Macrocytosis Present; Monocytes # (auto) 0.72 K/uL (0.11-0.59); Monocytes % (auto) 2.6 %; Neutrophils # (auto) 26.09 K/uL (1.40-6.50); Neutrophils % (auto) 93.9 %; Pappenheimer Bodies 1+; Polychromasia 2+; Stomatocytes 2+; Target Cells 2+; Toxic Granulation 1+
--- NOTE | 2024-12-06 09:27 | Surgery Progress Note ---
Date of Service December 06, 2024 Assessment & Plan (1) Small bowel perforation: Plan: POD #7 extubated can begin po/tube feeds if critical care agrees with palliative discussion pending maintain drain no surgical issues Admission and Anticipated Discharge Date Admission Date: November 27, 2024 Subjective confused and not communicative Giancarlo drain serous CT scan with post op changes; no abscess or leak Review of Systems Constitutional: no fever and no chills Physical Exam Constitutional: WD/WN, vitals as above Respiratory: normal respiratory effort Cardiovascular: Rate/Rhythm: + tachycardic Gastrointestinal (Abdomen): Inspection/Auscultation: abdomen normal to inspection and normal bowel sounds; abdomen not distended Percussion/Palpation: + abdomen tender and abdomen soft; no guarding and abdomen not rigid Skin: no rashes, warm and dry Results & Data Vital Signs (Past 12 Hours) Vital Signs Temp Pulse Resp BP Pulse Ox O2 Del Method O2 Flow Rate 12/06/24 07:00 137/77 12/06/24 06:00 37.2 C 25 H 113/57 L 99 Oxymask 2 12/06/24 05:00 101 H 24 134/78 96 Oxymask 2 12/06/24 04:00 37.5 C 98 H 23 123/59 L 96 Oxymask 2 12/06/24 03:00 37.5 C 95 H 23 120/78 96 Oxymask 2 12/06/24 02:00 37.4 C 95 H 19 127/63 97 Oxymask 2 12/06/24 01:00 37.3 C 96 H 26 H 125/60 97 Oxymask 2 12/06/24 00:00 37.3 C 90 28 H 116/60 99 Oxymask 2 12/06/24 00:00 92 H 12/05/24 23:00 37.2 C 89 24 126/70 99 Oxymask 2 12/05/24 23:00 37.4 C 92 H 24 126/70 99 Oxymask 2 12/05/24 22:00 37.4 C 98 H 25 H 129/69 97 Oxymask 2
--- NOTE | 2024-12-06 09:40 | Critical Care Progress Note ---
Date of Service December 06, 2024 Assessment & Plan (1) Pneumoperitoneum: (2) History of Clostridioides difficile infection: (3) Abdominal ascites: (4) Pleural effusion: (5) GIB (gastrointestinal bleeding): (6) PSVT (paroxysmal supraventricular tachycardia): (7) Aspiration into lower respiratory tract: (8) Bed bug bite: (9) Alcohol abuse: (10) Transaminitis: (11) ISA (acute kidney injury): (12) COPD (chronic obstructive pulmonary disease): (13) High anion gap metabolic acidosis: (14) CHF (congestive heart failure): Plan Reason Critically Ill: 64-year-old male was admitted to the hospital for GI bleed. Patient was found to have pneumoperitoneum as well as ISA and was transferred to ICU for further management Past medical history: Alcohol abuse, COPD, ascites 24-hour events: Mucous bowel movement with blood noted today. Drop in H&H as well. Type and screen. Awaiting palliative discussion with family. Recommendations: Neuro -encephalopathy likely secondary to underlying medical issues. At risk for alcohol withdrawal. Holding benzodiazepines currently. Cardiac -septic shock now off vasopressor agents. Remains tachycardic. Cardiology consultation noted. Depressed EF with moderate to severe global hypokinesis of unclear etiology although alcoholic cardiomyopathy would be on the differential. Appears adequately fluid resuscitated currently Respiratory - Liberated from the ventilator but now with poor pulmonary toilet. According to the patient's sister, the patient is not going to participate in activities designed to improve his functional status to include deep breathing, exercising, or adhering to a medical regiment. She definitely states that he does not want to be reintubated and would not want tracheostomy. Would not want PEG tube. Bilateral pleural effusions noted on CT of the abdomen and pelvis today. Could consider thoracentesis but the patient is not able to be compliant with sitting still for invasive procedures. Continue to wean oxygen as tolerated. No indication for steroids. Continue bronchodilators as needed for presumed COPD GI -jejunal perforation status post abdominal surgery. Discussed extensively with surgical PA and reviewed imaging. Fluid collection certainly concerning for potential infectious etiology but surgery does not feel reexploration warranted currently. The patient is at high risk for surgical complications. These were discussed extensively with the family at bedside. See comments below. Keep n.p.o. for now. See below regarding antibiotics RENAL/LYTES -acute on chronic kidney injury. Creatinine now improving and back to baseline. Electrolytes and acid-base status are acceptable. Appears mildly fluid overloaded. Judicious diuretics as tolerated. Additional management per nephrology. -Sheth catheter in place ENDO - glycemic control per protocol. Random cortisol appropriate HEME -marked leukocytosis today. See comments under ID. Hemoglobin and hematocrit are trending down. Will type and cross. Await family decision prior to transfusion. ID -secondary peritonitis secondary to bowel perforation. Currently on broad- spectrum antibiotics with antifungals added. Day #6 Zosyn after 3 days of Flagyl. Day #4 caspofungin. Given use of antifungals, will obtain infectious disease consultation. Discussed extensively with the family. Ideally would like to sample the fluid collection which may require additional sedation. Family is unclear whether they want to pursue additional interventions at this point in time and have taken it under advisement. They are meeting with palliative care today to discuss options moving forward. Goals of care -palliative care had lengthy discussion with patient and family. After discussion, it was felt that it was best the patient be transition to comfort measures only. Please defer to palliative notes moving forward. Agree with this plan moving forward. --Prophylaxis VTE: IPC GI: Pantoprazole Lines: Peripheral, positive Sheth Diet: N.p.o. Thank you for allowing us to participate in the care of this pleasant patient. Admission and Anticipated Discharge Date Admission Date: November 27, 2024 Supervising Physician Co-Signing Physician Notes Patient seen and examined. EMR reviewed. Discussed with critical care AMITA and agree with assessment plan as noted. Appreciate assistance of palliative care. In light of the patient's declining clinical status certainly seems reasonable to transition to comfort care as the patient has expressed on multiple occasions previously his desire to not pursue aggressive medical intervention and we would be sustaining him in a quality of life which his sister is quite clear would be unclear to him if he were able to clearly express his wishes. Comfort care is appropriate. The patient will be transferred out of the ICU. Will sign off. Feel free to contact us with questions or concerns. A total of 50 minutes of critical care time was spent in evaluation management and coordination of care including end-of-life issues in this patient Subjective Patient seen and evaluated at bedside. Drop in H&H today with bloody bowel movement. Awaiting palliative discussion today. Review of Systems Review of Systems: Unable to obtain Physical Exam Constitutional: + ill appearing and + disheveled Neck: trachea midline, no thyromegaly Respiratory: no respiratory distress Auscultation: + rhonchi Cardiovascular: RRR, no murmur, no edema Gastrointestinal (Abdomen): normal bowel sounds, soft, nontender, no hepatosplenomegaly Musculoskeletal: Extremities: extremities normal to inspection Skin: no rashes, warm and dry Neurologic: Obtunded Lymphatic: no cervical lymphadenopathy Results & Data Results & Data Vital Signs (Past 12 Hours) Vital Signs Temp Pulse Resp BP Pulse Ox O2 Del Method O2 Flow Rate 12/06/24 07:00 137/77 12/06/24 06:00 37.2 C 25 H 113/57 L 99 Oxymask 2 12/06/24 05:00 101 H 24 134/78 96 Oxymask 2 12/06/24 04:00 37.5 C 98 H 23 123/59 L 96 Oxymask 2 12/06/24 03:00 37.5 C 95 H 23 120/78 96 Oxymask 2 12/06/24 02:00 37.4 C 95 H 19 127/63 97 Oxymask 2 12/06/24 01:00 37.3 C 96 H 26 H 125/60 97 Oxymask 2 12/06/24 00:00 37.3 C 90 28 H 116/60 99 Oxymask 2 12/06/24 00:00 92 H 12/05/24 23:00 37.2 C 89 24 126/70 99 Oxymask 2 12/05/24 23:00 37.4 C 92 H 24 126/70 99 Oxymask 2 12/05/24 22:00 37.4 C 98 H 25 H 129/69 97 Oxymask 2 Coding Level of Care Code 12886 CRITICAL CARE 1ST 30-74M Diagnoses Pneumoperitoneum K66.8 History of Clostridioides difficile infection Z86.19 Abdominal ascites K70.31 Ascites type: due to alcoholic cirrhosis Pleural effusion J90 GIB (gastrointestinal bleeding) K92.2 GI bleed type/associated pathology: unspecified gastrointestinal hemorrhage type PSVT (paroxysmal supraventricular tachycardia) I47.10 Aspiration into lower respiratory tract T17.800A Bed bug bite W57.XXXA Encounter type: initial encounter Alcohol abuse F10.10 Transaminitis R74.01 ISA (acute kidney injury) N17.9 COPD (chronic obstructive pulmonary disease) J44.9 High anion gap metabolic acidosis E87.29 CHF (congestive heart failure) I50.9 (3) Abdominal ascites Ascites type: due to alcoholic cirrhosis Qualified Code(s): K70.31 - Alcoholic cirrhosis of liver with ascites (5) GIB (gastrointestinal bleeding) GI bleed type/associated pathology: unspecified gastrointestinal hemorrhage type Qualified Code(s): K92.2 - Gastrointestinal hemorrhage, unspecified (8) Bed bug bite Encounter type: initial encounter Qualified Code(s): W57.XXXA - Bitten or stung by nonvenomous insect and other nonvenomous arthropods, initial encounter
--- NOTE | 2024-12-06 09:53 | Nephrology Progress Note ---
Date of Service December 06, 2024 Assessment & Plan (1) ISA (acute kidney injury): (2) Hypernatremia: Plan 64 year old M white male admitted on 11/27/24 due to weakness and abdominal pain. In ER SBP 70's, Hgb 5.8 and guaiac + stool, Cr 0.93. He was transfused [address] A/P without IV contrast revealed ascites and pneumoperitoneum. No hydronephrosis/stone or renal mass. Exploratory laparotomy 11/29/24 revealed perforated jejunum s/p proximal jejunal resection w/ primary side to side anastomosis. has PMH of alcohol use disorder, COPD and SVT. Kidney function normal but has worsened hypernatremia with poor p.o. intake. --resume D5W @100 ml/h for hypernatremia with free water deficit. --overall poor prognosis, waiting on Palliative care meeting with family regarding goals of care. Admission and Anticipated Discharge Date Admission Date: November 27, 2024 Marylou Epps was seen and evaluated this morning. He remains minimally responsive, lethargic, did not answer any question. Sodium worsened further to 150, potassium 3.1. Has not been taking anything orally. Kidney function normal. Urine output decent, Sheth catheter dark-colored urine. Review of Systems Review of Systems: Detailed review of system was not possible due to reduced responsiveness. Physical Exam Constitutional: WD/WN, vitals as above + ill appearing and + altered mental status Respiratory: Auscultation: + diminished lung sounds Cardiovascular: Rate/Rhythm: regular rate and regular rhythm Heart Sounds: normal S1 and normal S2 Extremities: no edema Neurologic: + obtunded Results & Data Vital Signs (Past 12 Hours) Vital Signs Temp Pulse Resp BP Pulse Ox O2 Del Method O2 Flow Rate 12/06/24 07:00 137/77 12/06/24 06:00 37.2 C 25 H 113/57 L 99 Oxymask 2 12/06/24 05:00 101 H 24 134/78 96 Oxymask 2 12/06/24 04:00 37.5 C 98 H 23 123/59 L 96 Oxymask 2 12/06/24 03:00 37.5 C 95 H 23 120/78 96 Oxymask 2 12/06/24 02:00 37.4 C 95 H 19 127/63 97 Oxymask 2 12/06/24 01:00 37.3 C 96 H 26 H 125/60 97 Oxymask 2 12/06/24 00:00 37.3 C 90 28 H 116/60 99 Oxymask 2 12/06/24 00:00 92 H 12/05/24 23:00 37.2 C 89 24 126/70 99 Oxymask 2 12/05/24 23:00 37.4 C 92 H 24 126/70 99 Oxymask 2 12/05/24 22:00 37.4 C 98 H 25 H 129/69 97 Oxymask 2 PG Care Time/CCT Total # of Minutes Spent Total Time Spent with Patient: Total time spent is greater than 50% in coordination of care (as documented) at patient's floor/unit and/or counseling patient: Coding Level of Care Code 05598 SUB INP/OBS CARE 2/35MIN Diagnoses ISA (acute kidney injury) N17.9 Hypernatremia E87.0
[2024-12-06 09:55] LABS: Cdiff Antigen Positive; Cdiff Toxin A+B Negative Cdiff Toxin (Negative)
[2024-12-06 10:30] VITALS: BP 131/60; PULSE 98; RESP 40; TEMP 98.1; O2SAT 100
[2024-12-06] MEDS ORDERED: LORazepam 2 MG/1 ML VIAL IV PRN (10:30)
[2024-12-06] MEDS: PHYTONADIONE 5 MG in DEXTROSE 5% 50 ML IV ONE (10:42)
--- NOTE | 2024-12-06 10:48 | Palliative Care Progress Note ---
Date of Service December 06, 2024 Assessment & Plan (1) Weakness generalized: (2) Altered mental status: (3) Discussion about advance care planning held with family member: Plan: m: I met with family (sister/PETRONA Buitrago and her ) along with Dr Pastor (resident/primary med team) and porter Mcmullen, for a 45min face to face ACP; family elected comfort care and I have written orders. I suspect he will this admission and so for now do not see a need for dispo planning but I advised family should he remain stable/where transport to SNF is safe, then care mgt will find him a SNF placement with ongoing comfort care. Additionally, at family's request I called [place] [employer] [place] to go to the address we have for pt to see if the roommate is there/are there personal belongings of the patient to hand over to sister before she leaves for [place] this afternoon. (4) Palliative care by specialist: (5) MSOF (multiple systems organ failure): (6) Need for comfort care: Plan: Comfort care orders written. Medical teams updated (7) Encounter for end of life education, guidance and counseling: Admission and Anticipated Discharge Date Admission Date: November 27, 2024 Results & Data Vital Signs (Past 12 Hours) Vital Signs Temp Pulse Resp BP Pulse Ox O2 Del Method O2 Flow Rate 12/06/24 10:00 36.7 C 98 H 40 H 131/60 100 Oxymask 2 12/06/24 09:00 36.8 C 98 H 39 H 120/64 100 Oxymask 2 12/06/24 08:00 37.0 C 100 H 39 H 130/61 98 Oxymask 2 12/06/24 07:00 37.0 C 99 H 39 H 137/77 100 Oxymask 2 12/06/24 07:00 137/77 12/06/24 06:00 37.2 C 25 H 113/57 L 99 Oxymask 2 12/06/24 05:00 101 H 24 134/78 96 Oxymask 2 12/06/24 04:00 37.5 C 98 H 23 123/59 L 96 Oxymask 2 12/06/24 03:00 37.5 C 95 H 23 120/78 96 Oxymask 2 12/06/24 02:00 37.4 C 95 H 19 127/63 97 Oxymask 2 12/06/24 01:00 37.3 C 96 H 26 H 125/60 97 Oxymask 2 12/06/24 00:00 37.3 C 90 28 H 116/60 99 Oxymask 2 12/06/24 00:00 92 H 12/05/24 23:00 37.2 C 89 24 126/70 99 Oxymask 2 12/05/24 23:00 37.4 C 92 H 24 126/70 99 Oxymask 2 PG Care Time/CCT Total # of Minutes Spent Total Time Spent with Patient: Total time spent is greater than 50% in coordination of care (as documented) at patient's floor/unit and/or counseling patient: Coding Diagnoses Weakness generalized R53.1 Altered mental status R41.82 Discussion about advance care planning held with family member Z71.0 Palliative care by specialist Z51.5 MSOF (multiple systems organ failure) Need for comfort care Encounter for end of life education, guidance and counseling
[2024-12-06] MEDS ORDERED: MoRPHine SULFATE 2 MG/ML CARP IV PRN (11:03)
[2024-12-06] MEDS: PANTOprazole 80 MG in DEXTROSE 5% 100 ML IV ONE (11:47)
--- NOTE | 2024-12-06 12:15 | Medical Student Progress Note ---
Date of Service December 06, 2024 Assessment & Plan (1) Anemia: Anemia type: unspecified type Qualified Code(s): D64.9 - Anemia, unspecified (2) GIB (gastrointestinal bleeding): GI bleed type/associated pathology: unspecified gastrointestinal hemorrhage type Qualified Code(s): K92.2 - Gastrointestinal hemorrhage, unspecified (3) Alcohol abuse: (4) Abdominal ascites: Ascites type: due to alcoholic cirrhosis Qualified Code(s): K70.31 - Alcoholic cirrhosis of liver with ascites (5) History of Clostridioides difficile infection: (6) Pneumoperitoneum: (7) Septic shock: (8) Small bowel perforation: (9) ISA (acute kidney injury): Plan This patient is a 64-year-old male with a history of alcohol use disorder, severe anemia, bedbug infestation, COPD, and SVT who does not follow regularly with a physician who presents with abdominal pain, ascites, and severe anemia. He developed into worsening abdominal pain and found to have perforated viscus on 11/29/24. This was complicated by septic shock and peritonitis. Status post exploratory laparotomy with small bowel resection and primary anastomosis of large proximal jejunum for bowel perforation. He remained intubated and has a ESTRELLITA tube. Was on MV with ETT. Patient tolerated well and extubated on 12/03/2024. Mich was transitioned to comfort care as of 12/06/2024. - Below is the workup previous to comfort care. Septic Shock/Pneumoperitoneum/ S/P exploratory laparotomy for bowel perforation - CT abdomen/pelvis (11/19) showed moderate ascites, moderate body wall edema, potential gastritis vs chronic ascites - Repeat CT (11/29): pneumoperitoneum and ascites significantly increased. Suspect bowel perforation - Underwent exploratory laparotomy with small bowel resection with primary anast omosis for large proximal jejunal perforation on 11/29. POD #5 Large 2 cm perforation in proximal jejunum, resected small bowel and primary anastomosis; 3 liters of feculent ascites removed. Has poor prognosis. - Continue Piperacillin-Tazobactam for broad spectrum antibiotics coverage - Random cortisol : 21 (12/01/2024) - Patient was under mechanical ventilation with ETT. Extubated on 12/03/2024 - Weaned off Norepinephrine - Patient discontinued Dobutamine (LVEF:25 to 30%) on 12/04/2024 - Blood culture (11/30/2023): Shows no growth of organism after 24 hour - Peritoneal culture- Many WBCs seen, no organism seen - WBC (12/03)- 17.58 (12/04)- 24.01----33.8 - Repeat CT Abd/Pelvic (12/05/24) indicated ascititc fluid, small pneumoperitoneum, and a possible anastomotic leak Drainage from ESTRELLITA drain - Serosanguineous with green colored drainage since (12/04) - Plan for CT AP repeat - Surgery consulted and following - WBC elevated from 24 to 33.8 during evaluation BL pleural effusions - R. thoracocentesis completed (11/30/24); 1.5 L drained; Pleural fluid culture negative; Cytology negative - Chest Xray(12/04): significant pulmonary edema with bilateral pleural effusion R>L and possible pneumonia - Echo (12/01/24): EF: 25-30%, previous echo (06/2024) largely unremarkable - Cardiology onboard - Etiology is likely ascitic fluid Severe anemia/Hemoccult positive stool - Hemoglobin has been as low as 4.1 in 06/2024 admitted for blood and iron transfusions - No gross melena or hematochezia. - No obvious bleeding on CT AP, potential anemia from chronic bedbug bites - 6 units PRBC given since admit,last infusion was on 12/02/2024, Hgb today: 9.7--9.5 - Folate/B12 wnl, Iron <10 - Consider EGD and colonoscopy once stable (GI on board) - CBC QAM, transfuse <8 - Needs evaluation advisor for severe bedbug infestation in house ISA/ATN/Hypernatremia resolved - Nephrology on board -- Requested D5 12/05/24 - Na >143---145 - Cr: 2.88---1.06 - Free water deficit~1.6 L - Patient pulled out NGT. Unable to give him enteral free water this time. Soft hand restraints in place. - Given D5W (12/06/24) for Na of 150 H/O clostridium Difficile - Vancomycin prophylactic given -- Held for now (12/05/24) Thrombocytopenia - Could be secondary to sepsis, Plt: 105 today (as low as 42 before) - Fibrinogen within normal limit, unlikely to be DIC - Doppler bilateral lower extremity-negative for DVT Hypokalemia: - Ongoing KCL supplementation. 20 MeQ in 1000 ml; 60 ml/ hour. DVT prophylaxis- SCDs only due to anemia Disposition- ICU Admission and Anticipated Discharge Date Admission Date: November 27, 2024 Supervising Attestation Attending Physician Supervision Note: I independently interviewed and examined the patient and verified the vásquez history and physical, reviewed labs and image studies and agree with findings and care plan noted above. 64 y/o M with h/o AUD, severe anemia, bedbug infestation, COPD, and SVT who does not follow regularly with a physician who presents with abdominal pain, ascites, and severe anemia. Developed into worsening abdominal pain and found to have perforated viscus. Here with septic shock and peritonitis. S/p Ex lap. Dyspneic. No restlessness. Not arousable. On oxymask. RRR, CTA anteriorly, no BS, Sheth in place. Septic shock/peritonitis - Needed to be intubated. s/p Ex lap. Was kept on pressors and IV antibiotics. -ESTRELLITA drainage bilious - CT abdomen with post-op changes/ileus. -Also developed GI bleed last night with drop in hemoglobin. Needed 6 units PRBC on admission due to severe anemia. -Delirium persisted - likely from alc withdrawal + hospital stay -New onset HFrEF 25% EF and recurrent pleural effusion - s/p thoracentesis on 11/30. -Developed ISA on CKD -Severe Hypernatremia -ISA on CKD - per nephro Considering worse overall prognosis in current state - Palliative care medicine consulted- Met with Sister - Transitioned to Comfort care. Subjective This morning we met with Mr. Castellano's sister (Marcy), her , and Dr. Smiley for a discussion regarding the next steps in care for Mr. Castellano. After updating the family yesterday and a family discussion later night, Marcy and her sister determined that Mich should be transitioned to comfort care. He was unable to see their sister after a coronary bypass surgery, and he avoided seeking medical care unless utmost urgency. Additionally, the sisters' conversation indicated that Mich would not want to be "attached to multiple tubes" or have to be reliant on other people/rehab if he were to have some recovery, though unlikely at this point with multiple organ failure. Hospice vs. comfort care was discussed. The family's questions were answered to they satisfaction. Review of Systems Review of Systems: Per HPI Physical Exam Constitutional: Patient was seen lying in bed accompanied by his sister and her Respiratory: Tachypenic with irregular breathing patterns Airflow appears decreased in the middle and lower garcia on the lungs Cardiovascular: Regular rate and rhythm No rubs, murmurs, or gallops Gastrointestinal (Abdomen): ESTRELLITA tube in place (draining serosanguinis fluid) Guarding with light palpation of the abdomen Musculoskeletal: Soft hand restraints in place Results & Data Vital Signs (Past 12 Hours) Vital Signs Temp Pulse Resp BP Pulse Ox O2 Del Method O2 Flow Rate 12/06/24 10:00 36.7 C 98 H 40 H 131/60 100 Oxymask 2 12/06/24 09:00 36.8 C 98 H 39 H 120/64 100 Oxymask 2 12/06/24 08:00 Oxymask 2 12/06/24 08:00 37.0 C 100 H 39 H 130/61 98 Oxymask 2 12/06/24 07:00 37.0 C 99 H 39 H 137/77 100 Oxymask 2 12/06/24 07:00 137/77 12/06/24 06:00 37.2 C 25 H 113/57 L 99 Oxymask 2 12/06/24 05:00 101 H 24 134/78 96 Oxymask 2 12/06/24 04:00 37.5 C 98 H 23 123/59 L 96 Oxymask 2 12/06/24 03:00 37.5 C 95 H 23 120/78 96 Oxymask 2 12/06/24 02:00 37.4 C 95 H 19 127/63 97 Oxymask 2 12/06/24 01:00 37.3 C 96 H 26 H 125/60 97 Oxymask 2
[2024-12-06] MEDS: PANTOprazole 80 MG in DEXTROSE 5% 100 ML IV SCH (20:19)
[2024-12-07] MEDS: GLYCOPYRROLATE 0.2 MG/ML VIAL IV PRN (00:31)
[2024-12-07 00:57] LABS: Anti Nuclear Antibody Screen NEGATIVE (NEGATIVE); Complement C3 32 mg/dL (82-185); DNA ds Crithidia NEGATIVE (NEGATIVE); Haptoglobin 118 mg/dL (43-212); Microsomal Ab 1 IU/mL (<9)
[2024-12-07] MEDS ORDERED: HYDROCORTISONE SOD 50 MG in SYRINGE 0 ML IV SCH (06:00)
--- NOTE | 2024-12-07 07:35 | Hospitalist Progress Note ---
Date of Service December 07, 2024 Assessment & Plan (1) Anemia: (2) GIB (gastrointestinal bleeding): (3) Alcohol abuse: (4) Abdominal ascites: (5) History of Clostridioides difficile infection: (6) Pneumoperitoneum: (7) Septic shock: (8) Small bowel perforation: (9) ISA (acute kidney injury): Plan Mich's here for ongoing comfort care. His previous plan of care were as follows. This patient is a 64-year-old male with a history of alcohol use disorder, severe anemia, bedbug infestation, COPD, and SVT admitted with septic shock and peritonitis. S/P exploratory laparotomy for bowel perforation. Septic Shock/Pneumoperitoneum/ S/P exploratory laparotomy for bowel perforation - S/P laparotomy. - Post op : Unstable, downtrending Hb - Poor prognosis per Surgery; do not plan for additional intervention d/t - MODS post procedure. - POA and palliative meeting : Comfort care decided. Other Issues: BL pleural effusion, Severe anemia, GI bleed, Acute decompensated Heart failure, ISA/ATN, Hypernatremia, H/O C diff/ Thrombocytopenia, Hypokalemia Admission and Anticipated Discharge Date Admission Date: November 27, 2024 Supervising Physician Co-Signing Physician Notes Attending Physician Supervision Note: I independently interviewed and examined the patient and verified the vásquez history and physical, reviewed labs and image studies and agree with findings and care plan noted above. 64 y/o M with h/o AUD, severe anemia, bedbug infestation, COPD, and SVT who does not follow regularly with a physician who presents with abdominal pain, ascites, and severe anemia. Developed into worsening abdominal pain and found to have perforated viscus. Here with septic shock and peritonitis. S/p Ex lap. Restless in bed. Awake but not cohorent. On oxymask. No resp distress, Sheth in place. Septic shock/peritonitis - Needed to be intubated. s/p Ex lap. Was kept on pressors and IV antibiotics. -ESTRELLITA drainage bilious - CT abdomen with post-op changes/ileus. -Also developed GI bleed last night with drop in hemoglobin. Needed 6 units PRBC on admission due to severe anemia. -Delirium persisted - likely from alc withdrawal + hospital stay -New onset HFrEF 25% EF and recurrent pleural effusion - s/p thoracentesis on 11/30. -Developed ISA on CKD -Severe Hypernatremia -ISA on CKD Considering worse overall prognosis in current state - Palliative care medicine consulted- Met with Sister - Transitioned to Comfort care. -continue comfort care. Subjective Mich is here for comfort care. Comfort care was decided yesterday after extensive discussion with his sister ( POA by next of kin) and palliative team. This AM Mich's breathing is irregular, still in O2 mask. Review of Systems Review of Systems: As per HPI Results & Data Results & Data Vital Signs (Past 12 Hours) Vital Signs O2 Del Method O2 Flow Rate 12/06/24 20:20 Oxymask 2 Resident Activity Tracking Resident Involvement: Resident Care Provided Care Provided: Adult Hospital Medicine (1) Anemia Anemia type: unspecified type Qualified Code(s): D64.9 - Anemia, unspecified (2) GIB (gastrointestinal bleeding) GI bleed type/associated pathology: unspecified gastrointestinal hemorrhage type Qualified Code(s): K92.2 - Gastrointestinal hemorrhage, unspecified (4) Abdominal ascites Ascites type: due to alcoholic cirrhosis Qualified Code(s): K70.31 - Alcoholic cirrhosis of liver with ascites
--- NOTE | 2024-12-07 10:26 | Palliative Care Progress Note ---
Date of Service December 06, 2024 Note: This note is a late entry note to replace the original documentation of December 06, 2024 which was accidentally canceled in [employer]. Assessment & Plan (1) Altered mental status: (2) Weakness generalized: (3) Discussion about advance care planning held with family member: Plan: A [id number] detailed and lengthy family meeting was held with patient's sister/POA, Marcy Buitrago and her in the family meeting room together with the resident from the primary team, medical student from the primary team and myself. This 45-minute discussion reviewed his overall clinical course, the complications, the persisting issues through this admission and his overall steady decline with the emergence of a multisystem organ failure picture. Marcy shared with us that patient was not a fan of doctoring and did not like any type of invasive or advanced medical care. In fact, he made it a point to avoid pursuing medical care even routine or preventive health. He struggled a lot with his addiction issues as well as the loss of their sister, who after a complicated course following open heart surgery. Marcy is very clear that patient would not even want to except his current level of medical complexity and she knows that if any other tubes or drains were placed, he would actively pull them out if he could. She also notes he would not want to live in a senior living or be dependent on others for care. He would also not want to be on life support or have any artificial or invasive means of sustaining his life. She notes that she has been trying to reach his roommate, adding that she knows this individual has been helping patient for a bit now letting him stay at his house for free but the number she has for that person has not been working. She does have an address that she noted on several pieces of mail that were with the patient when he arrived at the hospital but she does not know how to reach the individual who lives at that address. We agreed that I would call the [employer] police and ask for their assistance. Officer Ronen was able to go to the house and spoke with the laborer dairy farm of the home who and provided the contact information for Marcy, and they are now in contact. Marcy anticipates returning home to [place] today. We discussed a transition to comfort care which would be in alignment with patient's known preferences, previously expressed wishes, and she is in agreement for this. No further escalation, transition to comfort care, stop all nonessential medications and interventions and assure pain relief, freedom from suffering. She is aware that should he remain stable but in a slower decline, he will need discharge to a prison facility for ongoing comfort care with possibly the admission of hospice although that will ultimately be insurance specific. We will see how he does over the next several days on comfort care. Per the comfort care protocol, we will also ask for an inpatient hospice evaluation. I advised her that given his overall frailty, medical complications and multiorgan system failure, I do not anticipate that he will substantially regain a significant amount of mental clarity, or be able to engage in his care. I also suspect that it is likely he will during this admission. She expressed understanding and verbalized agreement. She and her are in agreement as well as the discussions previously held with their family, that it is time to transition [place] to a comfort plan of care and assure no suffering at this end-of-life process. (4) Encounter for end of life education, guidance and counseling: (5) Need for comfort care: (6) MSOF (multiple systems organ failure): (7) Palliative care by specialist: Plan As above, comfort care orders written, [place] police notified to assist with determining if there are any personal belongings that sister would need to return to [place] with today. Thank you for allowing us to participate in the ongoing care of this patient. Please page with any additional concerns. Leila Smiley DNP Director, Palliative Medicine Admission and Anticipated Discharge Date Admission Date: November 27, 2024 Subjective No significant improvement, sister and [id number] at the bedside. Remains with altered mental status. Output at times has been bloody. He is also having rectal bleeding. Review of Systems Review of Systems: Unobtainable due to cognitive status and Unobtainable due to reduced consciousness Physical Exam Physical Exam: critically ill appearing male +AMS, lethargy, unable to participate in exam Bitemp wasting tachy diaphoretic inc resp effort at times with use of accessory muscles abd distended surgical drain in place, + bloody drainage gen weakness pallor+ unable to follow commands Results & Data Laboratory Results 12/06/24 12/06/24 12/06/24 Range/Units 09:18 08:41 08:38 WBC 27.80 H (4.8-10.8) K/ul RBC 2.70 L (4.70-6.10) M/uL Hgb 6.5 L* D (14.0-18.0) g/dl POC Hgb (14.0-18.0) g/dl Hct 22.5 L (42.0-52.0) % POC Hct (42-52) % MCV 83.3 D (80.0-100.0) fL MCH 24.1 L (25.0-34.0) pg MCHC 28.9 L (32.0-36.0) g/dL RDW Std Deviation RDW Coeff of Jourdan Plt Count 114 L (130-400) K/uL MPV Immature Gran % (Auto) 1.4 % Neut % (Auto) 93.9 % Lymph % (Auto) 1.9 % Howell % (Auto) 2.6 % Eos % (Auto) 0.0 % Baso % (Auto) 0.2 % Neut # (Auto) 26.09 H (1.40-6.50) K/uL Lymph # (Auto) 0.54 L (1.20-3.40) K/uL Howell # (Auto) 0.72 H (0.11-0.59) K/uL Eos # (Auto) 0.00 (0.00-0.50) K/uL Baso # (Auto) 0.05 (0.00-0.20) K/uL Immature Gran # (Auto) 0.40 H (0.01-0.20) K/uL Absolute Nucleated RBC 0.08 (0.00-0.12) K/uL Nucleated RBC % (auto) 0.3 % Neutrophils % (Manual) Band Neutrophils % Lymphocytes % (Manual) Prolymphocyte % Reactive Lymphs % (Man) Monocytes % (Manual) Eosinophils % (Manual) Basophils % (Manual) Metamyelocytes % (Man) Myelocytes % (Man) Promyelocytes % (Man) Blast Cells % (Manual) Plasma Cell % (Manual) Other Cells % Nucleated RBC % Neutrophils # (Manual) Band Neutrophils # Total Absolute Neuts Lymphocytes # (Manual) Prolymphocyte # Reactive Lymphs # Total Abs Lymphocytes Monocytes # (Manual) Eosinophils # (Manual) Basophils # (Manual) Metamyelocytes # (Man) Myelocytes # (Manual) Promyelocytes # (Man) Blast Cells # (Man) Plasma Cell # (Manual) Other Cells # Nucleated RBCs # (Man) Hypersegmented Neuts Hyposegmented Neuts Hypogranular Neuts Large Granular Lymphs # Lrg Granular Lymphs Hairy Cells Smudge Cells Toxic Granulation 1+ Toxic Vacuolation Dohle Bodies Alejandra Rods Platelet Estimate Hypogranular Platelets Giant Platelets Platelet Satelliting RBC Morphology Polychromasia 2+ Hypochromasia Present Poikilocytosis Basophilic Stippling 1+ Anisocytosis Present Microcytosis Macrocytosis Present Spherocytes Pappenheimer Bodies 1+ Sickle Cells Target Cells 2+ Tear Drop Cells Ovalocytes Stomatocytes 2+ Andrews-[place] Bodies Echinocytes Acanthocytes (Spur) Rouleaux RBC Agglutinates Schistocytes Sezary Cell Haptoglobin (43-212) mg/dL PT (9.0-12.0) Seconds INR (0.9-1.1) Fibrinogen (184-400) mg/dl Factor VIII Activity (55 - 145) % Specimen Type Sample Site POC pH (7.35-7.45) POC pCO2 (35-46) mmHg POC pO2 (80-95) mmHg POC HCO3 (19-24) deidra/L POC Total CO2 (24-31) mmol/L POC Base Excess (-9-1.8) deidra/L O2 Sat Pulse Oximetry ABG pH (Temp Correct) (7.35-7.45) ABG pCO2 (Temp Corrct (35-46) mmHg POC ABG pO2 at Pt Temp POC ABG O2 Sat (90-95) % Rocael Test O2 Delivery Device Vent Mode POC FiO2 % End Tidal CO2 POC Sodium (135-144) mmol/L Sodium (136-145) mmol/L POC Potassium (3.3-5.0) mmol/L Potassium (3.5-5.1) mmol/L Chloride (98-107) mmol/L Carbon Dioxide (21-32) mmol/L Anion Gap (3-11) BUN (6-23) mg/dl Creatinine (0.6-1.4) mg/dl Est Cr Clr Drug Dosing ml/min eGFR BUN/Creatinine Ratio (10-20) Glucose (70-99(Fasting)) mg/dl POC Glucose (70-99) mg/dl POC Glucose (other) (70-99) mg/dl Estimat Average Glucose mg/dl Hemoglobin A1c (4.5-5.6) % Calcium (8.6-10.3) mg/dl Phosphorus (2.5-4.9) mg/dl Magnesium (1.7-2.4) mg/dl Unsaturated IBC (155-355) mcg/dl Total Bilirubin (0.2-1.0) mg/dl Direct Bilirubin (0-0.2) mg/dl AST (13-39) U/L ALT (7-52) U/L Alkaline Phosphatase (34-104) U/L Lactate Dehydrogenase (86-244) U/L Total Protein (6.0-8.3) gm/dl Albumin (3.4-5.0) gm/dl Random Cortisol mcg/dl Fluid Neutrophils % % Fluid Lymphocytes % % Fluid Basophils % % Fluid Meso/Macro/Howell % % Fluid Comment Pleural Fluid Source Pleural Color Pleural Appearance Pleural pH (7.3-7.4) Pleural WBC (Auto) /uL Pleural RBC (Auto) /uL Pleural Total Protein gm/dl Pleural LDH U/L Pleural Glucose mg/dl Pleural Amylase U/L Stool Occult Bld Scrn Positive A (Negative) Stl C. cayetanensis PCR (NotDetected) Stool Rotavirus A PCR (NotDetected) Stl Adenov F 40/41 PCR (NotDetected) Stool Astrovirus (PCR) (NotDetected) Stool Campylobacter PCR (NotDetected) Stl C. diff Tox B Gene (Neg) Stl C.difficile Tox A&B (Negative) Stool Cryptosporidium PCR (NotDetected) Stl E.coli Shiga Tox PCR (NotDetected) Stl Enterotoxigenic E PCR (NotDetected) Stool EPEC (PCR) (NotDetected) Stool EAEC (PCR) (NotDetected) Stl E. histolytica PCR (NotDetected) Stool Giardia Lamblia PCR (NotDetected) Stool Salmonella PCR (NotDetected) Stool Sapovirus (PCR) (NotDetected) Stl P. shigelloides PCR (NotDetected) Stl Shigella/EIEC PCR (NotDetected) St Y.enterocolitica PCR (NotDetected) Stool Vibrio (PCR) (NotDetected) Stl Vibrio cholerae PCR (NotDetected) Stl Norovirus GI/GII PCR (NotDetected) YAQUELIN Screen (NEGATIVE) SS-A/Ro Antibody SS-B/La Antibody Sm ([place]) Antibody CERTIFIED SUBSTANCE ABUSE COUNSELOR Antibody Scl-70 Scleroderma Ab Anti-ds DNA (Crithidia) (NEGATIVE) Chromatin Antibody Anti-Centromere Ab Thyroid Antimicrosomal (<9) IU/mL Anti-Cardiolipin IgG Ab Anti-Cardiolipin IgA Ab APL-U/mL Anti-Cardiolipin IgM Ab Complement C3 (82-185) mg/dL Complement C4 (15-53) mg/dL Blood Parasites ID Blood Type O Positive Antibody Screen NEGATIVE Crossmatch See Detail 12/06/24 12/06/24 12/06/24 Range/Units 07:02 06:30 05:59 WBC Cancelled (4.8-10.8) K/ul RBC Cancelled (4.70-6.10) M/uL Hgb Cancelled (14.0-18.0) g/dl POC Hgb (14.0-18.0) g/dl Hct Cancelled (42.0-52.0) % POC Hct (42-52) % MCV Cancelled (80.0-100.0) fL MCH Cancelled (25.0-34.0) pg MCHC Cancelled (32.0-36.0) g/dL RDW Std Deviation Cancelled RDW Coeff of Jourdan Cancelled Plt Count Cancelled (130-400) K/uL MPV Cancelled Immature Gran % (Auto) Cancelled % Neut % (Auto) Cancelled % Lymph % (Auto) Cancelled % Howell % (Auto) Cancelled % Eos % (Auto) Cancelled % Baso % (Auto) Cancelled % Neut # (Auto) Cancelled (1.40-6.50) K/uL Lymph # (Auto) Cancelled (1.20-3.40) K/uL Howell # (Auto) Cancelled (0.11-0.59) K/uL Eos # (Auto) Cancelled (0.00-0.50) K/uL Baso # (Auto) Cancelled (0.00-0.20) K/uL Immature Gran # (Auto) Cancelled (0.01-0.20) K/uL Absolute Nucleated RBC Cancelled (0.00-0.12) K/uL Nucleated RBC % (auto) Cancelled % Neutrophils % (Manual) Cancelled Band Neutrophils % Cancelled Lymphocytes % (Manual) Cancelled Prolymphocyte % Cancelled Reactive Lymphs % (Man) Cancelled Monocytes % (Manual) Cancelled Eosinophils % (Manual) Cancelled Basophils % (Manual) Cancelled Metamyelocytes % (Man) Cancelled Myelocytes % (Man) Cancelled Promyelocytes % (Man) Cancelled Blast Cells % (Manual) Cancelled Plasma Cell % (Manual) Cancelled Other Cells % Cancelled Nucleated RBC % Cancelled Neutrophils # (Manual) Cancelled Band Neutrophils # Cancelled Total Absolute Neuts Cancelled Lymphocytes # (Manual) Cancelled Prolymphocyte # Cancelled Reactive Lymphs # Cancelled Total Abs Lymphocytes Cancelled Monocytes # (Manual) Cancelled Eosinophils # (Manual) Cancelled Basophils # (Manual) Cancelled Metamyelocytes # (Man) Cancelled Myelocytes # (Manual) Cancelled Promyelocytes # (Man) Cancelled Blast Cells # (Man) Cancelled Plasma Cell # (Manual) Cancelled Other Cells # Cancelled Nucleated RBCs # (Man) Cancelled Hypersegmented Neuts Cancelled Hyposegmented Neuts Cancelled Hypogranular Neuts Cancelled Large Granular Lymphs Cancelled # Lrg Granular Lymphs Cancelled Hairy Cells Cancelled Smudge Cells Cancelled Toxic Granulation Cancelled Toxic Vacuolation Cancelled Dohle Bodies Cancelled Alejandra Rods Cancelled Platelet Estimate Cancelled Hypogranular Platelets Cancelled Giant Platelets Cancelled Platelet Satelliting Cancelled RBC Morphology Cancelled Polychromasia Cancelled Hypochromasia Cancelled Poikilocytosis Cancelled Basophilic Stippling Cancelled Anisocytosis Cancelled Microcytosis Cancelled Macrocytosis Cancelled Spherocytes Cancelled Pappenheimer Bodies Cancelled Sickle Cells Cancelled Target Cells Cancelled Tear Drop Cells Cancelled Ovalocytes Cancelled Stomatocytes Cancelled Andrews-[place] Bodies Cancelled Echinocytes Cancelled Acanthocytes (Spur) Cancelled Rouleaux Cancelled RBC Agglutinates Cancelled Schistocytes Cancelled Sezary Cell Cancelled Haptoglobin (43-212) mg/dL PT (9.0-12.0) Seconds INR (0.9-1.1) Fibrinogen (184-400) mg/dl Factor VIII Activity (55 - 145) % Specimen Type Sample Site POC pH (7.35-7.45) POC pCO2 (35-46) mmHg POC pO2 (80-95) mmHg POC HCO3 (19-24) deidra/L POC Total CO2 (24-31) mmol/L POC Base Excess (-9-1.8) deidra/L O2 Sat Pulse Oximetry ABG pH (Temp Correct) (7.35-7.45) ABG pCO2 (Temp Corrct (35-46) mmHg POC ABG pO2 at Pt Temp POC ABG O2 Sat (90-95) % Rocael Test O2 Delivery Device Vent Mode POC FiO2 % End Tidal CO2 POC Sodium (135-144) mmol/L Sodium 150 H (136-145) mmol/L POC Potassium (3.3-5.0) mmol/L Potassium 3.4 L D (3.5-5.1) mmol/L Chloride 113 H (98-107) mmol/L Carbon Dioxide 34 H (21-32) mmol/L Anion Gap 3 (3-11) BUN 39 H (6-23) mg/dl Creatinine 0.79 (0.6-1.4) mg/dl Est Cr Clr Drug Dosing 88.7 ml/min eGFR 100.44 BUN/Creatinine Ratio 49.4 H (10-20) Glucose 143 H (70-99(Fasting)) mg/dl POC Glucose 157 H (70-99) mg/dl POC Glucose (other) (70-99) mg/dl Estimat Average Glucose mg/dl Hemoglobin A1c (4.5-5.6) % Calcium 7.8 L (8.6-10.3) mg/dl Phosphorus 2.5 (2.5-4.9) mg/dl Magnesium 1.9 (1.7-2.4) mg/dl Unsaturated IBC (155-355) mcg/dl Total Bilirubin (0.2-1.0) mg/dl Direct Bilirubin (0-0.2) mg/dl AST (13-39) U/L ALT (7-52) U/L Alkaline Phosphatase (34-104) U/L Lactate Dehydrogenase (86-244) U/L Total Protein (6.0-8.3) gm/dl Albumin (3.4-5.0) gm/dl Random Cortisol mcg/dl Fluid Neutrophils % % Fluid Lymphocytes % % Fluid Basophils % % Fluid Meso/Macro/Howell % % Fluid Comment Pleural Fluid Source Pleural Color Pleural Appearance Pleural pH (7.3-7.4) Pleural WBC (Auto) /uL Pleural RBC (Auto) /uL Pleural Total Protein gm/dl Pleural LDH U/L Pleural Glucose mg/dl Pleural Amylase U/L Stool Occult Bld Scrn (Negative) Stl C. cayetanensis PCR Not Detected (NotDetected) Stool Rotavirus A PCR Not Detected (NotDetected) Stl Adenov F 40/41 PCR Not Detected (NotDetected) Stool Astrovirus (PCR) Not Detected (NotDetected) Stool Campylobacter PCR Not Detected (NotDetected) Stl C. diff Tox B Gene Positive Cdiff Gene H (Neg) Stl C.difficile Tox A&B Negative Cdiff Toxin (Negative) Stool Cryptosporidium PCR Not Detected (NotDetected) Stl E.coli Shiga Tox PCR Not Detected (NotDetected) Stl Enterotoxigenic E PCR Not Detected (NotDetected) Stool EPEC (PCR) Not Detected (NotDetected) Stool EAEC (PCR) Not Detected (NotDetected) Stl E. histolytica PCR Not Detected (NotDetected) Stool Giardia Lamblia PCR Not Detected (NotDetected) Stool Salmonella PCR Not Detected (NotDetected) Stool Sapovirus (PCR) Not Detected (NotDetected) Stl P. shigelloides PCR Not Detected (NotDetected) Stl Shigella/EIEC PCR Not Detected (NotDetected) St Y.enterocolitica PCR Not Detected (NotDetected) Stool Vibrio (PCR) Not Detected (NotDetected) Stl Vibrio cholerae PCR Not Detected (NotDetected) Stl Norovirus GI/GII PCR Not Detected (NotDetected) YAQUELIN Screen (NEGATIVE) SS-A/Ro Antibody SS-B/La Antibody Sm ([place]) Antibody CERTIFIED SUBSTANCE ABUSE COUNSELOR Antibody Scl-70 Scleroderma Ab Anti-ds DNA (Crithidia) (NEGATIVE) Chromatin Antibody Anti-Centromere Ab Thyroid Antimicrosomal (<9) IU/mL Anti-Cardiolipin IgG Ab Anti-Cardiolipin IgA Ab APL-U/mL Anti-Cardiolipin IgM Ab Complement C3 (82-185) mg/dL Complement C4 (15-53) mg/dL Blood Parasites ID Cancelled Blood Type Antibody Screen Crossmatch 01/06/2312/06/24 12/05/24 Range/Units 04:07 00:04 20:22 WBC (4.8-10.8) K/ul RBC (4.70-6.10) M/uL Hgb (14.0-18.0) g/dl POC Hgb (14.0-18.0) g/dl Hct (42.0-52.0) % POC Hct (42-52) % MCV (80.0-100.0) fL MCH (25.0-34.0) pg MCHC (32.0-36.0) g/dL RDW Std Deviation RDW Coeff of Jourdan Plt Count (130-400) K/uL MPV Immature Gran % (Auto) % Neut % (Auto) % Lymph % (Auto) % Howell % (Auto) % Eos % (Auto) % Baso % (Auto) % Neut # (Auto) (1.40-6.50) K/uL Lymph # (Auto) (1.20-3.40) K/uL Howell # (Auto) (0.11-0.59) K/uL Eos # (Auto) (0.00-0.50) K/uL Baso # (Auto) (0.00-0.20) K/uL Immature Gran # (Auto) (0.01-0.20) K/uL Absolute Nucleated RBC (0.00-0.12) K/uL Nucleated RBC % (auto) % Neutrophils % (Manual) Band Neutrophils % Lymphocytes % (Manual) Prolymphocyte % Reactive Lymphs % (Man) Monocytes % (Manual) Eosinophils % (Manual) Basophils % (Manual) Metamyelocytes % (Man) Myelocytes % (Man) Promyelocytes % (Man) Blast Cells % (Manual) Plasma Cell % (Manual) Other Cells % Nucleated RBC % Neutrophils # (Manual) Band Neutrophils # Total Absolute Neuts Lymphocytes # (Manual) Prolymphocyte # Reactive Lymphs # Total Abs Lymphocytes Monocytes # (Manual) Eosinophils # (Manual) Basophils # (Manual) Metamyelocytes # (Man) Myelocytes # (Manual) Promyelocytes # (Man) Blast Cells # (Man) Plasma Cell # (Manual) Other Cells # Nucleated RBCs # (Man) Hypersegmented Neuts Hyposegmented Neuts Hypogranular Neuts Large Granular Lymphs # Lrg Granular Lymphs Hairy Cells Smudge Cells Toxic Granulation Toxic Vacuolation Dohle Bodies Alejandra Rods Platelet Estimate Hypogranular Platelets Giant Platelets Platelet Satelliting RBC Morphology Polychromasia Hypochromasia Poikilocytosis Basophilic Stippling Anisocytosis Microcytosis Macrocytosis Spherocytes Pappenheimer Bodies Sickle Cells Target Cells Tear Drop Cells Ovalocytes Stomatocytes Andrews-[place] Bodies Echinocytes Acanthocytes (Spur) Rouleaux RBC Agglutinates Schistocytes Sezary Cell Haptoglobin (43-212) mg/dL PT (9.0-12.0) Seconds INR (0.9-1.1) Fibrinogen (184-400) mg/dl Factor VIII Activity (55 - 145) % Specimen Type Sample Site POC pH (7.35-7.45) POC pCO2 (35-46) mmHg POC pO2 (80-95) mmHg POC HCO3 (19-24) deidra/L POC Total CO2 (24-31) mmol/L POC Base Excess (-9-1.8) deidra/L O2 Sat Pulse Oximetry ABG pH (Temp Correct) (7.35-7.45) ABG pCO2 (Temp Corrct (35-46) mmHg POC ABG pO2 at Pt Temp POC ABG O2 Sat (90-95) % Rocael Test O2 Delivery Device Vent Mode POC FiO2 % End Tidal CO2 POC Sodium (135-144) mmol/L Sodium (136-145) mmol/L POC Potassium (3.3-5.0) mmol/L Potassium (3.5-5.1) mmol/L Chloride (98-107) mmol/L Carbon Dioxide (21-32) mmol/L Anion Gap (3-11) BUN (6-23) mg/dl Creatinine (0.6-1.4) mg/dl Est Cr Clr Drug Dosing ml/min eGFR BUN/Creatinine Ratio (10-20) Glucose (70-99(Fasting)) mg/dl POC Glucose 142 H 172 H (70-99) mg/dl POC Glucose (other) (70-99) mg/dl Estimat Average Glucose mg/dl Hemoglobin A1c (4.5-5.6) % Calcium (8.6-10.3) mg/dl Phosphorus (2.5-4.9) mg/dl Magnesium (1.7-2.4) mg/dl Unsaturated IBC (155-355) mcg/dl Total Bilirubin 3.4 H (0.2-1.0) mg/dl Direct Bilirubin 1.9 H (0-0.2) mg/dl AST 38 (13-39) U/L ALT 27 (7-52) U/L Alkaline Phosphatase 48 (34-104) U/L Lactate Dehydrogenase (86-244) U/L Total Protein 4.9 L (6.0-8.3) gm/dl Albumin 3.0 L (3.4-5.0) gm/dl Random Cortisol mcg/dl Fluid Neutrophils % % Fluid Lymphocytes % % Fluid Basophils % % Fluid Meso/Macro/Howell % % Fluid Comment Pleural Fluid Source Pleural Color Pleural Appearance Pleural pH (7.3-7.4) Pleural WBC (Auto) /uL Pleural RBC (Auto) /uL Pleural Total Protein gm/dl Pleural LDH U/L Pleural Glucose mg/dl Pleural Amylase U/L Stool Occult Bld Scrn (Negative) Stl C. cayetanensis PCR (NotDetected) Stool Rotavirus A PCR (NotDetected) Stl Adenov F 40/41 PCR (NotDetected) Stool Astrovirus (PCR) (NotDetected) Stool Campylobacter PCR (NotDetected) Stl C. diff Tox B Gene (Neg) Stl C.difficile Tox A&B (Negative) Stool Cryptosporidium PCR (NotDetected) Stl E.coli Shiga Tox PCR (NotDetected) Stl Enterotoxigenic E PCR (NotDetected) Stool EPEC (PCR) (NotDetected) Stool EAEC (PCR) (NotDetected) Stl E. histolytica PCR (NotDetected) Stool Giardia Lamblia PCR (NotDetected) Stool Salmonella PCR (NotDetected) Stool Sapovirus (PCR) (NotDetected) Stl P. shigelloides PCR (NotDetected) Stl Shigella/EIEC PCR (NotDetected) St Y.enterocolitica PCR (NotDetected) Stool Vibrio (PCR) (NotDetected) Stl Vibrio cholerae PCR (NotDetected) Stl Norovirus GI/GII PCR (NotDetected) YAQUELIN Screen (NEGATIVE) SS-A/Ro Antibody SS-B/La Antibody Sm ([place]) Antibody CERTIFIED SUBSTANCE ABUSE COUNSELOR Antibody Scl-70 Scleroderma Ab Anti-ds DNA (Crithidia) (NEGATIVE) Chromatin Antibody Anti-Centromere Ab Thyroid Antimicrosomal (<9) IU/mL Anti-Cardiolipin IgG Ab Anti-Cardiolipin IgA Ab APL-U/mL Anti-Cardiolipin IgM Ab Complement C3 (82-185) mg/dL Complement C4 (15-53) mg/dL Blood Parasites ID Blood Type Antibody Screen Crossmatch 12/05/24 12/05/24 12/05/24 Range/Units 12:16 06:07 04:37 WBC 33.08 H* (4.8-10.8) K/ul RBC 4.04 L (4.70-6.10) M/uL Hgb 9.5 L (14.0-18.0) g/dl POC Hgb (14.0-18.0) g/dl Hct 31.6 L (42.0-52.0) % POC Hct (42-52) % MCV 78.2 L (80.0-100.0) fL MCH 23.5 L (25.0-34.0) pg MCHC 30.1 L (32.0-36.0) g/dL RDW Std Deviation RDW Coeff of Jourdan Plt Count 105 L D (130-400) K/uL MPV Immature Gran % (Auto) % Neut % (Auto) % Lymph % (Auto) % Howell % (Auto) % Eos % (Auto) % Baso % (Auto) % Neut # (Auto) (1.40-6.50) K/uL Lymph # (Auto) (1.20-3.40) K/uL Howell # (Auto) (0.11-0.59) K/uL Eos # (Auto) (0.00-0.50) K/uL Baso # (Auto) (0.00-0.20) K/uL Immature Gran # (Auto) (0.01-0.20) K/uL Absolute Nucleated RBC 0.13 H (0.00-0.12) K/uL Nucleated RBC % (auto) 0.4 % Neutrophils % (Manual) Band Neutrophils % Lymphocytes % (Manual) Prolymphocyte % Reactive Lymphs % (Man) Monocytes % (Manual) Eosinophils % (Manual) Basophils % (Manual) Metamyelocytes % (Man) Myelocytes % (Man) Promyelocytes % (Man) Blast Cells % (Manual) Plasma Cell % (Manual) Other Cells % Nucleated RBC % Neutrophils # (Manual) Band Neutrophils # Total Absolute Neuts Lymphocytes # (Manual) Prolymphocyte # Reactive Lymphs # Total Abs Lymphocytes Monocytes # (Manual) Eosinophils # (Manual) Basophils # (Manual) Metamyelocytes # (Man) Myelocytes # (Manual) Promyelocytes # (Man) Blast Cells # (Man) Plasma Cell # (Manual) Other Cells # Nucleated RBCs # (Man) Hypersegmented Neuts Hyposegmented Neuts Hypogranular Neuts Large Granular Lymphs # Lrg Granular Lymphs Hairy Cells Smudge Cells Toxic Granulation Toxic Vacuolation Dohle Bodies Alejandra Rods Platelet Estimate Hypogranular Platelets Giant Platelets Platelet Satelliting RBC Morphology Polychromasia Hypochromasia Poikilocytosis Basophilic Stippling Anisocytosis Microcytosis Macrocytosis Spherocytes Pappenheimer Bodies Sickle Cells Target Cells Tear Drop Cells Ovalocytes Stomatocytes Andrews-[place] Bodies Echinocytes Acanthocytes (Spur) Rouleaux RBC Agglutinates Schistocytes Sezary Cell Haptoglobin (43-212) mg/dL PT (9.0-12.0) Seconds INR (0.9-1.1) Fibrinogen (184-400) mg/dl Factor VIII Activity (55 - 145) % Specimen Type Sample Site POC pH (7.35-7.45) POC pCO2 (35-46) mmHg POC pO2 (80-95) mmHg POC HCO3 (19-24) deidra/L POC Total CO2 (24-31) mmol/L POC Base Excess (-9-1.8) deidra/L O2 Sat Pulse Oximetry ABG pH (Temp Correct) (7.35-7.45) ABG pCO2 (Temp Corrct (35-46) mmHg POC ABG pO2 at Pt Temp POC ABG O2 Sat (90-95) % Rocael Test O2 Delivery Device Vent Mode POC FiO2 % End Tidal CO2 POC Sodium (135-144) mmol/L Sodium 145 (136-145) mmol/L POC Potassium (3.3-5.0) mmol/L Potassium 2.8 L (3.5-5.1) mmol/L Chloride 107 (98-107) mmol/L Carbon Dioxide 29 (21-32) mmol/L Anion Gap 9 (3-11) BUN 37 H (6-23) mg/dl Creatinine 1.06 (0.6-1.4) mg/dl Est Cr Clr Drug Dosing 65.3 ml/min eGFR 79.35 BUN/Creatinine Ratio 34.9 H (10-20) Glucose 163 H (70-99(Fasting)) mg/dl POC Glucose 145 H 158 H (70-99) mg/dl POC Glucose (other) (70-99) mg/dl Estimat Average Glucose mg/dl Hemoglobin A1c (4.5-5.6) % Calcium 8.0 L (8.6-10.3) mg/dl Phosphorus (2.5-4.9) mg/dl Magnesium 2.1 (1.7-2.4) mg/dl Unsaturated IBC (155-355) mcg/dl Total Bilirubin (0.2-1.0) mg/dl Direct Bilirubin (0-0.2) mg/dl AST (13-39) U/L ALT (7-52) U/L Alkaline Phosphatase (34-104) U/L Lactate Dehydrogenase (86-244) U/L Total Protein (6.0-8.3) gm/dl Albumin (3.4-5.0) gm/dl Random Cortisol mcg/dl Fluid Neutrophils % % Fluid Lymphocytes % % Fluid Basophils % % Fluid Meso/Macro/Howell % % Fluid Comment Pleural Fluid Source Pleural Color Pleural Appearance Pleural pH (7.3-7.4) Pleural WBC (Auto) /uL Pleural RBC (Auto) /uL Pleural Total Protein gm/dl Pleural LDH U/L Pleural Glucose mg/dl Pleural Amylase U/L Stool Occult Bld Scrn (Negative) Stl C. cayetanensis PCR (NotDetected) Stool Rotavirus A PCR (NotDetected) Stl Adenov F 40/41 PCR (NotDetected) Stool Astrovirus (PCR) (NotDetected) Stool Campylobacter PCR (NotDetected) Stl C. diff Tox B Gene (Neg) Stl C.difficile Tox A&B (Negative) Stool Cryptosporidium PCR (NotDetected) Stl E.coli Shiga Tox PCR (NotDetected) Stl Enterotoxigenic E PCR (NotDetected) Stool EPEC (PCR) (NotDetected) Stool EAEC (PCR) (NotDetected) Stl E. histolytica PCR (NotDetected) Stool Giardia Lamblia PCR (NotDetected) Stool Salmonella PCR (NotDetected) Stool Sapovirus (PCR) (NotDetected) Stl P. shigelloides PCR (NotDetected) Stl Shigella/EIEC PCR (NotDetected) St Y.enterocolitica PCR (NotDetected) Stool Vibrio (PCR) (NotDetected) Stl Vibrio cholerae PCR (NotDetected) Stl Norovirus GI/GII PCR (NotDetected) YAQUELIN Screen (NEGATIVE) SS-A/Ro Antibody SS-B/La Antibody Sm ([place]) Antibody CERTIFIED SUBSTANCE ABUSE COUNSELOR Antibody Scl-70 Scleroderma Ab Anti-ds DNA (Crithidia) (NEGATIVE) Chromatin Antibody Anti-Centromere Ab Thyroid Antimicrosomal (<9) IU/mL Anti-Cardiolipin IgG Ab Anti-Cardiolipin IgA Ab APL-U/mL Anti-Cardiolipin IgM Ab Complement C3 (82-185) mg/dL Complement C4 (15-53) mg/dL Blood Parasites ID Blood Type Antibody Screen Crossmatch 12/04/24 12/04/24 12/04/24 Range/Units 23:19 17:53 15:17 WBC (4.8-10.8) K/ul RBC (4.70-6.10) M/uL Hgb (14.0-18.0) g/dl POC Hgb (14.0-18.0) g/dl Hct (42.0-52.0) % POC Hct (42-52) % MCV (80.0-100.0) fL MCH (25.0-34.0) pg MCHC (32.0-36.0) g/dL RDW Std Deviation RDW Coeff of Jourdan Plt Count (130-400) K/uL MPV Immature Gran % (Auto) % Neut % (Auto) % Lymph % (Auto) % Howell % (Auto) % Eos % (Auto) % Baso % (Auto) % Neut # (Auto) (1.40-6.50) K/uL Lymph # (Auto) (1.20-3.40) K/uL Howell # (Auto) (0.11-0.59) K/uL Eos # (Auto) (0.00-0.50) K/uL Baso # (Auto) (0.00-0.20) K/uL Immature Gran # (Auto) (0.01-0.20) K/uL Absolute Nucleated RBC (0.00-0.12) K/uL Nucleated RBC % (auto) % Neutrophils % (Manual) Band Neutrophils % Lymphocytes % (Manual) Prolymphocyte % Reactive Lymphs % (Man) Monocytes % (Manual) Eosinophils % (Manual) Basophils % (Manual) Metamyelocytes % (Man) Myelocytes % (Man) Promyelocytes % (Man) Blast Cells % (Manual) Plasma Cell % (Manual) Other Cells % Nucleated RBC % Neutrophils # (Manual) Band Neutrophils # Total Absolute Neuts Lymphocytes # (Manual) Prolymphocyte # Reactive Lymphs # Total Abs Lymphocytes Monocytes # (Manual) Eosinophils # (Manual) Basophils # (Manual) Metamyelocytes # (Man) Myelocytes # (Manual) Promyelocytes # (Man) Blast Cells # (Man) Plasma Cell # (Manual) Other Cells # Nucleated RBCs # (Man) Hypersegmented Neuts Hyposegmented Neuts Hypogranular Neuts Large Granular Lymphs # Lrg Granular Lymphs Hairy Cells Smudge Cells Toxic Granulation Toxic Vacuolation Dohle Bodies Alejandra Rods Platelet Estimate Hypogranular Platelets Giant Platelets Platelet Satelliting RBC Morphology Polychromasia Hypochromasia Poikilocytosis Basophilic Stippling Anisocytosis Microcytosis Macrocytosis Spherocytes Pappenheimer Bodies Sickle Cells Target Cells Tear Drop Cells Ovalocytes Stomatocytes Andrews-[place] Bodies Echinocytes Acanthocytes (Spur) Rouleaux RBC Agglutinates Schistocytes Sezary Cell Haptoglobin (43-212) mg/dL PT (9.0-12.0) Seconds INR (0.9-1.1) Fibrinogen (184-400) mg/dl Factor VIII Activity (55 - 145) % Specimen Type Sample Site POC pH (7.35-7.45) POC pCO2 (35-46) mmHg POC pO2 (80-95) mmHg POC HCO3 (19-24) deidra/L POC Total CO2 (24-31) mmol/L POC Base Excess (-9-1.8) deidra/L O2 Sat Pulse Oximetry ABG pH (Temp Correct) (7.35-7.45) ABG pCO2 (Temp Corrct (35-46) mmHg POC ABG pO2 at Pt Temp POC ABG O2 Sat (90-95) % Rocael Test O2 Delivery Device Vent Mode POC FiO2 % End Tidal CO2 POC Sodium (135-144) mmol/L Sodium (136-145) mmol/L POC Potassium (3.3-5.0) mmol/L Potassium 2.9 L D (3.5-5.1) mmol/L Chloride (98-107) mmol/L Carbon Dioxide (21-32) mmol/L Anion Gap (3-11) BUN (6-23) mg/dl Creatinine (0.6-1.4) mg/dl Est Cr Clr Drug Dosing ml/min eGFR BUN/Creatinine Ratio (10-20) Glucose (70-99(Fasting)) mg/dl POC Glucose 170 H 171 H (70-99) mg/dl POC Glucose (other) (70-99) mg/dl Estimat Average Glucose mg/dl Hemoglobin A1c (4.5-5.6) % Calcium (8.6-10.3) mg/dl Phosphorus (2.5-4.9) mg/dl Magnesium (1.7-2.4) mg/dl Unsaturated IBC (155-355) mcg/dl Total Bilirubin (0.2-1.0) mg/dl Direct Bilirubin (0-0.2) mg/dl AST (13-39) U/L ALT (7-52) U/L Alkaline Phosphatase (34-104) U/L Lactate Dehydrogenase (86-244) U/L Total Protein (6.0-8.3) gm/dl Albumin (3.4-5.0) gm/dl Random Cortisol mcg/dl Fluid Neutrophils % % Fluid Lymphocytes % % Fluid Basophils % % Fluid Meso/Macro/Howell % % Fluid Comment Pleural Fluid Source Pleural Color Pleural Appearance Pleural pH (7.3-7.4) Pleural WBC (Auto) /uL Pleural RBC (Auto) /uL Pleural Total Protein gm/dl Pleural LDH U/L Pleural Glucose mg/dl Pleural Amylase U/L Stool Occult Bld Scrn (Negative) Stl C. cayetanensis PCR (NotDetected) Stool Rotavirus A PCR (NotDetected) Stl Adenov F 40/41 PCR (NotDetected) Stool Astrovirus (PCR) (NotDetected) Stool Campylobacter PCR (NotDetected) Stl C. diff Tox B Gene (Neg) Stl C.difficile Tox A&B (Negative) Stool Cryptosporidium PCR (NotDetected) Stl E.coli Shiga Tox PCR (NotDetected) Stl Enterotoxigenic E PCR (NotDetected) Stool EPEC (PCR) (NotDetected) Stool EAEC (PCR) (NotDetected) Stl E. histolytica PCR (NotDetected) Stool Giardia Lamblia PCR (NotDetected) Stool Salmonella PCR (NotDetected) Stool Sapovirus (PCR) (NotDetected) Stl P. shigelloides PCR (NotDetected) Stl Shigella/EIEC PCR (NotDetected) St Y.enterocolitica PCR (NotDetected) Stool Vibrio (PCR) (NotDetected) Stl Vibrio cholerae PCR (NotDetected) Stl Norovirus GI/GII PCR (NotDetected) Y[place]QUELIN Screen (NEGATIVE) SS-A/Ro Antibody SS-B/La Antibody Sm ([place]) Antibody CERTIFIED SUBSTANCE ABUSE COUNSELOR Antibody Scl-70 Scleroderma Ab Anti-ds DNA (Crithidia) (NEGATIVE) Chromatin Antibody Anti-Centromere Ab Thyroid Antimicrosomal (<9) IU/mL Anti-Cardiolipin IgG Ab Anti-Cardiolipin IgA Ab APL-U/mL Anti-Cardiolipin IgM Ab Complement C3 (82-185) mg/dL Complement C4 (15-53) mg/dL Blood Parasites ID Blood Type Antibody Screen Crossmatch 12/04/24 12/04/24 12/04/24 Range/Units 14:28 13:32 12:51 WBC (4.8-10.8) K/ul RBC (4.70-6.10) M/uL Hgb (14.0-18.0) g/dl POC Hgb (14.0-18.0) g/dl Hct (42.0-52.0) % POC Hct (42-52) % MCV (80.0-100.0) fL MCH (25.0-34.0) pg MCHC (32.0-36.0) g/dL RDW Std Deviation RDW Coeff of Jourdan Plt Count (130-400) K/uL MPV Immature Gran % (Auto) % Neut % (Auto) % Lymph % (Auto) % Howell % (Auto) % Eos % (Auto) % Baso % (Auto) % Neut # (Auto) (1.40-6.50) K/uL Lymph # (Auto) (1.20-3.40) K/uL Howell # (Auto) (0.11-0.59) K/uL Eos # (Auto) (0.00-0.50) K/uL Baso # (Auto) (0.00-0.20) K/uL Immature Gran # (Auto) (0.01-0.20) K/uL Absolute Nucleated RBC (0.00-0.12) K/uL Nucleated RBC % (auto) % Neutrophils % (Manual) Band Neutrophils % Lymphocytes % (Manual) Prolymphocyte % Reactive Lymphs % (Man) Monocytes % (Manual) Eosinophils % (Manual) Basophils % (Manual) Metamyelocytes % (Man) Myelocytes % (Man) Promyelocytes % (Man) Blast Cells % (Manual) Plasma Cell % (Manual) Other Cells % Nucleated RBC % Neutrophils # (Manual) Band Neutrophils # Total Absolute Neuts Lymphocytes # (Manual) Prolymphocyte # Reactive Lymphs # Total Abs Lymphocytes Monocytes # (Manual) Eosinophils # (Manual) Basophils # (Manual) Metamyelocytes # (Man) Myelocytes # (Manual) Promyelocytes # (Man) Blast Cells # (Man) Plasma Cell # (Manual) Other Cells # Nucleated RBCs # (Man) Hypersegmented Neuts Hyposegmented Neuts Hypogranular Neuts Large Granular Lymphs # Lrg Granular Lymphs Hairy Cells Smudge Cells Toxic Granulation Toxic Vacuolation Dohle Bodies Alejandra Rods Platelet Estimate Hypogranular Platelets Giant Platelets Platelet Satelliting RBC Morphology Polychromasia Hypochromasia Poikilocytosis Basophilic Stippling Anisocytosis Microcytosis Macrocytosis Spherocytes Pappenheimer Bodies Sickle Cells Target Cells Tear Drop Cells Ovalocytes Stomatocytes Andrews-[place] Bodies Echinocytes Acanthocytes (Spur) Rouleaux RBC Agglutinates Schistocytes Sezary Cell Haptoglobin (43-212) mg/dL PT (9.0-12.0) Seconds INR (0.9-1.1) Fibrinogen (184-400) mg/dl Factor VIII Activity (55 - 145) % Specimen Type Sample Site POC pH (7.35-7.45) POC pCO2 (35-46) mmHg POC pO2 (80-95) mmHg POC HCO3 (19-24) deidra/L POC Total CO2 (24-31) mmol/L POC Base Excess (-9-1.8) dedira/L O2 Sat Pulse Oximetry ABG pH (Temp Correct) (7.35-7.45) ABG pCO2 (Temp Corrct (35-46) mmHg POC ABG pO2 at Pt Temp POC ABG O2 Sat (90-95) % Rocael Test O2 Delivery Device Vent Mode POC FiO2 % End Tidal CO2 POC Sodium (135-144) mmol/L Sodium 143 (136-145) mmol/L POC Potassium (3.3-5.0) mmol/L Potassium TNP Cancelled TNP (3.5-5.1) mmol/L Chloride 108 H (98-107) mmol/L Carbon Dioxide 26 (21-32) mmol/L Anion Gap 9 (3-11) BUN 38 H (6-23) mg/dl Creatinine 1.11 (0.6-1.4) mg/dl Est Cr Clr Drug Dosing 62.4 ml/min eGFR 75.08 BUN/Creatinine Ratio 34.2 H (10-20) Glucose 179 H (70-99(Fasting)) mg/dl POC Glucose (70-99) mg/dl POC Glucose (other) (70-99) mg/dl Estimat Average Glucose mg/dl Hemoglobin A1c (4.5-5.6) % Calcium 7.5 L (8.6-10.3) mg/dl Phosphorus (2.5-4.9) mg/dl Magnesium (1.7-2.4) mg/dl Unsaturated IBC (155-355) mcg/dl Total Bilirubin (0.2-1.0) mg/dl Direct Bilirubin (0-0.2) mg/dl AST (13-39) U/L ALT (7-52) U/L Alkaline Phosphatase (34-104) U/L Lactate Dehydrogenase (86-244) U/L Total Protein (6.0-8.3) gm/dl Albumin (3.4-5.0) gm/dl Random Cortisol mcg/dl Fluid Neutrophils % % Fluid Lymphocytes % % Fluid Basophils % % Fluid Meso/Macro/Howell % % Fluid Comment Pleural Fluid Source Pleural Color Pleural Appearance Pleural pH (7.3-7.4) Pleural WBC (Auto) /uL Pleural RBC (Auto) /uL Pleural Total Protein gm/dl Pleural LDH U/L Pleural Glucose mg/dl Pleural Amylase U/L Stool Occult Bld Scrn (Negative) Stl C. cayetanensis PCR (NotDetected) Stool Rotavirus A PCR (NotDetected) Stl Adenov F 40/41 PCR (NotDetected) Stool Astrovirus (PCR) (NotDetected) Stool Campylobacter PCR (NotDetected) Stl C. diff Tox B Gene (Neg) Stl C.difficile Tox A&B (Negative) Stool Cryptosporidium PCR (NotDetected) Stl E.coli Shiga Tox PCR (NotDetected) Stl Enterotoxigenic E PCR (NotDetected) Stool EPEC (PCR) (NotDetected) Stool EAEC (PCR) (NotDetected) Stl E. histolytica PCR (NotDetected) Stool Giardia Lamblia PCR (NotDetected) Stool Salmonella PCR (NotDetected) Stool Sapovirus (PCR) (NotDetected) Stl P. shigelloides PCR (NotDetected) Stl Shigella/EIEC PCR (NotDetected) St Y.enterocolitica PCR (NotDetected) Stool Vibrio (PCR) (NotDetected) Stl Vibrio cholerae PCR (NotDetected) Stl Norovirus GI/GII PCR (NotDetected) Y[place]QUELIN Screen (NEGATIVE) SS-A/Ro Antibody SS-B/La Antibody Sm ([place]) Antibody CERTIFIED SUBSTANCE ABUSE COUNSELOR Antibody Scl-70 Scleroderma Ab Anti-ds DNA (Crithidia) (NEGATIVE) Chromatin Antibody Anti-Centromere Ab Thyroid Antimicrosomal (<9) IU/mL Anti-Cardiolipin IgG Ab Anti-Cardiolipin IgA Ab APL-U/mL Anti-Cardiolipin IgM Ab Complement C3 (82-185) mg/dL Complement C4 (15-53) mg/dL Blood Parasites ID Blood Type Antibody Screen Crossmatch 12/04/24 12/04/24 12/03/24 Range/Units 11:45 04:46 23:41 WBC 24.01 H (4.8-10.8) K/ul RBC 4.08 L (4.70-6.10) M/uL Hgb 9.7 L (14.0-18.0) g/dl POC Hgb (14.0-18.0) g/dl Hct 31.2 L (42.0-52.0) % POC Hct (42-52) % MCV 76.5 L (80.0-100.0) fL MCH 23.8 L (25.0-34.0) pg MCHC 31.1 L (32.0-36.0) g/dL RDW Std Deviation RDW Coeff of Jourdan Plt Count 68 L (130-400) K/uL MPV Immature Gran % (Auto) % Neut % (Auto) % Lymph % (Auto) % Howell % (Auto) % Eos % (Auto) % Baso % (Auto) % Neut # (Auto) (1.40-6.50) K/uL Lymph # (Auto) (1.20-3.40) K/uL Howell # (Auto) (0.11-0.59) K/uL Eos # (Auto) (0.00-0.50) K/uL Baso # (Auto) (0.00-0.20) K/uL Immature Gran # (Auto) (0.01-0.20) K/uL Absolute Nucleated RBC 0.12 (0.00-0.12) K/uL Nucleated RBC % (auto) 0.5 % Neutrophils % (Manual) Band Neutrophils % Lymphocytes % (Manual) Prolymphocyte % Reactive Lymphs % (Man) Monocytes % (Manual) Eosinophils % (Manual) Basophils % (Manual) Metamyelocytes % (Man) Myelocytes % (Man) Promyelocytes % (Man) Blast Cells % (Manual) Plasma Cell % (Manual) Other Cells % Nucleated RBC % Neutrophils # (Manual) Band Neutrophils # Total Absolute Neuts Lymphocytes # (Manual) Prolymphocyte # Reactive Lymphs # Total Abs Lymphocytes Monocytes # (Manual) Eosinophils # (Manual) Basophils # (Manual) Metamyelocytes # (Man) Myelocytes # (Manual) Promyelocytes # (Man) Blast Cells # (Man) Plasma Cell # (Manual) Other Cells # Nucleated RBCs # (Man) Hypersegmented Neuts Hyposegmented Neuts Hypogranular Neuts Large Granular Lymphs # Lrg Granular Lymphs Hairy Cells Smudge Cells Toxic Granulation Toxic Vacuolation Dohle Bodies Alejandra Rods Platelet Estimate Hypogranular Platelets Giant Platelets Platelet Satelliting RBC Morphology Polychromasia Hypochromasia Poikilocytosis Basophilic Stippling Anisocytosis Microcytosis Macrocytosis Spherocytes Pappenheimer Bodies Sickle Cells Target Cells Tear Drop Cells Ovalocytes Stomatocytes Andrews-[place] Bodies Echinocytes Acanthocytes (Spur) Rouleaux RBC Agglutinates Schistocytes Sezary Cell Haptoglobin (43-212) mg/dL PT (9.0-12.0) Seconds INR (0.9-1.1) Fibrinogen (184-400) mg/dl Factor VIII Activity (55 - 145) % Specimen Type Sample Site POC pH (7.35-7.45) POC pCO2 (35-46) mmHg POC pO2 (80-95) mmHg POC HCO3 (19-24) deidra/L POC Total CO2 (24-31) mmol/L POC Base Excess (-9-1.8) deidra/L O2 Sat Pulse Oximetry ABG pH (Temp Correct) (7.35-7.45) ABG pCO2 (Temp Corrct (35-46) mmHg POC ABG pO2 at Pt Temp POC ABG O2 Sat (90-95) % Rocael Test O2 Delivery Device Vent Mode POC FiO2 % End Tidal CO2 POC Sodium (135-144) mmol/L Sodium 146 H (136-145) mmol/L POC Potassium (3.3-5.0) mmol/L Potassium 2.4 L* D (3.5-5.1) mmol/L Chloride 109 H (98-107) mmol/L Carbon Dioxide 26 (21-32) mmol/L Anion Gap 11 (3-11) BUN 39 H (6-23) mg/dl Creatinine 1.23 (0.6-1.4) mg/dl Est Cr Clr Drug Dosing 60.2 ml/min eGFR 66.38 BUN/Creatinine Ratio 31.7 H (10-20) Glucose 137 H (70-99(Fasting)) mg/dl POC Glucose 157 H 152 H (70-99) mg/dl POC Glucose (other) (70-99) mg/dl Estimat Average Glucose mg/dl Hemoglobin A1c (4.5-5.6) % Calcium 8.1 L (8.6-10.3) mg/dl Phosphorus 3.4 (2.5-4.9) mg/dl Magnesium 1.8 (1.7-2.4) mg/dl Unsaturated IBC (155-355) mcg/dl Total Bilirubin (0.2-1.0) mg/dl Direct Bilirubin (0-0.2) mg/dl AST (13-39) U/L ALT (7-52) U/L Alkaline Phosphatase (34-104) U/L Lactate Dehydrogenase (86-244) U/L Total Protein (6.0-8.3) gm/dl Albumin (3.4-5.0) gm/dl Random Cortisol mcg/dl Fluid Neutrophils % % Fluid Lymphocytes % % Fluid Basophils % % Fluid Meso/Macro/Howell % % Fluid Comment Pleural Fluid Source Pleural Color Pleural Appearance Pleural pH (7.3-7.4) Pleural WBC (Auto) /uL Pleural RBC (Auto) /uL Pleural Total Protein gm/dl Pleural LDH U/L Pleural Glucose mg/dl Pleural Amylase U/L Stool Occult Bld Scrn (Negative) Stl C. cayetanensis PCR (NotDetected) Stool Rotavirus A PCR (NotDetected) Stl Adenov F 40/41 PCR (NotDetected) Stool Astrovirus (PCR) (NotDetected) Stool Campylobacter PCR (NotDetected) Stl C. diff Tox B Gene (Neg) Stl C.difficile Tox A&B (Negative) Stool Cryptosporidium PCR (NotDetected) Stl E.coli Shiga Tox PCR (NotDetected) Stl Enterotoxigenic E PCR (NotDetected) Stool EPEC (PCR) (NotDetected) Stool EAEC (PCR) (NotDetected) Stl E. histolytica PCR (NotDetected) Stool Giardia Lamblia PCR (NotDetected) Stool Salmonella PCR (NotDetected) Stool Sapovirus (PCR) (NotDetected) Stl P. shigelloides PCR (NotDetected) Stl Shigella/EIEC PCR (NotDetected) St Y.enterocolitica PCR (NotDetected) Stool Vibrio (PCR) (NotDetected) Stl Vibrio cholerae PCR (NotDetected) Stl Norovirus GI/GII PCR (NotDetected) Y[place]QUELIN Screen (NEGATIVE) SS-A/Ro Antibody SS-B/La Antibody Sm ([place]) Antibody CERTIFIED SUBSTANCE ABUSE COUNSELOR Antibody Scl-70 Scleroderma Ab Anti-ds DNA (Crithidia) (NEGATIVE) Chromatin Antibody Anti-Centromere Ab Thyroid Antimicrosomal (<9) IU/mL Anti-Cardiolipin IgG Ab Anti-Cardiolipin IgA Ab APL-U/mL Anti-Cardiolipin IgM Ab Complement C3 (82-185) mg/dL Complement C4 (15-53) mg/dL Blood Parasites ID Blood Type Antibody Screen Crossmatch 12/03/24 12/03/24 12/03/24 Range/Units 17:51 11:09 04:16 WBC 17.58 H (4.8-10.8) K/ul RBC 3.46 L (4.70-6.10) M/uL Hgb 8.0 L (14.0-18.0) g/dl POC Hgb (14.0-18.0) g/dl Hct 26.6 L (42.0-52.0) % POC Hct (42-52) % MCV 76.9 L (80.0-100.0) fL MCH 23.1 L (25.0-34.0) pg MCHC 30.1 L (32.0-36.0) g/dL RDW Std Deviation RDW Coeff of Jourdan Plt Count 48 L (130-400) K/uL MPV Immature Gran % (Auto) % Neut % (Auto) % Lymph % (Auto) % Howell % (Auto) % Eos % (Auto) % Baso % (Auto) % Neut # (Auto) (1.40-6.50) K/uL Lymph # (Auto) (1.20-3.40) K/uL Howell # (Auto) (0.11-0.59) K/uL Eos # (Auto) (0.00-0.50) K/uL Baso # (Auto) (0.00-0.20) K/uL Immature Gran # (Auto) (0.01-0.20) K/uL Absolute Nucleated RBC 0.23 H (0.00-0.12) K/uL Nucleated RBC % (auto) 1.3 % Neutrophils % (Manual) Band Neutrophils % Lymphocytes % (Manual) Prolymphocyte % Reactive Lymphs % (Man) Monocytes % (Manual) Eosinophils % (Manual) Basophils % (Manual) Metamyelocytes % (Man) Myelocytes % (Man) Promyelocytes % (Man) Blast Cells % (Manual) Plasma Cell % (Manual) Other Cells % Nucleated RBC % Neutrophils # (Manual) Band Neutrophils # Total Absolute Neuts Lymphocytes # (Manual) Prolymphocyte # Reactive Lymphs # Total Abs Lymphocytes Monocytes # (Manual) Eosinophils # (Manual) Basophils # (Manual) Metamyelocytes # (Man) Myelocytes # (Manual) Promyelocytes # (Man) Blast Cells # (Man) Plasma Cell # (Manual) Other Cells # Nucleated RBCs # (Man) Hypersegmented Neuts Hyposegmented Neuts Hypogranular Neuts Large Granular Lymphs # Lrg Granular Lymphs Hairy Cells Smudge Cells Toxic Granulation Toxic Vacuolation Dohle Bodies Alejandra Rods Platelet Estimate Hypogranular Platelets Giant Platelets Platelet Satelliting RBC Morphology Polychromasia Hypochromasia Poikilocytosis Basophilic Stippling Anisocytosis Microcytosis Macrocytosis Spherocytes Pappenheimer Bodies Sickle Cells Target Cells Tear Drop Cells Ovalocytes Stomatocytes Andrews-[place] Bodies Echinocytes Acanthocytes (Spur) Rouleaux RBC Agglutinates Schistocytes Sezary Cell Haptoglobin (43-212) mg/dL PT (9.0-12.0) Seconds INR (0.9-1.1) Fibrinogen (184-400) mg/dl Factor VIII Activity (55 - 145) % Specimen Type Sample Site POC pH (7.35-7.45) POC pCO2 (35-46) mmHg POC pO2 (80-95) mmHg POC HCO3 (19-24) deidra/L POC Total CO2 (24-31) mmol/L POC Base Excess (-9-1.8) deidra/L O2 Sat Pulse Oximetry ABG pH (Temp Correct) (7.35-7.45) ABG pCO2 (Temp Corrct (35-46) mmHg POC ABG pO2 at Pt Temp POC ABG O2 Sat (90-95) % Rocael Test O2 Delivery Device Vent Mode POC FiO2 % End Tidal CO2 POC Sodium (135-144) mmol/L Sodium 141 (136-145) mmol/L POC Potassium (3.3-5.0) mmol/L Potassium 3.5 (3.5-5.1) mmol/L Chloride 109 H (98-107) mmol/L Carbon Dioxide 24 (21-32) mmol/L Anion Gap 8 (3-11) BUN 48 H (6-23) mg/dl Creatinine 1.52 H (0.6-1.4) mg/dl Est Cr Clr Drug Dosing 48.8 ml/min eGFR 51.49 BUN/Creatinine Ratio 31.6 H (10-20) Glucose 91 (70-99(Fasting)) mg/dl POC Glucose 140 H 104 H (70-99) mg/dl POC Glucose (other) (70-99) mg/dl Estimat Average Glucose mg/dl Hemoglobin A1c (4.5-5.6) % Calcium 7.5 L (8.6-10.3) mg/dl Phosphorus 2.9 (2.5-4.9) mg/dl Magnesium 2.0 (1.7-2.4) mg/dl Unsaturated IBC (155-355) mcg/dl Total Bilirubin (0.2-1.0) mg/dl Direct Bilirubin (0-0.2) mg/dl AST (13-39) U/L ALT (7-52) U/L Alkaline Phosphatase (34-104) U/L Lactate Dehydrogenase (86-244) U/L Total Protein (6.0-8.3) gm/dl Albumin (3.4-5.0) gm/dl Random Cortisol mcg/dl Fluid Neutrophils % % Fluid Lymphocytes % % Fluid Basophils % % Fluid Meso/Macro/Howell % % Fluid Comment Pleural Fluid Source Pleural Color Pleural Appearance Pleural pH (7.3-7.4) Pleural WBC (Auto) /uL Pleural RBC (Auto) /uL Pleural Total Protein gm/dl Pleural LDH U/L Pleural Glucose mg/dl Pleural Amylase U/L Stool Occult Bld Scrn (Negative) Stl C. cayetanensis PCR (NotDetected) Stool Rotavirus A PCR (NotDetected) Stl Adenov F 40/41 PCR (NotDetected) Stool Astrovirus (PCR) (NotDetected) Stool Campylobacter PCR (NotDetected) Stl C. diff Tox B Gene (Neg) Stl C.difficile Tox A&B (Negative) Stool Cryptosporidium PCR (NotDetected) Stl E.coli Shiga Tox PCR (NotDetected) Stl Enterotoxigenic E PCR (NotDetected) Stool EPEC (PCR) (NotDetected) Stool EAEC (PCR) (NotDetected) Stl E. histolytica PCR (NotDetected) Stool Giardia Lamblia PCR (NotDetected) Stool Salmonella PCR (NotDetected) Stool Sapovirus (PCR) (NotDetected) Stl P. shigelloides PCR (NotDetected) Stl Shigella/EIEC PCR (NotDetected) St Y.enterocolitica PCR (NotDetected) Stool Vibrio (PCR) (NotDetected) Stl Vibrio cholerae PCR (NotDetected) Stl Norovirus GI/GII PCR (NotDetected) YAQUELIN Screen (NEGATIVE) SS-A/Ro Antibody SS-B/La Antibody Sm ([place]) Antibody CERTIFIED SUBSTANCE ABUSE COUNSELOR Antibody Scl-70 Scleroderma Ab Anti-ds DNA (Crithidia) (NEGATIVE) Chromatin Antibody Anti-Centromere Ab Thyroid Antimicrosomal (<9) IU/mL Anti-Cardiolipin IgG Ab Anti-Cardiolipin IgA Ab APL-U/mL Anti-Cardiolipin IgM Ab Complement C3 (82-185) mg/dL Complement C4 (15-53) mg/dL Blood Parasites ID Blood Type Antibody Screen Crossmatch 12/03/24 12/02/24 12/02/24 Range/Units 00:57 16:51 11:51 WBC (4.8-10.8) K/ul RBC (4.70-6.10) M/uL Hgb (14.0-18.0) g/dl POC Hgb (14.0-18.0) g/dl Hct (42.0-52.0) % POC Hct (42-52) % MCV (80.0-100.0) fL MCH (25.0-34.0) pg MCHC (32.0-36.0) g/dL RDW Std Deviation RDW Coeff of Jourdan Plt Count (130-400) K/uL MPV Immature Gran % (Auto) % Neut % (Auto) % Lymph % (Auto) % Howell % (Auto) % Eos % (Auto) % Baso % (Auto) % Neut # (Auto) (1.40-6.50) K/uL Lymph # (Auto) (1.20-3.40) K/uL Howell # (Auto) (0.11-0.59) K/uL Eos # (Auto) (0.00-0.50) K/uL Baso # (Auto) (0.00-0.20) K/uL Immature Gran # (Auto) (0.01-0.20) K/uL Absolute Nucleated RBC (0.00-0.12) K/uL Nucleated RBC % (auto) % Neutrophils % (Manual) Band Neutrophils % Lymphocytes % (Manual) Prolymphocyte % Reactive Lymphs % (Man) Monocytes % (Manual) Eosinophils % (Manual) Basophils % (Manual) Metamyelocytes % (Man) Myelocytes % (Man) Promyelocytes % (Man) Blast Cells % (Manual) Plasma Cell % (Manual) Other Cells % Nucleated RBC % Neutrophils # (Manual) Band Neutrophils # Total Absolute Neuts Lymphocytes # (Manual) Prolymphocyte # Reactive Lymphs # Total Abs Lymphocytes Monocytes # (Manual) Eosinophils # (Manual) Basophils # (Manual) Metamyelocytes # (Man) Myelocytes # (Manual) Promyelocytes # (Man) Blast Cells # (Man) Plasma Cell # (Manual) Other Cells # Nucleated RBCs # (Man) Hypersegmented Neuts Hyposegmented Neuts Hypogranular Neuts Large Granular Lymphs # Lrg Granular Lymphs Hairy Cells Smudge Cells Toxic Granulation Toxic Vacuolation Dohle Bodies Alejandra Rods Platelet Estimate Hypogranular Platelets Giant Platelets Platelet Satelliting RBC Morphology Polychromasia Hypochromasia Poikilocytosis Basophilic Stippling Anisocytosis Microcytosis Macrocytosis Spherocytes Pappenheimer Bodies Sickle Cells Target Cells Tear Drop Cells Ovalocytes Stomatocytes [place] Bodies Echinocytes Acanthocytes (Spur) Rouleaux RBC Agglutinates Schistocytes Sezary Cell Haptoglobin (43-212) mg/dL PT (9.0-12.0) Seconds INR (0.9-1.1) Fibrinogen (184-400) mg/dl Factor VIII Activity (55 - 145) % Specimen Type Sample Site POC pH (7.35-7.45) POC pCO2 (35-46) mmHg POC pO2 (80-95) mmHg POC HCO3 (19-24) deidra/L POC Total CO2 (24-31) mmol/L POC Base Excess (-9-1.8) deidra/L O2 Sat Pulse Oximetry ABG pH (Temp Correct) (7.35-7.45) ABG pCO2 (Temp Corrct (35-46) mmHg POC ABG pO2 at Pt Temp POC ABG O2 Sat (90-95) % Rocael Test O2 Delivery Device Vent Mode POC FiO2 % End Tidal CO2 POC Sodium (135-144) mmol/L Sodium (136-145) mmol/L POC Potassium (3.3-5.0) mmol/L Potassium (3.5-5.1) mmol/L Chloride (98-107) mmol/L Carbon Dioxide (21-32) mmol/L Anion Gap (3-11) BUN (6-23) mg/dl Creatinine (0.6-1.4) mg/dl Est Cr Clr Drug Dosing ml/min eGFR BUN/Creatinine Ratio (10-20) Glucose (70-99(Fasting)) mg/dl POC Glucose 95 105 H 149 H (70-99) mg/dl POC Glucose (other) (70-99) mg/dl Estimat Average Glucose mg/dl Hemoglobin A1c (4.5-5.6) % Calcium (8.6-10.3) mg/dl Phosphorus (2.5-4.9) mg/dl Magnesium (1.7-2.4) mg/dl Unsaturated IBC (155-355) mcg/dl Total Bilirubin (0.2-1.0) mg/dl Direct Bilirubin (0-0.2) mg/dl AST (13-39) U/L ALT (7-52) U/L Alkaline Phosphatase (34-104) U/L Lactate Dehydrogenase (86-244) U/L Total Protein (6.0-8.3) gm/dl Albumin (3.4-5.0) gm/dl Random Cortisol mcg/dl Fluid Neutrophils % % Fluid Lymphocytes % % Fluid Basophils % % Fluid Meso/Macro/Howell % % Fluid Comment Pleural Fluid Source Pleural Color Pleural Appearance Pleural pH (7.3-7.4) Pleural WBC (Auto) /uL Pleural RBC (Auto) /uL Pleural Total Protein gm/dl Pleural LDH U/L Pleural Glucose mg/dl Pleural Amylase U/L Stool Occult Bld Scrn (Negative) Stl C. cayetanensis PCR (NotDetected) Stool Rotavirus A PCR (NotDetected) Stl Adenov F 40/41 PCR (NotDetected) Stool Astrovirus (PCR) (NotDetected) Stool Campylobacter PCR (NotDetected) Stl C. diff Tox B Gene (Neg) Stl C.difficile Tox A&B (Negative) Stool Cryptosporidium PCR (NotDetected) Stl E.coli Shiga Tox PCR (NotDetected) Stl Enterotoxigenic E PCR (NotDetected) Stool EPEC (PCR) (NotDetected) Stool EAEC (PCR) (NotDetected) Stl E. histolytica PCR (NotDetected) Stool Giardia Lamblia PCR (NotDetected) Stool Salmonella PCR (NotDetected) Stool Sapovirus (PCR) (NotDetected) Stl P. shigelloides PCR (NotDetected) Stl Shigella/EIEC PCR (NotDetected) St Y.enterocolitica PCR (NotDetected) Stool Vibrio (PCR) (NotDetected) Stl Vibrio cholerae PCR (NotDetected) Stl Norovirus GI/GII PCR (NotDetected) YAQUELIN Screen (NEGATIVE) SS-A/Ro Antibody SS-B/La Antibody Sm ([place]) Antibody CERTIFIED SUBSTANCE ABUSE COUNSELOR Antibody Scl-70 Scleroderma Ab Anti-ds DNA (Crithidia) (NEGATIVE) Chromatin Antibody Anti-Centromere Ab Thyroid Antimicrosomal (<9) IU/mL Anti-Cardiolipin IgG Ab Anti-Cardiolipin IgA Ab APL-U/mL Anti-Cardiolipin IgM Ab Complement C3 (82-185) mg/dL Complement C4 (15-53) mg/dL Blood Parasites ID Blood Type Antibody Screen Crossmatch 12/02/24 12/02/24 12/02/24 Range/Units 09:00 08:51 05:18 WBC 15.51 H (4.8-10.8) K/ul RBC 3.26 L (4.70-6.10) M/uL Hgb 7.3 L (14.0-18.0) g/dl POC Hgb (14.0-18.0) g/dl Hct 24.8 L (42.0-52.0) % POC Hct (42-52) % MCV 76.1 L (80.0-100.0) fL MCH 22.4 L (25.0-34.0) pg MCHC 29.4 L (32.0-36.0) g/dL RDW Std Deviation RDW Coeff of Jourdan Plt Count 42 L (130-400) K/uL MPV Immature Gran % (Auto) 1.0 % Neut % (Auto) 80.7 % Lymph % (Auto) 8.4 % Howell % (Auto) 9.5 % Eos % (Auto) 0.2 % Baso % (Auto) 0.2 % Neut # (Auto) 12.51 H (1.40-6.50) K/uL Lymph # (Auto) 1.31 (1.20-3.40) K/uL Howell # (Auto) 1.48 H (0.11-0.59) K/uL Eos # (Auto) 0.03 (0.00-0.50) K/uL Baso # (Auto) 0.03 (0.00-0.20) K/uL Immature Gran # (Auto) 0.15 (0.01-0.20) K/uL Absolute Nucleated RBC 0.24 H (0.00-0.12) K/uL Nucleated RBC % (auto) 1.5 % Neutrophils % (Manual) Band Neutrophils % Lymphocytes % (Manual) Prolymphocyte % Reactive Lymphs % (Man) Monocytes % (Manual) Eosinophils % (Manual) Basophils % (Manual) Metamyelocytes % (Man) Myelocytes % (Man) Promyelocytes % (Man) Blast Cells % (Manual) Plasma Cell % (Manual) Other Cells % Nucleated RBC % Neutrophils # (Manual) Band Neutrophils # Total Absolute Neuts Lymphocytes # (Manual) Prolymphocyte # Reactive Lymphs # Total Abs Lymphocytes Monocytes # (Manual) Eosinophils # (Manual) Basophils # (Manual) Metamyelocytes # (Man) Myelocytes # (Manual) Promyelocytes # (Man) Blast Cells # (Man) Plasma Cell # (Manual) Other Cells # Nucleated RBCs # (Man) Hypersegmented Neuts Hyposegmented Neuts Hypogranular Neuts Large Granular Lymphs # Lrg Granular Lymphs Hairy Cells Smudge Cells Toxic Granulation Toxic Vacuolation Dohle Bodies Alejandra Rods Platelet Estimate Hypogranular Platelets Giant Platelets Platelet Satelliting RBC Morphology Polychromasia 1+ Hypochromasia Present Poikilocytosis Basophilic Stippling Anisocytosis Microcytosis Macrocytosis Spherocytes Pappenheimer Bodies Sickle Cells Target Cells Tear Drop Cells Ovalocytes Stomatocytes Andrews-[place] Bodies Echinocytes Acanthocytes (Spur) Rouleaux RBC Agglutinates Schistocytes Sezary Cell Haptoglobin 118 (43-212) mg/dL PT 18.1 H (9.0-12.0) Seconds INR 1.8 H (0.9-1.1) Fibrinogen 282 (184-400) mg/dl Factor VIII Activity See Scanned Report (55 - 145) % Specimen Type Sample Site POC pH (7.35-7.45) POC pCO2 (35-46) mmHg POC pO2 (80-95) mmHg POC HCO3 (19-24) deidra/L POC Total CO2 (24-31) mmol/L POC Base Excess (-9-1.8) deidra/L O2 Sat Pulse Oximetry ABG pH (Temp Correct) (7.35-7.45) ABG pCO2 (Temp Corrct (35-46) mmHg POC ABG pO2 at Pt Temp POC ABG O2 Sat (90-95) % Rocael Test O2 Delivery Device Vent Mode POC FiO2 % End Tidal CO2 POC Sodium (135-144) mmol/L Sodium 136 (136-145) mmol/L POC Potassium (3.3-5.0) mmol/L Potassium 3.8 (3.5-5.1) mmol/L Chloride 106 (98-107) mmol/L Carbon Dioxide 23 (21-32) mmol/L Anion Gap 7 (3-11) BUN 50 H (6-23) mg/dl Creatinine 1.58 H D (0.6-1.4) mg/dl Est Cr Clr Drug Dosing 46.9 ml/min eGFR 49.15 BUN/Creatinine Ratio 31.6 H (10-20) Glucose 121 H (70-99(Fasting)) mg/dl POC Glucose (70-99) mg/dl POC Glucose (other) (70-99) mg/dl Estimat Average Glucose 111 mg/dl Hemoglobin A1c 5.5 (4.5-5.6) % Calcium 7.6 L (8.6-10.3) mg/dl Phosphorus 3.2 (2.5-4.9) mg/dl Magnesium 2.0 (1.7-2.4) mg/dl Unsaturated IBC (155-355) mcg/dl Total Bilirubin (0.2-1.0) mg/dl Direct Bilirubin (0-0.2) mg/dl AST (13-39) U/L ALT (7-52) U/L Alkaline Phosphatase (34-104) U/L Lactate Dehydrogenase 120 (86-244) U/L Total Protein (6.0-8.3) gm/dl Albumin (3.4-5.0) gm/dl Random Cortisol mcg/dl Fluid Neutrophils % % Fluid Lymphocytes % % Fluid Basophils % % Fluid Meso/Macro/Howell % % Fluid Comment Pleural Fluid Source Pleural Color Pleural Appearance Pleural pH (7.3-7.4) Pleural WBC (Auto) /uL Pleural RBC (Auto) /uL Pleural Total Protein gm/dl Pleural LDH U/L Pleural Glucose mg/dl Pleural Amylase U/L Stool Occult Bld Scrn (Negative) Stl C. cayetanensis PCR (NotDetected) Stool Rotavirus A PCR (NotDetected) Stl Adenov F 40/41 PCR (NotDetected) Stool Astrovirus (PCR) (NotDetected) Stool Campylobacter PCR (NotDetected) Stl C. diff Tox B Gene (Neg) Stl C.difficile Tox A&B (Negative) Stool Cryptosporidium PCR (NotDetected) Stl E.coli Shiga Tox PCR (NotDetected) Stl Enterotoxigenic E PCR (NotDetected) Stool EPEC (PCR) (NotDetected) Stool EAEC (PCR) (NotDetected) Stl E. histolytica PCR (NotDetected) Stool Giardia Lamblia PCR (NotDetected) Stool Salmonella PCR (NotDetected) Stool Sapovirus (PCR) (NotDetected) Stl P. shigelloides PCR (NotDetected) Stl Shigella/EIEC PCR (NotDetected) St Y.enterocolitica PCR (NotDetected) Stool Vibrio (PCR) (NotDetected) Stl Vibrio cholerae PCR (NotDetected) Stl Norovirus GI/GII PCR (NotDetected) YAQUELIN Screen NEGATIVE (NEGATIVE) SS-A/Ro Antibody TNP SS-B/La Antibody TNP Sm ([place]) Antibody TNP CERTIFIED SUBSTANCE ABUSE COUNSELOR Antibody TNP Scl-70 Scleroderma Ab TNP Anti-ds DNA (Crithidia) NEGATIVE (NEGATIVE) Chromatin Antibody TNP Anti-Centromere Ab TNP Thyroid Antimicrosomal 1 (<9) IU/mL Anti-Cardiolipin IgG Ab TNP Anti-Cardiolipin IgA Ab 4.8 APL-U/mL Anti-Cardiolipin IgM Ab TNP Complement C3 32 L (82-185) mg/dL Complement C4 6 L (15-53) mg/dL Blood Parasites ID Blood Type Antibody Screen Crossmatch 12/02/24 12/02/24 12/01/24 Range/Units 05:09 00:41 18:24 WBC (4.8-10.8) K/ul RBC (4.70-6.10) M/uL Hgb (14.0-18.0) g/dl POC Hgb (14.0-18.0) g/dl Hct (42.0-52.0) % POC Hct (42-52) % MCV (80.0-100.0) fL MCH (25.0-34.0) pg MCHC (32.0-36.0) g/dL RDW Std Deviation RDW Coeff of Jourdan Plt Count (130-400) K/uL MPV Immature Gran % (Auto) % Neut % (Auto) % Lymph % (Auto) % Howell % (Auto) % Eos % (Auto) % Baso % (Auto) % Neut # (Auto) (1.40-6.50) K/uL Lymph # (Auto) (1.20-3.40) K/uL Howell # (Auto) (0.11-0.59) K/uL Eos # (Auto) (0.00-0.50) K/uL Baso # (Auto) (0.00-0.20) K/uL Immature Gran # (Auto) (0.01-0.20) K/uL Absolute Nucleated RBC (0.00-0.12) K/uL Nucleated RBC % (auto) % Neutrophils % (Manual) Band Neutrophils % Lymphocytes % (Manual) Prolymphocyte % Reactive Lymphs % (Man) Monocytes % (Manual) Eosinophils % (Manual) Basophils % (Manual) Metamyelocytes % (Man) Myelocytes % (Man) Promyelocytes % (Man) Blast Cells % (Manual) Plasma Cell % (Manual) Other Cells % Nucleated RBC % Neutrophils # (Manual) Band Neutrophils # Total Absolute Neuts Lymphocytes # (Manual) Prolymphocyte # Reactive Lymphs # Total Abs Lymphocytes Monocytes # (Manual) Eosinophils # (Manual) Basophils # (Manual) Metamyelocytes # (Man) Myelocytes # (Manual) Promyelocytes # (Man) Blast Cells # (Man) Plasma Cell # (Manual) Other Cells # Nucleated RBCs # (Man) Hypersegmented Neuts Hyposegmented Neuts Hypogranular Neuts Large Granular Lymphs # Lrg Granular Lymphs Hairy Cells Smudge Cells Toxic Granulation Toxic Vacuolation Dohle Bodies Alejandra Rods Platelet Estimate Hypogranular Platelets Giant Platelets Platelet Satelliting RBC Morphology Polychromasia Hypochromasia Poikilocytosis Basophilic Stippling Anisocytosis Microcytosis Macrocytosis Spherocytes Pappenheimer Bodies Sickle Cells Target Cells Tear Drop Cells Ovalocytes Stomatocytes Andrews-[place] Bodies Echinocytes Acanthocytes (Spur) Rouleaux RBC Agglutinates Schistocytes Sezary Cell Haptoglobin (43-212) mg/dL PT (9.0-12.0) Seconds INR (0.9-1.1) Fibrinogen (184-400) mg/dl Factor VIII Activity (55 - 145) % Specimen Type Sample Site POC pH (7.35-7.45) POC pCO2 (35-46) mmHg POC pO2 (80-95) mmHg POC HCO3 (19-24) deidra/L POC Total CO2 (24-31) mmol/L POC Base Excess (-9-1.8) deidra/L O2 Sat Pulse Oximetry ABG pH (Temp Correct) (7.35-7.45) ABG pCO2 (Temp Corrct (35-46) mmHg POC ABG pO2 at Pt Temp POC ABG O2 Sat (90-95) % Rocael Test O2 Delivery Device Vent Mode POC FiO2 % End Tidal CO2 POC Sodium (135-144) mmol/L Sodium (136-145) mmol/L POC Potassium (3.3-5.0) mmol/L Potassium (3.5-5.1) mmol/L Chloride (98-107) mmol/L Carbon Dioxide (21-32) mmol/L Anion Gap (3-11) BUN (6-23) mg/dl Creatinine (0.6-1.4) mg/dl Est Cr Clr Drug Dosing ml/min eGFR BUN/Creatinine Ratio (10-20) Glucose (70-99(Fasting)) mg/dl POC Glucose 129 H (70-99) mg/dl POC Glucose (other) 107 H 98 (70-99) mg/dl Estimat Average Glucose mg/dl Hemoglobin A1c (4.5-5.6) % Calcium (8.6-10.3) mg/dl Phosphorus (2.5-4.9) mg/dl Magnesium (1.7-2.4) mg/dl Unsaturated IBC (155-355) mcg/dl Total Bilirubin (0.2-1.0) mg/dl Direct Bilirubin (0-0.2) mg/dl AST (13-39) U/L ALT (7-52) U/L Alkaline Phosphatase (34-104) U/L Lactate Dehydrogenase (86-244) U/L Total Protein (6.0-8.3) gm/dl Albumin (3.4-5.0) gm/dl Random Cortisol mcg/dl Fluid Neutrophils % % Fluid Lymphocytes % % Fluid Basophils % % Fluid Meso/Macro/Howell % % Fluid Comment Pleural Fluid Source Pleural Color Pleural Appearance Pleural pH (7.3-7.4) Pleural WBC (Auto) /uL Pleural RBC (Auto) /uL Pleural Total Protein gm/dl Pleural LDH U/L Pleural Glucose mg/dl Pleural Amylase U/L Stool Occult Bld Scrn (Negative) Stl C. cayetanensis PCR (NotDetected) Stool Rotavirus A PCR (NotDetected) Stl Adenov F 40/41 PCR (NotDetected) Stool Astrovirus (PCR) (NotDetected) Stool Campylobacter PCR (NotDetected) Stl C. diff Tox B Gene (Neg) Stl C.difficile Tox A&B (Negative) Stool Cryptosporidium PCR (NotDetected) Stl E.coli Shiga Tox PCR (NotDetected) Stl Enterotoxigenic E PCR (NotDetected) Stool EPEC (PCR) (NotDetected) Stool EAEC (PCR) (NotDetected) Stl E. histolytica PCR (NotDetected) Stool Giardia Lamblia PCR (NotDetected) Stool Salmonella PCR (NotDetected) Stool Sapovirus (PCR) (NotDetected) Stl P. shigelloides PCR (NotDetected) Stl Shigella/EIEC PCR (NotDetected) St Y.enterocolitica PCR (NotDetected) Stool Vibrio (PCR) (NotDetected) Stl Vibrio cholerae PCR (NotDetected) Stl Norovirus GI/GII PCR (NotDetected) YAQUELIN Screen (NEGATIVE) SS-A/Ro Antibody SS-B/La Antibody Sm ([place]) Antibody CERTIFIED SUBSTANCE ABUSE COUNSELOR Antibody Scl-70 Scleroderma Ab Anti-ds DNA (Crithidia) (NEGATIVE) Chromatin Antibody Anti-Centromere Ab Thyroid Antimicrosomal (<9) IU/mL Anti-Cardiolipin IgG Ab Anti-Cardiolipin IgA Ab APL-U/mL Anti-Cardiolipin IgM Ab Complement C3 (82-185) mg/dL Complement C4 (15-53) mg/dL Blood Parasites ID Blood Type Antibody Screen Crossmatch 12/01/24 12/01/24 12/01/24 Range/Units 13:56 13:07 04:05 WBC 17.45 H (4.8-10.8) K/ul RBC 3.09 L (4.70-6.10) M/uL Hgb 8.5 L 6.8 L* (14.0-18.0) g/dl POC Hgb (14.0-18.0) g/dl Hct 27.3 L 22.5 L (42.0-52.0) % POC Hct (42-52) % MCV 72.8 L (80.0-100.0) fL MCH 22.0 L (25.0-34.0) pg MCHC 30.2 L (32.0-36.0) g/dL RDW Std Deviation RDW Coeff of Jourdan Plt Count 60 L (130-400) K/uL MPV Immature Gran % (Auto) 0.9 % Neut % (Auto) 83.1 % Lymph % (Auto) 8.5 % Howell % (Auto) 7.0 % Eos % (Auto) 0.3 % Baso % (Auto) 0.2 % Neut # (Auto) 14.50 H (1.40-6.50) K/uL Lymph # (Auto) 1.48 (1.20-3.40) K/uL Howell # (Auto) 1.22 H (0.11-0.59) K/uL Eos # (Auto) 0.05 (0.00-0.50) K/uL Baso # (Auto) 0.04 (0.00-0.20) K/uL Immature Gran # (Auto) 0.16 (0.01-0.20) K/uL Absolute Nucleated RBC 0.25 H (0.00-0.12) K/uL Nucleated RBC % (auto) 1.4 % Neutrophils % (Manual) Band Neutrophils % Lymphocytes % (Manual) Prolymphocyte % Reactive Lymphs % (Man) Monocytes % (Manual) Eosinophils % (Manual) Basophils % (Manual) Metamyelocytes % (Man) Myelocytes % (Man) Promyelocytes % (Man) Blast Cells % (Manual) Plasma Cell % (Manual) Other Cells % Nucleated RBC % Neutrophils # (Manual) Band Neutrophils # Total Absolute Neuts Lymphocytes # (Manual) Prolymphocyte # Reactive Lymphs # Total Abs Lymphocytes Monocytes # (Manual) Eosinophils # (Manual) Basophils # (Manual) Metamyelocytes # (Man) Myelocytes # (Manual) Promyelocytes # (Man) Blast Cells # (Man) Plasma Cell # (Manual) Other Cells # Nucleated RBCs # (Man) Hypersegmented Neuts Hyposegmented Neuts Hypogranular Neuts Large Granular Lymphs # Lrg Granular Lymphs Hairy Cells Smudge Cells Toxic Granulation Toxic Vacuolation Dohle Bodies 1+ Alejandra Rods Platelet Estimate Hypogranular Platelets Giant Platelets Platelet Satelliting RBC Morphology Polychromasia Hypochromasia Present Poikilocytosis Basophilic Stippling Anisocytosis Microcytosis Macrocytosis Spherocytes Pappenheimer Bodies Sickle Cells Target Cells 1+ Tear Drop Cells 1+ Ovalocytes Stomatocytes Andrews-[place] Bodies Echinocytes Acanthocytes (Spur) Rouleaux RBC Agglutinates Schistocytes Sezary Cell Haptoglobin (43-212) mg/dL PT 18.1 H (9.0-12.0) Seconds INR 1.8 H (0.9-1.1) Fibrinogen (184-400) mg/dl Factor VIII Activity (55 - 145) % Specimen Type Sample Site POC pH (7.35-7.45) POC pCO2 (35-46) mmHg POC pO2 (80-95) mmHg POC HCO3 (19-24) deidra/L POC Total CO2 (24-31) mmol/L POC Base Excess (-9-1.8) deidra/L O2 Sat Pulse Oximetry ABG pH (Temp Correct) (7.35-7.45) ABG pCO2 (Temp Corrct (35-46) mmHg POC ABG pO2 at Pt Temp POC ABG O2 Sat (90-95) % Rocael Test O2 Delivery Device Vent Mode POC FiO2 % End Tidal CO2 POC Sodium (135-144) mmol/L Sodium 140 (136-145) mmol/L POC Potassium (3.3-5.0) mmol/L Potassium 3.5 (3.5-5.1) mmol/L Chloride 110 H (98-107) mmol/L Carbon Dioxide 22 (21-32) mmol/L Anion Gap 8 (3-11) BUN 56 H (6-23) mg/dl Creatinine 1.88 H D (0.6-1.4) mg/dl Est Cr Clr Drug Dosing 37.5 ml/min eGFR 39.90 BUN/Creatinine Ratio 29.8 H (10-20) Glucose 207 H (70-99(Fasting)) mg/dl POC Glucose (70-99) mg/dl POC Glucose (other) 72 (70-99) mg/dl Estimat Average Glucose mg/dl Hemoglobin A1c (4.5-5.6) % Calcium 7.3 L (8.6-10.3) mg/dl Phosphorus 3.2 D (2.5-4.9) mg/dl Magnesium 2.0 (1.7-2.4) mg/dl Unsaturated IBC 116 L (155-355) mcg/dl Total Bilirubin (0.2-1.0) mg/dl Direct Bilirubin (0-0.2) mg/dl AST (13-39) U/L ALT (7-52) U/L Alkaline Phosphatase (34-104) U/L Lactate Dehydrogenase (86-244) U/L Total Protein (6.0-8.3) gm/dl Albumin (3.4-5.0) gm/dl Random Cortisol 20.60 mcg/dl Fluid Neutrophils % % Fluid Lymphocytes % % Fluid Basophils % % Fluid Meso/Macro/Howell % % Fluid Comment Pleural Fluid Source Pleural Color Pleural Appearance Pleural pH (7.3-7.4) Pleural WBC (Auto) /uL Pleural RBC (Auto) /uL Pleural Total Protein gm/dl Pleural LDH U/L Pleural Glucose mg/dl Pleural Amylase U/L Stool Occult Bld Scrn (Negative) Stl C. cayetanensis PCR (NotDetected) Stool Rotavirus A PCR (NotDetected) Stl Adenov F 40/41 PCR (NotDetected) Stool Astrovirus (PCR) (NotDetected) Stool Campylobacter PCR (NotDetected) Stl C. diff Tox B Gene (Neg) Stl C.difficile Tox A&B (Negative) Stool Cryptosporidium PCR (NotDetected) Stl E.coli Shiga Tox PCR (NotDetected) Stl Enterotoxigenic E PCR (NotDetected) Stool EPEC (PCR) (NotDetected) Stool EAEC (PCR) (NotDetected) Stl E. histolytica PCR (NotDetected) Stool Giardia Lamblia PCR (NotDetected) Stool Salmonella PCR (NotDetected) Stool Sapovirus (PCR) (NotDetected) Stl P. shigelloides PCR (NotDetected) Stl Shigella/EIEC PCR (NotDetected) St Y.enterocolitica PCR (NotDetected) Stool Vibrio (PCR) (NotDetected) Stl Vibrio cholerae PCR (NotDetected) Stl Norovirus GI/GII PCR (NotDetected) YAQUELIN Screen (NEGATIVE) SS-A/Ro Antibody SS-B/La Antibody Sm ([place]) Antibody CERTIFIED SUBSTANCE ABUSE COUNSELOR Antibody Scl-70 Scleroderma Ab Anti-ds DNA (Crithidia) (NEGATIVE) Chromatin Antibody Anti-Centromere Ab Thyroid Antimicrosomal (<9) IU/mL Anti-Cardiolipin IgG Ab Anti-Cardiolipin IgA Ab APL-U/mL Anti-Cardiolipin IgM Ab Complement C3 (82-185) mg/dL Complement C4 (15-53) mg/dL Blood Parasites ID Blood Type O Positive Antibody Screen NEGATIVE Crossmatch See Detail 12/01/24 12/01/24 11/30/24 Range/Units 03:21 00:53 19:01 WBC (4.8-10.8) K/ul RBC (4.70-6.10) M/uL Hgb (14.0-18.0) g/dl POC Hgb 7.5 L (14.0-18.0) g/dl Hct (42.0-52.0) % POC Hct 22 L (42-52) % MCV (80.0-100.0) fL MCH (25.0-34.0) pg MCHC (32.0-36.0) g/dL RDW Std Deviation RDW Coeff of Jourdan Plt Count (130-400) K/uL MPV Immature Gran % (Auto) % Neut % (Auto) % Lymph % (Auto) % Howell % (Auto) % Eos % (Auto) % Baso % (Auto) % Neut # (Auto) (1.40-6.50) K/uL Lymph # (Auto) (1.20-3.40) K/uL Howell # (Auto) (0.11-0.59) K/uL Eos # (Auto) (0.00-0.50) K/uL Baso # (Auto) (0.00-0.20) K/uL Immature Gran # (Auto) (0.01-0.20) K/uL Absolute Nucleated RBC (0.00-0.12) K/uL Nucleated RBC % (auto) % Neutrophils % (Manual) Band Neutrophils % Lymphocytes % (Manual) Prolymphocyte % Reactive Lymphs % (Man) Monocytes % (Manual) Eosinophils % (Manual) Basophils % (Manual) Metamyelocytes % (Man) Myelocytes % (Man) Promyelocytes % (Man) Blast Cells % (Manual) Plasma Cell % (Manual) Other Cells % Nucleated RBC % Neutrophils # (Manual) Band Neutrophils # Total Absolute Neuts Lymphocytes # (Manual) Prolymphocyte # Reactive Lymphs # Total Abs Lymphocytes Monocytes # (Manual) Eosinophils # (Manual) Basophils # (Manual) Metamyelocytes # (Man) Myelocytes # (Manual) Promyelocytes # (Man) Blast Cells # (Man) Plasma Cell # (Manual) Other Cells # Nucleated RBCs # (Man) Hypersegmented Neuts Hyposegmented Neuts Hypogranular Neuts Large Granular Lymphs # Lrg Granular Lymphs Hairy Cells Smudge Cells Toxic Granulation Toxic Vacuolation Dohle Bodies Alejandra Rods Platelet Estimate Hypogranular Platelets Giant Platelets Platelet Satelliting RBC Morphology Polychromasia Hypochromasia Poikilocytosis Basophilic Stippling Anisocytosis Microcytosis Macrocytosis Spherocytes Pappenheimer Bodies Sickle Cells Target Cells Tear Drop Cells Ovalocytes Stomatocytes Andrews-[place] Bodies Echinocytes Acanthocytes (Spur) Rouleaux RBC Agglutinates Schistocytes Sezary Cell Haptoglobin (43-212) mg/dL PT (9.0-12.0) Seconds INR (0.9-1.1) Fibrinogen (184-400) mg/dl Factor VIII Activity (55 - 145) % Specimen Type Arterial Sample Site L Radial POC pH 7.40 (7.35-7.45) POC pCO2 31 L (35-46) mmHg POC pO2 102 H (80-95) mmHg POC HCO3 19 (19-24) deidra/L POC Total CO2 20 L (24-31) mmol/L POC Base Excess -6.0 (-9-1.8) deidra/L O2 Sat Pulse Oximetry 91 ABG pH (Temp Correct) 7.399 (7.35-7.45) ABG pCO2 (Temp Corrct 31 L (35-46) mmHg POC ABG pO2 at Pt Temp 102 POC ABG O2 Sat 98.0 H (90-95) % Rocael Test Pass O2 Delivery Device Ventilator Vent Mode AC POC FiO2 30 % End Tidal CO2 24 POC Sodium 141 (135-144) mmol/L Sodium (136-145) mmol/L POC Potassium 3.3 (3.3-5.0) mmol/L Potassium (3.5-5.1) mmol/L Chloride (98-107) mmol/L Carbon Dioxide (21-32) mmol/L Anion Gap (3-11) BUN (6-23) mg/dl Creatinine (0.6-1.4) mg/dl Est Cr Clr Drug Dosing ml/min eGFR BUN/Creatinine Ratio (10-20) Glucose (70-99(Fasting)) mg/dl POC Glucose (70-99) mg/dl POC Glucose (other) 232 H (70-99) mg/dl Estimat Average Glucose mg/dl Hemoglobin A1c (4.5-5.6) % Calcium (8.6-10.3) mg/dl Phosphorus (2.5-4.9) mg/dl Magnesium (1.7-2.4) mg/dl Unsaturated IBC (155-355) mcg/dl Total Bilirubin 1.6 H (0.2-1.0) mg/dl Direct Bilirubin (0-0.2) mg/dl AST (13-39) U/L ALT (7-52) U/L Alkaline Phosphatase (34-104) U/L Lactate Dehydrogenase 156 (86-244) U/L Total Protein 4.3 L (6.0-8.3) gm/dl Albumin 2.8 L (3.4-5.0) gm/dl Random Cortisol mcg/dl Fluid Neutrophils % % Fluid Lymphocytes % % Fluid Basophils % % Fluid Meso/Macro/Howell % % Fluid Comment Pleural Fluid Source Pleural Color Pleural Appearance Pleural pH (7.3-7.4) Pleural WBC (Auto) /uL Pleural RBC (Auto) /uL Pleural Total Protein gm/dl Pleural LDH U/L Pleural Glucose mg/dl Pleural Amylase U/L Stool Occult Bld Scrn (Negative) Stl C. cayetanensis PCR (NotDetected) Stool Rotavirus A PCR (NotDetected) Stl Adenov F 40/41 PCR (NotDetected) Stool Astrovirus (PCR) (NotDetected) Stool Campylobacter PCR (NotDetected) Stl C. diff Tox B Gene (Neg) Stl C.difficile Tox A&B (Negative) Stool Cryptosporidium PCR (NotDetected) Stl E.coli Shiga Tox PCR (NotDetected) Stl Enterotoxigenic E PCR (NotDetected) Stool EPEC (PCR) (NotDetected) Stool EAEC (PCR) (NotDetected) Stl E. histolytica PCR (NotDetected) Stool Giardia Lamblia PCR (NotDetected) Stool Salmonella PCR (NotDetected) Stool Sapovirus (PCR) (NotDetected) Stl P. shigelloides PCR (NotDetected) Stl Shigella/EIEC PCR (NotDetected) St Y.enterocolitica PCR (NotDetected) Stool Vibrio (PCR) (NotDetected) Stl Vibrio cholerae PCR (NotDetected) Stl Norovirus GI/GII PCR (NotDetected) YAQUELIN Screen (NEGATIVE) SS-A/Ro Antibody SS-B/La Antibody Sm ([place]) Antibody CERTIFIED SUBSTANCE ABUSE COUNSELOR Antibody Scl-70 Scleroderma Ab Anti-ds DNA (Crithidia) (NEGATIVE) Chromatin Antibody Anti-Centromere Ab Thyroid Antimicrosomal (<9) IU/mL Anti-Cardiolipin IgG Ab Anti-Cardiolipin IgA Ab APL-U/mL Anti-Cardiolipin IgM Ab Complement C3 (82-185) mg/dL Complement C4 (15-53) mg/dL Blood Parasites ID Blood Type Antibody Screen Crossmatch 11/30/24 11/30/24 11/30/24 Range/Units 18:20 17:29 14:15 WBC (4.8-10.8) K/ul RBC (4.70-6.10) M/uL Hgb 7.4 L (14.0-18.0) g/dl POC Hgb (14.0-18.0) g/dl Hct 24.7 L (42.0-52.0) % POC Hct (42-52) % MCV (80.0-100.0) fL MCH (25.0-34.0) pg MCHC (32.0-36.0) g/dL RDW Std Deviation RDW Coeff of Jourdan Plt Count (130-400) K/uL MPV Immature Gran % (Auto) % Neut % (Auto) % Lymph % (Auto) % Howell % (Auto) % Eos % (Auto) % Baso % (Auto) % Neut # (Auto) (1.40-6.50) K/uL Lymph # (Auto) (1.20-3.40) K/uL Howell # (Auto) (0.11-0.59) K/uL Eos # (Auto) (0.00-0.50) K/uL Baso # (Auto) (0.00-0.20) K/uL Immature Gran # (Auto) (0.01-0.20) K/uL Absolute Nucleated RBC (0.00-0.12) K/uL Nucleated RBC % (auto) % Neutrophils % (Manual) Band Neutrophils % Lymphocytes % (Manual) Prolymphocyte % Reactive Lymphs % (Man) Monocytes % (Manual) Eosinophils % (Manual) Basophils % (Manual) Metamyelocytes % (Man) Myelocytes % (Man) Promyelocytes % (Man) Blast Cells % (Manual) Plasma Cell % (Manual) Other Cells % Nucleated RBC % Neutrophils # (Manual) Band Neutrophils # Total Absolute Neuts Lymphocytes # (Manual) Prolymphocyte # Reactive Lymphs # Total Abs Lymphocytes Monocytes # (Manual) Eosinophils # (Manual) Basophils # (Manual) Metamyelocytes # (Man) Myelocytes # (Manual) Promyelocytes # (Man) Blast Cells # (Man) Plasma Cell # (Manual) Other Cells # Nucleated RBCs # (Man) Hypersegmented Neuts Hyposegmented Neuts Hypogranular Neuts Large Granular Lymphs # Lrg Granular Lymphs Hairy Cells Smudge Cells Toxic Granulation Toxic Vacuolation Dohle Bodies Alejandra Rods Platelet Estimate Hypogranular Platelets Giant Platelets Platelet Satelliting RBC Morphology Polychromasia Hypochromasia Poikilocytosis Basophilic Stippling Anisocytosis Microcytosis Macrocytosis Spherocytes Pappenheimer Bodies Sickle Cells Target Cells Tear Drop Cells Ovalocytes Stomatocytes [place] Bodies Echinocytes Acanthocytes (Spur) Rouleaux RBC Agglutinates Schistocytes Sezary Cell Haptoglobin (43-212) mg/dL PT (9.0-12.0) Seconds INR (0.9-1.1) Fibrinogen (184-400) mg/dl Factor VIII Activity (55 - 145) % Specimen Type Sample Site POC pH (7.35-7.45) POC pCO2 (35-46) mmHg POC pO2 (80-95) mmHg POC HCO3 (19-24) deidra/L POC Total CO2 (24-31) mmol/L POC Base Excess (-9-1.8) deidra/L O2 Sat Pulse Oximetry ABG pH (Temp Correct) (7.35-7.45) ABG pCO2 (Temp Corrct (35-46) mmHg POC ABG pO2 at Pt Temp POC ABG O2 Sat (90-95) % Rocael Test O2 Delivery Device Vent Mode POC FiO2 % End Tidal CO2 POC Sodium (135-144) mmol/L Sodium 146 H (136-145) mmol/L POC Potassium (3.3-5.0) mmol/L Potassium 3.8 (3.5-5.1) mmol/L Chloride 116 H (98-107) mmol/L Carbon Dioxide 23 (21-32) mmol/L Anion Gap 7 (3-11) BUN 59 H (6-23) mg/dl Creatinine 2.19 H (0.6-1.4) mg/dl Est Cr Clr Drug Dosing 32.2 ml/min eGFR 33.22 BUN/Creatinine Ratio 26.9 H (10-20) Glucose 173 H (70-99(Fasting)) mg/dl POC Glucose (70-99) mg/dl POC Glucose (other) 184 H (70-99) mg/dl Estimat Average Glucose mg/dl Hemoglobin A1c (4.5-5.6) % Calcium 7.6 L (8.6-10.3) mg/dl Phosphorus (2.5-4.9) mg/dl Magnesium (1.7-2.4) mg/dl Unsaturated IBC (155-355) mcg/dl Total Bilirubin (0.2-1.0) mg/dl Direct Bilirubin (0-0.2) mg/dl AST (13-39) U/L ALT (7-52) U/L Alkaline Phosphatase (34-104) U/L Lactate Dehydrogenase (86-244) U/L Total Protein (6.0-8.3) gm/dl Albumin (3.4-5.0) gm/dl Random Cortisol mcg/dl Fluid Neutrophils % 44 % Fluid Lymphocytes % 9 % Fluid Basophils % 5 % Fluid Meso/Macro/Howell % 42 % Fluid Comment Pleural Fluid Source Right Lung Pleural Color Yellow Pleural Appearance Clear Pleural pH 7.41 H (7.3-7.4) Pleural WBC (Auto) 73 /uL Pleural RBC (Auto) < 2000 /uL Pleural Total Protein < 3.0 gm/dl Pleural LDH 132 U/L Pleural Glucose 167 mg/dl Pleural Amylase 168 U/L Stool Occult Bld Scrn (Negative) Stl C. cayetanensis PCR (NotDetected) Stool Rotavirus A PCR (NotDetected) Stl Adenov F 40/41 PCR (NotDetected) Stool Astrovirus (PCR) (NotDetected) Stool Campylobacter PCR (NotDetected) Stl C. diff Tox B Gene (Neg) Stl C.difficile Tox A&B (Negative) Stool Cryptosporidium PCR (NotDetected) Stl E.coli Shiga Tox PCR (NotDetected) Stl Enterotoxigenic E PCR (NotDetected) Stool EPEC (PCR) (NotDetected) Stool EAEC (PCR) (NotDetected) Stl E. histolytica PCR (NotDetected) Stool Giardia Lamblia PCR (NotDetected) Stool Salmonella PCR (NotDetected) Stool Sapovirus (PCR) (NotDetected) Stl P. shigelloides PCR (NotDetected) Stl Shigella/EIEC PCR (NotDetected) St Y.enterocolitica PCR (NotDetected) Stool Vibrio (PCR) (NotDetected) Stl Vibrio cholerae PCR (NotDetected) Stl Norovirus GI/GII PCR (NotDetected) YAQUELIN Screen (NEGATIVE) SS-A/Ro Antibody SS-B/La Antibody Sm ([place]) Antibody CERTIFIED SUBSTANCE ABUSE COUNSELOR Antibody Scl-70 Scleroderma Ab Anti-ds DNA (Crithidia) (NEGATIVE) Chromatin Antibody Anti-Centromere Ab Thyroid Antimicrosomal (<9) IU/mL Anti-Cardiolipin IgG Ab Anti-Cardiolipin IgA Ab APL-U/mL Anti-Cardiolipin IgM Ab Complement C3 (82-185) mg/dL Complement C4 (15-53) mg/dL Blood Parasites ID Blood Type Antibody Screen Crossmatch 11/30/24 11/27/24 Range/Units 12:20 14:38 WBC (4.8-10.8) K/ul RBC (4.70-6.10) M/uL Hgb (14.0-18.0) g/dl POC Hgb (14.0-18.0) g/dl Hct (42.0-52.0) % POC Hct (42-52) % MCV (80.0-100.0) fL MCH (25.0-34.0) pg MCHC (32.0-36.0) g/dL RDW Std Deviation RDW Coeff of Jourdan Plt Count (130-400) K/uL MPV Immature Gran % (Auto) % Neut % (Auto) % Lymph % (Auto) % Howell % (Auto) % Eos % (Auto) % Baso % (Auto) % Neut # (Auto) (1.40-6.50) K/uL Lymph # (Auto) (1.20-3.40) K/uL Howell # (Auto) (0.11-0.59) K/uL Eos # (Auto) (0.00-0.50) K/uL Baso # (Auto) (0.00-0.20) K/uL Immature Gran # (Auto) (0.01-0.20) K/uL Absolute Nucleated RBC (0.00-0.12) K/uL Nucleated RBC % (auto) % Neutrophils % (Manual) Band Neutrophils % Lymphocytes % (Manual) Prolymphocyte % Reactive Lymphs % (Man) Monocytes % (Manual) Eosinophils % (Manual) Basophils % (Manual) Metamyelocytes % (Man) Myelocytes % (Man) Promyelocytes % (Man) Blast Cells % (Manual) Plasma Cell % (Manual) Other Cells % Nucleated RBC % Neutrophils # (Manual) Band Neutrophils # Total Absolute Neuts Lymphocytes # (Manual) Prolymphocyte # Reactive Lymphs # Total Abs Lymphocytes Monocytes # (Manual) Eosinophils # (Manual) Basophils # (Manual) Metamyelocytes # (Man) Myelocytes # (Manual) Promyelocytes # (Man) Blast Cells # (Man) Plasma Cell # (Manual) Other Cells # Nucleated RBCs # (Man) Hypersegmented Neuts Hyposegmented Neuts Hypogranular Neuts Large Granular Lymphs # Lrg Granular Lymphs Hairy Cells Smudge Cells Toxic Granulation Toxic Vacuolation Dohle Bodies Alejandra Rods Platelet Estimate Hypogranular Platelets Giant Platelets Platelet Satelliting RBC Morphology Polychromasia Hypochromasia Poikilocytosis Basophilic Stippling Anisocytosis Microcytosis Macrocytosis Spherocytes Pappenheimer Bodies Sickle Cells Target Cells Tear Drop Cells Ovalocytes Stomatocytes Andrews-[place] Bodies Echinocytes Acanthocytes (Spur) Rouleaux RBC Agglutinates Schistocytes Sezary Cell Haptoglobin (43-212) mg/dL PT (9.0-12.0) Seconds INR (0.9-1.1) Fibrinogen (184-400) mg/dl Factor VIII Activity (55 - 145) % Specimen Type Sample Site POC pH (7.35-7.45) POC pCO2 (35-46) mmHg POC pO2 (80-95) mmHg POC HCO3 (19-24) deidra/L POC Total CO2 (24-31) mmol/L POC Base Excess (-9-1.8) deidra/L O2 Sat Pulse Oximetry ABG pH (Temp Correct) (7.35-7.45) ABG pCO2 (Temp Corrct (35-46) mmHg POC ABG pO2 at Pt Temp POC ABG O2 Sat (90-95) % Rocael Test O2 Delivery Device Vent Mode POC FiO2 % End Tidal CO2 POC Sodium (135-144) mmol/L Sodium (136-145) mmol/L POC Potassium (3.3-5.0) mmol/L Potassium (3.5-5.1) mmol/L Chloride (98-107) mmol/L Carbon Dioxide (21-32) mmol/L Anion Gap (3-11) BUN (6-23) mg/dl Creatinine (0.6-1.4) mg/dl Est Cr Clr Drug Dosing ml/min eGFR BUN/Creatinine Ratio (10-20) Glucose (70-99(Fasting)) mg/dl POC Glucose (70-99) mg/dl POC Glucose (other) 140 H (70-99) mg/dl Estimat Average Glucose mg/dl Hemoglobin A1c (4.5-5.6) % Calcium (8.6-10.3) mg/dl Phosphorus (2.5-4.9) mg/dl Magnesium (1.7-2.4) mg/dl Unsaturated IBC (155-355) mcg/dl Total Bilirubin (0.2-1.0) mg/dl Direct Bilirubin (0-0.2) mg/dl AST (13-39) U/L ALT (7-52) U/L Alkaline Phosphatase (34-104) U/L Lactate Dehydrogenase (86-244) U/L Total Protein (6.0-8.3) gm/dl Albumin (3.4-5.0) gm/dl Random Cortisol mcg/dl Fluid Neutrophils % % Fluid Lymphocytes % % Fluid Basophils % % Fluid Meso/Macro/Howell % % Fluid Comment Pleural Fluid Source Pleural Color Pleural Appearance Pleural pH (7.3-7.4) Pleural WBC (Auto) /uL Pleural RBC (Auto) /uL Pleural Total Protein gm/dl Pleural LDH U/L Pleural Glucose mg/dl Pleural Amylase U/L Stool Occult Bld Scrn (Negative) Stl C. cayetanensis PCR (NotDetected) Stool Rotavirus A PCR (NotDetected) Stl Adenov F 40/41 PCR (NotDetected) Stool Astrovirus (PCR) (NotDetected) Stool Campylobacter PCR (NotDetected) Stl C. diff Tox B Gene (Neg) Stl C.difficile Tox A&B (Negative) Stool Cryptosporidium PCR (NotDetected) Stl E.coli Shiga Tox PCR (NotDetected) Stl Enterotoxigenic E PCR (NotDetected) Stool EPEC (PCR) (NotDetected) Stool EAEC (PCR) (NotDetected) Stl E. histolytica PCR (NotDetected) Stool Giardia Lamblia PCR (NotDetected) Stool Salmonella PCR (NotDetected) Stool Sapovirus (PCR) (NotDetected) Stl P. shigelloides PCR (NotDetected) Stl Shigella/EIEC PCR (NotDetected) St Y.enterocolitica PCR (NotDetected) Stool Vibrio (PCR) (NotDetected) Stl Vibrio cholerae PCR (NotDetected) Stl Norovirus GI/GII PCR (NotDetected) YAQUELIN Screen (NEGATIVE) SS-A/Ro Antibody SS-B/La Antibody Sm ([place]) Antibody CERTIFIED SUBSTANCE ABUSE COUNSELOR Antibody Scl-70 Scleroderma Ab Anti-ds DNA (Crithidia) (NEGATIVE) Chromatin Antibody Anti-Centromere Ab Thyroid Antimicrosomal (<9) IU/mL Anti-Cardiolipin IgG Ab Anti-Cardiolipin IgA Ab APL-U/mL Anti-Cardiolipin IgM Ab Complement C3 (82-185) mg/dL Complement C4 (15-53) mg/dL Blood Parasites ID Blood Type O Positive Antibody Screen NEGATIVE Crossmatch See Detail Diagnostic Findings Chest CTA 11/27/24 14:09 EXAM: CT Angiography Chest With Intravenous Contrast INDICATION: Upper abdominal pain and diarrhea. TECHNIQUE: Axial computed tomographic angiography images of the chest with intravenous contrast. Sagittal and coronal reformatted images were created and reviewed. This CT exam was performed using one or more of the following dose reduction techniques: automated exposure control, adjustment of the mA and/or kV according to patient size, and/or use of iterative reconstruction technique. MIP reconstructed images were created and reviewed. CONTRAST: 117 ml of Optiray 320 was administered intravenously. COMPARISON: 07/18/2024 FINDINGS: Pulmonary arteries: No abnormality noted. No pulmonary embolism. Aorta: No acute change noted. No thoracic aortic aneurysm or dissection. Superior mesenteric artery: There is predominantly soft plaque at the origin of the superior mesenteric artery with roughly 75% stenosis. Lungs and pleural spaces: There is a small to moderate layering right pleural effusion. Centrilobular emphysematous changes stable. Airway thickening and atelectasis noted in the right middle and lower lobes. No bronchiectasis or honeycombing. No pneumothorax. No mass. Heart: Cardiomegaly. Small pericardial effusion. No evidence of right heart strain. Bones/joints: No acute or atypical chronic changes. Soft tissues: No abnormality noted. Lymph nodes: No abnormality noted. No enlarged lymph nodes. Intraperitoneal space: Small amounts of free fluid noted in the upper abdomen. IMPRESSION: 1. No pulmonary embolus or aortic dissection. 2. Bronchitis and atelectasis in the right middle and lower lobes. 3. Small to moderate right pleural effusion. 4. Mild ascites. 5. 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 ACT 112: Negative or not required by law. Electronically signed by Quiana Isidro 11-27-2024 3:35 PM Paracentesis Ultrasound 11/28/24 07:00 ULTRASOUND-GUIDED PARACENTESIS CLINICAL HISTORY: Ascites PROCEDURE: Procedure and risks were explained. Informed consent was obtained. A final timeout was completed. The abdomen was prepped and draped in sterile fashion. 1% lidocaine was utilized for skin anesthesia. Utilizing ultrasound guidance, a 5 Amharic safety centesis catheter was advanced into the left lower quadrant pocket of ascites. Ultrasound images were obtained. 2.8 L of ascites fluid was removed with 1 L sent to lab for analysis. The catheter was removed and Band-Aid applied. The patient tolerated the procedure well. Vital signs will be monitored postprocedure. IMPRESSION: Ultrasound-guided paracentesis as above. Performed, dictated, and signed by Henrik Arellano PA-C; to be co-signed by Dr. German Perkins. Electronically signed by: German Perkins M.D. 11/29/2024 7:[address] 11/29/24 12:05 CT OF THE CHEST WITHOUT IV CONTRAST CLINICAL HISTORY: Rhonchi/rales. COMPARISON STUDY: Chest radiograph July 25, 2024. Chest CT November 27, 2024. TECHNIQUE: Axial images of the chest were obtained without IV contrast. Images were reviewed in the axial, sagittal, and coronal planes. IV contrast was not administered for this examination. Automated exposure control was utilized for the study. A dose lowering technique was utilized adhering to the principles of ALARA. FINDINGS: Moderate right and small left pleural effusions have increased in size since chest CT of November 27, 2024. Extensive right lower lobe airspace opacity with volume loss favors compressive atelectasis. There is also segmental atelectasis within the right upper and right lower lobes. There are secretions within the airways. There is no pneumothorax. Lungs are suboptimally assessed due to respiratory motion. Severe emphysema. The heart is moderately enlarged. There is no pericardial effusion. There is no thoracic lymphadenopathy. The abdomen and pelvis CT will be reported separately. Large volume pneumoperitoneum and upper abdominal ascites is present. There is body wall anasarca. IMPRESSION: 1. Large volume pneumoperitoneum consistent with a perforated hollow viscus. Findings better depicted on CT of the abdomen and pelvis which will be reported separately. Surgical consultation is recommended. Findings discussed with Dr. Almonte at time of dictation. 2. Ascites and anasarca. 3. Moderate right and small left pleural effusions which have increased in size since prior exam. Possible mild interstitial pulmonary edema. Extensive right lower lobe airspace opacities with volume loss favors compressive atelectasis. 4. Emphysema. 5. Cardiomegaly. ACT 112: Negative or not required by law. Electronically signed by: German Perkins M.D. 11/29/2024 1:56 PM Venous Doppler Study 12/03/24 09:30 BILATERAL LOWER EXTREMITY VENOUS DOPPLER CLINICAL HISTORY: Recent surgery. Lower extremity edema. Evaluate for deep venous thrombus. COMPARISON STUDY: No previous studies for comparison. TECHNIQUE: Sonography of the deep venous system of the bilateral lower extremities was performed. Compression and augmentation were evaluated. FINDINGS: The bilateral common femoral, superficial femoral and popliteal veins were compressible. Augmentation was normal. Flow was shown within the deep calf vessels. IMPRESSION: No evidence of deep venous thrombus within the bilateral lower extremities. ACT 112: Negative or not required by law. Electronically signed by: German Perkins M.D. 12/03/2024 12:01 PM Chest X-Ray 12/04/24 09:05 XR chest 1V portable CLINICAL HISTORY: f/u COMPARISON STUDY: Chest CT November 29, 2024. Chest radiograph December 03, 2024. FINDINGS: The lines and tubes have been removed. There is no pneumothorax. Moderate right and small left pleural effusions with associated airspace opacities are unchanged. Pulmonary edema persists. Cardiomediastinal silhouette is stable. IMPRESSION: 1. Interval removal of lines and tubes. 2. Persistent pulmonary edema with bilateral pleural effusions, right larger left, with associated airspace opacities which could reflect atelectasis or pneumonia. ACT 112: Negative or not required by law. Electronically signed by: German Perkins M.D. 12/04/2024 9:34 AM Abdomen/Pelvis CT 12/05/24 11:[address] WITH IV CONTRAST CT DOSE: 1278.62 mGy.cm HISTORY: febrile, wbc 33k, eval intra-abd abscess vs leak TECHNIQUE: Multiaxial CT images of the abdomen and pelvis were performed following the IV administration of 93 cc of Optiray, A dose lowering technique was utilized adhering to the principles of ALARA. COMPARISON STUDY: 11/29/2024 FINDINGS: There are moderate bilateral pleural effusions with adjacent lung base consolidation, stable. ABDOMEN: Stable lobular contour of the liver, normal variation versus early cirrhosis.. No focal liver abnormality seen. There is a possible small amount of gallbladder sludge. No evidence of acute cholecystitis. Spleen, pancreas, and adrenal glands are unremarkable. Kidneys show no hydronephrosis or calculi. There is an interval well positioned jejunostomy tube. There are scattered atherosclerotic calcifications. No abdominal aortic aneurysm. Pelvis: Sheth catheter is present. Urinary bladder is decompressed. There is interval partial small bowel resection with anastomosis at the proximal jejunum. There is a small to moderate amount of diffuse free fluid in the abdomen and pelvis with thin enhancing rim at the fluid adjacent to the inferior right liver and in the right paracolic gutter. There is a small amount of free air. There are multiple dilated small bowel loops at the central and upper abdomen measuring up to 4 cm. No colonic distention. Osseous structures: No acute osseous findings. IMPRESSION: 1. Small to moderate amount of free fluid at the abdomen and pelvis with thin enhancing rim at the fluid adjacent to the liver and in the right paracolic gut ter, could represent infected fluid. There is a small amount of free air which could be due to the prior surgery. However, anastomotic leak is also a possibility. 2. Mildly dilated small bowel loops at the central and upper abdomen, ileus versus early small bowel obstruction. 3. Otherwise as described. ACT 112: Positive. There are findings on this exam that require communication between the performing entity and the patient following Patient Test Result Information Act ([place] Act 112) guidelines. The above report was generated using voice recognition software. It may contain grammatical, syntax or spelling errors. Electronically signed by: Sravan Garcia M.D. 12/05/2024 1:52 PM PG Care Time/CCT Total # of Minutes Spent Total Time Spent with Patient: Total time spent is greater than 50% in coordination of care (as documented) at patient's floor/unit and/or counseling patient: I spent 115 minutes overall addressing this case: 10 min in medical data review/discussion with referring provider(s) and/or preparation for the visit 15 min in direct interaction with the patient/exam 45 min in Advance Care Planning/Goals of Care discussions as detailed above in note (must be >16min) 15 min in subsequent review and synthesis of assessment and plan 30 min communicating with other providers regarding the patient's case: Primary team, nursing, care management, [facility], critical care medicine Advanced Care Planning 70586 Advanced Care Planning 30 Min 85473 Advanced Care Planning Additional 30 Min [place] [address] SUB INP/OBS CARE 3/50MIN (25 - SIGNIFICANT, SEPARATELY IDENTIFIABLE ) Patient Type Established Medical Decision Making High Complexity Diagnoses Altered mental status R41.82 Weakness generalized R53.1 Discussion about advance care planning held with family member Z71.0 Encounter for end of life education, guidance and counseling Need for comfort care MSOF (multiple systems organ failure) Palliative care by specialist Z51.5 Additional Codes Advanced Care Planning - 84689 Advanced Care Planning Additional 30 Min: 99546 Advanced Care Planning Additional 30 Min ([id number]) Advanced Care Planning - 57720 Advanced Care Planning 30 Min: 44169 Advanced Care Planning 30 Min ([id number])
--- NOTE | 2024-12-07 21:14 | Death Pronouncement Note ---
Date of Service December 07, 2024 Pronouncement Note Admission Date November 27, 2024 Date and Time of Date of : 12/07/24 Time of : 19:34 Summary Alerted by nursing that patient was unresponsive. When I arrived at the rom the patient was: Constitutional: laying motionless in hospital bed HEENT: pupils fixed and dilated CV: no appreciable heart sounds Resp: no chest rise, no breath sounds appreciated Skin: pale, cool to touch Neuro: unresponsive to verbal stimuli and sternal rub Additional Data Confirmation of : no pulse, no respirations, no heart sounds and pupils fixed and dilated Pronouncement Performed By: Resident Physician (Yousuf De Santiago) Family: contacted (by nursing) Attending physician: Laure Flores MD Was code activated?: No Autopsy requested?: No type copy examiner notified?: No Resident Activity Tracking Resident Involvement: Resident Care Provided Care Provided: Adult Hospital Medicine
--- NOTE | 2024-12-08 18:47 | Discharge Summary ---
Date of Service December 08, 2024 Admission HPI Per Admitting Provider This patient is a 64-year-old male with a history of alcohol use disorder, severe anemia, bedbug infestation, COPD, and SVT who does not follow regularly with a physician who presents via ambulance with abdominal pain. The prehospital personnel noted that the patient was lying in filthy clothing with diarrhea around him likely for days and there were bedbugs infested throughout the house. The patient denies N/V, but reports he has had very poor appetite for a couple of weeks. His abdominal pain is mostly mid and left sided and is mild in nature. He denies any blood in the stool or black tarry stools. He rep orts being extremely weak and lightheaded and he called 911. In the ER, he was found to have brown stool but it was heme positive on exam. He had severe anemia with a hemoglobin of 5.8. He had hypernatremia, mild non anion gap metabolic acidosis, mildly elevated LFTs, mildly elevated troponin, was hypotensive and tachycardic. His alcohol level was undetectable and he reports that he is only been drinking 1 beer a day for the last couple of months. 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 A CT abdomen/pelvis showed moderate ascites, moderate body wall edema, bilateral inguinal hernias and scattered small bowel thickening consistent with gastroenteritis or secondary to chronic ascites. In the ER, he was given IV fluid resuscitation, IV Protonix, IV thiamine, and started on a blood transfusion. Admission Exam Per Admitting Provider Constitutional: + ill appearing and + disheveled Eyes: + anicteric sclerae Neck: trachea midline, no thyromegaly Respiratory: normal respiratory effort and + cough (Frequent) Auscultation: + diminished lung sounds (At bases bilaterally); no crackles, no rhonchi and no wheezes Cardiovascular: Rate/Rhythm: regular rhythm and + tachycardic Heart Sounds: no murmur Extremities: + edema (2+ pitting edema bilateral LEs to the abdomen, 1+ edema hands and arms) Gastrointestinal (Abdomen): Inspection/Auscultation: abdomen normal to inspection, normal bowel sounds and + abdominal edema (Pitting edema of abdomen) Percussion/Palpation: abdomen soft; abdomen nontender and no guarding Musculoskeletal: Extremities: no cyanosis Skin: Multiple 2 to 3 mm circular scabs on arms, legs, scalp and sides of face Erythema in groin folds Neurologic: moves all extremities and awake; no focal motor deficits Psychiatric: Orientation: oriented x 3 and cooperative; + not alert (Drowsy after receiving Dilaudid but wakes up easily) Genitourinary: no penis abnormality and no scrotum abnormality Principal Diagnosis septic shock secondary to bowel perf Discharge Exam No exam performed by this physician as pt overnight. Please refer to note for physical exam. Discharge Data Allergies Allergy/AdvReac Type Severity Reaction Status Date / Time No Known Drug Allergies Allergy Unknown Verified 07/19/24 18:46 Consultations 11/27/24 16:14 ED Decision to Admit Stat 11/27/24 19:22 Consult Gastroenterology Routine 11/29/24 13:49 Consult Urology Routine 11/29/24 13:58 Consult General Surgery Stat 11/29/24 15:09 Consult [employer]ice Routine 11/29/24 18:05 Consult [employer] App[employer]ice Routine 11/30/24 08:07 Consult Nephrology Routine 12/01/24 15:06 Consult Cardiology Routine 12/05/24 09:47 Consult Palliative Care Routine Procedures Performed Operation Date: 11/29/24 15:50 Actual Procedures p Exploratory Laparotomy, Small Bowel Resection(Not Applicable) - Winston Caal MD Ordered Studies 11/27/24 14:09 CT abd pelvis IV con only Stat CT angio chest PE protocol Stat 11/28/24 07:00 IR paracentesis abd w/img US Routine 11/29/24 12:05 CT Abd and Pelvis [CT abd pelvis wo con] Urgent CT chest diagnostic wo con Urgent 11/30/24 18:02 US point of care ultrasound Urgent 12/03/24 09:30 US venous doppler LE BI Urgent 12/05/24 11:33 CT Abd and Pelvis [CT abd pelvis IV con only] Routine Hospital Course (1) Anemia: (2) GIB (gastrointestinal bleeding): (3) Alcohol abuse: (4) Abdominal ascites: (5) History of Clostridioides difficile infection: (6) Pneumoperitoneum: (7) Septic shock: (8) Small bowel perforation: (9) ISA (acute kidney injury): Jameson Epps was transitioned to comfort care on 12/06/2024. He on 12/07/2024. His previous plan of care were as follows: This patient is a 64-year-old male with a history of alcohol use disorder, severe anemia, bedbug infestation, COPD, and SVT admitted with septic shock and peritonitis. S/P exploratory laparotomy for bowel perforation. Septic Shock/Pneumoperitoneum/ S/P exploratory laparotomy for bowel perforation - S/P laparotomy, vasopressors, IV ABX - Post op: Unstable, downtrending Hb - Poor prognosis per Surgery; do not plan for additional intervention d/t - MODS post procedure - POA and palliative meeting: Comfort care decided. Other issues complicating hospital admission: BL pleural effusion, Severe anemia, GI bleed, Acute decompensated Heart failure, ISA/ATN, Hypernatremia, H/O C diff/ Thrombocytopenia, Hypokalemia Total Time Total Time Spent Total Time Spent (In Minutes): as per attending attestation Discharge Plan Discharge Items Patient Disposition: Discharge Diagnosis: Other Date/Time: 12/07/24 19:34 Supervising Physician Co-Signing Physician Notes 64 y/o M with h/o AUD, severe anemia, bedbug infestation, COPD, and SVT who does not follow regularly with a physician who presents with abdominal pain, ascites, and severe anemia. Developed into worsening abdominal pain and found to have perforated viscus. Here with septic shock and peritonitis. S/p Ex lap. Septic shock/peritonitis - Needed to be intubated. s/p Ex lap. Was kept on pressors and IV antibiotics. -ESTRELLITA drainage bilious - CT abdomen with post-op changes/ileus. -Also developed GI bleed last night with drop in hemoglobin. Needed 6 units PRBC on admission due to severe anemia. -Delirium persisted - likely from alc withdrawal + hospital stay -New onset HFrEF 25% EF and recurrent pleural effusion - s/p thoracentesis on 11/30. -Developed ISA on CKD -Severe Hypernatremia -ISA on CKD Considering worse overall prognosis in current state - Palliative care medicine consulted- Met with Sister - Transitioned to Comfort care. -Date of 12/07/2024. Resident Activity Tracking Resident Involvement: Resident Care Provided Care Provided: [facility]
== END 2024-12-07 20:10 | disposition expired | DRG 853 ==
LOC: ED 13:35 → EDINP 18:15 → SUATTDRO 18:15 → 4W 19:22 → 1E 11-29 14:44 → 3W 12-06 11:58
DX: N47.2 Paraphimosis; K65.2 Spontaneous bacterial peritonitis; T17.218A Gastric contents in pharynx causing other injury, initial encounter; B88.2 Other arthropod infestations; G93.40 Encephalopathy, unspecified; A09 Infectious gastroenteritis and colitis, unspecified; N17.0 Acute kidney failure with tubular necrosis; Z51.5 Encounter for palliative care; Z86.19 Personal history of other infectious and parasitic diseases; D75.838 Other thrombocytosis; E87.20 Acidosis, unspecified; A41.9 Sepsis, unspecified organism; E46 Unspecified protein-calorie malnutrition; R77.0 Abnormality of albumin; D50.0 Iron deficiency anemia secondary to blood loss (chronic); R57.1 Hypovolemic shock; K66.8 Other specified disorders of peritoneum; T14.8XXA Other injury of unspecified body region, initial encounter; R74.8 Abnormal levels of other serum enzymes; E87.6 Hypokalemia; R65.21 Severe sepsis with septic shock; J90 Pleural effusion, not elsewhere classified; Y84.4 Aspiration of fluid as the cause of abnormal reaction of the patient, or of later complication, without mention of misadventure at the time of the procedure; K91.71 Accidental puncture and laceration of a digestive system organ or structure during a digestive system procedure; R18.8 Other ascites; J96.01 Acute respiratory failure with hypoxia; K92.2 Gastrointestinal hemorrhage, unspecified; K55.1 Chronic vascular disorders of intestine; I50.9 Heart failure, unspecified; D62 Acute posthemorrhagic anemia; K91.89 Other postprocedural complications and disorders of digestive system; I47.10 Supraventricular tachycardia, unspecified; E87.0 Hyperosmolality and hypernatremia; J44.9 Chronic obstructive pulmonary disease, unspecified; F10.10 Alcohol abuse, uncomplicated; W57.XXXA Bitten or stung by nonvenomous insect and other nonvenomous arthropods, initial encounter; F17.210 Nicotine dependence, cigarettes, uncomplicated; T41.205A Adverse effect of unspecified general anesthetics, initial encounter